=== PATIENT | female | born 1935 | race Caucasian/White ===

== ENCOUNTER 2019-05-22 04:33 | Inpatient (IN) | payer MEDICARE, OTHER, SELFPAY ==
[2019-05-22] VITALS (26 sets, daily range): BP systolic 81–179; BP diastolic 24–68; PULSE 85–133; RESP 14–32; TEMP 35.8–37.6; O2SAT 97–100; BMI 23.2; BMI 22.8
--- NOTE | 2019-05-22 04:54 | CT_ITS ---
STUDY: CT ABDOMEN AND PELVIS WITHOUT CONTRAST REASON FOR EXAM: Female, 84 years old. Abdominal pain for 4 days RADIATION DOSAGE (If Supplied By Facility): CTDIvol = ( 6.05 ) mGy, DLP = ( 287.10 ) mGycm TECHNIQUE: Transaxial images were obtained from the dome of the diaphragm to the symphysis pubis without oral contrast, and without intravenous contrast. Sagittal and coronal images were reconstructed. Individualized dose optimization techniques were used for this CT. COMPARISON: None. FINDINGS: The visualized lung bases are unremarkable. The visualized portions of the heart are within normal limits. Normal liver. Normal gallbladder and extrahepatic biliary system. Normal spleen. Normal pancreas. Normal bilateral adrenal glands. Normal right kidney. There is a simple left renal cyst measuring approximately 4 cm in diameter. There is circumferential thickening of the distal esophagus. Normal visualized stomach. There are dilated fluid-filled loops of small bowel measuring up to 3.5 cm. There is scattered colonic diverticulosis without evidence for diverticulitis. The appendix is nonvisualized. No pneumatosis or free air is visualized. There is diffuse atherosclerotic calcification of the abdominal aorta, without a demonstrated aneurysm. Normal inferior vena cava. Normal retroperitoneum. Normal urinary bladder. Normal abdominal wall. There are diffuse degenerative changes of the visualized lumbar spine. CT/Abdomen/Pelvis without Cont IMPRESSION: Multiple dilated fluid filled loops of small bowel throughout the central abdomen concerning for small bowel obstruction. Transition point is difficult to identify due to lack of oral contrast however likely within the right lower quadrant. The distal ileum is decompressed. There is a small amount of free intra-abdominal fluid. Circumferential wall thickening of the visualized distal esophagus. Further evaluation with endoscopy may be of value. Electronically Signed: Raymond Mclaughlin, at 5:56 EDT Tel , Service support ,
--- NOTE | 2019-05-22 04:56 | ED.DCSUM_ITS ---
History of Present Illness Chief Complaint: Nausea/Vomiting Informant: Patient, Family Onset: Days - 3 to 4 days Context: Gradual Onset Timing: Waxes and wanes Current Severity: Moderate Maximum Severity: Moderate Narrative: Patient presents with a 3 to 4-day history of abdominal cramping, nausea, and vomiting. She denies diarrhea. She did not measure her temperature does report having some chills and sweats. She now points to the epigastric region and describing her area of pain. She has had prior appendectomy and left oophorectomy. Past Medical History - Allergies and Home Meds Allergies/Adverse Reactions: Allergies betaxolol [From Betoptic] Allergy (Verified 05/22/19 04:34) Unknown brimonidine [From Alphagan P] Allergy (Verified 05/22/19 04:34) Unknown cephalexin [From Keflex] Allergy (Verified 05/22/19 04:34) Unknown nabumetone [From Relafen] Allergy (Verified 05/22/19 04:34) Unknown Primary Care Physician: Claire Sharif MD [Primary Care Provider] - Prior records reviewed: Yes Past Medical History: - - Reviewed Surgical History: appendectomy, - - Left oophorectomy Lives: With Family Smoking Status: Former smoker - Family History Maternal Family History: Reports: Cancer, Diabetes Review of Systems General: Reports: Chills, Sweats Eyes: Denies: Visual changes - bilaterally ENT: Denies: Bilateral ear pain Cardiovascular: Denies: Chest pain Respiratory: Denies: Dyspnea Gastrointestinal: Reports: Abdominal pain, Nausea, Vomiting. Denies: Diarrhea Genitourinary: Denies: Dysuria Musculoskeletal: Denies: Back pain Skin: Denies: Rash Neurological: Denies: Headache Endocrine: Denies: Polyuria, Polydipsia Hematologic: Denies: Easy bruising Allergy: Denies: Uticaria Physical Exam Vital Signs/Narrative: Vital Signs Temp Pulse Resp BP Pulse Ox 05/22/19 04:34 98.3 F 85 16 174/66 H 97 Inital Vital Signs reviewed: Yes General: Well nourished, Well developed Head: Normocephalic ENT: Dry mucous membranes Neck: Supple Cardiovascular: Regular rate, Regular rhythm Respiratory: No distress, CTA bilaterally Abdomen: Soft, Normal bowel sounds, Tender - Epigastric tenderness to palpation., - - Abdomen is mildly distended. Extremities: Nontender Skin: Normal color Neurological: Alert, Oriented x3 Psychological: Normal affect Diagnostic/Tx/Re-eval Impressions Abdomen/Pelvis CT 05/22/19 04:54 IMPRESSION: Multiple dilated fluid filled loops of small bowel throughout the central abdomen concerning for small bowel obstruction. Transition point is difficult to identify due to lack of oral contrast however likely within the right lower quadrant. The distal ileum is decompressed. There is a small amount of free intra-abdominal fluid. Circumferential wall thickening of the visualized distal esophagus. Further evaluation with endoscopy may be of value. Electronically Signed: Raymond Mclaughlin, at 5:56 EDT Tel , Service support , 05/22/19 04:54 Abdomen/Pelvis without Cont [CT] Stat 05/22/19 06:18 Abdomen Single View (Portable) [RAD] Stat Laboratory Results 05/22/19 05/22/19 04:44 04:44 WBC 6.9 RBC 4.84 Hgb 14.6 Hct 44.7 MCV 92.4 MCH 30.2 MCHC 32.7 RDW Std Deviation 44.1 H RDW Coeff of Alanna 13.0 Plt Count 428 MPV 9.4 Immature Gran % (Auto) 0.300 Neut % (Auto) 61.2 Lymph % (Auto) 24.9 Harlan % (Auto) 12.6 H Eos % (Auto) 0.4 Baso % (Auto) 0.6 Absolute Neuts (auto) 4.2 Absolute Lymphs (auto) 1.71 Nucleated RBC % 0 Sodium 130 L Potassium 4.7 Chloride 94 L Carbon Dioxide 24.0 Anion Gap 12 BUN 52 H Creatinine 1.37 H Estim Creat Clear Calc 22.35 Est GFR (MDRD) Af Amer 47 L Est GFR (MDRD) Non-Af 39 L BUN/Creatinine Ratio 38.0 H Glucose 231 H Calcium 9.4 Total Bilirubin 0.60 Direct Bilirubin 0.15 AST 10 L ALT 17 Alkaline Phosphatase 65 Total Protein 8.6 H Albumin 3.4 Globulin 5.2 H Lipase 78 - Medical Decision Making Patient was given Zofran and IV fluids. Test results were discussed with the patient and family at bedside. I spoke with Dr. Richards, surgery on-call for [facility] as the patient's primary care physician is Dr. Sharif. She asked that we do place a NG tube. She will follow along in the hospital. I will speak with hospitalist. ED Disposition - Plan for ED Patient: Disposition: Acute Care Hospital [facility] Diagnosis: Small bowel obstruction Referrals: Claire Sharif MD [Primary Care Provider] -
[2019-05-22] MEDS: Ondansetron 4 MG/2 ML Vial IV ×2 (05:00→07:14)
[2019-05-22 05:03] LABS: Absolute Lymphocyte Count 1.71 X10^3/uL (0.83-4.51); Absolute Neutrophil Count 4.2 X10^3/uL (2.0-7.7); Basophil# 0.04 X10^3/uL; Basophil% 0.6 % (0-1); Eosinophil# 0.03 X10^3/uL; Eosinophils% 0.4 % (0-5); Hematocrit 44.7 % (37-47); Hemoglobin 14.6 g/dL (12.0-15.0); Lymphocyte # 1.71 X10^3/ul (4.0); Lymphocyte % 24.9 % (19-41); Mean Corp Hgb Conc 32.7 g/dL (32-36); Mean Corpuscular Hgb 30.2 pg (27.0-32.0); Mean Corpuscular Volume 92.4 fL (81-99); Mean Platelet Vol. 9.4 fl (6.2-12.0); Monocyte# 0.87 X10^3/uL; Monocyte% 12.6 % (0-10); NRBC Flagged by Analyzer 0 % (0-5); Neutrophil # 4.21 X10^3/uL (2.7-7.7); Neutrophil % 61.2 % (47-70); POSITIVE MORPHOLOGY YES; Platelet Count 428 K/mm3 (150-450); RBC Distribution Width SD 44.1 fl (35.1-43.9); Red Blood Count 4.84 M/mm3 (4.2-5.4); White Blood Count 6.9 K/mm3 (4.4-11.0)
[2019-05-22 05:05] LABS: Differential Indicated SCAN CRITERIA MET
[2019-05-22] MEDS: 0.9% Normal Saline 1,000 ML 150 ML IV ×2 (05:12→18:32)
[2019-05-22 05:17] LABS: AST(SGOT) 10 U/L (15-37); Alanine Aminotransfer ALT/SGPT 17 U/L (13-56); Albumin, Serum 3.4 g/dL (3.2-5.0); Alkaline Phosphatase 65 U/L (45-117); Anion Gap 12 (5-15); BUN 52 mg/dL (7-18); Bilirubin, Direct 0.15 mg/dL (0.00-0.30); Calcium,Total 9.4 mg/dL (8.5-10.1); Chloride 94 mmol/L (98-107); Creatinine, Serum 1.37 mg/dL (0.55-1.02); EST Glomerular Filtration Rate 39 mL/min (>60); Est Glom Filt Rate - Afr Amer 47 mL/min (>60); Estimated Creatinine Clearance 22.35 ml/min; Globulin 5.2 g/dL (2.2-4.2); Glucose 231 mg/dL (74-106); Lipase 78 U/L (73-393); Potassium 4.7 mmol/L (3.5-5.1); Protein, Total 8.6 g/dL (6.4-8.2); Sodium Level 130 mmol/L (136-145)
--- NOTE | 2019-05-22 06:18 | RAD_ITS ---
HISTORY: NG PLACEMENT ADDITIONAL HISTORY: None. COMPARISON: CT 05/22/2019 Technique: Supine abdominal radiographs Number of images including paperwork: 1 FINDINGS: Radiograph includes the lower chest and upper abdomen. FREE AIR: None detected. BOWEL GAS PATTERN: Multiple dilated loops of small bowel are present in the upper abdomen consistent with obstruction seen on CT. CALCIFICATIONS: No definite urinary tract calculi. ORGANS: No evidence of organomegaly. SOFT TISSUES: Unremarkable. BONES: No acute skeletal findings. DEVICES: Nasogastric tube is present with tip in the stomach and side-port in the distal esophagus, suggest advancement by about 5 cm. RAD/Abdomen Single View (Portable) IMPRESSION: 1. Multiple dilated loops of small bowel are present in the upper abdomen consistent with obstruction seen on CT. 2. Nasogastric tube is present with tip in the stomach and side-port in the distal esophagus, suggest advancement by about 5 cm. at 0756 Reported and signed by: Adwoa Rodriguez MD Electronically Signed: Adwoa Rodriguez MD at 7:55 EDT Tel , Service support ,
[2019-05-22 06:21] LABS: Mucous, Urine 0 SEEN /hpf (<or=2+)
[2019-05-22 06:23] LABS: Color, Urine Yellow (Yellow); Glucose, Dipstick Normal (Normal); Ketone-Dipstick Negative (Negative); Leukocyte Esterase-Dipstick 500 /ul (Negative); Nitrite-Dipstick Negative (Negative); Occult Blood-Urine Negative /ul (Negative); Protein-Dipstick 30 mg/dl (Negative); Specific Gravity, Urine 1.025 (1.002-1.030); Urine Bilirubin Dipstick Negative (Negative); Urine Clarity Sl. Cloudy (Clear); Urine Urobilinogen Normal (Normal)
[2019-05-22] MEDS: Oxymetazoline 0.05% 1 SPRAY SPRAY.BTL 2 SPRAY NASAL (06:36)
[2019-05-22 06:38] LABS: Red Blood Cells-Urine 0-5 SEEN /hpf (0-5); Squamous Epithelial Cells - UA 0-5 SEEN /hpf (5-10); Transitional Epithelial - Ur 5-10 SEEN /hpf (0-5); White Blood Cells 0-5 SEEN /hpf (0-5)
[2019-05-22] MEDS: Lidocaine 4% 5 ML Ampul 2 ML INHALATION (06:38)
[2019-05-22 06:39] LABS: Bacteria 1+ /hpf (None Seen)
--- NOTE | 2019-05-22 06:45 | NURSING ---
301 SBO, MERCEDES, DEHYDRATION, HYPONATREMIA SEMENTI
--- NOTE | 2019-05-22 07:22 | PCM.HP.STD ---
Problem List (1) Dehydration Status: Acute (2) MERCEDES (acute kidney injury) Status: Acute (3) Hyponatremia Status: Acute (4) Hyperphosphatemia Status: Acute (5) Small bowel obstruction Status: Acute (6) Vertigo Status: Chronic (7) Diabetes Status: Chronic Qualifiers: Diabetes mellitus type: type 2 (8) Hyperlipidemia Status: Chronic (9) Hypertension Status: Chronic Qualifiers: Hypertension type: essential hypertension Qualified Code(s): I10 - Essential (primary) hypertension (10) Tobacco dependence in remission Status: Chronic History of Present Illness Date of Admission: 05/22/19 Chief Complaint: nausea, vomiting, abdominal pain for 4 days The patient is a 84 year old F with a PMH of DM II, HTN, glaucoma and HLD who presented to the emergency department at [facility] on 05/22/2019 complaining of a 4-day history of nausea, vomiting, abdominal pain. Her abdomen has been distended. She is not passing flatus and has not had a bowel movement for several days. She has had an Appy in the past. Denies any hx of bowel obstruction. She feels weak. She denies fever/chills. Vital signs at presentation to the emergency room were temperature 98.3, pulse rate 85, blood pressure 174/66, respiratory rate 16 and she is 97% saturated on room air. CBC shows a normal white blood cell count at 6.9 with an unremarkable differential. Hemoglobin is 14.6 and platelets are 428,000. Sodium was low at 130 and the chloride is low at 94. The BUN is 52 with a creatinine of 1.37, the last creatinine on record was 0.97. The BUN/creatinine ratio is markedly elevated at 38. Phosphorus is elevated at 5.3 and the magnesium is borderline low at 1.6. LFTs are unremarkable. A UA showed an increased specific gravity 1.025 with 0-5 RBCs and 0-5 WBCs. There was 1+ bacteria. CT scan of the abdomen and pelvis showed a couple dilated fluid-filled loops of small bowel throughout the central abdomen with a transition point likely within the right lower quadrant area there was circumferential wall thickening of the visualized distal esophagus. An NG was placed in the Ed and she was admitted to the hospital with a dx of SBO. Past Medical History Past Medical History (Chronic Problems): Chronic Problems Tobacco dependence in remission (Chronic) Vertigo (Chronic) Diabetes (Chronic) Hypertension (Chronic) Hyperlipidemia (Chronic) Allergies betaxolol [From Betoptic] Allergy (Verified 05/22/19 04:34) Unknown brimonidine [From Alphagan P] Allergy (Verified 05/22/19 04:34) Unknown cephalexin [From Keflex] Allergy (Verified 05/22/19 04:34) Unknown nabumetone [From Relafen] Allergy (Verified 05/22/19 04:34) Unknown Home Medications: Ambulatory Orders Medication Instructions Recorded Acetaminophen [Tylenol] 500 mg PO Q4H PRN PRN 04/04/17 Amlodipine Besylate [Norvasc] 2.5 mg PO QHS 04/04/17 Aspirin E.C. 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 Denies: Chills, Fever Eyes: Denies: Blurred vision HEENT: Denies: Difficulty Swallowing, Head Aches, Sinus Congestion, Sinus Drainage, Sore Throat Cardiovascular: Reports: Light Headedness - when standing. Denies: Chest Pain, Palpitations Respiratory: Denies: Cough, Shortness of breath at rest, Sputum production Gastrointestinal: Reports: Abdominal Pain, Nausea, Vomiting, - - no flatus and no BM for the past few days Genitourinary: Denies: Dysuria Gynecological: Denies: Breast symptoms Musculoskeletal: Denies: Joint Pain, Joint Tenderness Skin: Denies: Jaundice, Rash, Wounds Neurological: Denies: Balance problems, Slurred speech, Confusion, Focal weakness, Numbness, Tingling, Seizures Psychiatric: Denies: Anxiety, Depression, Homicidal Ideations, Suicidal Ideations Endocrine: Denies: Hx of Thyroiditis Hematologic/ Lymphatic: Denies: Easy Bruising, Easy Bleeding, Hx of blood clot VTE Information - Inpt Only VTE Present on Admission: No VTE Mechan Device Prophylaxis: Knee High BRITTANY Hose VTE Pharm Prophylaxis ordered?: Yes Patient Problems: Active and Suspected Problems Small bowel obstruction (Acute) Dehydration (Acute) MERCEDES (acute kidney injury) (Acute) Hyponatremia (Acute) Hyperphosphatemia (Acute) - Physical Exam General: Alert, Oriented x3, Cooperative, Well developed, Well nourished, - - she is having cramping in the abd and is intermittently wincing HEENT: Atraumatic, PERRLA, EOMI, Normocephalic Oral: No Gingival or Mucosal Lesions/ Ulcerations, Dry Mucosa Neck: Supple, No JVD, Negative Carotid Bruits, No Nodes, Trachea Midline Lungs: Clear to auscultation Cardiovascular: Regular rate, Regular Rhythm, Normal S1, Normal S2, No murmurs, No Ectopic Activity, No rub noted, No Gallop Abdomen: Distended, Tender - pancho in the RLQ, - - some high pitched BS's in the RUQ Extremities: No clubbing, No cyanosis, No edema, Peripheral Pulses Normal Skin: No rashes, No breakdown Musculoskeletal: No Muscle Wasting, Arthritic Changes Neurological: Cranial nerves II-XII grossly intact, Neuro grossly intact Psych/Mental Status: Normal Affect, Appropriate Vital Signs Temp Pulse Resp BP Pulse Ox 98.3 F 91 16 174/66 H 97 05/22/19 04:34 05/22/19 06:39 05/22/19 06:39 05/22/19 04:34 05/22/19 04:34 Oxygen Delivery Method Room Air Weight: 119 lb Body Mass Index (BMI) 23.2 Finger Stick Blood Glucose 187 Intake and Output for Last 24 Hours 05/20/19 05/21/19 05/22/19 23:59 23:59 23:59 Intake Total 1087.5 / 1087.5 Balance 1087.5 / 1087.5 Laboratory Tests Past 24 Hrs 05/22/19 05/22/19 05/22/19 04:44 04:44 06:15 WBC 6.9 RBC 4.84 Hgb 14.6 Hct 44.7 MCV 92.4 MCH 30.2 MCHC 32.7 RDW Std Deviation 44.1 H RDW Coeff of Alanna 13.0 Plt Count 428 MPV 9.4 Immature Gran % (Auto) 0.300 Neut % (Auto) 61.2 Lymph % (Auto) 24.9 [place] % (Auto) 12.6 H Eos % (Auto) 0.4 Baso % (Auto) 0.6 Absolute Neuts (auto) 4.2 Absolute Lymphs (auto) 1.71 Nucleated RBC % 0 Sodium 130 L Potassium 4.7 Chloride 94 L Carbon Dioxide 24.0 Anion Gap 12 BUN 52 H Creatinine 1.37 H Estim Creat Clear Calc 22.35 Est GFR (MDRD) Af Amer 47 L Est GFR (MDRD) Non-Af 39 L BUN/Creatinine Ratio 38.0 H Glucose 231 H Calcium 9.4 Total Bilirubin 0.60 Direct Bilirubin 0.15 AST 10 L ALT 17 Alkaline Phosphatase 65 Total Protein 8.6 H Albumin 3.4 Globulin 5.2 H Lipase 78 Urine Color Yellow Urine Clarity Sl. Cloudy Urine pH 5.0 Ur Specific [place] 1.025 Urine Protein 30 H Urine Glucose (UA) Normal Urine Ketones Negative Urine Occult Blood Negative Urine Nitrite Negative Urine Bilirubin Negative Urine Urobilinogen Normal Ur Leukocyte Esterase 500 H Urine RBC 0-5 SEEN Urine WBC 0-5 SEEN Ur Squamous Epith Cells 0-5 SEEN Ur Transition Epith Cell 5-10 SEEN Urine Bacteria 1+ Urine Mucus 0 SEEN Assessment/Plan All Active Problems Small bowel obstruction (Acute) Dehydration (Acute) MERCEDES (acute kidney injury) (Acute) Hyponatremia (Acute) Hyperphosphatemia (Acute) Impressions 1. SBO - admitted to [facility] to [facility]. Consult Dr. Richards. Pepcid 20 mg IV BID. Hydrate. 2. Hyponatremia and MERCEDES due to dehydration. IV fluids ordered. recheck lab in the AM 3. HTN/HLD/glaucoma/DMII - no oral meds. IV antihypertensive s ordered PRN for increased BP. Q 6H BS with SSI coverage. 4. DVT prophylaxis with Heparin and TEDS. Patient was seen by Dr. Richards and a T scan of the abdomen and pelvis was done with Gastrografin. There is a small bowel obstruction with the transition point in the right lower quadrant. The oral contrast progressed into the mid small bowel but not beyond the transition point. There was a moderate amount of free fluid in the abdomen. No free air. The decision was made to take the patient to surgery. Postoperatively she was very weak and the ET tube was reinserted. She received approximately 1 L of IV fluid in the OR. Blood pressure upon admission to the ICU was 93 systolic. Lungs are CTA. The CXR shows the end of the ETT to be just above the mitzi and it was withdrawn. The heart is regualr with an increased HR. No peripheral edema. Check an EKG ABG in 30 minutes. Bolus with 1 lit of NS Fentanyl and propofol for sedation ......if the BP does not come up she will not be able to tolerate the propofol and will likely use precedex. There was a questionable area of small bowel and she had about 120 in of jejunum resected......would like to avoid Pressors if possible. Recheck the lab in the AM. Dr. Valerio has been consulted to participate in management. Check a stat BMP and HH now. Supplement the Mag to keep it at about 2. Phosphorus should improve as she is hydrated and kidney function improves. Code Visit Inpatient E&M: 96271 Init Hosp L3
[2019-05-22 07:41] LABS: Bedside Glucose 197 mg/dL (70-110)
[2019-05-22 07:57] LABS: Magnesium 1.6 mg/dL (1.6-2.6); Phosphorus 5.3 mg/dL (2.5-4.9)
[2019-05-22] MEDS: Metoprolol Tartrate 5 MG/5 ML Vial IV ×2 (08:22→14:04)
[2019-05-22] MEDS: 0.9% NaCl Peripheral Flush Adult/Peds IV ×4 (08:25→20:33)
[2019-05-22] MEDS: HYDROmorphone 0.5 MG/0.5 ML SYRINGE 0.25 MG IV ×2 (08:26→10:27)
--- NOTE | 2019-05-22 09:07 | CT_ITS ---
STUDY: CT ABDOMEN AND PELVIS WITHOUT IV CONTRAST REASON FOR EXAM: Female, 84 years old. Pain. Dehydration. RADIATION DOSAGE (If Supplied By Facility): CTDIvol = ( 6.23 ) mGy, DLP = ( 294.15 ) mGycm TECHNIQUE: Transaxial images were obtained from the dome of the diaphragm to the symphysis pubis with oral contrast and without intravenous contrast. Sagittal and coronal images were reconstructed. Individualized dose optimization techniques were used for this CT. COMPARISON: 05/22/2019 FINDINGS: The visualized lung bases are clear. The visualized portions of the heart and pericardium are within normal limits. There are no calcified gallstones present. The liver, spleen, pancreas and adrenal glands demonstrate an unremarkable unenhanced appearance. There are no renal or ureteral stones. There is no hydronephrosis. There is a stable cyst in the left kidney. Normal visualized stomach. There are multiple dilated loops of small bowel with collapsed loops noted distally. This is consistent with a small bowel obstruction. The oral contrast has progressed to the mid small bowel, but not beyond the transition point. There are thickened loops of small bowel in right lower quadrant, consistent with enteritis. The patient is status post appendectomy. The aorta is normal in caliber. There are atherosclerotic calcifications noted in the aorta. There is a moderate amount of ascites. There is no free air. There is no fluid collection identified on this noncontrast examination. There are no destructive osseous lesions. CT/Abdomen/Pel W ORAL Cont Only IMPRESSION: Small bowel obstruction with the transition point in the right lower quadrant. The oral contrast has progressed into the mid small bowel, but not beyond the transition point. A follow-up examination can be considered to assess for further passage of the contrast. Thickened loops of small bowel in right lower quadrant, consistent with enteritis. Moderate amount of free fluid. No free air. No fluid collection identified on this noncontrast study. Electronically Signed: Augie Perez, at 13:00 EDT Tel , Service support ,
--- NOTE | 2019-05-22 09:15 | RAD_ITS ---
STUDY: X-RAY - ABDOMEN/PELVIS REASON FOR EXAM: Female, 84 years old. An NG tube advanced 5 cm. TECHNIQUE: Single AP view of the abdomen / pelvis. COMPARISON: May 22, 2019 (0706 hours) FINDINGS: Normal visualized lung bases. The NG tube is now seen looped in the proximal stomach. There is continued dilatation of multiple small bowel loops consistent with small bowel obstruction. There is no demonstrated free abdominal air. The visualized liver, spleen and kidneys are grossly normal in size and morphology. Normal soft tissue structures. There are diffuse degenerative changes of the visualized lumbar spine. RAD/Abdomen Single View IMPRESSION: 1. NG tube advanced into the gastric fundus. 2. Continued small bowel dilatation unchanged from the prior exam. Electronically Signed: Omkar Estrada DO at 10:16 EDT Tel [phone], Service support ,
--- NOTE | 2019-05-22 09:16 | NURSING ---
This nurse aware of KUB results and that it says to advance 5cm. This nurse assisted Mabel RN into Advancing NG tube 5cm. Another KUB is ordered after advancement. Pt still painful despite getting dilaudid.
--- NOTE | 2019-05-22 10:37 | CON.PCM_ITS ---
- Consult Date of Consult: 05/22/19 - Reason for Consult Chief Complaint: abdominal pain History of Present Illness: 84 y/o pleasant WF presents with abdominal pain. Has had about 4-5 days history of constipation and obstipation. No previous history of bowel obstruction in the past. She states that she normally has a regular bowel movement every day. Denies antecedent symptoms. Also has symptoms of nausea and emesis. Presents to ED [facility] with noncontrast CT scan revealing possible SBO. Has normal WBC with normal differential, but has electrolyte abnormalities and elevated BUN/creat. Past Medical History: History of gout diabetes osteopenia hyperlipidemia Past Surgical History: appendectomy unilateral salpingo-oopherectomy cataract surgery Medications: simvastatin (ZOCOR) 10 mg tablet Take 1 tablet by mouth daily at bedtime. amLODIPine (NORVASC) 2.5 mg tablet Take 1 tablet by mouth once daily. metoprolol tartrate, short acting, (LOPRESSOR) 100 mg tablet Take 2 tablets by mouth twice daily. metFORMIN (GLUCOPHAGE) 500 mg tablet Take 2 tablets by mouth twice daily. losartan (COZAAR) 100 mg tablet Take 1 tablet by mouth once daily. glimepiride (AMARYL) 2 mg tablet Take 0.5 tablets by mouth twice daily with meals. latanoprost (XALATAN) 0.005 % ophthalmic solution Use 1 Drop in both eyes daily at bedtime. TO AFFECTED EYE(S) ASPIRIN 81 MG ORAL TAB Take one (1) tablet daily . VIT A/VIT C/BIOFLAV/ZN/HERB25 (ECHINACEA ACZ ORAL) Take 1 capsule by mouth twice daily. Allergies: Has no known drug allergies Social history: TOB use denies ETOH use minimal, occasional social only Review of Systems: General - notes chills/sweats, denies fevers, has no appetite Cardiovascular denies chest pain, denies history of heart attack Pulmonary denies shortness of breath, denies coughing up blood Gastrointestinal as per HPI, had colonoscopy in 2016 Neurological denies seizures Genitourinary denies burning with urination, denies blood in urine Hematological denies spontaneous/prolonged bleeding Skin denies open non healing wounds Musculoskeletal has osteo-arthritis Endocrine has diabetes Psychological denies hallucinations Physical examination: Vital signs Temp 99.6F BP 160/53 RR 16 HR 88 General WD/WN WF in no apparent distress, alert and oriented, not septic appearing HEENT Normocephalic. EOM intact with sclera clear and no icterus noted. Neck is supple with no jugular venous distention noted. Trachea is midline. Lungs normal breath sounds No rales/rhonchi/wheezing noted. No labored breathing noted, such as retractions. No cough heard. Heart normal heart sounds, regular. No rubs/clicks/murmurs noted. Abdomen soft but distended and tympanitic, no peritoneal signs, no bowel sounds. Extremities no calf tenderness noted. No pitting edema noted. Genitourinary/Rectal deferred Skin normal skin integrity - dermal thinning due to age related changes noted Neurological cranial nerves II-XII intact. Normal motor strength in arms and legs. No localized numbness detected. Psychological normal affect, patient is calm and appropriate Impression: small bowel obstruction Discussion/Plan: I have discussed the above with the patient. Will obtain CT scan with oral contrast, this will help delineate point of obstruction, and also may be therapeutic. If no contrast seen in colon, may need to proceed to surgery. I have explained the procedure to the patient and her daughter who is present with her I have counseled the patient as to the risks of the procedure, including but not limited to: infection, bleeding, injury to any blood vessels/nerves, scar tissue, injury to any intrabdominal organs, injury to kidney/ureters, injury to bowel/bladder, intraabdominal abscess/bleeding, hernias at incisional sites, wound infections, possible open procedure, complications of anesthesia, postop erative pneumonia/cardiac problems/blood clots etc. the patient understands. She agrees to proceed if necessary I have answered all questions to the patient?s satisfaction and the patient has no further questions.
[2019-05-22 12:11] LABS: Bedside Glucose 180 mg/dL (70-110)
--- NOTE | 2019-05-22 13:30 | PCM.PN.BLA ---
Progress Note I have review most recent CT scan with oral contrast and also reexamined patient. Clinically she is not improving and the appearance of her small bowel of the CT scan in my opinion is worsened. Therefore will proceed urgently to surgery. I have explained that this will be an open laparotomy - she has a previous midline abdominal incision. Plan lysis of adhesions, possible enterectomy if any small bowel is compromised. She may required postop recovery in the PCU or ICU and I have explained this to patient and her daughter. They both agree to proceed with above.
--- NOTE | 2019-05-22 14:30 | COL_PTH ---
PATIENT: VERONICA HUNT LOC: [facility] U#:[id number] AGE/SX: 84/F ROOM: ICU03 RE05/22/[address]: Dr. Francisco Motta MD : [id number] BED: 1 DIS: 05/28/2019 SPEC #: [id number] RECD: 05/24/19 08:10 STATUS: LYUDMILA REAshley #: [id number] VIDYA: 05/22/19 14:[address]: Viktoriya Richards DEPT: SURGICAL PATHOLOGY RECD BY: Moise Awan ENTERED: 05/24/19 11:36 SP TYPE: COLON OTHR DR: DO Dr. Des Roberts DO Dr. Liza D Talampas, MD Dr. Nicholas F Kotsonis, MD Tissues: Colon, NOS Procedures: Surgery Specimen Level V HEADER OPERATION: Laparotomy, lysis of adhesions, bowel resection PRE-OP DIAGNOSIS: Small bowel obstruction TISSUE SUBMITTED: Small bowel MICROSCOPIC DIAGNOSIS Small bowel, segmental resection: Segments of small bowel with transmural congestion, clinically small bowel obstruction. Mesenteric tissue with congestion and hemorrhage. SJ:tera 05/25/19 MICROSCOPIC DESCRIPTION Slides are reviewed. GROSS DESCRIPTION Received in fixative is one container labeled with the patient's name and designated small bowel. The specimen consists of two segments of unoriented bowel. One segment measures 19 cm in length and the other segment measures 21 cm in length. The serosal surface is smooth and glistening. No gross perforations are evident. Both ends of both segments are stapled. The larger segment contains a possible area of ring-like constriction located 7 cm from one stapled margin. The serosal surface is this area is inked. A similar partial ring is identified at the opposite end of this segment of bowel located 2 cm from the adjacent stapled end. The serosa in this area is also inked. The other segment of bowel does not contain any such abnormalities. The small bowel mucosa is mostly yellow-montana in color. Adjacent to this is reddish-montana in color in area adjacent to the largest serosal ring. Cassandra Architect sections are submitted in five cassettes as follows: 1 - largest possible constricted serosal ring, 2 - smaller possible constricted serosal ring, 3 & 4 - mucosa adjacent to largest possible serosal ring, 5 - registration representative section from smaller segment of bowel with no gross abnormality. / AM:tera 05/24/19 TC:Shanw CPT: 50428
--- NOTE | 2019-05-22 15:09 | PCA ---
pt off floor
[2019-05-22 15:10] LABS: Bedside Glucose 151 mg/dL (70-110)
--- NOTE | 2019-05-22 16:29 | NURSING ---
Dr. Richards was unable to get ahold of patient's daughter Aniyah, P.O.A. of patient. This nurse was able to get a hold of her and inform her that Dr. Richards will be taking pt to ICU and will meet her in waiting room to talk to her.
--- NOTE | 2019-05-22 16:45 | NURSING ---
Upon arrival from OR, pt on ventilator, restless and attempting to pull at tubes, unable to re-direct at this time, bilat soft wrist restraints applied for patient safety
--- NOTE | 2019-05-22 16:53 | PCM.OPRPT ---
Report of Operation Date of Procedure: 05/22/19 Pre-Operative Diagnosis: small bowel obstruction - complete Post-Operative Diagnosis: small bowel obstruction, complete, due to adhesions, compromised segment of small bowel Surgery/Procedure Performed:: exploratory laparotomy, lysis of adhesions, small bowel enterectomy Description of Surgical Findings:: segment of small bowel compromised - closed loop obstruction due to adhesions in the lower abdomen - 10 inches resected - jejunum Type of Anesthesia:: General Anesthesiologist: Deja Dao Specimen's removed: small bowel - jejunum Estimated Blood Loss (mL): 20 ml Fluids Replaced: 1000 ml RL Description of Procedure: After informed consent was obtained, the patient was brought to the Operating Room. Appropriate time out protocol was followed. She was then placed in the supine position. The patient was then placed under anesthesia. The abdomen was then prepped with a sterile surgical skin preparation. Sterile surgical drapes were placed. A skin incision was then made with a 10 blade scalpel at the midline extending superior and inferior to the umbilical dimple. It was carried down to the fascia. Hemostasis was controlled with electrocautery The abdominal cavity was entered. There was minimally cloudy peritoneal fluid noted - but no bile or purulence. The omentum distally was adherent to the right lower quadrant, these adhesions were taken down using electrocautery. There was a closed loop of distal jejunum that was compromised and this was located in a dense cluster of adhesions. These adhesions were taken down by blunt dissection and electrocautery. The closed loop was a segment of small bowel - about 25 cm appeared compromised and it was resected. This was approximated 25 - 30 cm from the ileocecal valve.. Linear gastrointestinal stapling devices were fired distally and proximal to chosen sites of normal bowel. The mesentery was incised with cautery and the vasculature was sequentially clamped and then ligated with vicryl suture. However, a more proximal area of small bowel appeared also poorly viable and additional small bowel was resected in the above fashion. The anastomosis was made in a side to side, functional end to end fashion. The corners of the stapled proximal and distal ends were transected and the stapling device was applied to attach the antimesenteric medley together. The opening created was then closed with a TA 60 stapling device. The mesenteric opening was closed with running vicryl suture. Hemostasis was carefully checked. The abdominal cavity was vigorously irrigated with saline solution. No active bleeding was noted. The fascia was reapproximated with #1 looped PDS suture. The skin wound was irrigated with dilute betadyne The skin incision was reapproximated with skin jory. Sterile dry dressing was applied over the wound The patient was attempted to be extubated but was too respiratorily weak and therefore was reintubated. She was brought to the ICU in fair condition. - Complications none noted - Admit VTE Documentation VTE Present on Admission: Yes VTE Mechan Device Prophylaxis: SCD's
--- NOTE | 2019-05-22 16:58 | EKG12_ITS ---
Test Reason : POST SURGERY Blood Pressure : / mmHG Vent. Rate : 097 BPM Atrial Rate : 097 BPM P-R Int : 122 ms QRS Dur : 078 ms QT Int : 380 ms P-R-T Axes : 054 -02 015 degrees QTc Int : 482 ms Sinus rhythm with marked sinus arrhythmia with Premature atrial complexes Nonspecific ST abnormality Abnormal ECG Confirmed by KENIA ANDRADE, ANTWON ([id number]), editor map ALANNA VERDUGO ([id number]) on 06/02/2019 2:19:36 PM Referred By: JEOVANY Confirmed By:ANTWON AQUINO MD
--- NOTE | 2019-05-22 17:00 | RAD_ITS ---
STUDY: X-RAY CHEST REASON FOR EXAM: Female, 84 years old. ET tube placement TECHNIQUE: Single AP portable view of the chest. COMPARISON: May 22, 2019 chest x-ray FINDINGS: The endotracheal tube is present the tip is just above the mitzi approximately 1 cm. This should be pulled back 1 to 1.5 cm. NG tube tip is in the stomach. The lungs are clear and expanded. There is no demonstrated pleural abnormality. Normal size heart. Normal mediastinum and kishor. Normal visualized pulmonary arteries. There is atherosclerotic calcification of the aortic arch with tortuosity. There are diffuse degenerative changes of the visualized thoracic spine. Normal visualized ribs, clavicles, and shoulders. There is no demonstrated abnormality of the visualized soft tissue structures of the upper abdomen. RAD/Chest 1 View (Portable) IMPRESSION: Endotracheal tube is slightly deep, 1 cm above the mitzi could be pulled back 1.5 cm. The NG tube tip is in the stomach. Electronically Signed: Francisca Lozano MD at 17:30 EDT Tel , Service support ,
[2019-05-22 17:21] LABS: Allen Test POS; Base Excess -11 mmol/L (-2 to +2); Bicarbonate 15.3 mmol/L (22-26); Blood Gas Specimen Type ART; FI02 30; Mode A-C; O2 Delivery Device Vent; PEEP 5; PO2 106 mmHG (75-100); RR 14; SITE R Radial; SO2 98 % (95-99); Time Given 1713; Total Carbon Dioxide 16 mmol/L; Vt 450; pCO2 29.3 mmHg (35-45); pH 7.33 (7.35-7.45)
[2019-05-22] MEDS: fentaNYL drip 100 ML 2.5 MCG IV (17:25)
[2019-05-22] MEDS: 0.9% Normal Saline 1,000 ML 999 ML IV (17:25)
[2019-05-22] MEDS: Propofol 10MG/Ml 1,000 MG/100 ML Bottle 3.2 MG CONT INF (17:30)
[2019-05-22 17:35] LABS: Bedside Glucose 211 mg/dL (70-110)
[2019-05-22 18:03] LABS: Hematocrit 39.2 % (37-47); Hemoglobin 12.5 g/dL (12.0-15.0)
[2019-05-22 18:17] LABS: Anion Gap 12 (5-15); BUN 40 mg/dL (7-18); BUN/Creat Ratio 39.2 RATIO (10-20); Calcium,Total 7.3 mg/dL (8.5-10.1); Chloride 107 mmol/L (98-107); Creatinine, Serum 1.02 mg/dL (0.55-1.02); EST Glomerular Filtration Rate 55 mL/min (>60); Est Glom Filt Rate - Afr Amer 67 mL/min (>60); Estimated Creatinine Clearance 30.02 ml/min; Glucose 234 mg/dL (74-106); Potassium 4.5 mmol/L (3.5-5.1); Sodium Level 138 mmol/L (136-145)
[2019-05-22 18:20] LABS: CPK Total, Creatine Kinase 57 U/L (26-192); Triglycerides 210 mg/dL
[2019-05-22] MEDS: Insulin Lispro 100 UNIT/ML INSULN.PEN SC (18:26)
[2019-05-22] MEDS: Chlorhexidine 15 ML PO (21:40)
[2019-05-22] MEDS: Latanoprost 0.005% 1 Bottle 1 DRP EACH EYE (21:44)
[2019-05-22 23:51] LABS: Bedside Glucose 250 mg/dL (70-110)
[2019-05-23] VITALS (39 sets, daily range): BP systolic 92–211; BP diastolic 26–66; PULSE 83–139; RESP 14–35; TEMP 36.5–37.3; O2SAT 94–100
[2019-05-23] MEDS: Insulin Lispro 100 UNIT/ML INSULN.PEN SC ×4 (00:20→18:05)
[2019-05-23] MEDS: 0.9% Normal Saline 1,000 ML 150 ML IV ×4 (00:20→19:46)
[2019-05-23] MEDS: CHLORHEXIDINE GLUC 2% CLOTH 1 EACH TOWELETTE TOPICAL (02:36)
[2019-05-23] MEDS: 0.9% NaCl Peripheral Flush Adult/Peds IV (04:06)
[2019-05-23 04:17] LABS: Absolute Lymphocyte Count 0.29 X10^3/uL (0.83-4.51); Absolute Neutrophil Count 5.1 X10^3/uL (2.0-7.7); Basophil# 0.04 X10^3/uL; Basophil% 0.7 % (0-1); Hematocrit 30.7 % (37-47); Hemoglobin 9.9 g/dL (12.0-15.0); Lymphocyte # 0.29 X10^3/ul (4.0); Lymphocyte % 4.9 % (19-41); Mean Corp Hgb Conc 32.2 g/dL (32-36); Mean Corpuscular Hgb 30.1 pg (27.0-32.0); Mean Corpuscular Volume 93.3 fL (81-99); Mean Platelet Vol. 9.5 fl (6.2-12.0); Monocyte# 0.41 X10^3/uL; Monocyte% 6.9 % (0-10); NRBC Flagged by Analyzer 0 % (0-5); Neutrophil # 5.13 X10^3/uL (2.7-7.7); Neutrophil % 86.8 % (47-70); POSITIVE DIFFERENTIAL YES; POSITIVE MORPHOLOGY YES; Platelet Count 248 K/mm3 (150-450); RBC Distribution Width CV 13.2 % (11.6-14.6); RBC Distribution Width SD 45.1 fl (35.1-43.9); Red Blood Count 3.29 M/mm3 (4.2-5.4); White Blood Count 5.9 K/mm3 (4.4-11.0)
[2019-05-23 04:19] LABS: Differential Indicated SCAN CRITERIA MET
[2019-05-23 04:42] LABS: Anion Gap 10 (5-15); BUN 32 mg/dL (7-18); BUN/Creat Ratio 34.1 RATIO (10-20); Calcium,Total 7.2 mg/dL (8.5-10.1); Chloride 112 mmol/L (98-107); Creatinine, Serum 0.94 mg/dL (0.55-1.02); EST Glomerular Filtration Rate 61 mL/min (>60); Est Glom Filt Rate - Afr Amer 73 mL/min (>60); Estimated Creatinine Clearance 32.57 ml/min; Glucose 257 mg/dL (74-106); Magnesium 2.1 mg/dL (1.6-2.6); Phosphorus 2.5 mg/dL (2.5-4.9); Potassium 3.8 mmol/L (3.5-5.1); Sodium Level 140 mmol/L (136-145)
[2019-05-23 05:16] LABS: Differential Comment SCANNED
[2019-05-23] MEDS: Heparin Injection (Vial) 5,000 UNIT/ML VIAL 5000 UNIT SC ×3 (05:49→22:17)
[2019-05-23] MEDS: Propofol 10MG/Ml 1,000 MG/100 ML Bottle 4.8 MG CONT INF (05:50)
[2019-05-23] MEDS: TITRATION PARAMETER CHANGE 1 EACH IV (05:57)
--- NOTE | 2019-05-23 06:18 | CON.PCM_ITS ---
Reason for Consult Date of Consultation: 05/23/19 Reason for Consultation: Respiratory failure History of Present Illness: The patient is an 84-year-old female, with a history as outlined below, who initially presented to the emergency department on May 22 with complaints of abdominal pain, nausea and vomiting. The patient has no history of any lung pathology. She does not utilize supplemental oxygen at her baseline. On presentation to the emergency department, the patient was noted to be afebrile and hemodynamically stable. Initial laboratory evaluation revealed no evidence of a leukocytosis. Chemistry profile was remarkable for a sodium of 130, chloride of 94 and elevated creatinine of 1.37. A CT abdomen/pelvis was obtained which revealed multiple dilated fluid-filled loops of small bowel throughout the central abdomen concerning for small bowel obstruction. Given these findings, the patient was taken to the OR by general surgery where she underwent exploratory laparotomy, lysis of adhesions and small bowel enterectomy. Intraoperative blood loss was only noted to be 20 mL's. The patient received 1 L of intraoperative fluid replacement. Postoperatively, the patient was noted to have been extubated. However, she apparently decompensated from a respiratory perspective following extubation, likely to still been under the effects of general anesthesia. The patient was therefore reintubated and transferred to the medical intensive care unit for further management. This morning, the patient failed her spontaneous awakening/breathing trial due to the development of tachycardia and tachypnea. The patient is currently on both propofol and fentanyl. She is currently awake and does endorse the presence of a great deal of anxiety. Past Medical History Past Medical History (Chronic Problems): Chronic Problems Tobacco dependence in remission (Chronic) Vertigo (Chronic) Diabetes (Chronic) Hypertension (Chronic) Hyperlipidemia (Chronic) Allergies betaxolol [From Betoptic] Allergy (Verified 05/22/19 07:52) Itching brimonidine [From Alphagan P] Allergy (Verified 05/22/19 07:52) Itching cephalexin [From Keflex] Allergy (Verified 05/22/19 07:52) Rash nabumetone [From Relafen] Allergy (Verified 05/22/19 07:52) Rash Home Medications: Ambulatory Orders Medication Instructions Recorded Acetaminophen [Tylenol] 500 mg PO Q4H PRN PRN 04/04/17 Amlodipine Besylate [Norvasc] 2.5 mg PO QHS 04/04/17 Aspirin E.C. 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 ECONOMIC History: - - has had her left ovary removed Lives: With Family Smoking Status: Former smoker Tobacco Use: Non-smoker Alcohol: Rare Drugs: None - *Family History Maternal History Items: Cancer, Diabetes Review of Systems Constitutional: Denies: Chills, Fever Eyes: Denies: Blurred vision, Double vision HEENT: Denies: Head Aches, Sinus Congestion, Sinus Drainage Cardiovascular: Denies: Chest Pain, Palpitations Respiratory: Denies: Cough, Shortness of breath at rest, Sputum production Gastrointestinal: Reports: Abdominal Pain, Nausea, Vomiting Genitourinary: Denies: Dysuria Musculoskeletal: Denies: Joint Pain, Joint Tenderness Skin: Denies: Rash, Wounds Neurological: Denies: Numbness, Tingling, Focal weakness Psychiatric: Reports: Anxiety Hematologic/ Lymphatic: Denies: Easy Bruising, Easy Bleeding Patient Problems: Active and Suspected Problems Small bowel obstruction (Acute) Dehydration (Acute) MERCEDES (acute kidney injury) (Acute) Hyponatremia (Acute) Hyperphosphatemia (Acute) Objective: The patient's most recent lab work, culture data and imaging studies have all been personally reviewed. - Physical Exam General: - - Currently intubated, sedated and mechanically ventilated. No ventilator dyssynchrony noted on assist control. HEENT: Atraumatic, PERRLA, Normocephalic Oral: No Gingival or Mucosal Lesions/ Ulcerations, - - Endotracheal tube currently in place Neck: Supple, No Nodes, Trachea Midline Lungs: - - Clear across anterior lung hansen without appreciable wheezes, rales or rhonchi. Cardiovascular: Normal S1, Normal S2, No murmurs, Tachycardic Abdomen: Soft, Non Tender Extremities: No clubbing, No cyanosis, No edema Skin: No breakdown Musculoskeletal: No Tenderness to Palpation of Joints or Extremities Lymphatic: No Cervical, Supraclavicular, or Inguinal Adenopathy Neurological: - - No focal neurological deficits. Psych/Mental Status: Anxious, Restless Vital Signs Temp Pulse Resp BP Pulse Ox 98.6 F 134 H 18 146/48 H 99 05/23/19 04:00 05/23/19 05:15 05/23/19 05:15 05/23/19 05:15 05/23/19 05:15 Oxygen Delivery Method Mechanical Ventilator Weight: 125 lb 3.561 oz Body Mass Index (BMI) 22.8 Finger Stick Blood Glucose 187 Intake and Output for Last 24 Hours 05/21/19 05/22/19 05/23/19 23:59 23:59 23:59 Intake Total 4472.52 / 4472.52 1028.88 / 1028.88 Output Total 1545 / 1545 Balance 2927.52 / 2927.52 1028.88 / 1028.88 Laboratory Tests Past 24 Hrs 05/22/19 05/22/19 05/22/19 04:44 06:15 17:14 WBC RBC Hgb Hct MCV MCH MCHC RDW Std Deviation RDW Coeff of Alanna Plt Count MPV Immature Gran % (Auto) Neut % (Auto) Lymph % (Auto) [place] % (Auto) Eos % (Auto) Baso % (Auto) Absolute Neuts (auto) Absolute Lymphs (auto) Nucleated RBC % Differential Comment Specimen Type ART Sample Site R Radial pH 7.33 L Bicarbonate Actual 15.3 L POC Total CO2 16 Base Excess -11 L O2 Saturation 98 O2 % 30 ABG pCO2 29.3 L ABG pO2 106 H Binu Test POS Respiration Rate 14 O2 Delivery Device Vent Minute Volume 7.00 Vent Mode A-C Tidal Volume 450 POC PEEP 5 Blood Gas Notified Whom HOSP Blood Gas Notified Time 1713 Sodium Potassium Chloride Carbon Dioxide Anion Gap BUN Creatinine Estim Creat Clear Calc Est GFR (MDRD) Af Amer Est GFR (MDRD) Non-Af BUN/Creatinine Ratio Glucose Calcium Phosphorus 5.3 H Magnesium 1.6 Total Creatine Kinase Triglycerides Urine Color Yellow Urine Clarity Sl. Cloudy Urine pH 5.0 Ur Specific [place] 1.025 Urine Protein 30 H Urine Glucose (UA) Normal Urine Ketones Negative Urine Occult Blood Negative Urine Nitrite Negative Urine Bilirubin Negative Urine Urobilinogen Normal Ur Leukocyte Esterase 500 H Urine RBC 0-5 SEEN Urine WBC 0-5 SEEN Ur Squamous Epith Cells 0-5 SEEN Ur Transition Epith Cell 5-10 SEEN Urine Bacteria 1+ Urine Mucus 0 SEEN 05/22/19 05/22/19 05/22/19 17:45 17:45 17:45 WBC RBC Hgb 12.5 Hct 39.2 MCV MCH MCHC RDW Std Deviation RDW Coeff of Alanna Plt Count MPV Immature Gran % (Auto) Neut % (Auto) Lymph % (Auto) [place] % (Auto) Eos % (Auto) Baso % (Auto) Absolute Neuts (auto) Absolute Lymphs (auto) Nucleated RBC % Differential Comment Specimen Type Sample Site pH Bicarbonate Actual POC Total CO2 Base Excess O2 Saturation O2 % ABG pCO2 ABG pO2 Binu Test Respiration Rate O2 Delivery Device Minute Volume Vent Mode Tidal Volume POC PEEP Blood Gas Notified Whom Blood Gas Notified Time Sodium 138 Potassium 4.5 Chloride 107 Carbon Dioxide 19.0 L Anion Gap 12 BUN 40 H Creatinine 1.02 Estim Creat Clear Calc 30.02 Est GFR (MDRD) Af Amer 67 Est GFR (MDRD) Non-Af 55 L BUN/Creatinine Ratio 39.2 H Glucose 234 H Calcium 7.3 L Phosphorus Magnesium Total Creatine Kinase 57 Triglycerides 210 H Urine Color Urine Clarity Urine pH Ur Specific [place] Urine Protein Urine Glucose (UA) Urine Ketones Urine Occult Blood Urine Nitrite Urine Bilirubin Urine Urobilinogen Ur Leukocyte Esterase Urine RBC Urine WBC Ur Squamous Epith Cells Ur Transition Epith Cell Urine Bacteria Urine Mucus 05/23/19 05/23/19 05/23/19 Unknown Unknown Unknown WBC 5.9 RBC 3.29 L Hgb 9.9 L Hct 30.7 L MCV 93.3 MCH 30.1 MCHC 32.2 RDW Std Deviation 45.1 H RDW Coeff of Alanna 13.2 Plt Count 248 MPV 9.5 Immature Gran % (Auto) 0.700 Neut % (Auto) 86.8 H Lymph % (Auto) 4.9 L [place] % (Auto) 6.9 Eos % (Auto) 0.0 Baso % (Auto) 0.7 Absolute Neuts (auto) 5.1 Absolute Lymphs (auto) 0.29 L Nucleated RBC % 0 Differential Comment SCANNED Specimen Type Sample Site pH Bicarbonate Actual POC Total CO2 Base Excess O2 Saturation O2 % ABG pCO2 ABG pO2 Binu Test Respiration Rate O2 Delivery Device Minute Volume Vent Mode Tidal Volume POC PEEP Blood Gas Notified Whom Blood Gas Notified Time Sodium 140 Potassium 3.8 Chloride 112 H Carbon Dioxide 18.0 L Anion Gap 10 BUN 32 H Creatinine 0.94 Estim Creat Clear Calc 32.57 Est GFR (MDRD) Af Amer 73 Est GFR (MDRD) Non-Af 61 BUN/Creatinine Ratio 34.1 H Glucose 257 H Calcium 7.2 L Phosphorus 2.5 Cancelled Magnesium 2.1 Total Creatine Kinase Triglycerides Urine Color Urine Clarity Urine pH Ur Specific [place] Urine Protein Urine Glucose (UA) Urine Ketones Urine Occult Blood Urine Nitrite Urine Bilirubin Urine Urobilinogen Ur Leukocyte Esterase Urine RBC Urine WBC Ur Squamous Epith Cells Ur Transition Epith Cell Urine Bacteria Urine Mucus POC Glucose 05/22/19 05/22/19 05/22/19 23:46 16:49 14:07 POC Glucose 250 H 211 H 151 H 05/22/19 05/22/19 11:51 07:38 POC Glucose 180 H 197 H Clinical Impression(s) from Imaging Studies Abdomen/Pelvis CT 05/22/19 04:54 IMPRESSION: Multiple dilated fluid filled loops of small bowel throughout the central abdomen concerning for small bowel obstruction. Transition point is difficult to identify due to lack of oral contrast however likely within the right lower quadrant. The distal ileum is decompressed. There is a small amount of free intra-abdominal fluid. Circumferential wall thickening of the visualized distal esophagus. Further evaluation with endoscopy may be of value. Electronically Signed: Raymond Mclaughlin, at 5:56 EDT Tel , Service support , KUB X-Ray 05/22/19 06:18 IMPRESSION: 1. Multiple dilated loops of small bowel are present in the upper abdomen consistent with obstruction seen on CT. 2. Nasogastric tube is present with tip in the stomach and side-port in the distal esophagus, suggest advancement by about 5 cm. at 0756 Reported and signed by: Adwoa Rodriguez MD Electronically Signed: Adwoa Rodriguez MD at 7:55 EDT Tel , Service support , Abdomen CT 05/22/19 09:07 IMPRESSION: Small bowel obstruction with the transition point in the right lower quadrant. The oral contrast has progressed into the mid small bowel, but not beyond the transition point. A follow-up examination can be considered to assess for further passage of the contrast. Thickened loops of small bowel in right lower quadrant, consistent with enteritis. Moderate amount of free fluid. No free air. No fluid collection identified on this noncontrast study. Electronically Signed: Augie Perez, at 13:00 EDT Tel , Service support , KUB X-Ray 05/22/19 09:15 IMPRESSION: 1. NG tube advanced into the gastric fundus. 2. Continued small bowel dilatation unchanged from the prior exam. Electronically Signed: Omkar Estrada DO at 10:16 EDT Tel [phone], Service support , Chest X-Ray 05/22/19 17:00 IMPRESSION: Endotracheal tube is slightly deep, 1 cm above the mitzi could be pulled back 1.5 cm. The NG tube tip is in the stomach. Electronically Signed: Francisca Lozano MD at 17:30 EDT Tel , Service support , Assessment/Plan Active and Suspected Problems Small bowel obstruction (Acute) Dehydration (Acute) MERCEDES (acute kidney injury) (Acute) Hyponatremia (Acute) Hyperphosphatemia (Acute) RECOMMENDATIONS: 1. Continue supplemental IV fluid hydration. 2. Transition from propofol to Precedex to assist with weaning from mechanical ventilatory support. 3. Continue routine postoperative care per general surgery recommendations. 4. Start sliding scale insulin coverage every 6 hours. 5. Continue appropriate ICU prophylaxis IMPRESSIONS: 1. Small bowel obstruction, now POD #1 s/p exploratory laparotomy, lysis of adhesions and small bowel enterectomy Continue routine postoperative care per general surgery recommendations. Patient is currently receiving fentanyl for pain. 2. Acute respiratory failure The patient had to be reintubated after her initial trial of extubation following surgery, which was likely the consequence of the residual effects of general anesthesia and subsequent central respiratory depression. No lung pathology was identified on chest x-ray. The patient's ventilator requirements are minimal this morning. Unfortunately, the patient did not pass her spontaneous awakening/breathing trial due to the development of a significant amount of anxiety. With this in mind, I am going to transition the patient from propofol to Precedex to assist with ventilator weaning. In addition, the patient was reintubated with a small endotracheal tube, which is also likely contributing. 3. Hypertension/hyperlipidemia/diabetes mellitus Complicates care, management, recovery and prognosis. Home medications currently on hold. Start sliding scale insulin coverage for now. TIME: 40 minutes of critical care time, independent of procedures, was spent addressing the patient's small bowel obstruction status post surgical intervention, respiratory failure, anxiety, review of all data and collaboration with the care team. ([id number]) Code Visit 9xxxx: [id number] Critical care first hour
[2019-05-23] MEDS: fentaNYL drip 100 ML 7.5 MCG IV (06:35)
[2019-05-23 06:40] LABS: Bedside Glucose 221 mg/dL (70-110)
--- NOTE | 2019-05-23 09:09 | PCM.PN.HOSP ---
Patient Problems: Active and Suspected Problems Small bowel obstruction (Acute) Dehydration (Acute) MERCEDES (acute kidney injury) (Acute) Hyponatremia (Acute) Hyperphosphatemia (Acute) Subjective: Had surgery yesterday and was unable to be extubated. Weaning trial today failed, she is currently awake intubated. With limited communication she seems to be doing comfortable and her pain is controlled but she does appear to be frustrated with the fact that she cannot get extubated yet Vitals/I&O's: Vital Signs Temp Pulse Resp BP Pulse Ox 98.6 F 114 H 17 151/53 H 99 05/23/19 04:00 05/23/19 07:00 05/23/19 07:00 05/23/19 07:00 05/23/19 07:00 Oxygen Delivery Method Mechanical Ventilator Weight: 125 lb 3.561 oz Body Mass Index (BMI) 22.8 Finger Stick Blood Glucose 187 Intake and Output for Last 24 Hours 05/21/19 05/22/19 05/23/19 23:59 23:59 23:59 Intake Total 4472.52 / 4472.52 1493.29 / 1493.29 Output Total 1545 / 1545 200 / 200 Balance 2927.52 / 2927.52 1293.29 / 1293.29 General: Alert, Cooperative, No apparent distress HEENT: Atraumatic, PERRLA, EOMI, Normocephalic Oral: Moist Mucosa Neck: Supple, No JVD Lungs: Clear to auscultation, Normal air movement, No rhonchi, No wheeze, No rales, Diminished Cardiovascular: Regular Rhythm, Normal S1, Normal S2, No murmurs, Tachycardic Abdomen: Soft, Non Tender, Non-Distended, No Hepato-splenomegaly Extremities: No edema, Capillary Refill Less than 3 Seconds Skin: No rashes, No breakdown, Incision - Dressing is CDI Neurological: Neuro grossly intact, Sensory exam intact to light touch and pain Psych/Mental Status: Normal Affect, Appropriate Laboratory Results 05/22/19 11:51: POC Glucose 180 H 05/22/19 14:07: POC Glucose 151 H 05/22/19 16:49: POC Glucose 211 H 05/22/19 17:14: Specimen Type ART, Sample Site R Radial, pH 7.33 L, Bicarbonate Actual 15.3 L, POC Total CO2 16, Base Excess -11 L, O2 Saturation 98, O2 % 30, ABG pCO2 29.3 L, ABG pO2 106 H, Binu Test POS, Respiration Rate 14, O2 Delivery Device Vent, Minute Volume 7.00, Vent Mode A-C, Tidal Volume 450, POC PEEP 5, Blood Gas Notified Whom DESTINY ANDRADE, Blood Gas Notified Time 1713 05/22/19 17:45: Hgb 12.5, Hct 39.2 05/22/19 17:45: Sodium 138, Potassium 4.5, Chloride 107, Carbon Dioxide 19.0 L, Anion Gap 12, BUN 40 H, Creatinine 1.02, Estim Creat Clear Calc 30.02, Est GFR (MDRD) Af Amer 67, Est GFR (MDRD) Non-Af 55 L, BUN/Creatinine Ratio 39.2 H, Glucose 234 H, Calcium 7.3 L 05/22/19 17:45: Total Creatine Kinase 57, Triglycerides 210 H 05/22/19 23:46: POC Glucose 250 H 05/23/19 06:33: POC Glucose 221 H 05/23/19 : Sodium 140, Potassium 3.8, Chloride 112 H, Carbon Dioxide 18.0 L, Anion Gap 10, BUN 32 H, Creatinine 0.94, Estim Creat Clear Calc 32.57, Est GFR (MDRD) Af Amer 73, Est GFR (MDRD) Non-Af 61, BUN/Creatinine Ratio 34.1 H, Glucose 257 H, Calcium 7.2 L, Phosphorus 2.5, Magnesium 2.1 05/23/19 : WBC 5.9, RBC 3.29 L, Hgb 9.9 L, Hct 30.7 L, MCV 93.3, MCH 30.1, MCHC 32.2, RDW Std Deviation 45.1 H, RDW Coeff of Alanna 13.2, Plt Count 248, MPV 9.5, Immature Gran % (Auto) 0.700, Neut % (Auto) 86.8 H, Lymph % (Auto) 4.9 L, [place] % (Auto) 6.9, Eos % (Auto) 0.0, Baso % (Auto) 0.7, Absolute Neuts (auto) 5.1, Absolute Lymphs (auto) 0.29 L, Nucleated RBC % 0, Differential Comment SCANNED 05/23/19 : Phosphorus Cancelled Current Medications Albuterol Sulfate (Ventolin Aerosols) 2.5 mg INHALATION Q2H PRN PRN PRN Reason: WHEEZING Chlorhexidine Gluconate () 1 each TOPICAL DAILY [facility] Last Admin: 05/23/19 02:36 Dose: 1 each Documented by: Chlorhexidine Gluconate () 15 ml PO BID [facility] Last Admin: 05/22/19 21:40 Dose: 15 ml Documented by: Dextrose (D50w Syringe) 0 gm IV X1 PRN; Protocol PRN Reason: Hypoglycemia Glucagon () 1 mg IM .X1 PRN PRN Reason: Hypoglycemia Heparin Sodium (Porcine) (Heparin Na) 5,000 unit SC Q8 [facility] Last Admin: 05/23/19 05:49 Dose: 5,000 unit Documented by: Hydralazine HCl (Apresoline Iv) 10 mg IV Q4H PRN PRN PRN Reason: sys>150 DIAST>80 Sodium Chloride () 1,000 mls @ 150 mls/hr IV .Q6H40M [facility] Last Infusion: 05/23/19 08:02 Dose: 150 mls/hr Documented by: Famotidine 20 mg/ Sodium (Chloride) 10 mls @ 300 mls/hr IV Q12 [facility] Last Infusion: 05/22/19 21:52 Dose: Infused Documented by: Fentanyl () 100 mls @ 2.5 mls/hr IV UD [facility]; Protocol Last Titration: 05/23/19 08:45 Dose: 125 mcg/hr, 12.5 mls/hr Documented by: Sodium Chloride () 250 mls @ 15 mls/hr IV .[id number] PRN PRN Reason: SALINE FLUSH Dexmedetomidine HCl 400 mcg/ (Sodium Chloride) 100 mls @ 7.1 mls/hr CONT INF .Q14H6M [facility]; Protocol Last Titration: 05/23/19 08:45 Dose: 0.7 mcg/kg/hr, 9.9 mls/hr Documented by: Insulin Human Lispro (Humalog Kwikpen (Bkc)) 0 unit SC Q6 [facility]; Protocol Last Admin: 05/23/19 06:37 Dose: 2 u Documented by: Latanoprost (Xalatan Opthalmic) 1 drop EACH EYE QHS [facility] Last Admin: 05/22/19 21:44 Dose: 1 drop Documented by: Ondansetron HCl (Zofran) 4 mg IV Q8H PRN PRN PRN Reason: NAUSEA/VOMITING Promethazine HCl (Phenergan) 6.25 mg IV Q6H PRN PRN PRN Reason: NAUSEA/VOMITING Sodium Chloride () 10 - 40 ml IV UD PRN PRN Reason: SALINE FLUSH Last Admin: 05/23/19 04:06 Dose: 10 ml Documented by: Sodium Chloride () 10 - 40 ml IV UD PRN PRN Reason: SALINE FLUSH Medical Necessity - Tobacco Use Smoking Status: Former smoker Tobacco Use: Non-smoker Assessment/Plan All Active Problems Small bowel obstruction (Acute) Dehydration (Acute) MERCEDES (acute kidney injury) (Acute) Hyponatremia (Acute) Hyperphosphatemia (Acute) 1. Small bowel obstruction/hyponatremia and MERCEDES secondary to dehydration -She had an exploratory laparotomy on 05/22/2019 -Currently intubated in the ICU, failed extubation trial -We will increase sedation to make patient more comfortable in plan on trying to extubate tomorrow morning -Hyponatremia has resolved and her renal function is back to her baseline. -Continue with IV fluids -Appreciate surgical assistance -Continue with Pepcid since she is intubated with an NG tube in place 2. DM 2 -We will hold metformin and glimepiride -Tinea with sliding scale insulin and Accu-Cheks 3. HTN/HLD -Her blood pressures have been stable with systolics in the 130s to 150s -Hold her home medications until she can take p.o. -Tinea with hydralazine as needed 4. Glaucoma -Stable -Continue with latanoprost DVT: Heparin Code Visit Inpatient E&M: [id number] [facility] Hosp L2
[2019-05-23] MEDS: Chlorhexidine 15 ML PO ×2 (09:14→22:16)
--- NOTE | 2019-05-23 10:34 | PCM.PN.SRG ---
Patient Problems: Active and Suspected Problems Small bowel obstruction (Acute) Dehydration (Acute) MERCEDES (acute kidney injury) (Acute) Hyponatremia (Acute) Hyperphosphatemia (Acute) Subjective: patient unable to be extubated, unable to draw a large enough inspiratory volume, seems anxious denies abdominal pain when lying still, some pain to palpation though she communicates that it is less than prior to surgery daughter does state that patient has an anxious personality - Physical Exam General: Alert, Oriented x3 HEENT: Atraumatic Oral: Moist Mucosa, - - intubated Neck: Supple Lungs: Normal air movement Abdomen: Soft, - - dressing intact Vital Signs Temp Pulse Resp BP Pulse Ox 98.6 F 113 H 17 151/53 H 99 05/23/19 04:00 05/23/19 08:00 05/23/19 07:00 05/23/19 07:00 05/23/19 07:00 Oxygen Delivery Method Mechanical Ventilator Weight: 56.8 kg Body Mass Index (BMI) 22.8 Finger Stick Blood Glucose 187 Intake and Output for Last 24 Hours 05/21/19 05/22/19 05/23/19 23:59 23:59 23:59 Intake Total 4472.52 / 4472.52 1513.12 / 1513.12 Output Total 1545 / 1545 200 / 200 Balance 2927.52 / 2927.52 1313.12 / 1313.12 Laboratory Tests Past 24 Hrs 05/22/19 05/22/19 05/22/19 17:14 17:45 17:45 WBC RBC Hgb 12.5 Hct 39.2 MCV MCH MCHC RDW Std Deviation RDW Coeff of Alanna Plt Count MPV Immature Gran % (Auto) Neut % (Auto) Lymph % (Auto) [place] % (Auto) Eos % (Auto) Baso % (Auto) Absolute Neuts (auto) Absolute Lymphs (auto) Nucleated RBC % Differential Comment Specimen Type ART Sample Site R Radial pH 7.33 L Bicarbonate Actual 15.3 L POC Total CO2 16 Base Excess -11 L O2 Saturation 98 O2 % 30 ABG pCO2 29.3 L ABG pO2 106 H Binu Test POS Respiration Rate 14 O2 Delivery Device Vent Minute Volume 7.00 Vent Mode A-C Tidal Volume 450 POC PEEP 5 Blood Gas Notified Whom HOSP Blood Gas Notified Time 1713 Sodium 138 Potassium 4.5 Chloride 107 Carbon Dioxide 19.0 L Anion Gap 12 BUN 40 H Creatinine 1.02 Estim Creat Clear Calc 30.02 Est GFR (MDRD) Af Amer 67 Est GFR (MDRD) Non-Af 55 L BUN/Creatinine Ratio 39.2 H Glucose 234 H Calcium 7.3 L Phosphorus Magnesium Total Creatine Kinase Triglycerides 05/22/19 05/23/19 05/23/19 17:45 Unknown Unknown WBC 5.9 RBC 3.29 L Hgb 9.9 L Hct 30.7 L MCV 93.3 MCH 30.1 MCHC 32.2 RDW Std Deviation 45.1 H RDW Coeff of Alanna 13.2 Plt Count 248 MPV 9.5 Immature Gran % (Auto) 0.700 Neut % (Auto) 86.8 H Lymph % (Auto) 4.9 L [place] % (Auto) 6.9 Eos % (Auto) 0.0 Baso % (Auto) 0.7 Absolute Neuts (auto) 5.1 Absolute Lymphs (auto) 0.29 L Nucleated RBC % 0 Differential Comment SCANNED Specimen Type Sample Site pH Bicarbonate Actual POC Total CO2 Base Excess O2 Saturation O2 % ABG pCO2 ABG pO2 Binu Test Respiration Rate O2 Delivery Device Minute Volume Vent Mode Tidal Volume POC PEEP Blood Gas Notified Whom Blood Gas Notified Time Sodium 140 Potassium 3.8 Chloride 112 H Carbon Dioxide 18.0 L Anion Gap 10 BUN 32 H Creatinine 0.94 Estim Creat Clear Calc 32.57 Est GFR (MDRD) Af Amer 73 Est GFR (MDRD) Non-Af 61 BUN/Creatinine Ratio 34.1 H Glucose 257 H Calcium 7.2 L Phosphorus 2.5 Magnesium 2.1 Total Creatine Kinase 57 Triglycerides 210 H 05/23/19 Unknown WBC RBC Hgb Hct MCV MCH MCHC RDW Std Deviation RDW Coeff of Alanna Plt Count MPV Immature Gran % (Auto) Neut % (Auto) Lymph % (Auto) [place] % (Auto) Eos % (Auto) Baso % (Auto) Absolute Neuts (auto) Absolute Lymphs (auto) Nucleated RBC % Differential Comment Specimen Type Sample Site pH Bicarbonate Actual POC Total CO2 Base Excess O2 Saturation O2 % ABG pCO2 ABG pO2 Binu Test Respiration Rate O2 Delivery Device Minute Volume Vent Mode Tidal Volume POC PEEP Blood Gas Notified Whom Blood Gas Notified Time Sodium Potassium Chloride Carbon Dioxide Anion Gap BUN Creatinine Estim Creat Clear Calc Est GFR (MDRD) Af Amer Est GFR (MDRD) Non-Af BUN/Creatinine Ratio Glucose Calcium Phosphorus Cancelled Magnesium Total Creatine Kinase Triglycerides POC Glucose 05/23/19 05/22/19 05/22/19 06:33 23:46 16:49 POC Glucose 221 H 250 H 211 H 05/22/19 05/22/19 14:07 11:51 POC Glucose 151 H 180 H Medical Necessity - Tobacco Use Smoking Status: Former smoker Tobacco Use: Non-smoker Assessment/Plan All Active Problems Small bowel obstruction (Acute) Dehydration (Acute) MERCEDES (acute kidney injury) (Acute) Hyponatremia (Acute) Hyperphosphatemia (Acute) POD#1 s/p small bowel resection for complete bowel obstruction due to adhesions Plan: continue mechanical ventilation as per calculating machine operator and hospitalist recommendations. I will order KUB tomorrow am UO has improved this morning, patient had rec'd IV bolus last night can consider po feedings once patient is extubated
[2019-05-23 14:06] LABS: Bedside Glucose 176 mg/dL (70-110)
[2019-05-23] MEDS: fentaNYL drip 100 ML 12.5 MCG IV (15:54)
[2019-05-23 18:11] LABS: Bedside Glucose 161 mg/dL (70-110)
[2019-05-23] MEDS: Latanoprost 0.005% 1 Bottle 1 DRP EACH EYE (22:17)
[2019-05-24] VITALS (41 sets, daily range): BP systolic 110–171; BP diastolic 24–69; PULSE 69–92; RESP 10–29; TEMP 36.1–37; O2SAT 92–100
[2019-05-24] MEDS: fentaNYL drip 100 ML 12.5 MCG IV ×2 (00:16→11:07)
[2019-05-24 00:56] LABS: Bedside Glucose 146 mg/dL (70-110)
[2019-05-24] MEDS: hydrALAZINE 20 MG/ML Vial 10 MG IV (01:18)
[2019-05-24] MEDS: 0.9% Normal Saline 1,000 ML 150 ML IV (02:24)
[2019-05-24] MEDS: 0.9% NaCl Peripheral Flush Adult/Peds IV ×3 (02:24→21:25)
[2019-05-24] MEDS: CHLORHEXIDINE GLUC 2% CLOTH 1 EACH TOWELETTE TOPICAL (03:08)
[2019-05-24 04:57] LABS: Absolute Lymphocyte Count 0.85 X10^3/uL (0.83-4.51); Basophil# 0.01 X10^3/uL; Basophil% 0.2 % (0-1); Eosinophil# 0.01 X10^3/uL; Eosinophils% 0.2 % (0-5); Hematocrit 27.7 % (37-47); Hemoglobin 8.8 g/dL (12.0-15.0); Lymphocyte # 0.85 X10^3/ul (4.0); Mean Corp Hgb Conc 31.8 g/dL (32-36); Mean Corpuscular Hgb 29.9 pg (27.0-32.0); Mean Corpuscular Volume 94.2 fL (81-99); Mean Platelet Vol. 9.7 fl (6.2-12.0); Monocyte# 0.54 X10^3/uL; Monocyte% 8.2 % (0-10); NRBC Flagged by Analyzer 0 % (0-5); Neutrophil # 5.03 X10^3/uL (2.7-7.7); Neutrophil % 76.6 % (47-70); POSITIVE MORPHOLOGY YES; Platelet Count 209 K/mm3 (150-450); RBC Distribution Width CV 13.4 % (11.6-14.6); RBC Distribution Width SD 46.4 fl (35.1-43.9); Red Blood Count 2.94 M/mm3 (4.2-5.4); White Blood Count 6.6 K/mm3 (4.4-11.0)
[2019-05-24 04:59] LABS: Differential Indicated SCAN CRITERIA MET
[2019-05-24 05:09] LABS: Anion Gap 10 (5-15); BUN 19 mg/dL (7-18); BUN/Creat Ratio 27.9 RATIO (10-20); Calcium,Total 7.5 mg/dL (8.5-10.1); Chloride 115 mmol/L (98-107); Creatinine, Serum 0.68 mg/dL (0.55-1.02); EST Glomerular Filtration Rate 88 mL/min (>60); Est Glom Filt Rate - Afr Amer 106 mL/min (>60); Estimated Creatinine Clearance 30.62 ml/min; Glucose 152 mg/dL (74-106); Potassium 3.9 mmol/L (3.5-5.1); Sodium Level 141 mmol/L (136-145)
[2019-05-24 05:40] LABS: Bedside Glucose 134 mg/dL (70-110)
[2019-05-24] MEDS: Heparin Injection (Vial) 5,000 UNIT/ML VIAL 5000 UNIT SC ×3 (05:48→21:18)
[2019-05-24 07:02] LABS: Differential Comment SCANNED
[2019-05-24 07:05] LABS: Base Excess -11 mmol/L (-2 to +2); Bicarbonate 13.6 mmol/L (22-26); Blood Gas Specimen Type ART; FI02 25; Mode A-C; O2 Delivery Device Vent; PEEP 5; PO2 114 mmHG (75-100); RR 14; SITE R Radial; SO2 99 % (95-99); Time Given 657; Total Carbon Dioxide 14 mmol/L; Vt 450; pCO2 22.6 mmHg (35-45); pH 7.39 (7.35-7.45)
--- NOTE | 2019-05-24 07:18 | PCM.PN.INT ---
Subjective: Patient did okay overnight. Attempts at spontaneous breathing trial this morning were unsuccessful secondary to tachypnea and hypertension. Patient has continued to breathe with the vent while on sedation. Patient was sedated on my evaluation and unable to answer any questions. General: Well developed, Well nourished, Lethargic, - - Pale in appearance. Breathing with the ventilator. RASS -2. HEENT: Atraumatic, PERRLA, EOMI, Normocephalic, - - No scleral icterus or injection noted. Oral: Moist Mucosa, No Gingival or Mucosal Lesions/ Ulcerations Neck: Supple, No JVD, No Nodes, Trachea Midline Lungs: No wheeze, No rales, Diminished, Rhonchi, - - Symmetric expansion. No dullness to percussion. Cardiovascular: Regular rate, Regular Rhythm, Normal S1, Normal S2, No murmurs, No rub noted, No Gallop Abdomen: Soft, Bowel Sounds Not Present, Distended - Slightly, Tender Extremities: No clubbing, No cyanosis, Edema - 2+ Skin: No rashes, No breakdown, Incision - Clean, dry and intact Musculoskeletal: No Tenderness to Palpation of Joints or Extremities Lymphatic: No Cervical, Supraclavicular, or Inguinal Adenopathy Neurological: Cranial nerves II-XII grossly intact, Neuro grossly intact, Motor Exam 5/5 strength throughout Psych/Mental Status: Flat Affect Vital Signs Temp Pulse Resp BP Pulse Ox 36.4 C L 76 14 152/41 H 99 05/24/19 04:00 05/24/19 07:00 05/24/19 07:00 05/24/19 07:00 05/24/19 07:00 Oxygen Delivery Method Room Air Weight: 59.7 kg Body Mass Index (BMI) 22.8 Finger Stick Blood Glucose 187 Intake and Output for Last 24 Hours 05/22/19 05/23/19 05/24/19 23:59 23:59 23:59 Intake Total 4472.52 / 4472.52 3900.43 / 4177.81 1464.75 / 1464.75 Output Total 1545 / 1545 750 / 1100 800 / 800 Balance 2927.52 / 2927.52 3150.43 / 3077.81 664.75 / 664.75 Labs (Last 48 Hours) 05/22/19 05/22/19 05/22/19 04:44 07:38 11:51 WBC RBC Hgb Hct MCV MCH MCHC RDW Std Deviation RDW Coeff of Alanna Plt Count MPV Immature Gran % (Auto) Neut % (Auto) Lymph % (Auto) [place] % (Auto) Eos % (Auto) Baso % (Auto) Absolute Neuts (auto) Absolute Lymphs (auto) Nucleated RBC % Differential Comment Specimen Type Sample Site pH Bicarbonate Actual POC Total CO2 Base Excess O2 Saturation O2 % ABG pCO2 ABG pO2 Binu Test Respiration Rate O2 Delivery Device Minute Volume Vent Mode Tidal Volume POC PEEP Blood Gas Notified Whom Blood Gas Notified Time Sodium Potassium Chloride Carbon Dioxide Anion Gap BUN Creatinine Estim Creat Clear Calc Est GFR (MDRD) Af Amer Est GFR (MDRD) Non-Af BUN/Creatinine Ratio Glucose Calcium Phosphorus 5.3 H Magnesium 1.6 Total Creatine Kinase Triglycerides POC Glucose 197 H 180 H 05/22/19 05/22/19 05/22/19 14:07 16:49 17:14 WBC RBC Hgb Hct MCV MCH MCHC RDW Std Deviation RDW Coeff of Alanna Plt Count MPV Immature Gran % (Auto) Neut % (Auto) Lymph % (Auto) [place] % (Auto) Eos % (Auto) Baso % (Auto) Absolute Neuts (auto) Absolute Lymphs (auto) Nucleated RBC % Differential Comment Specimen Type ART Sample Site R Radial pH 7.33 L Bicarbonate Actual 15.3 L POC Total CO2 16 Base Excess -11 L O2 Saturation 98 O2 % 30 ABG pCO2 29.3 L ABG pO2 106 H Binu Test POS Respiration Rate 14 O2 Delivery Device Vent Minute Volume 7.00 Vent Mode A-C Tidal Volume 450 POC PEEP 5 Blood Gas Notified Whom [facility] Blood Gas Notified Time 1713 Sodium Potassium Chloride Carbon Dioxide Anion Gap BUN Creatinine Estim Creat Clear Calc Est GFR (MDRD) Af Amer Est GFR (MDRD) Non-Af BUN/Creatinine Ratio Glucose Calcium Phosphorus Magnesium Total Creatine Kinase Triglycerides POC Glucose 151 H 211 H 05/22/19 05/22/19 05/22/19 17:45 17:45 17:45 WBC RBC Hgb 12.5 Hct 39.2 MCV MCH MCHC RDW Std Deviation RDW Coeff of Alanna Plt Count MPV Immature Gran % (Auto) Neut % (Auto) Lymph % (Auto) [place] % (Auto) Eos % (Auto) Baso % (Auto) Absolute Neuts (auto) Absolute Lymphs (auto) Nucleated RBC % Differential Comment Specimen Type Sample Site pH Bicarbonate Actual POC Total CO2 Base Excess O2 Saturation O2 % ABG pCO2 ABG pO2 Binu Test Respiration Rate O2 Delivery Device Minute Volume Vent Mode Tidal Volume POC PEEP Blood Gas Notified Whom Blood Gas Notified Time Sodium 138 Potassium 4.5 Chloride 107 Carbon Dioxide 19.0 L Anion Gap 12 BUN 40 H Creatinine 1.02 Estim Creat Clear Calc 30.02 Est GFR (MDRD) Af Amer 67 Est GFR (MDRD) Non-Af 55 L BUN/Creatinine Ratio 39.2 H Glucose 234 H Calcium 7.3 L Phosphorus Magnesium Total Creatine Kinase 57 Triglycerides 210 H POC Glucose 05/22/19 05/23/19 05/23/19 23:46 06:33 13:53 WBC RBC Hgb Hct MCV MCH MCHC RDW Std Deviation RDW Coeff of Alanna Plt Count MPV Immature Gran % (Auto) Neut % (Auto) Lymph % (Auto) [place] % (Auto) Eos % (Auto) Baso % (Auto) Absolute Neuts (auto) Absolute Lymphs (auto) Nucleated RBC % Differential Comment Specimen Type Sample Site pH Bicarbonate Actual POC Total CO2 Base Excess O2 Saturation O2 % ABG pCO2 ABG pO2 Binu Test Respiration Rate O2 Delivery Device Minute Volume Vent Mode Tidal Volume POC PEEP Blood Gas Notified Whom Blood Gas Notified Time Sodium Potassium Chloride Carbon Dioxide Anion Gap BUN Creatinine Estim Creat Clear Calc Est GFR (MDRD) Af Amer Est GFR (MDRD) Non-Af BUN/Creatinine Ratio Glucose Calcium Phosphorus Magnesium Total Creatine Kinase Triglycerides POC Glucose 250 H 221 H 176 H 05/23/19 05/23/19 05/23/19 18:04 Unknown Unknown WBC 5.9 RBC 3.29 L Hgb 9.9 L Hct 30.7 L MCV 93.3 MCH 30.1 MCHC 32.2 RDW Std Deviation 45.1 H RDW Coeff of Alanna 13.2 Plt Count 248 MPV 9.5 Immature Gran % (Auto) 0.700 Neut % (Auto) 86.8 H Lymph % (Auto) 4.9 L [place] % (Auto) 6.9 Eos % (Auto) 0.0 Baso % (Auto) 0.7 Absolute Neuts (auto) 5.1 Absolute Lymphs (auto) 0.29 L Nucleated RBC % 0 Differential Comment SCANNED Specimen Type Sample Site pH Bicarbonate Actual POC Total CO2 Base Excess O2 Saturation O2 % ABG pCO2 ABG pO2 Binu Test Respiration Rate O2 Delivery Device Minute Volume Vent Mode Tidal Volume POC PEEP Blood Gas Notified Whom Blood Gas Notified Time Sodium 140 Potassium 3.8 Chloride 112 H Carbon Dioxide 18.0 L Anion Gap 10 BUN 32 H Creatinine 0.94 Estim Creat Clear Calc 32.57 Est GFR (MDRD) Af Amer 73 Est GFR (MDRD) Non-Af 61 BUN/Creatinine Ratio 34.1 H Glucose 257 H Calcium 7.2 L Phosphorus 2.5 Magnesium 2.1 Total Creatine Kinase Triglycerides POC Glucose 161 H 05/23/19 05/24/19 05/24/19 Unknown 00:48 04:45 WBC 6.6 RBC 2.94 L Hgb 8.8 L Hct 27.7 L MCV 94.2 MCH 29.9 MCHC 31.8 L RDW Std Deviation 46.4 H RDW Coeff of Alanna 13.4 Plt Count 209 MPV 9.7 Immature Gran % (Auto) 1.800 H Neut % (Auto) 76.6 H Lymph % (Auto) 13.0 L [place] % (Auto) 8.2 Eos % (Auto) 0.2 Baso % (Auto) 0.2 Absolute Neuts (auto) 5.0 Absolute Lymphs (auto) 0.85 Nucleated RBC % 0 Differential Comment SCANNED Specimen Type Sample Site pH Bicarbonate Actual POC Total CO2 Base Excess O2 Saturation O2 % ABG pCO2 ABG pO2 Binu Test Respiration Rate O2 Delivery Device Minute Volume Vent Mode Tidal Volume POC PEEP Blood Gas Notified Whom Blood Gas Notified Time Sodium Potassium Chloride Carbon Dioxide Anion Gap BUN Creatinine Estim Creat Clear Calc Est GFR (MDRD) Af Amer Est GFR (MDRD) Non-Af BUN/Creatinine Ratio Glucose Calcium Phosphorus Cancelled Magnesium Total Creatine Kinase Triglycerides POC Glucose 146 H 05/24/19 05/24/19 05/24/19 04:45 05:36 06:59 WBC RBC Hgb Hct MCV MCH MCHC RDW Std Deviation RDW Coeff of Alanna Plt Count MPV Immature Gran % (Auto) Neut % (Auto) Lymph % (Auto) [place] % (Auto) Eos % (Auto) Baso % (Auto) Absolute Neuts (auto) Absolute Lymphs (auto) Nucleated RBC % Differential Comment Specimen Type ART Sample Site R Radial pH 7.39 Bicarbonate Actual 13.6 L POC Total CO2 14 Base Excess -11 L O2 Saturation 99 O2 % 25 ABG pCO2 22.6 L ABG pO2 114 H Binu Test NA Respiration Rate 14 O2 Delivery Device Vent Minute Volume Vent Mode A-C Tidal Volume 450 POC PEEP 5 Blood Gas Notified Whom ICU MD Blood Gas Notified Time 657 Sodium 141 Potassium 3.9 Chloride 115 H Carbon Dioxide 16.0 L Anion Gap 10 BUN 19 H Creatinine 0.68 Estim Creat Clear Calc 30.62 Est GFR (MDRD) Af Amer 106 Est GFR (MDRD) Non-Af 88 BUN/Creatinine Ratio 27.9 H Glucose 152 H Calcium 7.5 L Phosphorus Magnesium Total Creatine Kinase Triglycerides POC Glucose 134 H Medical Necessity - Tobacco Use Smoking Status: Former smoker Tobacco Use: Non-smoker Assessment/Plan All Active Problems Small bowel obstruction (Acute) Dehydration (Acute) MERCEDES (acute kidney injury) (Acute) Hyponatremia (Acute) Hyperphosphatemia (Acute) RECOMMENDATIONS: 1. Decrease supplemental IV fluid hydration. 2. Continue Precedex to assist with weaning from mechanical ventilatory support. 3. Continue routine postoperative care per general surgery recommendations. 4. Start sliding scale insulin coverage every 6 hours. 5. Continue appropriate ICU prophylaxis 6. Decreased minute ventilation on ventilator IMPRESSIONS: 1. Small bowel obstruction, now POD #2 s/p exploratory laparotomy, lysis of adhesions and small bowel enterectomy Continue routine postoperative care per general surgery recommendations. Patient is currently receiving fentanyl for pain. Patient does appear to have a significant metabolic acidosis. Unclear if this is secondary from overventilation versus possible lactic acidosis. Abdominal exam is relatively benign at this time. Await surgical opinion. May check lactate later in the day if tachypnea persists. 2. Acute respiratory failure Patient transition to Precedex therapy yesterday, but was unable to tolerate a spontaneous breathing trial this morning. Patient does have a small endotracheal tube, which complicates liberation. Patient does not have any acute pathology noted on chest x-ray. ABG showed a metabolic acidosis with adequate compensation. Will decrease minute ventilation to be sure this was not a respiratory driven loss of bicarb. Other differential would be a lactic acidosis given patient's surgery. 3. Hypertension/hyperlipidemia/diabetes mellitus Complicates care, management, recovery and prognosis. Home medications currently on hold. Continue sliding scale insulin coverage for now. TIME: 35 minutes of critical care time, independent of procedures, was spent addressing the patient's small bowel obstruction status post surgical intervention, respiratory failure, anxiety, review of all data and collaboration with the care team. (5:45 AM to 6:45 AM) Code Visit Procedures: 09042 Critial Care 1st Hr
--- NOTE | 2019-05-24 08:08 | PN_ITS ---
Patient Problems: Active and Suspected Problems Small bowel obstruction (Acute) Dehydration (Acute) MERCEDES (acute kidney injury) (Acute) Hyponatremia (Acute) Hyperphosphatemia (Acute) Subjective: Intubated and sedated, not easily arousable today Vitals/I&O's: Vital Signs Temp Pulse Resp BP Pulse Ox 97.6 F L 82 10 L 152/41 H 98 05/24/19 04:00 05/24/19 07:02 05/24/19 07:02 05/24/19 07:00 05/24/19 07:02 Oxygen Delivery Method Room Air Weight: 131 lb 9.855 oz Body Mass Index (BMI) 22.8 Finger Stick Blood Glucose 187 Intake and Output for Last 24 Hours 05/22/19 05/23/19 05/24/19 23:59 23:59 23:59 Intake Total 4472.52 / 4472.52 3900.43 / 4177.81 1464.75 / 1464.75 Output Total 1545 / 1545 750 / 1100 800 / 800 Balance 2927.52 / 2927.52 3150.43 / 3077.81 664.75 / 664.75 General: Intubated and sedated, no apparent distress HEENT: Atraumatic, PERRLA, EOMI, Normocephalic Oral: Moist Mucosa Neck: Supple, No JVD Lungs: Normal air movement, coarse breath sounds bilaterally, Diminished Cardiovascular: Regular Rhythm, Normal S1, Normal S2, No murmurs, Tachycardic Abdomen: Soft, Non Tender, Non-Distended, No Hepato-splenomegaly Extremities: No edema, Capillary Refill Less than 3 Seconds Skin: No rashes, No breakdown, Incision - Dressing is CDI Neurological: Intubated and sedated Psych/Mental Status: Intubated and sedated Laboratory Results 05/23/19 13:53: POC Glucose 176 H 05/23/19 18:04: POC Glucose 161 H 05/24/19 00:48: POC Glucose 146 H 05/24/19 04:45: WBC 6.6, RBC 2.94 L, Hgb 8.8 L, Hct 27.7 L, MCV 94.2, MCH 29.9, MCHC 31.8 L, RDW Std Deviation 46.4 H, RDW Coeff of Alanna 13.4, Plt Count 209, MPV 9.7, Immature Gran % (Auto) 1.800 H, Neut % (Auto) 76.6 H, Lymph % (Auto) 13.0 L , [place] % (Auto) 8.2, Eos % (Auto) 0.2, Baso % (Auto) 0.2, Absolute Neuts (auto) 5.0, Absolute Lymphs (auto) 0.85, Nucleated RBC % 0, Differential Comment SCANNED 05/24/19 04:45: Sodium 141, Potassium 3.9, Chloride 115 H, Carbon Dioxide 16.0 L , Anion Gap 10, BUN 19 H, Creatinine 0.68, Estim Creat Clear Calc 30.62, Est GFR (MDRD) Af Amer 106, Est GFR (MDRD) Non-Af 88, BUN/Creatinine Ratio 27.9 H, Glucose 152 H, Calcium 7.5 L 05/24/19 05:36: POC Glucose 134 H 05/24/19 06:59: Specimen Type ART, Sample Site R Radial, pH 7.39, Bicarbonate Actual 13.6 L, POC Total CO2 14, Base Excess -11 L, O2 Saturation 99, O2 % 25, ABG pCO2 22.6 L, ABG pO2 114 H, Binu Test NA, Respiration Rate 14, O2 Delivery Device Vent, Vent Mode A-C, Tidal Volume 450, POC PEEP 5, Blood Gas Notified Whom ICU MD, Blood Gas Notified Time 657 Current Medications Albuterol Sulfate (Ventolin Aerosols) 2.5 mg INHALATION Q2H PRN PRN PRN Reason: WHEEZING Chlorhexidine Gluconate () 1 each TOPICAL DAILY [facility] Last Admin: 05/24/19 03:08 Dose: 1 each Documented by: Chlorhexidine Gluconate () 15 ml PO BID [facility] Last Admin: 05/23/19 22:16 Dose: 15 ml Documented by: Dextrose (D50w Syringe) 0 gm IV X1 PRN; Protocol PRN Reason: Hypoglycemia Glucagon () 1 mg IM .X1 PRN PRN Reason: Hypoglycemia Heparin Sodium (Porcine) (Heparin Na) 5,000 unit SC Q8 [facility] Last Admin: 05/24/19 05:48 Dose: 5,000 unit Documented by: Hydralazine HCl (Apresoline Iv) 10 mg IV Q4H PRN PRN PRN Reason: sys>150 DIAST>80 Last Admin: 05/24/19 01:18 Dose: 10 mg Documented by: Sodium Chloride () 1,000 mls @ 75 mls/hr IV .[id number] JERILYN Last Infusion: 05/24/19 07:02 Dose: 75 mls/hr Documented by: Famotidine 20 mg/ Sodium (Chloride) 10 mls @ 300 mls/hr IV Q12 JERILYN Last Infusion: 05/23/19 22:22 Dose: Infused Documented by: Fentanyl () 100 mls @ 2.5 mls/hr IV UD JERILYN; Protocol Last Titration: 05/24/19 07:03 Dose: 125 mcg/hr, 12.5 mls/hr Documented by: Sodium Chloride () 250 mls @ 15 mls/hr IV .[id number] PRN PRN Reason: SALINE FLUSH Dexmedetomidine HCl 400 mcg/ (Sodium Chloride) 100 mls @ 7.463 mls/hr CONT INF .[id number] JERILYN; Protocol Last Titration: 05/24/19 07:04 Dose: 0.6 mcg/kg/hr, 8.5 mls/hr Documented by: Insulin Human Lispro (Humalog Kwikpen (Bkc)) 0 unit SC Q6 JERILYN; Protocol Last Admin: 05/24/19 05:37 Dose: Not Given Documented by: Latanoprost (Xalatan Opthalmic) 1 drop EACH EYE QHS JERILYN Last Admin: 05/23/19 22:17 Dose: 1 drop Documented by: Ondansetron HCl (Zofran) 4 mg IV Q8H PRN PRN PRN Reason: NAUSEA/VOMITING Promethazine HCl (Phenergan) 6.25 mg IV Q6H PRN PRN PRN Reason: NAUSEA/VOMITING Sodium Chloride () 10 - 40 ml IV UD PRN PRN Reason: SALINE FLUSH Last Admin: 05/24/19 02:24 Dose: 10 ml Documented by: Sodium Chloride () 10 - 40 ml IV UD PRN PRN Reason: SALINE FLUSH Medical Necessity - Tobacco Use Smoking Status: Former smoker Tobacco Use: Non-smoker Assessment/Plan All Active Problems Small bowel obstruction (Acute) Dehydration (Acute) MERCEDES (acute kidney injury) (Acute) Hyponatremia (Acute) Hyperphosphatemia (Acute) 1. Small bowel obstruction/hyponatremia and MERCEDES secondary to dehydration -She had an exploratory laparotomy on 05/22/2019 -Currently intubated in the ICU, failed extubation trial -We will increase sedation to make patient more comfortable and plan on trying to extubate tomorrow morning -Hyponatremia has resolved and her renal function is back to her baseline. -Continue with IV fluids -Appreciate surgical assistance -Continue with Pepcid since she is intubated with an NG tube in place 2. DM 2 -We will hold metformin and glimepiride -Continue with sliding scale insulin and Accu-Cheks 3. HTN/HLD -Her blood pressures have been stable with systolics in the 130s to 150s -Hold her home medications until she can take p.o. -Continue with hydralazine as needed 4. Glaucoma -Stable -Continue with latanoprost DVT: Heparin Code Visit Inpatient E&M: 81952 Subs Hosp L2
--- NOTE | 2019-05-24 08:24 | PN.SURG_ITS ---
Patient Problems: Active and Suspected Problems Small bowel obstruction (Acute) Dehydration (Acute) MERCEDES (acute kidney injury) (Acute) Hyponatremia (Acute) Hyperphosphatemia (Acute) Subjective: Patient is sleepy due to sedation, responds to stimuli - Physical Exam Abdomen: Soft - incision dry and intact, no surrounding erythema Vital Signs Temp Pulse Resp BP Pulse Ox 97.6 F L 82 10 L 152/41 H 98 05/24/19 04:00 05/24/19 07:02 05/24/19 07:02 05/24/19 07:00 05/24/19 07:02 Oxygen Delivery Method Room Air Weight: 59.7 kg Body Mass Index (BMI) 22.8 Finger Stick Blood Glucose 187 Intake and Output for Last 24 Hours 05/22/19 05/23/19 05/24/19 23:59 23:59 23:59 Intake Total 4472.52 / 4472.52 3900.43 / 4177.81 1464.75 / 1464.75 Output Total 1545 / 1545 750 / 1100 800 / 800 Balance 2927.52 / 2927.52 3150.43 / 3077.81 664.75 / 664.75 Laboratory Tests Past 24 Hrs 05/24/19 05/24/19 05/24/19 04:45 04:45 06:59 WBC 6.6 RBC 2.94 L Hgb 8.8 L Hct 27.7 L MCV 94.2 MCH 29.9 MCHC 31.8 L RDW Std Deviation 46.4 H RDW Coeff of Alanna 13.4 Plt Count 209 MPV 9.7 Immature Gran % (Auto) 1.800 H Neut % (Auto) 76.6 H Lymph % (Auto) 13.0 L [place] % (Auto) 8.2 Eos % (Auto) 0.2 Baso % (Auto) 0.2 Absolute Neuts (auto) 5.0 Absolute Lymphs (auto) 0.85 Nucleated RBC % 0 Differential Comment SCANNED Specimen Type ART Sample Site R Radial pH 7.39 Bicarbonate Actual 13.6 L POC Total CO2 14 Base Excess -11 L O2 Saturation 99 O2 % 25 ABG pCO2 22.6 L ABG pO2 114 H Binu Test NA Respiration Rate 14 O2 Delivery Device Vent Vent Mode A-C Tidal Volume 450 POC PEEP 5 Blood Gas Notified Whom ICU Blood Gas Notified Time 657 Sodium 141 Potassium 3.9 Chloride 115 H Carbon Dioxide 16.0 L Anion Gap 10 BUN 19 H Creatinine 0.68 Estim Creat Clear Calc 30.62 Est GFR (MDRD) Af Amer 106 Est GFR (MDRD) Non-Af 88 BUN/Creatinine Ratio 27.9 H Glucose 152 H Calcium 7.5 L POC Glucose 05/24/19 05/24/19 05/23/19 05:36 00:48 18:04 POC Glucose 134 H 146 H 161 H 05/23/19 13:53 POC Glucose 176 H Medical Necessity - Tobacco Use Smoking Status: Former smoker Tobacco Use: Non-smoker Assessment/Plan All Active Problems Small bowel obstruction (Acute) Dehydration (Acute) MERCEDES (acute kidney injury) (Acute) Hyponatremia (Acute) Hyperphosphatemia (Acute) POD#2 s/p small bowel resection for complete bowel obstruction due to adhesions Plan: continue mechanical ventilation as per car unloader helper and hospitalist recommendations. concerning for increasing metabolic acidosis of unknown etiology - possible intraabdominal? - however, NG tube output has decreased, no increase in WBC, no elevated temperature, creatinine is improving, UO is adequate - these parameters are improving and less likely for intraabdominal process - will check lactic acid May need to consider hyperalimentation
[2019-05-24 09:28] LABS: Lactic Acid 0.6 mmol/L (0.4-2.0)
--- NOTE | 2019-05-24 10:25 | CASEMGMT ---
Case Management Progress Note: Patient Intubated during morning rounds, introduced seld and role to Dtr Aniyah Pelletier at bedside and aware would be back to discuss Care Coordination needs. CM back to bedside and Dtr not present, unable to complete assessment at this time. Leif Perez RNCM
[2019-05-24] MEDS: 0.9% Normal Saline 1,000 ML 75 ML IV ×2 (11:08→23:59)
[2019-05-24] MEDS: Chlorhexidine 15 ML PO ×2 (11:10→21:25)
[2019-05-24 11:41] LABS: Bedside Glucose 145 mg/dL (70-110)
--- NOTE | 2019-05-24 14:06 | CASEMGMT ---
RN CM Assessment Introduced role of RN CM to patient Fredi Pelletier at bedside.? Patient is currently intubated and unable to participate in assessment. Care providers, pharmacy, and demographics verified with patient Fredi Dill. 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 Admit Dx: SBO, MERCEDES, Dehydration, Hyponatremia Re-Admit: No Barriers/Issues: Lives with Dtr Aniyah who works PT for 5-6hrs/shift. States patient other 3 sons have not been present in patient life for approx 6years every since patient . 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 PCP: Claire Sharif Specialists: None Preferred [facility]acy: [facility] Insurance: [employer] A[employer], [employer] Benefit:?Yes ?LNOK: Dtr Aniyah Pelletier LW/HPOA: Yes- HPOA Dtr Aniyah Pelletier, aware not on file with [facility]. Living Arrangements:?Lives in a Ground Level apartment with Dtalivia Pelletier. 1 step to enter apartment. ADL?s: Independent with ambulation and ADLs Transportation: Dtr DME: [employer] HHC: None SNF: None Goal: Home with HHC vs SNF and TBD from how patient is progressing in hospital. List to SNF and HHC provided at bedside. Dtr denies any questions, concerns or issues with DC planning at this time. Aware CM remains available for any emerging needs. DC PLAN: TBD. BERTIN Mancia
[2019-05-24 19:06] LABS: Bedside Glucose 110 mg/dL (70-110)
[2019-05-24] MEDS: Latanoprost 0.005% 1 Bottle 1 DRP EACH EYE (21:18)
[2019-05-24] MEDS: fentaNYL drip 100 ML 10 MCG IV (23:08)
[2019-05-25] VITALS (40 sets, daily range): BP systolic 117–204; BP diastolic 28–106; PULSE 75–140; RESP 10–30; TEMP 36.2–37.3; O2SAT 92–98
[2019-05-25 00:11] LABS: Bedside Glucose 98 mg/dL (70-110)
[2019-05-25] MEDS: CHLORHEXIDINE GLUC 2% CLOTH 1 EACH TOWELETTE TOPICAL (02:48)
[2019-05-25] MEDS: TITRATION PARAMETER CHANGE 1 EACH IV (03:46)
[2019-05-25 04:13] LABS: Absolute Neutrophil Count 4.8 X10^3/uL (2.0-7.7); Basophil# 0.02 X10^3/uL; Basophil% 0.3 % (0-1); Eosinophil# 0.03 X10^3/uL; Eosinophils% 0.4 % (0-5); Hematocrit 28.2 % (37-47); Hemoglobin 8.6 g/dL (12.0-15.0); Lymphocyte % 16.4 % (19-41); Mean Corp Hgb Conc 30.5 g/dL (32-36); Mean Corpuscular Hgb 29.4 pg (27.0-32.0); Mean Corpuscular Volume 96.2 fL (81-99); Mean Platelet Vol. 9.7 fl (6.2-12.0); Monocyte# 0.58 X10^3/uL; Monocyte% 8.6 % (0-10); NRBC Flagged by Analyzer 0 % (0-5); Neutrophil # 4.84 X10^3/uL (2.7-7.7); Neutrophil % 72.2 % (47-70); POSITIVE MORPHOLOGY YES; Platelet Count 224 K/mm3 (150-450); RBC Distribution Width CV 13.3 % (11.6-14.6); RBC Distribution Width SD 47.9 fl (35.1-43.9); Red Blood Count 2.93 M/mm3 (4.2-5.4); White Blood Count 6.7 K/mm3 (4.4-11.0)
[2019-05-25 04:23] LABS: Anion Gap 8 (5-15); BUN 19 mg/dL (7-18); BUN/Creat Ratio 31.9 RATIO (10-20); Chloride 116 mmol/L (98-107); EST Glomerular Filtration Rate 102 mL/min (>60); Est Glom Filt Rate - Afr Amer 124 mL/min (>60); Estimated Creatinine Clearance 30.62 ml/min; Glucose 92 mg/dL (74-106); Potassium 3.8 mmol/L (3.5-5.1); Sodium Level 141 mmol/L (136-145)
[2019-05-25 04:29] LABS: Differential Indicated SCAN CRITERIA MET
[2019-05-25 05:09] LABS: Differential Comment SCANNED
[2019-05-25] MEDS: Heparin Injection (Vial) 5,000 UNIT/ML VIAL 5000 UNIT SC ×3 (05:34→21:14)
[2019-05-25 06:05] LABS: Bedside Glucose 82 mg/dL (70-110)
--- NOTE | 2019-05-25 06:11 | CPS ---
results read back to dr greenfield
[2019-05-25 06:16] LABS: Allen Test POS; Base Excess -15 mmol/L (-2 to +2); Bicarbonate 12.4 mmol/L (22-26); Blood Gas Specimen Type ART; FI02 25; Mode CPAP PS; O2 Delivery Device Vent; PEEP 5; PO2 88 mmHG (75-100); PS 5; SITE L Radial; SO2 95 % (95-99); Total Carbon Dioxide 13 mmol/L; pH 7.24 (7.35-7.45)
[2019-05-25 06:51] LABS: Lactic Acid 0.6 mmol/L (0.4-2.0)
[2019-05-25] MEDS: Sodium Bicarbonate 8.4% 50 ML Syringe 50 MEQ IV (06:58)
--- NOTE | 2019-05-25 07:00 | NURSING ---
Pt. extubated to 2L NC by respiratory therapy. NG removed. Pt. tolerated well.
--- NOTE | 2019-05-25 07:15 | PCM.PN.INT ---
Subjective: Patient did well overnight. No acute issues were reported. Patient did have some anxiety on initial spontaneous breathing trial, but calm down with reassurance from nursing. No significant endotracheal secretions reported. Blood pressure has been maintained. No fevers been reported. Objective: Patient was able to pass spontaneous breathing trial. ABG at the end showed a non-anion gap metabolic acidosis. Patient was given 1 amp of bicarb and extubated. Patient with some hoarse voice after extubation, but no stridor. General: Alert, Cooperative, No apparent distress, - - Follows commands. HEENT: Atraumatic, PERRLA, EOMI, Normocephalic, - - No scleral icterus or injection noted. NG has been removed. Oral: Moist Mucosa, No Gingival or Mucosal Lesions/ Ulcerations Neck: Supple, No JVD, No Nodes, Trachea Midline Lungs: No wheeze, No rales, Diminished, Rhonchi - Improved with cough, - - Symmetric expansion. Cardiovascular: Regular rate, Regular Rhythm, Normal S1, Normal S2, No murmurs, No rub noted, No Gallop Abdomen: Bowel Sounds Present, Soft, Non-Distended, Tender - No guarding or rebound reported Extremities: No clubbing, No cyanosis, Edema - 1+ Skin: Incision - Clean, dry and intact Musculoskeletal: No Tenderness to Palpation of Joints or Extremities Lymphatic: No Cervical, Supraclavicular, or Inguinal Adenopathy Neurological: Cranial nerves II-XII grossly intact, Neuro grossly intact, Motor Exam 5/5 strength throughout Psych/Mental Status: Anxious, Restless Vital Signs Temp Pulse Resp BP Pulse Ox 36.2 C L 95 16 155/30 H 97 05/25/19 04:00 05/25/19 06:18 05/25/19 06:18 05/25/19 06:00 05/25/19 06:18 Oxygen Delivery Method Mechanical Ventilator Weight: 61.3 kg Body Mass Index (BMI) 22.8 Finger Stick Blood Glucose 187 Intake and Output for Last 24 Hours 05/23/19 05/24/19 05/25/19 23:59 23:59 23:59 Intake Total 3900.43 / 4177.81 2976.76 / 2976.76 603.20 / 603.20 Output Total 750 / 1100 1545 / 1545 280 / 280 Balance 3150.43 / 3077.81 1431.76 / 1431.76 323.20 / 323.20 Labs (Last 48 Hours) 05/23/19 05/23/19 05/24/19 13:53 18:04 00:48 WBC RBC Hgb Hct MCV MCH MCHC RDW Std Deviation RDW Coeff of Alanna Plt Count MPV Immature Gran % (Auto) Neut % (Auto) Lymph % (Auto) [place] % (Auto) Eos % (Auto) Baso % (Auto) Absolute Neuts (auto) Absolute Lymphs (auto) Nucleated RBC % Differential Comment Specimen Type Sample Site pH Bicarbonate Actual POC Total CO2 Base Excess O2 Saturation O2 % ABG pCO2 ABG pO2 Binu Test Respiration Rate O2 Delivery Device Vent Mode Tidal Volume POC PEEP POC Pressure Suppt Blood Gas Notified Whom Blood Gas Notified Time Sodium Potassium Chloride Carbon Dioxide Anion Gap BUN Creatinine Estim Creat Clear Calc Est GFR (MDRD) Af Amer Est GFR (MDRD) Non-Af BUN/Creatinine Ratio Glucose Lactic Acid Calcium POC Glucose 176 H 161 H 146 H 05/24/19 05/24/19 05/24/19 04:45 04:45 05:36 WBC 6.6 RBC 2.94 L Hgb 8.8 L Hct 27.7 L MCV 94.2 MCH 29.9 MCHC 31.8 L RDW Std Deviation 46.4 H RDW Coeff of Alanna 13.4 Plt Count 209 MPV 9.7 Immature Gran % (Auto) 1.800 H Neut % (Auto) 76.6 H Lymph % (Auto) 13.0 L [place] % (Auto) 8.2 Eos % (Auto) 0.2 Baso % (Auto) 0.2 Absolute Neuts (auto) 5.0 Absolute Lymphs (auto) 0.85 Nucleated RBC % 0 Differential Comment SCANNED Specimen Type Sample Site pH Bicarbonate Actual POC Total CO2 Base Excess O2 Saturation O2 % ABG pCO2 ABG pO2 Binu Test Respiration Rate O2 Delivery Device Vent Mode Tidal Volume POC PEEP POC Pressure Suppt Blood Gas Notified Whom Blood Gas Notified Time Sodium 141 Potassium 3.9 Chloride 115 H Carbon Dioxide 16.0 L Anion Gap 10 BUN 19 H Creatinine 0.68 Estim Creat Clear Calc 30.62 Est GFR (MDRD) Af Amer 106 Est GFR (MDRD) Non-Af 88 BUN/Creatinine Ratio 27.9 H Glucose 152 H Lactic Acid Calcium 7.5 L POC Glucose 134 H 05/24/19 05/24/19 05/24/19 06:59 08:50 11:34 WBC RBC Hgb Hct MCV MCH MCHC RDW Std Deviation RDW Coeff of Alanna Plt Count MPV Immature Gran % (Auto) Neut % (Auto) Lymph % (Auto) [place] % (Auto) Eos % (Auto) Baso % (Auto) Absolute Neuts (auto) Absolute Lymphs (auto) Nucleated RBC % Differential Comment Specimen Type ART Sample Site R Radial pH 7.39 Bicarbonate Actual 13.6 L POC Total CO2 14 Base Excess -11 L O2 Saturation 99 O2 % 25 ABG pCO2 22.6 L ABG pO2 114 H Binu Test NA Respiration Rate 14 O2 Delivery Device Vent Vent Mode A-C Tidal Volume 450 POC PEEP 5 POC Pressure Suppt Blood Gas Notified Whom ICU MD Blood Gas Notified Time 657 Sodium Potassium Chloride Carbon Dioxide Anion Gap BUN Creatinine Estim Creat Clear Calc Est GFR (MDRD) Af Amer Est GFR (MDRD) Non-Af BUN/Creatinine Ratio Glucose Lactic Acid 0.6 Calcium POC Glucose 145 H 05/24/19 05/25/19 05/25/19 18:52 00:02 03:55 WBC 6.7 RBC 2.93 L Hgb 8.6 L Hct 28.2 L MCV 96.2 MCH 29.4 MCHC 30.5 L RDW Std Deviation 47.9 H RDW Coeff of Alanna 13.3 Plt Count 224 MPV 9.7 Immature Gran % (Auto) 2.100 H Neut % (Auto) 72.2 H Lymph % (Auto) 16.4 L [place] % (Auto) 8.6 Eos % (Auto) 0.4 Baso % (Auto) 0.3 Absolute Neuts (auto) 4.8 Absolute Lymphs (auto) 1.10 Nucleated RBC % 0 Differential Comment SCANNED Specimen Type Sample Site pH Bicarbonate Actual POC Total CO2 Base Excess O2 Saturation O2 % ABG pCO2 ABG pO2 Binu Test Respiration Rate O2 Delivery Device Vent Mode Tidal Volume POC PEEP POC Pressure Suppt Blood Gas Notified Whom Blood Gas Notified Time Sodium Potassium Chloride Carbon Dioxide Anion Gap BUN Creatinine Estim Creat Clear Calc Est GFR (MDRD) Af Amer Est GFR (MDRD) Non-Af BUN/Creatinine Ratio Glucose Lactic Acid Calcium POC Glucose 110 98 05/25/19 05/25/19 05/25/19 03:55 05:31 06:10 WBC RBC Hgb Hct MCV MCH MCHC RDW Std Deviation RDW Coeff of Alanna Plt Count MPV Immature Gran % (Auto) Neut % (Auto) Lymph % (Auto) [place] % (Auto) Eos % (Auto) Baso % (Auto) Absolute Neuts (auto) Absolute Lymphs (auto) Nucleated RBC % Differential Comment Specimen Type ART Sample Site L Radial pH 7.24 L Bicarbonate Actual 12.4 L POC Total CO2 13 Base Excess -15 L O2 Saturation 95 O2 % 25 ABG pCO2 29.0 L ABG pO2 88 Binu Test POS Respiration Rate O2 Delivery Device Vent Vent Mode CPAP PS Tidal Volume POC PEEP 5 POC Pressure Suppt 5 Blood Gas Notified Whom ICU MD Blood Gas Notified Time Sodium 141 Potassium 3.8 Chloride 116 H Carbon Dioxide 17.0 L Anion Gap 8 BUN 19 H Creatinine 0.60 Estim Creat Clear Calc 30.62 Est GFR (MDRD) Af Amer 124 Est GFR (MDRD) Non-Af 102 BUN/Creatinine Ratio 31.9 H Glucose 92 Lactic Acid Calcium 8.0 L POC Glucose 82 05/25/19 06:20 WBC RBC Hgb Hct MCV MCH MCHC RDW Std Deviation RDW Coeff of Alanna Plt Count MPV Immature Gran % (Auto) Neut % (Auto) Lymph % (Auto) [place] % (Auto) Eos % (Auto) Baso % (Auto) Absolute Neuts (auto) Absolute Lymphs (auto) Nucleated RBC % Differential Comment Specimen Type Sample Site pH Bicarbonate Actual POC Total CO2 Base Excess O2 Saturation O2 % ABG pCO2 ABG pO2 Binu Test Respiration Rate O2 Delivery Device Vent Mode Tidal Volume POC PEEP POC Pressure Suppt Blood Gas Notified Whom Blood Gas Notified Time Sodium Potassium Chloride Carbon Dioxide Anion Gap BUN Creatinine Estim Creat Clear Calc Est GFR (MDRD) Af Amer Est GFR (MDRD) Non-Af BUN/Creatinine Ratio Glucose Lactic Acid 0.6 Calcium POC Glucose Microbiology 05/24/19 13:12 Sputum, Induced/Lukens Gram Stain - Final Medical Necessity - Tobacco Use Smoking Status: Former smoker Tobacco Use: Non-smoker Assessment/Plan All Active Problems Small bowel obstruction (Acute) Dehydration (Acute) MERCEDES (acute kidney injury) (Acute) Hyponatremia (Acute) Hyperphosphatemia (Acute) RECOMMENDATIONS: 1. Transition to D5W 2. Okay to discontinue Precedex 3. Continue routine postoperative care per general surgery recommendations. 4. Start sliding scale insulin coverage every 6 hours. 5. Speech evaluation 6. Monitor in intensive care through the day IMPRESSIONS: 1. Small bowel obstruction, now POD #3 s/p exploratory laparotomy, lysis of adhesions and small bowel enterectomy Continue routine postoperative care per general surgery recommendations. Patient is currently receiving fentanyl by drip for pain, but this can be changed now the patient is extubated. Patient does appear to have a significant non-anion gap metabolic acidosis. Unclear if this is secondary from overventilation with metabolic compensation versus possible hyperchloremic metabolic acidosis. Abdominal exam is relatively benign at this time. Await surgical opinion. 2. Acute respiratory failure Patient was transition to Precedex therapy. Patient was able to tolerate spontaneous breathing trial this morning and was successfully extubated. Patient does have some hoarseness, but no stridor is noted. Wean oxygen as tolerated. 3. Hypertension/hyperlipidemia/diabetes mellitus Complicates care, management, recovery and prognosis. Home medications currently on hold. Continue sliding scale insulin coverage for now. Bedside swallow evaluation versus speech evaluation prior to p.o. intake. TIME: 38 minutes of critical care time, independent of procedures, was spent addressing the patient's small bowel obstruction status post surgical intervention, respiratory failure, anxiety, review of all data and collaboration with the care team. (6 AM to 7 AM) Code Visit Procedures: [id number] [facility] 1st Hr
--- NOTE | 2019-05-25 08:44 | PCM.PN.SRG ---
Patient Problems: Active and Suspected Problems Small bowel obstruction (Acute) Dehydration (Acute) MERCEDES (acute kidney injury) (Acute) Hyponatremia (Acute) Hyperphosphatemia (Acute) Subjective: Patient extubated this morning, appears to be doing well States that she has abdominal pain only to pressure applied to area denies flatus seems easily confused - Physical Exam General: Alert Oral: Moist Mucosa Neck: Supple Lungs: Normal air movement Abdomen: Soft, Hypoactive Bowel Sounds - wound is dry and intact, - - rectal - some stool in vault Psych/Mental Status: Appropriate - confused easily Vital Signs Temp Pulse Resp BP Pulse Ox 99.1 F 125 H 21 H 194/74 H 95 05/25/19 08:00 05/25/19 08:00 05/25/19 08:00 05/25/19 08:00 05/25/19 08:00 Oxygen Flow Rate (L/min) 2 Oxygen Delivery Method Nasal Cannula Weight: 61.3 kg Body Mass Index (BMI) 22.8 Finger Stick Blood Glucose 187 Intake and Output for Last 24 Hours 05/23/19 05/24/19 05/25/19 23:59 23:59 23:59 Intake Total 3900.43 / 4177.81 2976.76 / 2976.76 623.27 / 623.27 Output Total 750 / 1100 1545 / 1545 280 / 280 Balance 3150.43 / 3077.81 1431.76 / 1431.76 343.27 / 343.27 Microbiology Past 72 Hours 05/24/19 13:12 Gram Stain - Final Sputum, Induced/Lukens Laboratory Tests Past 24 Hrs 05/24/19 05/25/19 05/25/19 08:50 03:55 03:55 WBC 6.7 RBC 2.93 L Hgb 8.6 L Hct 28.2 L MCV 96.2 MCH 29.4 MCHC 30.5 L RDW Std Deviation 47.9 H RDW Coeff of Alanna 13.3 Plt Count 224 MPV 9.7 Immature Gran % (Auto) 2.100 H Neut % (Auto) 72.2 H Lymph % (Auto) 16.4 L [place] % (Auto) 8.6 Eos % (Auto) 0.4 Baso % (Auto) 0.3 Absolute Neuts (auto) 4.8 Absolute Lymphs (auto) 1.10 Nucleated RBC % 0 Differential Comment SCANNED Specimen Type Sample Site pH Bicarbonate Actual POC Total CO2 Base Excess O2 Saturation O2 % ABG pCO2 ABG pO2 Binu Test O2 Delivery Device Vent Mode POC PEEP POC Pressure Suppt Blood Gas Notified Whom Sodium 141 Potassium 3.8 Chloride 116 H Carbon Dioxide 17.0 L Anion Gap 8 BUN 19 H Creatinine 0.60 Estim Creat Clear Calc 30.62 Est GFR (MDRD) Af Amer 124 Est GFR (MDRD) Non-Af 102 BUN/Creatinine Ratio 31.9 H Glucose 92 Lactic Acid 0.6 Calcium 8.0 L 05/25/19 05/25/19 06:10 06:20 WBC RBC Hgb Hct MCV MCH MCHC RDW Std Deviation RDW Coeff of Alanna Plt Count MPV Immature Gran % (Auto) Neut % (Auto) Lymph % (Auto) [place] % (Auto) Eos % (Auto) Baso % (Auto) Absolute Neuts (auto) Absolute Lymphs (auto) Nucleated RBC % Differential Comment Specimen Type ART Sample Site L Radial pH 7.24 L Bicarbonate Actual 12.4 L POC Total CO2 13 Base Excess -15 L O2 Saturation 95 O2 % 25 ABG pCO2 29.0 L ABG pO2 88 Binu Test POS O2 Delivery Device Vent Vent Mode CPAP PS POC PEEP 5 POC Pressure Suppt 5 Blood Gas Notified Whom ICU MD Sodium Potassium Chloride Carbon Dioxide Anion Gap BUN Creatinine Estim Creat Clear Calc Est GFR (MDRD) Af Amer Est GFR (MDRD) Non-Af BUN/Creatinine Ratio Glucose Lactic Acid 0.6 Calcium POC Glucose 05/25/19 05/25/19 05/24/19 05:31 00:02 18:52 POC Glucose 82 98 110 05/24/19 11:34 POC Glucose 145 H Medical Necessity - Tobacco Use Smoking Status: Former smoker Tobacco Use: Non-smoker Assessment/Plan All Active Problems Small bowel obstruction (Acute) Dehydration (Acute) MERCEDES (acute kidney injury) (Acute) Hyponatremia (Acute) Hyperphosphatemia (Acute) POD#3 s/p small bowel resection for complete bowel obstruction due to adhesions Plan: start clear liquid diet encourage PT and incentive spirometry may require transitional care prior to patient going home as she has become deconditioned and debilitated with this illness
[2019-05-25] MEDS: Metoprolol Tartrate 5 MG/5 ML Vial 2.5 MG IV (09:04)
--- NOTE | 2019-05-25 09:12 | PN_ITS ---
Patient Problems: Active and Suspected Problems Small bowel obstruction (Acute) Dehydration (Acute) MERCEDES (acute kidney injury) (Acute) Hyponatremia (Acute) Hyperphosphatemia (Acute) Subjective: This morning, tachycardic and hypertensive but she has not taken her metoprolol which is 200 mg p.o. twice daily. Pain is controlled Vitals/I&O's: Vital Signs Temp Pulse Resp BP Pulse Ox 99.1 F 135 H 21 H 194/74 H 95 05/25/19 08:00 05/25/19 09:04 05/25/19 08:00 05/25/19 09:04 05/25/19 08:00 Oxygen Flow Rate (L/min) 2 Oxygen Delivery Method Nasal Cannula Weight: 135 lb 2.294 oz Body Mass Index (BMI) 22.8 Finger Stick Blood Glucose 187 Intake and Output for Last 24 Hours 05/23/19 05/24/19 05/25/19 23:59 23:59 23:59 Intake Total 3900.43 / 4177.81 2976.76 / 2976.76 623.27 / 623.27 Output Total 750 / 1100 1545 / 1545 280 / 280 Balance 3150.43 / 3077.81 1431.76 / 1431.76 343.27 / 343.27 General: Alert, Oriented x3, Cooperative, No apparent distress HEENT: Atraumatic, PERRLA, EOMI, Normocephalic Neck: Supple, No JVD Lungs: Normal air movement, Diminished, - - Coarse breath sounds bilaterally Cardiovascular: Regular rate, Regular Rhythm, Normal S1, Normal S2, No murmurs Abdomen: Soft, Non Tender, Non-Distended, No Hepato-splenomegaly Extremities: No edema, Capillary Refill Less than 3 Seconds Skin: No rashes, No breakdown, Incision - Dressing is CDI Neurological: Neuro grossly intact, Sensory exam intact to light touch and pain Psych/Mental Status: Normal Affect, Appropriate Microbiology Past 72 Hours 05/24/19 13:12 Sputum, Induced/Lukens Gram Stain - Final Laboratory Results 05/24/19 08:50: Lactic Acid 0.6 05/24/19 11:34: POC Glucose 145 H 05/24/19 18:52: POC Glucose 110 05/25/19 00:02: POC Glucose 98 05/25/19 03:55: WBC 6.7, RBC 2.93 L, Hgb 8.6 L, Hct 28.2 L, MCV 96.2, MCH 29.4, MCHC 30.5 L, RDW Std Deviation 47.9 H, RDW Coeff of Alanna 13.3, Plt Count 224, MPV 9.7, Immature Gran % (Auto) 2.100 H, Neut % (Auto) 72.2 H, Lymph % (Auto) 16.4 L , [place] % (Auto) 8.6, Eos % (Auto) 0.4, Baso % (Auto) 0.3, Absolute Neuts (auto) 4.8, Absolute Lymphs (auto) 1.10, Nucleated RBC % 0, Differential Comment SCANNED 05/25/19 03:55: Sodium 141, Potassium 3.8, Chloride 116 H, Carbon Dioxide 17.0 L , Anion Gap 8, BUN 19 H, Creatinine 0.60, Estim Creat Clear Calc 30.62, Est GFR (MDRD) Af Amer 124, Est GFR (MDRD) Non-Af 102, BUN/Creatinine Ratio 31.9 H, Glucose 92, Calcium 8.0 L 05/25/19 05:31: POC Glucose 82 05/25/19 06:10: Specimen Type ART, Sample Site L Radial, pH 7.24 L, Bicarbonate Actual 12.4 L, POC Total CO2 13, Base Excess -15 L, O2 Saturation 95, O2 % 25, ABG pCO2 29.0 L, ABG pO2 88, Binu Test POS, O2 Delivery Device Vent, Vent Mode CPAP PS, POC PEEP 5, POC Pressure Suppt 5, Blood Gas Notified Whom ICU 05/25/19 06:20: Lactic Acid 0.6 Current Medications Albuterol Sulfate (Ventolin Aerosols) 2.5 mg INHALATION Q2H PRN PRN PRN Reason: WHEEZING Chlorhexidine Gluconate () 1 each TOPICAL DAILY [facility] Last Admin: 05/25/19 02:48 Dose: 1 each Documented by: Dextrose (D50w Syringe) 0 gm IV X1 PRN; Protocol PRN Reason: Hypoglycemia Glucagon () 1 mg IM .X1 PRN PRN Reason: Hypoglycemia Heparin Sodium (Porcine) (Heparin Na) 5,000 unit SC Q8 [facility] Last Admin: 05/25/19 05:34 Dose: 5,000 unit Documented by: Hydralazine HCl (Apresoline Iv) 10 mg IV Q4H PRN PRN PRN Reason: sys>150 DIAST>80 Last Admin: 05/24/19 01:18 Dose: 10 mg Documented by: Famotidine 20 mg/ Sodium (Chloride) 10 mls @ 300 mls/hr IV Q12 JERILYN Last Infusion: 05/24/19 21:26 Dose: Infused Documented by: Sodium Chloride () 250 mls @ 15 mls/hr IV .[id number] PRN PRN Reason: SALINE FLUSH Dextrose () 1,000 mls @ 40 mls/hr IV .Q25H JERILYN Last Admin: 05/25/19 06:36 Dose: 40 mls/hr Documented by: Insulin Human Lispro (Humalog Kwikpen (Bkc)) 0 unit SC Q6 JERILYN; Protocol Last Admin: 05/25/19 05:34 Dose: Not Given Documented by: Latanoprost (Xalatan Opthalmic) 1 drop EACH EYE QHS JERILYN Last Admin: 05/24/19 21:18 Dose: 1 drop Documented by: Ondansetron HCl (Zofran) 4 mg IV Q8H PRN PRN PRN Reason: NAUSEA/VOMITING Promethazine HCl (Phenergan) 6.25 mg IV Q6H PRN PRN PRN Reason: NAUSEA/VOMITING Sodium Chloride () 10 - 40 ml IV UD PRN PRN Reason: SALINE FLUSH Last Admin: 05/24/19 21:25 Dose: 10 ml Documented by: Sodium Chloride () 10 - 40 ml IV UD PRN PRN Reason: SALINE FLUSH Medical Necessity - Tobacco Use Smoking Status: Former smoker Tobacco Use: Non-smoker Assessment/Plan All Active Problems Small bowel obstruction (Acute) Dehydration (Acute) MERCEDES (acute kidney injury) (Acute) Hyponatremia (Acute) Hyperphosphatemia (Acute) 1. Small bowel obstruction/hyponatremia and MERCEDES secondary to dehydration -She had an exploratory laparotomy on 05/22/2019 -Extubated this morning -Hyponatremia has resolved and her renal function is back to her baseline. -Continue with IV fluids -Appreciate surgical assistance -Continue with Pepcid since she is intubated with an NG tube in place 2. DM 2 -We will hold metformin and glimepiride -Continue with sliding scale insulin and Accu-Cheks 3. HTN/HLD -Pressure this morning with systolics close to 200, and heart rates in the 130s -Restart her home medications if she passes dysphagia screen -Continue with hydralazine as needed 4. Glaucoma -Stable -Continue with latanoprost DVT: Heparin Code Visit Inpatient E&M: 00174 Subs Hosp L2
[2019-05-25 11:06] LABS: Bedside Glucose 92 mg/dL (70-110)
[2019-05-25] MEDS: Metoprolol Tartrate 5 MG/5 ML Vial IV (12:09)
[2019-05-25] MEDS: Metoprolol Tartrate 100 MG Tablet 200 MG PO ×2 (14:25→21:13)
[2019-05-25] MEDS: levoFLOXacin IV 500 MG/100 ML BAG 100 MG IV (15:20)
[2019-05-25 17:01] LABS: Bedside Glucose 111 mg/dL (70-110)
[2019-05-25] MEDS: Losartan Potassium 100 MG Tablet PO (21:13)
[2019-05-25] MEDS: amLODIPine 2.5 MG Tablet PO (21:13)
[2019-05-25] MEDS: Latanoprost 0.005% 1 Bottle 1 DRP EACH EYE (21:14)
[2019-05-25] MEDS: 0.9% NaCl Peripheral Flush Adult/Peds IV (21:38)
[2019-05-25 21:45] LABS: Bedside Glucose 117 mg/dL (70-110)
[2019-05-26] VITALS (26 sets, daily range): BP systolic 135–204; BP diastolic 26–91; PULSE 70–98; RESP 13–24; TEMP 36.1–36.7; O2SAT 95–97
[2019-05-26] MEDS: oxyCODONE 5 MG Tablet PO ×3 (00:36→08:16)
[2019-05-26] MEDS: hydrALAZINE 20 MG/ML Vial 10 MG IV ×2 (00:37→16:02)
[2019-05-26] MEDS: 0.9% NaCl Peripheral Flush Adult/Peds IV ×3 (00:41→21:05)
[2019-05-26 04:28] LABS: Anion Gap 11 (5-15); BUN 17 mg/dL (7-18); BUN/Creat Ratio 27.8 RATIO (10-20); Calcium,Total 8.5 mg/dL (8.5-10.1); Chloride 110 mmol/L (98-107); Creatinine, Serum 0.61 mg/dL (0.55-1.02); EST Glomerular Filtration Rate 99 mL/min (>60); Est Glom Filt Rate - Afr Amer 120 mL/min (>60); Estimated Creatinine Clearance 30.62 ml/min; Glucose 147 mg/dL (74-106); Potassium 3.9 mmol/L (3.5-5.1); Sodium Level 140 mmol/L (136-145)
[2019-05-26 04:33] LABS: Absolute Lymphocyte Count 1.14 X10^3/uL (0.83-4.51); Absolute Neutrophil Count 19.1 X10^3/uL (2.0-7.7); Basophil# 0.13 X10^3/uL; Basophil% 0.6 % (0-1); Eosinophil# 0.09 X10^3/uL; Eosinophils% 0.4 % (0-5); Hematocrit 35.5 % (37-47); Hemoglobin 11.3 g/dL (12.0-15.0); Lymphocyte # 1.14 X10^3/ul (4.0); Lymphocyte % 5.2 % (19-41); Mean Corp Hgb Conc 31.8 g/dL (32-36); Mean Corpuscular Hgb 29.7 pg (27.0-32.0); Mean Corpuscular Volume 93.4 fL (81-99); Mean Platelet Vol. 9.8 fl (6.2-12.0); Monocyte# 1.09 X10^3/uL; NRBC Flagged by Analyzer 0 % (0-5); Neutrophil # 19.09 X10^3/uL (2.7-7.7); Neutrophil % 87.7 % (47-70); Platelet Count 324 K/mm3 (150-450); RBC Distribution Width CV 13.3 % (11.6-14.6); RBC Distribution Width SD 45.8 fl (35.1-43.9); White Blood Count 21.8 K/mm3 (4.4-11.0)
[2019-05-26] MEDS: Heparin Injection (Vial) 5,000 UNIT/ML VIAL 5000 UNIT SC ×3 (05:33→20:55)
--- NOTE | 2019-05-26 07:28 | PN.SURG_ITS ---
Patient Problems: Active and Suspected Problems Small bowel obstruction (Acute) Dehydration (Acute) MERCEDES (acute kidney injury) (Acute) Hyponatremia (Acute) Hyperphosphatemia (Acute) Subjective: Patient had passed flatus and she states that she had small bowel movement she complains of abdominal pain, but states that when she lies still - she does not have any - presently off fentanyl drip elevated WBC this morning, afebrile - Physical Exam General: Alert, Oriented x3 Oral: Moist Mucosa Neck: Supple Lungs: Normal air movement - coughing, slight wheeze Abdomen: Soft - generalized tenderness, wound is intact - minimal erythema of lower aspect Vital Signs Temp Pulse Resp BP Pulse Ox 97.0 F L 85 15 179/54 H 96 05/26/19 04:00 05/26/19 07:00 05/26/19 07:00 05/26/19 07:00 05/26/19 07:00 Oxygen Flow Rate (L/min) 2 Oxygen Delivery Method Room Air Weight: 59.1 kg Body Mass Index (BMI) 22.8 Finger Stick Blood Glucose 187 Intake and Output for Last 24 Hours 05/24/19 05/25/19 05/26/19 23:59 23:59 23:59 Intake Total 2976.76 / 2976.76 1043.27 / 1043.27 120 / 120 Output Total 1545 / 1545 1430 / 1430 250 / 250 Balance 1431.76 / 1431.76 -386.73 / -386.73 -130 / -130 Microbiology Past 72 Hours 05/24/19 13:12 Gram Stain - Final Sputum, Induced/Lukens Respiratory Culture - 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 Laboratory Tests Past 24 Hrs 05/26/19 05/26/19 04:10 04:10 WBC 21.8 H RBC 3.80 L Hgb 11.3 L Hct 35.5 L MCV 93.4 MCH 29.7 MCHC 31.8 L RDW Std Deviation 45.8 H RDW Coeff of Alanna 13.3 Plt Count 324 MPV 9.8 Immature Gran % (Auto) 1.100 H Neut % (Auto) 87.7 H Lymph % (Auto) 5.2 L [place] % (Auto) 5.0 Eos % (Auto) 0.4 Baso % (Auto) 0.6 Absolute Neuts (auto) 19.1 H Absolute Lymphs (auto) 1.14 Nucleated RBC % 0 Sodium 140 Potassium 3.9 Chloride 110 H Carbon Dioxide 19.0 L Anion Gap 11 BUN 17 Creatinine 0.61 Estim Creat Clear Calc 30.62 Est GFR (MDRD) Af Amer 120 Est GFR (MDRD) Non-Af 99 BUN/Creatinine Ratio 27.8 H Glucose 147 H Calcium 8.5 POC Glucose 05/25/19 05/25/19 05/25/19 21:22 16:56 10:55 POC Glucose 117 H 111 H 92 Medical Necessity - Tobacco Use Smoking Status: Former smoker Tobacco Use: Non-smoker Assessment/Plan All Active Problems Small bowel obstruction (Acute) Dehydration (Acute) MERCEDES (acute kidney injury) (Acute) Hyponatremia (Acute) Hyperphosphatemia (Acute) POD#4 s/p small bowel resection for complete bowel obstruction due to adhesions concern for possible intraabdominal process - with elevated WBC, also persistent acidosis Plan: still has persistent acidosis - lactic acids thus far have been normal has elevated WBC this morning - 21K will check serum lactic acid this morning check CXR will order abdominal/pelvic CT scan with contrast
--- NOTE | 2019-05-26 07:38 | CT_ITS ---
STUDY: CT ABDOMEN AND PELVIS WITH CONTRAST REASON FOR EXAM: Female, 84 years old. Recent surgery with leukocytosis RADIATION DOSAGE (If Supplied By Facility): CTDIvol = ( 15.44 ) mGy, DLP = ( 723.06 ) mGycm TECHNIQUE: Transaxial images were obtained from the dome of the diaphragm to the symphysis pubis with oral contrast. IV/Oral Isovue 300 100 was administered. Sagittal and coronal images were reconstructed. Individualized dose optimization techniques were used for this CT. COMPARISON: 05/22/2019 FINDINGS: Small right pleural effusion with right lower lobe atelectasis. The visualized portions of the heart are within normal limits. Small amount of ascites primarily surrounding the liver. Edema of the subcutaneous fat of the abdominal wall consistent with anasarca. Skin jory in the midline consistent with recent abdominal surgery. Normal liver. Normal gallbladder and extrahepatic biliary system. Normal spleen. Normal pancreas. Normal bilateral adrenal glands. Normal right kidney. Exophytic 4 cm cyst in the upper pole the left kidney. Normal visualized stomach. Suture line at the distal ileum. Mildly dilated small bowel but normal progression of oral contrast into the colon and no transition point to suggest obstruction. Normal colon. There is non-visualization of the appendix. There is diffuse atherosclerotic calcification of the abdominal aorta, without a demonstrated aneurysm. Normal inferior vena cava. Normal retroperitoneum. Normal urinary bladder. Normal abdominal wall. Normal osseous structures. CT/Abdomen/Pelvis WITH Contrast IMPRESSION: 1. Recent abdominal surgery for treatment of small bowel obstruction with a suture line at the distal ileum and some mildly dilated small bowel but normal progression of oral contrast and no transition point to suggest bowel obstruction. 2. Volume overload with small right pleural effusion, small amount of ascites, and anasarca. Electronically Signed: Shahram Kelley MD at 10:56 EDT Tel , Service support ,
[2019-05-26] MEDS: Metoprolol Tartrate 100 MG Tablet 200 MG PO ×2 (08:17→20:53)
--- NOTE | 2019-05-26 08:22 | PCM.PN.INT ---
Subjective: Patient did well overnight. Patient has remained on room air and hemodynamically stable. Blood pressures have been elevated requiring PRN hydralazine. Patient did report abdominal pain overnight, but responded well to OxyIR. She has been passing gas overnight. General: Alert, Oriented x3, Cooperative, No apparent distress, - - Appears stated age. No conversational dyspnea. HEENT: Atraumatic, PERRLA, EOMI, Normocephalic, - - No scleral icterus or injection noted. Oral: Moist Mucosa, No Gingival or Mucosal Lesions/ Ulcerations Neck: Supple, No JVD, No Nodes, Trachea Midline Lungs: No rhonchi, No wheeze, No rales, Diminished, - - Fair effort. Symmetric expansion. Cardiovascular: Regular rate, Regular Rhythm, Normal S1, Normal S2, No murmurs, No rub noted, No Gallop Abdomen: Bowel Sounds Present, Soft, Non-Distended, Tender - No rebound or guarding noted. Extremities: No clubbing, No cyanosis, Capillary Refill Less than 3 Seconds, Edema Skin: No rashes, No breakdown Musculoskeletal: No Tenderness to Palpation of Joints or Extremities Lymphatic: No Cervical, Supraclavicular, or Inguinal Adenopathy Neurological: Cranial nerves II-XII grossly intact, Neuro grossly intact, Motor Exam 5/5 strength throughout Psych/Mental Status: Anxious, Restless Vital Signs Temp Pulse Resp BP Pulse Ox 36.1 C L 98 15 204/66 H 96 05/26/19 04:00 05/26/19 08:17 05/26/19 07:00 05/26/19 08:17 05/26/19 07:00 Oxygen Flow Rate (L/min) 2 Oxygen Delivery Method Room Air Weight: 59.1 kg Body Mass Index (BMI) 22.8 Finger Stick Blood Glucose 187 Intake and Output for Last 24 Hours 05/24/19 05/25/19 05/26/19 23:59 23:59 23:59 Intake Total 2976.76 / 2976.76 1043.27 / 1043.27 120 / 120 Output Total 1545 / 1545 1430 / 1430 250 / 250 Balance 1431.76 / 1431.76 -386.73 / -386.73 -130 / -130 Labs (Last 48 Hours) 05/24/19 05/24/19 05/24/19 08:50 11:34 18:52 WBC RBC Hgb Hct MCV MCH MCHC RDW Std Deviation RDW Coeff of Alanna Plt Count MPV Immature Gran % (Auto) Neut % (Auto) Lymph % (Auto) [place] % (Auto) Eos % (Auto) Baso % (Auto) Absolute Neuts (auto) Absolute Lymphs (auto) Nucleated RBC % Differential Comment Specimen Type Sample Site pH Bicarbonate Actual POC Total CO2 Base Excess O2 Saturation O2 % ABG pCO2 ABG pO2 Binu Test O2 Delivery Device Vent Mode POC PEEP POC Pressure Suppt Blood Gas Notified Whom Sodium Potassium Chloride Carbon Dioxide Anion Gap BUN Creatinine Estim Creat Clear Calc Est GFR (MDRD) Af Amer Est GFR (MDRD) Non-Af BUN/Creatinine Ratio Glucose Lactic Acid 0.6 Calcium POC Glucose 145 H 110 05/25/19 05/25/19 05/25/19 00:02 03:55 03:55 WBC 6.7 RBC 2.93 L Hgb 8.6 L Hct 28.2 L MCV 96.2 MCH 29.4 MCHC 30.5 L RDW Std Deviation 47.9 H RDW Coeff of Alanna 13.3 Plt Count 224 MPV 9.7 Immature Gran % (Auto) 2.100 H Neut % (Auto) 72.2 H Lymph % (Auto) 16.4 L [place] % (Auto) 8.6 Eos % (Auto) 0.4 Baso % (Auto) 0.3 Absolute Neuts (auto) 4.8 Absolute Lymphs (auto) 1.10 Nucleated RBC % 0 Differential Comment SCANNED Specimen Type Sample Site pH Bicarbonate Actual POC Total CO2 Base Excess O2 Saturation O2 % ABG pCO2 ABG pO2 Binu Test O2 Delivery Device Vent Mode POC PEEP POC Pressure Suppt Blood Gas Notified Whom Sodium 141 Potassium 3.8 Chloride 116 H Carbon Dioxide 17.0 L Anion Gap 8 BUN 19 H Creatinine 0.60 Estim Creat Clear Calc 30.62 Est GFR (MDRD) Af Amer 124 Est GFR (MDRD) Non-Af 102 BUN/Creatinine Ratio 31.9 H Glucose 92 Lactic Acid Calcium 8.0 L POC Glucose 98 05/25/19 05/25/19 05/25/19 05:31 06:10 06:20 WBC RBC Hgb Hct MCV MCH MCHC RDW Std Deviation RDW Coeff of Alanna Plt Count MPV Immature Gran % (Auto) Neut % (Auto) Lymph % (Auto) [place] % (Auto) Eos % (Auto) Baso % (Auto) Absolute Neuts (auto) Absolute Lymphs (auto) Nucleated RBC % Differential Comment Specimen Type ART Sample Site L Radial pH 7.24 L Bicarbonate Actual 12.4 L POC Total CO2 13 Base Excess -15 L O2 Saturation 95 O2 % 25 ABG pCO2 29.0 L ABG pO2 88 Binu Test POS O2 Delivery Device Vent Vent Mode CPAP PS POC PEEP 5 POC Pressure Suppt 5 Blood Gas Notified Whom ICU Sodium Potassium Chloride Carbon Dioxide Anion Gap BUN Creatinine Estim Creat Clear Calc Est GFR (MDRD) Af Amer Est GFR (MDRD) Non-Af BUN/Creatinine Ratio Glucose Lactic Acid 0.6 Calcium POC Glucose 82 05/25/19 05/25/19 05/25/19 10:55 16:56 21:22 WBC RBC Hgb Hct MCV MCH MCHC RDW Std Deviation RDW Coeff of Alanna Plt Count MPV Immature Gran % (Auto) Neut % (Auto) Lymph % (Auto) [place] % (Auto) Eos % (Auto) Baso % (Auto) Absolute Neuts (auto) Absolute Lymphs (auto) Nucleated RBC % Differential Comment Specimen Type Sample Site pH Bicarbonate Actual POC Total CO2 Base Excess O2 Saturation O2 % ABG pCO2 ABG pO2 Binu Test O2 Delivery Device Vent Mode POC PEEP POC Pressure Suppt Blood Gas Notified Whom Sodium Potassium Chloride Carbon Dioxide Anion Gap BUN Creatinine Estim Creat Clear Calc Est GFR (MDRD) Af Amer Est GFR (MDRD) Non-Af BUN/Creatinine Ratio Glucose Lactic Acid Calcium POC Glucose 92 111 H 117 H 05/26/19 05/26/19 05/26/19 04:10 04:10 07:10 WBC 21.8 H RBC 3.80 L Hgb 11.3 L Hct 35.5 L MCV 93.4 MCH 29.7 MCHC 31.8 L RDW Std Deviation 45.8 H RDW Coeff of Alanna 13.3 Plt Count 324 MPV 9.8 Immature Gran % (Auto) 1.100 H Neut % (Auto) 87.7 H Lymph % (Auto) 5.2 L [place] % (Auto) 5.0 Eos % (Auto) 0.4 Baso % (Auto) 0.6 Absolute Neuts (auto) 19.1 H Absolute Lymphs (auto) 1.14 Nucleated RBC % 0 Differential Comment Specimen Type Sample Site pH Bicarbonate Actual POC Total CO2 Base Excess O2 Saturation O2 % ABG pCO2 ABG pO2 Binu Test O2 Delivery Device Vent Mode POC PEEP POC Pressure Suppt Blood Gas Notified Whom Sodium 140 Potassium 3.9 Chloride 110 H Carbon Dioxide 19.0 L Anion Gap 11 BUN 17 Creatinine 0.61 Estim Creat Clear Calc 30.62 Est GFR (MDRD) Af Amer 120 Est GFR (MDRD) Non-Af 99 BUN/Creatinine Ratio 27.8 H Glucose 147 H Lactic Acid 1.0 Calcium 8.5 POC Glucose Microbiology 05/24/19 13:12 Sputum, Induced/Lukens Gram Stain - Final 05/24/19 13:12 Sputum, Induced/Lukens Respiratory Culture - Final Escherichia coli Medical Necessity - Tobacco Use Smoking Status: Former smoker Tobacco Use: Non-smoker Assessment/Plan All Active Problems Small bowel obstruction (Acute) Dehydration (Acute) MERCEDES (acute kidney injury) (Acute) Hyponatremia (Acute) Hyperphosphatemia (Acute) RECOMMENDATIONS: 1. Increase Norvasc therapy 2. Continue p.o. pain medication 3. Continue routine postoperative care per general surgery recommendations. 4. Start sliding scale insulin coverage every 6 hours. 5. Transition to p.o. Pepcid 6. Okay to transfer from the intensive care unit 7. Hemodynamically stable on room air. Will sign off from a critical care perspective. IMPRESSIONS: 1. Small bowel obstruction, now POD #4 s/p exploratory laparotomy, lysis of adhesions and small bowel enterectomy Continue routine postoperative care per general surgery recommendations. Surgery has ordered a CAT scan of the abdomen. Abdomen appears to be relatively benign from my examination. Would defer to surgery. Patient is showing signs of bowel motility. 2. Acute respiratory failure Patient sputum has grown E. coli. This would be consistent with possible aspiration event during anesthesia as this is typically not a bug that is found to community-acquired pneumonia. Patient has been placed on antibiotics and is tolerating well. Treatment is complicated by patient's reported reaction to penicillins. Patient should complete a 5-day course of antibiotics. 3. Hypertension/hyperlipidemia/diabetes mellitus Complicates care, management, recovery and prognosis. To need to reinstitute home medications. Norvasc will be increased given hypertension. Continue sliding scale insulin coverage for now. Code Visit Inpatient E&M: 19734 [facility] Hosp L3
[2019-05-26] MEDS: Albuterol 2.5 MG/3 ML VIAL.NEB. INHALATION (08:41)
[2019-05-26] MEDS: Insulin Lispro 100 UNIT/ML INSULN.PEN SC ×2 (08:51→21:04)
[2019-05-26 09:00] LABS: Bedside Glucose 158 mg/dL (70-110)
--- NOTE | 2019-05-26 09:09 | PN_ITS ---
Patient Problems: Active and Suspected Problems Small bowel obstruction (Acute) Dehydration (Acute) MERCEDES (acute kidney injury) (Acute) Hyponatremia (Acute) Hyperphosphatemia (Acute) Subjective: More alert today, says that she is breathing better. Seems more little less anxious. She is passing flatus Vitals/I&O's: Vital Signs Temp Pulse Resp BP Pulse Ox 97.0 F L 87 18 204/66 H 97 05/26/19 04:00 05/26/19 08:41 05/26/19 08:41 05/26/19 08:17 05/26/19 08:41 Oxygen Flow Rate (L/min) 2 Oxygen Delivery Method Room Air Weight: 130 lb 4.691 oz Body Mass Index (BMI) 22.8 Finger Stick Blood Glucose 187 Intake and Output for Last 24 Hours 05/24/19 05/25/19 05/26/19 23:59 23:59 23:59 Intake Total 2976.76 / 2976.76 1043.27 / 1043.27 120 / 120 Output Total 1545 / 1545 1430 / 1430 250 / 250 Balance 1431.76 / 1431.76 -386.73 / -386.73 -130 / -130 General: Alert, Oriented x3, Cooperative, No apparent distress HEENT: Atraumatic, PERRLA, EOMI, Normocephalic Neck: Supple, No JVD Lungs: Normal air movement, Diminished, slight wheezing bilaterally Cardiovascular: Regular rate, Regular Rhythm, Normal S1, Normal S2, No murmurs Abdomen: Soft, Non Tender kept around incision, Non-Distended, No Hepato- splenomegaly Extremities: No edema, Capillary Refill Less than 3 Seconds Skin: No rashes, No breakdown, Incision - Dressing is CDI Neurological: Neuro grossly intact, Sensory exam intact to light touch and pain Psych/Mental Status: Normal Affect, Appropriate Microbiology Past 72 Hours 05/24/19 13:12 Sputum, Induced/Lukens Gram Stain - Final 05/24/19 13:12 Sputum, Induced/Lukens Respiratory Culture - Final Escherichia coli Laboratory Results 05/25/19 10:55: POC Glucose 92 05/25/19 16:56: POC Glucose 111 H 05/25/19 21:22: POC Glucose 117 H 05/26/19 04:10: WBC 21.8 H, RBC 3.80 L, Hgb 11.3 L, Hct 35.5 L, MCV 93.4, MCH 29.7, MCHC 31.8 L, RDW Std Deviation 45.8 H, RDW Coeff of Alanna 13.3, Plt Count 324, MPV 9.8, Immature Gran % (Auto) 1.100 H, Neut % (Auto) 87.7 H, Lymph % (Auto) 5.2 L, [place] % (Auto) 5.0, Eos % (Auto) 0.4, Baso % (Auto) 0.6, Absolute Neuts (auto) 19.1 H, Absolute Lymphs (auto) 1.14, Nucleated RBC % 0 05/26/19 04:10: Sodium 140, Potassium 3.9, Chloride 110 H, Carbon Dioxide 19.0 L , Anion Gap 11, BUN 17, Creatinine 0.61, Estim Creat Clear Calc 30.62, Est GFR (MDRD) Af Amer 120, Est GFR (MDRD) Non-Af 99, BUN/Creatinine Ratio 27.8 H, Glucose 147 H, Calcium 8.5 05/26/19 07:10: Lactic Acid 1.0 05/26/19 08:50: POC Glucose 158 H Current Medications Albuterol Sulfate (Ventolin Aerosols) 2.5 mg INHALATION Q2H PRN PRN PRN Reason: WHEEZING Last Admin: 05/26/19 08:41 Dose: 2.5 mg Documented by: Amlodipine Besylate (Norvasc) 5 mg PO QHS [facility] Chlorhexidine Gluconate () 1 each TOPICAL DAILY [facility] Last Admin: 05/25/19 02:48 Dose: 1 each Documented by: Dextrose (D50w Syringe) 0 gm IV X1 PRN; Protocol PRN Reason: Hypoglycemia Glucagon () 1 mg IM .X1 PRN PRN Reason: Hypoglycemia Heparin Sodium (Porcine) (Heparin Na) 5,000 unit SC Q8 [facility] Last Admin: 05/26/19 05:33 Dose: 5,000 unit Documented by: Hydralazine HCl (Apresoline Iv) 10 mg IV Q4H PRN PRN PRN Reason: sys>150 DIAST>80 Last Admin: 05/26/19 00:37 Dose: 10 mg Documented by: Famotidine 20 mg/ Sodium (Chloride) 10 mls @ 300 mls/hr IV Q12 [facility] Last Infusion: 05/25/19 21:40 Dose: Infused Documented by: Sodium Chloride () 250 mls @ 15 mls/hr IV .[id number] PRN PRN Reason: SALINE FLUSH Levofloxacin (Levaquin Iv) 250 mg in 50 mls @ 50 mls/hr IV Q24 [facility] Insulin Human Lispro (Humalog Kwikpen (Bkc)) 0 unit SC [facility]; Protocol Last Admin: 05/26/19 08:51 Dose: 1 units Documented by: Latanoprost (Xalatan Opthalmic) 1 drop EACH EYE QHS [facility] Last Admin: 05/25/19 21:14 Dose: 1 drop Documented by: Losartan Potassium (Cozaar) 100 mg PO QHS [facility] Last Admin: 05/25/19 21:13 Dose: 100 mg Documented by: Metoprolol Tartrate (Lopressor (Beta Sudheer)) 200 mg PO BID [facility] Last Admin: 05/26/19 08:17 Dose: 200 mg Documented by: Ondansetron HCl (Zofran) 4 mg IV Q8H PRN PRN PRN Reason: NAUSEA/VOMITING Oxycodone HCl (Oxyir) 5 mg PO Q4H PRN PRN PRN Reason: Pain Score 6-10/10 Last Admin: 05/26/19 08:16 Dose: 5 mg Documented by: Promethazine HCl (Phenergan) 6.25 mg IV Q6H PRN PRN PRN Reason: NAUSEA/VOMITING Sodium Chloride () 10 - 40 ml IV UD PRN PRN Reason: SALINE FLUSH Last Admin: 05/26/19 00:41 Dose: 10 ml Documented by: Sodium Chloride () 10 - 40 ml IV UD PRN PRN Reason: SALINE FLUSH Medical Necessity - Tobacco Use Smoking Status: Former smoker Tobacco Use: Non-smoker Assessment/Plan All Active Problems Small bowel obstruction (Acute) Dehydration (Acute) MERCEDES (acute kidney injury) (Acute) Hyponatremia (Acute) Hyperphosphatemia (Acute) 1. Small bowel obstruction/hyponatremia and MERCEEDS secondary to dehydration/acute respiratory failure-resolved -She had an exploratory laparotomy on 05/22/2019 -Extubated this 05/25/2019 -Hyponatremia has resolved and her renal function is back to her baseline. -Continue with IV fluids -Appreciate surgical assistance -Continue with Pepcid since she is intubated with an NG tube in place -There is some concern because of her white count went up to 21 overnight, that working to get a CT scan of her abdomen and pelvis to rule out any abscess or fluid collection. -Sputum culture with E. coli, likely aspiration event we will continue levaquin 2. DM 2 -We will hold metformin and glimepiride -Continue with sliding scale insulin and Accu-Cheks 3. HTN/HLD -Blood pressure this morning is high but her heart rate is more controlled into the high 90s low 100s -Continue with her home blood pressure medications -Continue with hydralazine as needed 4. Glaucoma -Stable -Continue with latanoprost DVT: Heparin Code Visit Inpatient E&M: 78259 [facility]s Hosp L2
--- NOTE | 2019-05-26 09:37 | CASEMGMT ---
Case Management Progress Note: Patient sitting up in chair on RA, Alert and oriented. Met with patient and Dtr at bedside, discussed further on goals of care/care coordination. Patient was able to progress and walk with PT yesterday some, aware CM will continue to follow PT/OT progress and re-round with patient and dtr on preferred plan and transition of care after hospital. Dtr confirms has list for HHC and SNF and will discuss further with patient. Dtr aware to notify primary nurse if needing to s/w CM. Denies any questions/concern/issues at this time. Leif Perez RNCM
--- NOTE | 2019-05-26 10:15 | RAD_ITS ---
STUDY: X-RAY CHEST REASON FOR EXAM: Female, 84 years old. Cough TECHNIQUE: Single AP portable view of the chest. COMPARISON: 05/22/2019 FINDINGS: Interval removal of endotracheal tube and nasogastric tube. The lungs are clear and expanded. There is no demonstrated pleural abnormality. Normal size heart. Normal mediastinum and kishor. Normal visualized pulmonary arteries. Normal visualized aortic arch and descending thoracic aorta. Normal visualized thoracic spine. Normal visualized ribs, clavicles, and shoulders. There is no demonstrated abnormality of the visualized soft tissue structures of the upper abdomen. RAD/Chest 1 View (Portable) IMPRESSION: Normal x-ray examination of the chest. Electronically Signed: Shahram Kelley MD at 11:18 EDT Tel , Service support ,
[2019-05-26] MEDS: Morphine 2 MG/ML Syringe IV (11:50)
[2019-05-26] MEDS: levoFLOXacin IV 250 MG/50 ML BAG 50 MG IV (11:54)
--- NOTE | 2019-05-26 12:00 | NURSING ---
Dr. Richards present in pt room, see her note re incision drainage. ning well by pt
[2019-05-26 12:16] LABS: Bedside Glucose 131 mg/dL (70-110)
[2019-05-26 16:15] LABS: Bedside Glucose 127 mg/dL (70-110)
[2019-05-26] MEDS: Atorvastatin Calcium 10 MG Tablet 5 MG PO (20:53)
[2019-05-26] MEDS: Losartan Potassium 100 MG Tablet PO (20:53)
[2019-05-26] MEDS: Latanoprost 0.005% 1 Bottle 1 DRP EACH EYE (20:54)
[2019-05-26] MEDS: amLODIPine 5 MG Tablet PO (20:54)
[2019-05-26 21:11] LABS: Bedside Glucose 173 mg/dL (70-110)
[2019-05-27] VITALS (15 sets, daily range): BP systolic 115–199; BP diastolic 34–73; PULSE 72–118; RESP 15–23; TEMP 36.2–36.9; O2SAT 96–99
--- NOTE | 2019-05-27 01:00 | NURSING ---
report received from [facility] and this RN resumed care at this time.
[2019-05-27 04:19] LABS: Absolute Lymphocyte Count 1.16 X10^3/uL (0.83-4.51); Basophil# 0.04 X10^3/uL; Basophil% 0.2 % (0-1); Eosinophil# 0.05 X10^3/uL; Eosinophils% 0.3 % (0-5); Hematocrit 32.2 % (37-47); Hemoglobin 10.4 g/dL (12.0-15.0); Lymphocyte # 1.16 X10^3/ul (4.0); Lymphocyte % 7.1 % (19-41); Mean Corp Hgb Conc 32.3 g/dL (32-36); Mean Corpuscular Volume 92.8 fL (81-99); Mean Platelet Vol. 9.2 fl (6.2-12.0); Monocyte# 0.71 X10^3/uL; Monocyte% 4.4 % (0-10); NRBC Flagged by Analyzer 0 % (0-5); Neutrophil # 14.02 X10^3/uL (2.7-7.7); Neutrophil % 86.5 % (47-70); Platelet Count 328 K/mm3 (150-450); RBC Distribution Width CV 13.4 % (11.6-14.6); RBC Distribution Width SD 46.1 fl (35.1-43.9); Red Blood Count 3.47 M/mm3 (4.2-5.4); White Blood Count 16.2 K/mm3 (4.4-11.0)
[2019-05-27] MEDS: Heparin Injection (Vial) 5,000 UNIT/ML VIAL 5000 UNIT SC ×3 (06:07→21:01)
[2019-05-27] MEDS: Insulin Lispro 100 UNIT/ML INSULN.PEN SC ×4 (07:44→21:02)
[2019-05-27 07:55] LABS: Bedside Glucose 175 mg/dL (70-110)
--- NOTE | 2019-05-27 08:40 | PCM.PN.SRG ---
Patient Problems: Active and Suspected Problems Small bowel obstruction (Acute) Dehydration (Acute) MERCEDES (acute kidney injury) (Acute) Hyponatremia (Acute) Hyperphosphatemia (Acute) Subjective: Patient seems short of breath with talking states has abdominal pain with movement, ambulated around ICU room - Physical Exam General: Alert, Oriented x3 Oral: Moist Mucosa Neck: Supple Lungs: Normal air movement Abdomen: Soft - positive bowel sounds, tender at incision site, dressing intact, wound opened yesterday Vital Signs Temp Pulse Resp BP Pulse Ox 97.4 F L 118 H 22 H 115/73 98 05/27/19 07:52 05/27/19 07:52 05/27/19 07:52 05/27/19 07:52 05/27/19 07:52 Oxygen Flow Rate (L/min) 2 Oxygen Delivery Method Room Air Weight: 61.1 kg Body Mass Index (BMI) 22.8 Finger Stick Blood Glucose 187 Intake and Output for Last 24 Hours 05/25/19 05/26/19 05/27/19 23:59 23:59 23:59 Intake Total 1043.27 / 1043.27 1300 / 1300 40 / 40 Output Total 1430 / 1430 800 / 800 200 / 200 Balance -386.73 / -386.73 500 / 500 -160 / -160 Microbiology Past 72 Hours 05/24/19 13:12 Gram Stain - Final Sputum, Induced/Lukens Respiratory Culture - Final Escherichia coli Laboratory Tests Past 24 Hrs 05/27/19 04:05 WBC 16.2 H RBC 3.47 L Hgb 10.4 L Hct 32.2 L MCV 92.8 MCH 30.0 MCHC 32.3 RDW Std Deviation 46.1 H RDW Coeff of Alanna 13.4 Plt Count 328 MPV 9.2 Immature Gran % (Auto) 1.500 H Neut % (Auto) 86.5 H Lymph % (Auto) 7.1 L [place] % (Auto) 4.4 Eos % (Auto) 0.3 Baso % (Auto) 0.2 Absolute Neuts (auto) 14.0 H Absolute Lymphs (auto) 1.16 Nucleated RBC % 0 POC Glucose 05/27/19 05/26/19 05/26/19 07:42 21:02 16:13 POC Glucose 175 H 173 H 127 H 05/26/19 05/26/19 12:04 08:50 POC Glucose 131 H 158 H Medical Necessity - Tobacco Use Smoking Status: Former smoker Tobacco Use: Non-smoker Assessment/Plan All Active Problems Small bowel obstruction (Acute) Dehydration (Acute) MERCEDES (acute kidney injury) (Acute) Hyponatremia (Acute) Hyperphosphatemia (Acute) POD#5 s/p small bowel resection for complete bowel obstruction due to adhesions wound infection Plan: has elevated WBC this morning - 16K but down from yesterday continue present therapy
--- NOTE | 2019-05-27 08:56 | CASEMGMT ---
Addendum entered by Willa Hui 05/27/19 11:51: SW spoke w/financial dept again, Medicare is primary, not [employer]. SW let [facility] in TCU know. She states pt can come whenever she is ready. SW will let pt and daughter know. NITIN Rasheed Addendum entered by Willa Hui 05/27/19 11:40: Paradise left SW a message stating that [employer] cannot verify this pt is a benefit member. SW called [employer], was informed that this is a supplemental plan. SW called financial services back, re-ran the [employer] number and it did come up as supplemental this time. She will look up the Medicare number once her computer unfreezes and will let this SW know if Medicare is indeed primary. NITIN Rasheed Addendum entered by Willa Hui 05/27/19 10:44: SW spoke w/[facility] in [facility], they can take pt and will start precert. SW let pt know that TCU can take her and will start precert. Pt agreeable to SW calling daughter to let her know. SW called daughter Aniyah, let her know that TCU can take her mother and that the TCU will start the precert process w/Matt. SW explained that as long as [employer] authorizes, pt will be able to go to TCU, and will let her know as soon as we hear anything from insurance. Daughter states understanding, thanked SW. Plan: TCU, pending precert. NITIN Rasheed Original Note: SW spoke w/pt and daughter in room in regard to discharge plan, home with home health vs. SNF. 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 Daughter states that TCU here would be their 1st choice. Pt agreeable to this if needed, pt reiterated TCU as the first choice and does not want to go to a SNF in the community. SW explained will call TCU and check on bed availability. Pt states her primary insurance is [employer], SW explained will check on this and if [employer] is primary the insurance will need to give authorization for pt to go there. SW explained will let pt and daughter know. SW called financial services, [employer] PPO is primary. The demographics will be fixed to reflect this, as currently it shows Medicare as primary. SW called the TCU referral line and left a message, inquiring if there is a bed available and if they can take pt, to let this SW know and precert can be started at [facility]a is primary. SW will continue to follow, awaiting a call back from TCU referral line. NITIN Rasheed
[2019-05-27] MEDS: 0.9% NaCl Peripheral Flush Adult/Peds IV ×2 (09:43→21:11)
[2019-05-27] MEDS: 0.9% NaCl IVPB Med Flush (250 mL) 15 ML IV (09:43)
[2019-05-27] MEDS: levoFLOXacin IV 250 MG/50 ML BAG 50 MG IV (09:45)
[2019-05-27] MEDS: Metoprolol Tartrate 100 MG Tablet 200 MG PO ×2 (09:45→21:01)
--- NOTE | 2019-05-27 10:40 | PN_ITS ---
Patient Problems: Active and Suspected Problems Small bowel obstruction (Acute) Dehydration (Acute) MERCEDES (acute kidney injury) (Acute) Hyponatremia (Acute) Hyperphosphatemia (Acute) Subjective: Seems to be doing well, has limited tenderness around the incision. Wounds are being packed by nursing staff and they appear clean. She states that she is breathing better and feels better. Vitals/I&O's: Vital Signs Temp Pulse Resp BP Pulse Ox 97.4 F L 117 H 22 H 140/34 H 98 05/27/19 07:52 05/27/19 09:45 05/27/19 07:52 05/27/19 09:45 05/27/19 07:52 Oxygen Flow Rate (L/min) 2 Oxygen Delivery Method Room Air Weight: 134 lb 11.239 oz Body Mass Index (BMI) 22.8 Finger Stick Blood Glucose 187 Intake and Output for Last 24 Hours 05/25/19 05/26/19 05/27/19 23:59 23:59 23:59 Intake Total 1043.27 / 1043.27 1300 / 1300 40 / 40 Output Total 1430 / 1430 800 / 800 200 / 200 Balance -386.73 / -386.73 500 / 500 -160 / -160 General: Alert, Oriented x3, Cooperative, No apparent distress HEENT: Atraumatic, PERRLA, EOMI, Normocephalic Neck: Supple, No JVD Lungs: Normal air movement, Diminished, CTAB Cardiovascular: Regular rate, Regular Rhythm, Normal S1, Normal S2, No murmurs Abdomen: Soft, Non Tender kept around incision, Non-Distended, No Hepato- splenomegaly Extremities: No edema, Capillary Refill Less than 3 Seconds Skin: No rashes, No breakdown, Incision - No signs of erythema or infection. Two areas of packing which are also not infected Neurological: Neuro grossly intact, Sensory exam intact to light touch and pain Psych/Mental Status: Normal Affect, Appropriate Microbiology Past 72 Hours 05/24/19 13:12 Sputum, Induced/Lukens Gram Stain - Final 05/24/19 13:12 Sputum, Induced/Lukens Respiratory Culture - Final Escherichia coli Laboratory Results 05/26/19 12:04: POC Glucose 131 H 05/26/19 16:13: POC Glucose 127 H 05/26/19 21:02: POC Glucose 173 H 05/27/19 04:05: WBC 16.2 H, RBC 3.47 L, Hgb 10.4 L, Hct 32.2 L, MCV 92.8, MCH 30.0, MCHC 32.3, RDW Std Deviation 46.1 H, RDW Coeff of Alanna 13.4, Plt Count 328, MPV 9.2, Immature Gran % (Auto) 1.500 H, Neut % (Auto) 86.5 H, Lymph % (Auto) 7.1 L, [place] % (Auto) 4.4, Eos % (Auto) 0.3, Baso % (Auto) 0.2, Absolute Neuts (auto) 14.0 H, Absolute Lymphs (auto) 1.16, Nucleated RBC % 0 05/27/19 07:42: POC Glucose 175 H Current Medications Albuterol Sulfate (Ventolin Aerosols) 2.5 mg INHALATION Q2H PRN PRN PRN Reason: WHEEZING Last Admin: 05/26/19 08:41 Dose: 2.5 mg Documented by: Amlodipine Besylate (Norvasc) 5 mg PO QHS JERILYN Last Admin: 05/26/19 20:54 Dose: 5 mg Documented by: Atorvastatin Calcium (Lipitor) 5 mg PO QHS JERILYN Last Admin: 05/26/19 20:53 Dose: 5 mg Documented by: Dextrose (D50w Syringe) 0 gm IV X1 PRN; Protocol PRN Reason: Hypoglycemia Glucagon () 1 mg IM .X1 PRN PRN Reason: Hypoglycemia Heparin Sodium (Porcine) (Heparin Na) 5,000 unit SC Q8 JERILYN Last Admin: 05/27/19 06:07 Dose: 5,000 unit Documented by: Hydralazine HCl (Apresoline Iv) 10 mg IV Q4H PRN PRN PRN Reason: sys>150 DIAST>80 Last Admin: 05/26/19 16:02 Dose: 10 mg Documented by: Famotidine 20 mg/ Sodium (Chloride) 10 mls @ 300 mls/hr IV Q12 JERILYN Last Admin: 05/27/19 09:44 Dose: 300 mls/hr Documented by: Sodium Chloride () 250 mls @ 15 mls/hr IV .[id number] PRN PRN Reason: SALINE FLUSH Last Admin: 05/27/19 09:43 Dose: 15 mls/hr Documented by: Levofloxacin (Levaquin Iv) 250 mg in 50 mls @ 50 mls/hr IV Q24 [facility] Last Admin: 05/27/19 09:45 Dose: 50 mls/hr Documented by: Insulin Human Lispro (Humalog Kwikpen (Bkc)) 0 unit SC ACHS [facility]; Protocol Last Admin: 05/27/19 07:44 Dose: 1 units Documented by: Latanoprost (Xalatan Opthalmic) 1 drop EACH EYE QHS [facility] Last Admin: 05/26/19 20:54 Dose: 1 drop Documented by: Losartan Potassium (Cozaar) 100 mg PO QHS [facility] Last Admin: 05/26/19 20:53 Dose: 100 mg Documented by: Metoprolol Tartrate (Lopressor (Beta Sudheer)) 200 mg PO BID [facility] Last Admin: 05/27/19 09:45 Dose: 200 mg Documented by: Ondansetron HCl (Zofran) 4 mg IV Q8H PRN PRN PRN Reason: NAUSEA/VOMITING Oxycodone HCl (Oxyir) 5 mg PO Q4H PRN PRN PRN Reason: Pain Score 6-10/10 Last Admin: 05/26/19 08:16 Dose: 5 mg Documented by: Promethazine HCl (Phenergan) 6.25 mg IV Q6H PRN PRN PRN Reason: NAUSEA/VOMITING Senna/Docusate Sodium (Senokot-S, Miracle-Colace) 1 tablet PO BID PRN PRN PRN Reason: CONSTIPATION Sodium Chloride () 10 - 40 ml IV UD PRN PRN Reason: SALINE FLUSH Last Admin: 05/27/19 09:43 Dose: 10 ml Documented by: Medical Necessity - Tobacco Use Smoking Status: Former smoker Tobacco Use: Non-smoker Assessment/Plan All Active Problems Small bowel obstruction (Acute) Dehydration (Acute) MERCEDES (acute kidney injury) (Acute) Hyponatremia (Acute) Hyperphosphatemia (Acute) 1. Small bowel obstruction/hyponatremia and MERCEDES secondary to dehydration/acute respiratory failure-resolved -She had an exploratory laparotomy on 05/22/2019 -Extubated this 05/25/2019 -Hyponatremia has resolved and her renal function is back to her baseline. -Continue with IV fluids -Appreciate surgical assistance -CT of the abdomen was unremarkable, WBC down to 16 and she is afebrile -Sputum culture with E. coli, likely aspiration event we will continue levaquin, no signs of pneumonia -Metabolic acidosis is improving 2. DM 2 -We will hold metformin and glimepiride -Continue with sliding scale insulin and Accu-Cheks 3. HTN/HLD -Blood pressure this morning is high but her heart rate is more controlled into the high 90s low 100s -Continue with her home blood pressure medications -Continue with hydralazine as needed 4. Glaucoma -Stable -Continue with latanoprost DVT: Heparin Code Visit Inpatient E&M: 93262 Subs Hosp L2
[2019-05-27 12:01] LABS: Bedside Glucose 195 mg/dL (70-110)
--- NOTE | 2019-05-27 13:17 | CASEMGMT ---
SW spoke w/pt and daughter both in room. SW explained that Medicare is primary for insurance, and [employer] is supplemental. SW educated pt and daughter that pt can go to TCU whenever she is medically ready. Both state understanding. Daughter then spoke about taking time off work, and that her bosses are giving her a hard time about it. SW spoke w/daughter about FMLA and suggested she bring this up to her bosses. SW printed some information regarding FMLA from the [place] [employer] and gave to daughter. It is this SW's understanding, based on the criteria outlined in the document that daughter would qualify. SW encouraged her to speak w/her boss about it and if he does not want to assist her with this she should speak with human resources at her job. Daughter states understanding and plans to follow up w/her boss tomorrow. Daughter thanked LOLITA for the information and support. NITIN Rashede
[2019-05-27 17:06] LABS: Bedside Glucose 165 mg/dL (70-110)
[2019-05-27] MEDS: Atorvastatin Calcium 10 MG Tablet 5 MG PO (21:01)
[2019-05-27] MEDS: amLODIPine 5 MG Tablet PO (21:01)
[2019-05-27] MEDS: Losartan Potassium 100 MG Tablet PO (21:01)
[2019-05-27] MEDS: Latanoprost 0.005% 1 Bottle 1 DRP EACH EYE (21:02)
[2019-05-27] MEDS: oxyCODONE 5 MG Tablet PO (21:13)
[2019-05-27 21:16] LABS: Bedside Glucose 162 mg/dL (70-110)
[2019-05-28] VITALS (8 sets, daily range): BP systolic 132–176; BP diastolic 34–84; PULSE 77–111; RESP 14–23; TEMP 36.2–36.8; O2SAT 96–99
[2019-05-28] MEDS: Heparin Injection (Vial) 5,000 UNIT/ML VIAL 5000 UNIT SC (04:45)
[2019-05-28 04:52] LABS: Absolute Lymphocyte Count 0.99 X10^3/uL (0.83-4.51); Absolute Neutrophil Count 12.1 X10^3/uL (2.0-7.7); Basophil# 0.05 X10^3/uL; Basophil% 0.4 % (0-1); Eosinophil# 0.07 X10^3/uL; Eosinophils% 0.5 % (0-5); Hematocrit 34.8 % (37-47); Hemoglobin 11.1 g/dL (12.0-15.0); Lymphocyte # 0.99 X10^3/ul (4.0); Lymphocyte % 7.1 % (19-41); Mean Corp Hgb Conc 31.9 g/dL (32-36); Mean Corpuscular Hgb 30.1 pg (27.0-32.0); Mean Corpuscular Volume 94.3 fL (81-99); Mean Platelet Vol. 9.2 fl (6.2-12.0); NRBC Flagged by Analyzer 0 % (0-5); Neutrophil # 12.05 X10^3/uL (2.7-7.7); Neutrophil % 85.7 % (47-70); Platelet Count 329 K/mm3 (150-450); RBC Distribution Width CV 13.4 % (11.6-14.6); RBC Distribution Width SD 46.4 fl (35.1-43.9); Red Blood Count 3.69 M/mm3 (4.2-5.4)
[2019-05-28 07:05] LABS: Bedside Glucose 179 mg/dL (70-110)
[2019-05-28] MEDS: Insulin Lispro 100 UNIT/ML INSULN.PEN SC ×2 (08:44→12:03)
[2019-05-28] MEDS: Metoprolol Tartrate 100 MG Tablet 200 MG PO (10:24)
[2019-05-28] MEDS: levoFLOXacin IV 250 MG/50 ML BAG 50 MG IV (10:29)
--- NOTE | 2019-05-28 10:44 | PCM.TXEXTCAR ---
- Diet 05/26/19 12:22 Diet: Regular Diet Food consistency:: Soft Liquid Consistency:: Regular/Thin Is pt able to select menu?: Yes - Wound(s) abdomen Wound Type: Surgical Incision - Therapies Physical Therapy: Eval and Treat Occupational Therapy: Eval and Treat - Allergies/Procedures Done in Hospital Allergies/Adverse Reactions: Allergies betaxolol [From Betoptic] Allergy (Verified 05/22/19 07:52) Itching brimonidine [From Alphagan P] Allergy (Verified 05/22/19 07:52) Itching cephalexin [From Keflex] Allergy (Verified 05/22/19 07:52) Rash nabumetone [From Relafen] Allergy (Verified 05/22/19 07:52) Rash - Type of Care/Length of Stay Estimated LOS: Convalescent Care Less Than 30 days Type of Care Needed: Skilled Rehab Potential: Good Prognosis: Good - Additional Orders/Day of Discharge Day of Discharge: 05/28/19 - Dietary and Speech Recommendations Dietitian Recommendations/Changes: Small portions per pt request. Continue po supplements w/ meals per pt request. - Follow Up Care Primary Care Physician: Claire Sharif MD [Primary Care Provider] - Please follow up with your Primary Care Physician in: 3-5 days Please Follow Up With: Viktoriya Richards MD When: 2-4 weeks
--- NOTE | 2019-05-28 10:47 | CASEMGMT ---
Addendum entered by Willa Hui 05/28/19 11:32: Dr. Motta is completing the discharge instructions, SW did fax the med list to TCU. SW spoke w/pt and daughter, confirmed the plan to pt and daughter for TCU today--as pt was a bit confused on the plan. SW also explained the Medicare [place] [facility] benefit to pt and daughter. RN and escrow secretary aware that once the transfer to extended care is complete they can call for pt to go to TCU. No further social work needs anticipated at this time. NITIN Rasheed Original Note: As per RN, pt is ready for discharge to TCU today. SW spoke w/[facility], confirmed they have a bed for pt in TCU. Once discharge instructions are completed and pt is discharged, she can be transferred to TCU. NITIN Rasheed
--- NOTE | 2019-05-28 11:09 | PCM.PN.SRG ---
Patient Problems: Active and Suspected Problems Small bowel obstruction (Acute) Dehydration (Acute) MERCEDES (acute kidney injury) (Acute) Hyponatremia (Acute) Hyperphosphatemia (Acute) Subjective: patient doing well, passing flatus - has had bowel movements denies abdominal pain when lying still, only with movement - tolerating pain meds - Physical Exam General: Alert, Oriented x3 Oral: Moist Mucosa Abdomen: Soft - two small opening wounds - granulating well, minimal drainage Vital Signs Temp Pulse Resp BP Pulse Ox 97.7 F L 111 H 19 H 151/34 H 97 05/28/19 04:51 05/28/19 10:24 05/28/19 04:51 05/28/19 10:24 05/28/19 07:28 Oxygen Flow Rate (L/min) 2 Oxygen Delivery Method Room Air Weight: 59.3 kg Body Mass Index (BMI) 22.8 Finger Stick Blood Glucose 187 Intake and Output for Last 24 Hours 05/26/19 05/27/19 05/28/19 23:59 23:59 23:59 Intake Total 1300 / 1300 454.25 / 454.25 60 / 60 Output Total 800 / 800 600 / 600 250 / 250 Balance 500 / 500 -145.75 / -145.75 -190 / -190 Microbiology Past 72 Hours 05/24/19 13:12 Gram Stain - Final Sputum, Induced/Lukens Respiratory Culture - Final Escherichia coli Laboratory Tests Past 24 Hrs 05/28/19 04:40 WBC 14.0 H RBC 3.69 L Hgb 11.1 L Hct 34.8 L MCV 94.3 MCH 30.1 MCHC 31.9 L RDW Std Deviation 46.4 H RDW Coeff of Alanna 13.4 Plt Count 329 MPV 9.2 Immature Gran % (Auto) 1.300 H Neut % (Auto) 85.7 H Lymph % (Auto) 7.1 L [place] % (Auto) 5.0 Eos % (Auto) 0.5 Baso % (Auto) 0.4 Absolute Neuts (auto) 12.1 H Absolute Lymphs (auto) 0.99 Nucleated RBC % 0 POC Glucose 05/28/19 05/27/19 05/27/19 06:59 20:59 16:53 POC Glucose 179 H 162 H 165 H 05/27/19 11:44 POC Glucose 195 H Medical Necessity - Tobacco Use Smoking Status: Former smoker Tobacco Use: Non-smoker Assessment/Plan All Active Problems Small bowel obstruction (Acute) Dehydration (Acute) MERCEDES (acute kidney injury) (Acute) Hyponatremia (Acute) Hyperphosphatemia (Acute) POD#6 s/p small bowel resection for complete bowel obstruction due to adhesions wound infection Plan: patient is going to be transferred to TCU I will continue follow up with patient there
--- NOTE | 2019-05-28 11:31 | DS.PCM_ITS ---
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 Transition point is difficult to identify due to lack of oral contrast however likely within the right lower quadrant. The distal ileum is decompressed. There is a small amount of free intra-abdominal fluid. Circumferential wall thickening of the visualized distal esophagus. Further evaluation with endoscopy may be of value. CT Abd: IMPRESSION: Small bowel obstruction with the transition point in the right lower quadrant. The oral contrast has progressed into the mid small bowel, but not beyond the transition point. A follow-up examination can be considered to assess for further passage of the contrast. Thickened loops of small bowel in right lower quadrant, consistent with enteritis. Moderate amount of free fluid. No free air. No fluid collection identified on this noncontrast study. CT Abd: IMPRESSION: 1. Recent abdominal surgery for treatment of small bowel obstruction with a suture line at the distal ileum and some mildly dilated small bowel but normal progression of oral contrast and no transition point to suggest bowel obstruction. 2. Volume overload with small right pleural effusion, small amount of ascites, and anasarca. Date of Procedure: 05/22/19 Pre-Operative Diagnosis: small bowel obstruction - complete Post-Operative Diagnosis: small bowel obstruction, complete, due to adhesions, compromised segment of small bowel Surgery/Procedure Performed:: exploratory laparotomy, lysis of adhesions, small bowel enterectomy Description of Surgical Findings:: segment of small bowel compromised - closed loop obstruction due to adhesions in the lower abdomen - 10 inches resected - jejunum Type of Anesthesia:: General Anesthesiologist: Deja Dao Specimen's removed: small bowel - jejunum Estimated Blood Loss (mL): 20 ml Fluids Replaced: 1000 ml RL Consults: General Surgery ICU Operations: None, - - Exploratory laparotomy Procedures: None Summary of Care Provided: Per HPI: The patient is a 84 year old F with a PMH of DM II, HTN, glaucoma and HLD who presented to the emergency department at [facility] on 05/22/2019 complaining of a 4-day history of nausea, vomiting, abdominal pain. Her abdomen has been distended. She is not passing flatus and has not had a bowel movement for several days. She has had an Appy in the past. Denies any hx of bowel obstruction. She feels weak. She denies fever/chills. Vital signs at presentation to the emergency room were temperature 98.3, pulse rate 85, blood pressure 174/66, respiratory rate 16 and she is 97% saturated on room air. CBC shows a normal white blood cell count at 6.9 with an unremarkable d ifferential. Hemoglobin is 14.6 and platelets are 428,000. Sodium was low at 130 and the chloride is low at 94. The BUN is 52 with a creatinine of 1.37, the last creatinine on record was 0.97. The BUN/creatinine ratio is markedly elevated at 38. Phosphorus is elevated at 5.3 and the magnesium is borderline low at 1.6. LFTs are unremarkable. A UA showed an increased specific gravity 1.025 with 0-5 RBCs and 0-5 WBCs. There was 1+ bacteria. CT scan of the abdomen and pelvis showed a couple dilated fluid-filled loops of small bowel throughout the central abdomen with a transition point likely within the right lower quadrant area there was circumferential wall thickening of the visualized distal esophagus. An NG was placed in the Ed and she was admitted to the hospital with a dx of SBO. Hospital Course: 1. Small bowel obstruction/hyponatremia and MERCEDES secondary to dehydration/acute respiratory failure?[id number]-old female presented to the ER with 4-day history of nausea, vomiting, abdominal pain. She had a CT scan which was demonstrating a small bowel obstruction, and therefore she had surgery same day of admission. After surgery she was intubated and transferred to the ICU. She had some difficulty being extubated because every time she had a weaning trial she would get very nervous and become tachypneic. She was finally extubated on 05/25/2029 since. Her sputum cultures did come back with E. coli though she has no demonstrated pneumonia and therefore she was placed on just 5 days of Levaquin is more of a prophylaxis than anything. Her pain has been well controlled after surgery with oxycodone and she is tolerating a diet with flatus and bowel movements. She was cleared for discharge to the transitional care unit today by general surgery who states that they will follow her up there as well. After her initial CT scan she had a third CT scan after surgery because of an elevated white count, this did not demonstrate any intra-abdominal abscess and her white count has steadily decreased on the day of discharge was 14. Plan will be for discharge to transitional care unit for rehab prior to discharge home. 2. HTN/HLD-she is on losartan, Norvasc, metoprolol at home for blood pressure control, she was unable to have any blood pressure medications prior to surgery and while she was intubated, and therefore she had an elevated heart rate as well as elevated blood pressures occasionally into the 200s. Since she has been extubated and has been tolerating p.o. her blood pressure medications at home were restarted, and now her average blood pressures in the 150s with the heart rates in the 90s to low 100s. Would recommend monitoring to TCU and making adjustments over time, there is room to increase her Norvasc. She is also on her metoprolol 200 mg p.o. twice daily to control her heart rate as well. 3. Her other medical diagnoses were evaluated and her home medications were continued where appropriate and when able Patient Problems: Active and Suspected Problems Small bowel obstruction (Acute) Dehydration (Acute) MERCEDES (acute kidney injury) (Acute) Hyponatremia (Acute) Hyperphosphatemia (Acute) Objective: General: Alert, Oriented x3, Cooperative, No apparent distress HEENT: Atraumatic, PERRLA, EOMI, Normocephalic Neck: Supple, No JVD Lungs: Normal air movement, Diminished, CTAB Cardiovascular: Tachycardic, Regular Rhythm, Normal S1, Normal S2, No murmurs Abdomen: Soft, Non Tender kept around incision, Non-Distended, No Hepato- splenomegaly Extremities: No edema, Capillary Refill Less than 3 Seconds Skin: No rashes, No breakdown, Incision - No signs of erythema or infection. Two areas of packing which are also not infected Neurological: Neuro grossly intact, Sensory exam intact to light touch and pain Psych/Mental Status: Normal Affect, Appropriate - Physical Exam Vital Signs Temp Pulse Resp BP Pulse Ox 97.7 F L 111 H 19 H 151/34 H 97 05/28/19 04:51 05/28/19 10:24 05/28/19 04:51 05/28/19 10:24 05/28/19 07:28 Oxygen Flow Rate (L/min) 2 Oxygen Delivery Method Room Air Weight: 130 lb 11.746 oz Body Mass Index (BMI) 22.8 Finger Stick Blood Glucose 187 Intake and Output for Last 24 Hours 05/26/19 05/27/19 05/28/19 23:59 23:59 23:59 Intake Total 1300 / 1300 454.25 / 454.25 60 / 60 Output Total 800 / 800 600 / 600 250 / 250 Balance 500 / 500 -145.75 / -145.75 -190 / -190 Microbiology Past 72 Hours 05/24/19 13:12 Gram Stain - Final Sputum, Induced/Lukens Respiratory Culture - Final Escherichia coli Laboratory Tests Past 24 Hrs 05/28/19 04:40 WBC 14.0 H RBC 3.69 L Hgb 11.1 L Hct 34.8 L MCV 94.3 MCH 30.1 MCHC 31.9 L RDW Std Deviation 46.4 H RDW Coeff of Alanna 13.4 Plt Count 329 MPV 9.2 Immature Gran % (Auto) 1.300 H Neut % (Auto) 85.7 H Lymph % (Auto) 7.1 L [place] % (Auto) 5.0 Eos % (Auto) 0.5 Baso % (Auto) 0.4 Absolute Neuts (auto) 12.1 H Absolute Lymphs (auto) 0.99 Nucleated RBC % 0 POC Glucose 05/28/19 05/27/19 05/27/19 06:59 20:59 16:53 POC Glucose 179 H 162 H 165 H 05/27/19 11:44 POC Glucose 195 H Home Medications: Medications to take at Discharge Acetaminophen [Tylenol] 500 mg PO Q4H PRN PRN 04/04/17 Amlodipine Besylate [Norvasc] 2.5 mg PO QHS 04/04/17 Glimepiride [Amaryl] 1 mg PO BID 04/04/17 Latanoprost 0.005% [Xalatan Opthalmic] 1 drop EACH EYE QHS 04/04/17 Losartan Potassium 100 mg PO QHS 04/04/17 Metformin HCl 1,000 mg PO BID 04/04/17 Metoprolol Tartrate [Lopressor (beta mathew)] 200 mg PO BID 04/04/17 Simvastatin [Zocor] 10 mg PO QHS 04/04/17 Aspirin E.C. [Ecotrin] 81 mg PO DAILY@0800 #0 05/28/19 Oxycodone [Oxyir] 5 mg PO Q4H PRN PRN 2 Days #10 tab 05/28/19 levoFLOXacin tablet [Levaquin tablet] 250 mg PO DAILY #3 tab 05/28/19 Following Prescrptions Were Given to Patient: levoFLOXacin tablet [Levaquin tablet] 250 mg PO DAILY #3 tab Primary Care Physician: Claire Sharif MD [Primary Care Provider] - Please follow up with your Primary Care Physician in: 3-5 days Please Follow Up With: Viktoriya Richards MD When: 2-4 weeks Disposition: Snf facility Minutes spent on discharge:: 35 Patient Condition:: Stable Medical Necessity - Tobacco Use Smoking Status: Former smoker Tobacco Use: Non-smoker Meaningful Use Info Meaningful Use Diagnoses (Choose all that apply): None applicable Code Visit Inpatient E&M: 55391 Disch Hosp
== END 2019-05-28 13:00 | disposition skilled nursing facility (03) | DRG 329 ==
LOC: ED 06:22 → MS3 06:47 → ICU 17:02
PROVIDERS: Internal Medicine Critical Care Medicine; Surgery; Admitting Provider Internal Medicine; Emergency Provider Emergency Medicine; Family Provider Internal Medicine; PCP Internal Medicine; Visit Provider Family Medicine
PROC: 0DN80ZZ Release Small Intestine, Open Approach (ICD-10-PCS; CPT 49000; principal; 2019-05-22 14:30)
DX: K56.52 Intestinal adhesions [bands] with complete obstruction (principal); J96.00 Acute respiratory failure, unspecified whether with hypoxia or hypercapnia; N17.9 Acute kidney failure, unspecified; E87.1 Hypo-osmolality and hyponatremia; E86.0 Dehydration; H40.9 Unspecified glaucoma; E11.9 Type 2 diabetes mellitus without complications; E78.5 Hyperlipidemia, unspecified; I10 Essential (primary) hypertension; Z79.84 Long term (current) use of oral hypoglycemic drugs; F17.201 Nicotine dependence, unspecified, in remission; E83.39 Other disorders of phosphorus metabolism
CPT/HCPCS: 31720; 36600; 71045; 74018; 74176; 74177; 80048; 80076; 81001; 82550; 82803; 82962; 83605; 83690; 83735; 84100; 84478; 85014; 85018; 85025; 87070; 87077; 87186; 87205; 88307; 92526; 92610; 93005; 94002; 94003; 94640; 94660; 94667; 94668; 95831; 97162; 97166; 97530; 97535; 97802; 99285; J7030; J7050; Q9967; A4216; J2405; J3490

== ENCOUNTER 2019-05-28 13:07 | Inpatient (IN) | payer MEDICARE, OTHER, SELFPAY ==
[2019-05-22 14:20] VITALS: BMI 22.8
[2019-05-28 13:24] VITALS: BP 162/67; PULSE 88; RESP 18; TEMP 36.7; O2SAT 97; BMI 24.5
--- NOTE | 2019-05-28 13:54 | HP.PCM_ITS ---
Problem List (1) Debility Status: Acute (2) Nausea and vomiting Status: Acute (3) Aspiration pneumonia Status: Acute (4) Glaucoma Status: Chronic (5) Small bowel obstruction Status: Acute (6) Dehydration Status: Acute (7) MERCEDES (acute kidney injury) Status: Acute (8) Hyponatremia Status: Acute (9) Diabetes Status: Chronic (10) Hypertension Status: Chronic Qualifiers: (11) Hyperlipidemia Status: Chronic History of Present Illness Date of Admission: 05/28/19 Chief Complaint: Here for rehabilitation, strengthening, prior to discharge home with family. The patient is a 84 year old Female with below past medical history presented to [facility] Emergency Department 05/22/2019 with nausea, vomiting. 05/22/2019 CT abdomen/pelvis showed small bowel obstruction, transition right lower quadrant, Enteritis, moderate ascites. 05/22/2019 X-ray of abdomen, NG in gastric fundus, small bowel dilatation. Nausea/vomiting x 3 to 4 days, abdominal pain, chills, sweats. CBCD okay, sodium 130, BUn 52, Cr 1.39, Glucose 231. Zofran, IV fluids for small bowel obstruction, consult Dr. Viktoriya Richards. 05/22/2019 Admit to Hospital. NG to low intermittent suction, Pepcid 20MG IV twice daily for small bowel obstruction. 05/22/2019 Dr. Richards performed exploratory laparotomy, lysis of adhesions, small bowel enterectomy, 10 inches jejunum removed. Weak after surgery, reintubated. IV fluid bolus for low blood pressure. 05/23/2019 Dr. Valerio recommended Propofol transition to Precedex. 05/24/2019 Intubated in the ICU. Hyponatremia back to baseline. Sliding scale insulin for diabetes. Hold blood pressure medications. 05/25/2019 Extubated. Restart medications if passes dysphagia screen. 05/26/2019 CT Abdomen/pelvis, small bowel obstruction improved, small right pleural effusion. Small amount ascites, anasarca. 05/26/2019 Chest X-ray normal. 05/27/2019 Sputum growing E. Coli, Levaquin for aspiration pneumonia. Pain controlled with oxycodone. Blood pressure medications working well. 05/28/2019 Admit to TCU with debility, here for rehabilitation, strengthening, prior to discharge home with family. Past Medical History Past Medical History (Chronic Problems): Chronic Problems Tobacco dependence in remission (Chronic) Glaucoma (Chronic) Vertigo (Chronic) Diabetes (Chronic) Hypertension (Chronic) Hyperlipidemia (Chronic) Allergies betaxolol [From Betoptic] Allergy (Verified 05/22/19 07:52) Itching brimonidine [From Alphagan P] Allergy (Verified 05/22/19 07:52) Itching cephalexin [From Keflex] Allergy (Verified 05/22/19 07:52) Rash nabumetone [From Relafen] Allergy (Verified 05/22/19 07:52) Rash Home Medications: Ambulatory Orders Medication Instructions Recorded Acetaminophen [Tylenol] 500 mg PO Q4H PRN PRN 04/04/17 Amlodipine Besylate [Norvasc] 2.5 mg PO QHS 04/04/17 Glimepiride [Amaryl] 1 mg PO BID 04/04/17 Latanoprost 0.005% [Xalatan 1 drop EACH EYE QHS 04/04/17 Opthalmic] Losartan Potassium 100 mg PO QHS 04/04/17 Metformin HCl 1,000 mg PO BID 04/04/17 Metoprolol Tartrate [Lopressor 200 mg PO BID 04/04/17 (beta mathew)] Simvastatin [Zocor] 10 mg PO QHS 04/04/17 Aspirin E.C. [Ecotrin] 81 mg PO DAILY@0800 #0 05/28/19 Oxycodone [Oxyir] 5 mg PO Q4H PRN PRN 2 Days #10 tab 05/28/19 levoFLOXacin tablet [Levaquin 250 mg PO DAILY #3 tab 05/28/19 tablet] Surgical History: appendectomy, - - Left oophorectomy Psychiatric History: No pertinent psych hx [employer] History: No pertinent [employer] history, - - has had her left ovary removed Lives: With Family Smoking Status: Former smoker Tobacco Use: Non-smoker Alcohol: Rare Drugs: None - *Family History Maternal History Items: Cancer, Diabetes Review of Systems Constitutional: Denies: Chills, Fever, Weight Change HEENT: Denies: Head Aches, Sinus Congestion, Sinus Drainage Cardiovascular: Denies: Chest Pain, Palpitations Respiratory: Denies: Cough, Shortness of breath at rest, Sputum production Gastrointestinal: Denies: Abdominal Pain, Nausea, Vomiting Genitourinary: Denies: Dysuria Musculoskeletal: Denies: Joint Pain, Joint Tenderness Skin: Denies: Rash, Wounds Neurological: Denies: Numbness, Tingling, Focal weakness Psychiatric: Denies: Anxiety, Depression, Homicidal Ideations, Suicidal Ideations Hematologic/ Lymphatic: Denies: Easy Bruising, Easy Bleeding VTE Information - Inpt Only VTE Present on Admission: No VTE Mechan Device Prophylaxis: Knee High BRITTANY Hose VTE Pharm Prophylaxis ordered?: Yes Patient Problems: Active and Suspected Problems Debility (Acute) Nausea and vomiting (Acute) Aspiration pneumonia (Acute) - Physical Exam General: Alert, Oriented x3, Cooperative HEENT: Atraumatic, PERRLA, EOMI, Normocephalic Neck: Supple, No JVD, Negative Carotid Bruits Lungs: Clear to auscultation, Normal air movement, Wheezes - Scattered. Cardiovascular: Regular rate, No murmurs Abdomen: Bowel Sounds Present, Soft, Non Tender Extremities: No edema, Capillary Refill Less than 3 Seconds Skin: No rashes, No breakdown, Incision - Right lower abdomen, incision open superiorly, inferiorly, wet to dry packing. Musculoskeletal: No Tenderness to Palpation of Joints or Extremities Neurological: Cranial nerves II-XII grossly intact Psych/Mental Status: Normal Affect, Appropriate Body Mass Index (BMI) 22.8 Finger Stick Blood Glucose 187 Assessment/Plan All Active Problems Small bowel obstruction (Acute) Dehydration (Acute) MERCEDES (acute kidney injury) (Acute) Hyponatremia (Acute) Hyperphosphatemia (Acute) Debility (Acute) Nausea and vomiting (Acute) Aspiration pneumonia (Acute) 84 year old female with below past medical history hospitalized for small bowel obstruction, underwent exploratory laparotomy, lysis of adhesions, jejunum enterectomy per Dr. Richards 05/22/2019, complicated by difficulty extubation, hypotension, aspiration, admitted to TCU with debility, here for rehabilitation, strengthening, prior to discharge home with family. * Debility - PT/OT. * Pain - Tylenol 1000MG Q6H PRN pain (1-3), Oxycodone 5MG Q4H PRN pain (4-10). * Bowel - Miralax 17GM daily, Senna/colace 1 tablet BID, Dulcolax 10MG daily PRN. * Pneumonia vaccination - Administer Prevnar 13 and/or Pneumovax 23 as necessary. * DVT prophylaxis - Lovenox 40MG SC daily. * Hypertension - Metoprolol 200MG BID, Losartan 100MG QHS, Amlodipine 2.5MG QHS. * Diabetes Mellitus II - Metformin 1000MG BID, Glimepiride 1MG BID. * Glaucoma - Xalatan 1GTT OU QHS. * Hyperlipidemia - Simvastatin 10MG QHS. * CV prophylaxis - Aspirin 81MG daily. * Aspiration pneumonitis - Levaquin 250MG daily x 3 days. * Small Bowel Obstruction - Dr. Richards following.
[2019-05-28 16:00] VITALS: BP 162/67; PULSE 88; RESP 18; TEMP 36.7; O2SAT 97
[2019-05-28 17:31] VITALS: BP 162/67; PULSE 88
[2019-05-28] MEDS: Metoprolol Tartrate 100 MG Tablet 200 MG PO (17:31)
[2019-05-28] MEDS: Senna/Docusate Sodium 1 Tablet PO (17:31)
[2019-05-28] MEDS: metFORMIN HCl 1,000 MG Tablet 1000 MG PO (17:31)
[2019-05-28] MEDS: amLODIPine 2.5 MG Tablet PO (20:37)
[2019-05-28] MEDS: Atorvastatin Calcium 10 MG Tablet 5 MG PO (20:37)
[2019-05-28] MEDS: Latanoprost 0.005% 1 Bottle 1 DRP OPHTHALMIC (20:37)
[2019-05-28] MEDS: Menthol/Lanolin/Calamine/Znox 113 GM Tube 1 APPLIC TOPICAL (20:40)
[2019-05-28] MEDS: oxyCODONE 5 MG Tablet PO (22:09)
[2019-05-29 06:39] VITALS: BP 179/72; PULSE 104
[2019-05-29] MEDS: Enoxaparin 40 MG/0.4 ML Syringe SC (06:39)
[2019-05-29] MEDS: Metoprolol Tartrate 100 MG Tablet 200 MG PO ×2 (06:39→18:01)
[2019-05-29] MEDS: Menthol/Lanolin/Calamine/Znox 113 GM Tube 1 APPLIC TOPICAL ×2 (06:44→21:39)
[2019-05-29 07:15] LABS: Absolute Lymphocyte Count 1.08 X10^3/uL (0.83-4.51); Absolute Neutrophil Count 9.9 X10^3/uL (2.0-7.7); Basophil# 0.02 X10^3/uL; Basophil% 0.2 % (0-1); Eosinophil# 0.03 X10^3/uL; Eosinophils% 0.3 % (0-5); Hematocrit 33.6 % (37-47); Hemoglobin 10.9 g/dL (12.0-15.0); Lymphocyte # 1.08 X10^3/ul (4.0); Lymphocyte % 9.2 % (19-41); Mean Corp Hgb Conc 32.4 g/dL (32-36); Mean Corpuscular Hgb 29.9 pg (27.0-32.0); Mean Corpuscular Volume 92.1 fL (81-99); Mean Platelet Vol. 9.2 fl (6.2-12.0); Monocyte% 5.1 % (0-10); NRBC Flagged by Analyzer 0 % (0-5); Neutrophil # 9.93 X10^3/uL (2.7-7.7); Neutrophil % 84.4 % (47-70); Platelet Count 357 K/mm3 (150-450); RBC Distribution Width CV 13.5 % (11.6-14.6); Red Blood Count 3.65 M/mm3 (4.2-5.4); White Blood Count 11.8 K/mm3 (4.4-11.0)
[2019-05-29 07:40] LABS: Anion Gap 8 (5-15); BUN 21 mg/dL (7-18); BUN/Creat Ratio 17.1 RATIO (10-20); Calcium,Total 9.2 mg/dL (8.5-10.1); Chloride 109 mmol/L (98-107); Creatinine, Serum 1.23 mg/dL (0.55-1.02); EST Glomerular Filtration Rate 44 mL/min (>60); Est Glom Filt Rate - Afr Amer 54 mL/min (>60); Estimated Creatinine Clearance 24.89 ml/min; Glucose 189 mg/dL (74-106); Sodium Level 141 mmol/L (136-145)
[2019-05-29] MEDS: metFORMIN HCl 1,000 MG Tablet 1000 MG PO ×2 (08:35→18:02)
[2019-05-29] MEDS: Aspirin 81 MG TAB.CHEW PO (08:35)
[2019-05-29] MEDS: Glimepiride 1 MG Tablet PO (08:35)
[2019-05-29] MEDS: oxyCODONE 5 MG Tablet PO (08:44)
[2019-05-29] MEDS: Tuberculin,Purif.prot.deriv. 50 TU/ML Vial 5 ML ID (10:07)
[2019-05-29] MEDS: levoFLOXacin 500 MG Tablet PO (10:07)
[2019-05-29 11:00] VITALS: PULSE 96; RESP 18; O2SAT 97
--- NOTE | 2019-05-29 11:12 | NURSING ---
THIS NURSE IN TO CHANGE PT DRESSING. ASKED JESUS COURTNEY TO ROOM TO LOOK AT WOUND. WOUND NURSE CONSULT PER JESUS COURTNEY WILL BE PUT IN.
[2019-05-29] MEDS: 0.9% Normal Saline 1,000 ML 60 ML IV (11:21)
[2019-05-29 16:00] VITALS: BP 148/64; PULSE 85; RESP 16; TEMP 36.1; O2SAT 99
[2019-05-29 18:01] VITALS: BP 148/64; PULSE 85
[2019-05-29] MEDS: Latanoprost 0.005% 1 Bottle 1 DRP OPHTHALMIC (21:38)
[2019-05-29] MEDS: amLODIPine 2.5 MG Tablet PO (21:40)
[2019-05-29] MEDS: Atorvastatin Calcium 10 MG Tablet 5 MG PO (21:41)
[2019-05-29] MEDS: Losartan Potassium 50 MG Tablet 100 MG PO (21:41)
[2019-05-30] MEDS: 0.9% Normal Saline 1,000 ML 60 ML IV ×2 (02:59→21:52)
[2019-05-30] MEDS: 0.9% NaCl Peripheral Flush Adult/Peds IV ×2 (02:59→03:00)
[2019-05-30] MEDS: Menthol/Lanolin/Calamine/Znox 113 GM Tube 1 APPLIC TOPICAL ×2 (05:49→21:04)
[2019-05-30 05:56] VITALS: BP 189/68; PULSE 97
[2019-05-30] MEDS: Metoprolol Tartrate 100 MG Tablet 200 MG PO ×2 (05:56→18:16)
--- NOTE | 2019-05-30 06:54 | NURSING ---
This nurse attempted new IV twice and was unsuccessful. Other RN also tried x 1. Museum Registrar notified to try to start IV.
[2019-05-30] MEDS: metFORMIN HCl 1,000 MG Tablet 1000 MG PO ×2 (07:51→18:17)
[2019-05-30] MEDS: Aspirin 81 MG TAB.CHEW PO (07:51)
[2019-05-30] MEDS: Glimepiride 1 MG Tablet PO (07:51)
[2019-05-30 08:28] LABS: BUN 19 mg/dL (7-18); BUN/Creat Ratio 17.8 RATIO (10-20); Calcium,Total 8.4 mg/dL (8.5-10.1); Chloride 110 mmol/L (98-107); Creatinine, Serum 1.07 mg/dL (0.55-1.02); EST Glomerular Filtration Rate 52 mL/min (>60); Est Glom Filt Rate - Afr Amer 63 mL/min (>60); Estimated Creatinine Clearance 28.61 ml/min; Glucose 141 mg/dL (74-106); Potassium 3.3 mmol/L (3.5-5.1); Sodium Level 143 mmol/L (136-145)
[2019-05-30 08:29] LABS: Anion Gap 10 (5-15)
[2019-05-30] MEDS: Acetaminophen 500 MG Tablet 1000 MG PO (10:47)
[2019-05-30] MEDS: levoFLOXacin 500 MG Tablet PO (10:48)
--- NOTE | 2019-05-30 10:52 | NURSING ---
THIS NURSE CLEANED WOUND AND CHANGED PT DRESSING TO ABDOMINAL DUE TO MODERATE,CLEAR/YELLOW DRAINAGE. PT TOLERATED WELL.
[2019-05-30 11:27] LABS: Bedside Glucose 135 mg/dL (70-110)
--- NOTE | 2019-05-30 14:34 | PCM.PN.SRG ---
Patient Problems: Active and Suspected Problems Debility (Acute) Nausea and vomiting (Acute) Aspiration pneumonia (Acute) Subjective: Patient tolerating regular diet Denies abdominal pain except with movement but decreasing passing flatus and having bowel movements - Physical Exam General: Alert, Oriented x3 Oral: Moist Mucosa Neck: Supple Abdomen: Soft - wound intact - with two openings with granulation tissue - minimal drainage Vital Signs Temp Pulse Resp BP Pulse Ox 97 F L 97 16 189/68 H 99 05/29/19 16:00 05/30/19 05:56 05/29/19 16:00 05/30/19 05:56 05/29/19 16:00 Oxygen Delivery Method Room Air Weight: 56.8 kg Body Mass Index (BMI) 22.8 Finger Stick Blood Glucose 187 Intake and Output for Last 24 Hours 05/28/19 05/29/19 05/30/19 23:59 23:59 23:59 Intake Total 120 / 120 1349 / 1349 790 / 790 Balance 120 / 120 1349 / 1349 790 / 790 Laboratory Tests Past 24 Hrs 05/30/19 07:20 Sodium 143 Potassium 3.3 L Chloride 110 H Carbon Dioxide 23.0 Anion Gap 10 BUN 19 H Creatinine 1.07 H Estim Creat Clear Calc 28.61 Est GFR (MDRD) Af Amer 63 Est GFR (MDRD) Non-Af 52 L BUN/Creatinine Ratio 17.8 Glucose 141 H Calcium 8.4 L POC Glucose 05/30/19 06:23 POC Glucose 135 H Medical Necessity - Tobacco Use Smoking Status: Former smoker Tobacco Use: Non-smoker Assessment/Plan All Active Problems Small bowel obstruction (Acute) Dehydration (Acute) MERCEDES (acute kidney injury) (Acute) Hyponatremia (Acute) Hyperphosphatemia (Acute) Debility (Acute) Nausea and vomiting (Acute) Aspiration pneumonia (Acute) Impression: POD#8 - s/p small bowel obstruction for complete bowel obstruction Plan: patient in TCU for rehabilitation I will continue follow up of this wound - may consider DPC of wound prior to discharge
[2019-05-30 15:25] VITALS: BP 183/70; PULSE 92; RESP 18; TEMP 36.3; O2SAT 99
[2019-05-30 16:45] LABS: Bedside Glucose 105 mg/dL (70-110)
[2019-05-30 18:16] VITALS: BP 183/70; PULSE 92
[2019-05-30] MEDS: Atorvastatin Calcium 10 MG Tablet 5 MG PO (20:58)
[2019-05-30] MEDS: Losartan Potassium 50 MG Tablet 100 MG PO (20:58)
[2019-05-30] MEDS: amLODIPine 2.5 MG Tablet PO (20:59)
[2019-05-30] MEDS: Latanoprost 0.005% 1 Bottle 1 DRP OPHTHALMIC (21:00)
[2019-05-31] MEDS: Menthol/Lanolin/Calamine/Znox 113 GM Tube 1 APPLIC TOPICAL ×2 (04:56→20:17)
[2019-05-31 04:57] VITALS: BP 178/62; PULSE 95
[2019-05-31] MEDS: Metoprolol Tartrate 100 MG Tablet 200 MG PO ×2 (04:57→17:29)
[2019-05-31 06:11] LABS: Bedside Glucose 163 mg/dL (70-110)
[2019-05-31] MEDS: Glimepiride 1 MG Tablet PO (07:42)
[2019-05-31] MEDS: Aspirin 81 MG TAB.CHEW PO (07:42)
[2019-05-31] MEDS: metFORMIN HCl 1,000 MG Tablet 1000 MG PO (07:42)
--- NOTE | 2019-05-31 09:58 | NURSING ---
wound photo: abdomen
[2019-05-31] MEDS: levoFLOXacin 500 MG Tablet PO (10:30)
--- NOTE | 2019-05-31 13:32 | PHA.CONS_ITS ---
<Rossy Amor M - Last Filed: 05/31/19 13:32> Progress Note - Pharmacy Subjective: TCU ADMISSION Objective: Allergies betaxolol [From Betoptic] Allergy (Verified 05/22/19 07:52) Itching brimonidine [From Alphagan P] Allergy (Verified 05/22/19 07:52) Itching cephalexin [From Keflex] Allergy (Verified 05/22/19 07:52) Rash nabumetone [From Relafen] Allergy (Verified 05/22/19 07:52) Rash Current Medications Generic Name Dose Route Start Last Admin Trade Name Freq PRN Reason Stop Dose Admin Acetaminophen 1,000 mg 05/28/19 14:28 05/30/19 10:47 Tylenol PO 1,000 mg Q6H PRN Administration Pain Score 1-3/10 Amlodipine Besylate 2.5 mg 05/28/19 20:00 05/30/19 20:59 Norvasc PO 2.5 mg 2000 JERILYN Administration Aspirin 81 mg 05/29/19 08:00 05/31/19 07:42 Aspirin, Baby PO 81 mg DAILY@0800 JERILYN Administration Atorvastatin Calcium 5 mg 05/28/19 22:00 05/30/19 20:58 Lipitor PO 5 mg QHS JERILYN Administration Bisacodyl 10 mg 05/28/19 14:29 Dulcolax PO DAILY PRN Constipation Calamine/Phenol 1 applic 05/28/19 22:00 05/31/19 04:56 Calmoseptine Ointment TOPICAL 1 applicatio 0600,2200 JERILYN Administration Protocol Glimepiride 1 mg 05/29/19 08:00 05/31/19 07:42 Amaryl PO 1 mg DAILY@0800 JERILYN Administration Sodium Chloride 1,000 mls @ 60 mls/hr 05/29/19 09:15 05/30/19 21:52 IV 60 mls/hr .[id number] JERILYN Administration Latanoprost 1 drop 05/28/19 20:00 05/30/19 21:00 Xalatan Opthalmic OPHTHALMIC 1 drop 2000 JERILYN Administration Levofloxacin 500 mg 05/29/19 10:00 05/31/19 10:30 Levaquin Tablet PO 05/31/19 23:59 500 mg DAILY@1000 JERILYN Administration Losartan Potassium 100 mg 05/29/19 20:00 05/30/19 20:58 Cozaar PO 100 mg 2000 JERILYN Administration Metformin HCl 1,000 mg 05/28/19 17:00 05/31/19 07:42 Glucophage PO 1,000 mg BIDCM JERILYN Administration Metoprolol Tartrate 200 mg 05/28/19 18:00 05/31/19 04:57 Lopressor (Beta Sudheer) PO 200 mg BID JERILYN Administration Oxycodone HCl 5 mg 05/28/19 14:28 05/29/19 08:44 Oxyir PO 5 mg Q4H PRN PRN Administration Pain Score 4-1010 Polyethylene Glycol 17 gm 05/29/19 06:00 05/31/19 04:56 Miralax PO Not Given DAILY JERILYN Potassium Chloride 20 meq 05/30/19 17:00 05/31/19 07:44 K-Dur PO 20 meq BIDCM JERILYN Administration Senna/Docusate Sodium 1 tablet 05/28/19 18:00 05/31/19 04:56 Senokot-S, Miracle-Colace PO Not Given BID JERILYN Sodium Chloride 5 - 15 ml 05/30/19 02:25 05/30/19 03:00 IV 10 ml UD PRN Administration SALINE FLUSH Tuberculin PPD 5 tu 06/05/19 10:00 Tubersol, Aplisol, Ppd ID 06/05/19 10:01 X1 ONE Problem List Debility (Acute) Nausea and vomiting (Acute) Aspiration pneumonia (Acute) Glaucoma (Chronic) Vital Signs Temp Pulse Resp BP Pulse Ox 97.4 F L 95 18 178/62 H 99 05/30/19 15:25 05/31/19 04:57 05/30/19 15:25 05/31/19 04:57 05/30/19 15:25 Oxygen Delivery Method Room Air Weight: 56.8 kg Body Mass Index (BMI) 22.8 Finger Stick Blood Glucose 187 Sodium 143 mmol/L (136-145) 05/30/19 07:20 Potassium 3.3 mmol/L (3.5-5.1) L 05/30/19 07:20 Chloride 110 mmol/L (98-107) H 05/30/19 07:20 Carbon Dioxide 23.0 mmol/L (21.0-32.0) 05/30/19 07:20 Anion Gap 10 (5-15) 05/30/19 07:20 BUN 19 mg/dL (7-18) H 05/30/19 07:20 Creatinine 1.07 mg/dL (0.55-1.02) H 05/30/19 07:20 Est GFR (MDRD) Af Amer 63 mL/min (>60) 05/30/19 07:20 Est GFR (MDRD) Non-Af 52 mL/min (>60) L 05/30/19 07:20 BUN/Creatinine Ratio 17.8 RATIO (10-20) 05/30/19 07:20 Glucose 141 mg/dL (74-106) H 05/30/19 07:20 Assessment/Plan: 1. Pain: Tylenol 1000mg PO Q6h PRN Pain 1-11/01, OxyIR 5mg PO Q4h PRN pain 4- 06/03. Please continue to monitor for S/S of increased or decreased pain. 2. Hypertension: Amlodipine 2.5mg PO QHS, Losartan 100mg PO daily, metoprolol tartrate 200mg PO BID. Please continue to monitor blood pressure, pulse. *3. Diabetes Mellitus II: Glimepiride 1mg PO daily, Metformin 1000mg PO BIDCM. Please consider discontinuing metformin if clinically appropriate. The patient's CrCl is 28mL/min, metformin use in pt's with CrCl <30mL/min is contraindicated. 4. Glaucoma: Xalatan 1gtt ophthalmic QHS. Please continue to monitor for Signs/Symptoms of disease progression 5. Cardiovascular prophylaxis/ Hyperlipidemia: Atorvastatin 5mg PO QHS, Aspirin 81mg PO Daily CM. Please continue to monitor lipid panel, as well as for signs/symptoms of bleeding and bruising. 6. Aspiration pneumonitis: levofloxacin 250mg PO Daily thru 05/31/19. Please continue to monitor for improvement in symptoms. 7. Hypokalemia: Potassium Chloride 20mEq PO BIDCM. last K measured on 05/30/19 was 3.3, please continue to monitor K levels as appropriate to determine replacement needs. Psychotropic Medications: None Unnecessary Medications: None Bowel Regimen: Bisacodyl 10mg daily PRN, Miralax 17g PO daily, Senna/Docusate 1T PO BID. Please continue to monitor for signs/ symptoms of constipation or diarrhea. Date of Note:: 05/31/19 - Provider Comments Provider responsibility: Provider responsible to enter orders to implement recommendations <Huseyin Verma Chi - Last Filed: 05/31/19 17:06> Progress Note - Pharmacy Subjective: [] Objective: Allergies betaxolol [From Betoptic] Allergy (Verified 05/22/19 07:52) Itching brimonidine [From Alphagan P] Allergy (Verified 05/22/19 07:52) Itching cephalexin [From Keflex] Allergy (Verified 05/22/19 07:52) Rash nabumetone [From Relafen] Allergy (Verified 05/22/19 07:52) Rash Current Medications Generic Name Dose Route Start Last Admin Trade Name Freq PRN Reason Stop Dose Admin Acetaminophen 1,000 mg 05/28/19 14:28 05/30/19 10:47 Tylenol PO 1,000 mg Q6H PRN Administration Pain Score 1-3/10 Amlodipine Besylate 2.5 mg 05/28/19 20:00 05/30/19 20:59 Norvasc PO 2.5 mg 2000 JERILYN Administration Aspirin 81 mg 05/29/19 08:00 05/31/19 07:42 Aspirin, Baby PO 81 mg DAILY@0800 JERILYN Administration Atorvastatin Calcium 5 mg 05/28/19 22:00 05/30/19 20:58 Lipitor PO 5 mg QHS JERILYN Administration Bisacodyl 10 mg 05/28/19 14:29 Dulcolax PO DAILY PRN Constipation Calamine/Phenol 1 applic 05/28/19 22:00 05/31/19 04:56 Calmoseptine Ointment TOPICAL 1 applicatio 0600,2200 [facility] Administration Protocol Glimepiride 1 mg 05/29/19 08:00 05/31/19 07:42 Amaryl PO 1 mg DAILY@0800 JERILYN Administration Sodium Chloride 1,000 mls @ 60 mls/hr 05/29/19 09:15 05/31/19 14:44 IV 60 mls/hr .[id number] JERILYN Administration Latanoprost 1 drop 05/28/19 20:00 05/30/19 21:00 Xalatan Opthalmic OPHTHALMIC 1 drop 2000 JERILYN Administration Levofloxacin 500 mg 05/29/19 10:00 05/31/19 10:30 Levaquin Tablet PO 05/31/19 23:59 500 mg DAILY@1000 JERILYN Administration Losartan Potassium 100 mg 05/29/19 20:00 05/30/19 20:58 Cozaar PO 100 mg 2000 JERILYN Administration Metformin HCl 1,000 mg 05/28/19 17:00 05/31/19 07:42 Glucophage PO 1,000 mg BIDCM JERILYN Administration Metoprolol Tartrate 200 mg 05/28/19 18:00 05/31/19 04:57 Lopressor (Beta Sudheer) PO 200 mg BID JERILYN Administration Oxycodone HCl 5 mg 05/28/19 14:28 05/29/19 08:44 Oxyir PO 5 mg Q4H PRN PRN Administration Pain Score 4-06/03 Polyethylene Glycol 17 gm 05/29/19 06:00 05/31/19 04:56 Miralax PO Not Given DAILY JERILYN Potassium Chloride 20 meq 05/30/19 17:00 05/31/19 07:44 K-Dur PO 20 meq BIDCM JERILYN Administration Senna/Docusate Sodium 1 tablet 05/28/19 18:00 05/31/19 04:56 Senokot-S, Miracle-Colace PO Not Given BID [facility] Sodium Chloride 5 - 15 ml 05/30/19 02:25 05/30/19 03:00 IV 10 ml UD PRN Administration SALINE FLUSH Tuberculin PPD 5 tu 06/05/19 10:00 Tubersol, Aplisol, Ppd ID 06/05/19 10:01 X1 ONE Problem List Debility (Acute) Nausea and vomiting (Acute) Aspiration pneumonia (Acute) Glaucoma (Chronic) Vital Signs Temp Pulse Resp BP Pulse Ox 97.5 F L 97 18 156/63 H 98 05/31/19 15:14 05/31/19 15:14 05/31/19 15:14 05/31/19 15:14 05/31/19 15:14 Oxygen Delivery Method Room Air Weight: 56.8 kg Body Mass Index (BMI) 22.8 Finger Stick Blood Glucose 187 Sodium 143 mmol/L (136-145) 05/30/19 07:20 Potassium 3.3 mmol/L (3.5-5.1) L 05/30/19 07:20 Chloride 110 mmol/L (98-107) H 05/30/19 07:20 Carbon Dioxide 23.0 mmol/L (21.0-32.0) 05/30/19 07:20 Anion Gap 10 (5-15) 05/30/19 07:20 BUN 19 mg/dL (7-18) H 05/30/19 07:20 Creatinine 1.07 mg/dL (0.55-1.02) H 05/30/19 07:20 Est GFR (MDRD) Af Amer 63 mL/min (>60) 05/30/19 07:20 Est GFR (MDRD) Non-Af 52 mL/min (>60) L 05/30/19 07:20 BUN/Creatinine Ratio 17.8 RATIO (10-20) 05/30/19 07:20 Glucose 141 mg/dL (74-106) H 05/30/19 07:20 Assessment/Plan: Psychotropic Medications: Unnecessary Medications: Bowel Regimen: - Provider Comments Provider responsibility: Provider responsible to enter orders to implement recommendations Provider Comments to Recommendations by Pharmacy: Agree
[2019-05-31] MEDS: 0.9% Normal Saline 1,000 ML 60 ML IV (14:44)
[2019-05-31 15:14] VITALS: BP 156/63; PULSE 97; RESP 18; TEMP 36.4; O2SAT 98
[2019-05-31 17:29] VITALS: PULSE 97
[2019-05-31] MEDS: Losartan Potassium 50 MG Tablet 100 MG PO (20:11)
[2019-05-31] MEDS: Atorvastatin Calcium 10 MG Tablet 5 MG PO (20:12)
[2019-05-31] MEDS: amLODIPine 2.5 MG Tablet PO (20:12)
[2019-05-31] MEDS: Latanoprost 0.005% 1 Bottle 1 DRP OPHTHALMIC (20:13)
[2019-06-01 05:34] VITALS: BP 179/69; PULSE 95
[2019-06-01] MEDS: Metoprolol Tartrate 100 MG Tablet 200 MG PO ×2 (05:34→17:52)
[2019-06-01] MEDS: Menthol/Lanolin/Calamine/Znox 113 GM Tube 1 APPLIC TOPICAL ×2 (05:34→21:28)
[2019-06-01 05:38] VITALS: PULSE 95; RESP 16; O2SAT 99
[2019-06-01 06:01] LABS: Anion Gap 8 (5-15); BUN 12 mg/dL (7-18); BUN/Creat Ratio 12.5 RATIO (10-20); Calcium,Total 7.8 mg/dL (8.5-10.1); Chloride 109 mmol/L (98-107); Creatinine, Serum 0.96 mg/dL (0.55-1.02); EST Glomerular Filtration Rate 59 mL/min (>60); Est Glom Filt Rate - Afr Amer 71 mL/min (>60); Estimated Creatinine Clearance 31.89 ml/min; Glucose 143 mg/dL (74-106); Potassium 3.5 mmol/L (3.5-5.1); Sodium Level 144 mmol/L (136-145)
[2019-06-01 06:36] LABS: Bedside Glucose 131 mg/dL (70-110)
[2019-06-01] MEDS: 0.9% Normal Saline 1,000 ML 60 ML IV (07:37)
[2019-06-01] MEDS: Aspirin 81 MG TAB.CHEW PO (09:43)
[2019-06-01] MEDS: Glimepiride 1 MG Tablet PO (09:43)
--- NOTE | 2019-06-01 13:55 | NURSING ---
Per therapy, pt had x2 loose stools within 1 hour. Reported to Gretta LEE.
[2019-06-01 15:54] VITALS: BP 156/65; PULSE 95; RESP 18; TEMP 36.4; O2SAT 98
[2019-06-01 17:52] VITALS: BP 156/65; PULSE 95
[2019-06-01] MEDS: Latanoprost 0.005% 1 Bottle 1 DRP OPHTHALMIC (21:26)
[2019-06-01] MEDS: Losartan Potassium 50 MG Tablet 100 MG PO (21:27)
[2019-06-01] MEDS: amLODIPine 2.5 MG Tablet PO (21:27)
[2019-06-01] MEDS: Atorvastatin Calcium 10 MG Tablet 5 MG PO (21:27)
[2019-06-01] MEDS: 0.9% NaCl Peripheral Flush Adult/Peds IV (21:39)
[2019-06-02 05:53] VITALS: BP 150/70; PULSE 89
[2019-06-02] MEDS: Metoprolol Tartrate 100 MG Tablet 200 MG PO ×2 (05:53→17:30)
[2019-06-02] MEDS: Menthol/Lanolin/Calamine/Znox 113 GM Tube 1 APPLIC TOPICAL ×2 (05:56→21:54)
[2019-06-02 06:25] LABS: Bedside Glucose 144 mg/dL (70-110)
[2019-06-02] MEDS: Aspirin 81 MG TAB.CHEW PO (08:31)
[2019-06-02] MEDS: Glimepiride 1 MG Tablet PO (08:31)
--- NOTE | 2019-06-02 09:16 | CASEMGMT ---
Social Work IDT met with patient and daughter for care plan meeting. Discussed patient's progress in therapy. Patient is SBA for all ADLs with extra time and adaptive equipment SBA for transfers, and min assist walking 150 ft with FWW for safety. Pt will continue to work with therapy on steps and strengthening. Explained Medicare benefit. Pt and family will notify IDT when ready to discharge home. Will continue to follow. ANTONETTE RickettsW
--- NOTE | 2019-06-02 11:30 | NURSING ---
[employer]MENT SUPERVISOR NURSE CHANGED PT DRESSING.
[2019-06-02] MEDS: 0.9% NaCl Peripheral Flush Adult/Peds IV (12:51)
[2019-06-02 13:00] VITALS: PULSE 86; RESP 18; O2SAT 96
[2019-06-02 16:00] VITALS: BP 170/66; PULSE 89; RESP 18; TEMP 36.7; O2SAT 98
[2019-06-02 17:30] VITALS: BP 170/66; PULSE 89
[2019-06-02] MEDS: Atorvastatin Calcium 10 MG Tablet 5 MG PO (21:51)
[2019-06-02] MEDS: Latanoprost 0.005% 1 Bottle 1 DRP OPHTHALMIC (21:52)
[2019-06-02] MEDS: Losartan Potassium 50 MG Tablet 100 MG PO (21:54)
[2019-06-02] MEDS: amLODIPine 2.5 MG Tablet PO (21:54)
[2019-06-03 04:51] VITALS: BP 173/56; PULSE 93
[2019-06-03] MEDS: Menthol/Lanolin/Calamine/Znox 113 GM Tube 1 APPLIC TOPICAL ×2 (04:51→20:10)
[2019-06-03] MEDS: Metoprolol Tartrate 100 MG Tablet 200 MG PO ×2 (04:51→17:04)
[2019-06-03 06:20] LABS: Bedside Glucose 163 mg/dL (70-110)
[2019-06-03] MEDS: Aspirin 81 MG TAB.CHEW PO (08:02)
[2019-06-03] MEDS: Glimepiride 1 MG Tablet PO (08:02)
[2019-06-03] MEDS: 0.9% NaCl Peripheral Flush Adult/Peds IV (14:05)
[2019-06-03 15:40] VITALS: BP 140/56; PULSE 99; RESP 18; TEMP 36.8; O2SAT 96
[2019-06-03 17:04] VITALS: BP 140/56; PULSE 99
[2019-06-03] MEDS: Losartan Potassium 50 MG Tablet 100 MG PO (20:09)
[2019-06-03] MEDS: Atorvastatin Calcium 10 MG Tablet 5 MG PO (20:09)
[2019-06-03] MEDS: amLODIPine 2.5 MG Tablet PO (20:09)
[2019-06-03] MEDS: Latanoprost 0.005% 1 Bottle 1 DRP OPHTHALMIC (20:10)
[2019-06-03 22:00] VITALS: RESP 16
[2019-06-04 06:05] VITALS: BP 162/69; PULSE 97
[2019-06-04] MEDS: Menthol/Lanolin/Calamine/Znox 113 GM Tube 1 APPLIC TOPICAL ×2 (06:05→19:47)
[2019-06-04] MEDS: Metoprolol Tartrate 100 MG Tablet 200 MG PO ×2 (06:05→17:25)
[2019-06-04 06:25] LABS: Bedside Glucose 145 mg/dL (70-110)
[2019-06-04] MEDS: Aspirin 81 MG TAB.CHEW PO (08:26)
[2019-06-04] MEDS: Glimepiride 1 MG Tablet PO (08:26)
[2019-06-04 09:19] VITALS: RESP 16
[2019-06-04 15:41] VITALS: BP 161/57; PULSE 86; RESP 17; TEMP 36.7; O2SAT 96
[2019-06-04 17:25] VITALS: PULSE 86
[2019-06-04] MEDS: Latanoprost 0.005% 1 Bottle 1 DRP OPHTHALMIC (19:46)
[2019-06-04] MEDS: Losartan Potassium 50 MG Tablet 100 MG PO (19:46)
[2019-06-04] MEDS: amLODIPine 2.5 MG Tablet PO (19:47)
[2019-06-04] MEDS: Atorvastatin Calcium 10 MG Tablet 5 MG PO (19:47)
[2019-06-05] MEDS: oxyCODONE 5 MG Tablet PO ×3 (00:34→23:21)
[2019-06-05 05:14] VITALS: PULSE 94
[2019-06-05] MEDS: Metoprolol Tartrate 100 MG Tablet 200 MG PO ×2 (05:14→17:49)
[2019-06-05] MEDS: Menthol/Lanolin/Calamine/Znox 113 GM Tube 1 APPLIC TOPICAL ×2 (05:18→22:07)
[2019-06-05 06:46] LABS: Bedside Glucose 145 mg/dL (70-110)
[2019-06-05 07:10] LABS: Absolute Lymphocyte Count 1.67 X10^3/uL (0.83-4.51); Absolute Neutrophil Count 5.7 X10^3/uL (2.0-7.7); Basophil# 0.03 X10^3/uL; Basophil% 0.4 % (0-1); Eosinophil# 0.05 X10^3/uL; Eosinophils% 0.6 % (0-5); Hematocrit 31.1 % (37-47); Hemoglobin 9.8 g/dL (12.0-15.0); Lymphocyte # 1.67 X10^3/ul (4.0); Lymphocyte % 20.4 % (19-41); Mean Corp Hgb Conc 31.5 g/dL (32-36); Mean Corpuscular Hgb 30.1 pg (27.0-32.0); Mean Corpuscular Volume 95.4 fL (81-99); Mean Platelet Vol. 9.4 fl (6.2-12.0); Monocyte# 0.74 X10^3/uL; NRBC Flagged by Analyzer 0 % (0-5); Neutrophil # 5.67 X10^3/uL (2.7-7.7); Neutrophil % 69.1 % (47-70); Platelet Count 398 K/mm3 (150-450); RBC Distribution Width CV 13.2 % (11.6-14.6); RBC Distribution Width SD 46.2 fl (35.1-43.9); Red Blood Count 3.26 M/mm3 (4.2-5.4); White Blood Count 8.2 K/mm3 (4.4-11.0)
[2019-06-05 07:38] LABS: Anion Gap 5 (5-15); BUN 10 mg/dL (7-18); BUN/Creat Ratio 10.7 RATIO (10-20); Calcium,Total 7.8 mg/dL (8.5-10.1); Chloride 105 mmol/L (98-107); Creatinine, Serum 0.94 mg/dL (0.55-1.02); EST Glomerular Filtration Rate 61 mL/min (>60); Est Glom Filt Rate - Afr Amer 73 mL/min (>60); Estimated Creatinine Clearance 32.57 ml/min; Glucose 152 mg/dL (74-106); Potassium 4.2 mmol/L (3.5-5.1); Sodium Level 138 mmol/L (136-145)
[2019-06-05] MEDS: Glimepiride 1 MG Tablet PO (09:11)
[2019-06-05] MEDS: Aspirin 81 MG TAB.CHEW PO (09:11)
[2019-06-05] MEDS: Tuberculin,Purif.prot.deriv. 50 TU/ML Vial 5 ML ID (11:32)
[2019-06-05 15:49] VITALS: BP 166/55; PULSE 97; RESP 19; TEMP 36.8; O2SAT 95
--- NOTE | 2019-06-05 16:52 | NURSING ---
Saline lock to LFA d/c'd at this time. Catheter intact.
[2019-06-05 17:49] VITALS: BP 166/55; PULSE 97
[2019-06-05] MEDS: Latanoprost 0.005% 1 Bottle 1 DRP OPHTHALMIC (22:03)
[2019-06-05] MEDS: Losartan Potassium 50 MG Tablet 100 MG PO (22:03)
[2019-06-05] MEDS: amLODIPine 2.5 MG Tablet PO (22:05)
[2019-06-05] MEDS: Atorvastatin Calcium 10 MG Tablet 5 MG PO (22:06)
[2019-06-05 22:09] VITALS: PULSE 87; RESP 16; O2SAT 98
[2019-06-06] MEDS: Menthol/Lanolin/Calamine/Znox 113 GM Tube 1 APPLIC TOPICAL ×2 (06:14→20:19)
[2019-06-06 06:15] VITALS: BP 178/63; PULSE 95
[2019-06-06] MEDS: Metoprolol Tartrate 100 MG Tablet 200 MG PO ×2 (06:15→18:09)
--- NOTE | 2019-06-06 06:16 | NURSING ---
Pt c/o pain in left great toe nurse assess the toe and noticed redness and warmth to toe. Pt states I have gout and use to be on a medication for it. Rn aware.
[2019-06-06 06:40] LABS: Bedside Glucose 161 mg/dL (70-110)
[2019-06-06] MEDS: Iron Polysaccharide Complex 150 MG CAPSULE PO (08:17)
[2019-06-06] MEDS: Aspirin 81 MG TAB.CHEW PO (08:17)
[2019-06-06] MEDS: Glimepiride 1 MG Tablet PO (08:17)
--- NOTE | 2019-06-06 08:26 | NURSING ---
Pt had small emesis after taking scheduled AM meds. No noted pills visible in emesis. Pt had no c/o nausea prior to pills. Pt stated she felt like she had to belch and it just came up. Reported to Hood LEE.
[2019-06-06 10:00] VITALS: PULSE 88; RESP 16; O2SAT 98
[2019-06-06] MEDS: oxyCODONE 5 MG Tablet PO (10:26)
--- NOTE | 2019-06-06 10:56 | NURSING ---
n/o for medrol dose fredrick for redness, swelling and tenderness in L great toe
[2019-06-06] MEDS: MethylPREDNISolone DosePak 4 MG BOX PO ×3 (11:55→20:21)
[2019-06-06 15:16] VITALS: BP 157/48; PULSE 92; RESP 18; TEMP 36.6; O2SAT 96
[2019-06-06 18:09] VITALS: BP 157/48; PULSE 92
[2019-06-06] MEDS: Latanoprost 0.005% 1 Bottle 1 DRP OPHTHALMIC (20:19)
[2019-06-06] MEDS: amLODIPine 2.5 MG Tablet PO (20:20)
[2019-06-06] MEDS: Losartan Potassium 50 MG Tablet 100 MG PO (20:20)
[2019-06-06] MEDS: Atorvastatin Calcium 10 MG Tablet 5 MG PO (20:20)
[2019-06-07 06:20] VITALS: BP 150/62; PULSE 87
[2019-06-07] MEDS: Metoprolol Tartrate 100 MG Tablet 200 MG PO ×2 (06:20→17:26)
[2019-06-07] MEDS: Menthol/Lanolin/Calamine/Znox 113 GM Tube 1 APPLIC TOPICAL ×2 (06:21→20:37)
[2019-06-07 06:45] LABS: Bedside Glucose 241 mg/dL (70-110)
[2019-06-07] MEDS: Iron Polysaccharide Complex 150 MG CAPSULE PO (07:59)
[2019-06-07] MEDS: Glimepiride 1 MG Tablet PO (07:59)
[2019-06-07] MEDS: Aspirin 81 MG TAB.CHEW PO (08:00)
[2019-06-07] MEDS: MethylPREDNISolone DosePak 4 MG BOX PO ×4 (08:05→20:34)
--- NOTE | 2019-06-07 10:01 | NURSING ---
INTO TAKE PT JEREMIAS OUT,CHANGED DRESSING AND APPLIED STRI STRIPS. JESUS ESCOBAR AWARE
[2019-06-07 10:10] VITALS: PULSE 95; RESP 18; O2SAT 97
[2019-06-07 15:06] VITALS: BP 140/61; PULSE 91; RESP 18; TEMP 37.1; O2SAT 97
[2019-06-07 17:26] VITALS: BP 140/61; PULSE 91
--- NOTE | 2019-06-07 19:27 | PCM.PN.SRG ---
Patient Problems: Active and Suspected Problems Debility (Acute) Nausea and vomiting (Acute) Aspiration pneumonia (Acute) Subjective: Tolerating diet, normal bowel movements, passing flatus, minimal abdominal pain however, still seems short of breath and ambulating poorly - undergoing rehab - Physical Exam General: Alert, Oriented x3 Abdomen: Soft, - - skin jory removed and steristrips placed open wounds are clean, somewhat granulation tissue, no purulent discharge Vital Signs Temp Pulse Resp BP Pulse Ox 98.7 F 91 18 140/61 H 97 06/07/19 15:06 06/07/19 17:26 06/07/19 15:06 06/07/19 17:26 06/07/19 15:06 Oxygen Delivery Method Room Air Weight: 54.488 kg Body Mass Index (BMI) 22.8 Finger Stick Blood Glucose 187 Intake and Output for Last 24 Hours 06/05/19 06/06/19 06/07/19 23:59 23:59 23:59 Intake Total 900 / 900 920 / 920 1400 / 1400 Balance 900 / 900 920 / 920 1400 / 1400 POC Glucose 06/07/19 06:20 POC Glucose 241 H Medical Necessity - Tobacco Use Smoking Status: Former smoker Tobacco Use: Non-smoker Assessment/Plan All Active Problems Small bowel obstruction (Acute) Dehydration (Acute) MERCEDES (acute kidney injury) (Acute) Hyponatremia (Acute) Hyperphosphatemia (Acute) Debility (Acute) Nausea and vomiting (Acute) Aspiration pneumonia (Acute) Impression: s/p small bowel obstruction for complete bowel obstruction 05/22/19 Plan: patient in TCU for rehabilitation I will continue follow up of this wound
[2019-06-07] MEDS: Latanoprost 0.005% 1 Bottle 1 DRP OPHTHALMIC (20:30)
[2019-06-07] MEDS: Atorvastatin Calcium 10 MG Tablet 5 MG PO (20:34)
[2019-06-07] MEDS: amLODIPine 2.5 MG Tablet PO (20:35)
[2019-06-07] MEDS: Losartan Potassium 50 MG Tablet 100 MG PO (20:36)
[2019-06-08 06:14] VITALS: BP 195/80; PULSE 85
[2019-06-08] MEDS: Metoprolol Tartrate 100 MG Tablet 200 MG PO ×2 (06:14→17:17)
[2019-06-08] MEDS: Menthol/Lanolin/Calamine/Znox 113 GM Tube 1 APPLIC TOPICAL ×2 (06:16→20:53)
[2019-06-08 06:36] LABS: Bedside Glucose 230 mg/dL (70-110)
[2019-06-08] MEDS: Glimepiride 1 MG Tablet PO (08:00)
[2019-06-08] MEDS: Aspirin 81 MG TAB.CHEW PO (08:01)
[2019-06-08] MEDS: MethylPREDNISolone DosePak 4 MG BOX PO ×4 (08:01→20:51)
[2019-06-08] MEDS: Iron Polysaccharide Complex 150 MG CAPSULE PO (08:01)
--- NOTE | 2019-06-08 14:14 | MDS.RN ---
MDS assessment competed, waiting to finalize per [facility] Information Systems instructions. Information for the mds was obtained from review of the clinical record, interview of resident, staff, and direct observation of resident's care.
--- NOTE | 2019-06-08 15:00 | NURSING ---
wound photo: abdomen
[2019-06-08 15:34] VITALS: BP 185/68; PULSE 82; RESP 18; TEMP 36.7; O2SAT 96
[2019-06-08 17:17] VITALS: BP 185/68; PULSE 82
[2019-06-08] MEDS: Latanoprost 0.005% 1 Bottle 1 DRP OPHTHALMIC (19:57)
[2019-06-08] MEDS: Losartan Potassium 50 MG Tablet 100 MG PO (19:57)
[2019-06-08] MEDS: amLODIPine 2.5 MG Tablet PO (19:57)
[2019-06-08] MEDS: Atorvastatin Calcium 10 MG Tablet 5 MG PO (19:58)
[2019-06-08 19:59] VITALS: PULSE 115
[2019-06-09 06:26] VITALS: BP 164/65; PULSE 83
[2019-06-09] MEDS: Metoprolol Tartrate 100 MG Tablet 200 MG PO ×2 (06:26→16:24)
[2019-06-09] MEDS: Menthol/Lanolin/Calamine/Znox 113 GM Tube 1 APPLIC TOPICAL ×2 (06:28→22:06)
[2019-06-09 06:36] LABS: Bedside Glucose 214 mg/dL (70-110)
[2019-06-09] MEDS: Glimepiride 1 MG Tablet PO (07:58)
[2019-06-09] MEDS: Aspirin 81 MG TAB.CHEW PO (07:59)
[2019-06-09] MEDS: Iron Polysaccharide Complex 150 MG CAPSULE PO (07:59)
[2019-06-09] MEDS: MethylPREDNISolone DosePak 4 MG BOX PO ×3 (08:00→22:05)
[2019-06-09 16:00] VITALS: BP 158/65; PULSE 82; RESP 18; TEMP 36.7; O2SAT 97
[2019-06-09 16:24] VITALS: PULSE 82
[2019-06-09] MEDS: Atorvastatin Calcium 10 MG Tablet 5 MG PO (22:04)
[2019-06-09] MEDS: Losartan Potassium 50 MG Tablet 100 MG PO (22:04)
[2019-06-09] MEDS: amLODIPine 2.5 MG Tablet PO (22:04)
[2019-06-09] MEDS: Latanoprost 0.005% 1 Bottle 1 DRP OPHTHALMIC (22:06)
[2019-06-10 06:21] LABS: Bedside Glucose 226 mg/dL (70-110)
[2019-06-10 06:31] VITALS: BP 184/69; PULSE 78
[2019-06-10] MEDS: Menthol/Lanolin/Calamine/Znox 113 GM Tube 1 APPLIC TOPICAL ×2 (06:31→20:06)
[2019-06-10] MEDS: Metoprolol Tartrate 100 MG Tablet 200 MG PO ×2 (06:31→17:45)
[2019-06-10] MEDS: Aspirin 81 MG TAB.CHEW PO (08:03)
[2019-06-10] MEDS: Iron Polysaccharide Complex 150 MG CAPSULE PO (08:03)
[2019-06-10] MEDS: Glimepiride 1 MG Tablet PO (08:03)
[2019-06-10] MEDS: MethylPREDNISolone DosePak 4 MG BOX PO ×2 (08:04→20:11)
[2019-06-10 08:08] VITALS: PULSE 80
[2019-06-10 16:00] VITALS: BP 158/43; PULSE 88; RESP 19; TEMP 36.4; O2SAT 100
[2019-06-10 17:45] VITALS: BP 158/43; PULSE 88
[2019-06-10 19:57] VITALS: BP 157/56; PULSE 78
[2019-06-10] MEDS: Losartan Potassium 50 MG Tablet 100 MG PO (20:07)
[2019-06-10] MEDS: amLODIPine 2.5 MG Tablet PO (20:07)
[2019-06-10] MEDS: Latanoprost 0.005% 1 Bottle 1 DRP OPHTHALMIC (20:08)
[2019-06-10] MEDS: Atorvastatin Calcium 10 MG Tablet 5 MG PO (20:09)
[2019-06-11 04:46] VITALS: BP 182/69; PULSE 75
[2019-06-11 04:50] VITALS: BP 182/69; PULSE 75
[2019-06-11] MEDS: Metoprolol Tartrate 100 MG Tablet 200 MG PO ×2 (04:50→17:17)
[2019-06-11] MEDS: Menthol/Lanolin/Calamine/Znox 113 GM Tube 1 APPLIC TOPICAL ×2 (04:51→21:23)
[2019-06-11 06:41] LABS: Bedside Glucose 232 mg/dL (70-110)
[2019-06-11] MEDS: Iron Polysaccharide Complex 150 MG CAPSULE PO (07:38)
[2019-06-11] MEDS: Aspirin 81 MG TAB.CHEW PO (07:38)
[2019-06-11] MEDS: Glimepiride 1 MG Tablet PO (07:38)
--- NOTE | 2019-06-11 11:53 | NURSING ---
spoke with Ella at Dr. Richards's office, she will talk with Dr. Richards to determine need to f/u in office vs Dr. Richards coming to floor to see pt.
--- NOTE | 2019-06-11 13:20 | NURSING ---
THIS NURSE WALKED INTO PT ROOM AND FOUND PT THROWING UP. ASKED PT HOW SHE WAS FEELING PT STATED SHE FELT NAUSEATED AFTER LUNCH AND STARTED THROWING UP. TEMP 98.2 TA, PT STATED NO CHILLS OR ACHES. SEEN PT HAD FLU VACCINE ON 06/09/19 TALKED TO PHARMACY ABOUT SIDE AFFECTS,PHARMACY STATED POSSIBLE SIDE AFFECT IS NAUSEA. REPORTED TO ROZ,RN WILL CONTINUE TO MONITOR.
[2019-06-11 16:00] VITALS: BP 131/47; PULSE 81; RESP 18; TEMP 36.4; O2SAT 98
[2019-06-11 17:17] VITALS: BP 131/47; PULSE 81
[2019-06-11] MEDS: Atorvastatin Calcium 10 MG Tablet 5 MG PO (21:21)
[2019-06-11] MEDS: Losartan Potassium 50 MG Tablet 100 MG PO (21:22)
[2019-06-11] MEDS: amLODIPine 2.5 MG Tablet PO (21:22)
[2019-06-11] MEDS: Latanoprost 0.005% 1 Bottle 1 DRP OPHTHALMIC (21:27)
[2019-06-12 05:06] VITALS: PULSE 78
[2019-06-12] MEDS: Metoprolol Tartrate 100 MG Tablet 200 MG PO ×2 (05:06→17:24)
[2019-06-12] MEDS: Menthol/Lanolin/Calamine/Znox 113 GM Tube 1 APPLIC TOPICAL ×2 (05:07→20:40)
[2019-06-12 05:42] LABS: Absolute Lymphocyte Count 1.95 X10^3/uL (0.83-4.51); Absolute Neutrophil Count 5.7 X10^3/uL (2.0-7.7); Basophil# 0.05 X10^3/uL; Basophil% 0.6 % (0-1); Eosinophils% 1.2 % (0-5); Hematocrit 35.6 % (37-47); Hemoglobin 11.2 g/dL (12.0-15.0); Lymphocyte # 1.95 X10^3/ul (4.0); Lymphocyte % 23.1 % (19-41); Mean Corp Hgb Conc 31.5 g/dL (32-36); Mean Corpuscular Hgb 29.2 pg (27.0-32.0); Monocyte# 0.57 X10^3/uL; Monocyte% 6.7 % (0-10); NRBC Flagged by Analyzer 0 % (0-5); Neutrophil # 5.72 X10^3/uL (2.7-7.7); Neutrophil % 67.7 % (47-70); Platelet Count 476 K/mm3 (150-450); RBC Distribution Width CV 12.8 % (11.6-14.6); RBC Distribution Width SD 43.5 fl (35.1-43.9); Red Blood Count 3.83 M/mm3 (4.2-5.4); White Blood Count 8.5 K/mm3 (4.4-11.0)
[2019-06-12 06:02] LABS: Anion Gap 5 (5-15); BUN 23 mg/dL (7-18); BUN/Creat Ratio 23.1 RATIO (10-20); Calcium,Total 9.1 mg/dL (8.5-10.1); Chloride 102 mmol/L (98-107); EST Glomerular Filtration Rate 57 mL/min (>60); Est Glom Filt Rate - Afr Amer 68 mL/min (>60); Estimated Creatinine Clearance 30.62 ml/min; Glucose 176 mg/dL (74-106); Potassium 5.8 mmol/L (3.5-5.1); Sodium Level 135 mmol/L (136-145)
[2019-06-12 06:25] LABS: Bedside Glucose 171 mg/dL (70-110)
[2019-06-12] MEDS: Glimepiride 1 MG Tablet PO (07:55)
[2019-06-12] MEDS: Aspirin 81 MG TAB.CHEW PO (07:55)
[2019-06-12] MEDS: Iron Polysaccharide Complex 150 MG CAPSULE PO (07:55)
[2019-06-12] MEDS: Sodium Polystyrene Sulfonate 15 GM/60 ML UDC 30 GM PO (11:26)
--- NOTE | 2019-06-12 11:43 | NURSING ---
DR Verma aware of labs this AM, new orders for kayexalate and dc'd potassium.
[2019-06-12 15:52] VITALS: BP 131/56; PULSE 92; RESP 18; TEMP 36.6; O2SAT 98
[2019-06-12 17:24] VITALS: BP 131/56; PULSE 92
[2019-06-12] MEDS: Losartan Potassium 50 MG Tablet 100 MG PO (20:38)
[2019-06-12] MEDS: amLODIPine 2.5 MG Tablet PO (20:38)
[2019-06-12] MEDS: Atorvastatin Calcium 10 MG Tablet 5 MG PO (20:39)
[2019-06-12] MEDS: Latanoprost 0.005% 1 Bottle 1 DRP OPHTHALMIC (20:39)
[2019-06-13 05:12] VITALS: BP 149/47; PULSE 78; RESP 18; TEMP 36.5; O2SAT 97
[2019-06-13 05:13] VITALS: BP 149/47; PULSE 78
[2019-06-13] MEDS: Metoprolol Tartrate 100 MG Tablet 200 MG PO ×2 (05:13→17:39)
[2019-06-13] MEDS: Menthol/Lanolin/Calamine/Znox 113 GM Tube 1 APPLIC TOPICAL ×2 (05:17→21:38)
[2019-06-13 06:13] LABS: Anion Gap 7 (5-15); BUN 29 mg/dL (7-18); BUN/Creat Ratio 26.6 RATIO (10-20); Calcium,Total 8.8 mg/dL (8.5-10.1); Chloride 101 mmol/L (98-107); Creatinine, Serum 1.09 mg/dL (0.55-1.02); EST Glomerular Filtration Rate 51 mL/min (>60); Est Glom Filt Rate - Afr Amer 62 mL/min (>60); Estimated Creatinine Clearance 28.09 ml/min; Glucose 199 mg/dL (74-106); Potassium 4.3 mmol/L (3.5-5.1); Sodium Level 136 mmol/L (136-145)
[2019-06-13 06:21] LABS: Bedside Glucose 194 mg/dL (70-110)
[2019-06-13] MEDS: Aspirin 81 MG TAB.CHEW PO (07:50)
[2019-06-13] MEDS: Iron Polysaccharide Complex 150 MG CAPSULE PO (07:50)
[2019-06-13] MEDS: Glimepiride 1 MG Tablet PO (07:50)
[2019-06-13 15:29] VITALS: BP 112/53; PULSE 87; RESP 18; TEMP 36.9; O2SAT 98
[2019-06-13 17:39] VITALS: PULSE 84
[2019-06-13 20:45] VITALS: PULSE 82; RESP 16; O2SAT 98
[2019-06-13] MEDS: Latanoprost 0.005% 1 Bottle 1 DRP OPHTHALMIC (21:35)
[2019-06-13] MEDS: Losartan Potassium 50 MG Tablet 100 MG PO (21:36)
[2019-06-13] MEDS: amLODIPine 2.5 MG Tablet PO (21:37)
[2019-06-13] MEDS: Atorvastatin Calcium 10 MG Tablet 5 MG PO (21:37)
[2019-06-14 06:26] LABS: Bedside Glucose 184 mg/dL (70-110)
[2019-06-14] MEDS: Menthol/Lanolin/Calamine/Znox 113 GM Tube 1 APPLIC TOPICAL ×2 (06:26→20:17)
[2019-06-14 06:28] VITALS: BP 152/59; PULSE 80
[2019-06-14] MEDS: Metoprolol Tartrate 100 MG Tablet 200 MG PO ×2 (06:28→17:27)
[2019-06-14] MEDS: Glimepiride 1 MG Tablet PO (08:08)
[2019-06-14] MEDS: Aspirin 81 MG TAB.CHEW PO (08:08)
[2019-06-14] MEDS: Iron Polysaccharide Complex 150 MG CAPSULE PO (08:09)
--- NOTE | 2019-06-14 14:50 | NURSING ---
wound photo: abdomen
[2019-06-14 15:21] VITALS: BP 138/38; PULSE 81; RESP 16; TEMP 36.6; O2SAT 98
[2019-06-14 17:27] VITALS: PULSE 81
[2019-06-14] MEDS: Latanoprost 0.005% 1 Bottle 1 DRP OPHTHALMIC (20:07)
[2019-06-14] MEDS: amLODIPine 2.5 MG Tablet PO (20:08)
[2019-06-14] MEDS: Losartan Potassium 50 MG Tablet 100 MG PO (20:08)
[2019-06-14] MEDS: Atorvastatin Calcium 10 MG Tablet 5 MG PO (20:08)
[2019-06-14 20:18] VITALS: RESP 16; O2SAT 97
[2019-06-15 06:23] VITALS: BP 162/53; PULSE 83
[2019-06-15] MEDS: Metoprolol Tartrate 100 MG Tablet 200 MG PO ×2 (06:23→17:43)
[2019-06-15] MEDS: Menthol/Lanolin/Calamine/Znox 113 GM Tube 1 APPLIC TOPICAL ×2 (06:25→19:55)
--- NOTE | 2019-06-15 06:25 | NURSING ---
Pt c/o left great toe starting to hurt her again and was wondering if she could be put on something for gout. Left great toe has redness and swelling to the area. Pt was on medrol fredrick recently for gout will make Rn aware.
[2019-06-15 06:31] LABS: Bedside Glucose 173 mg/dL (70-110)
[2019-06-15] MEDS: Glimepiride 1 MG Tablet PO (08:04)
[2019-06-15] MEDS: Iron Polysaccharide Complex 150 MG CAPSULE PO (08:04)
[2019-06-15] MEDS: Aspirin 81 MG TAB.CHEW PO (08:04)
[2019-06-15 09:50] VITALS: PULSE 89; RESP 18; O2SAT 97
[2019-06-15 15:46] VITALS: BP 126/37; PULSE 80; RESP 17; TEMP 36.6; O2SAT 99
--- NOTE | 2019-06-15 16:16 | CASEMGMT ---
Addendum entered by Karina Alcocer 06/17/19 16:38: Daughter inquired about a cane for DC. Will provide dtr with script and can bring to drug store to be submitted to insurance. Addendum entered by Karina Alcocer 06/15/19 16:20: Correction: pt does not have ostomy. Original Note: Social Work Therapy issuing LCD 06/17, DC home 06/18. Left message with dtr. Spoke with pt whom agrees. Provided pt with list of [facility] agencies - pt chose [facility]. Referral made for PT/OT/SN and supplies for wounds and ostomy. No DME needs. Plan: DC home 06/18 with [facility] PT/OT/SN. ANTONETTE RickettsW
[2019-06-15 17:43] VITALS: BP 155/56; PULSE 88
[2019-06-15 17:46] VITALS: BP 155/56; PULSE 88
[2019-06-15] MEDS: Atorvastatin Calcium 10 MG Tablet 5 MG PO (19:50)
[2019-06-15] MEDS: Latanoprost 0.005% 1 Bottle 1 DRP OPHTHALMIC (19:51)
[2019-06-15] MEDS: Losartan Potassium 50 MG Tablet 100 MG PO (19:51)
[2019-06-15] MEDS: amLODIPine 2.5 MG Tablet PO (19:51)
--- NOTE | 2019-06-15 20:28 | PCM.DC ---
- Discharge Diagnoses Current Active Problems: Current Active and Chronic Problems Debility (Acute) Nausea and vomiting (Acute) Aspiration pneumonia (Acute) Glaucoma (Chronic) You will use the following diet at home:: No restrictions, Regular Your food should be the consistency of: Regular Your liquids should be the consistency of: Regular/Thin Discharge Activity: Return to Normal Activity, May Shower, Use Walker Weight Bearing Status: Weight bearing as tolerated Call your doctor if you observe: Fever of 101 or Higher, Inability to urinate, Inability to have a bowel movement, Shortness of breath, Chest pain, Uncontrolled pain Allergies/Adverse Reactions: Allergies betaxolol [From Betoptic] Allergy (Verified 05/22/19 07:52) Itching brimonidine [From Alphagan P] Allergy (Verified 05/22/19 07:52) Itching cephalexin [From Keflex] Allergy (Verified 05/22/19 07:52) Rash nabumetone [From Relafen] Allergy (Verified 05/22/19 07:52) Rash Medications to take at Discharge Amlodipine Besylate [Norvasc] 2.5 mg PO QHS 04/04/17 Latanoprost 0.005% [Xalatan Opthalmic] 1 drop EACH EYE QHS 04/04/17 Losartan Potassium 100 mg PO QHS 04/04/17 Metoprolol Tartrate [Lopressor (beta mathew)] 200 mg PO BID 04/04/17 Simvastatin [Zocor] 10 mg PO QHS 04/04/17 Aspirin E.C. [Ecotrin] 81 mg PO DAILY@0800 #0 05/28/19 Acetaminophen [Tylenol] 1,000 mg PO Q6H PRN tablet 06/15/19 Amlodipine [Norvasc] 2.5 mg PO 2000 tablet 06/15/19 Aspirin [Aspirin, Baby] 81 mg PO DAILY@0800 tab.chew 06/15/19 Glimepiride [Amaryl] 1 mg PO DAILY@0800 tablet 06/15/19 Iron Polysaccharide Complex [Ferrex 150] 150 mg PO DAILYCM #30 cap 06/15/19 Latanoprost 0.005% [Xalatan Opthalmic] 1 drop OPHTHALMIC 2000 bottle 06/15/19 Losartan Potassium [Cozaar] 100 mg PO 2000 tablet 06/15/19 Menthol/Lanolin/Calamine/Znox [Calmoseptine Ointment] 1 applic TOPICAL 0600,2200 tube 06/15/19 Metoprolol Tartrate [Lopressor (beta mathew)] 200 mg PO BID tablet 06/15/19 The following prescriptions were given: Iron Polysaccharide Complex [Ferrex 150] 150 mg PO DAILYCM #30 cap Transmission Status: Pending to [id number] Primary Care Physician: Claire Sharif MD [Primary Care Provider] - Please follow up with your Primary Care Physician in: 1 week. Test Results: Test results from this visit will be discussed in further detail at your follow-up appointment, if applicable. Please Follow Up With: Viktoriya Richards MD (will see Lia Guerrero NP)/CANCELED When: 2-4 weeks Proposed Discharge Date: 06/18/19
--- NOTE | 2019-06-15 20:29 | DS.PCM_ITS ---
Discharge Date and Diagnosis - Problem List Patient Problems: Active and Suspected Problems Debility (Acute) Nausea and vomiting (Acute) Aspiration pneumonia (Acute) Date of Admission: 05/28/19 Date of Discharge: 06/18/19 - Primary Discharge Diagnosis Active and Suspected Problems Debility (Acute) Nausea and vomiting (Acute) Aspiration pneumonia (Acute) - Secondary Discharge Diagnosis Chronic Problems Tobacco dependence in remission (Chronic) Glaucoma (Chronic) Vertigo (Chronic) Diabetes (Chronic) Hypertension (Chronic) Hyperlipidemia (Chronic) Hospital Course and Treatment Imaging Results: 05/29/19 11:22 Diet: Regular Diet Is pt able to select menu?: Yes Diet Comments: Small portions Labs (Last 48 Hours) 06/14/19 06/15/19 06:19 06:23 POC Glucose 184 H 173 H Consultations 05/29/19 14:24 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 Richards 05/22/2019, complicated by difficulty extubation, hypotension, aspiration, admitted to TCU with debility, here for rehabilitation, strengthening, prior to discharge home with family. Discharge home with family, [facility] for PT/OT/SN. Patient Problems: Active and Suspected Problems Debility (Acute) Nausea and vomiting (Acute) Aspiration pneumonia (Acute) - Physical Exam Vitals/I&O's: Vital Signs Temp Pulse Resp BP Pulse Ox 97.8 F 88 17 155/56 H 99 06/15/19 15:46 06/15/19 17:46 06/15/19 15:46 06/15/19 17:46 06/15/19 15:46 Oxygen Delivery Method Room Air Weight: 49.555 kg Body Mass Index (BMI) 22.8 Finger Stick Blood Glucose 187 Intake and Output for Last 24 Hours 06/13/19 06/14/19 06/15/19 23:59 23:59 23:59 Intake Total 1060 / 1060 800 / 800 840 / 840 Balance 1060 / 1060 800 / 800 840 / 840 Laboratory Results 06/15/19 06:23: POC Glucose 173 H Current Medications Acetaminophen (Tylenol) 1,000 mg PO Q6H PRN PRN Reason: Pain Score 1-310 Last Admin: 05/30/19 10:47 Dose: 1,000 mg Documented by: Amlodipine Besylate (Norvasc) 2.5 mg PO 1999 [facility] Last Admin: 06/15/19 19:51 Dose: 2.5 mg Documented by: Aspirin (Aspirin, Baby) 81 mg PO DAILY@0800 [facility] Last Admin: 06/15/19 08:04 Dose: 81 mg Documented by: Atorvastatin Calcium (Lipitor) 5 mg PO QHS [facility] Last Admin: 06/15/19 19:50 Dose: 5 mg Documented by: Bisacodyl (Dulcolax) 10 mg PO DAILY PRN PRN Reason: Constipation Calamine/Phenol (Calmoseptine Ointment) 1 applic TOPICAL 0600,220 [facility]; Protocol Last Admin: 06/15/19 19:55 Dose: 1 applicatio Documented by: Colchicine (Colchicine) 0.6 mg PO DAILY [facility] Stop: 06/23/19 06:01 Glimepiride (Amaryl) 1 mg PO DAILY@0800 [facility] Last Admin: 06/15/19 08:04 Dose: 1 mg Documented by: Latanoprost (Xalatan Opthalmic) 1 drop OPHTHALMIC 1999 [facility] Last Admin: 06/15/19 19:51 Dose: 1 drop Documented by: Losartan Potassium (Cozaar) 100 mg PO 1999 [facility] Last Admin: 06/15/19 19:51 Dose: 100 mg Documented by: Metoprolol Tartrate (Lopressor (Beta Sudheer)) 200 mg PO BID [facility] Last Admin: 06/15/19 17:43 Dose: 200 mg Documented by: Oxycodone HCl (Oxyir) 5 mg PO Q4H PRN PRN PRN Reason: Pain Score 4-1010 Last Admin: 06/06/19 10:26 Dose: 5 mg Documented by: Polyethylene Glycol (Miralax) 17 gm PO DAILY [facility] Last Admin: 06/15/19 06:24 Dose: Not Given Documented by: Polysaccharide Iron Complex (Ferrex 150) 150 mg PO DAILY [facility] Last Admin: 06/15/19 08:04 Dose: 150 mg Documented by: Senna/Docusate Sodium (Senokot-S, Miracle-Colace) 1 tablet PO BID PRN PRN Reason: Constipation Sodium Chloride () 5 - 15 ml IV UD PRN PRN Reason: SALINE FLUSH Last Admin: 06/03/19 14:05 Dose: 10 ml Documented by: Discharge Diet: No Restrictions Discharge Activity: Return to Normal Activity, May Shower, Use Walker Weight Bearing Status: Weight bearing as tolerated Call your doctor if you observe: Fever of 101 or Higher, Inability to urinate, Inability to have a bowel movement, Shortness of breath, Chest pain, Uncontrolled pain Home Medications: Medications to take at Discharge Amlodipine Besylate [Norvasc] 2.5 mg PO QHS 04/04/17 Latanoprost 0.005% [Xalatan Opthalmic] 1 drop EACH EYE QHS 04/04/17 Losartan Potassium 100 mg PO QHS 04/04/17 Metoprolol Tartrate [Lopressor (beta sudheer)] 200 mg PO BID 04/04/17 Simvastatin [Zocor] 10 mg PO QHS 04/04/17 Aspirin E.C. [Ecotrin] 81 mg PO DAILY@0800 #0 05/28/19 Acetaminophen [Tylenol] 1,000 mg PO Q6H PRN tablet 06/15/19 Amlodipine [Norvasc] 2.5 mg PO 2000 tablet 06/15/19 Aspirin [Aspirin, Baby] 81 mg PO DAILY@0800 tab.chew 06/15/19 Glimepiride [Amaryl] 1 mg PO DAILY@0800 tablet 06/15/19 Iron Polysaccharide Complex [Ferrex 150] 150 mg PO DAILYCM #30 cap 06/15/19 Latanoprost 0.005% [Xalatan Opthalmic] 1 drop OPHTHALMIC 2000 bottle 06/15/19 Losartan Potassium [Cozaar] 100 mg PO 2000 tablet 06/15/19 Menthol/Lanolin/Calamine/Znox [Calmoseptine Ointment] 1 applic TOPICAL 0600,2200 tube 06/15/19 Metoprolol Tartrate [Lopressor (beta sudheer)] 200 mg PO BID tablet 06/15/19 Following Prescrptions Were Given to Patient: Iron Polysaccharide Complex [Ferrex 150] 150 mg PO DAILYCM #30 cap Transmission Status: Pending to [id number] Primary Care Physician: Claire Sharif MD [Primary Care Provider] - Please follow up with your Primary Care Physician in: 1 week. Please Follow Up With: Viktoriya Richards MD (will see Lia Guerrero NP)/CANCELED When: 2-4 weeks Disposition: Home with Home Health Minutes spent on discharge:: 35 Patient Condition:: Stable Medical Necessity - Tobacco Use Smoking Status: Former smoker Tobacco Use: Non-smoker Meaningful Use Info Meaningful Use Diagnoses (Choose all that apply): None applicable
--- NOTE | 2019-06-15 20:31 | PCM.PN.HH ---
Home Health Note - Plan Overview of reason of hospitalization: The patient is a 84 year old Female with below past medical history hospitalized for small bowel obstruction, underwent exploratory laparotomy, lysis of adhesions, jejunum enterectomy per Dr. Richards 05/22/2019, complicated by difficulty extubation, hypotension, aspiration, admitted to TCU with debility, here for rehabilitation, strengthening, prior to discharge home with family. Discharge home with family, [facility] for PT/OT/SN. Problems: Patient was seen for Debility (Acute) Nausea and vomiting (Acute) Aspiration pneumonia (Acute) Glaucoma (Chronic) Complete List of Medical Problems Small bowel obstruction (Acute) Dehydration (Acute) MERCEDES (acute kidney injury) (Acute) Hyponatremia (Acute) Hyperphosphatemia (Acute) Tobacco dependence in remission (Chronic) Debility (Acute) Nausea and vomiting (Acute) Aspiration pneumonia (Acute) Glaucoma (Chronic) Vertigo (Chronic) Diabetes (Chronic) Hypertension (Chronic) Hyperlipidemia (Chronic) - Requirements and Reasons Disciplines Needed/Ordered: Correction, Physical Therapy Reason for Disciplines: Medication Management/Knowledge Deficit, Wound Care, Gait Training, Stair Training, Fall Prevention, Home Safety/Equipment Instruction, Balance and/or Posture Training, Transfer Training Related To: Change in Medical Treatment Plan, Limited/Poor Endurance, Shortness of Breath with Activity, Physical Impairments, Unsteady Gait/Balance, Fall Risk Patient is unable to leave the home: Without Aid of Supportive Devices (crutches, cane, wheelchair, walker), Without the assistance of another person - Additional Disciplines Additional Disciplines Needed/Ordered: Occupational Therapy
[2019-06-16 05:30] VITALS: BP 141/80; PULSE 84
[2019-06-16] MEDS: Metoprolol Tartrate 100 MG Tablet 200 MG PO ×2 (05:30→17:55)
[2019-06-16] MEDS: Menthol/Lanolin/Calamine/Znox 113 GM Tube 1 APPLIC TOPICAL ×2 (05:32→20:35)
[2019-06-16 06:31] LABS: Bedside Glucose 168 mg/dL (70-110)
[2019-06-16] MEDS: Glimepiride 1 MG Tablet PO (08:30)
[2019-06-16] MEDS: Iron Polysaccharide Complex 150 MG CAPSULE PO (08:30)
[2019-06-16] MEDS: Aspirin 81 MG TAB.CHEW PO (08:30)
[2019-06-16 15:44] VITALS: BP 162/53; PULSE 83; RESP 18; TEMP 36.6; O2SAT 100
[2019-06-16 17:55] VITALS: PULSE 84
[2019-06-16] MEDS: Losartan Potassium 50 MG Tablet 100 MG PO (20:33)
[2019-06-16] MEDS: amLODIPine 2.5 MG Tablet PO (20:33)
[2019-06-16] MEDS: Latanoprost 0.005% 1 Bottle 1 DRP OPHTHALMIC (20:34)
[2019-06-16] MEDS: Atorvastatin Calcium 10 MG Tablet 5 MG PO (20:34)
[2019-06-16 20:46] VITALS: PULSE 83; RESP 18; O2SAT 100
[2019-06-17 05:56] VITALS: BP 156/70; PULSE 74
[2019-06-17] MEDS: Metoprolol Tartrate 100 MG Tablet 200 MG PO ×2 (05:56→17:23)
[2019-06-17] MEDS: Menthol/Lanolin/Calamine/Znox 113 GM Tube 1 APPLIC TOPICAL ×2 (05:59→20:44)
[2019-06-17 06:36] LABS: Bedside Glucose 189 mg/dL (70-110)
[2019-06-17] MEDS: Aspirin 81 MG TAB.CHEW PO (07:56)
[2019-06-17] MEDS: Glimepiride 1 MG Tablet PO (07:56)
[2019-06-17] MEDS: Iron Polysaccharide Complex 150 MG CAPSULE PO (07:56)
[2019-06-17 11:20] VITALS: PULSE 81; RESP 18; O2SAT 98
[2019-06-17 15:40] VITALS: BP 145/61; PULSE 86; RESP 18; TEMP 36.6; O2SAT 95
[2019-06-17 17:23] VITALS: BP 145/61; PULSE 86
[2019-06-17] MEDS: Losartan Potassium 50 MG Tablet 100 MG PO (20:37)
[2019-06-17] MEDS: Atorvastatin Calcium 10 MG Tablet 5 MG PO (20:37)
[2019-06-17] MEDS: amLODIPine 2.5 MG Tablet PO (20:38)
[2019-06-17] MEDS: Latanoprost 0.005% 1 Bottle 1 DRP OPHTHALMIC (20:38)
[2019-06-18 05:42] VITALS: BP 153/57; PULSE 80
[2019-06-18] MEDS: Metoprolol Tartrate 100 MG Tablet 200 MG PO (05:42)
[2019-06-18] MEDS: Menthol/Lanolin/Calamine/Znox 113 GM Tube 1 APPLIC TOPICAL (05:45)
[2019-06-18 06:35] LABS: Bedside Glucose 165 mg/dL (70-110)
[2019-06-18] MEDS: Aspirin 81 MG TAB.CHEW PO (09:00)
[2019-06-18] MEDS: Iron Polysaccharide Complex 150 MG CAPSULE PO (09:00)
[2019-06-18] MEDS: Glimepiride 1 MG Tablet PO (09:00)
[2019-06-18 10:00] VITALS: PULSE 80; O2SAT 100
[2019-06-18 11:33] VITALS: BP 143/45; PULSE 82; RESP 16; TEMP 37.1; O2SAT 100
== END 2019-06-18 10:15 | disposition home health service (06) | DRG 949 ==
PROVIDERS: Admitting Provider Family Medicine Geriatric Medicine; Family Provider Internal Medicine; PCP Internal Medicine; Referring Provider Family Medicine Geriatric Medicine; Visit Provider Family Medicine Geriatric Medicine
DX: Z48.815 Encounter for surgical aftercare following surgery on the digestive system (principal); J69.0 Pneumonitis due to inhalation of food and vomit; E78.5 Hyperlipidemia, unspecified; E11.9 Type 2 diabetes mellitus without complications; I10 Essential (primary) hypertension; Z87.891 Personal history of nicotine dependence; Z90.49 Acquired absence of other specified parts of digestive tract; Z23 Encounter for immunization; H40.9 Unspecified glaucoma
CPT/HCPCS: 36415; 80048; 82962; 85025; 97110; 97116; 97162; 97166; 97530; 97535; 97802; J7030; 90686; A4216

== ENCOUNTER 2019-06-26 02:57 | Emergency (ER) | payer MEDICARE, OTHER, SELFPAY ==
[2019-05-22 14:20] VITALS: BMI 22.8
[2019-06-26 03:00] VITALS: BP 187/65; PULSE 88; RESP 14; TEMP 36.3; O2SAT 98; BMI 21.6
--- NOTE | 2019-06-26 03:22 | ED.DCSUM_ITS ---
- ER Visit Summary Date of Service: 06/26/19 Chief Complaint: Wound on abdomen History of Present Illness: The patient is a 84 F who presents with a wound on her abdomen. She had a laparotomy for a bowel obstruction on May [address] Richards. Family notes that the patient had opening of the wound yesterday. She had mild drainage at that time. She has not had any fevers. They have been dressing at home. A home health nurse packed it yesterday and today. Patient denies any significant pain except on the superior portion of the wound. Physical Examination: Vital signs are reviewed. Abdominal exam is soft and nontender. She has wound dehiscence at 3 spots on her laparotomy incision. They are all 1 cm in length. There is no erythema. No drainage. Rest of her exam is unremarkable Test Results: None performed Emergency Department Course and Treatment: I called and discussed this with Dr. Richards. She recommended packing these with gauze and she will follow-up with the patient next week. Since there is no erythema or drainage I would not start any antibiotics. Patient will be discharged to follow-up with Dr. Richards Treatment Plan: [] Disposition: Discharge Impression: Wound dehiscence This note was generated with [employer] dictation software. It may contain incorrect words, spelling, and punctuation that were not noted in review of the chart prior to signing ED Disposition - Plan for ED Patient: Referrals: Claire Sharif MD [Primary Care Provider] -
--- NOTE | 2019-06-26 03:24 | ED.DEP ---
ED Disposition - Plan for ED Patient: Disposition: Home or Assisted Living Instructions: POST OP WOUND CHECK, General Referrals: Claire Sharif MD [Primary Care Provider] -
[2019-06-26 03:30] VITALS: RESP 16
--- NOTE | 2019-06-26 03:49 | ED.RN ---
Abd dressing removed and changed. Dr. Morton packed abd wound and this nurse covered with gauze and abd pads. pt denies any pain.
== END 2019-06-26 03:40 | disposition home or self-care (01) ==
PROVIDERS: Emergency Provider Emergency Medicine; Family Provider Internal Medicine; PCP Internal Medicine
DX: T81.31XA Disruption of external operation (surgical) wound, not elsewhere classified, initial encounter (principal); I10 Essential (primary) hypertension; Z79.84 Long term (current) use of oral hypoglycemic drugs; Z79.82 Long term (current) use of aspirin; Z79.899 Other long term (current) drug therapy
CPT/HCPCS: 99282

== ENCOUNTER → 2019-07-09 10:06 | Outpatient (CLI) | payer MEDICARE, OTHER, SELFPAY ==
[2019-06-26 03:00] VITALS: BMI 21.6
[2019-07-09 10:09] LABS: Mucous, Urine 0 SEEN /hpf (<or=2+)
[2019-07-09 10:25] LABS: Color, Urine Yellow (Yellow); Glucose, Dipstick Normal (Normal); Ketone-Dipstick Negative (Negative); Leukocyte Esterase-Dipstick 500 /ul (Negative); Nitrite-Dipstick Positive (Negative); Occult Blood-Urine 150 /ul (Negative); Protein-Dipstick 100 mg/dl (Negative); Specific Gravity, Urine 1.015 (1.002-1.030); Urine Bilirubin Dipstick Negative (Negative); Urine Clarity Cloudy (Clear); Urine Urobilinogen Normal (Normal)
[2019-07-09 10:38] LABS: Bacteria 2+ /hpf (None Seen); Red Blood Cells-Urine 10-25 SEEN /hpf (0-5); Squamous Epithelial Cells - UA 0-5 SEEN /hpf (5-10); White Blood Cells 50-100 SEEN /hpf (0-5)
== END ==
PROVIDERS: PCP Internal Medicine; Visit Provider Internal Medicine
DX: R39.9 Unspecified symptoms and signs involving the genitourinary system (principal)
CPT/HCPCS: 81001; 87086; 87088; 87186

== ENCOUNTER → 2020-02-15 14:46 | Outpatient (CLI) | payer MEDICARE, OTHER, SELFPAY ==
--- NOTE | 2020-02-15 14:54 | CT_ITS ---
STUDY: CTA OF THE ABDOMINAL AORTA AND BILATERAL LOWER EXTREMITIES REASON FOR EXAM: Female, 84 years old. SORES ON LT TOES, DIMINISHED PULSES RADIATION DOSAGE (If Supplied By Facility): CTDIvol = ( 6.85 ) mGy, DLP = ( 802.76 ) mGycm TECHNIQUE: Axial CT angiography multi-detector data acquisition was obtained from the to the following intravenous administration of 100 CC ISOVUE 370. Axial images and MIP images were reconstructed from the axial data set. Post-processing of the angiographic images was performed, with multiplanar reformation and 3D reconstruction. Individualized dose optimization techniques were used for this CT. TECHNICAL QUALITY: Good COMPARISON: None. Descriptors of Narrowing: None (0%) Mild (< 50%) Moderate (50-70%) Severe (70-90%) Subtotal/Total Occlusion (90-100%) Non-Evaluable (technically non-diagnostic FINDINGS: Abdominal aorta: Multifocal atherosclerosis, near circumferential without aneurysm or dissection. Celiac and superior mesenteric arteries: Atherosclerosis without hemodynamically significant stenosis. Inferior mesenteric artery: No demonstrated narrowing. Right renal artery(arteries): Atherosclerosis with moderate stenosis at its origin. Left renal artery(arteries): Atherosclerosis with moderate stenosis at its origin. Right common iliac artery: Circumferential heavy atherosclerosis at the origin with severe stenosis. There is also moderate stenosis of the distal common iliac artery just prior to the iliac artery bifurcation. Right external iliac artery: Relatively small caliber as compared to the left external iliac artery although no focal, discrete stenosis is identified. Right internal iliac artery: There is mild diffuse narrowing. Left common iliac artery: Near circumferential moderate atherosclerosis with moderate stenosis. Left external iliac artery: Mild multifocal atherosclerosis without hemodynamically significant stenosis. Left internal iliac artery: There is mild diffuse narrowing. RIGHT LOWER EXTREMITY Right common femoral artery: No demonstrated narrowing. Right profundus femoris: No demonstrated narrowing. Right superficial femoral: Atherosclerosis predominantly in the distal and mid segments with a mild (45-50 %) stenosis in Felipe''s canal. Right popliteal artery: Eccentric calcified and noncalcified plaque in the proximal more than mid popliteal artery with a 60% moderately stenosis. Right tibioperoneal trunk: No demonstrated narrowing. Right anterior tibial artery: There is mild diffuse narrowing, with visualization of the vessel to the distal calf. Right posterior tibial artery: There is mild diffuse narrowing, with visualization of the vessel to the distal calf. Right peroneal artery: There is mild diffuse narrowing, with visualization of the vessel to the distal calf. LEFT LOWER EXTREMITY Left common femoral artery: No demonstrated narrowing. Left profundus femoris: No demonstrated narrowing. Left superficial femoral: Atherosclerosis predominantly in the distal and mid segments with a mild (30-40 %) stenosis in Felipe''s canal. Left popliteal artery: Eccentric calcified and noncalcified plaque in the proximal more than mid popliteal artery with a 65 % moderately stenosis. Left tibioperoneal trunk: No demonstrated narrowing. Left anterior tibial artery: There is mild diffuse narrowing, with visualization of the vessel to the distal calf. Left posterior tibial artery: There is mild diffuse narrowing, with visualization of the vessel to the distal calf. Left peroneal artery: There is mild diffuse narrowing, with visualization of the vessel to the distal calf. Mild fibrotic changes in the lung bases. There are mitral valve calcifications. Diminished density throughout the liver compatible with hepatic steatosis. There is a benign granuloma of the spleen. Gallbladder is contracted. Common duct is dilated measuring 12 mm but no intrahepatic bile duct dilation. Pancreas is normal. Kidneys are symmetric in size and shape without evidence of hydronephrosis or solid renal mass. Homogenous unilocular low density cyst of the left kidney measures 3.9 cm with Hounsfield units measuring 12, compatible with a benign cyst, unchanged since prior abdomen/pelvis CT. Small bowel and colon are unremarkable. The appendix is not seen. There appears to be a surgical anastomosis of colon in the right lower quadrant. No retroperitoneal adenopathy. Uterus is atrophic. Minor degenerative changes of the lumbar spine. CT/CTA Abd w/Runoff W/WO Contrast IMPRESSION: 1. Right worse than left common iliac artery atherosclerosis with severe right and moderate left stenoses. 2. Bilateral superficial femoral artery atherosclerosis with bilateral (right worse than left) and distal SFA stenoses. 3. Bilateral popliteal artery atherosclerosis with left worse than right moderate stenoses. 4. Three-vessel runoff to the bilateral ankles. 5. Bilateral renal artery atherosclerosis with moderate stenosis. CBD dilation without intrahepatic bile duct dilation. Distal/ampullary obstruction cannot be excluded. 6. Circumferential wall thickening of the lower esophagus may represent chronic esophagitis, however, neoplasm cannot be excluded. Recommend correlating with patient''s symptoms and endoscopy, if clinically appropriate. Electronically Signed: Rob Liu MD ([facility]) at 10:14 EDT , Service support ,
[2020-02-16 08:00] LABS: CREATININE FINGERSTICK 0.75 mg/dL (0.55-1.02); EGFR FINGERSTICK > 60 mL/min (>60)
== END ==
PROVIDERS: PCP Internal Medicine
DX: R09.89 Other specified symptoms and signs involving the circulatory and respiratory systems (principal)
CPT/HCPCS: 75635; Q9967

== ENCOUNTER 2023-06-08 14:08 | Inpatient (IN) | payer MEDICARE, OTHER, SELFPAY ==
[2023-06-08] VITALS (14 sets, daily range): BP systolic 91–162; BP diastolic 45–96; PULSE 110–163; RESP 16–34; TEMP 37.4–39.7; O2SAT 92–98; BMI 20.6; BMI 16.7
--- NOTE | 2023-06-08 14:27 | RAD_ITS ---
HISTORY: sepsis protocol -- -- RECENT UTI, FEVER OF 105. TECHNIQUE: XR Chest 1 View. COMPARISON: 05/26/2019. FINDINGS: CARDIOMEDIASTINAL BORDERS: Cardiac silhouette within normal limits in size with mitral valve calcification. Mediastinal contour unremarkable with calcification of the aorta. LUNGS: Chronic mild left basilar scarring. PLEURA: No pleural effusion or pneumothorax seen. OSSEOUS STRUCTURES: Degenerative changes. RAD/Chest 1 View (Portable) IMPRESSION: No acute cardiopulmonary process identified. Electronically Signed: Deanna Avila MD at 15:01 EDT ,
--- NOTE | 2023-06-08 14:27 | EKG12_ITS ---
Test Reason : HIGH HR Blood Pressure : / mmHG Vent. Rate : 153 BPM Atrial Rate : 153 BPM P-R Int : 126 ms QRS Dur : 072 ms QT Int : 316 ms P-R-T Axes : 074 003 039 degrees QTc Int : 504 ms Critical Test Result: High HR Sinus tachycardia Otherwise normal ECG Confirmed by DEVEN ANDRADE, HODAN ([id number]), editor index CHANELLE JACK ([id number]) on 06/12/2023 11:33:53 AM Referred By: Confirmed By:HODAN CARVALHO MD
--- NOTE | 2023-06-08 14:29 | EX.ED.DYSGE1 ---
HPI <YONY Zhang - Last Filed: 06/08/23 16:28> History of Present Illness Chief Complaint: Fever Narrative Narrative: Patient presenting today with her daughter due to concerns for a fever. Daughter reports that yesterday patient was chilled throughout the day and needed to turn the thermostat up and was requiring extra blankets, she was visibly shaking due to feeling so cold. She was urinating less than normal yesterday and today but over the past few days was urinating more than normal. Patient reports having dysuria. Today, daughter checked her temperature and she had a low-grade fever so she called EMS. Patient reports that she has been having normal bowel movements and denies abdominal pain, nausea, vomiting, diarrhea, chest pain, and shortness of breath. PMH includes HTN, hyperlipidemia, and diabetes mellitus. PFSH <YONY Zhang - Last Filed: 06/08/23 16:28> PFSH Medical History Urinary tract infection Home Medications latanoprost 0.005 % eye drops 1 drp QHS Check with primary doctor 04/04/17 [History Last Taken Unknown] losartan 100 mg tablet 100 mg PO QHS Check with primary doctor 04/04/17 [History Last Taken Unknown] metoprolol tartrate 100 mg tablet 200 mg PO BID Check with primary doctor 04/04/17 [History Last Taken 05/21/19] simvastatin 10 mg tablet (Zocor) 10 mg PO QHS Check with primary doctor 04/04/17 [History Last Taken 05/21/19 21:00] acetaminophen 500 mg tablet 1,000 mg (2 x 500 mg) PO Q6H PRN Pain Score 1-3/10 06/15/19 [Rx Last Taken Unknown] aspirin 81 mg chewable tablet 81 mg PO DAILY@0800 06/15/19 [Rx Last Taken Unknown] amlodipine 2.5 mg tablet 10 mg PO 199906/08/23 [History Last Taken Unknown] glimepiride 1 mg tablet 2 mg PO DAILY@0800 06/08/23 [History Last Taken Unknown] metformin 500 mg tablet 1,000 mg PO BID 06/08/23 [History Last Taken Unknown] Allergy/AdvReac Type Severity Reaction Status Date / Time betaxolol [From Betoptic] Allergy Itching Verified 06/08/23 14:18 brimonidine [From Alphagan P] Allergy Itching Verified 06/08/23 14:18 cephalexin [From Keflex] Allergy Rash Verified 06/08/23 14:18 nabumetone [From Relafen] Allergy Rash Verified 06/08/23 14:18 Social History Smoking Status: Former smoker ROS <YONY Zhang - Last Filed: 06/08/23 16:28> ROS ED Constitutional Constitutional ED: Reports chills, fatigue and fever(s) Eyes Eyes: Denies change in vision Cardiovascular Cardiovascular: Denies chest pain or palpitations Respiratory/Chest Respiratory/Chest: Denies cough, dyspnea or dyspnea on exertion Gastrointestinal Gastrointestinal: Denies abdominal pain, constipation, diarrhea, nausea or vomiting Genitourinary Genitourinary ED: Reports dysuria, urinary frequency and urinary urgency; Denies hematuria Musculoskeletal Musculoskeletal: Denies arthralgias or myalgias Integumentary Denies rash Neurologic Neurologic: Denies weakness EXAM <YONY Zhang - Last Filed: 06/08/23 16:28> Physical Exam Const Vital Signs: 06/08/23 14:10 06/08/23 14:14 06/08/23 14:41 Temperature 103.4 F H Temperature Source Oral Pulse Rate 163 H 148 H Respiratory Rate 24 H Respiratory Effort Normal Non-Labored Respiratory Pattern Normal Blood Pressure 148/57 H 131/88 H Blood Pressure Mean 87 102 Pulse Ox 98 Oxygen Delivery Method Room Air 06/08/23 15:02 06/08/23 15:49 Temperature 102.5 F H 102.3 F H Temperature Source Core Core Pulse Rate 150 H 142 H Respiratory Rate 24 H 20 H Respiratory Effort Respiratory Pattern Blood Pressure 162/96 H 126/51 H Blood Pressure Mean 118 76 Pulse Ox 98 96 Oxygen Delivery Method Room Air Room Air Positive well nourished, well developed and no apparent distress General Appearance ED: well developed HEENT Reports normocephalic and head/scalp atraumatic Mouth ED: Yes moist mucous membranes normal Eyes PERRL and EOMs intact bilaterally Neck full ROM and supple Chest Wall inspection of chest normal Resp normal respiratory effort and clear to auscultation bilaterally Cardio regular rate and regular rhythm GI soft to palpation, non-tender, non-distended and no masses Back/Spine normal ROM and normal to inspection Extremity normal to inspection and full ROM Neuro oriented x3, CN's II-XII intact bilaterally, moves all extremities, no focal motor deficits and no sensory deficits noted Sensorium / Orientation: awake and alert Psych mental status grossly normal and thought process normal Skin no rashes or lesions noted and no wounds <Dr. Tai Dickens MD - Last Filed: 06/08/23 15:50> Physical Exam Const Vital Signs: 06/08/23 14:10 06/08/23 14:14 06/08/23 14:41 Temperature 103.4 F H Temperature Source Oral Pulse Rate 163 H 148 H Respiratory Rate 24 H Respiratory Effort Normal Non-Labored Respiratory Pattern Normal Blood Pressure 148/57 H 131/88 H Blood Pressure Mean 87 102 Pulse Ox 98 Oxygen Delivery Method Room Air 06/08/23 15:02 06/08/23 15:49 Temperature 102.5 F H 102.3 F H Temperature Source Core Core Pulse Rate 150 H 142 H Respiratory Rate 24 H 20 H Respiratory Effort Respiratory Pattern Blood Pressure 162/96 H 126/51 H Blood Pressure Mean 118 76 Pulse Ox 98 96 Oxygen Delivery Method Room Air Room Air Sepsis Attestation <Dr. Tai Dickens MD - Last Filed: 06/08/23 15:50> Sepsis Alert: Yes Sepsis Attestation: Agree w/Sepsis Date exam was performed: 06/08/23 Time exam was performed: 14:30 Possible Source of Sepsis: Genitourinary Sepsis Organ Dysfunction Criteria Present: Creatinine > 2.0 mg/dL and Lactic Acid > 2 mmol/L Fluid Resuscitation Fluid resuscitation indicated?: Yes Fluid Resuscitation ordered: 30 ml/kg fluid bolus ordered Amount of fluid ordered: 2,000 Sepsis Note Date exam was performed: 06/08/23 Time exam was performed: 16:00 Sepsis Attestation: Sepsis re-evaluation was performed (improved HR, stable BP on reevaluation in response to IVFB) [facility] <YONY Zhang - Last Filed: 06/08/23 16:28> [facility] Narrative Medical decision making narrative: Patient presenting today with her daughter due to concerns for infection, she had a fever today that was low-grade and has had urinary symptoms over the past few days. She is visibly chilled, she is tachycardic, tachypneic, and febrile. Sepsis protocol has been initiated. Labs to be obtained to rule out leukocytosis, anemia, electrolyte abnormality, MERCEDES, UTI, blood cultures will be obtained. She has been started on IV fluids and given Tylenol. She does have a UTI, she was started on Levaquin due to allergy to cephalosporins. She appears to have an MERCEDES as well. She has been given additional fluids, we did speak with the hospitalist and she will be admitted in stable condition. She is comfortable with plan. Lab Data Attestation: I reviewed the patient's lab results. Lab results narrative: H&H 8.8 and 29 1, sodium 134, potassium 5.3, BUN 54, creatinine 2.51, GFR 19 Labs: Laboratory Results - last 24 hr 06/08/23 06/08/23 14:10 15:00 WBC 10.8 RBC 3.12 L Hgb 8.8 L Hct 29.1 L MCV 93.3 MCH 28.2 MCHC 30.2 L RDW Std Deviation 70.0 H RDW Coeff of Alanna 20.3 H Plt Count 481 H MPV 9.3 Immature Gran % (Auto) 0.500 Neut % (Auto) 77.1 H Lymph % (Auto) 10.8 L Runnels % (Auto) 11.1 H Eos % (Auto) 0.0 Baso % (Auto) 0.5 Absolute Neuts (auto) 8.3 H Absolute Lymphs (auto) 1.16 Nucleated RBC % 0 Differential Comment SCANNED PT 16.8 H INR 1.4 APTT 41.7 H Sodium 134 L Potassium 5.3 H Chloride 105 Carbon Dioxide 18.0 L Anion Gap 11 BUN 54 H Creatinine 2.51 H Est GFR (MDRD) Af Amer 23 L Est GFR (MDRD) Non-Af 19 L BUN/Creatinine Ratio 21.5 H Glucose 204 H Lactic Acid 2.0 Calcium 9.2 Total Bilirubin 0.60 AST 19 ALT 14 Alkaline Phosphatase 69 Total Protein 8.4 H Albumin 2.5 L Globulin 5.9 H Albumin/Globulin Ratio 0.4 L Urine Color Yellow Urine Clarity Turbid Urine pH 5.0 Ur Specific [place] 1.020 Urine Protein 100 H Urine Glucose (UA) Normal Urine Ketones 5 H Urine Occult Blood 250 H Urine Nitrite Negative Urine Bilirubin Negative Urine Urobilinogen Normal Ur Leukocyte Esterase 500 H Urine RBC 50-100 SEEN Urine WBC >100 SEEN Ur Squamous Epith Cells 0-5 SEEN Amorphous Sediment 1+ URATE Urine Bacteria 1+ Urine Mucus 0 SEEN Radiography X-Ray: Read by ED Physician and Read by Radiologist Diagnostic Testing: Clinical Impression(s) from Imaging Studies Chest X-Ray 06/08/23 14:27 IMPRESSION: No acute cardiopulmonary process identified. Electronically Signed: Deanna Avila MD at 15:01 EDT , <Dr. Tai Dickens MD - Last Filed: 06/08/23 15:50> [facility] Lab Data Labs: Laboratory Results - last 24 hr 06/08/23 06/08/23 14:10 15:00 WBC 10.8 RBC 3.12 L Hgb 8.8 L Hct 29.1 L MCV 93.3 MCH 28.2 MCHC 30.2 L RDW Std Deviation 70.0 H RDW Coeff of Alanna 20.3 H Plt Count 481 H MPV 9.3 Immature Gran % (Auto) 0.500 Neut % (Auto) 77.1 H Lymph % (Auto) 10.8 L [place] % (Auto) 11.1 H Eos % (Auto) 0.0 Baso % (Auto) 0.5 Absolute Neuts (auto) 8.3 H Absolute Lymphs (auto) 1.16 Nucleated RBC % 0 Differential Comment SCANNED PT 16.8 H INR 1.4 APTT 41.7 H Sodium 134 L Potassium 5.3 H Chloride 105 Carbon Dioxide 18.0 L Anion Gap 11 BUN 54 H Creatinine 2.51 H Est GFR (MDRD) Af Amer 23 L Est GFR (MDRD) Non-Af 19 L BUN/Creatinine Ratio 21.5 H Glucose 204 H Lactic Acid 2.0 Calcium 9.2 Total Bilirubin 0.60 AST 19 ALT 14 Alkaline Phosphatase 69 Total Protein 8.4 H Albumin 2.5 L Globulin 5.9 H Albumin/Globulin Ratio 0.4 L Urine Color Yellow Urine Clarity Turbid Urine pH 5.0 Ur Specific [place] 1.020 Urine Protein 100 H Urine Glucose (UA) Normal Urine Ketones 5 H Urine Occult Blood 250 H Urine Nitrite Negative Urine Bilirubin Negative Urine Urobilinogen Normal Ur Leukocyte Esterase 500 H Urine RBC 50-100 SEEN Urine WBC >100 SEEN Ur Squamous Epith Cells 0-5 SEEN Amorphous Sediment 1+ URATE Urine Bacteria 1+ Urine Mucus 0 SEEN Radiography Diagnostic Testing: Clinical Impression(s) from Imaging Studies Chest X-Ray 06/08/23 14:27 IMPRESSION: No acute cardiopulmonary process identified. Electronically Signed: Deanna Avila MD at 15:01 EDT Reading Location ID and State: [facility] / [place] Tel , Service support , Rhythm Strip Rhythm Strip: Sinus Tach Rate: 140 Ectopy: None EKG Initial EKG: Attestation: I personally reviewed and interpreted this EKG as follows: Interpretation: No Acute Injury Pattern and Sinus Tachycardia Comments: Tremor artifact, otherwise unremarkable. No hyperkalemia changes. Management Discussion w/another healthcare provider: Hospitalist Treatment and Re-Evaluation Comments:: I have personally performed a face to face assessment of the patient and have reviewed the CEE Note. I performed a substantive portion of the visit including all aspects of the following. My licea findings include: History is 2-3 days urinary symptoms, feeling poorly today with a low-grade fever at home prior to getting here and having temperature to be 103.4. Pain in her low back not lateralizing, no abdominal pain, no vomiting, he is generally weak and having trouble getting around because of that. Exam is keenly alert and oriented x3 tachycardic, abdomen benign for me, with repeated evaluation she states it is not hurting her with palpation and she has no CVA tenderness. Medical Decison Making: Suspect she is septic from urinary source. Septic work-up obtained. Likely admission given age, vital signs, and generalized weakness. Patient and family comfortable with this overall plan. Other additions or changes: [None] <Dr. Tai Dickens MD - Last Filed: 06/08/23 15:50> Critical Care Time Critical Care Time: Yes Critical care time (excluding procedures): 30-74 minutes (34 min), Including time spent:, Discussing w/Patient &/or Family/Set Off Blocker, Discussing w/Consultants, Arranging Admission or Transfer and Performing Direct Patient Care at Bedside Discharge Plan Dx/Rx/DC Orders Clinical Impression: Sepsis, MERCEDES (acute kidney injury), Acute UTI Disposition Disposition: Acute Care Hospital [facility] Discharge Date/Time: 06/08/23 16:25
[2023-06-08] MEDS: 0.9% Normal Saline (1000mL) 1,000 ML 999 ML IV ×2 (14:30→15:48)
[2023-06-08] MEDS: Acetaminophen 325 MG Tablet 650 MG PO (14:30)
[2023-06-08 14:44] LABS: Absolute Lymphocyte Count 1.16 X10^3/uL (0.83-4.51); Absolute Neutrophil Count 8.3 X10^3/uL (2.0-7.7); Basophil# 0.05 X10^3/uL; Basophil% 0.5 % (0-1); Hematocrit 29.1 % (37-47); Hemoglobin 8.8 g/dL (12.0-15.0); Lymphocyte # 1.16 X10^3/ul (0.83-4.51); Lymphocyte % 10.8 % (19-41); Mean Corp Hgb Conc 30.2 g/dL (32-36); Mean Corpuscular Hgb 28.2 pg (27.0-32.0); Mean Corpuscular Volume 93.3 fL (81-99); Mean Platelet Vol. 9.3 fl (6.2-12.0); Monocyte% 11.1 % (0-10); NRBC Flagged by Analyzer 0 % (0-5); Neutrophil # 8.32 X10^3/uL (2.7-7.7); Neutrophil % 77.1 % (47-70); POSITIVE MORPHOLOGY YES; Platelet Count 481 K/mm3 (150-450); RBC Distribution Width CV 20.3 % (11.6-14.6); Red Blood Count 3.12 M/mm3 (4.2-5.4); White Blood Count 10.8 K/mm3 (4.4-11.0)
[2023-06-08 14:52] LABS: Differential Indicated SCAN CRITERIA MET
[2023-06-08 14:53] LABS: International Normalized Ratio 1.4; Prothrombin Time (Protime)PT. 16.8 SECONDS (11.7-14.9)
[2023-06-08 14:54] LABS: Partial Thromboplast Time 41.7 Seconds (24.1-36.2)
[2023-06-08 14:56] LABS: ALB/GLOB Ratio 0.4 RATIO (0.9-2.4); AST(SGOT) 19 U/L (15-37); Alanine Aminotransfer ALT/SGPT 14 U/L (13-56); Albumin, Serum 2.5 g/dL (3.2-5.0); Alkaline Phosphatase 69 U/L (45-117); Anion Gap 11 (5-15); BUN 54 mg/dL (7-18); BUN/Creat Ratio 21.5 RATIO (10-20); Calcium,Total 9.2 mg/dL (8.5-10.1); Chloride 105 mmol/L (98-107); Creatinine, Serum 2.51 mg/dL (0.55-1.02); EST Glomerular Filtration Rate 19 mL/min (>60); Est Glom Filt Rate - Afr Amer 23 mL/min (>60); Globulin 5.9 g/dL (2.2-4.2); Glucose 204 mg/dL (74-106); Potassium 5.3 mmol/L (3.5-5.1); Protein, Total 8.4 g/dL (6.4-8.2); Sodium Level 134 mmol/L (136-145)
[2023-06-08 15:06] LABS: Mucous, Urine 0 SEEN /hpf (<or=2+)
--- NOTE | 2023-06-08 15:14 | ED.RN ---
LACTIC 2.0 .DR JONES
[2023-06-08 15:30] LABS: Color, Urine Yellow (Yellow); Glucose, Dipstick Normal (Normal); Ketone-Dipstick 5 mg/dl (Negative); Leukocyte Esterase-Dipstick 500 /ul (Negative); Nitrite-Dipstick Negative (Negative); Occult Blood-Urine 250 /ul (Negative); Protein-Dipstick 100 mg/dl (Negative); Urine Bilirubin Dipstick Negative (Negative); Urine Clarity Turbid (Clear); Urine Urobilinogen Normal (Normal)
[2023-06-08 15:38] LABS: White Blood Cells >100 SEEN /hpf (0-5)
[2023-06-08 15:39] LABS: Amorphous Sediment 1+ URATE; Bacteria 1+ /hpf (None Seen); Red Blood Cells-Urine 50-100 SEEN /hpf (0-5); Squamous Epithelial Cells - UA 0-5 SEEN /hpf (5-10)
[2023-06-08 15:42] LABS: Differential Comment SCANNED
[2023-06-08] MEDS: levoFLOXacin IV 750 MG/150 ML BAG 100 MG IV (15:52)
--- NOTE | 2023-06-08 16:07 | NURSING ---
PCU [facility] SEPSIS, UTI
[2023-06-08] MEDS: 0.9% Normal Saline (1000mL) 1,000 ML 100 ML IV (17:00)
--- NOTE | 2023-06-08 17:13 | PCM.HP.STD ---
HPI - General General Date of Admission: 06/08/23 HPI Narrative VERONICA HUNT, is a 88 F who presents to the hospital secondary to a fever and not feeling very well. She states that about 2 to 3 weeks ago she was given a prescription for antibiotics for UTI by her PCP but it sounds if this was given over the phone so there is not appear to be any culture data or identification. She has reported some dysuria over the last several days and has been feeling cold. Unfortunately do not have any recent lab work for her to be able to compare what her new baselines are because she is anemic to 8.8 potentially an MERCEDES at 2.51 however all of her most recent lab work in our system is from 2019. She was found to be in severe sepsis based on her vital and her lab work. UA indicates another UTI. Urine cultures were sent from the ER [facility] Medical History (Updated 06/08/23 @ 17:[address] Francisco Motta MD) Urinary tract infection Home Medications latanoprost 0.005 % eye drops 1 drp QHS Check with primary doctor 04/04/17 [History Last Taken Unknown] losartan 100 mg tablet 100 mg PO QHS Check with primary doctor 04/04/17 [History Last Taken Unknown] metoprolol tartrate 100 mg tablet 200 mg PO BID Check with primary doctor 04/04/17 [History Last Taken 05/21/19] simvastatin 10 mg tablet (Zocor) 10 mg PO QHS Check with primary doctor 04/04/17 [History Last Taken 05/21/19 21:00] acetaminophen 500 mg tablet 1,000 mg (2 x 500 mg) PO Q6H PRN Pain Score 1-3/10 06/15/19 [Rx Last Taken Unknown] aspirin 81 mg chewable tablet 81 mg PO DAILY@0800 06/15/19 [Rx Last Taken Unknown] amlodipine 2.5 mg tablet 10 mg PO 199906/08/23 [History Last Taken Unknown] glimepiride 1 mg tablet 2 mg PO DAILY@0800 06/08/23 [History Last Taken Unknown] metformin 500 mg tablet 1,000 mg PO BID 06/08/23 [History Last Taken Unknown] Allergy/AdvReac Type Severity Reaction Status Date / Time betaxolol [From Betoptic] Allergy Itching Verified 06/08/23 14:18 brimonidine [From Alphagan P] Allergy Itching Verified 06/08/23 14:18 cephalexin [From Keflex] Allergy Rash Verified 06/08/23 14:18 nabumetone [From Relafen] Allergy Rash Verified 06/08/23 14:18 Family History (Updated 06/08/23 @ 17:[address] Francisco Motta MD) Other Diabetes Heart disease Surgical History (Updated 06/08/23 @ 17:[address] Francisco Motta MD) Status post laparoscopy with lysis of adhesions Social History Smoking Status: Former smoker ROS Constitutional Constitutional: Reports chills, fatigue and fever(s); Denies malaise Eyes Eyes: Denies blurry vision ENT HEENT: Denies headache(s) or nasal discharge Cardiovascular Cardiovascular: Denies chest pain, dyspnea on exertion or syncope Respiratory/Chest Respiratory/Chest: Denies cough, shortness of breath at rest or shortness of breath with exertion Gastrointestinal Gastrointestinal: Denies constipation, diarrhea, nausea or vomiting Genitourinary Genitourinary: Reports dysuria Neurologic Neurologic: Denies focal weakness, numbness or tremor(s) Psychiatric Psychiatric: Denies anxiety or depression Vital Signs Vital Signs Vital Signs: 06/08/23 14:10 06/08/23 14:14 06/08/23 14:41 Temperature 103.4 F H Temperature Source Oral Pulse Rate 163 H 148 H Respiratory Rate 24 H Respiratory Effort Normal Non-Labored Respiratory Pattern Normal Blood Pressure 148/57 H 131/88 H Blood Pressure Mean 87 102 Blood Pressure Source Blood Pressure Position Blood Pressure Location Pulse Ox 98 Oxygen Delivery Method Room Air 06/08/23 15:02 06/08/23 15:49 06/08/23 16:27 Temperature 102.5 F H 102.3 F H 102.3 F H Temperature Source Core Core Pulse Rate 150 H 142 H 135 H Respiratory Rate 24 H 20 H 20 H Respiratory Effort Respiratory Pattern Blood Pressure 162/96 H 126/51 H 126/51 H Blood Pressure Mean 118 76 76 Blood Pressure Source Blood Pressure Position Blood Pressure Location Pulse Ox 98 96 96 Oxygen Delivery Method Room Air Room Air 06/08/23 17:02 06/08/23 17:11 Temperature 100.0 F H 100.0 F H Temperature Source Oral Oral Pulse Rate 131 H 131 H Respiratory Rate 18 18 Respiratory Effort Respiratory Pattern Blood Pressure 114/49 L 114/49 L Blood Pressure Mean 70 70 Blood Pressure Source Monitor Blood Pressure Position Semi-Fowlers Blood Pressure Location Left Arm Pulse Ox 96 96 Oxygen Delivery Method Room Air Room Air Weight Weight: 97 lb 10.636 oz Body Mass Index (BMI) 16.7 Physical Exam Narrative General: Alert, Oriented x3, Cooperative, No apparent distress HEENT: Atraumatic, PERRLA, EOMI, Normocephalic, pale Oral: Dry mucosa Neck: Supple, No JVD Lungs: Diminished, Normal air movement, No rhonchi, No wheeze, No rales Cardiovascular: Tachycardic, Regular Rhythm, Normal S1, Normal S2, No murmurs Abdomen: Soft, Non Tender, Non-Distended, No Hepato-splenomegaly Extremities: No edema, Capillary Refill Less than 3 Seconds Skin: No rashes, No breakdown Musculoskeletal: No Tenderness to Palpation of Joints or Extremities Neurological: Moves all extremities, Sensory exam intact to light touch and pain Psych/Mental Status: Normal Affect, Appropriate Results Lab / Micro Data 06/08/23 14:10 06/08/23 14:10 Labs: Laboratory Results - last 24 hr 06/08/23 14:10: WBC 10.8, RBC 3.12 L, Hgb 8.8 L, Hct 29.1 L, MCV 93.3, MCH 28.2, MCHC 30.2 L, RDW Std Deviation 70.0 H, RDW Coeff of Alanna 20.3 H, Plt Count 481 H, MPV 9.3, Immature Gran % (Auto) 0.500, Neut % (Auto) 77.1 H, Lymph % (Auto) 10.8 L, [place] % (Auto) 11.1 H, Eos % (Auto) 0.0, Baso % (Auto) 0.5, Absolute Neuts (auto) 8.3 H, Absolute Lymphs (auto) 1.16, Nucleated RBC % 0, Differential Comment SCANNED, PT 16.8 H, INR 1.4, APTT 41.7 H, Sodium 134 L, Potassium 5.3 H, Chloride 105, Carbon Dioxide 18.0 L, Anion Gap 11, BUN 54 H, Creatinine 2.51 H, Est GFR (MDRD) Af Amer 23 L, Est GFR (MDRD) Non-Af 19 L, BUN/Creatinine Ratio 21.5 H, Glucose 204 H, Lactic Acid 2.0, Calcium 9.2, Total Bilirubin 0.60, AST 19, ALT 14, Alkaline Phosphatase 69, Total Protein 8.4 H, Albumin 2.5 L, Globulin 5.9 H, Albumin/Globulin Ratio 0.4 L 06/08/23 15:00: Urine Color Yellow, Urine Clarity Turbid, Urine pH 5.0, Ur Specific [place] 1.020, Urine Protein 100 H, Urine Glucose (UA) Normal, Urine Ketones 5 H, Urine Occult Blood 250 H, Urine Nitrite Negative, Urine Bilirubin Negative, Urine Urobilinogen Normal, Ur Leukocyte Esterase 500 H, Urine RBC 50-100 SEEN, Urine WBC >100 SEEN, Ur Squamous Epith Cells 0-5 SEEN, Amorphous Sediment 1+ URATE, Urine Bacteria 1+, Urine Mucus 0 SEEN Rhythm Strip Rhythm Strip: Sinus Tach Rate: 140 Ectopy: None Radiology Impression Chest X-Ray 06/08/23 14:27 IMPRESSION: No acute cardiopulmonary process identified. Electronically Signed: Deanna Avila MD at 15:01 EDT Reading Location ID and State: [facility] / [place] Tel , Service support , Assessment & Plan Assessment/Plan (1) Acute UTI: (2) Severe sepsis: PLAN: Plan 1. Severe sepsis secondary to UTI with MERCEDES ? She did recently get over a UTI couple weeks ago unfortunate no culture data was obtained at that time ? Continue with IV Cipro she has an allergy to Keflex ? Urine cultures pending ? Continue with IV fluids ? Creatinine currently at 2.51, this is elevated from prior though unclear what her recent baseline has been 2. HTN/HLD ? Blood pressures are currently stable we will resume home metoprolol ? We will hold her secondary to her elevated creatinine ? Can continue with her statin next 3. DM2/CKD 3 with possible anemia of chronic disease ? We will hold her home medications ? We will place her on sliding scale insulin ? Accu-Cheks ACHS ? We will check iron studies and trend her hemoglobin 4. Glaucoma ? Stable ? Continue with latanoprost DVT: Heparin Sepsis Attestation Date exam was performed: 06/08/23 Time exam was performed: 15:45 Possible Source of Sepsis: Genitourinary Sepsis Organ Dysfunction Criteria Present: Creatinine > 2.0 mg/dL and Serum CO2 < 20 mmol/L (on BMP) Fluid Resuscitation Fluid resuscitation indicated?: Yes Fluid Resuscitation ordered: 30 ml/kg fluid bolus ordered Sepsis Note Date exam was performed: 06/08/23 Time exam was performed: 18:18 Sepsis Attestation: Sepsis re-evaluation was performed Response to fluids: Fluid responsive hypotension Charges/Coding Visit Charges Inpatient E&M: 56592 Init Hosp L3
[2023-06-08 17:15] LABS: Ferritin 139 ng/mL (8-252); Iron 10 ug/dL (50-170); Iron Binding Capacity,Total 217 ug/dL (250-450); PERCENT IRON SATURATION 4.6 % (15.0-55.0)
[2023-06-08 18:31] LABS: Reflex Lactate? Y
[2023-06-08] MEDS: Metoprolol Tartrate 100 MG Tablet 200 MG PO (19:24)
[2023-06-08 19:39] LABS: Lactic Acid 0.8 mmol/L (0.4-1.9)
[2023-06-08] MEDS: Heparin Injection (Vial) 5,000 UNIT/ML VIAL 5000 UNIT SC (20:51)
[2023-06-08] MEDS: Acetaminophen 650 MG/20 ML UDC PO (22:06)
--- NOTE | 2023-06-08 22:54 | NURSING ---
This RN attempted to give pt pills after pt reported taking pills fine with just water. Pt choked on pills and spit them out. 94% on RA, pt stating she spit them all out. MD aware, speech consult placed.
[2023-06-08 23:22] LABS: Bedside Glucose 93 mg/dL (74-106)
[2023-06-09] VITALS (9 sets, daily range): BP systolic 110–149; BP diastolic 40–83; PULSE 100–130; RESP 18–24; TEMP 36.9–39.4; O2SAT 93–97
[2023-06-09] MEDS: 0.9% Normal Saline (1000mL) 1,000 ML 100 ML IV ×3 (03:38→22:09)
[2023-06-09 05:59] LABS: Absolute Lymphocyte Count 0.48 X10^3/uL (0.83-4.51); Absolute Neutrophil Count 5.7 X10^3/uL (2.0-7.7); Basophil# 0.02 X10^3/uL; Basophil% 0.3 % (0-1); Hematocrit 26.1 % (37-47); Hemoglobin 7.7 g/dL (12.0-15.0); Lymphocyte # 0.48 X10^3/ul (0.83-4.51); Lymphocyte % 7.2 % (19-41); Mean Corp Hgb Conc 29.5 g/dL (32-36); Mean Corpuscular Hgb 28.1 pg (27.0-32.0); Mean Corpuscular Volume 95.3 fL (81-99); Mean Platelet Vol. 9.1 fl (6.2-12.0); Monocyte# 0.45 X10^3/uL; Monocyte% 6.7 % (0-10); NRBC Flagged by Analyzer 0 % (0-5); Neutrophil # 5.72 X10^3/uL (2.7-7.7); Neutrophil % 85.4 % (47-70); POSITIVE DIFFERENTIAL YES; POSITIVE MORPHOLOGY YES; Platelet Count 346 K/mm3 (150-450); RBC Distribution Width CV 20.8 % (11.6-14.6); RBC Distribution Width SD 72.3 fl (35.1-43.9); Red Blood Count 2.74 M/mm3 (4.2-5.4); White Blood Count 6.7 K/mm3 (4.4-11.0)
[2023-06-09 06:04] LABS: Differential Indicated SCAN CRITERIA MET
[2023-06-09] MEDS: Menthol/Lanolin/Calamine/Znox 113 GM Tube 1 APPLIC TOPICAL ×3 (06:30→23:21)
[2023-06-09] MEDS: Heparin Injection (Vial) 5,000 UNIT/ML VIAL 5000 UNIT SC ×2 (06:30→22:09)
[2023-06-09 06:38] LABS: Anion Gap 7 (5-15); BUN 43 mg/dL (7-18); BUN/Creat Ratio 27.7 RATIO (10-20); Calcium,Total 8.3 mg/dL (8.5-10.1); Chloride 115 mmol/L (98-107); Creatinine, Serum 1.55 mg/dL (0.55-1.02); EST Glomerular Filtration Rate 34 mL/min (>60); Est Glom Filt Rate - Afr Amer 41 mL/min (>60); Estimated Creatinine Clearance 17.88 ml/min; Glucose 112 mg/dL (74-106); Potassium 4.4 mmol/L (3.5-5.1); Sodium Level 140 mmol/L (136-145)
[2023-06-09 06:40] LABS: Anisocytosis 2+
[2023-06-09] MEDS: Aspirin 81 MG TAB.CHEW PO (09:52)
[2023-06-09] MEDS: Glucerna Shake 120 ML LIQUID PO ×3 (09:52→16:14)
[2023-06-09] MEDS: Metoprolol Tartrate 100 MG Tablet 200 MG PO ×2 (09:52→22:07)
[2023-06-09] MEDS: Ciprofloxacin 400 MG/200 ML BAG 200 MG IV (09:52)
--- NOTE | 2023-06-09 11:10 | CASEMGMT ---
RN CM Face to Face with patient for initial transition planning/care coordination assessment. RN CM introduced self and role at [facility]. Patient lying in bed, alert and oriented. Patient willing to participate in assessment and is able to answer all questions appropriately. Care providers, pharmacy, and demographics verified. Patient wishes to discharge home, denies need for home health at this time. Patient states she has no further needs or concerns at this time. CM to follow for discharge planning needs that may arise. PCP: [facility] Specialists: [facility] Pharmacy: [facility] Insurance: [employer] Prescription Benefit: yes Living Will/HPOA: yes, daughter Aniyah Pelletier LNOK: daughter Living Arrangements: Patient lives with daughter in a first floor apartment with no steps to enter. Patient is independent for self care. Transportation: daughter DME/HHC: Patient has shower chair, cane, and grab bars at home. NO preivous SNF. Patient has had [facility] HHC in the past. Disposition Plan: Patient to discharge home with family support and follow-up plans in place. Shantell CAIN, RN, CM
[2023-06-09] MEDS: Insulin Lispro 100 UNIT/ML INSULN.PEN SC (11:11)
[2023-06-09 11:24] LABS: Bedside Glucose 169 mg/dL (74-106)
--- NOTE | 2023-06-09 11:27 | CASEMGMT ---
Social Work SW let pt know that we have a general POA on file, but not a healthcare POA or Living Will. Pt does think she has healthcare POA, SW asked her to have her daughter bring in the documents. Pt states understanding. NITIN Rasheed
[2023-06-09 11:31] LABS: Bedside Glucose 84 mg/dL (74-106)
--- NOTE | 2023-06-09 15:14 | PCM.PROGNOTE ---
Subjective Subjective Patient seen and examined. She had no active complaints and had an uneventful night. Her daughter was by her bedside. She denied any chest pain, fever, palpitations, dizziness, nausea, vomiting or another symptoms. Review of systems is otherwise negative. Objective Data Objective Data Vital Signs: Vital Signs Temp Pulse Resp BP Pulse Ox O2 Del Method 99.8 F H 130 H 18 114/63 94 Room Air 06/09/23 09:41 06/09/23 09:52 06/09/23 09:41 06/09/23 09:41 06/09/23 09:41 06/09/23 09:41 Oxygen Delivery Method Room Air Weight: 97 lb 10.636 oz Body Mass Index (BMI) 16.7 Intake & Output: Intake and Output for Last 24 Hours 06/07/23 06/08/23 06/09/23 23:59 23:59 23:59 Intake Total 2150 / 2150 2561.67 / 2561.67 Output Total 600 / 600 900 / 900 Balance 1550 / 1550 1661.67 / 1661.67 Lab / Micro Data 06/09/23 04:58 06/09/23 04:58 Labs: Laboratory Results - last 24 hr 06/08/23 14:10: Differential Comment SCANNED, Lactic Acid 2.0, Iron 10 L, TIBC 217 L, Iron Saturation 4.6 L, Ferritin 139 06/08/23 15:00: Urine Color Yellow, Urine Clarity Turbid, Urine pH 5.0, Ur Specific [place] 1.020, Urine Protein 100 H, Urine Glucose (UA) Normal, Urine Ketones 5 H, Urine Occult Blood 250 H, Urine Nitrite Negative, Urine Bilirubin Negative, Urine Urobilinogen Normal, Ur Leukocyte Esterase 500 H, Urine RBC 50-100 SEEN, Urine WBC >100 SEEN, Ur Squamous Epith Cells 0-5 SEEN, Amorphous Sediment 1+ URATE, Urine Bacteria 1+, Urine Mucus 0 SEEN 06/08/23 18:49: Lactic Acid 0.8 06/08/23 20:50: POC Glucose 93 06/09/23 04:58: WBC 6.7, RBC 2.74 L, Hgb 7.7 L, Hct 26.1 L, MCV 95.3, MCH 28.1, MCHC 29.5 L, RDW Std Deviation 72.3 H, RDW Coeff of Alanna 20.8 H, Plt Count 346, MPV 9.1, Immature Gran % (Auto) 0.400, Neut % (Auto) 85.4 H, Lymph % (Auto) 7.2 L, [place] % (Auto) 6.7, Eos % (Auto) 0.0, Baso % (Auto) 0.3, Absolute Neuts (auto) 5.7, Absolute Lymphs (auto) 0.48 L, Nucleated RBC % 0, Anisocytosis 2+, Sodium 140, Potassium 4.4, Chloride 115 H, Carbon Dioxide 18.0 L, Anion Gap 7, BUN 43 H, Creatinine 1.55 H, Estim Creat Clear Calc 17.88, Est GFR (MDRD) Af Amer 41 L, Est GFR (MDRD) Non-Af 34 L, BUN/Creatinine Ratio 27.7 H, Glucose 112 H, Calcium 8.3 L 06/09/23 06:28: POC Glucose 84 06/09/23 11:04: POC Glucose 169 H Micro: Microbiology 06/08/23 15:00 Urine, Catheterized Urine Culture - Preliminary GNR 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 Rhythm Strip Rhythm Strip: Sinus Tach Rate: 140 Ectopy: None Physical Exam Const alert, oriented x3 and no apparent distress Constitutional Narrative: frail HEENT normocephalic, head/scalp atraumatic, moist oral mucous membranes and oropharynx normal Eyes PERRL Neck no lymphadenopathy, supple and no JVD Lymph Lymphatic: no lymphadenopathy noted Resp normal respiratory effort, normal air movement and clear to auscultation bilaterally Cardio S1 normal heart sound, S2 normal heart sound and no murmurs Cardio Narrative: tachycardic GI normal to inspection, nondistended, normoactive bowel sounds, soft to palpation and non-tender Extremity normal capillary refill, no clubbing, cyanosis or edema and no calf tenderness General Extremity: no tenderness to palpation of joints or extremities Skin General Skin Exam: no breakdown Neuro CN's II-XII intact bilaterally, no focal motor deficits and no sensory deficits noted Motor Exam: strength 5/5 throughout and general weakness Psych thought process normal and cooperative Appearance: appropriate Assessment & Plan Assessment/Plan (1) Severe sepsis: (2) Acute UTI: (3) MERCEDES (acute kidney injury): PLAN: Plan #Severe sepsis due to UTI admitted with a complaint of fever and dysuria urinalysis showed evidence of UTI on IV ciprofloxacin urine 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 Speciation pending continue gentle hyration with IVF #MERCEDES Creatinine was 2.5 mg trended down to 1.55 Continue gentle hydration with IV fluids. Is improving with fluids. #Hypertension: On metoprolol. Losartan on hold. #Hyperlipidemia: On statin #Type 2 diabetes mellitus: On Lantus. Insulin sliding scale. Accu-Cheks ACHS. Metformin on hold. On glimepiride #Non-anion gap metabolic acidosis: Bicarb is 18 and anion gap is 7. Likely due to MERCEDES. Should improve as MERCEDES improves. #Anemia of chronic disease: Hb is 7.7. Baseline hemoglobin of in the EMR from 2019 shows hemoglobin was around 9-10 at baseline. #Glaucoma: on latanoprost. DVT prophylaxis: heparin Charges/Coding Visit Charges Inpatient E&M: 36506 Subs Hosp L2
[2023-06-09] MEDS: Acetaminophen 650 MG/20 ML UDC PO (16:14)
[2023-06-09 16:38] LABS: Bedside Glucose 63 mg/dL (74-106)
[2023-06-09 17:16] LABS: Bedside Glucose 133 mg/dL (74-106)
[2023-06-09] MEDS: Atorvastatin Calcium 10 MG Tablet 5 MG PO (22:07)
[2023-06-09] MEDS: amLODIPine 10 MG Tablet PO (22:07)
[2023-06-09 22:33] LABS: Bedside Glucose 90 mg/dL (74-106)
[2023-06-10] VITALS (11 sets, daily range): BP systolic 111–153; BP diastolic 44–77; PULSE 83–125; RESP 16–18; TEMP 36.8–38.9; O2SAT 92–97
[2023-06-10] MEDS: Menthol/Lanolin/Calamine/Znox 113 GM Tube 1 APPLIC TOPICAL ×3 (06:44→23:13)
[2023-06-10] MEDS: Heparin Injection (Vial) 5,000 UNIT/ML VIAL 5000 UNIT SC ×3 (06:44→23:13)
[2023-06-10 07:04] LABS: Bedside Glucose 114 mg/dL (74-106)
[2023-06-10 07:51] LABS: Absolute Lymphocyte Count 0.45 X10^3/uL (0.83-4.51); Absolute Neutrophil Count 4.5 X10^3/uL (2.0-7.7); Basophil# 0.01 X10^3/uL; Basophil% 0.2 % (0-1); Hematocrit 24.7 % (37-47); Hemoglobin 7.5 g/dL (12.0-15.0); Lymphocyte # 0.45 X10^3/ul (0.83-4.51); Lymphocyte % 8.6 % (19-41); Mean Corp Hgb Conc 30.4 g/dL (32-36); Mean Corpuscular Hgb 28.3 pg (27.0-32.0); Mean Corpuscular Volume 93.2 fL (81-99); Monocyte# 0.26 X10^3/uL; NRBC Flagged by Analyzer 0 % (0-5); Neutrophil # 4.46 X10^3/uL (2.7-7.7); Neutrophil % 85.6 % (47-70); POSITIVE DIFFERENTIAL YES; POSITIVE MORPHOLOGY YES; Platelet Count 324 K/mm3 (150-450); RBC Distribution Width CV 21.1 % (11.6-14.6); RBC Distribution Width SD 72.5 fl (35.1-43.9); Red Blood Count 2.65 M/mm3 (4.2-5.4); White Blood Count 5.2 K/mm3 (4.4-11.0)
[2023-06-10 07:53] LABS: Differential Indicated SCAN CRITERIA MET
[2023-06-10 08:11] LABS: Anion Gap 9 (5-15); BUN 19 mg/dL (7-18); BUN/Creat Ratio 19.8 RATIO (10-20); Calcium,Total 8.3 mg/dL (8.5-10.1); Chloride 112 mmol/L (98-107); Creatinine, Serum 0.96 mg/dL (0.55-1.02); EST Glomerular Filtration Rate 59 mL/min (>60); Est Glom Filt Rate - Afr Amer 71 mL/min (>60); Estimated Creatinine Clearance 28.87 ml/min; Glucose 118 mg/dL (74-106); Sodium Level 139 mmol/L (136-145)
[2023-06-10] MEDS: Metoprolol Tartrate 100 MG Tablet 200 MG PO ×2 (08:20→23:14)
[2023-06-10] MEDS: Aspirin 81 MG TAB.CHEW PO (08:20)
[2023-06-10] MEDS: Glimepiride 2 MG Tablet PO (08:20)
[2023-06-10] MEDS: Acetaminophen 325 MG Tablet 650 MG PO (08:20)
[2023-06-10] MEDS: 0.9% Normal Saline (1000mL) 1,000 ML 100 ML IV (08:21)
[2023-06-10 08:42] LABS: Anisocytosis 1+
[2023-06-10] MEDS: Potassium Chloride Oral Tablet 20 MEQ 60 MEQ PO (09:46)
[2023-06-10] MEDS: Ciprofloxacin 400 MG/200 ML BAG 200 MG IV (09:54)
[2023-06-10 11:32] LABS: Bedside Glucose 167 mg/dL (74-106)
--- NOTE | 2023-06-10 16:08 | PN_ITS ---
Subjective Subjective Patient seen and examined today. She had no active complaints. She had an uneventful nights. She is feeling much better. Review of systems is otherwise negative. She has remained hemodynamically stable. Objective Data Objective Data Vital Signs: Vital Signs Temp Pulse Resp BP Pulse Ox O2 Del Method 98.2 F 83 18 111/44 L 96 Room Air 06/10/23 14:34 06/10/23 10:00 06/10/23 10:00 06/10/23 10:00 06/10/23 10:00 06/10/23 14:39 Oxygen Delivery Method Room Air Weight: 97 lb 10.636 oz Body Mass Index (BMI) 16.7 Intake & Output: Intake and Output for Last 24 Hours 06/08/23 06/09/23 06/10/23 23:59 23:59 23:59 Intake Total 2150 / 2150 3751.67 / 3751.67 1356.67 / 1356.67 Output Total 600 / 600 1950 / 1950 1150 / 1150 Balance 1550 / 1550 1801.67 / 1801.67 206.67 / 206.67 Lab / Micro Data 06/10/23 07:27 06/10/23 07:27 Labs: Laboratory Results - last 24 hr 06/09/23 16:12: POC Glucose 63 L 06/09/23 16:53: POC Glucose 133 H 06/09/23 22:15: POC Glucose 90 06/10/23 06:42: POC Glucose 114 H 06/10/23 07:27: WBC 5.2, RBC 2.65 L, Hgb 7.5 L, Hct 24.7 L, MCV 93.2, MCH 28.3, MCHC 30.4 L, RDW Std Deviation 72.5 H, RDW Coeff of Alanna 21.1 H, Plt Count 324, M PV 9.0, Immature Gran % (Auto) 0.600, Neut % (Auto) 85.6 H, Lymph % (Auto) 8.6 L , [place] % (Auto) 5.0, Eos % (Auto) 0.0, Baso % (Auto) 0.2, Absolute Neuts (auto) 4.5, Absolute Lymphs (auto) 0.45 L, Nucleated RBC % 0, Differential Comment COMMENT, Anisocytosis 1+, Sodium 139, Potassium 3.0 L, Chloride 112 H, Carbon Dioxide 18.0 L, Anion Gap 9, BUN 19 H, Creatinine 0.96, Estim Creat Clear Calc 28.87, Est GFR (MDRD) Af Amer 71, Est GFR (MDRD) Non-Af 59 L, BUN/Creatinine Ratio 19.8, Glucose 118 H, Calcium 8.3 L 06/10/23 11:13: POC Glucose 167 H Micro: Microbiology 06/09/23 19:50 Stool Enteric Bacteriology - Final 06/09/23 19:50 Stool C. difficile DNA Amplification - Final 06/08/23 14:15 Blood Culture (Wb) - Anticubital Right Blood Culture - P reliminary No growth in 48 hours. 06/08/23 14:10 Blood Culture (Wb) - Anticubital Left Blood Culture - Preliminary No growth in 48 hours. 06/08/23 15:00 Urine, Catheterized Urine Culture - Final Klebsiella pneumoniae sp pneum Rhythm Strip Rhythm Strip: Sinus Tach Rate: 140 Ectopy: None Physical Exam Const alert, oriented x3 and no apparent distress Constitutional Narrative: frail HEENT normocephalic, head/scalp atraumatic, moist oral mucous membranes and oropharynx normal Eyes PERRL and EOMs intact bilaterally Neck no lymphadenopathy, supple and no JVD Lymph Lymphatic: no lymphadenopathy noted and no lymphedema noted Resp normal respiratory effort, normal air movement and clear to auscultation bilaterally Cardio regular rate, regular rhythm, S1 normal heart sound, S2 normal heart sound and no murmurs GI normal to inspection, nondistended, normoactive bowel sounds, soft to palpation and non-tender Extremity normal capillary refill, no clubbing, cyanosis or edema and no calf tenderness General Extremity: no tenderness to palpation of joints or extremities Skin General Skin Exam: no breakdown Neuro CN's II-XII intact bilaterally, no focal motor deficits and no sensory deficits noted Motor Exam: strength 5/5 throughout and general weakness Psych thought process normal and cooperative Appearance: appropriate Assessment & Plan Assessment/Plan (1) Severe sepsis: (2) Acute UTI: (3) MERCEDES (acute kidney injury): PLAN: Plan #Severe sepsis due to UTI * admitted with a complaint of fever and dysuria * urinalysis showed evidence of UTI * on IV ciprofloxacin * urine cultures growing Klebsiella sesitive to Ciprlfoxacin. Continue ciprofloxacin. * continue gentle hydration with IVF * blood cultures negative. * #MERCEDES * Resolved. Cr is down to 0.9 today. * #Hypertension: On metoprolol. resume losartan. #Hyperlipidemia: On statin #Type 2 diabetes mellitus: On Lantus. Insulin sliding scale. Accu-Cheks ACHS. Metformin on hold. On glimepiride #Non-anion gap metabolic acidosis: Bicarb remains 18 and anion gap is 7. Likely due to MERCEDES. MERCEDES has now resolved. Will monitor #Anemia of chronic disease: Hb is 7.5. Baseline hemoglobin of in the EMR from 2019 shows hemoglobin was around 9-10 at baseline. #Glaucoma: on latanoprost. DVT prophylaxis: heparin Disposition: for likely dc home tomorrow Charges/Coding Visit Charges Inpatient E&M: 20754 Subs Hosp L2
[2023-06-10 16:09] LABS: Giardia Lamblia, Stool EIA Negative (Negative)
[2023-06-10] MEDS: Glucerna Shake 120 ML LIQUID PO (16:28)
[2023-06-10] MEDS: 0.9% Saline Lock 10 ML Syringe IV (16:53)
[2023-06-10] MEDS: Dextrose 50%-Water 25 GM/50 ML DISP.SYRIN IV (16:53)
[2023-06-10 17:17] LABS: Bedside Glucose 29 mg/dL (74-106)
[2023-06-10 17:17] LABS: Bedside Glucose 46 mg/dL (74-106)
[2023-06-10 17:27] LABS: Bedside Glucose 175 mg/dL (74-106)
[2023-06-10 17:37] LABS: Glucose 332 mg/dL (74-106)
[2023-06-10] MEDS: Dext 5%-0.45% NS 1,000 ML 100 ML IV (20:22)
[2023-06-10] MEDS: amLODIPine 10 MG Tablet PO (20:27)
[2023-06-10] MEDS: Atorvastatin Calcium 10 MG Tablet 5 MG PO (23:14)
[2023-06-11] VITALS (10 sets, daily range): BP systolic 98–143; BP diastolic 38–57; PULSE 82–116; RESP 16–18; TEMP 36.7–38.7; O2SAT 92–98
[2023-06-11 00:09] LABS: Bedside Glucose 154 mg/dL (74-106)
[2023-06-11] MEDS: Dext 5%-0.45% NS 1,000 ML 50 ML IV ×2 (01:20→21:20)
[2023-06-11 02:31] LABS: Bedside Glucose 157 mg/dL (74-106)
[2023-06-11] MEDS: Acetaminophen 325 MG Tablet 650 MG PO (03:42)
[2023-06-11] MEDS: Heparin Injection (Vial) 5,000 UNIT/ML VIAL 5000 UNIT SC (05:34)
[2023-06-11] MEDS: Menthol/Lanolin/Calamine/Znox 113 GM Tube 1 APPLIC TOPICAL ×3 (05:35→21:30)
[2023-06-11 07:00] LABS: Bedside Glucose 138 mg/dL (74-106)
[2023-06-11 07:09] LABS: Absolute Lymphocyte Count 0.92 X10^3/uL (0.83-4.51); Absolute Neutrophil Count 3.1 X10^3/uL (2.0-7.7); Eosinophil# 0.01 X10^3/uL; Eosinophils% 0.2 % (0-5); Hematocrit 22.7 % (37-47); Hemoglobin 6.9 g/dL (12.0-15.0); Lymphocyte # 0.92 X10^3/ul (0.83-4.51); Lymphocyte % 21.3 % (19-41); Mean Corp Hgb Conc 30.4 g/dL (32-36); Mean Corpuscular Hgb 27.8 pg (27.0-32.0); Mean Corpuscular Volume 91.5 fL (81-99); Mean Platelet Vol. 9.2 fl (6.2-12.0); Monocyte# 0.28 X10^3/uL; Monocyte% 6.5 % (0-10); NRBC Flagged by Analyzer 0 % (0-5); Neutrophil # 3.09 X10^3/uL (2.7-7.7); Neutrophil % 71.5 % (47-70); POSITIVE MORPHOLOGY YES; Platelet Count 301 K/mm3 (150-450); RBC Distribution Width CV 20.9 % (11.6-14.6); RBC Distribution Width SD 70.1 fl (35.1-43.9); Red Blood Count 2.48 M/mm3 (4.2-5.4); White Blood Count 4.3 K/mm3 (4.4-11.0)
[2023-06-11 07:14] LABS: Differential Indicated SCAN CRITERIA MET
[2023-06-11] MEDS: Glucerna Shake 120 ML LIQUID PO ×2 (07:35→12:00)
[2023-06-11] MEDS: Aspirin 81 MG TAB.CHEW PO (07:35)
[2023-06-11] MEDS: Metoprolol Tartrate 100 MG Tablet 200 MG PO ×2 (07:35→21:22)
[2023-06-11 07:36] LABS: Anion Gap 8 (5-15); BUN 13 mg/dL (7-18); BUN/Creat Ratio 13.6 RATIO (10-20); Calcium,Total 8.2 mg/dL (8.5-10.1); Chloride 113 mmol/L (98-107); Creatinine, Serum 0.95 mg/dL (0.55-1.02); EST Glomerular Filtration Rate 59 mL/min (>60); Est Glom Filt Rate - Afr Amer 71 mL/min (>60); Estimated Creatinine Clearance 29.18 ml/min; Glucose 146 mg/dL (74-106); Potassium 2.8 mmol/L (3.5-5.1); Sodium Level 139 mmol/L (136-145)
[2023-06-11 08:42] LABS: Anisocytosis 1+
[2023-06-11] MEDS: Ciprofloxacin 400 MG/200 ML BAG 200 MG IV (09:48)
[2023-06-11 10:00] LABS: Hematocrit 24.9 % (37-47); Hemoglobin 7.6 g/dL (12.0-15.0)
[2023-06-11] MEDS: Potassium Chloride 10mEq/100mL 10 MEQ/100 ML IV.SOLN. 100 MEQ IV BOLUS (10:12)
[2023-06-11 11:33] LABS: Bedside Glucose 172 mg/dL (74-106)
[2023-06-11] MEDS: Potassium Chloride 10mEq/100mL 10 MEQ/100 ML IV.SOLN. 50 MEQ IV BOLUS ×3 (12:02→16:26)
--- NOTE | 2023-06-11 15:11 | PN_ITS ---
Subjective Subjective Patient seen and examined. She had no active complaints. She did have some fever overnight. She denied any cough, chest pain, palpitations, dizziness, nausea, vomiting or any other complaints. Review of systems is otherwise negative. Objective Data Objective Data Vital Signs: Vital Signs Temp Pulse Resp BP Pulse Ox O2 Del Method 98.3 F 84 16 125/38 H 98 Room Air 06/11/23 10:15 06/11/23 10:15 06/11/23 10:15 06/11/23 10:15 06/11/23 10:15 06/11/23 14:18 Oxygen Delivery Method Room Air Weight: 97 lb 10.636 oz Body Mass Index (BMI) 16.7 Intake & Output: Intake and Output for Last 24 Hours 06/09/23 06/10/23 06/11/23 23:59 23:59 23:59 Intake Total 3751.67 / 3751.67 2563.33 / 2563.33 1216.66 / 1216.66 Output Total 1950 / 1950 2350 / 2350 1000 / 1000 Balance 1801.67 / 1801.67 213.33 / 213.33 216.66 / 216.66 Lab / Micro Data 06/11/23 09:40 06/11/23 06:35 Labs: Laboratory Results - last 24 hr 06/09/23 12:05: Stl Giardia Antigen Negative 06/10/23 16:20: POC Glucose 46 L 06/10/23 16:48: POC Glucose 29 L* 06/10/23 17:02: Glucose 332 H 06/10/23 17:10: POC Glucose 175 H 06/10/23 23:09: POC Glucose 154 H 06/11/23 02:13: POC Glucose 157 H 06/11/23 06:24: POC Glucose 138 H 06/11/23 06:35: WBC 4.3 L, RBC 2.48 L, Hgb 6.9 L, Hct 22.7 L, MCV 91.5, MCH 27.8, MCHC 30.4 L, RDW Std Deviation 70.1 H, RDW Coeff of Alanna 20.9 H, Plt Count 301, MPV 9.2, Immature Gran % (Auto) 0.500, Neut % (Auto) 71.5 H, Lymph % (Auto) 21.3, [place] % (Auto) 6.5, Eos % (Auto) 0.2, Baso % (Auto) 0.0, Absolute Neuts (auto) 3.1, Absolute Lymphs (auto) 0.92, Nucleated RBC % 0, Anisocytosis 1+, Sodium 139, Potassium 2.8 L, Chloride 113 H, Carbon Dioxide 18.0 L, Anion Gap 8, BUN 13, Creatinine 0.95, Estim Creat Clear Calc 29.18, Est GFR (MDRD) Af Amer 71, Est GFR (MDRD) Non-Af 59 L, BUN/Creatinine Ratio 13.6, Glucose 146 H, Calcium 8.2 L 06/11/23 09:40: Hgb 7.6 L, Hct 24.9 L 06/11/23 11:03: POC Glucose 172 H Micro: Microbiology 06/09/23 19:50 Stool Enteric Bacteriology - Final 06/09/23 19:50 Stool C. difficile DNA Amplification - Final 06/08/23 14:15 Blood Culture (Wb) - Anticubital Right Blood Culture - Preliminary No growth in 48 hours. 06/08/23 14:10 Blood Culture (Wb) - Anticubital Left Blood Culture - Preliminary No growth in 48 hours. 06/08/23 15:00 Urine, Catheterized Urine Culture - Final Klebsiella pneumoniae sp pneum Rhythm Strip Rhythm Strip: Sinus Tach Rate: 140 Ectopy: None Physical Exam Const alert, oriented x3 and no apparent distress Constitutional Narrative: frail General Appearance: cooperative HEENT normocephalic, head/scalp atraumatic, moist oral mucous membranes and oropharynx normal Eyes PERRL and EOMs intact bilaterally Neck no lymphadenopathy, supple and no JVD Lymph Lymphatic: no lymphadenopathy noted and no lymphedema noted Resp normal respiratory effort, normal air movement and clear to auscultation bilaterally Cardio regular rate, regular rhythm, S1 normal heart sound, S2 normal heart sound and no murmurs GI normal to inspection, nondistended, normoactive bowel sounds, soft to palpation and non-tender Extremity normal capillary refill, no clubbing, cyanosis or edema and no calf tenderness General Extremity: no tenderness to palpation of joints or extremities Skin General Skin Exam: no breakdown Neuro CN's II-XII intact bilaterally, no focal motor deficits and no sensory deficits noted Motor Exam: strength 5/5 throughout and general weakness Psych thought process normal and cooperative Appearance: appropriate Assessment & Plan Assessment/Plan (1) Severe sepsis: (2) Acute UTI: (3) MERCEDES (acute kidney injury): PLAN: Plan #Severe sepsis due to UTI * admitted with a complaint of fever and dysuria * urinalysis showed evidence of UTI * on IV ciprofloxacin * urine cultures growing Klebsiella sesitive to Ciprlfoxacin. Continue ciprofloxacin. * continue gentle hydration with IVF * blood cultures negative. * #MERCEDES * Resolved. Cr is down to 0.9 today. * #Hypokalemia: K is 2.8. Will replace aggressively and trend. #Hypertension: On metoprolol and losartan. #Hyperlipidemia: On statin #Type 2 diabetes mellitus: On Lantus. Insulin sliding scale. Accu-Cheks ACHS. Metformin on hold. On glimepiride #Non-anion gap metabolic acidosis: Bicarb remains 18 and anion gap is 8. Likely due to MERCEDES. MERCEDES has now resolved. Will monitor #Anemia of chronic disease: * Hb today was 6.9. on repoeat its 7.6. Bselne hb appears to be ~ 10-11, but that is from 2019. * Iron panel done on 06/08/2023 showed evidence of iron deficiency anemia with iron of 10 and iron saturation of 4.6. * Started on IV pantoprazole 40 mg twice daily. Hold aspirin. GI consulted. #Glaucoma: on latanoprost. DVT prophylaxis: Dc heparin and start on SCDs. Charges/Coding Visit Charges Inpatient E&M: 97091 Subs Hosp L2
[2023-06-11] MEDS: Pantoprazole Sodium 40 MG in 0.9% Normal Saline (100mL MB+) 100 ML 330 MG IV ×2 (17:08→21:17)
[2023-06-11 17:14] LABS: Bedside Glucose 131 mg/dL (74-106)
[2023-06-11] MEDS: Acetaminophen 650 MG/20 ML UDC PO (18:07)
[2023-06-11] MEDS: amLODIPine 10 MG Tablet PO (20:41)
[2023-06-11] MEDS: Atorvastatin Calcium 10 MG Tablet 5 MG PO (21:22)
[2023-06-11 23:40] LABS: Bedside Glucose 128 mg/dL (74-106)
[2023-06-12] VITALS (7 sets, daily range): BP systolic 105–134; BP diastolic 45–67; PULSE 75–120; RESP 14–18; TEMP 36.6–37.7; O2SAT 94–98
[2023-06-12 06:11] LABS: Absolute Lymphocyte Count 0.94 X10^3/uL (0.83-4.51); Absolute Neutrophil Count 3.2 X10^3/uL (2.0-7.7); Basophil# 0.01 X10^3/uL; Basophil% 0.2 % (0-1); Eosinophil# 0.01 X10^3/uL; Eosinophils% 0.2 % (0-5); Hematocrit 24.2 % (37-47); Hemoglobin 7.6 g/dL (12.0-15.0); Lymphocyte # 0.94 X10^3/ul (0.83-4.51); Lymphocyte % 20.7 % (19-41); Mean Corp Hgb Conc 31.4 g/dL (32-36); Mean Corpuscular Hgb 28.7 pg (27.0-32.0); Mean Corpuscular Volume 91.3 fL (81-99); Mean Platelet Vol. 9.7 fl (6.2-12.0); Monocyte# 0.34 X10^3/uL; Monocyte% 7.5 % (0-10); NRBC Flagged by Analyzer 0 % (0-5); Neutrophil # 3.21 X10^3/uL (2.7-7.7); Neutrophil % 70.7 % (47-70); POSITIVE MORPHOLOGY YES; Platelet Count 291 K/mm3 (150-450); RBC Distribution Width CV 20.7 % (11.6-14.6); RBC Distribution Width SD 69.3 fl (35.1-43.9); Red Blood Count 2.65 M/mm3 (4.2-5.4); White Blood Count 4.5 K/mm3 (4.4-11.0)
[2023-06-12 06:19] LABS: Differential Indicated SCAN CRITERIA MET
[2023-06-12 06:41] LABS: Anion Gap 8 (5-15); Anisocytosis 2+; BUN 9 mg/dL (7-18); BUN/Creat Ratio 9.9 RATIO (10-20); Chloride 109 mmol/L (98-107); EST Glomerular Filtration Rate 63 mL/min (>60); Est Glom Filt Rate - Afr Amer 76 mL/min (>60); Glucose 158 mg/dL (74-106); Potassium 3.1 mmol/L (3.5-5.1); Sodium Level 137 mmol/L (136-145)
[2023-06-12 06:42] LABS: Hypochromasia 1+
[2023-06-12] MEDS: Menthol/Lanolin/Calamine/Znox 113 GM Tube 1 APPLIC TOPICAL ×2 (06:48→21:07)
[2023-06-12 07:06] LABS: Bedside Glucose 153 mg/dL (74-106)
[2023-06-12] MEDS: Potassium Chloride Oral Tablet 20 MEQ 40 MEQ PO (09:27)
[2023-06-12] MEDS: Acetaminophen 325 MG Tablet 650 MG PO (09:27)
[2023-06-12] MEDS: Glucerna Shake 120 ML LIQUID PO (09:28)
[2023-06-12] MEDS: Metoprolol Tartrate 100 MG Tablet 200 MG PO ×2 (09:29→21:00)
[2023-06-12] MEDS: Pantoprazole Sodium 40 MG in 0.9% Normal Saline (100mL MB+) 100 ML 110 MG IV (09:29)
[2023-06-12] MEDS: Ciprofloxacin 400 MG/200 ML BAG 200 MG IV (09:30)
[2023-06-12] MEDS: Insulin Lispro 100 UNIT/ML INSULN.PEN SC (10:57)
[2023-06-12 11:20] LABS: Bedside Glucose 219 mg/dL (74-106)
--- NOTE | 2023-06-12 12:13 | PN_ITS ---
Subjective Subjective Patient seen and examined. Daughter was by her bedside. She had no active complaints. REview of systems is otherwise negative. GI consulted o/a of acute on chronic anemia. Awaiting rec's Objective Data Objective Data Vital Signs: Vital Signs Temp Pulse Resp BP Pulse Ox O2 Del Method 99.5 F H 115 H 16 119/55 L 96 Room Air 06/12/23 09:19 06/12/23 09:29 06/12/23 09:19 06/12/23 09:29 06/12/23 09:19 06/12/23 09:19 Oxygen Delivery Method Room Air Weight: 97 lb 10.636 oz Body Mass Index (BMI) 16.7 Intake & Output: Intake and Output for Last 24 Hours 06/10/23 06/11/23 06/12/23 23:59 23:59 23:59 Intake Total 2563.33 / 2563.33 2223.33 / 2223.33 310 / 310 Output Total 2350 / 2350 2250 / 2250 600 / 600 Balance 213.33 / 213.33 -26.67 / -26.67 -290 / -290 Lab / Micro Data 06/12/23 04:58 06/12/23 04:58 Labs: Laboratory Results - last 24 hr 06/11/23 16:22: POC Glucose 131 H 06/11/23 21:29: POC Glucose 128 H 06/12/23 04:58: WBC 4.5, RBC 2.65 L, Hgb 7.6 L, Hct 24.2 L, MCV 91.3, MCH 28.7, MCHC 31.4 L, RDW Std Deviation 69.3 H, RDW Coeff of Alanna 20.7 H, Plt Count 291, MPV 9.7, Immature Gran % (Auto) 0.700, Neut % (Auto) 70.7 H, Lymph % (Auto) 20.7, [place] % (Auto) 7.5, Eos % (Auto) 0.2, Baso % (Auto) 0.2, Absolute Neuts (auto) 3.2, Absolute Lymphs (auto) 0.94, Nucleated RBC % 0, Hypochromasia 1+, Anisocytosis 2+, Sodium 137, Potassium 3.1 L, Chloride 109 H, Carbon Dioxide 20.0 L, Anion Gap 8, BUN 9, Creatinine 0.90, Estim Creat Clear Calc 30.80, Est GFR (MDRD) Af Amer 76, Est GFR (MDRD) Non-Af 63, BUN/Creatinine Ratio 9.9 L, Glucose 158 H, Calcium 8.0 L 06/12/23 06:47: POC Glucose 153 H 06/12/23 10:54: POC Glucose 219 H Micro: Microbiology 06/11/23 16:30 Mucosa - Nasopharyngeal Respiratory Panel (PCR) - Final 06/09/23 19:50 Stool Enteric Bacteriology - Final 06/09/23 19:50 Stool C. difficile DNA Amplification - Final 06/08/23 14:15 Blood Culture (Wb) - Anticubital Right Blood Culture - Preliminary No growth in 48 hours. 06/08/23 14:10 Blood Culture (Wb) - Anticubital Left Blood Culture - Preliminary No growth in 48 hours. 06/08/23 15:00 Urine, Catheterized Urine Culture - Final Klebsiella pneumoniae sp pneum Rhythm Strip Rhythm Strip: Sinus Tach Rate: 140 Ectopy: None Physical Exam Const alert, oriented x3 and no apparent distress Constitutional Narrative: frail General Appearance: cooperative HEENT normocephalic, head/scalp atraumatic and oropharynx normal Eyes PERRL and EOMs intact bilaterally Neck no lymphadenopathy, supple and no JVD Lymph Lymphatic: no lymphadenopathy noted and no lymphedema noted Resp normal respiratory effort, normal air movement and clear to auscultation b ilaterally Cardio regular rhythm, S1 normal heart sound, S2 normal heart sound and no murmurs Cardio Narrative: tachycardic GI normal to inspection, nondistended, normoactive bowel sounds, soft to palpation and non-tender Extremity normal capillary refill, no clubbing, cyanosis or edema and no calf tenderness General Extremity: no tenderness to palpation of joints or extremities Skin General Skin Exam: no breakdown Neuro CN's II-XII intact bilaterally, no focal motor deficits and no sensory deficits noted Motor Exam: strength 5/5 throughout and general weakness Psych thought process normal and cooperative Appearance: appropriate Assessment & Plan Assessment/Plan (1) Severe sepsis: (2) Acute UTI: (3) MERCEDES (acute kidney injury): PLAN: Plan #Severe sepsis due to UTI * admitted with a complaint of fever and dysuria * urinalysis showed evidence of UTI * on IV ciprofloxacin * urine cultures growing Klebsiella sesitive to Ciprlfoxacin. Continue ciprofloxacin. * * blood cultures negative. * #MERCEDES * Resolved. * #Hypokalemia: K is 2.8. Will replace aggressively and trend. #Hypertension: On metoprolol and losartan. #Hyperlipidemia: On statin #Type 2 diabetes mellitus: On Lantus. Insulin sliding scale. Accu-Cheks ACHS. Metformin on hold. On glimepiride #Non-anion gap metabolic acidosis: Bicarb remains 18 and anion gap is 8. Likely due to MERCEDES. MERCEDES has now resolved. Will monitor #Anemia of chronic disease: * Hb today is 7.6. * Baseline hb appears to be ~ 10-11, but that is from 2019. * Iron panel done on 06/08/2023 showed evidence of iron deficiency anemia with iron of 10 and iron saturation of 4.6. * On IV pantoprazole 40 mg twice daily. Hold aspirin. * GI consulted; await rec's #Glaucoma: on latanoprost. DVT prophylaxis: Dc heparin and start on SCDs. Charges/Coding Visit Charges Inpatient E&M: 83048 Subs Hosp L3
--- NOTE | 2023-06-12 13:08 | EX.PCM.CON.G ---
HPI Consult Data Date of Consult: 06/12/23 HPI Narrative Reason for Consultation: Anemia HPI Narrative: VERONICA HUNT, is a 88 F who presented to the hospital secondary to a fever and not feeling very well. She states that about 2 to 3 weeks ago she was given a prescription for antibiotics for UTI by her PCP but it sounds if this was given over the phone so there is not appear to be any culture data or identification. She has reported some dysuria over the last several days and has been feeling cold. Unfortunately do not have any recent lab work for her to be able to compare what her new baselines are because she is anemic to 8.8 potentially an MERCEDES at 2.51 however all of her most recent lab work in our system is from 2019. She was found to be in severe sepsis based on her vital and her lab work. UA indicates another UTI. While in the hospital she was discovered to have a decreasing hemoglobin. As per the patient and her daughter was at the bedside about a year ago she started being placed on oral iron once a day for a assumed iron deficiency anemia. Hemoglobin was 13.2. She was started on iron at a hemoglobin of 11. While she is in the hospital she was discovered to have hemoglobin of 9.4 and decreased all the way down to 6.9. Today is up to 7.4. She has had some dark stools but she attributed that to her or iron therapy as she takes aspirin on the base. She also takes metformin for diabetes and this, glipizide, and a load pain and occasional Motrin. COUNTS INCLUDE 234 BEDS AT THE [facility] Medical History (Updated 06/08/23 @ 17:[address] Francisco Motta MD) Urinary tract infection Home Medications latanoprost 0.005 % eye drops 1 drp QHS Check with primary doctor 04/04/17 [History Last Taken Unknown] losartan 100 mg tablet 100 mg PO QHS Check with primary doctor 04/04/17 [History Last Taken Unknown] metoprolol tartrate 100 mg tablet 200 mg PO BID Check with primary doctor 04/04/17 [History Last Taken 05/21/19] simvastatin 10 mg tablet (Zocor) 10 mg PO QHS Check with primary doctor 04/04/17 [History Last Taken 05/21/19 21:00] acetaminophen 500 mg tablet 1,000 mg (2 x 500 mg) PO Q6H PRN Pain Score 1-3/10 22/19 [Rx Last Taken Unknown] aspirin 81 mg chewable tablet 81 mg PO DAILY@0800 06/15/19 [Rx Last Taken Unknown] amlodipine 2.5 mg tablet 10 mg PO 199906/08/23 [History Last Taken Unknown] glimepiride 1 mg tablet 2 mg PO DAILY@0800 06/08/23 [History Last Taken Unknown] metformin 500 mg tablet 1,000 mg PO BID 06/08/23 [History Last Taken Unknown] Allergy/AdvReac Type Severity Reaction Status Date / Time betaxolol [From Betoptic] Allergy Itching Verified 06/08/23 14:18 brimonidine [From Alphagan P] Allergy Itching Verified 06/08/23 14:18 cephalexin [From Keflex] Allergy Rash Verified 06/08/23 14:18 nabumetone [From Relafen] Allergy Rash Verified 06/08/23 14:18 Family History (Updated 06/08/23 @ 17:[address] Francisco Motta MD) Other Diabetes Heart disease Surgical History (Updated 06/08/23 @ 17:[address] Francisco Motta MD) Status post laparoscopy with lysis of adhesions Social History Smoking Status: Former smoker ROS Constitutional Constitutional: Reports chills, fatigue and fever(s); Denies malaise Eyes Eyes: Denies blurry vision ENT HEENT: Denies headache(s) or nasal discharge Cardiovascular Cardiovascular: Denies chest pain, dyspnea on exertion or syncope Respiratory/Chest Respiratory/Chest: Denies cough, shortness of breath at rest or shortness of breath with exertion Gastrointestinal Gastrointestinal: Denies constipation, diarrhea, nausea or vomiting Genitourinary Genitourinary: Reports dysuria Neurologic Neurologic: Denies focal weakness, numbness or tremor(s) Psychiatric Psychiatric: Denies anxiety or depression Physical Exam Const alert, oriented x3 and no apparent distress Constitutional Narrative: frail General Appearance: cooperative HEENT normocephalic, head/scalp atraumatic and oropharynx normal Eyes PERRL and EOMs intact bilaterally Neck no lymphadenopathy, supple and no JVD Lymph Lymphatic: no lymphadenopathy noted and no lymphedema noted Resp normal respiratory effort, normal air movement and clear to auscultation bilaterally Cardio regular rhythm, S1 normal heart sound, S2 normal heart sound and no murmurs Cardio Narrative: tachycardic GI normal to inspection, nondistended, normoactive bowel sounds, soft to palpation and non-tender Extremity normal capillary refill, no clubbing, cyanosis or edema and no calf tenderness General Extremity: no tenderness to palpation of joints or extremities Skin General Skin Exam: no breakdown Neuro CN's II-XII intact bilaterally, no focal motor deficits and no sensory deficits noted Motor Exam: strength 5/5 throughout and general weakness Psych thought process normal and cooperative Appearance: appropriate Lab / Micro Data 06/12/23 04:58 06/12/23 04:58 Labs: Laboratory Results - last 24 hr 06/11/23 16:22: POC Glucose 131 H 06/11/23 21:29: POC Glucose 128 H 06/12/23 04:58: WBC 4.5, RBC 2.65 L, Hgb 7.6 L, Hct 24.2 L, MCV 91.3, MCH 28.7, MCHC 31.4 L, RDW Std Deviation 69.3 H, RDW Coeff of Alanna 20.7 H, Plt Count 291, MPV 9.7, Immature Gran % (Auto) 0.700, Neut % (Auto) 70.7 H, Lymph % (Auto) 20.7, [place] % (Auto) 7.5, Eos % (Auto) 0.2, Baso % (Auto) 0.2, Absolute Neuts (auto) 3.2, Absolute Lymphs (auto) 0.94, Nucleated RBC % 0, Hypochromasia 1+, Anisocytosis 2+, Sodium 137, Potassium 3.1 L, Chloride 109 H, Carbon Dioxide 20.0 L, Anion Gap 8, BUN 9, Creatinine 0.90, Estim Creat Clear Calc 30.80, Est GFR (MDRD) Af Amer 76, Est GFR (MDRD) Non-Af 63, BUN/Creatinine Ratio 9.9 L, Glucose 158 H, Calcium 8.0 L 06/12/23 06:47: POC Glucose 153 H 06/12/23 10:54: POC Glucose 219 H Micro: Microbiology 06/11/23 16:30 Mucosa - Nasopharyngeal Respiratory Panel (PCR) - Final Rhythm Strip Rhythm Strip: Sinus Tach Rate: 140 Ectopy: None Assessment & Plan Assessment/Plan (1) Acute UTI: (2) Severe sepsis: PLAN: Plan Severe sepsis secondary to UTI with MERCEDES. Patient currently is on medical therapy. Iron deficiency anemia. She had a EGD and colonoscopy multiple years ago just for reflux disease and screening purposes. She should undergo an upper endoscopy to evaluate upper GI tract and possibly a colonoscopy in the future depending on what we find on upper endoscopy. Differential diagnosis does include Rico's erosions and she does have a known hiatal hernia, gastric antral vascular ectasia, telangiectasia, angiodysplasia, peptic ulcer disease, H. pylori associated gastritis and possible celiac disease. She was explained alternatives, risk, benefits include not withstanding bleeding, infection, sepsis, perforation, need for emergent surgery . Show an ASA of Charges/Coding Visit Charges Inpatient E&M: 61711 Init Hosp L3
--- NOTE | 2023-06-12 15:05 | CHAPLAIN ---
Type of Pastoral Visit _x__ Initial Visit ___ Follow-up Visit ___ On-call Visit ___ General Patient Visit ___ Spiritual Assessment ___ Family Conference ___ Bereavement ___ Rapid Response ___ Code Blue ___ Other (describe below) Pastoral Care Referral From _x__ Patient ___ Family ___ Nurse ___ Physician ___ Resource Director ___ Appellate Court Judge ___ Other (describe below) Sacrament/Intervention _x__ Active listening ___ Anointing ___ Yarsani ___ Bereavement ___ Communion _x__ Sola exploration ___ _x__ Life review __x_ Prayer ___ Reconciliation ___ Sacrament of Sick _x__ Supportive presence ___ Wedding ___ Other (describe below) Pastoral Comments patient is very welcoming and talks about feeling so much better now and hoping that she can return home; pt identifies as a person of sola that believes in prayer; daughter comes into the room at this time; daughter gives more details and explains more of the family dynamics including of pt's spouse and a son; two other sons are estranged to the discouragement of pt and daughter; pt states that she just needs prayer at this time but welcomed future visits
[2023-06-12 16:53] LABS: Bedside Glucose 177 mg/dL (74-106)
[2023-06-12] MEDS: Dext 5%-0.45% NS 1,000 ML 50 ML IV (17:05)
[2023-06-12] MEDS: amLODIPine 10 MG Tablet PO (20:56)
[2023-06-12] MEDS: Atorvastatin Calcium 10 MG Tablet 5 MG PO (20:57)
[2023-06-12] MEDS: Latanoprost 0.005% 1 Bottle 1 DRP EACH EYE (20:59)
[2023-06-12] MEDS: Pantoprazole Sodium 40 MG in 0.9% Normal Saline (100mL MB+) 100 ML 330 MG IV (21:08)
[2023-06-13] VITALS (13 sets, daily range): BP systolic 78–133; BP diastolic 35–65; PULSE 85–121; RESP 14–18; TEMP 36.4–37.2; O2SAT 96–100; BMI 16.7
--- NOTE | 2023-06-13 | ESO_PTH ---
PATIENT: VERONICA HUNT LOC: [facility] U#:[id number] AGE/SX: 88/F ROOM: [facility] RE06/08/[address]: Dr. Mary Srivastava MD : 1935 BED: 1 DIS: 06/14/2023 SPEC #: [id number] RECD: 06/13/23 18:13 STATUS: LYUDMILA LANDERS #: [id number] VIDYA: 06/13/23 00:[address]: Darren Olivas DEPT: SURGICAL PATHOLOGY RECD BY: Arias Wu ENTERED: 06/16/23 10:43 SP TYPE: ESOPH BX OTHR DR: MD Dr. Mary Guallpa MD Dr. Nicholas F Kotsonis, MD Tissues: Esophagus, NOS Procedures: Special Stain Group II Surgery Specimen Level IV Alcian Blue/PAS (control) Comments: @ Ordering doctor for SUIV edited from to @ by LA at 06/16/23 142 @ Submitting doctor edited from to @ by RGOOD at 06/16/23 1424 HEADER OPERATION: EGD, biopsy, dilation PRE-OP DIAGNOSIS: Anemia TISSUE SUBMITTED: Random esophagus MICROSCOPIC DIAGNOSIS Esophagus, biopsy: Gastroesophageal junctional mucosa with acute and chronic inflammation. No evidence of goblet cell metaplasia. See comment. Aneudy 06/17/2023 COMMENT Alcian blue/PAS stain with matched control supports the above diagnosis. MICROSCOPIC DESCRIPTION Slides are reviewed. GROSS DESCRIPTION Received in fixative is one container labeled with the patient's name and designated random esophagus. The specimen consists of multiple irregular fragments of light montana soft tissue that in aggregate measure 0.6 x 0.3 x 0.1 cm. The specimen is totally submitted in one cassette. / LACY:tera 06/16/2023 TC:2 CPT: 45405, 67343
[2023-06-13 01:00] LABS: Bedside Glucose 192 mg/dL (74-106)
[2023-06-13 05:49] LABS: Absolute Lymphocyte Count 0.75 X10^3/uL (0.83-4.51); Absolute Neutrophil Count 3.6 X10^3/uL (2.0-7.7); Basophil# 0.01 X10^3/uL; Basophil% 0.2 % (0-1); Eosinophil# 0.01 X10^3/uL; Eosinophils% 0.2 % (0-5); Hematocrit 22.3 % (37-47); Lymphocyte # 0.75 X10^3/ul (0.83-4.51); Lymphocyte % 15.9 % (19-41); Mean Corp Hgb Conc 31.4 g/dL (32-36); Mean Corpuscular Hgb 28.2 pg (27.0-32.0); Mean Corpuscular Volume 89.9 fL (81-99); Mean Platelet Vol. 9.4 fl (6.2-12.0); Monocyte# 0.35 X10^3/uL; Monocyte% 7.4 % (0-10); NRBC Flagged by Analyzer 0 % (0-5); Neutrophil # 3.56 X10^3/uL (2.7-7.7); Neutrophil % 75.2 % (47-70); POSITIVE MORPHOLOGY YES; Platelet Count 289 K/mm3 (150-450); RBC Distribution Width SD 65.9 fl (35.1-43.9); Red Blood Count 2.48 M/mm3 (4.2-5.4); White Blood Count 4.7 K/mm3 (4.4-11.0)
[2023-06-13 05:52] LABS: Differential Indicated SCAN CRITERIA MET
[2023-06-13 05:58] LABS: International Normalized Ratio 1.4
[2023-06-13 05:59] LABS: Partial Thromboplast Time 44.3 Seconds (24.1-36.2)
[2023-06-13 06:29] LABS: Anion Gap 10 (5-15); BUN 10 mg/dL (7-18); Calcium,Total 7.6 mg/dL (8.5-10.1); Chloride 108 mmol/L (98-107); Creatinine, Serum 0.91 mg/dL (0.55-1.02); EST Glomerular Filtration Rate 62 mL/min (>60); Est Glom Filt Rate - Afr Amer 75 mL/min (>60); Estimated Creatinine Clearance 30.46 ml/min; Glucose 204 mg/dL (74-106); Potassium 2.6 mmol/L (3.5-5.1); Sodium Level 139 mmol/L (136-145)
[2023-06-13 06:36] LABS: Anisocytosis 1+
[2023-06-13] MEDS: Potassium Chloride 10mEq/100mL 10 MEQ/100 ML IV.SOLN. 100 MEQ IV BOLUS ×4 (06:48→09:41)
[2023-06-13] MEDS: Menthol/Lanolin/Calamine/Znox 113 GM Tube 1 APPLIC TOPICAL (06:53)
[2023-06-13 07:02] LABS: Bedside Glucose 180 mg/dL (74-106)
[2023-06-13 07:27] LABS: Magnesium 0.9 mg/dL (1.6-2.6); Phosphorus 2.6 mg/dL (2.5-4.9)
[2023-06-13 07:50] LABS: Hemoglobin A1c 6.6 % (3.8-5.6)
[2023-06-13] MEDS: Metoprolol Tartrate 100 MG Tablet 200 MG PO ×2 (08:59→21:13)
[2023-06-13] MEDS: Acetaminophen 325 MG Tablet 650 MG PO (09:00)
--- NOTE | 2023-06-13 10:06 | PN_ITS ---
Subjective Subjective Patient seen and examined. She was was working with physical therapy. She had no active complaints. She denied fever, chills, cough, chest pain, palpitations, dizziness, nausea, vomiting or any other complaints. Review of systems is otherwise negative. She is for EGD today. Objective Data Objective Data Vital Signs: Vital Signs Temp Pulse Resp BP Pulse Ox O2 Del Method 99 F 121 H 16 133/55 H 97 Room Air 06/13/23 07:50 06/13/23 08:59 06/13/23 07:50 06/13/23 08:59 06/13/23 06:35 06/13/23 07:50 Oxygen Delivery Method Room Air Weight: 97 lb 10.636 oz Body Mass Index (BMI) 16.7 Intake & Output: Intake and Output for Last 24 Hours 06/11/23 06/12/23 06/13/23 23:59 23:59 23:59 Intake Total 2223.33 / 2223.33 660 / 660 288.33 / 288.33 Output Total 2250 / 2250 1600 / 1600 700 / 700 Balance -26.67 / -26.67 -940 / -940 -411.67 / -411.67 Lab / Micro Data 06/13/23 05:30 06/13/23 05:30 Labs: Laboratory Results - last 24 hr 06/12/23 10:54: POC Glucose 219 H 06/12/23 16:36: POC Glucose 177 H 06/12/23 21:02: POC Glucose 192 H 06/13/23 05:30: WBC 4.7, RBC 2.48 L, Hgb 7.0 L, Hct 22.3 L, MCV 89.9, MCH 28.2, MCHC 31.4 L, RDW Std Deviation 65.9 H, RDW Coeff of Alanna 20.0 H, Plt Count 289, MPV 9.4, Immature Gran % (Auto) 1.100 H, Neut % (Auto) 75.2 H, Lymph % (Auto) 15.9 L, [place] % (Auto) 7.4, Eos % (Auto) 0.2, Baso % (Auto) 0.2, Absolute Neuts (auto) 3.6, Absolute Lymphs (auto) 0.75 L, Nucleated RBC % 0, Anisocytosis 1+, PT 17.0 H, INR 1.4, APTT 44.3 H, Sodium 139, Potassium 2.6 L*, Chloride 108 H, Carbon Dioxide 21.0, Anion Gap 10, BUN 10, Creatinine 0.91, Estim Creat Clear Calc 30.46, Est GFR (MDRD) Af Amer 75, Est GFR (MDRD) Non-Af 62, BUN/Creatinine Ratio 11.0, Glucose 204 H, Hemoglobin A1c 6.6 H, Calcium 7.6 L, Phosphorus 2.6, Magnesium 0.9 L* 06/13/23 06:34: POC Glucose 180 H Micro: Microbiology 06/11/23 16:30 Mucosa - Nasopharyngeal Respiratory Panel (PCR) - Final 06/09/23 19:50 Stool Enteric Bacteriology - Final 06/09/23 19:50 Stool C. difficile DNA Amplification - Final 06/08/23 14:15 Blood Culture (Wb) - Anticubital Right Blood Culture - Preliminary No growth in 48 hours. 06/08/23 14:10 Blood Culture (Wb) - Anticubital Left Blood Culture - Preliminary No growth in 48 hours. 06/08/23 15:00 Urine, Catheterized Urine Culture - Final Klebsiella pneumoniae sp pneum Rhythm Strip Rhythm Strip: Sinus Tach Rate: 140 Ectopy: None Physical Exam Const alert, oriented x3 and no apparent distress Constitutional Narrative: frail General Appearance: cooperative HEENT normocephalic, head/scalp atraumatic, moist oral mucous membranes and oropharynx normal Eyes PERRL and EOMs intact bilaterally Neck no lymphadenopathy, supple and no JVD Lymph Lymphatic: no lymphadenopathy noted and no lymphedema noted Resp normal respiratory effort, normal air movement and clear to auscultation bilaterally Cardio regular rhythm, S1 normal heart sound, S2 normal heart sound and no murmurs Cardio Narrative: tachycardic GI normal to inspection, nondistended, normoactive bowel sounds, soft to palpation and non-tender Extremity normal capillary refill, no clubbing, cyanosis or edema and no calf tenderness General Extremity: no tenderness to palpation of joints or extremities Skin General Skin Exam: no breakdown Neuro CN's II-XII intact bilaterally, no focal motor deficits and no sensory deficits noted Motor Exam: strength 5/5 throughout and general weakness Psych thought process normal and cooperative Appearance: appropriate Assessment & Plan Assessment/Plan (1) Severe sepsis: (2) Acute UTI: (3) MERCEDES (acute kidney injury): PLAN: Plan #Severe sepsis due to UTI * admitted with a complaint of fever and dysuria * urinalysis showed evidence of UTI * on IV ciprofloxacin * urine cultures growing Klebsiella sensitive to Ciprofloxacin. Continue ciprofloxacin. * blood cultures negative. * * #MERCEDES * Resolved. * #Hypokalemia: K is 2.6. Will replace aggressively and trend. Mg is also low at 0.9. will monitor #Hypertension: On metoprolol and losartan. #Tachycardia: HR s up in the 120s. On metoprolol. Will give her metoprolol with a little bit of apple sauce. #Hyperlipidemia: On statin #Type 2 diabetes mellitus: On Lantus. Insulin sliding scale. Accu-Cheks ACHS. Metformin on hold. On glimepiride #Non-anion gap metabolic acidosis: Bicarb remains 18 and anion gap is 8. Likely due to MERCEDES. MERCEDES has now resolved. Will monitor #Anemia of chronic disease: * Hb today is 7 * Baseline hb appears to be ~ 10-11, but that is from 2019. * Iron panel done on 06/08/2023 showed evidence of iron deficiency anemia with iron of 10 and iron saturation of 4.6. * On IV pantoprazole 40 mg twice daily. Hold aspirin. * GI on board. For EGD today. #Glaucoma: on latanoprost. DVT prophylaxis: SCDs Charges/Coding Visit Charges Inpatient E&M: 25339 Subs Hosp L3
--- NOTE | 2023-06-13 10:30 | CASEMGMT ---
Discharge Planning A list of?HH providers including quality and resource use data and consistent with the patient's preferred geographic region, medical needs, and insurance network was created in [facility] Guide.? This list was provided to the RN DAVY. Mikaela Maria, Discharge Planning Asst.
[2023-06-13] MEDS: Ciprofloxacin 400 MG/200 ML BAG 200 MG IV (10:33)
[2023-06-13] MEDS: Pantoprazole Sodium 40 MG in 0.9% Normal Saline (100mL MB+) 100 ML 330 MG IV ×2 (10:35→21:14)
[2023-06-13] MEDS: Dext 5%-0.45% NS 1,000 ML 50 ML IV (10:38)
[2023-06-13] MEDS: Magnesium Sulfate 4gm/100mL 4 GM/100 ML IV.SOLN. IV (11:16)
--- NOTE | 2023-06-13 14:00 | CASEMGMT ---
JESUS BHATTI in to discuss discharge planning with patient and daughter. JESUS BHATTI reviewed HHC with patient, patient agreeable to HHC at discharge. HHC list provided to patient, patient prefers [facility]. Patient will also need [facility] at discharge. JESUS BHATTI called [facility] and made referral. [facility] is able accept the patient with planned start of care for Friday06/17/23. JESUS BHATTI update the patient. Patient had no further questions. Green sheet placed on chart for HHC and walker. Discharge plan updated.
[2023-06-13] MEDS: Lactated Ringers 1,000 ML 15 ML IV (16:04)
[2023-06-13 16:37] LABS: Potassium 3.5 mmol/L (3.5-5.1)
[2023-06-13 16:45] LABS: Bedside Glucose 173 mg/dL (74-106)
--- NOTE | 2023-06-13 17:06 | OP.CCLET_ITS ---
06/13/2023 Claire Sharif [address] [place] [address] Re : Upper GI endoscopy procedure for Kristin Pelletier Dear Dr. Sharif This procedure was performed on Tuesday, June 13, 2023. My impressions and recommendations are as follows: Impressions : - Esophageal mucosal changes consistent with eosinophilic esophagitis. Dilated. - Hiatal hernia. - Oozing duodenal ulcer with pigmented material. Injected. Treated with argon plasma coagulation (APC). - Biopsies were taken with a cold forceps for evaluation of eosinophilic esophagitis. Recommendations : - [facility] to [facility] care. - Use Protonix (pantoprazole) 40 mg PO BID for 12 weeks. - Continue present medications. My findings are described in the full procedure note, which is enclosed. If I can be of further assistance, please feel free to contact me at . Sincerely, Darren Friend, 06/13/2023 5:06:10 PM This report has been signed electronically.
--- NOTE | 2023-06-13 17:06 | OP.EGD_ITS ---
Patient Name: Kristin Pelletier Procedure Date: 06/13/2023 3:57 PM Date of : 1935 Age: 88 Procedure: Upper GI endoscopy Indications: Iron deficiency anemia, Dysphagia Providers: Darren Olivas DO Medicines: Monitored Anesthesia Care Patient Profile: This is an 88 year old female. Refer to note in patient chart for documentation of history and physical. Patient has symptoms of dysphagia with both liquids and solids. Complications: No immediate complications. Procedure: Pre-Anesthesia Assessment: - Prior to the procedure, a History and Physical was performed, and patient medications and allergies were reviewed. The patient is competent. The risks and benefits of the procedure and the sedation options and risks were discussed with the patient. All questions were answered and informed consent was obtained. Patient identification and proposed procedure were verified in the pre-procedure area. Mental Status Examination: alert and oriented. Airway Examination: normal oropharyngeal airway and neck mobility. Respiratory Examination: clear to auscultation. CV Examination: normal. Prophylactic Antibiotics: The patient does not require prophylactic antibiotics. Prior Anticoagulants: The patient has taken no anticoagulant or antiplatelet agents. After reviewing the risks and benefits, the patient was deemed in satisfactory condition to undergo the procedure. The anesthesia plan was to use monitored anesthesia care (MAC). Immediately prior to administration of medications, the patient was re-assessed for adequacy to receive sedatives. The heart rate, respiratory rate, oxygen saturations, blood pressure, adequacy of pulmonary ventilation, and response to care were monitored throughout the procedure. The physical status of the patient was re-assessed after the procedure. After obtaining informed consent, the endoscope was passed under direct vision. Throughout the procedure, the patient's blood pressure, pulse, and oxygen saturations were monitored continuously. The Endoscope was introduced through the mouth, and advanced to the second part of duodenum. The upper GI endoscopy was accomplished without difficulty. The patient tolerated the procedure well. Scope In: 4:49:25 PM Scope Out: 4:58:49 PM Total Procedure Duration Time 0 hours 9 minutes 24 seconds Findings: Mucosal changes including ringed esophagus, feline appearance, longitudinal furrows, small-caliber esophagus and white plaques were found in the entire esophagus. Esophageal findings were graded using the Eosinophilic Esophagitis Endoscopic Reference Score (EoE-EREFS) as: Edema Grade 1 Present (decreased clarity or absence of vascular markings), Rings Grade 3 Severe (distinct rings that do not permit passage of diagnostic 8-10 mm endoscope), Exudates Grade 2 Severe (scattered white lesions involving 10 percent or greater of the esophageal surface area), Furrows Grade 2 Severe (vertical lines with clear depth) and Stricture present. Biopsies were obtained from the proximal and distal esophagus with cold forceps for histology of suspected eosinophilic esophagitis. Verification of patient identification for the specimen was done. Estimated blood loss was minimal. A TTS dilator was passed through the scope. Dilation with a 15-16.5-18 mm balloon dilator was performed to 15 mm. The dilation site was examined and showed moderate mucosal disruption. Estimated blood loss was minimal. A hiatal hernia was present. No other significant abnormalities were identified in a careful examination of the stomach. One oozing linear duodenal ulcer with pigmented material was found in the duodenal bulb. The lesion was 5 mm in largest dimension. Area was successfully injected with 8 mL of a 0.1 mg/mL solution of epinephrine for drug delivery. Coagulation for hemostasis using argon plasma at 0.3 liters/minute and 20 hanson was successful. Estimated blood loss was minimal. Impression: - Esophageal mucosal changes consistent with eosinophilic esophagitis. Dilated. - Hiatal hernia. - Oozing duodenal ulcer with pigmented material. Injected. Treated with argon plasma coagulation (APC). - Biopsies were taken with a cold forceps for evaluation of eosinophilic esophagitis. Recommendation: - [facility] patient to [facility] for [facility] care. - Use Protonix (pantoprazole) 40 mg PO BID for 12 weeks. - Continue present medications. Procedure Code(s): --- Professional --- 01593, 59, Esophagogastroduodenoscopy, flexible, transoral; with control of bleeding, any method 33625, Esophagogastroduodenoscopy, flexible, transoral; with transendoscopic balloon dilation of esophagus (less than 30 mm diameter) 25070, 59, Esophagogastroduodenoscopy, flexible, transoral; with biopsy, single or multiple 17376, 59, Esophagogastroduodenoscopy, flexible, transoral; with directed submucosal injection(s), any substance CPT copyright 2021 [employer]. All rights reserved. The codes documented in this report are preliminary and upon flat grinder operator review may be revised to meet current compliance requirements. Darren Olivas DO 06/13/2023 5:06:10 PM This report has been signed electronically. Number of Addenda: 0 Note Initiated On: 06/13/2023 3:57 PM
[2023-06-13 20:42] LABS: Bedside Glucose 202 mg/dL (74-106)
[2023-06-13] MEDS: Insulin Lispro 100 UNIT/ML INSULN.PEN SC (21:12)
[2023-06-13] MEDS: amLODIPine 10 MG Tablet PO (21:12)
[2023-06-13] MEDS: Atorvastatin Calcium 10 MG Tablet 5 MG PO (21:13)
[2023-06-13] MEDS: Latanoprost 0.005% 1 Bottle 1 DRP EACH EYE (21:14)
[2023-06-13 23:48] LABS: Bedside Glucose 195 mg/dL (74-106)
[2023-06-14] VITALS (8 sets, daily range): BP systolic 106–137; BP diastolic 39–46; PULSE 82–113; RESP 14–16; TEMP 36.7–37.2; O2SAT 94–100
[2023-06-14] MEDS: Insulin Lispro 100 UNIT/ML INSULN.PEN SC ×2 (06:27→11:12)
[2023-06-14] MEDS: Menthol/Lanolin/Calamine/Znox 113 GM Tube 1 APPLIC TOPICAL (06:27)
[2023-06-14] MEDS: Dext 5%-0.45% NS 1,000 ML 50 ML IV (06:30)
[2023-06-14 06:54] LABS: Bedside Glucose 162 mg/dL (74-106)
--- NOTE | 2023-06-14 07:00 | PN.GI_ITS ---
Subjective Subjective Patient is doing well she underwent an upper endoscopy. 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 She underwent esophageal dilation and is doing very well and is able to eat regular food at this time. Objective Data Objective Data Vital Signs: Vital Signs Temp Pulse Resp BP Pulse Ox O2 Del Method 98.6 F 82 16 110/39 L 98 Room Air 06/14/23 13:42 06/14/23 13:42 06/14/23 13:42 06/14/23 13:42 06/14/23 13:42 06/14/23 13:42 Oxygen Delivery Method Room Air Weight: 97 lb 10.636 oz Body Mass Index (BMI) 16.7 Intake & Output: Intake and Output for Last 24 Hours 06/12/23 06/13/23 06/14/23 23:59 23:59 23:59 Intake Total 660 / 660 1885.83 / 1885.83 2353.33 / 2353.33 Output Total 1600 / 1600 2400 / 2400 400 / 400 Balance -940 / -940 -514.17 / -514.17 1953.33 / 1953.33 Lab / Micro Data 06/14/23 06:50 06/14/23 06:50 Labs: Laboratory Results - last 24 hr 06/13/23 11:15: POC Glucose 195 H 06/13/23 20:23: POC Glucose 202 H 06/14/23 06:26: POC Glucose 162 H 06/14/23 06:50: WBC 6.4, RBC 2.55 L, Hgb 7.2 L, Hct 23.2 L, MCV 91.0, MCH 28.2, MCHC 31.0 L, RDW Std Deviation 67.7 H, RDW Coeff of Alanna 20.3 H, Plt Count 368, MPV 9.4, Immature Gran % (Auto) 0.900, Neut % (Auto) 77.2 H, Lymph % (Auto) 15.3 L, [place] % (Auto) 5.3, Eos % (Auto) 1.1, Baso % (Auto) 0.2, Absolute Neuts (auto) 4.9, Absolute Lymphs (auto) 0.98, Nucleated RBC % 0, Hypochromasia 2+, Anisocytosis 2+, Sodium 141, Potassium 3.4 L, Chloride 109 H, Carbon Dioxide 22.0, Anion Gap 10, BUN 11, Creatinine 0.92, Estim Creat Clear Calc 30.13, Est GFR (MDRD) Af Amer 75, Est GFR (MDRD) Non-Af 62, BUN/Creatinine Ratio 12.0, Glucose 178 H, Calcium 8.3 L 06/14/23 11:00: Blood Type O POSITIVE, Antibody Screen NEGATIVE, Crossmatch See Detail 06/14/23 11:10: POC Glucose 260 H Micro: Microbiology 06/08/23 14:15 Blood Culture (Wb) - Anticubital Right Blood Culture - Final No growth in 5 days. 06/08/23 14:10 Blood Culture (Wb) - Anticubital Left Blood Culture - Final No growth in 5 days. 06/11/23 16:30 Mucosa - Nasopharyngeal Respiratory Panel (PCR) - Final 06/09/23 19:50 Stool Enteric Bacteriology - Final 06/09/23 19:50 Stool C. difficile DNA Amplification - Final 06/08/23 15:00 Urine, Catheterized Urine Culture - Final Klebsiella pneumoniae sp pneum Rhythm Strip Rhythm Strip: Sinus Tach Rate: 140 Ectopy: None Physical Exam Const alert, oriented x3 and no apparent distress Constitutional Narrative: frail General Appearance: cooperative and comfortable Orientation / Consciousness: awake HEENT normocephalic, head/scalp atraumatic, hearing grossly normal bilaterally, moist oral mucous membranes and oropharynx normal Mouth: oral and palatal mucosa normal Eyes PERRL and EOMs intact bilaterally Neck no lymphadenopathy, supple and no JVD Lymph Lymphatic: no lymphadenopathy noted and no lymphedema noted Resp normal respiratory effort, normal air movement, no use of accessory muscles and clear to auscultation bilaterally Cardio regular rate, regular rhythm, S1 normal heart sound, S2 normal heart sound and no murmurs Cardio Narrative: tachycardic GI normal to inspection, nondistended, normoactive bowel sounds, soft to palpation and non-tender Extremity normal to inspection, full ROM, normal capillary refill, no clubbing, cyanosis or edema and no calf tenderness General Extremity: no tenderness to palpation of joints or extremities Skin no rashes or lesions noted General Skin Exam: no breakdown Neuro oriented x3, CN's II-XII intact bilaterally, moves all extremities, no focal motor deficits and no sensory deficits noted Sensorium / Orientation: awake and alert Motor Exam: strength 5/5 throughout and general weakness Psych thought process normal and cooperative Appearance: appropriate Assessment & Plan Assessment/Plan (1) Severe sepsis: (2) Acute UTI: (3) MERCEDES (acute kidney injury): PLAN: Plan #Severe sepsis due to UTI * admitted with a complaint of fever and dysuria * urinalysis showed evidence of UTI * on IV ciprofloxacin * urine cultures growing Klebsiella sensitive to Ciprofloxacin. Continue ciprofloxacin. * blood cultures negative. * * #MERCEDES * Resolved. * #Hypokalemia: K is 2.6. Will replace aggressively and trend. Mg is also low at 0.9. will monitor #Hypertension: On metoprolol and losartan. #Tachycardia: HR s up in the 120s. On metoprolol. Will give her metoprolol with a little bit of apple sauce. #Hyperlipidemia: On statin #Type 2 diabetes mellitus: On Lantus. Insulin sliding scale. Accu-Cheks ACHS. Metformin on hold. On glimepiride #Non-anion gap metabolic acidosis: Bicarb remains 18 and anion gap is 8. Likely due to MERCEDES. MERCEDES has now resolved. Will monitor #Anemia of chronic disease: * Hb today is 7 * Baseline hb appears to be ~ 10-11, but that is from 2019. * Iron panel done on 06/08/2023 showed evidence of iron deficiency anemia with iron of 10 and iron saturation of 4.6. * On IV pantoprazole 40 mg twice daily. Hold aspirin. * GI on board. For EGD today. #Glaucoma: on latanoprost. DVT prophylaxis: SCDs Charges/Coding Visit Charges Inpatient E&M: 95994 Subs Hosp L3
[2023-06-14 07:02] LABS: Absolute Lymphocyte Count 0.98 X10^3/uL (0.83-4.51); Absolute Neutrophil Count 4.9 X10^3/uL (2.0-7.7); Basophil# 0.01 X10^3/uL; Basophil% 0.2 % (0-1); Eosinophil# 0.07 X10^3/uL; Eosinophils% 1.1 % (0-5); Hematocrit 23.2 % (37-47); Hemoglobin 7.2 g/dL (12.0-15.0); Lymphocyte # 0.98 X10^3/ul (0.83-4.51); Lymphocyte % 15.3 % (19-41); Mean Corpuscular Hgb 28.2 pg (27.0-32.0); Mean Platelet Vol. 9.4 fl (6.2-12.0); Monocyte# 0.34 X10^3/uL; Monocyte% 5.3 % (0-10); NRBC Flagged by Analyzer 0 % (0-5); Neutrophil # 4.93 X10^3/uL (2.7-7.7); Neutrophil % 77.2 % (47-70); POSITIVE MORPHOLOGY YES; Platelet Count 368 K/mm3 (150-450); RBC Distribution Width CV 20.3 % (11.6-14.6); RBC Distribution Width SD 67.7 fl (35.1-43.9); Red Blood Count 2.55 M/mm3 (4.2-5.4); White Blood Count 6.4 K/mm3 (4.4-11.0)
[2023-06-14 07:04] LABS: Differential Indicated SCAN CRITERIA MET
[2023-06-14 07:52] LABS: Anisocytosis 2+; Hypochromasia 2+
[2023-06-14 08:22] LABS: Anion Gap 10 (5-15); BUN 11 mg/dL (7-18); Calcium,Total 8.3 mg/dL (8.5-10.1); Chloride 109 mmol/L (98-107); Creatinine, Serum 0.92 mg/dL (0.55-1.02); EST Glomerular Filtration Rate 62 mL/min (>60); Est Glom Filt Rate - Afr Amer 75 mL/min (>60); Estimated Creatinine Clearance 30.13 ml/min; Glucose 178 mg/dL (74-106); Potassium 3.4 mmol/L (3.5-5.1); Sodium Level 141 mmol/L (136-145)
[2023-06-14] MEDS: Glucerna Shake 120 ML LIQUID PO (08:45)
[2023-06-14] MEDS: Metoprolol Tartrate 100 MG Tablet 200 MG PO (08:48)
[2023-06-14] MEDS: Pantoprazole Sodium 40 MG in 0.9% Normal Saline (100mL MB+) 100 ML 330 MG IV (08:49)
[2023-06-14] MEDS: Ciprofloxacin 400 MG/200 ML BAG 200 MG IV (08:49)
[2023-06-14] MEDS: Potassium Chloride Oral Tablet 20 MEQ 40 MEQ PO (09:34)
--- NOTE | 2023-06-14 10:38 | CASEMGMT ---
Addendum entered by Dilma Oviedo 06/14/23 10:43: Discussed pt with therapy who states pt safe to return home but has low motivation. Original Note: RN CM into pt room per request of hospitalist. Pt dtr present. She asks about dc plans. She and pt aware that a FWW will be given to her prior to dc, pt will be tested for home oxygen and that [facility] will be out to see her in the home. Pt dtr relieved with this information. She denies any further needs and is appreciative of the information. Updated hospitalist.
--- NOTE | 2023-06-14 11:15 | DCINST_ITS ---
Discharge Instructions Diet Discharge Diet: Low fat / Low cholesterol Activity Discharge Activity: Return to Normal Activity Weight Bearing Status: Weight bearing as tolerated Dressing / Incision Call your doctor if you observe: Fever of 101 or Higher, Shortness of breath, Dizziness, Swelling in the ankles, Chest pain and Increased palpitations (irregular heartbeat) Follow Up Care Test Results: Test results from this visit will be discussed in further detail at your follow- up appointment, if applicable. Discharge Plan Admission Admit Date/Time: 06/08/23 16:02 Primary Reason for Your Visit: UTI Attending Provider: Mary Srivastava Primary Care Provider: Claire Sharif Consulting Providers: Francisco Motta Instructions Patient Instructions: Anemia, UTI Ch Discharge Orders/Prescriptions Prescriptions: New pantoprazole 40 mg tablet,delayed release (DR/EC) 40 mg PO BID Qty: 60 1RF Continued latanoprost 1 DROP bottle 1 drp Each Eye QHS metoprolol tartrate 100 MG tablet 200 mg PO BID Patient Comments: 2 at breakfast 2 HS simvastatin [Zocor] 10 MG tablet 10 mg PO QHS losartan 100 MG tablet 100 mg PO QHS acetaminophen 500 MG tablet 1,000 mg PO Q6H PRN (Reason: Pain Score 1-3/10) 0RF amlodipine 2.5 MG tablet 10 mg PO 2000 glimepiride 1 MG tablet 2 mg PO DAILY@0800 metformin 500 mg tablet 1,000 mg PO BID Discontinued aspirin 81 MG tablet,chewable 81 mg PO DAILY@0800 0RF Referrals / Follow Up: Claire Sharif MD [Primary Care Provider] - Within 2 Weeks FriendDarren DO [Med Staff - Active Staff] - Within 2 Weeks Disposition Disposition (needs filled in before D/C Order can be placed): Home Health Service
--- NOTE | 2023-06-14 11:27 | NURSING ---
I spoke with Adria with [facility] to inform him that the pt will be d/c today. I also faxed over the d/c instructions.
[2023-06-14 11:31] LABS: Bedside Glucose 260 mg/dL (74-106)
--- NOTE | 2023-06-14 14:39 | DS.PCM_ITS ---
Providers Date of Admission: 06/08/23 Date of Discharge: 06/14/23 Primary Care Physician: Dr. Claire Sharif MD Consultations 06/11/23 15:21 Consult: Gastroenterology Routine Consulting Provider: Alejandra Gastro[facility] Reason for Consult: iron deficiency anemia EMERGENT Consult: No MD Notified: Yes Date Notified: 06/11/23 Time Notified: 15:22 Method of Notification: Text 06/14/23 03:59 Consult: Onc/Wound/valet parker Routine Comment: Reason for Consult:: small open area to coccyx Reason For Visit: SEVERE SEPSIS Diagnosis Discharge Diagnosis (1) Severe sepsis: Status: Acute Code(s): A41.9 - Sepsis, unspecified organism; R65.20 - Severe sepsis without septic shock (2) Acute UTI: Status: Acute Code(s): N39.0 - Urinary tract infection, site not specified (3) MERCEDES (acute kidney injury): Status: Acute Code(s): N17.9 - Acute kidney failure, unspecified Plan #Severe sepsis due to UTI * admitted with a complaint of fever and dysuria * urinalysis showed evidence of UTI * on IV ciprofloxacin * urine cultures growing Klebsiella sensitive to Ciprofloxacin. Continue ciprofloxacin. * blood cultures negative. * * #MERCEDES * Resolved. * #Hypokalemia: K is 2.6. Will replace aggressively and trend. Mg is also low at 0.9. will monitor #Hypertension: On metoprolol and losartan. #Tachycardia: HR s up in the 120s. On metoprolol. Will give her metoprolol with a little bit of apple sauce. #Hyperlipidemia: On statin #Type 2 diabetes mellitus: On Lantus. Insulin sliding scale. Accu-Cheks ACHS. Metformin on hold. On glimepiride #Non-anion gap metabolic acidosis: Bicarb remains 18 and anion gap is 8. Likely due to MERCEDES. MERCEDES has now resolved. Will monitor #Anemia of chronic disease: * Hb today is 7 * Baseline hb appears to be ~ 10-11, but that is from 2019. * Iron panel done on 06/08/2023 showed evidence of iron deficiency anemia with iron of 10 and iron saturation of 4.6. * On IV pantoprazole 40 mg twice daily. Hold aspirin. * GI on board. For EGD today. #Glaucoma: on latanoprost. DVT prophylaxis: SCDs Medications at Discharge Home Medications latanoprost 0.005 % eye drops 1 drp QHS Check with primary doctor 04/04/17 losartan 100 mg tablet 100 mg PO QHS Check with primary doctor 04/04/17 metoprolol tartrate 100 mg tablet 200 mg PO BID Check with primary doctor 04/04/17 simvastatin 10 mg tablet (Zocor) 10 mg PO QHS Check with primary doctor 04/04/17 acetaminophen 500 mg tablet 1,000 mg (2 x 500 mg) PO Q6H PRN Pain Score 1-3/10 06/15/19 amlodipine 2.5 mg tablet 10 mg PO 2000 06/08/23 glimepiride 1 mg tablet 2 mg PO DAILY@0800 06/08/23 metformin 500 mg tablet 1,000 mg PO BID 06/08/23 pantoprazole 40 mg tablet,delayed release 40 mg PO BID #60 tabs 06/14/23 Hospital Course Operations None Procedures EGD Summary of Care Provided Minutes Spent on Discharge: 55 Hospital Course: Patient is an 88-year-old female with a past medical history as outlined was admitted through the ED on 03/08/2023 with a complaint of fever and generalized weakness. She had been treated for UTI about 2 to 3 weeks prior to admission by her PCP. She did not know which antibiotics to. She had been having some dysuria over the past several days prior to admission. On admission creatinine was also 2.51 and hemoglobin was 8.8. Urinalysis showed evidence of UTI. She met sepsis criteria and was admitted and managed for sepsis due to UTI. She was started on IV ciprofloxacin due to allergies to cephalosporins. She was hydrated with IV fluids. Urine culture grew Klebsiella sensitive to ciprofloxacin. She completed a 5-day course of ciprofloxacin. Hospital course was complicated by hypokalemia and hypomagnesemia which resolved with correction. Hospital course was complicated by acute on chronic anemia with hemoglobin going as low as 7. Iron panel showed iron deficiency anemia. Gastroenterology was therefore consulted and she had EGD on 06/13/2023 which showed an oozing duodenal ulcer with pigmented material which was injected and treated with argon plasma coagulation. She was placed on p.o. pantoprazole 40 mg twice daily for 12 weeks. Patient declined going to any facility and preferred to go home with her daughter. She was therefore discharged home on 06/14/2023. She was transfused a unit of her red blood cells to shore her up discharge prior to discharge as her hemoglobin was 7.2 with a baseline of around 9. She was discharged with a prescription for p.o. pantoprazole 40 mg twice daily. She is follow-up with her primary care doctor and follow-up with gastroenterology on outpatient basis within 1 to 2 weeks. Patient seen and examined prior to discharge. Daughter was by her bedside. She had no active complaints and had an uneventful night. Review of systems otherwise negative. Labs and vitals reviewed. Home medication reviewed and reconciled. Physical Exam Const alert, oriented x3 and no apparent distress Constitutional Narrative: frail General Appearance: cooperative and comfortable Orientation / Consciousness: awake HEENT normocephalic, head/scalp atraumatic, hearing grossly normal bilaterally, moist oral mucous membranes and oropharynx normal Mouth: oral and palatal mucosa normal Eyes PERRL and EOMs intact bilaterally Neck no lymphadenopathy, supple and no JVD Lymph Lymphatic: no lymphadenopathy noted and no lymphedema noted Resp normal respiratory effort, normal air movement, no use of accessory muscles and clear to auscultation bilaterally Cardio regular rate, regular rhythm, S1 normal heart sound, S2 normal heart sound and no murmurs Cardio Narrative: tachycardic GI normal to inspection, nondistended, normoactive bowel sounds, soft to palpation and non-tender Extremity normal to inspection, full ROM, normal capillary refill, no clubbing, cyanosis or edema and no calf tenderness General Extremity: no tenderness to palpation of joints or extremities Skin no rashes or lesions noted General Skin Exam: no breakdown Neuro oriented x3, CN's II-XII intact bilaterally, moves all extremities, no focal motor deficits and no sensory deficits noted Sensorium / Orientation: awake and alert Motor Exam: strength 5/5 throughout and general weakness Psych thought process normal and cooperative Appearance: appropriate Weight / BMI Weight Weight: 97 lb 10.636 oz Body Mass Index (BMI) 16.7 ABG / Lab / Microbiology Data 06/14/23 06:50 06/14/23 06:50 Laboratory: Laboratory Results - last 24 hr 06/13/23 11:15: POC Glucose 195 H 06/13/23 16:05: Potassium 3.5 06/13/23 16:27: POC Glucose 173 H 06/13/23 20:23: POC Glucose 202 H 06/14/23 06:26: POC Glucose 162 H 06/14/23 06:50: WBC 6.4, RBC 2.55 L, Hgb 7.2 L, Hct 23.2 L, MCV 91.0, MCH 28.2, MCHC 31.0 L, RDW Std Deviation 67.7 H, RDW Coeff of Alanna 20.3 H, Plt Count 368, MPV 9.4, Immature Gran % (Auto) 0.900, Neut % (Auto) 77.2 H, Lymph % (Auto) 15.3 L, [place] % (Auto) 5.3, Eos % (Auto) 1.1, Baso % (Auto) 0.2, Absolute Neuts (auto) 4.9, Absolute Lymphs (auto) 0.98, Nucleated RBC % 0, Hypochromasia 2+, Anisocytosis 2+, Sodium 141, Potassium 3.4 L, Chloride 109 H, Carbon Dioxide 22.0, Anion Gap 10, BUN 11, Creatinine 0.92, Estim Creat Clear Calc 30.13, Est GFR (MDRD) Af Amer 75, Est GFR (MDRD) Non-Af 62, BUN/Creatinine Ratio 12.0, Glucose 178 H, Calcium 8.3 L 06/14/23 11:00: Blood Type O POSITIVE, Antibody Screen NEGATIVE, Crossmatch See Detail 06/14/23 11:10: POC Glucose 260 H Microbiology: Microbiology 06/08/23 14:15 Blood Culture (Wb) - Anticubital Right Blood Culture - Final No growth in 5 days. 06/08/23 14:10 Blood Culture (Wb) - Anticubital Left Blood Culture - Final No growth in 5 days. 06/11/23 16:30 Mucosa - Nasopharyngeal Respiratory Panel (PCR) - Final 06/09/23 19:50 Stool Enteric Bacteriology - Final 06/09/23 19:50 Stool C. difficile DNA Amplification - Final 06/08/23 15:00 Urine, Catheterized Urine Culture - Final Klebsiella pneumoniae sp pneum D/C Instructions Discharge Diet: Low fat / Low cholesterol Discharge Activity: Return to Normal Activity Weight Bearing Status: Weight bearing as tolerated Call your doctor if you observe: Fever of 101 or Higher, Shortness of breath, Dizziness, Swelling in the ankles, Chest pain and Increased palpitations (irregular heartbeat) Meaningful Use Info Meaningful Use Diagnoses (Choose all that apply): None applicable Discharge Plan Admission Admit Date/Time: 06/08/23 16:02 Primary Reason for Your Visit: UTI Attending Provider: Mary Srivastava Primary Care Provider: Claire Sharif Consulting Providers: Francisco Motta Instructions Patient Instructions: Anemia, UTI Ch Discharge Orders/Prescriptions Prescriptions: New pantoprazole 40 mg tablet,delayed release (DR/EC) 40 mg PO BID Qty: 60 1RF Continued latanoprost 1 DROP bottle 1 drp Each Eye QHS metoprolol tartrate 100 MG tablet 200 mg PO BID Patient Comments: 2 at breakfast 2 HS simvastatin [Zocor] 10 MG tablet 10 mg PO QHS losartan 100 MG tablet 100 mg PO QHS acetaminophen 500 MG tablet 1,000 mg PO Q6H PRN (Reason: Pain Score 1-3/10) 0RF amlodipine 2.5 MG tablet 10 mg PO 2000 glimepiride 1 MG tablet 2 mg PO DAILY@0800 metformin 500 mg tablet 1,000 mg PO BID Discontinued aspirin 81 MG tablet,chewable 81 mg PO DAILY@0800 0RF Referrals / Follow Up: Claire Sharif MD [Primary Care Provider] - Within 2 Weeks FriendDarren DO [Med Staff - Active Staff] - Within 2 Weeks Disposition Disposition (needs filled in before D/C Order can be placed): Home Health Service Charges/Coding Visit Charges Inpatient E&M: 81614 Disch Hosp >30min
== END 2023-06-14 18:30 | disposition home health service (06) | DRG 871 ==
LOC: ED 15:56 → PCU 16:13
PROVIDERS: Anesthesiology; Hospitalist; Internal Medicine; Internal Medicine Gastroenterology; Physician Assistant; Admitting Provider Family Medicine; Emergency Provider Emergency Medicine; PCP Internal Medicine; Visit Provider Student in an Organized Health Care Education/Training Program
PROC: 0DJ08ZZ Inspection of Upper Intestinal Tract, Via Natural or Artificial Opening Endoscopic (ICD-10-PCS; CPT 43235; principal; 2023-06-13 16:00)
DX: A41.59 Other Gram-negative sepsis (principal); K26.4 Chronic or unspecified duodenal ulcer with hemorrhage; N17.9 Acute kidney failure, unspecified; N39.0 Urinary tract infection, site not specified; D63.8 Anemia in other chronic diseases classified elsewhere; K22.2 Esophageal obstruction; E11.22 Type 2 diabetes mellitus with diabetic chronic kidney disease; N18.30 Chronic kidney disease, stage 3 unspecified; R65.20 Severe sepsis without septic shock; I12.9 Hypertensive chronic kidney disease with stage 1 through stage 4 chronic kidney disease, or unspecified chronic kidney disease; D50.9 Iron deficiency anemia, unspecified; E78.5 Hyperlipidemia, unspecified; E87.6 Hypokalemia; K44.9 Diaphragmatic hernia without obstruction or gangrene; E83.42 Hypomagnesemia; K20.0 Eosinophilic esophagitis; H40.9 Unspecified glaucoma; Z79.84 Long term (current) use of oral hypoglycemic drugs; Z79.82 Long term (current) use of aspirin; Z88.1 Allergy status to other antibiotic agents; Z87.891 Personal history of nicotine dependence
CPT/HCPCS: 36415; 51702; 71045; 80048; 80053; 81001; 82728; 82947; 82962; 83036; 83540; 83550; 83605; 83735; 84100; 84132; 85014; 85018; 85025; 85610; 85730; 86850; 86900; 86901; 86920; 86922; 87040; 87077; 87086; 87088; 87186; 87329; 87493; 87506; 87633; 88305; 88313; 92610; 93005; 97110; 97116; 97162; 97166; 97530; 97535; 97803; 99285; J7030; J7040; J7120; P9016; A4216; J0744; J7799

== ENCOUNTER 2023-06-19 00:45 | Observation (INO) | payer MEDICARE, OTHER, SELFPAY ==
[2023-06-19] VITALS (15 sets, daily range): BP systolic 98–139; BP diastolic 33–54; PULSE 69–108; RESP 14–19; TEMP 35.9–37; O2SAT 97–100; BMI 16.6; BMI 18.1
[2023-06-19] MEDS: Dextrose 50%-Water 25 GM/50 ML DISP.SYRIN IV (01:07)
[2023-06-19 01:15] LABS: Absolute Lymphocyte Count 1.27 X10^3/uL (0.83-4.51); Absolute Neutrophil Count 9.3 X10^3/uL (2.0-7.7); Basophil# 0.03 X10^3/uL; Basophil% 0.3 % (0-1); Eosinophil# 0.13 X10^3/uL; Eosinophils% 1.1 % (0-5); Hematocrit 32.8 % (37-47); Hemoglobin 9.9 g/dL (12.0-15.0); Lymphocyte # 1.27 X10^3/ul (0.83-4.51); Lymphocyte % 11.2 % (19-41); Mean Corp Hgb Conc 30.2 g/dL (32-36); Mean Corpuscular Hgb 28.2 pg (27.0-32.0); Mean Corpuscular Volume 93.4 fL (81-99); Mean Platelet Vol. 9.3 fl (6.2-12.0); Monocyte% 4.4 % (0-10); NRBC Flagged by Analyzer 0 % (0-5); Neutrophil # 9.31 X10^3/uL (2.7-7.7); Neutrophil % 82.4 % (47-70); POSITIVE MORPHOLOGY YES; Platelet Count 467 K/mm3 (150-450); RBC Distribution Width CV 19.4 % (11.6-14.6); RBC Distribution Width SD 66.8 fl (35.1-43.9); Red Blood Count 3.51 M/mm3 (4.2-5.4); White Blood Count 11.3 K/mm3 (4.4-11.0)
[2023-06-19 01:20] LABS: Differential Indicated SCAN CRITERIA MET
[2023-06-19 01:59] LABS: Bedside Glucose 161 mg/dL (74-106)
[2023-06-19 02:02] LABS: Mucous, Urine 0 SEEN /hpf (<or=2+); Squamous Epithelial Cells - UA 0 SEEN /hpf (5-10)
[2023-06-19 02:04] LABS: Color, Urine Yellow (Yellow); Glucose, Dipstick Normal (Normal); Ketone-Dipstick Negative (Negative); Leukocyte Esterase-Dipstick 500 /ul (Negative); Nitrite-Dipstick Negative (Negative); Occult Blood-Urine 25 /ul (Negative); Protein-Dipstick 100 mg/dl (Negative); Specific Gravity, Urine 1.015 (1.002-1.030); Urine Bilirubin Dipstick Negative (Negative); Urine Clarity Clear (Clear); Urine Urobilinogen Normal (Normal)
[2023-06-19 02:13] LABS: Anisocytosis 2+; Platelet Estimate SLT INC (ADEQ)
[2023-06-19 02:19] LABS: Bacteria 1+ /hpf (None Seen); Hyaline Cast 0-5 SEEN /lpf (0-5); Red Blood Cells-Urine 0-5 SEEN /hpf (0-5); White Blood Cells 10-25 SEEN /hpf (0-5)
[2023-06-19 02:24] LABS: Anion Gap 7 (5-15); BUN 33 mg/dL (7-18); BUN/Creat Ratio 17.6 RATIO (10-20); Calcium,Total 8.7 mg/dL (8.5-10.1); Chloride 111 mmol/L (98-107); Creatinine, Serum 1.87 mg/dL (0.55-1.02); EST Glomerular Filtration Rate 27 mL/min (>60); Est Glom Filt Rate - Afr Amer 33 mL/min (>60); Estimated Creatinine Clearance 14.69 ml/min; Glucose 34 mg/dL (74-106); Potassium 3.7 mmol/L (3.5-5.1); Sodium Level 138 mmol/L (136-145)
[2023-06-19] MEDS: 0.9% Normal Saline (250mL Bag) 250 ML 15 ML IV (03:06)
[2023-06-19] MEDS: Ciprofloxacin 400 MG/200 ML BAG 200 MG IV (03:10)
--- NOTE | 2023-06-19 03:22 | EX.ED.DYSGE1 ---
HPI History of Present Illness Chief Complaint: Hypoglycemia Informant: patient and family Narrative Narrative: Patient presents via EMS secondary to weakness and low blood sugar. Patient was admitted to the hospital June 08 to with UTI and severe sepsis. She is no longer on antibiotics. Daughter states this evening she was in the bathroom multiple times with diarrhea. Patient slumped over and was unresponsive for a brief time. When EMS arrived patient was alert and talking but her blood sugar was 38. They were unable to establish a line in route. On arrival patient denied pain. She admits to not eating well since discharge from the hospital but has been taking her oral diabetes medications. [facility] Medical History (Updated 06/19/23 @ 03:[address] Ronel Casas MD) Diabetes Hyperlipidemia Hypertension Urinary tract infection Home Medications latanoprost 0.005 % eye drops 1 drp QHS Check with primary doctor 04/04/17 [History Last Taken Unknown] losartan 100 mg tablet 100 mg PO QHS Check with primary doctor 04/04/17 [History Last Taken Unknown] metoprolol tartrate 100 mg tablet 200 mg PO BID Check with primary doctor 04/04/17 [History Last Taken 05/21/19] simvastatin 10 mg tablet (Zocor) 10 mg PO QHS Check with primary doctor 04/04/17 [History Last Taken 05/21/19 21:00] acetaminophen 500 mg tablet 1,000 mg (2 x 500 mg) PO Q6H PRN Pain Score 1-3/10 06/15/19 [Rx Last Taken Unknown] amlodipine 2.5 mg tablet 10 mg PO 2000 06/08/23 [History Last Taken Unknown] glimepiride 1 mg tablet 2 mg PO DAILY@0800 06/08/23 [History Last Taken Unknown] metformin 500 mg tablet 1,000 mg PO BID 06/08/23 [History Last Taken Unknown] pantoprazole 40 mg tablet,delayed release 40 mg PO BID #60 tabs 06/14/23 [Rx Last Taken Unknown] Allergy/AdvReac Type Severity Reaction Status Date / Time betaxolol [From Betoptic] Allergy Itching Verified 06/08/23 14:18 brimonidine [From Alphagan P] Allergy Itching Verified 06/08/23 14:18 cephalexin [From Keflex] Allergy Rash Verified 06/08/23 14:18 nabumetone [From Relafen] Allergy Rash Verified 06/08/23 14:18 Family History Other Diabetes Heart disease Surgical History Status post laparoscopy with lysis of adhesions Social History household members: family housing: house Smoking Status: Former smoker ROS ROS ED Constitutional Constitutional ED: Denies chills or fever(s) Eyes Eyes: Denies discharge from eye(s) ENT ENT ED: Denies discharge from eye(s), rhinorrhea or sore throat Cardiovascular Cardiovascular: Denies chest pain or palpitations Respiratory/Chest Respiratory/Chest: Denies cough or dyspnea Gastrointestinal Gastrointestinal: Reports diarrhea; Denies abdominal pain, nausea or vomiting Genitourinary Genitourinary ED: Denies dysuria Musculoskeletal Musculoskeletal: Denies back pain or extremity pain Integumentary Denies Abrasions or rash Neurologic Neurologic: Reports weakness; Denies headache(s) Psychiatric Psychiatric: Denies anxiety or depression Allergic/Immunologic Allergic/Immunologic ED: Denies lip swelling or urticaria EXAM Physical Exam Const Vital Signs: 06/19/23 00:47 06/19/23 03:05 Temperature 97.8 F Temperature Source Temporal Pulse Rate 70 70 Respiratory Rate 16 16 Blood Pressure 114/53 L 99/38 L Blood Pressure Mean 73 58 Pulse Ox 100 100 Oxygen Delivery Method Room Air Room Air Positive cachectic General Appearance ED: cachectic Nutritional Appearance: cachectic Eyes EOMs intact bilaterally Neck no lymphadenopathy Chest Wall inspection of chest normal and palpation of chest normal Resp normal respiratory effort and clear to auscultation bilaterally Cardio regular rate and regular rhythm GI non-tender Auscultation: hypoactive bowel sounds Palpation: soft Extremity normal to inspection Neuro oriented x3 and no sensory deficits noted Sensorium / Orientation: alert MDM MDM MDM Narrative Medical decision making narrative: IV line established on arrival and patient given an amp of D50. Blood sugar went from 38 up to 161. Labwork obtained to evaluate for leukocytosis, anemia, and electrolyte derangement. Urinalysis obtained to evaluate for infection/hematuria. History & Record Review Discussion w/independent historian: EMS personnel, Patient and Family Additional record(s) reviewed:: Prior inpatient record, Prior ED visit and Prior labs Lab Data Attestation: I reviewed the patient's lab results. Labs: Laboratory Results - last 24 hr 06/19/23 06/19/23 06/19/23 01:05 01:40 01:55 WBC 11.3 H RBC 3.51 L Hgb 9.9 L Hct 32.8 L MCV 93.4 MCH 28.2 MCHC 30.2 L RDW Std Deviation 66.8 H RDW Coeff of Alanna 19.4 H Plt Count 467 H MPV 9.3 Immature Gran % (Auto) 0.600 Neut % (Auto) 82.4 H Lymph % (Auto) 11.2 L [facility] % (Auto) 4.4 Eos % (Auto) 1.1 Baso % (Auto) 0.3 Absolute Neuts (auto) 9.3 H Absolute Lymphs (auto) 1.27 Nucleated RBC % 0 Platelet Estimate SLT INC Anisocytosis 2+ Sodium 138 Potassium 3.7 Chloride 111 H Carbon Dioxide 20.0 L Anion Gap 7 BUN 33 H Creatinine 1.87 H Estim Creat Clear Calc 14.69 Est GFR (MDRD) Af Amer 33 L Est GFR (MDRD) Non-Af 27 L BUN/Creatinine Ratio 17.6 Glucose 34 L* Calcium 8.7 Urine Color Yellow Urine Clarity Clear Urine pH 5.0 Ur Specific [place] 1.015 Urine Protein 100 H Urine Glucose (UA) Normal Urine Ketones Negative Urine Occult Blood 25 H Urine Nitrite Negative Urine Bilirubin Negative Urine Urobilinogen Normal Ur Leukocyte Esterase 500 H Urine RBC 0-5 SEEN Urine WBC 10-25 SEEN Ur Squamous Epith Cells 0 SEEN Urine Bacteria 1+ Hyaline Casts 0-5 SEEN Urine Mucus 0 SEEN POC Glucose 161 H Treatment and Re-Evaluation :: White blood cell count is 11.3 with 82% neutrophils. Hemoglobin is 9.9 which is improved when compared to prior values. Chemistry studies reveal a bicarb of 20. Her BUN is 33 and creatinine is 1.87. Glucose on her initial lab work that was obtained with IV start was 34. Patient's creatinine on the at the time of discharge was 0.92. Urinalysis appears to show continued infection with 1+ bacteria, 10-25 white cells, 500 leukocyte esterase. She had Klebsiella on her prior urine culture. She is treated with IV Cipro. At this time repeat blood sugar is 125. Family states that she has not been eating well. She does have evidence of MERCEDES with worsened creatinine. I will speak with hospitalist regarding admission for further treatment. Discharge Plan Triage Chief Complaint: Hypoglycemia Other Complaint: Diarrhea Weakness ED Provider: Ronel Casas Dx/Rx/DC Orders Clinical Impression: MERCEDES (acute kidney injury), UTI (urinary tract infection), Hypoglycemia Prescriptions: No Action latanoprost 1 DROP bottle 1 drp Each Eye QHS metoprolol tartrate 100 MG tablet 200 mg PO BID Patient Comments: 2 at breakfast 2 HS simvastatin [Zocor] 10 MG tablet 10 mg PO QHS losartan 100 MG tablet 100 mg PO QHS acetaminophen 500 MG tablet 1,000 mg PO Q6H PRN (Reason: Pain Score 1-3/10) 0RF amlodipine 2.5 MG tablet 10 mg PO 2000 glimepiride 1 MG tablet 2 mg PO DAILY@0800 metformin 500 mg tablet 1,000 mg PO BID pantoprazole 40 mg tablet,delayed release (DR/EC) 40 mg PO BID Qty: 60 1RF Primary Care Provider: Claire Sharif Referrals: Claire Sharif MD [Primary Care Provider] - Disposition Disposition: Acute Care Hospital [facility]
[2023-06-19] MEDS: 0.9% Normal Saline (1000mL) 1,000 ML 100 ML IV (03:35)
[2023-06-19 04:00] LABS: Bedside Glucose 125 mg/dL (74-106)
--- NOTE | 2023-06-19 04:51 | PCM.HP.STD ---
HPI - General General Date of Admission: 06/19/23 Date of Service: 06/19/23 Chief Complaint: Low blood sugar HPI Narrative VERONICA HUNT, is a 88 F with a significant history of diabetes; hyperlipidemia; hypertension and who was admitted on 06/08/2023 and discharged on 06/14/2023 with sepsis secondary to UTI and MERCEDES presenting to the emergency department via squad with low blood glucose. Reportedly patient blood glucose was in the 30s. Patient was weak; shaky and clammy. Further patient has had diarrhea (multiple loose stools) and while her daughter was cleaning the patient; patient slumped over and was unresponsive. Subsequently patient's called the paramedics and patient was brought to the emergency department. Because paramedics could not get an IV access patient did not receive any medication for her hypoglycemia emroute to the hospital. At the emergency department patient received D50. Patient blood glucose corrected. However she was found to have acute kidney injury and abnormal urinalysis. Patient reports increased frequency of urination. Reportedly upon discharge from the hospital patient appetite has been very low; and because she was instructed that she could take her medication with applesauce the patient continue take all her medications including hypoglycemic medications with applesauce. Patient has been weak. 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 [facility] Medical History Diabetes Hyperlipidemia Hypertension Urinary tract infection Home Medications latanoprost 0.005 % eye drops 1 drp QHS Check with primary doctor 04/04/17 [History Last Taken Unknown] losartan 100 mg tablet 100 mg PO QHS Check with primary doctor 04/04/17 [History Last Taken Unknown] metoprolol tartrate 100 mg tablet 200 mg PO BID Check with primary doctor 04/04/17 [History Last Taken 05/21/19] simvastatin 10 mg tablet (Zocor) 10 mg PO QHS Check with primary doctor 04/04/17 [History Last Taken 05/21/19 21:00] acetaminophen 500 mg tablet 1,000 mg (2 x 500 mg) PO Q6H PRN Pain Score 1-3/10 06/15/19 [Rx Last Taken Unknown] amlodipine 2.5 mg tablet 10 mg PO 2000 06/08/23 [History Last Taken Unknown] glimepiride 1 mg tablet 2 mg PO DAILY@0800 06/08/23 [History Last Taken Unknown] metformin 500 mg tablet 1,000 mg PO BID 06/08/23 [History Last Taken Unknown] pantoprazole 40 mg tablet,delayed release 40 mg PO BID #60 tabs 06/14/23 [Rx Last Taken Unknown] Allergy/AdvReac Type Severity Reaction Status Date / Time betaxolol [From Betoptic] Allergy Itching Verified 06/08/23 14:18 brimonidine [From Alphagan P] Allergy Itching Verified 06/08/23 14:18 cephalexin [From Keflex] Allergy Rash Verified 06/08/23 14:18 nabumetone [From Relafen] Allergy Rash Verified 06/08/23 14:18 Family History Other Diabetes Heart disease Surgical History Status post laparoscopy with lysis of adhesions Social History household members: family housing: house Smoking Status: Former smoker ROS ROS Narrative Pertinent positives and pertinent negatives as noted in HPI. All other systems were reviewed and are negative Vital Signs Vital Signs Vital Signs: 06/19/23 00:47 06/19/23 03:05 06/19/23 03:41 Temperature 97.8 F 97.4 F L Temperature Source Temporal Oral Pulse Rate 70 70 72 Respiratory Rate 16 16 15 Blood Pressure 114/53 L 99/38 L 108/50 L Blood Pressure Mean 73 58 69 Pulse Ox 100 100 100 Oxygen Delivery Method Room Air Room Air Room Air Weight Weight: 43.9 kg Body Mass Index (BMI) 16.6 Physical Exam Narrative Physical exam: General: Well-nourished, well-developed. Head: Normocephalic, atraumatic, no tenderness Eyes: Vision is grossly intact. EOMI ENT, no trauma, moist mucous membranes, no rhinorrhea Neck: Nontender, No thyromegaly. CVS: Regular rate and rhythm. S1-S2 present. No murmur, gallop or rub. Respiratory : clear to auscultation bilaterally, chest wall nontender Abdomen: Soft, nontender, nondistended, normal bowel sounds, no masses : Deferred Back: Nontender, no CVA tenderness. Extremities: Cachectic. Nontender full range of motion, no trauma Skin: Normal color, no trauma, abrasions Neuro: Alert, oriented, cranial nerves II through XII grossly intact. Psychiatry: Normal mood. Normal affect. Not depressed. Not anxious. Results Lab / Micro Data 06/19/23 01:05 06/19/23 01:05 Labs: Laboratory Results - last 24 hr 06/19/23 01:05: WBC 11.3 H, RBC 3.51 L, Hgb 9.9 L, Hct 32.8 L, MCV 93.4, MCH 28.2, MCHC 30.2 L, RDW Std Deviation 66.8 H, RDW Coeff of Alanna 19.4 H, Plt Count 467 H, MPV 9.3, Immature Gran % (Auto) 0.600, Neut % (Auto) 82.4 H, Lymph % (Auto) 11.2 L, [place] % (Auto) 4.4, Eos % (Auto) 1.1, Baso % (Auto) 0.3, Absolute Neuts (auto) 9.3 H, Absolute Lymphs (auto) 1.27, Nucleated RBC % 0, Platelet Estimate SLT INC, Anisocytosis 2+, Sodium 138, Potassium 3.7, Chloride 111 H, Carbon Dioxide 20.0 L, Anion Gap 7, BUN 33 H, Creatinine 1.87 H, Estim Creat Clear Calc 14.69, Est GFR (MDRD) Af Amer 33 L, Est GFR (MDRD) Non-Af 27 L, BUN/Creatinine Ratio 17.6, Glucose 34 L*, Calcium 8.7 06/19/23 01:40: POC Glucose 161 H 06/19/23 01:55: Urine Color Yellow, Urine Clarity Clear, Urine pH 5.0, Ur Specific [place] 1.015, Urine Protein 100 H, Urine Glucose (UA) Normal, Urine Ketones Negative, Urine Occult Blood 25 H, Urine Nitrite Negative, Urine Bilirubin Negative, Urine Urobilinogen Normal, Ur Leukocyte Esterase 500 H, Urine RBC 0-5 SEEN, Urine WBC 10-25 SEEN, Ur Squamous Epith Cells 0 SEEN, Urine Bacteria 1+, Hyaline Casts 0-5 SEEN, Urine Mucus 0 SEEN 06/19/23 03:13: POC Glucose 125 H Assessment & Plan Assessment/Plan (1) Hypoglycemia: (2) UTI (urinary tract infection): QUALIFIERS: Urinary tract infection type: acute cystitis Hematuria presence: without hematuria Qualified Code(s): N30.00 - Acute cystitis without hematuria (3) MERCEDES (acute kidney injury): PLAN: Plan Acute Hypoglycemia Case was discussed with emergency department doctor and patient will be admitted for hypoglycemia in the setting of taking glimepiride factors long-acting. Discontinue all home hypoglycemic regimen. Serial Accu-Cheks ordered. Acute diarrhea Stool studies including stool lactoferrin; C. difficile PCR and toxin; and enteric pathogen panel; O&P; Giardia lamblia studies. 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 Gentle IV hydration. Avoid nephrotoxins. Hold home losartan. Severe protein calorie malnutrition Ensure supplementation ordered. DVT prophylaxis: Subcutaneous heparin ordered Time spent in the patient's overall evaluation,decision-making process, review of diagnostic data, adjustment of management, discussion with other providers, nursing and ancillary staff involved in patient's care documentation, 70 minutes. Charges/Coding Visit Charges Inpatient E&M: 91316 Init Hosp L3
[2023-06-19 06:28] LABS: Bedside Glucose 95 mg/dL (74-106)
--- NOTE | 2023-06-19 08:31 | PN.HOSP_ITS ---
Reason for Visit Reason for Visit: Diagnoses Hypoglycemia, unspecified (06/19/23) Acute kidney failure, unspecified (06/19/23) Acute cystitis without hematuria (06/19/23) Subjective Subjective Was hypoglycemic again today and received dextrose again. Objective Data Objective Data Vital Signs: Vital Signs Temp Pulse Resp BP Pulse Ox O2 Del Method 37.0 C 75 19 H 111/41 L 97 Room Air 06/19/23 08:17 06/19/23 08:17 06/19/23 08:17 06/19/23 08:17 06/19/23 08:17 06/19/23 08:17 Oxygen Delivery Method Room Air Weight: 43.9 kg Body Mass Index (BMI) 16.6 Intake & Output: Intake and Output for Last 24 Hours 06/17/23 06/18/23 06/19/23 23:59 23:59 23:59 Intake Total 201.25 / 201.25 Balance 201.25 / 201.25 Lab / Micro Data 06/19/23 01:05 06/19/23 01:05 Labs: Laboratory Results - last 24 hr 06/19/23 01:05: WBC 11.3 H, RBC 3.51 L, Hgb 9.9 L, Hct 32.8 L, MCV 93.4, MCH 28.2, MCHC 30.2 L, RDW Std Deviation 66.8 H, RDW Coeff of Alanna 19.4 H, Plt Count 467 H, MPV 9.3, Immature Gran % (Auto) 0.600, Neut % (Auto) 82.4 H, Lymph % (Auto) 11.2 L, [place] % (Auto) 4.4, Eos % (Auto) 1.1, Baso % (Auto) 0.3, Absolute Neuts (auto) 9.3 H, Absolute Lymphs (auto) 1.27, Nucleated RBC % 0, Platelet Estimate SLT INC, Anisocytosis 2+, Sodium 138, Potassium 3.7, Chloride 111 H, Carbon Dioxide 20.0 L, Anion Gap 7, BUN 33 H, Creatinine 1.87 H, Estim Creat Clear Calc 14.69, Est GFR (MDRD) Af Amer 33 L, Est GFR (MDRD) Non-Af 27 L, BUN/Creatinine Ratio 17.6, Glucose 34 L*, Calcium 8.7 06/19/23 01:40: POC Glucose 161 H 06/19/23 01:55: Urine Color Yellow, Urine Clarity Clear, Urine pH 5.0, Ur Specific [place] 1.015, Urine Protein 100 H, Urine Glucose (UA) Normal, Urine Ketones Negative, Urine Occult Blood 25 H, Urine Nitrite Negative, Urine Bilirubin Negative, Urine Urobilinogen Normal, Ur Leukocyte Esterase 500 H, Urine RBC 0-5 SEEN, Urine WBC 10-25 SEEN, Ur Squamous Epith Cells 0 SEEN, Urine Bacteria 1+, Hyaline Casts 0-5 SEEN, Urine Mucus 0 SEEN 06/19/23 03:13: POC Glucose 125 H 06/19/23 06:09: POC Glucose 95 Physical Exam Const alert and no apparent distress Constitutional Narrative: cachectic. HEENT head/scalp atraumatic and moist oral mucous membranes Resp normal respiratory effort, no retractions, no use of accessory muscles and clear to auscultation bilaterally Cardio regular rate, regular rhythm, S1 normal heart sound and S2 normal heart sound GI normal to inspection, nondistended, normoactive bowel sounds, soft to palpation, non-tender and non-distended Extremity normal to inspection Assessment & Plan Assessment/Plan (1) Hypoglycemia: PLAN: ongoing received dextrose and glucagon continue to hold glimepiride and metformin monitor If recurs, then will place on D5 (2) UTI (urinary tract infection): QUALIFIERS: Hematuria presence: without hematuria Urinary tract infection type: acute cystitis Qualified Code(s): N30.00 - Acute cystitis without hematuria PLAN: UA this admission was equivocal, however, UCx on 06/08 showed Klebsiella. expectant monitoring. (3) MERCEDES (acute kidney injury): PLAN: likely prerenal IVF hold losartan (4) Diarrhea: PLAN: check for C. diff and enteric media monitor PLAN: Plan Chronic conditions: * DM2: NID. SSI. hold oral agents * Severe protein calorie malnutrition Ensure supplementation ordered. Patient endorses that she gets full easily but does not get nauseated. Encouraged patient to emphasized eating more. * HTN: continue amlodipine. no ARB. DVT prophylaxis: Subcutaneous heparin ordered Given the recurrent hypoglycemia, would like to monitor her longer before considering discharge. Charges/Coding Visit Charges Inpatient E&M: 08438 Subs Hosp L2
[2023-06-19 10:48] LABS: Bedside Glucose 209 mg/dL (74-106)
[2023-06-19] MEDS: Pantoprazole Sodium 40 MG Tablet PO ×2 (10:53→22:10)
[2023-06-19] MEDS: Heparin Injection (Vial) 5,000 UNIT/ML VIAL 5000 UNIT SC ×2 (10:53→22:10)
[2023-06-19] MEDS: 0.9% Saline Lock 10 ML Syringe IV ×2 (10:55→23:23)
[2023-06-19 11:46] LABS: Bedside Glucose 170 mg/dL (74-106)
[2023-06-19] MEDS: 0.9% Normal Saline (1000mL) 1,000 ML 125 ML IV ×2 (13:35→19:08)
--- NOTE | 2023-06-19 14:11 | CHAPLAIN ---
Type of Pastoral Visit _x__ Initial Visit ___ Follow-up Visit ___ On-call Visit ___ General Patient Visit ___ Spiritual Assessment ___ Family Conference ___ Bereavement ___ Rapid Response ___ Code Blue ___ Other (describe below) Pastoral Care Referral From _x__ Patient ___ Family ___ Nurse ___ Physician ___ Draw Off Worker ___ Seed Laboratory Assistant ___ Other (describe below) Sacrament/Intervention _x__ Active listening ___ Anointing ___ Amish ___ Bereavement ___ Communion ___ Sola exploration ___ ___ Life review _x__ Prayer ___ Reconciliation ___ Sacrament of Sick _x__ Supportive presence ___ Wedding ___ Other (describe below) Pastoral Comments patient was just recently admitted and seen by this tile professional; daughter is with her; both recount the reason for return and express exhaustion; offer of support and prayer is accepted; due to pt needing hygiene care the visit was brief
--- NOTE | 2023-06-19 14:48 | WOUNDNOTE ---
wound photo: sacrum
--- NOTE | 2023-06-19 15:09 | CASEMGMT ---
JESUS BHATTI Readmission Review: Index: 06/08 thru 06/14 Dx: Sepsis d/t UTI Readmission: 06/19/23 Dx: hypoglycemia, MERCEDES, UTI, hypoK, hypomag, and GI bleed with oozing duodenal ulcer treated with injection and argon plasma coagulation. Pt admitted on the above noted dates for the corresponding noted diagnoses. Please see discharge planning assessment performed on the index admission. Pt was discharged on index to home where pt lives with her daughter in a single story apartment. Pt was set up with home healthcare through [facility] for SN, PT/OT services. This RN DAVY met with patient at bedside. Pt alert, answering questions appropriate and able to describe the reason for her return to [facility]. Pt states she has not been eating well and states this is due to not feeling hungry. Pt states this is making her weak. Pt states she has been receiving home health services from [facility] including SN and therapy services and pt states she has been participating during their visits. Pt states she has been navigating her home with a FWW and her daughter's assistance. Pt's daughter provides all meals and performs all retail parts pro. Pt states she has been able to complete self care independently but also states she has not been able to get into the tub due to being weak. Pt states she does have a shower chair. Pt states she checks her sugar every morning and it typically runs between 160 and 170. Pt states her daughter has set up follow-up appointments with her PCP Dr. Moon and Dr. Olivas for in a couple of weeks. This RN CM spoke with pt's daughter Aniyah who states she was able to get an appointment with pt's PCP on 06/26 and scheduled pt to see Dr. Olivas in November, which was the earliest appointment she could obtain. Pt states her plan is to eat more to get stronger and return home. When asked if she could return home in her current weak state pt states no but when asked about possible ECF for daily therapy to increase strength pt states she talked to her daughter about his previously and she will not go to an ECF. PT/OT evaluation pending at this time. Pt's goal/plan: return home with daughter's assistance and [facility] SN, PT/OT resumption of care. Will continue to monitor and assist with additional dc needs as identified. Duncan Burt RN CM
--- NOTE | 2023-06-19 16:11 | CHAPLAIN ---
Type of Pastoral Visit _x__ Initial Visit ___ Follow-up Visit ___ On-call Visit ___ General Patient Visit ___ Spiritual Assessment ___ Family Conference ___ Bereavement ___ Rapid Response ___ Code Blue ___ Other (describe below) Pastoral Care Referral From _x__ Patient _x__ Family ___ Nurse ___ Physician ___ Surgical Territory Manager ___ Lot Boss ___ Other (describe below) Sacrament/Intervention _x__ Active listening ___ Anointing ___ Nondenominational ___ Bereavement ___ Communion ___ Sola exploration ___ ___ Life review _x__ Prayer ___ Reconciliation ___ Sacrament of Sick ___ Supportive presence ___ Wedding ___ Other (describe below) Pastoral Comments patient was recently seen in a previous admission; pt explains new situation and her frustration at the circumstances; daughter is present and very active in pt care; both want prayer support; as pt is uncomfortable due to bowel issues at this time the visit is short
--- NOTE | 2023-06-19 16:36 | CASEMGMT ---
Met with patient to complete ARORA form. ARORA form explained to patient who voiced understanding and signed form. Original form placed in pt?s chart and copy provided to patient. Mikaela Maria, Discharge Planning Asst.
[2023-06-19 17:04] LABS: Bedside Glucose 21 mg/dL (74-106)
[2023-06-19 17:04] LABS: Bedside Glucose > 500 mg/dL (74-106)
[2023-06-19 17:25] LABS: Bedside Glucose 110 mg/dL (74-106)
--- NOTE | 2023-06-19 18:41 | NURSING ---
Report called to PCU at this time.
[2023-06-19] MEDS: Atorvastatin Calcium 10 MG Tablet 5 MG PO (22:10)
[2023-06-19] MEDS: Latanoprost 0.005% 1 Bottle 1 DRP EACH EYE (22:11)
[2023-06-19] MEDS: Metoprolol Tartrate 100 MG Tablet 200 MG PO (22:58)
[2023-06-20] VITALS (8 sets, daily range): BP systolic 120–159; BP diastolic 40–59; PULSE 90–109; RESP 14–17; TEMP 36.8–37.2; O2SAT 95–100
[2023-06-20] MEDS: 0.9% Saline Lock 10 ML Syringe IV (02:58)
[2023-06-20] MEDS: 0.9% Normal Saline (1000mL) 1,000 ML 125 ML IV ×3 (04:21→19:58)
[2023-06-20 06:05] LABS: Absolute Lymphocyte Count 1.12 X10^3/uL (0.83-4.51); Absolute Neutrophil Count 7.6 X10^3/uL (2.0-7.7); Basophil# 0.02 X10^3/uL; Basophil% 0.2 % (0-1); Eosinophil# 0.09 X10^3/uL; Hematocrit 32.1 % (37-47); Hemoglobin 9.7 g/dL (12.0-15.0); Lymphocyte # 1.12 X10^3/ul (0.83-4.51); Lymphocyte % 12.1 % (19-41); Mean Corp Hgb Conc 30.2 g/dL (32-36); Mean Corpuscular Hgb 28.1 pg (27.0-32.0); Mean Platelet Vol. 9.5 fl (6.2-12.0); Monocyte# 0.44 X10^3/uL; Monocyte% 4.7 % (0-10); NRBC Flagged by Analyzer 0 % (0-5); Neutrophil # 7.56 X10^3/uL (2.7-7.7); Neutrophil % 81.4 % (47-70); POSITIVE MORPHOLOGY YES; Platelet Count 560 K/mm3 (150-450); RBC Distribution Width CV 18.9 % (11.6-14.6); RBC Distribution Width SD 65.3 fl (35.1-43.9); Red Blood Count 3.45 M/mm3 (4.2-5.4); White Blood Count 9.3 K/mm3 (4.4-11.0)
[2023-06-20 06:27] LABS: Differential Indicated SCAN CRITERIA MET
[2023-06-20 06:44] LABS: Anisocytosis 1+; Differential Comment SCANNED; Hypochromasia RARE
[2023-06-20 06:48] LABS: Anion Gap 8 (5-15); BUN 28 mg/dL (7-18); BUN/Creat Ratio 17.1 RATIO (10-20); Calcium,Total 8.7 mg/dL (8.5-10.1); Chloride 112 mmol/L (98-107); Creatinine, Serum 1.64 mg/dL (0.55-1.02); EST Glomerular Filtration Rate 32 mL/min (>60); Est Glom Filt Rate - Afr Amer 38 mL/min (>60); Estimated Creatinine Clearance 16.06 ml/min; Glucose 79 mg/dL (74-106); Potassium 3.7 mmol/L (3.5-5.1); Sodium Level 141 mmol/L (136-145)
--- NOTE | 2023-06-20 08:10 | PCM.PN.HOSP ---
Reason for Visit Reason for Visit: Diagnoses Hypoglycemia, unspecified (06/19/23) Acute kidney failure, unspecified (06/19/23) Acute cystitis without hematuria (06/19/23) Diarrhea, unspecified (06/19/23) Subjective Subjective No new complaints. Feels well. Objective Data Objective Data Vital Signs: Vital Signs Temp Pulse Resp BP Pulse Ox O2 Del Method 36.8 C 90 17 141/59 H 99 Room Air 06/20/23 02:53 06/20/23 02:53 06/20/23 02:53 06/20/23 02:53 06/20/23 02:53 06/20/23 02:53 Oxygen Delivery Method Room Air Weight: 42.1 kg Body Mass Index (BMI) 18.1 Intake & Output: Intake and Output for Last 24 Hours 06/18/23 06/19/23 06/20/23 23:59 23:59 23:59 Intake Total 2497.58 / 2497.58 1000 / 1000 Output Total 650 / 650 Balance 2497.58 / 2497.58 350 / 350 Lab / Micro Data 06/20/23 05:26 06/20/23 05:26 Labs: Laboratory Results - last 24 hr 06/19/23 08:41: POC Glucose 21 L* 06/19/23 08:48: POC Glucose > 500 H* 06/19/23 09:52: POC Glucose 209 H 06/19/23 11:18: POC Glucose 170 H 06/19/23 17:07: POC Glucose 110 H 06/20/23 05:26: WBC 9.3, RBC 3.45 L, Hgb 9.7 L, Hct 32.1 L, MCV 93.0, MCH 28.1, MCHC 30.2 L, RDW Std Deviation 65.3 H, RDW Coeff of Alanna 18.9 H, Plt Count 560 H, MPV 9.5, Immature Gran % (Auto) 0.600, Neut % (Auto) 81.4 H, Lymph % (Auto) 12.1 L, [place] % (Auto) 4.7, Eos % (Auto) 1.0, Baso % (Auto) 0.2, Absolute Neuts (auto) 7.6, Absolute Lymphs (auto) 1.12, Nucleated RBC % 0, Differential Comment SCANNED, Hypochromasia RARE, Anisocytosis 1+, Sodium 141, Potassium 3.7, Chloride 112 H, Carbon Dioxide 21.0, Anion Gap 8, BUN 28 H, Creatinine 1.64 H, Estim Creat Clear Calc 16.06, Est GFR (MDRD) Af Amer 38 L, Est GFR (MDRD) Non-Af 32 L, BUN/Creatinine Ratio 17.1, Glucose 79, Calcium 8.7 Physical Exam Const alert and no apparent distress HEENT head/scalp atraumatic Neuro Sensorium / Orientation: awake and alert Psych affect normal Assessment & Plan Assessment/Plan (1) Hypoglycemia: PLAN: Resolved. Secondary to taking oral hypogycemics while not eating with active diarrhea and MERCEDES. received dextrose and glucagon continue to hold glimepiride and metformin (2) UTI (urinary tract infection): QUALIFIERS: Hematuria presence: without hematuria Urinary tract infection type: acute cystitis Qualified Code(s): N30.00 - Acute cystitis without hematuria PLAN: UA this admission was equivocal, however, UCx on 06/08 showed Klebsiella. expectant monitoring. Hold off on antibiotics. Urine culture performed on the 26 thus far negative. (3) MERCEDES (acute kidney injury): PLAN: likely prerenal Improving. (4) Diarrhea: PLAN: C. diff and enteric panel negative. PLAN: Plan Chronic conditions: DM2: NID. SSI. hold oral agents Severe protein calorie malnutrition Ensure supplementation ordered. Patient endorses that she gets full easily but does not get nauseated. Encouraged patient to emphasized eating more. HTN: continue amlodipine. no ARB. Patient states that she takes 200 mg of metoprolol twice daily. She has no history of any arrhythmia nor does she see a environmental services aide. I do not feel this is an ideal antihypertensive choice for her and the fact that she could be at risk for severe bradycardia arrhythmias, I strongly recommend cutting back her metoprolol dose. We will initiate her on 50 twice daily. DVT prophylaxis: Subcutaneous heparin ordered Debility: Plan is for transitional care unit. Patient will be discharged there on the . Charges/Coding Visit Charges Inpatient E&M: 46826 Subs Hosp L2
[2023-06-20] MEDS: Heparin Injection (Vial) 5,000 UNIT/ML VIAL 5000 UNIT SC ×2 (09:15→22:08)
[2023-06-20] MEDS: Pantoprazole Sodium 40 MG Tablet PO ×2 (09:16→22:05)
[2023-06-20] MEDS: Metoprolol Tartrate 100 MG Tablet 200 MG PO (10:16)
[2023-06-20 12:02] LABS: Bedside Glucose 210 mg/dL (74-106)
--- NOTE | 2023-06-20 12:42 | CASEMGMT ---
SW was informed by therapy that patient should go somewhere for rehab. Patient is Medicare observation status, however patient has a previous qualifying stay which would cover SNF stay. Per therapy, [facility] SW made a referral to [facility]. Bianca WILSON
--- NOTE | 2023-06-20 13:11 | CASEMGMT ---
[facility] can take patient Friday-. SW notified physician, patient, and her daughter Aniyah. SW explained how process works. Both were thankful for TCU. Plan: d/c to [facility] under skilled level of care. Bianca WILSON
[2023-06-20 17:30] LABS: Bedside Glucose 197 mg/dL (74-106)
[2023-06-20] MEDS: amLODIPine 10 MG Tablet PO (19:57)
[2023-06-20] MEDS: Atorvastatin Calcium 10 MG Tablet 5 MG PO (22:05)
[2023-06-20] MEDS: Metoprolol Tartrate 50 MG Tablet PO (22:06)
[2023-06-20] MEDS: Latanoprost 0.005% 1 Bottle 1 DRP EACH EYE (22:07)
[2023-06-20 22:36] LABS: Bedside Glucose 213 mg/dL (74-106)
[2023-06-21] VITALS (7 sets, daily range): BP systolic 118–149; BP diastolic 49–59; PULSE 91–100; RESP 14–18; TEMP 36.6–37.2; O2SAT 94–100
[2023-06-21] MEDS: 0.9% Normal Saline (1000mL) 1,000 ML 125 ML IV ×3 (04:17→19:49)
[2023-06-21 06:39] LABS: Bedside Glucose 105 mg/dL (74-106)
--- NOTE | 2023-06-21 08:24 | PN.HOSP_ITS ---
Reason for Visit Reason for Visit: Diagnoses Hypoglycemia, unspecified (06/19/23) Acute kidney failure, unspecified (06/19/23) Acute cystitis without hematuria (06/19/23) Diarrhea, unspecified (06/19/23) Subjective Subjective Having issues with urinary retention. Worse over the past several days, but has had less severe episodes previously. Objective Data Objective Data Vital Signs: Vital Signs Temp Pulse Resp BP Pulse Ox O2 Del Method 36.6 C 95 18 146/59 H 98 Room Air 06/21/23 05:45 06/21/23 05:45 06/21/23 05:45 06/21/23 05:45 06/21/23 07:11 06/21/23 07:11 Oxygen Delivery Method Room Air Weight: 42.1 kg Body Mass Index (BMI) 18.1 Intake & Output: Intake and Output for Last 24 Hours 06/19/23 06/20/23 06/21/23 23:59 23:59 23:59 Intake Total 2497.58 / 2497.58 3152.08 / 3152.08 1000 / 1000 Output Total 1350 / 1350 1275 / 1275 Balance 2497.58 / 2497.58 1802.08 / 1802.08 -275 / -275 Lab / Micro Data 06/20/23 05:26 06/20/23 05:26 Labs: Laboratory Results - last 24 hr 06/20/23 11:16: POC Glucose 210 H 06/20/23 16:56: POC Glucose 197 H 06/20/23 22:01: POC Glucose 213 H 06/21/23 06:22: POC Glucose 105 Micro: Microbiology 06/20/23 10:30 Stool Enteric Bacteriology - Final 06/20/23 10:30 Stool C. difficile DNA Amplification - Final 06/20/23 10:30 Stool Stool Lactoferrin - Final Physical Exam Const alert Resp normal respiratory effort, no retractions, no use of accessory muscles and clear to auscultation bilaterally Cardio regular rate, regular rhythm, S1 normal heart sound and S2 normal heart sound GI normal to inspection, nondistended, normoactive bowel sounds, soft to palpation, non-tender and non-distended Assessment & Plan Assessment/Plan (1) Hypoglycemia: PLAN: Resolved. Secondary to taking oral hypogycemics while not eating with active diarrhea and MERCEDES. received dextrose and glucagon continue to hold glimepiride and metformin (2) UTI (urinary tract infection): QUALIFIERS: Hematuria presence: without hematuria Urinary tract i nfection type: acute cystitis Qualified Code(s): N30.00 - Acute cystitis without hematuria PLAN: UA this admission was equivocal, however, UCx on 06/08 showed Klebsiella. expectant monitoring. Hold off on antibiotics. Urine culture performed on the 26 thus far negative. (3) MERCEDES (acute kidney injury): PLAN: likely prerenal Improving. (4) Diarrhea: PLAN: C. diff and enteric panel negative. Improving. (5) Urinary retention: PLAN: Straight cath QID. Patient will think about continuing straight cath v Gabriel catheter. Start ditropan Follow up urology as outpt. PLAN: Plan Chronic conditions: * DM2: NID. SSI. hold oral agents * Severe protein calorie malnutrition Ensure supplementation ordered. Patient endorses that she gets full easily but does not get nauseated. Encouraged patient to emphasized eating more. * HTN: continue amlodipine. no ARB. Patient states that she takes 200 mg of metoprolol twice daily. She has no history of any arrhythmia nor does she see a employment program representative. I do not feel this is an ideal antihypertensive choice for her and the fact that she could be at risk for severe bradycardia arrhythmias, I strongly recommend cutting back her metoprolol dose. We will initiate her on 50 twice daily. DVT prophylaxis: Subcutaneous heparin ordered Debility: Plan is for transitional care unit. Patient will be discharged there on the . Charges/Coding Visit Charges Inpatient E&M: 05771 Subs Hosp L2
[2023-06-21] MEDS: Pantoprazole Sodium 40 MG Tablet PO ×2 (08:47→21:10)
[2023-06-21] MEDS: Metoprolol Tartrate 50 MG Tablet PO ×2 (08:47→21:12)
[2023-06-21] MEDS: Heparin Injection (Vial) 5,000 UNIT/ML VIAL 5000 UNIT SC ×2 (08:48→21:10)
[2023-06-21 12:12] LABS: Bedside Glucose 199 mg/dL (74-106)
[2023-06-21] MEDS: Oxybutynin 5 MG Tablet PO ×2 (14:22→21:10)
[2023-06-21 17:31] LABS: Bedside Glucose 217 mg/dL (74-106)
--- NOTE | 2023-06-21 19:30 | NURSING ---
Bladderscanned after pt attempted to void. pt voided only 50 ml. bladder scanned for 561 ml. straight cathed for 600 ml. post cath bladderscanned for 8ml. pt tolerated well.
[2023-06-21] MEDS: Atorvastatin Calcium 10 MG Tablet 5 MG PO (21:11)
[2023-06-21] MEDS: Latanoprost 0.005% 1 Bottle 1 DRP EACH EYE (21:12)
[2023-06-21] MEDS: amLODIPine 10 MG Tablet PO (21:17)
[2023-06-21] MEDS: Insulin Lispro 100 UNIT/ML INSULN.PEN SC (21:27)
[2023-06-21 22:13] LABS: Bedside Glucose 209 mg/dL (74-106)
--- NOTE | 2023-06-22 00:17 | NURSING ---
BLADDERSCANNED PT FOR 479 ML. PT ATTEMPTED TO VOID X2, ONLY ABLE TO VOID 25ML. SENT MESSAGE TO PHYSICIAN REGARDING RETENTION. SALMERON CATHETER ORDER RECEIVED. DISCUSSED WITH PT. PT STATES SHE REALLY DOESN'T WANT A SALMERON BUT UNDERSTANDS THE NECESSITY. 16 F SALMERON PLACED. PT TOLERATED WELL WITH SOME BLADDER SPASMS THAT RESOLVED AFTER A FEW MINUTES. 550 ML DRAINED INITIALLY FROM SALMERON. STAT LOCK APPLIED. PERICARE PERFORMED.
[2023-06-22] MEDS: 0.9% Normal Saline (1000mL) 1,000 ML 125 ML IV ×2 (02:45→10:36)
[2023-06-22 03:15] VITALS: BP 123/97; PULSE 96; RESP 14; TEMP 37.1; O2SAT 93
[2023-06-22 06:48] LABS: Bedside Glucose 102 mg/dL (74-106)
--- NOTE | 2023-06-22 08:15 | PCM.PN.HOSP ---
Reason for Visit Reason for Visit: Diagnoses Hypoglycemia, unspecified (06/19/23) Acute kidney failure, unspecified (06/19/23) Acute cystitis without hematuria (06/19/23) Diarrhea, unspecified (06/19/23) Retention of urine, unspecified (06/19/23) Subjective Subjective Gabriel catheter placed last night. Eating better. Objective Data Objective Data Vital Signs: Vital Signs Temp Pulse Resp BP Pulse Ox O2 Del Method 37.1 C 96 14 123/97 H 93 Room Air 06/22/23 03:15 06/22/23 03:15 06/22/23 03:15 06/22/23 03:15 06/22/23 03:15 06/22/23 03:15 Oxygen Delivery Method Room Air Weight: 42.1 kg Body Mass Index (BMI) 18.1 Intake & Output: Intake and Output for Last 24 Hours 06/20/23 06/21/23 06/22/23 23:59 23:59 23:59 Intake Total 3152.08 / 3152.08 3711.67 / 3711.67 1106.67 / 1106.67 Output Total 1350 / 1350 2625 / 2625 1600 / 1600 Balance 1802.08 / 1802.08 1086.67 / 1086.67 -493.33 / -493.33 Lab / Micro Data 06/20/23 05:26 06/20/23 05:26 Labs: Laboratory Results - last 24 hr 06/21/23 11:54: POC Glucose 199 H 06/21/23 16:59: POC Glucose 217 H 06/21/23 21:08: POC Glucose 209 H 06/22/23 06:29: POC Glucose 102 Micro: Microbiology 06/19/23 01:55 Urine, Catheterized Urine Culture - Final Culture exhibits no growth. 06/20/23 10:30 Stool Enteric Bacteriology - Final 06/20/23 10:30 Stool C. difficile DNA Amplification - Final 06/20/23 10:30 Stool Stool Lactoferrin - Final Physical Exam Const alert and no apparent distress HEENT head/scalp atraumatic and moist oral mucous membranes Assessment & Plan Assessment/Plan (1) Hypoglycemia: PLAN: Resolved. Secondary to taking oral hypogycemics while not eating with active diarrhea and MERCEDES. received dextrose and glucagon continue to hold glimepiride and metformin (2) UTI (urinary tract infection): QUALIFIERS: Hematuria presence: without hematuria Urinary tract infection type: acute cystitis Qualified Code(s): N30.00 - Acute cystitis without hematuria PLAN: Ruled out. UCx negative UA this admission was equivocal, however, UCx on 06/08 showed Klebsiella. expectant monitoring. No antibiotics. (3) MERCEDES (acute kidney injury): PLAN: likely prerenal Improving. (4) Diarrhea: PLAN: C. diff and enteric panel negative. Resolved. Etiology unclear, but since it is resolved--no additional work up. (5) Urinary retention: PLAN: Gabriel catheter placed. Continue until follow up with . Start ditropan Follow up urology as outpt. PLAN: Plan Chronic conditions: DM2: NID. SSI. hold oral agents Severe protein calorie malnutrition Ensure supplementation ordered. Patient endorses that she gets full easily but does not get nauseated. Encouraged patient to emphasized eating more. HTN: continue amlodipine. no ARB. Patient states that she takes 200 mg of metoprolol twice daily. She has no history of any arrhythmia nor does she see a field artillery targeting technician. I do not feel this is an ideal antihypertensive choice for her and the fact that she could be at risk for severe bradycardia arrhythmias, I strongly recommend cutting back her metoprolol dose. We will initiate her on 50 twice daily. DVT prophylaxis: Subcutaneous heparin ordered Debility: Plan is for transitional care unit. Patient will be discharged there on the . SCARLET pt's dtr at bedside.
[2023-06-22 09:15] VITALS: BP 147/54; PULSE 104; RESP 18; TEMP 36.5; O2SAT 100
[2023-06-22] MEDS: Heparin Injection (Vial) 5,000 UNIT/ML VIAL 5000 UNIT SC (09:59)
[2023-06-22 10:00] VITALS: BP 147/54; PULSE 104
[2023-06-22] MEDS: Metoprolol Tartrate 50 MG Tablet PO (10:00)
[2023-06-22] MEDS: Pantoprazole Sodium 40 MG Tablet PO (10:00)
[2023-06-22] MEDS: Oxybutynin 5 MG Tablet PO (10:00)
--- NOTE | 2023-06-22 10:36 | TREXTCAR_ITS ---
Diet Diet Order/Speech Therapy: 06/19/23 09:40 Diet: Consistent Carb - Calorie Controlled Food consistency:: Regular Liquid Consistency:: Regular/Thin How many daily calories?: 1800 calorie Routine Orders/Code Status Gabriel Catheter Size: 16 Wound(s) COCCXY: Wound Type: Pressure Injury sacrum: Wound Type: combination of pressure/moisture Dressing Change: applied Mepilex dressing Therapies Weight Bearing: Full weight bearing Physical Therapy: Eval and Treat Occupational Therapy: Eval and Treat Problem/Diagnosis (1) Hypoglycemia: Status: Acute Code(s): E16.2 - Hypoglycemia, unspecified Plan: Resolved. Secondary to taking oral hypogycemics while not eating with active diarrhea and MERCEDES. received dextrose and glucagon continue to hold glimepiride and metformin (2) UTI (urinary tract infection): Status: Acute Code(s): N39.0 - Urinary tract infection, site not specified Plan: Ruled out. UCx negative UA this admission was equivocal, however, UCx on 06/08 showed Klebsiella. expectant monitoring. No antibiotics. (3) MERCEDES (acute kidney injury): Status: Acute Code(s): N17.9 - Acute kidney failure, unspecified Plan: likely prerenal Improving. (4) Diarrhea: Status: Acute Code(s): R19.7 - Diarrhea, unspecified Plan: C. diff and enteric panel negative. Resolved. Etiology unclear, but since it is resolved--no additional work up. (5) Urinary retention: Status: Acute Code(s): R33.9 - Retention of urine, unspecified Plan: Gabriel catheter placed. Continue until follow up with . Follow up urology as outpt. Plan Chronic conditions: * DM2: NID. SSI. hold oral agents * Severe protein calorie malnutrition Ensure supplementation ordered. Patient endorses that she gets full easily but does not get nauseated. Encouraged patient to emphasized eating more. * HTN: continue amlodipine. no ARB. Patient states that she takes 200 mg of metoprolol twice daily. She has no history of any arrhythmia nor does she see a sports medicine specialist. I do not feel this is an ideal antihypertensive choice for her and the fact that she could be at risk for severe bradycardia arrhythmias, I strongly recommend cutting back her metoprolol dose. We will initiate her on 50 twice daily. DVT prophylaxis: Subcutaneous heparin ordered Debility: Plan is for transitional care unit. Patient will be discharged there on the . DW pt's dtr at bedside. Allergies/Procedures Done in Hospital Allergies betaxolol [From Betoptic] Allergy (Verified 06/08/23 14:18) Itching brimonidine [From Alphagan P] Allergy (Verified 06/08/23 14:18) Itching cephalexin [From Keflex] Allergy (Verified 06/08/23 14:18) Rash nabumetone [From Relafen] Allergy (Verified 06/08/23 14:18) Rash Procedures: None Type of Care/Length of Stay Estimated LOS: Convalescent Care Less Than 30 days Type of Care Needed: Skilled Rehab Potential: Good Prognosis: Good Additional Orders/Day of Discharge Day of Discharge: 06/22/23 Dietary and Speech Recommendations Dietitian Recommendations/Changes: Continue 1800 CCD diet to manage blood sugars. RD will discontinue Ensure Clear. RD will order 118mL Ensure Compact 4x daily with medpass to provide supplemental energy Discharge Plan Admission Admit Date/Time: 06/19/23 04:54 Primary Reason for Your Visit: hypoglycemia Attending Provider: Dung Littlejohn Primary Care Provider: Claire Sharif Consulting Providers: Zachary Wilks Discharge Orders/Prescriptions Prescriptions: New metoprolol tartrate 50 mg Tablet 50 mg PO BID Qty: 0 0RF Ensure Compact Liquid 118 ml PO 4X/DAY Qty: 0 0RF insulin lispro [Humalog KwikPen Insulin] 100 unit/mL Insulin Pen See Protocol subcut ACHS Qty: 0 0RF Protocol: 1. Sliding Scale Insulin Low Dosing Condition: 150-224 mg/dl = 1 unit Condition: 225-299 mg/dl = 2 units Condition: 300-374 mg/dl = 3 units Condition: 375-499 mg/dl = 4 units Condition: Greater than 449 call physician Protocol Text: - Use for Total Daily Dose of Insulin 15-27 units - Thin, elderly, renal patients LOW DOSING ALGORITHM Continued latanoprost 1 DROP bottle 1 drp Each Eye QHS simvastatin [Zocor] 10 MG tablet 10 mg PO QHS acetaminophen 500 MG tablet 1,000 mg PO Q6H PRN (Reason: Pain Score 1-3/10) 0RF amlodipine 2.5 MG tablet 10 mg PO 1999 pantoprazole 40 mg tablet,delayed release (DR/EC) 40 mg PO BID Qty: 60 6RF sucralfate [Carafate] 1 gram tablet 1 g PO TID Qty: 150 0RF Rx Instructions: 1 gram TID for 30 days then take 1 gram BID for 30 days. Discontinued metoprolol tartrate 100 MG tablet 200 mg PO BID Patient Comments: 2 at breakfast 2 HS losartan 100 MG tablet 100 mg PO QHS glimepiride 1 MG tablet 2 mg PO DAILY@0800 metformin 500 mg tablet 1,000 mg PO BID Referrals / Follow Up: Dior Hwang MD [Med Staff - Active Staff] - Within 1 Month Claire Sharif MD [Primary Care Provider] - Within 2 Weeks Disposition Disposition (needs filled in before D/C Order can be placed): [facility] Facility (2) UTI (urinary tract infection) Qualifiers: Urinary tract infection type: acute cystitis Hematuria presence: without hematuria Qualified Code(s): N30.00 - Acute cystitis without hematuria
--- NOTE | 2023-06-22 10:44 | DS.PCM_ITS ---
Providers Date of Admission: 06/19/23 Primary Care Physician: Dr. Claire Sharif MD Consultations 06/19/23 11:32 Consult: Onc/Wound/coordinator of library services Routine Comment: Reason For Visit: HYPOGLYCEMIA, MERCEDES, UTI Diagnosis Discharge Diagnosis (1) Hypoglycemia: Status: Acute Code(s): E16.2 - Hypoglycemia, unspecified Plan: Resolved. Secondary to taking oral hypogycemics while not eating with active diarrhea and MERCEDES. received dextrose and glucagon continue to hold glimepiride and metformin (2) UTI (urinary tract infection): Status: Acute Code(s): N39.0 - Urinary tract infection, site not specified Qualifiers: Urinary tract infection type: acute cystitis Hematuria presence: without hematuria Qualified Code(s): N30.00 - Acute cystitis without hematuria Plan: Ruled out. UCx negative UA this admission was equivocal, however, UCx on 06/08 showed Klebsiella. expectant monitoring. No antibiotics. (3) MERCEDES (acute kidney injury): Status: Acute Code(s): N17.9 - Acute kidney failure, unspecified Plan: likely prerenal Improving. (4) Diarrhea: Status: Acute Code(s): R19.7 - Diarrhea, unspecified Plan: C. diff and enteric panel negative. Resolved. Etiology unclear, but since it is resolved--no additional work up. (5) Urinary retention: Status: Acute Code(s): R33.9 - Retention of urine, unspecified Plan: Gabriel catheter placed. Continue until follow up with . Follow up urology as outpt. Plan Chronic conditions: * DM2: NID. SSI. hold oral agents * Severe protein calorie malnutrition Ensure supplementation ordered. Patient endorses that she gets full easily but does not get nauseated. Encouraged patient to emphasized eating more. * HTN: continue amlodipine. no ARB. Patient states that she takes 200 mg of metoprolol twice daily. She has no history of any arrhythmia nor does she see a compensation specialist. I do not feel this is an ideal antihypertensive choice for her and the fact that she could be at risk for severe bradycardia arrhythmias, I strongly recommend cutting back her metoprolol dose. We will initiate her on 50 twice daily. DVT prophylaxis: Subcutaneous heparin ordered Debility: Plan is for transitional care unit. Patient will be discharged there on the . DW pt's dtr at bedside. Medications at Discharge Home Medications latanoprost 0.005 % eye drops 1 drp QHS Check with primary doctor 04/04/17 simvastatin 10 mg tablet (Zocor) 10 mg PO QHS Check with primary doctor 04/04/17 acetaminophen 500 mg tablet 1,000 mg (2 x 500 mg) PO Q6H PRN Pain Score 1-306/15/19 amlodipine 2.5 mg tablet 10 mg PO 2000 06/08/23 pantoprazole 40 mg tablet,delayed release 40 mg PO BID #60 tabs 06/20/23 sucralfate 1 gram tablet (Carafate) 1 g PO TID 0 days #150 tabs 06/20/23 food supplemt, lactose-reduced (Ensure Compact oral liquid) 118 ml PO 4X/DAY #0 mL 06/22/23 insulin lispro 100 unit/mL subcutaneous pen (Humalog KwikPen (U-100) Insulin) See Protocol subcut ACHS #0 mL 06/22/23 metoprolol tartrate 50 mg tablet 50 mg PO BID #0 tabs 06/22/23 Hospital Course Operations None Procedures None Summary of Care Provided Minutes Spent on Discharge: 36 Hospital Course: Pt preseents w hypoglycemia w glucose in the 30s. She was taking metformin and glimepiride. She was also having diarrhea and littler appetite. She presented w MERCEDES. Her oral hypoglycemics were held. She received D50 on multiple occassion and her glucose did improve. She received IVF and losartan was held and her MERCEDES improved. Moving forward: her losartan, metformin and glimepiride will be held. Pt was taking 200 BID of metoprolol tartrate. Though she did not have any ill effects, the dose was decreased to 50 BID. The concern was for a severe bradyarrhythmia or heart block. Pt reported that it was for hypertensive purposes. Pt also had urinary retention. Gabriel catheter needed to be placed due to severe urinary retention. Pt will need to follow up with about having it removed. Weight / BMI Weight Weight: 42.1 kg Body Mass Index (BMI) 18.1 ABG / Lab / Microbiology Data 06/20/23 05:26 06/20/23 05:26 Laboratory: Laboratory Results - last 24 hr 06/21/23 11:54: POC Glucose 199 H 06/21/23 16:59: POC Glucose 217 H 06/21/23 21:08: POC Glucose 209 H 06/22/23 06:29: POC Glucose 102 Microbiology: Microbiology 06/19/23 01:55 Urine, Catheterized Urine Culture - Final Culture exhibits no growth. 06/20/23 10:30 Stool Enteric Bacteriology - Final 06/20/23 10:30 Stool C. difficile DNA Amplification - Final 06/20/23 10:30 Stool Stool Lactoferrin - Final Meaningful Use Info Meaningful Use Diagnoses (Choose all that apply): None applicable Discharge Plan Admission Admit Date/Time: 06/19/23 04:54 Primary Reason for Your Visit: hypoglycemia Attending Provider: Dung Littlejohn Primary Care Provider: Claire Sharif Consulting Providers: Zachary Wilks Discharge Orders/Prescriptions Prescriptions: New metoprolol tartrate 50 mg Tablet 50 mg PO BID Qty: 0 0RF Ensure Compact Liquid 118 ml PO 4X/DAY Qty: 0 0RF insulin lispro [Humalog KwikPen Insulin] 100 unit/mL Insulin Pen See Protocol subcut ACHS Qty: 0 0RF Protocol: 1. Sliding Scale Insulin Low Dosing Condition: 150-224 mg/dl = 1 unit Condition: 225-299 mg/dl = 2 units Condition: 300-374 mg/dl = 3 units Condition: 375-499 mg/dl = 4 units Condition: Greater than 449 call physician Protocol Text: - Use for Total Daily Dose of Insulin 15-27 units - Thin, elderly, renal patients LOW DOSING ALGORITHM Continued latanoprost 1 DROP bottle 1 drp Each Eye QHS simvastatin [Zocor] 10 MG tablet 10 mg PO QHS acetaminophen 500 MG tablet 1,000 mg PO Q6H PRN (Reason: Pain Score 1-3/10) 0RF amlodipine 2.5 MG tablet 10 mg PO 2000 pantoprazole 40 mg tablet,delayed release (DR/EC) 40 mg PO BID Qty: 60 6RF sucralfate [Carafate] 1 gram tablet 1 g PO TID Qty: 150 0RF Rx Instructions: 1 gram TID for 30 days then take 1 gram BID for 30 days. Discontinued metoprolol tartrate 100 MG tablet 200 mg PO BID Patient Comments: 2 at breakfast 2 HS losartan 100 MG tablet 100 mg PO QHS glimepiride 1 MG tablet 2 mg PO DAILY@0800 metformin 500 mg tablet 1,000 mg PO BID Referrals / Follow Up: Dior Hwang MD [Med Staff - Active Staff] - Within 1 Month Claire Sharif MD [Primary Care Provider] - Within 2 Weeks Disposition Disposition (needs filled in before D/C Order can be placed): [facility] Charges/Coding Visit Charges Inpatient E&M: 29523 Disch Hosp >30min
[2023-06-22] MEDS: Insulin Lispro 100 UNIT/ML INSULN.PEN SC (11:40)
[2023-06-22 12:01] LABS: Bedside Glucose 158 mg/dL (74-106)
--- NOTE | 2023-06-22 14:59 | NURSING ---
Report called to nursing for pt to be d/c to TCU.
[2023-06-22 15:01] VITALS: BP 147/54; PULSE 104; RESP 18; TEMP 36.5; O2SAT 100
== END 2023-06-22 10:43 | disposition skilled nursing facility (03) ==
LOC: ED 03:28 → MS2 05:16 → PCU 18:54
PROVIDERS: Admitting Provider Hospitalist; Emergency Provider Emergency Medicine; PCP Internal Medicine
DX: E11.649 Type 2 diabetes mellitus with hypoglycemia without coma (principal); E43 Unspecified severe protein-calorie malnutrition; N17.9 Acute kidney failure, unspecified; E11.22 Type 2 diabetes mellitus with diabetic chronic kidney disease; N18.31 Chronic kidney disease, stage 3a; R33.9 Retention of urine, unspecified; R19.7 Diarrhea, unspecified; N30.00 Acute cystitis without hematuria; E78.5 Hyperlipidemia, unspecified; I12.9 Hypertensive chronic kidney disease with stage 1 through stage 4 chronic kidney disease, or unspecified chronic kidney disease; R53.81 Other malaise; Z87.891 Personal history of nicotine dependence; R53.1 Weakness; Z79.84 Long term (current) use of oral hypoglycemic drugs; Z79.899 Other long term (current) drug therapy; Z68.1 Body mass index [BMI] 19.9 or less, adult
CPT/HCPCS: 36415; 51702; 80048; 81001; 82962; 83630; 85025; 87086; 87177; 87209; 87329; 87493; 87506; 96361; 96365; 96372; 96375; 97110; 97162; 97166; 97530; 97535; 97802; 99221; 99285; J7030; J7050; P9612; A4216; G0378; J0744

== ENCOUNTER 2023-06-22 15:46 | Inpatient (IN) | payer MEDICARE, OTHER, SELFPAY ==
[2023-06-22 15:54] VITALS: BP 134/58; PULSE 94; RESP 18; TEMP 37.3; O2SAT 97; BMI 18.9
[2023-06-22 16:56] LABS: Bedside Glucose 174 mg/dL (74-106)
--- NOTE | 2023-06-22 17:13 | NURSING ---
pt noted to have moisture/yeasty area to coccyx and buttocks. removed mepilex d/t causing moisture retention. will leave [employer] and apply james and nystatin powder. turning scheduled to prevent pressure to area.
--- NOTE | 2023-06-22 17:15 | HP.PCM_ITS ---
HPI - General General Date of Admission: 06/22/23 Date of Service: 06/23/23 Chief Complaint: Here for rehabilitation. HPI Narrative 06/19/2023 VERONICA HUNT, is a 88 Female who presents to [facility] Emergency Department with hypoglycemia. EMS for weakness, hypoglycemia. [facility] 06/08/2023 thru 06/14/2023 for urosepsis, off antibiotics. Multiple episodes of diarrhea, slumped over, unresponsive. Blood sugar 38, not eating, but taking oral diabetic medications. WBC 11.3, Hemoglobin 9.9, Bicarb 20, BUN 33, Creatinine 1.89. Glucose 34, repeat glucose 125. Urinalysis consistent with urinary tract infection, urine culture sent, Cipro IV given. 06/19/2023 Admit to Hospital. Stop all oral hypoglycemic medications for hypoglycemia. Check stool studies for diarrhea. Gentle IV fluids, hold Losartan for acute kidney injury. 06/19/2023 Hypoglycemic, Dextrose given. If hypoglycemia recurs, start D5. Monitor for urinary tract infection, previous urine culture Klebsiella. IV fluids, hold Losartan for acute kidney injury. Hypoglycemia secondary to taking oral hypoglycemics with anorexia, diarrhea, acute kidney injury. Hypoglycemia resolved with holding glimepiride, hold metformin, given glucagon, dextrose. Monitor urinary tract infection. C. Diff negative, Enteric panel negative. for diarrhea. 06/21/2023 Urinary retention. Hypoglycemia resolved. 06/19/2023 urine culture negative. Acute kidney injury improving. Straight cath QID for urinary retention, f/u urology outpatient. 06/22/2023 Rojas catheter placed for urinary retention. Eating better. Diarrhea resolved, Etiology unclear. Hold oral hypoglycemic medications for hypoglycemia. 06/22/2023 Admit to TCU with debility, here for rehabilitation, strengthening, prior to discharge home with family. [facility] Medical History (Updated 06/22/23 @ 17:[address] Huseyin Verma MD) Diabetes Glaucoma Hyperlipidemia Hypertension Urinary tract infection Home Medications latanoprost 0.005 % eye drops 1 drp QHS Check with primary doctor 04/04/17 [History Last Taken Unknown] simvastatin 10 mg tablet (Zocor) 10 mg PO QHS Check with primary doctor 04/04/17 [History Last Taken 06/21/23] acetaminophen 500 mg tablet 1,000 mg (2 x 500 mg) PO Q6H PRN Pain Score 1-3/10 06/15/19 [Rx Last Taken Unknown] amlodipine 2.5 mg tablet 10 mg PO 2000 Blood Pressure 06/08/23 [History Last Taken Unknown] pantoprazole 40 mg tablet,delayed release 40 mg PO BID Acid Reflux #60 tabs 06/20/23 [Rx Last Taken 06/22/23] sucralfate 1 gram tablet (Carafate) 1 g PO TID Stomach 0 days #150 tabs 06/20/23 [Rx Last Taken Unknown] food supplemt, lactose-reduced (Ensure Active High Protein oral liquid) 120 ml PO 4X/DAY Nutritional supplement 06/22/23 [History Last Taken Unknown] insulin lispro 100 unit/mL subcutaneous pen (Humalog KwikPen (U-100) Insulin) See Protocol subcut ACHS Diabetes #0 mL 06/22/23 [Rx Last Taken 06/22/23] metoprolol tartrate 50 mg tablet 50 mg PO BID Blood Pressure #0 tabs 06/22/23 [Rx Last Taken 06/22/23] Allergy/AdvReac Type Severity Reaction Status Date / Time betaxolol [From Betoptic] Allergy Itching Verified 06/08/23 14:18 brimonidine [From Alphagan P] Allergy Itching Verified 06/08/23 14:18 cephalexin [From Keflex] Allergy Rash Verified 06/08/23 14:18 nabumetone [From Relafen] Allergy Rash Verified 06/08/23 14:18 Family History Other Diabetes Heart disease Surgical History Status post laparoscopy with lysis of adhesions Social History (Updated 06/22/23 @ 17:[address] Huseyin Verma MD) household members: family housing: house Smoking Status: Former smoker alcohol intake: never substance use type: does not use ROS Constitutional Constitutional: Denies chills, fever(s) or weight gain ENT HEENT: Denies headache(s), nasal congestion or nasal discharge Cardiovascular Cardiovascular: Denies chest pain or palpitations Respiratory/Chest Respiratory/Chest: Denies cough, excessive phlegm production or shortness of breath with exertion Gastrointestinal Gastrointestinal: Denies abdominal pain, nausea or vomiting Genitourinary Genitourinary: Reports change in urinary stream and difficulty urinating; Denies dysuria Musculoskeletal Musculoskeletal: Denies joint pain or joint swelling Integumentary Integumentary: Denies rash or wounds Neurologic Neurologic: Denies focal weakness, numbness or tingling Psychiatric Psychiatric: Denies anxiety, auditory hallucinations, depression, homicidal ideation or suicidal ideation Vital Signs Vital Signs Vital Signs: 06/22/23 15:54 06/22/23 15:54 Temperature 99.2 F H Temperature Source Oral Pulse Rate 94 Pulse Rhythm Regular Pulse Strength Normal (2+) Respiratory Rate 18 Respiratory Effort Normal Respiratory Depth Normal Respiratory Pattern Normal Blood Pressure 134/58 H Blood Pressure Mean 83 Blood Pressure Source Monitor Blood Pressure Position Semi-Fowlers Blood Pressure Location Left Arm Pulse Ox 97 Oxygen Delivery Method Room Air Room Air Weight Weight: 44.044 kg Body Mass Index (BMI) 18.9 Physical Exam Const alert General Appearance: cooperative HEENT normocephalic Eyes PERRL and EOMs intact bilaterally Neck supple, no JVD and no carotid bruits Resp normal respiratory effort, normal air movement and clear to auscultation bilaterally Cardio regular rate and regular rhythm GI normal to inspection, nondistended, normoactive bowel sounds, non-tender and non-distended Bladder / Kidney Exam: catheter in place urethral Extremity normal capillary refill General Extremity: Negative for edema Skin no rashes or lesions noted General Skin Exam: no breakdown Psych affect normal Appearance: appropriate Results Lab / Micro Data 06/23/23 05:55 06/23/23 05:55 Labs: Laboratory Results - last 24 hr 06/22/23 16:33: POC Glucose 174 H Assessment & Plan Assessment/Plan (1) Debility: (2) Hypoglycemia: (3) MERCEDES (acute kidney injury): (4) Diarrhea: (5) Urinary retention: (6) Hypertension: (7) Hyperlipidemia: (8) Glaucoma: (9) GERD (gastroesophageal reflux disease): PLAN: Plan 88 year old female with below past medical history hospitalized for hypoglycemia, acute kidney injury, diarrhea, urinary retention requiring rojas catheter, admitted to TCU with debility, here for rehabilitation, strengthening, prior to discharge home with family. * Debility - PT/OT. * Pain - Tylenol 1000mg q6 prn pain (1-10). * Bowel - senna/colace 1 tablet bid, Magnesium Citrate 300ml daily prn. * Adult immunization - Administer pneumonia vaccine, covid19 vaccine, flu vaccine as appropriate. * DVT prophylaxis - Lovenox 30mg sc daily. * Hypertension - Metoprolol 50mg bid, Amlodipine 10mg daily. * Hyperlipidemia - Atorvastatin 5mg qhs. * Nutrition - Ensure Clear 120ml 4x/day. * Glaucoma - Latanoprost 0.005% 1gtt ou qhs. * Skin irritation - Calmoseptine topcial bid. * Tinea Corporis - Miconazole topical bid. * GERD - Pantoprazole 40mg bid, Sucralfate 1gm tid. * Urinary retention - Rx Tamsulosin 0.4mg daily, voiding trials per protocol.
[2023-06-22] MEDS: Menthol/Lanolin/Calamine/Znox 113 GM Tube 1 APPLIC TOPICAL ×2 (18:24→20:19)
[2023-06-22] MEDS: Miconazole Nitrate 43 GM Bottle 1 APPLIC TOPICAL ×2 (18:25→20:20)
[2023-06-22] MEDS: Senna/Docusate Sodium 1 Tablet PO (20:17)
[2023-06-22] MEDS: Latanoprost 0.005% 1 Bottle 1 DRP EACH EYE (20:17)
[2023-06-22 20:18] VITALS: BP 144/47; PULSE 91
[2023-06-22] MEDS: amLODIPine 10 MG Tablet PO (20:18)
[2023-06-22] MEDS: Metoprolol Tartrate 50 MG Tablet PO (20:18)
[2023-06-22] MEDS: Pantoprazole Sodium 40 MG Tablet PO (20:19)
[2023-06-22] MEDS: Atorvastatin Calcium 10 MG Tablet 5 MG PO (20:19)
[2023-06-22 21:44] LABS: Bedside Glucose 173 mg/dL (74-106)
[2023-06-23 06:03] LABS: Absolute Lymphocyte Count 1.52 X10^3/uL (0.83-4.51); Basophil# 0.03 X10^3/uL; Basophil% 0.5 % (0-1); Eosinophil# 0.07 X10^3/uL; Eosinophils% 1.1 % (0-5); Hematocrit 26.9 % (37-47); Hemoglobin 8.3 g/dL (12.0-15.0); Lymphocyte # 1.52 X10^3/ul (0.83-4.51); Lymphocyte % 24.7 % (19-41); Mean Corp Hgb Conc 30.9 g/dL (32-36); Mean Corpuscular Hgb 28.6 pg (27.0-32.0); Mean Corpuscular Volume 92.8 fL (81-99); Monocyte# 0.53 X10^3/uL; Monocyte% 8.6 % (0-10); NRBC Flagged by Analyzer 0 % (0-5); Neutrophil # 3.98 X10^3/uL (2.7-7.7); Neutrophil % 64.8 % (47-70); Platelet Count 375 K/mm3 (150-450); RBC Distribution Width CV 18.5 % (11.6-14.6); White Blood Count 6.2 K/mm3 (4.4-11.0)
[2023-06-23] MEDS: Sucralfate 1 GM Tablet PO ×3 (06:33→16:31)
[2023-06-23] MEDS: Enoxaparin 30 MG/0.3 ML Syringe SC (06:33)
[2023-06-23 06:46] LABS: Bedside Glucose 115 mg/dL (74-106)
[2023-06-23 06:58] LABS: Anion Gap 4 (5-15); BUN 14 mg/dL (7-18); BUN/Creat Ratio 16.6 RATIO (10-20); Calcium,Total 7.6 mg/dL (8.5-10.1); Chloride 106 mmol/L (98-107); Creatinine, Serum 0.84 mg/dL (0.55-1.02); EST Glomerular Filtration Rate 68 mL/min (>60); Est Glom Filt Rate - Afr Amer 82 mL/min (>60); Estimated Creatinine Clearance 32.81 ml/min; Glucose 126 mg/dL (74-106); Potassium 3.2 mmol/L (3.5-5.1); Sodium Level 141 mmol/L (136-145)
--- NOTE | 2023-06-23 09:17 | PHA.CONS_ITS ---
TCU RX Drug Regimen Review Subjective/Objective Subjective/Objective: Subjective: 88 year old female with below past medical history hospitalized for hypoglycemia, acute kidney injury, diarrhea, urinary retention requiring rojas catheter, admitted to TCU with debility, here for rehabilitation, strengthening, prior to discharge home with family. Objective: Allergies betaxolol [From Betoptic] Allergy (Verified 06/08/23 14:18) Itching brimonidine [From Alphagan P] Allergy (Verified 06/08/23 14:18) Itching cephalexin [From Keflex] Allergy (Verified 06/08/23 14:18) Rash nabumetone [From Relafen] Allergy (Verified 06/08/23 14:18) Rash Current Medications Generic Name Dose Route Start Last Admin Trade Name Freq PRN Reason Stop Dose Admin Acetaminophen 1,000 mg 06/22/23 17:39 Acetaminophen 500 Mg Tablet PO Q6H PRN Pain Score 1-10 Amlodipine Besylate 10 mg 06/22/23 20:00 06/22/23 20:18 Amlodipine 10 Mg Tablet PO 10 mg 2000 COUNTS INCLUDE 234 BEDS AT THE [facility] Administration Protocol Ascorbic Acid 500 mg 06/23/23 10:00 Ascorbic Acid 500 Mg Tablet PO 1000 JERILYN Atorvastatin Calcium 5 mg 06/22/23 22:00 06/22/23 20:19 Atorvastatin Calcium 10 Mg Tablet PO 5 mg QHS JERILYN Administration Calamine/Phenol 1 applic 06/22/23 17:25 06/22/23 20:19 Menthol/Lanolin/Calamine/Znox 113 Gm Tube TOPICAL 1 applic BID COUNTS INCLUDE 234 BEDS AT THE [facility] Administration Protocol Latanoprost 1 drp 06/22/23 22:00 06/22/23 20:17 Latanoprost 0.005% 1 Bottle EACH EYE 1 drp QHS JERILYN Administration Magnesium Citrate 300 ml 06/22/23 17:38 Magnesium Citrate 300 Ml PO DAILY PRN Constipation Metoprolol Tartrate 50 mg 06/22/23 22:00 06/22/23 20:18 Metoprolol Tartrate 50 Mg Tablet PO 50 mg BID COUNTS INCLUDE 234 BEDS AT THE [facility] Administration Protocol Miconazole Nitrate 1 applic 06/22/23 17:25 06/22/23 20:20 Miconazole Nitrate 43 Gm Bottle TOPICAL 1 applic BID COUNTS INCLUDE 234 BEDS AT THE [facility] Administration Protocol Nutritional Formula (Lactose Free) 120 ml 06/22/23 22:00 06/23/23 06:31 Glucerna Shake 120 Ml Liquid PO Not Given 4X/DAY COUNTS INCLUDE 234 BEDS AT THE [facility] Pantoprazole Sodium 40 mg 06/22/23 22:00 06/22/23 20:19 Pantoprazole Sodium 40 Mg Tablet PO 40 mg BID JERILYN Administration Polysaccharide Iron Complex 150 mg 06/23/23 10:00 Iron Polysaccharide Complex 150 Mg Capsule PO DAILY COUNTS INCLUDE 234 BEDS AT THE [facility] Potassium Chloride 20 meq 06/23/23 08:00 Potassium Chloride Oral Tablet 20 Meq PO BIDCM COUNTS INCLUDE 234 BEDS AT THE [facility] Senna/Docusate Sodium 1 tablet 06/22/23 22:00 06/22/23 20:17 Senna/Docusate Sodium 1 Tablet PO 1 tablet BID JERILYN Administration Sucralfate 1 gm 06/23/23 07:00 06/23/23 06:33 Sucralfate 1 Gm Tablet PO 1 gm TID@0700,1100,1600 JERILYN Administration Tamsulosin HCl 0.4 mg 06/23/23 17:30 Tamsulosin Hcl 0.4 Mg Capsule PO DAILY@1730 JERILYN Tuberculin PPD 0.1 ml 06/30/23 10:00 Tuberculin,Purif.Prot.Deriv. 50 Tu/Ml Vial ID 06/30/23 10:01 X1 ONE Tuberculin PPD 0.1 ml 06/23/23 10:00 Tuberculin,Purif.Prot.Deriv. 50 Tu/Ml Vial ID 06/23/23 10:01 X1 ONE Problem List (Updated 06/22/23 @ 17:[address] Huseyin Verma MD) GERD (gastroesophageal reflux disease) (Acute) Glaucoma (Chronic) Hyperlipidemia (Acute) Hypertension (Chronic) Urinary retention (Acute) Diarrhea (Acute) Hypoglycemia (Acute) MERCEDES (acute kidney injury) (Acute) Debility (Acute) Vital Signs Temp Pulse Resp BP Pulse Ox O2 Del Method 99.2 F H 91 18 144/47 H 97 Room Air 06/22/23 15:54 06/22/23 20:18 06/22/23 15:54 06/22/23 20:18 06/22/23 15:54 06/22/23 15:54 Oxygen Delivery Method Room Air Weight: 44.044 kg Body Mass Index (BMI) 18.9 Sodium 141 mmol/L (136-145) 06/23/23 05:55 Potassium 3.2 mmol/L (3.5-5.1) L 06/23/23 05:55 Chloride 106 mmol/L (98-107) 06/23/23 05:55 Carbon Dioxide 31.0 mmol/L (21.0-32.0) 06/23/23 05:55 Anion Gap 4 (5-15) L 06/23/23 05:55 BUN 14 mg/dL (7-18) 06/23/23 05:55 Creatinine 0.84 mg/dL (0.55-1.02) 06/23/23 05:55 Est GFR (MDRD) Af Amer 82 mL/min (>60) 06/23/23 05:55 Est GFR (MDRD) Non-Af 68 mL/min (>60) 06/23/23 05:55 BUN/Creatinine Ratio 16.6 RATIO (10-20) 06/23/23 05:55 Glucose 126 mg/dL (74-106) H 06/23/23 05:55 Assessment/Plan: 1. Pain: acetaminophen 1000 mg PO Q6H PRN pain (1-10). The patient has not used any PRN pain medications so far this admission. Please continue to monitor for p ain control, PRN medication usage, and LFTs (AST/ALT = 19/14 U/L on 06/08/23). 2. Bowel: senna/docusate 1 tablet PO BID, magnesium citrate 300 mL PO daily PRN constipation. The patient has not used any PRN doses of magnesium citrate so far this admission, and her last documented bowel movement was on 06/12/23. Please continue to monitor for PRN medication usage, diarrhea and constipation. Please consider administering magnesium citrate PRN as the patient does not have a documented bowel movement for ~11 days. 3. Hypertension: metoprolol tartrate 50 mg PO BID, amlodipine 10 mg PO daily. Please continue to monitor blood pressures (recent range = 118-159/47-97 mmHg), heart rates (recent range = 90-108 beats/min), for fatigue, and lower extremity edema. The patient's blood pressures have remained mostly consistently elevated during this admission. Please consider changing metoprolol tartrate 50 mg PO BID to carvedilol 6.25 mg PO BID and up-titrating to control the patient's blood pressure as the mixed beta and alpha blockade from carvedilol should help reduce that patient's blood pressure more than metoprolol tartrate. 4. Hyperlipidemia: atorvastatin 5 mg PO QHS. Please continue to monitor lipid levels (no recent lipid levels documented), LFTs (AST/ALT = 19/14 U/L on 06/08/23), and for myopathies. Please consider ordering a lipid level if clinically indicated as the patient does not have a recent set of levels documented. 5. GERD: pantoprazole 40 mg PO BID, sucralfate 1 gram PO TID. Please continue to monitor for s/s of GERD, for diarrhea that could indicate clostridium difficile infection, for s/s of bone resorption such as fractures, and for constipation. 6. Glaucoma: latanoprost 0.005% 1 drop in each eye QHS. Please continue to monitor vision, for eye discharge, eye pain, eye stinging, and increased eye wateriness. 7. Urinary retention: tamsulosin 0.4 mg PO daily. Please continue to monitor for urinary retention, urinary stream, for s/s of orthostasis, and blood pressures (recent range = 118-159/47-97 mmHg). 8. Hypokalemia: potassium chloride 20 mEq PO BID with meals. Please continue to monitor potassium levels (K = 3.2 mmol/L on 06/23/23), and for GI distress with potassium administration. If GI distress occurs with potassium administration ensure that potassium is given with food. 9. Iron deficiency anemia: iron polysaccharide 150 mg PO daily, ascorbic acid 1000 mg PO daily. Please continue to monitor hemoglobin levels (Hgb = 8.3 g/dL on 06/23/23), iron levels (iron = 10 ug/dL on 06/08/23), for constipation, and for renal stones. 10. Nutrition: ensure clear shake 120 mL PO 4 times daily. Please continue to monitor nutritional status. 11. Skin irritation/tinea corporis: calmosetpine 1 application topically BID, miconazole 1 application topically BID. Please continue to monitor for tinea corporis resolution, and for skin irritation/integrity. Assessment/Plan for indications treated with psychotropic medications: NA Medical chart and medication regimen reviewed. The following medication irregularities or issues were identified: 1. Bowel: senna/docusate 1 tablet PO BID, magnesium citrate 300 mL PO daily PRN constipation. Please consider administering magnesium citrate PRN as the patient does not have a documented bowel movement for ~11 days. 2. Hypertension: metoprolol tartrate 50 mg PO BID, amlodipine 10 mg PO daily. Please consider changing metoprolol tartrate 50 mg PO BID to carvedilol 6.25 mg PO BID and up-titrating to control the patient's blood pressure as the mixed b eta and alpha blockade from carvedilol should help reduce that patient's blood pressure more than metoprolol tartrate. 3. Hyperlipidemia: atorvastatin 5 mg PO QHS. Please consider ordering a lipid level if clinically indicated as the patient does not have a recent set of levels documented. Date Date of Note:: 06/23/23
[2023-06-23 10:34] VITALS: PULSE 88
[2023-06-23] MEDS: Metoprolol Tartrate 50 MG Tablet PO ×2 (10:34→23:33)
[2023-06-23] MEDS: Senna/Docusate Sodium 1 Tablet PO ×2 (10:34→23:44)
[2023-06-23] MEDS: Pantoprazole Sodium 40 MG Tablet PO ×2 (10:34→23:20)
[2023-06-23] MEDS: Potassium Chloride Oral Tablet 20 MEQ PO ×2 (10:36→16:31)
[2023-06-23] MEDS: Ascorbic Acid 500 MG Tablet PO (10:36)
[2023-06-23] MEDS: Iron Polysaccharide Complex 150 MG CAPSULE PO (10:36)
[2023-06-23] MEDS: Menthol/Lanolin/Calamine/Znox 113 GM Tube 1 APPLIC TOPICAL ×2 (10:37→23:30)
[2023-06-23] MEDS: Miconazole Nitrate 43 GM Bottle 1 APPLIC TOPICAL ×2 (10:37→23:27)
[2023-06-23] MEDS: Tuberculin,Purif.prot.deriv. 50 TU/ML Vial 0.1 ML ID (10:47)
[2023-06-23 11:10] LABS: Bedside Glucose 218 mg/dL (74-106)
--- NOTE | 2023-06-23 12:02 | NURSING ---
Offered covid vaccine, education about vaccine provided. Patient refuses at this time.
[2023-06-23] MEDS: Glucerna Shake 120 ML LIQUID PO ×2 (12:40→16:31)
[2023-06-23 14:24] VITALS: BP 123/47; PULSE 91; RESP 18; TEMP 36.2; O2SAT 97
--- NOTE | 2023-06-23 14:38 | NURSING ---
Industrial Engineering Director Note; Activity Asset: Irina Foster is independent in her choice of daily activities. When not visiting with family, friends or medicare biller she prefers to watch tv or rest. He daughter lives with her and will bring her word search books from home. 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 Staff will remind her of daily activities and respect her right to say no.
[2023-06-23] MEDS: Tamsulosin HCl 0.4 MG Capsule PO (16:32)
[2023-06-23 17:45] LABS: Bedside Glucose 161 mg/dL (74-106)
[2023-06-23 21:13] LABS: Bedside Glucose 153 mg/dL (74-106)
[2023-06-23] MEDS: Latanoprost 0.005% 1 Bottle 1 DRP EACH EYE (23:20)
[2023-06-23] MEDS: Atorvastatin Calcium 10 MG Tablet 5 MG PO (23:20)
[2023-06-23] MEDS: amLODIPine 10 MG Tablet PO (23:26)
[2023-06-23 23:33] VITALS: BP 131/49; PULSE 90
[2023-06-24] MEDS: Sucralfate 1 GM Tablet PO ×3 (06:03→16:58)
[2023-06-24 06:42] LABS: Bedside Glucose 140 mg/dL (74-106)
[2023-06-24] MEDS: Potassium Chloride Oral Tablet 20 MEQ PO ×2 (10:05→16:58)
[2023-06-24] MEDS: Miconazole Nitrate 43 GM Bottle 1 APPLIC TOPICAL ×2 (10:05→20:53)
[2023-06-24] MEDS: Menthol/Lanolin/Calamine/Znox 113 GM Tube 1 APPLIC TOPICAL ×2 (10:05→20:54)
[2023-06-24] MEDS: Iron Polysaccharide Complex 150 MG CAPSULE PO (10:06)
[2023-06-24 10:08] VITALS: BP 125/55; PULSE 102
[2023-06-24] MEDS: Pantoprazole Sodium 40 MG Tablet PO ×2 (10:08→20:51)
[2023-06-24] MEDS: Metoprolol Tartrate 50 MG Tablet PO ×2 (10:08→20:52)
[2023-06-24] MEDS: Ascorbic Acid 500 MG Tablet PO (10:09)
[2023-06-24 11:27] LABS: Bedside Glucose 213 mg/dL (74-106)
[2023-06-24 11:39] VITALS: BP 125/44; PULSE 102; RESP 18; TEMP 37; O2SAT 94
[2023-06-24 12:43] VITALS: BMI 18.8
[2023-06-24] MEDS: Glucerna Shake 120 ML LIQUID PO ×3 (13:21→20:52)
--- NOTE | 2023-06-24 15:22 | CASEMGMT ---
Social Work Met with patient to complete initial assessment. Introduced self and role. Verified contacts. Pt wishes to be DNR-CCA, no intubation. Nursing notified. SW requested to pt for dtr to bring in copies of advanced directives. Educated to Medicare benefit and copay coverage. Pt's goal is to return home with dtr at [facility]. SW will continue to follow for DC planning. ANTONETTE RickettsW
[2023-06-24 16:27] LABS: Bedside Glucose 142 mg/dL (74-106)
[2023-06-24] MEDS: Tamsulosin HCl 0.4 MG Capsule PO (16:59)
[2023-06-24 20:48] VITALS: BP 137/47; PULSE 100; RESP 17; TEMP 36.7; O2SAT 95
[2023-06-24] MEDS: Atorvastatin Calcium 10 MG Tablet 5 MG PO (20:51)
[2023-06-24 20:52] VITALS: BP 137/47; PULSE 100
[2023-06-24] MEDS: Latanoprost 0.005% 1 Bottle 1 DRP EACH EYE (20:52)
[2023-06-24] MEDS: amLODIPine 10 MG Tablet PO (20:53)
[2023-06-24 21:37] LABS: Bedside Glucose 239 mg/dL (74-106)
[2023-06-25] MEDS: Glucerna Shake 120 ML LIQUID PO ×4 (05:04→20:53)
[2023-06-25 06:17] LABS: Anion Gap 4 (5-15); BUN 19 mg/dL (7-18); BUN/Creat Ratio 21.1 RATIO (10-20); Calcium,Total 8.1 mg/dL (8.5-10.1); Chloride 105 mmol/L (98-107); EST Glomerular Filtration Rate 63 mL/min (>60); Est Glom Filt Rate - Afr Amer 76 mL/min (>60); Estimated Creatinine Clearance 30.18 ml/min; Glucose 140 mg/dL (74-106); Sodium Level 138 mmol/L (136-145)
[2023-06-25 06:29] LABS: Bedside Glucose 139 mg/dL (74-106)
[2023-06-25] MEDS: Sucralfate 1 GM Tablet PO ×3 (07:05→16:29)
[2023-06-25] MEDS: Potassium Chloride Oral Tablet 20 MEQ PO ×2 (09:29→16:30)
[2023-06-25] MEDS: Miconazole Nitrate 43 GM Bottle 1 APPLIC TOPICAL ×2 (09:29→20:48)
[2023-06-25 09:30] VITALS: BP 121/71; PULSE 88
[2023-06-25] MEDS: Iron Polysaccharide Complex 150 MG CAPSULE PO (09:30)
[2023-06-25] MEDS: Metoprolol Tartrate 50 MG Tablet PO ×2 (09:30→20:49)
[2023-06-25] MEDS: Ascorbic Acid 500 MG Tablet PO (09:31)
[2023-06-25] MEDS: Pantoprazole Sodium 40 MG Tablet PO ×2 (09:31→20:50)
[2023-06-25] MEDS: Menthol/Lanolin/Calamine/Znox 113 GM Tube 1 APPLIC TOPICAL ×2 (09:32→20:48)
[2023-06-25 09:37] VITALS: BP 121/71; PULSE 88
--- NOTE | 2023-06-25 09:44 | CASEMGMT ---
Social Work IDT met with patient and dtr for care plan meeting. Discussed patient's progress in PT/OT/SN. Educated to Medicare benefit and copay coverage. Pt's goal is to return home with dtr. Pt has new rojas and voiding trails will determine need for rojas at DC. Requested dtr provide copies of advanced directives. Pt would like to have HHC services through [facility] at [place]. SW will continue to follow for DC planning. ANTONETTE RickettsW
[2023-06-25 11:24] LABS: Bedside Glucose 218 mg/dL (74-106)
--- NOTE | 2023-06-25 14:16 | CHAPLAIN ---
Type of Pastoral Visit ___ Initial Visit _x__ Follow-up Visit ___ On-call Visit ___ General Patient Visit ___ Spiritual Assessment ___ Family Conference ___ Bereavement ___ Rapid Response ___ Code Blue ___ Other (describe below) Pastoral Care Referral From _x__ Patient ___ Family ___ Nurse ___ Physician ___ Pool Lifeguard ___ Chair Mechanic ___ Other (describe below) Sacrament/Intervention _x__ Active listening ___ Anointing ___ Rastafarian ___ Bereavement ___ Communion ___ Sola exploration ___ ___ Life review _x__ Prayer ___ Reconciliation ___ Sacrament of Sick _x__ Supportive presence ___ Wedding ___ Other (describe below) Pastoral Comments follow up to this patient who has been seen recently in [facility] and [facility]; pt is happy with her progress and situation; pt still wants to get home soon but is thankful for all that is being done and the progress made so far; pt welcomes prayers and visits from this board certified behavioral analyst
[2023-06-25 14:32] VITALS: BP 107/43; PULSE 90; RESP 16; TEMP 37.1; O2SAT 97
[2023-06-25] MEDS: Tamsulosin HCl 0.4 MG Capsule PO (16:31)
[2023-06-25 16:53] LABS: Bedside Glucose 227 mg/dL (74-106)
[2023-06-25 20:49] VITALS: BP 123/45; PULSE 97
[2023-06-25] MEDS: Atorvastatin Calcium 10 MG Tablet 5 MG PO (20:49)
[2023-06-25] MEDS: amLODIPine 10 MG Tablet PO (20:49)
[2023-06-25] MEDS: Latanoprost 0.005% 1 Bottle 1 DRP EACH EYE (20:50)
[2023-06-25 20:58] VITALS: PULSE 97; RESP 16; O2SAT 96; O2SAT 97
[2023-06-25 21:26] LABS: Bedside Glucose 163 mg/dL (74-106)
[2023-06-26] MEDS: Glucerna Shake 120 ML LIQUID PO ×3 (06:00→16:13)
[2023-06-26] MEDS: Sucralfate 1 GM Tablet PO ×3 (06:00→16:13)
[2023-06-26 06:03] VITALS: PULSE 100; RESP 16; O2SAT 98
[2023-06-26 06:23] LABS: Bedside Glucose 160 mg/dL (74-106)
[2023-06-26 07:57] VITALS: BP 127/43; PULSE 109
[2023-06-26] MEDS: Potassium Chloride Oral Tablet 20 MEQ PO ×2 (07:57→16:13)
[2023-06-26] MEDS: Pantoprazole Sodium 40 MG Tablet PO ×2 (07:57→20:09)
[2023-06-26] MEDS: Metoprolol Tartrate 50 MG Tablet PO ×2 (07:57→20:09)
[2023-06-26] MEDS: Iron Polysaccharide Complex 150 MG CAPSULE PO (07:57)
[2023-06-26] MEDS: Miconazole Nitrate 43 GM Bottle 1 APPLIC TOPICAL ×2 (07:58→20:08)
[2023-06-26] MEDS: Ascorbic Acid 500 MG Tablet PO (07:58)
[2023-06-26] MEDS: Menthol/Lanolin/Calamine/Znox 113 GM Tube 1 APPLIC TOPICAL ×2 (07:59→20:08)
[2023-06-26 11:16] LABS: Bedside Glucose 184 mg/dL (74-106)
--- NOTE | 2023-06-26 11:58 | NURSING ---
Dr. Hwang office called she is out of the office until 06/30/23. Will update Dr. Verma.
[2023-06-26 15:04] VITALS: BP 118/37; PULSE 88; RESP 16; TEMP 36.6; O2SAT 98
[2023-06-26] MEDS: Tamsulosin HCl 0.4 MG Capsule PO (16:13)
[2023-06-26 16:54] LABS: Bedside Glucose 138 mg/dL (74-106)
[2023-06-26 20:09] VITALS: BP 141/50; PULSE 100
[2023-06-26] MEDS: amLODIPine 10 MG Tablet PO (20:09)
[2023-06-26] MEDS: Atorvastatin Calcium 10 MG Tablet 5 MG PO (20:09)
[2023-06-26] MEDS: Latanoprost 0.005% 1 Bottle 1 DRP EACH EYE (20:10)
[2023-06-26 21:11] LABS: Bedside Glucose 182 mg/dL (74-106)
[2023-06-27] MEDS: Glucerna Shake 120 ML LIQUID PO ×4 (06:29→21:24)
[2023-06-27] MEDS: Sucralfate 1 GM Tablet PO ×3 (06:29→16:25)
[2023-06-27 06:40] LABS: Bedside Glucose 174 mg/dL (74-106)
[2023-06-27 10:00] VITALS: PULSE 86; RESP 16; O2SAT 98
[2023-06-27] MEDS: Potassium Chloride Oral Tablet 20 MEQ PO ×2 (10:01→17:16)
[2023-06-27] MEDS: Iron Polysaccharide Complex 150 MG CAPSULE PO (10:01)
[2023-06-27 10:02] VITALS: PULSE 82
[2023-06-27] MEDS: Ascorbic Acid 500 MG Tablet PO (10:02)
[2023-06-27] MEDS: Pantoprazole Sodium 40 MG Tablet PO ×2 (10:02→21:18)
[2023-06-27] MEDS: Metoprolol Tartrate 50 MG Tablet PO ×2 (10:02→21:17)
[2023-06-27] MEDS: Miconazole Nitrate 43 GM Bottle 1 APPLIC TOPICAL ×2 (11:10→21:16)
[2023-06-27 11:39] LABS: Bedside Glucose 204 mg/dL (74-106)
--- NOTE | 2023-06-27 12:11 | CASEMGMT ---
Social Work BIMS () and PHQ-2 () completed for MDS assessment. Karina Alcocer MSW WIRE RIGGER
--- NOTE | 2023-06-27 12:40 | MDS.RN ---
Pain interview for mds completed.
[2023-06-27 15:28] VITALS: BP 121/33; PULSE 90; RESP 16; TEMP 36.6; O2SAT 97
[2023-06-27 16:32] LABS: Bedside Glucose 159 mg/dL (74-106)
[2023-06-27] MEDS: Tamsulosin HCl 0.4 MG Capsule PO (17:16)
--- NOTE | 2023-06-27 18:47 | NURSING ---
Removed old mepilex due to soiling, washed area on coccyx with soap and water, rinsed well. Patted dry. Applied new mepilex on 3. Pt tolerated well. Small white area with pink blanchable skin around area noted. No drainage. Pt tolerated dressing change well.
[2023-06-27 21:15] VITALS: BP 134/44; PULSE 98; RESP 16
[2023-06-27] MEDS: Latanoprost 0.005% 1 Bottle 1 DRP EACH EYE (21:15)
[2023-06-27] MEDS: Menthol/Lanolin/Calamine/Znox 113 GM Tube 1 APPLIC TOPICAL (21:16)
[2023-06-27] MEDS: Atorvastatin Calcium 10 MG Tablet 5 MG PO (21:16)
[2023-06-27 21:17] VITALS: BP 134/44; PULSE 98
[2023-06-27] MEDS: amLODIPine 10 MG Tablet PO (21:18)
[2023-06-27 22:43] LABS: Bedside Glucose 173 mg/dL (74-106)
[2023-06-28] MEDS: Glucerna Shake 120 ML LIQUID PO ×3 (06:29→16:43)
[2023-06-28] MEDS: Sucralfate 1 GM Tablet PO ×3 (06:38→16:43)
[2023-06-28 06:42] VITALS: PULSE 97; RESP 14; O2SAT 98
[2023-06-28 06:58] LABS: Bedside Glucose 166 mg/dL (74-106)
[2023-06-28 09:13] VITALS: BP 112/39; PULSE 102
[2023-06-28] MEDS: Metoprolol Tartrate 50 MG Tablet PO ×2 (09:13→20:03)
[2023-06-28] MEDS: Potassium Chloride Oral Tablet 20 MEQ PO ×2 (09:13→16:42)
[2023-06-28] MEDS: Ascorbic Acid 500 MG Tablet PO (09:13)
[2023-06-28] MEDS: Pantoprazole Sodium 40 MG Tablet PO ×2 (09:13→20:04)
[2023-06-28] MEDS: Iron Polysaccharide Complex 150 MG CAPSULE PO (09:13)
[2023-06-28] MEDS: Miconazole Nitrate 43 GM Bottle 1 APPLIC TOPICAL ×2 (09:14→19:55)
[2023-06-28] MEDS: Menthol/Lanolin/Calamine/Znox 113 GM Tube 1 APPLIC TOPICAL ×2 (09:14→19:56)
[2023-06-28 11:37] LABS: Bedside Glucose 232 mg/dL (74-106)
[2023-06-28 14:38] VITALS: BP 118/46; PULSE 84; RESP 16; TEMP 36.4; O2SAT 96
[2023-06-28] MEDS: Tamsulosin HCl 0.4 MG Capsule PO (16:43)
[2023-06-28] MEDS: Latanoprost 0.005% 1 Bottle 1 DRP EACH EYE (19:57)
[2023-06-28] MEDS: Atorvastatin Calcium 10 MG Tablet 5 MG PO (19:58)
[2023-06-28 20:03] VITALS: BP 115/42; PULSE 91
[2023-06-28] MEDS: amLODIPine 10 MG Tablet PO (20:04)
--- NOTE | 2023-06-28 20:36 | NURSING ---
Pt requested all hs meds in the 1999 hour this evening.
[2023-06-29 06:35] LABS: Bedside Glucose 150 mg/dL (74-106)
[2023-06-29] MEDS: Sucralfate 1 GM Tablet PO ×3 (06:47→16:27)
[2023-06-29] MEDS: Potassium Chloride Oral Tablet 20 MEQ PO ×2 (08:42→16:27)
[2023-06-29 08:43] VITALS: BP 117/41; PULSE 104
[2023-06-29] MEDS: Iron Polysaccharide Complex 150 MG CAPSULE PO (08:43)
[2023-06-29] MEDS: Ascorbic Acid 500 MG Tablet PO (08:43)
[2023-06-29] MEDS: Metoprolol Tartrate 50 MG Tablet PO ×2 (08:43→22:42)
[2023-06-29] MEDS: Pantoprazole Sodium 40 MG Tablet PO ×2 (08:43→22:43)
[2023-06-29] MEDS: Menthol/Lanolin/Calamine/Znox 113 GM Tube 1 APPLIC TOPICAL ×2 (08:44→22:42)
[2023-06-29] MEDS: Miconazole Nitrate 43 GM Bottle 1 APPLIC TOPICAL ×2 (08:44→22:42)
[2023-06-29] MEDS: Glucerna Shake 120 ML LIQUID PO ×2 (11:00→16:27)
[2023-06-29 14:53] VITALS: BP 129/45; PULSE 92; RESP 16; TEMP 37; O2SAT 98
[2023-06-29] MEDS: Tamsulosin HCl 0.4 MG Capsule PO (16:27)
[2023-06-29 22:42] VITALS: BP 125/49; PULSE 95
[2023-06-29] MEDS: Atorvastatin Calcium 10 MG Tablet 5 MG PO (22:45)
[2023-06-29] MEDS: amLODIPine 10 MG Tablet PO (22:46)
[2023-06-29] MEDS: Latanoprost 0.005% 1 Bottle 1 DRP EACH EYE (22:47)
[2023-06-30 05:48] LABS: Absolute Lymphocyte Count 1.65 X10^3/uL (0.83-4.51); Absolute Neutrophil Count 4.9 X10^3/uL (2.0-7.7); Basophil# 0.04 X10^3/uL; Basophil% 0.5 % (0-1); Eosinophil# 0.16 X10^3/uL; Eosinophils% 2.2 % (0-5); Hematocrit 27.4 % (37-47); Hemoglobin 8.1 g/dL (12.0-15.0); Lymphocyte # 1.65 X10^3/ul (0.83-4.51); Lymphocyte % 22.4 % (19-41); Mean Corp Hgb Conc 29.6 g/dL (32-36); Mean Corpuscular Hgb 28.8 pg (27.0-32.0); Mean Corpuscular Volume 97.5 fL (81-99); Mean Platelet Vol. 9.4 fl (6.2-12.0); Monocyte# 0.63 X10^3/uL; Monocyte% 8.5 % (0-10); NRBC Flagged by Analyzer 0 % (0-5); Neutrophil # 4.87 X10^3/uL (2.7-7.7); Neutrophil % 66.1 % (47-70); POSITIVE MORPHOLOGY YES; Platelet Count 353 K/mm3 (150-450); RBC Distribution Width CV 18.5 % (11.6-14.6); RBC Distribution Width SD 67.7 fl (35.1-43.9); Red Blood Count 2.81 M/mm3 (4.2-5.4); White Blood Count 7.4 K/mm3 (4.4-11.0)
[2023-06-30 06:11] LABS: Differential Indicated SCAN CRITERIA MET
[2023-06-30] MEDS: Glucerna Shake 120 ML LIQUID PO ×4 (06:15→21:02)
[2023-06-30 06:41] LABS: Anion Gap 5 (5-15); BUN 33 mg/dL (7-18); BUN/Creat Ratio 26.6 RATIO (10-20); Calcium,Total 9.1 mg/dL (8.5-10.1); Chloride 105 mmol/L (98-107); Creatinine, Serum 1.24 mg/dL (0.55-1.02); EST Glomerular Filtration Rate 44 mL/min (>60); Est Glom Filt Rate - Afr Amer 53 mL/min (>60); Glucose 174 mg/dL (74-106); Potassium 5.3 mmol/L (3.5-5.1); Sodium Level 135 mmol/L (136-145)
[2023-06-30 06:42] LABS: Bedside Glucose 155 mg/dL (74-106)
[2023-06-30 06:46] LABS: Anisocytosis 2+
[2023-06-30] MEDS: Sucralfate 1 GM Tablet PO ×3 (07:09→17:21)
--- NOTE | 2023-06-30 08:59 | NURSING ---
Glove Finisher Note; MDS for 06/29/2023 Complete
[2023-06-30] MEDS: Menthol/Lanolin/Calamine/Znox 113 GM Tube 1 APPLIC TOPICAL ×2 (09:41→21:02)
[2023-06-30] MEDS: Potassium Chloride Oral Tablet 20 MEQ PO ×2 (09:41→17:22)
[2023-06-30 09:42] VITALS: PULSE 95
[2023-06-30] MEDS: Pantoprazole Sodium 40 MG Tablet PO ×2 (09:42→21:02)
[2023-06-30] MEDS: Iron Polysaccharide Complex 150 MG CAPSULE PO (09:42)
[2023-06-30] MEDS: Metoprolol Tartrate 50 MG Tablet PO ×2 (09:42→21:03)
[2023-06-30] MEDS: Miconazole Nitrate 43 GM Bottle 1 APPLIC TOPICAL ×2 (09:42→21:02)
[2023-06-30] MEDS: Senna/Docusate Sodium 1 Tablet PO (09:43)
[2023-06-30] MEDS: Ascorbic Acid 500 MG Tablet PO (09:43)
[2023-06-30] MEDS: Tuberculin,Purif.prot.deriv. 50 TU/ML Vial 0.1 ML ID (12:33)
[2023-06-30 14:11] VITALS: BP 110/52; PULSE 91; RESP 19; TEMP 36.2; O2SAT 97
[2023-06-30] MEDS: Tamsulosin HCl 0.4 MG Capsule PO (17:21)
[2023-06-30 20:51] VITALS: BP 131/59; PULSE 96; RESP 16
[2023-06-30] MEDS: Latanoprost 0.005% 1 Bottle 1 DRP EACH EYE (21:01)
[2023-06-30] MEDS: amLODIPine 10 MG Tablet PO (21:02)
[2023-06-30 21:03] VITALS: BP 131/59; PULSE 98
[2023-06-30] MEDS: Atorvastatin Calcium 10 MG Tablet 5 MG PO (21:03)
[2023-07-01] MEDS: Sucralfate 1 GM Tablet PO ×3 (06:00→16:39)
[2023-07-01 06:03] VITALS: PULSE 96; RESP 16; O2SAT 98
[2023-07-01 06:43] LABS: Bedside Glucose 198 mg/dL (74-106)
--- NOTE | 2023-07-01 09:11 | MDS.RN ---
Information for the mds was obtained from review of the clinical record, interview of resident, staff, and direct observation of resident's care.
[2023-07-01] MEDS: Iron Polysaccharide Complex 150 MG CAPSULE PO (09:54)
[2023-07-01] MEDS: Potassium Chloride Oral Tablet 20 MEQ PO ×2 (09:54→16:43)
[2023-07-01] MEDS: Senna/Docusate Sodium 1 Tablet PO ×2 (09:57→20:50)
[2023-07-01] MEDS: Ascorbic Acid 500 MG Tablet PO (09:57)
[2023-07-01] MEDS: Pantoprazole Sodium 40 MG Tablet PO ×2 (09:57→20:50)
[2023-07-01 09:58] VITALS: BP 113/45; PULSE 103
[2023-07-01] MEDS: Menthol/Lanolin/Calamine/Znox 113 GM Tube 1 APPLIC TOPICAL ×2 (09:58→20:51)
[2023-07-01] MEDS: Metoprolol Tartrate 50 MG Tablet PO ×2 (09:58→20:50)
[2023-07-01] MEDS: Miconazole Nitrate 43 GM Bottle 1 APPLIC TOPICAL ×2 (09:59→20:53)
[2023-07-01 10:15] VITALS: BMI 18.6
[2023-07-01] MEDS: Glucerna Shake 120 ML LIQUID PO ×3 (12:35→20:51)
[2023-07-01 12:44] VITALS: BP 111/38; PULSE 91; RESP 18; TEMP 36.1; O2SAT 99
[2023-07-01] MEDS: Tamsulosin HCl 0.4 MG Capsule PO (16:43)
[2023-07-01] MEDS: Latanoprost 0.005% 1 Bottle 1 DRP EACH EYE (20:49)
[2023-07-01 20:50] VITALS: BP 128/46; PULSE 94
[2023-07-01] MEDS: Atorvastatin Calcium 10 MG Tablet 5 MG PO (20:50)
[2023-07-01] MEDS: amLODIPine 10 MG Tablet PO (20:50)
[2023-07-02] MEDS: Glucerna Shake 120 ML LIQUID PO ×3 (06:00→22:29)
[2023-07-02] MEDS: Sucralfate 1 GM Tablet PO ×3 (06:00→17:05)
[2023-07-02 06:35] LABS: Bedside Glucose 173 mg/dL (74-106)
[2023-07-02 09:21] LABS: Absolute Lymphocyte Count 1.89 X10^3/uL (0.83-4.51); Absolute Neutrophil Count 5.7 X10^3/uL (2.0-7.7); Basophil# 0.03 X10^3/uL; Basophil% 0.4 % (0-1); Eosinophil# 0.17 X10^3/uL; Hematocrit 28.8 % (37-47); Hemoglobin 8.4 g/dL (12.0-15.0); Lymphocyte # 1.89 X10^3/ul (0.83-4.51); Lymphocyte % 22.2 % (19-41); Mean Corp Hgb Conc 29.2 g/dL (32-36); Mean Corpuscular Hgb 28.8 pg (27.0-32.0); Mean Corpuscular Volume 98.6 fL (81-99); Mean Platelet Vol. 9.8 fl (6.2-12.0); Monocyte# 0.66 X10^3/uL; Monocyte% 7.8 % (0-10); NRBC Flagged by Analyzer 0 % (0-5); Neutrophil # 5.72 X10^3/uL (2.7-7.7); Neutrophil % 67.2 % (47-70); POSITIVE MORPHOLOGY YES; Platelet Count 348 K/mm3 (150-450); RBC Distribution Width CV 18.2 % (11.6-14.6); RBC Distribution Width SD 65.6 fl (35.1-43.9); Red Blood Count 2.92 M/mm3 (4.2-5.4); White Blood Count 8.5 K/mm3 (4.4-11.0)
[2023-07-02 09:23] LABS: Differential Indicated SCAN CRITERIA MET
[2023-07-02 09:31] LABS: Anion Gap 3 (5-15); BUN 33 mg/dL (7-18); BUN/Creat Ratio 26.8 RATIO (10-20); Calcium,Total 9.4 mg/dL (8.5-10.1); Chloride 106 mmol/L (98-107); Creatinine, Serum 1.23 mg/dL (0.55-1.02); EST Glomerular Filtration Rate 44 mL/min (>60); Est Glom Filt Rate - Afr Amer 53 mL/min (>60); Estimated Creatinine Clearance 21.99 ml/min; Glucose 289 mg/dL (74-106); Potassium 5.4 mmol/L (3.5-5.1); Sodium Level 133 mmol/L (136-145)
[2023-07-02] MEDS: Sodium Polystyrene Sulfonate 15 GM/60 ML UDC PO (09:34)
[2023-07-02] MEDS: Menthol/Lanolin/Calamine/Znox 113 GM Tube 1 APPLIC TOPICAL ×2 (09:35→22:39)
[2023-07-02] MEDS: Miconazole Nitrate 43 GM Bottle 1 APPLIC TOPICAL ×3 (09:35→22:38)
[2023-07-02 09:39] LABS: Anisocytosis 2+; Differential Comment SCANNED; Macrocytosis 1+; Microcytosis 1+
[2023-07-02 10:00] VITALS: PULSE 102; O2SAT 99
[2023-07-02 12:16] VITALS: BP 149/51; PULSE 105
[2023-07-02] MEDS: Metoprolol Tartrate 50 MG Tablet PO ×2 (12:16→22:29)
[2023-07-02] MEDS: Pantoprazole Sodium 40 MG Tablet PO ×2 (12:17→22:31)
[2023-07-02] MEDS: Ascorbic Acid 500 MG Tablet PO (12:17)
[2023-07-02] MEDS: Iron Polysaccharide Complex 150 MG CAPSULE PO (12:17)
[2023-07-02 14:10] VITALS: BP 123/54; PULSE 86; RESP 16; TEMP 36.4; O2SAT 97
[2023-07-02] MEDS: Tamsulosin HCl 0.4 MG Capsule PO (17:06)
[2023-07-02 22:29] VITALS: BP 127/65; PULSE 93
[2023-07-02] MEDS: amLODIPine 10 MG Tablet PO (22:30)
[2023-07-02] MEDS: Atorvastatin Calcium 10 MG Tablet 5 MG PO (22:30)
[2023-07-02] MEDS: Latanoprost 0.005% 1 Bottle 1 DRP EACH EYE (22:32)
[2023-07-03] MEDS: Glucerna Shake 120 ML LIQUID PO ×4 (05:09→20:54)
[2023-07-03] MEDS: Sucralfate 1 GM Tablet PO ×3 (06:33→16:48)
[2023-07-03 06:35] LABS: Bedside Glucose 168 mg/dL (74-106)
[2023-07-03 08:52] LABS: Anion Gap 3 (5-15); BUN 25 mg/dL (7-18); BUN/Creat Ratio 22.3 RATIO (10-20); Calcium,Total 9.6 mg/dL (8.5-10.1); Chloride 104 mmol/L (98-107); Creatinine, Serum 1.12 mg/dL (0.55-1.02); EST Glomerular Filtration Rate 49 mL/min (>60); Est Glom Filt Rate - Afr Amer 59 mL/min (>60); Estimated Creatinine Clearance 24.15 ml/min; Glucose 214 mg/dL (74-106); Potassium 4.7 mmol/L (3.5-5.1); Sodium Level 133 mmol/L (136-145)
--- NOTE | 2023-07-03 09:09 | PCM.CONS.GEN ---
Assessment & Plan Assessment/Plan (1) Urinary retention: PLAN: Plan Cultures are negative, there is no constipation and the patient is ambulatory Will give trial of void today HPI Consult Data Date of Consult: 07/03/23 HPI Narrative Reason for Consultation: urinary retention HPI Narrative: VERONICA HUNT, is a 88 F who is admitted to the transitional care unit for deconditioning following an admission for hypoglycemia. She has been having issues with urinary retention and an indwelling Gabriel catheter has been placed. Flomax was also started. They have been following her urine cultures closely. Veronica denies history of urologic issues in the past. She denies urinary incontinence, urgency, urinary tract infections and gross hematuria. She does have a history of nocturia and usually voids 2-3 times during the night. Typically she voids only 2-3 times during the day and we did discuss timed voiding for her. [facility] Medical History (Updated 07/03/23 @ 12:[address] Dior Hwang MD) Diabetes Glaucoma Hyperlipidemia Hypertension Urinary retention Urinary tract infection Home Medications latanoprost 0.005 % eye drops 1 drp QHS Check with primary doctor 04/04/17 [History Last Taken Unknown] simvastatin 10 mg tablet (Zocor) 10 mg PO QHS Check with primary doctor 04/04/17 [History Last Taken 06/21/23] acetaminophen 500 mg tablet 1,000 mg (2 x 500 mg) PO Q6H PRN Pain Score 1-3/10 06/15/19 [Rx Last Taken Unknown] amlodipine 2.5 mg tablet 10 mg PO 2000 Blood Pressure 06/08/23 [History Last Taken Unknown] pantoprazole 40 mg tablet,delayed release 40 mg PO BID Acid Reflux #60 tabs 06/20/23 [Rx Last Taken 06/22/23] sucralfate 1 gram tablet (Carafate) 1 g PO TID Stomach 0 days #150 tabs 06/20/23 [Rx Last Taken Unknown] food supplemt, lactose-reduced (Ensure Active High Protein oral liquid) 120 ml PO 4X/DAY Nutritional supplement 06/22/23 [History Last Taken Unknown] insulin lispro 100 unit/mL subcutaneous pen (Humalog KwikPen (U-100) Insulin) See Protocol subcut ACHS Diabetes #0 mL 06/22/23 [Rx Last Taken 06/22/23] metoprolol tartrate 50 mg tablet 50 mg PO BID Blood Pressure #0 tabs 06/22/23 [Rx Last Taken 06/22/23] Allergy/AdvReac Type Severity Reaction Status Date / Time betaxolol [From Betoptic] Allergy Itching Verified 06/08/23 14:18 brimonidine [From Alphagan P] Allergy Itching Verified 06/08/23 14:18 cephalexin [From Keflex] Allergy Rash Verified 06/08/23 14:18 nabumetone [From Relafen] Allergy Rash Verified 06/08/23 14:18 Family History Other Diabetes Heart disease Surgical History Status post laparoscopy with lysis of adhesions Social History (Updated 06/22/23 @ 17:[address] Huseyin Verma MD) household members: family housing: house Smoking Status: Former smoker alcohol intake: never substance use type: does not use ROS Constitutional Constitutional: Reports systems reviewed and no addt'l complaints, except as documented Eyes Eyes: Reports systems reviewed and no addt'l complaints, except as documented ENT HEENT: Reports systems reviewed and no addt'l complaints, except as documented Cardiovascular Cardiovascular: Reports systems reviewed and no addt'l complaints, except as documented Respiratory/Chest Respiratory/Chest: Reports systems reviewed and no addt'l complaints, except as documented Gastrointestinal Gastrointestinal: Reports diarrhea; Denies constipation Genitourinary Genitourinary: Reports nocturia; Denies dysuria, hematuria, polyuria, urinary frequency, urinary hesitancy, urinary incontinence or urinary urgency Musculoskeletal Musculoskeletal: Reports systems reviewed and no addt'l complaints, except as documented Integumentary Integumentary: Reports systems reviewed and no addt'l complaints, except as documented Neurologic Neurologic: Reports systems reviewed and no addt'l complaints, except as documented Psychiatric Psychiatric: Reports systems reviewed and no addt'l complaints, except as documented Endocrine Endocrinology: Reports systems reviewed and no addt'l complaints, except as documented Hematologic/Lymphatic Hematologic/Lymphatic: Reports systems reviewed and no addt'l complaints, except as documented Allergic/Immunologic Allergic/Immunologic: Reports systems reviewed and no addt'l complaints, except as documented Physical Exam Narrative Patient is eating in her chair at bedside. Gabriel catheter is draining clear yellow urine. Const alert, oriented x3 and no apparent distress HEENT normocephalic, head/scalp atraumatic, hearing grossly normal bilaterally, external ears normal, external nose normal and moist oral mucous membranes Eyes General Eye: normal appearance of both eyes Neck supple General: normal visual inspection Chest inspection of chest normal Resp normal respiratory effort, normal air movement and no retractions Cardio regular rate GI soft to palpation no CVA tenderness Extremity normal to inspection Skin no rashes or lesions noted Neuro oriented x3 and CN's II-XII intact bilaterally Psych mental status grossly normal Medical Records Data Medical Nutrition Assessment Dietitian: Malnutrition Criteria Met Start: 06/23/23 13:17 Freq: Status: Active Protocol: Document 06/25/23 11:38 SLA (Rec: 06/25/23 11:38 SLA Desktop) Nutrition Malnutrition Evidence of Malnutrition Exists Yes Malnutrition (severe): Acute Illness/Injury Evidenced By Suboptimal Energy Intake ( Severe),Weight Loss (Severe), Physical Changes (Moderate) Clinical Problem Acute Disease or Injury Related Malnutrition Etiology related to acute illness and GI dysfunction and inadequate energy intake Signs/Symptoms as evidenced by 18.5% 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 Lab / Micro Data 07/02/23 09:12 07/03/23 08:20 Labs: Laboratory Results - last 24 hr 07/02/23 09:12: WBC 8.5, RBC 2.92 L, Hgb 8.4 L, Hct 28.8 L, MCV 98.6, MCH 28.8, MCHC 29.2 L, RDW Std Deviation 65.6 H, RDW Coeff of Alanna 18.2 H, Plt Count 348, MPV 9.8, Immature Gran % (Auto) 0.400, Neut % (Auto) 67.2, Lymph % (Auto) 22.2, Freestone % (Auto) 7.8, Eos % (Auto) 2.0, Baso % (Auto) 0.4, Absolute Neuts (auto) 5.7, Absolute Lymphs (auto) 1.89, Nucleated RBC % 0, Differential Comment SCANNED, Anisocytosis 2+, Microcytosis 1+, Macrocytosis 1+, Sodium 133 L, Potassium 5.4 H, Chloride 106, Carbon Dioxide 24.0, Anion Gap 3 L, BUN 33 H, Creatinine 1.23 H, Estim Creat Clear Calc 21.99, Est GFR (MDRD) Af Amer 53 L, Est GFR (MDRD) Non-Af 44 L, BUN/Creatinine Ratio 26.8 H, Glucose 289 H, Calcium 9.4 07/03/23 06:07: POC Glucose 168 H 07/03/23 08:20: Sodium 133 L, Potassium 4.7, Chloride 104, Carbon Dioxide 26.0, Anion Gap 3 L, BUN 25 H, Creatinine 1.12 H, Estim Creat Clear Calc 24.15, Est GFR (MDRD) Af Amer 59 L, Est GFR (MDRD) Non-Af 49 L, BUN/Creatinine Ratio 22.3 H, Glucose 214 H, Calcium 9.6
[2023-07-03 09:26] VITALS: BP 129/91; PULSE 107; RESP 16; TEMP 36.1; O2SAT 99
[2023-07-03 09:30] VITALS: BP 129/91; PULSE 107
[2023-07-03] MEDS: Iron Polysaccharide Complex 150 MG CAPSULE PO (09:30)
[2023-07-03] MEDS: Miconazole Nitrate 43 GM Bottle 1 APPLIC TOPICAL ×2 (09:30→20:44)
[2023-07-03] MEDS: Metoprolol Tartrate 50 MG Tablet PO ×2 (09:30→20:54)
[2023-07-03] MEDS: Ascorbic Acid 500 MG Tablet PO (09:31)
[2023-07-03] MEDS: Pantoprazole Sodium 40 MG Tablet PO ×2 (09:31→20:55)
[2023-07-03] MEDS: Menthol/Lanolin/Calamine/Znox 113 GM Tube 1 APPLIC TOPICAL ×2 (09:32→20:48)
--- NOTE | 2023-07-03 15:41 | NURSING ---
Dr. Hwang called and updated on pt's residual of 179ml. Per Dr. Hwang keep Gabriel out and recheck post residual tomorrow 07/04/23.
[2023-07-03] MEDS: Tamsulosin HCl 0.4 MG Capsule PO (16:48)
[2023-07-03] MEDS: amLODIPine 10 MG Tablet PO (20:43)
[2023-07-03] MEDS: Latanoprost 0.005% 1 Bottle 1 DRP EACH EYE (20:52)
[2023-07-03 20:54] VITALS: BP 139/52; PULSE 104
[2023-07-03] MEDS: Atorvastatin Calcium 10 MG Tablet 5 MG PO (20:54)
[2023-07-04] MEDS: Glucerna Shake 120 ML LIQUID PO ×4 (05:11→20:38)
[2023-07-04 05:46] LABS: Anion Gap 5 (5-15); BUN 25 mg/dL (7-18); BUN/Creat Ratio 23.6 RATIO (10-20); Calcium,Total 9.4 mg/dL (8.5-10.1); Chloride 105 mmol/L (98-107); Creatinine, Serum 1.06 mg/dL (0.55-1.02); EST Glomerular Filtration Rate 52 mL/min (>60); Est Glom Filt Rate - Afr Amer 63 mL/min (>60); Estimated Creatinine Clearance 25.52 ml/min; Glucose 182 mg/dL (74-106); Potassium 4.8 mmol/L (3.5-5.1); Sodium Level 136 mmol/L (136-145)
[2023-07-04] MEDS: Sucralfate 1 GM Tablet PO ×3 (06:29→16:44)
[2023-07-04 06:41] VITALS: PULSE 91; RESP 16; O2SAT 98
[2023-07-04 06:41] LABS: Bedside Glucose 179 mg/dL (74-106)
[2023-07-04] MEDS: Miconazole Nitrate 43 GM Bottle 1 APPLIC TOPICAL ×2 (09:48→20:39)
[2023-07-04] MEDS: Pantoprazole Sodium 40 MG Tablet PO ×2 (09:49→20:40)
[2023-07-04] MEDS: Iron Polysaccharide Complex 150 MG CAPSULE PO (09:49)
[2023-07-04 09:50] VITALS: PULSE 91
[2023-07-04] MEDS: Metoprolol Tartrate 50 MG Tablet PO ×2 (09:50→20:40)
[2023-07-04] MEDS: Ascorbic Acid 500 MG Tablet PO (09:50)
[2023-07-04] MEDS: Menthol/Lanolin/Calamine/Znox 113 GM Tube 1 APPLIC TOPICAL ×2 (09:54→20:41)
--- NOTE | 2023-07-04 14:18 | CASEMGMT ---
Social Work Pt made adlib in room and hallway and rojas has been removed; pt voiding well. Pt and dtr inquiring about DC plan. SW spoke with pt and dtr and offered DC 07/09. Both agreeable. SW inquired about HHC vs OP. Dtr prefers HHC and to use [facility] whom pt used prior. No DME needs. Dtr to transport. SW phoned referral to [facility] for PT/OT. Plan: DC home with dtr 07/09, [facility] PT/OT ANTONETTE RickettsW
--- NOTE | 2023-07-04 14:27 | DS.PCM_ITS ---
Providers Date of Admission: 06/22/23 Primary Care Physician: Dr. Claire Sharif MD Consultations 06/24/23 17:40 Consult: Urology Routine Consulting Provider: Dior Hwang Reason for Consult: Urinary retention. EMERGENT Consult: No MD Notified: Yes Date Notified: 06/30/23 Time Notified: 11:00 Method of Notification: Verbal Reason For Visit: HYPOGLYCEMIA AND DIARRHEA Diagnosis Discharge Diagnosis (1) Urinary retention: Status: Acute Code(s): R33.9 - Retention of urine, unspecified Plan 88 year old female with below past medical history hospitalized for hypoglycemia, acute kidney injury, diarrhea, urinary retention requiring rojas catheter, admitted to TCU with debility, here for rehabilitation, strengthening, prior to discharge home with family. * Debility - PT/OT. * Pain - Tylenol 1000mg q6 prn pain (1-10). * Bowel - senna/colace 1 tablet bid, Magnesium Citrate 300ml daily prn. * Adult immunization - Administer pneumonia vaccine, covid19 vaccine, flu vaccine as appropriate. * DVT prophylaxis - Lovenox 30mg sc daily. * Hypertension - Metoprolol 50mg bid, Amlodipine 10mg daily. * Hyperlipidemia - Atorvastatin 5mg qhs. * Nutrition - Ensure Clear 120ml 4x/day. * Glaucoma - Latanoprost 0.005% 1gtt ou qhs. * Skin irritation - Calmoseptine topcial bid. * Tinea Corporis - Miconazole topical bid. * GERD - Pantoprazole 40mg bid, Sucralfate 1gm tid. * Urinary retention - Rx Tamsulosin 0.4mg daily, voiding trials per protocol. Medications at Discharge Home Medications latanoprost 0.005 % eye drops 1 drp QHS Check with primary doctor 04/04/17 simvastatin 10 mg tablet (Zocor) 10 mg PO QHS Check with primary doctor 04/04/17 amlodipine 2.5 mg tablet 10 mg PO 2000 Blood Pressure 06/08/23 pantoprazole 40 mg tablet,delayed release 40 mg PO BID Acid Reflux #60 tabs 06/20/23 metoprolol tartrate 50 mg tablet 50 mg PO BID Blood Pressure #0 tabs 06/22/23 ascorbic acid (vitamin C) 500 mg tablet 500 mg PO 1000 30 days #30 tabs 07/04/23 polysaccharide iron complex 150 mg iron capsule (Ferrex) 150 mg PO DAILY 30 days #30 caps 07/04/23 sucralfate 1 gram tablet (Carafate) 1 g PO TID Stomach 30 days #90 tabs 07/04/23 tamsulosin 0.4 mg capsule 0.4 mg PO DAILY@1730 30 days #30 caps 07/04/23 Hospital Course Operations None Procedures None Summary of Care Provided Minutes Spent on Discharge: 35 Hospital Course: 88 year old female with below past medical history hospitalized for hypoglycemia, acute kidney injury, diarrhea, urinary retention requiring rojas catheter, admitted to TCU with debility, here for rehabilitation, strengthening, prior to discharge home with family. 07/03/2023 Rojas removed, voiding well, continue Tamsulosin 0.4mg daily for now, appreciate Dr. Hwang assistance. Discharge home with daughter 07/09/2023, [facility] PT/OT. Physical Exam Const alert General Appearance: cooperative HEENT normocephalic Eyes PERRL and EOMs intact bilaterally Neck supple, no JVD and no carotid bruits Resp normal respiratory effort, normal air movement and clear to auscultation bilaterally Cardio regular rate and regular rhythm GI normal to inspection, nondistended, normoactive bowel sounds, non-tender and non-distended Extremity normal capillary refill General Extremity: Negative for edema Skin no rashes or lesions noted General Skin Exam: no breakdown Psych affect normal Appearance: appropriate Medical Records Data Medical Nutrition Assessment
--- NOTE | 2023-07-04 14:27 | PCM.DC.SUM ---
Providers Date of Admission: 06/22/23 Primary Care Physician: Dr. Claire Sharif MD Consultations 06/24/23 17:40 Consult: Urology Routine Consulting Provider: Dior Hwang Reason for Consult: Urinary retention. EMERGENT Consult: No MD Notified: Yes Date Notified: 06/30/23 Time Notified: 11:00 Method of Notification: Verbal Reason For Visit: HYPOGLYCEMIA AND DIARRHEA Diagnosis Discharge Diagnosis (1) Urinary retention: Status: Acute Code(s): R33.9 - Retention of urine, unspecified Plan 88 year old female with below past medical history hospitalized for hypoglycemia, acute kidney injury, diarrhea, urinary retention requiring rojas catheter, admitted to TCU with debility, here for rehabilitation, strengthening, prior to discharge home with family. Debility - PT/OT. Pain - Tylenol 1000mg q6 prn pain (1-10). Bowel - senna/colace 1 tablet bid, Magnesium Citrate 300ml daily prn. Adult immunization - Administer pneumonia vaccine, covid19 vaccine, flu vaccine as appropriate. DVT prophylaxis - Lovenox 30mg sc daily. Hypertension - Metoprolol 50mg bid, Amlodipine 10mg daily. Hyperlipidemia - Atorvastatin 5mg qhs. Nutrition - Ensure Clear 120ml 4x/day. Glaucoma - Latanoprost 0.005% 1gtt ou qhs. Skin irritation - Calmoseptine topcial bid. Tinea Corporis - Miconazole topical bid. GERD - Pantoprazole 40mg bid, Sucralfate 1gm tid. Urinary retention - Rx Tamsulosin 0.4mg daily, voiding trials per protocol. Medications at Discharge Home Medications latanoprost 0.005 % eye drops 1 drp QHS Check with primary doctor 04/04/17 simvastatin 10 mg tablet (Zocor) 10 mg PO QHS Check with primary doctor 04/04/17 amlodipine 2.5 mg tablet 10 mg PO 2000 Blood Pressure 06/08/23 pantoprazole 40 mg tablet,delayed release 40 mg PO BID Acid Reflux #60 tabs 06/20/23 metoprolol tartrate 50 mg tablet 50 mg PO BID Blood Pressure #0 tabs 06/22/23 ascorbic acid (vitamin C) 500 mg tablet 500 mg PO 1000 30 days #30 tabs 07/04/23 polysaccharide iron complex 150 mg iron capsule (Ferrex) 150 mg PO DAILY 30 days #30 caps 07/04/23 sucralfate 1 gram tablet (Carafate) 1 g PO TID Stomach 30 days #90 tabs 07/04/23 tamsulosin 0.4 mg capsule 0.4 mg PO DAILY@1730 30 days #30 caps 07/04/23 Hospital Course Operations None Procedures None Summary of Care Provided Minutes Spent on Discharge: 35 Hospital Course: 88 year old female with below past medical history hospitalized for hypoglycemia, acute kidney injury, diarrhea, urinary retention requiring rojas catheter, admitted to TCU with debility, here for rehabilitation, strengthening, prior to discharge home with family. 07/03/2023 Rojas removed, voiding well, continue Tamsulosin 0.4mg daily for now, appreciate Dr. Hwang assistance. Discharge home with daughter 07/09/2023, [facility] PT/OT. Physical Exam Const alert General Appearance: cooperative HEENT normocephalic Eyes PERRL and EOMs intact bilaterally Neck supple, no JVD and no carotid bruits Resp normal respiratory effort, normal air movement and clear to auscultation bilaterally Cardio regular rate and regular rhythm GI normal to inspection, nondistended, normoactive bowel sounds, non-tender and non-distended Extremity normal capillary refill General Extremity: Negative for edema Skin no rashes or lesions noted General Skin Exam: no breakdown Psych affect normal Appearance: appropriate Medical Records Data Medical Nutrition Assessment Dietitian: Malnutrition Criteria Met Start: 06/23/23 13:17 Freq: Status: Active Protocol: Document 06/25/23 11:38 SLA (Rec: 06/25/23 11:38 SLA Desktop) Nutrition Malnutrition Evidence of Malnutrition Exists Yes Malnutrition (severe): Acute Illness/Injury Evidenced By Suboptimal Energy Intake ( Severe),Weight Loss (Severe), Physical Changes (Moderate) Clinical Problem Acute Disease or Injury Related Malnutrition Etiology related to acute illness and GI dysfunction and inadequate energy intake Signs/Symptoms as evidenced by 18.5% unintended wt loss 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 Weight / BMI Weight Weight: 43.233 kg Body Mass Index (BMI) 18.6 ABG / Lab / Microbiology Data 07/02/23 09:12 07/04/23 05:01 Laboratory: Laboratory Results - last 24 hr 07/04/23 05:01: Sodium 136, Potassium 4.8, Chloride 105, Carbon Dioxide 26.0, Anion Gap 5, BUN 25 H, Creatinine 1.06 H, Estim Creat Clear Calc 25.52, Est GFR (MDRD) Af Amer 63, Est GFR (MDRD) Non-Af 52 L, BUN/Creatinine Ratio 23.6 H, Glucose 182 H, Calcium 9.4 07/04/23 06:03: POC Glucose 179 H Microbiology: Microbiology 06/25/23 05:10 Nasal Secretion SARS-CoV-2 Antigen (Rapid) - Final D/C Instructions Discharge Diet: No restrictions Discharge Activity: Return to Normal Activity, May Shower and Use Walker Weight Bearing Status: Weight bearing as tolerated Call your doctor if you observe: Fever of 101 or Higher, Inability to urinate, Inability to have a bowel movement, Shortness of breath, Dizziness, Fainting spells, Swelling in the ankles, Chest pain and Uncontrolled pain Additional Instructions: Discharge home with daughter 07/09/2023, [facility] PT/OT. Meaningful Use Info Meaningful Use Diagnoses (Choose all that apply): None applicable Discharge Plan Admission Admit Date/Time: 06/22/23 15:46 Primary Reason for Your Visit: Debility. Attending Provider: Huseyin Verma Chi Primary Care Provider: Claire Sharif Consulting Providers: Dior Hwang Instructions Additional Instructions / Restrictions: Discharge home with daughter 07/09/2023, [facility] PT/OT. Discharge Orders/Prescriptions Prescriptions: New ascorbic acid (vitamin C) 500 mg Tablet 500 mg PO 1000 30 Days Qty: 30 0RF polysaccharide iron complex [Ferrex 150] 150 mg iron Capsule 150 mg PO DAILY 30 Days Qty: 30 0RF tamsulosin 0.4 mg Capsule 0.4 mg PO DAILY@1730 30 Days Qty: 30 0RF Continued latanoprost 1 DROP bottle 1 drp Each Eye QHS simvastatin [Zocor] 10 MG tablet 10 mg PO QHS amlodipine 2.5 MG tablet 10 mg PO 1999 metoprolol tartrate 50 mg Tablet 50 mg PO BID Qty: 0 0RF sucralfate [Carafate] 1 gram tablet 1 g PO TID 30 Days Qty: 90 0RF Rx Instructions: 1 gram TID for 30 days then take 1 gram BID for 30 days. pantoprazole 40 mg tablet,delayed release (DR/EC) 40 mg PO BID Qty: 60 6RF Discontinued acetaminophen 500 MG tablet 1,000 mg PO Q6H PRN (Reason: Pain Score 1-3/10) 0RF insulin lispro [Humalog KwikPen Insulin] 100 unit/mL Insulin Pen See Protocol subcut ACHS Qty: 0 0RF Protocol: 1. Sliding Scale Insulin Low Dosing Condition: 150-224 mg/dl = 1 unit Condition: 225-299 mg/dl = 2 units Condition: 300-374 mg/dl = 3 units Condition: 375-499 mg/dl = 4 units Condition: Greater than 449 call physician Protocol Text: - Use for Total Daily Dose of Insulin 15-27 units - Thin, elderly, renal patients LOW DOSING ALGORITHM Ensure Active High Protein Liquid 120 ml PO 4X/DAY Referrals / Follow Up: Claire Sharif MD [Primary Care Provider] - 07/15/23 2:10 pm Disposition Disposition (needs filled in before D/C Order can be placed): Home Health Service
[2023-07-04 14:52] VITALS: BP 104/53; PULSE 100; RESP 16; TEMP 36.2; O2SAT 100
[2023-07-04] MEDS: Tamsulosin HCl 0.4 MG Capsule PO (16:44)
[2023-07-04 20:40] VITALS: BP 130/47; PULSE 102
[2023-07-04] MEDS: amLODIPine 10 MG Tablet PO (20:40)
[2023-07-04] MEDS: Atorvastatin Calcium 10 MG Tablet 5 MG PO (20:41)
[2023-07-04] MEDS: Latanoprost 0.005% 1 Bottle 1 DRP EACH EYE (20:42)
[2023-07-05] MEDS: Sucralfate 1 GM Tablet PO ×3 (06:21→16:46)
[2023-07-05] MEDS: Glucerna Shake 120 ML LIQUID PO ×4 (06:21→20:22)
[2023-07-05 06:26] VITALS: PULSE 92; RESP 14; O2SAT 99
[2023-07-05 06:48] LABS: Bedside Glucose 164 mg/dL (74-106)
[2023-07-05 09:34] VITALS: BP 111/41; PULSE 94
[2023-07-05] MEDS: Metoprolol Tartrate 50 MG Tablet PO ×2 (09:34→20:24)
[2023-07-05] MEDS: Pantoprazole Sodium 40 MG Tablet PO ×2 (09:34→20:23)
[2023-07-05] MEDS: Iron Polysaccharide Complex 150 MG CAPSULE PO (09:34)
[2023-07-05] MEDS: Ascorbic Acid 500 MG Tablet PO (09:36)
[2023-07-05] MEDS: Miconazole Nitrate 43 GM Bottle 1 APPLIC TOPICAL (09:37)
[2023-07-05] MEDS: Menthol/Lanolin/Calamine/Znox 113 GM Tube 1 APPLIC TOPICAL (09:37)
[2023-07-05 09:40] VITALS: BP 111/41; PULSE 97; RESP 18; TEMP 37
[2023-07-05] MEDS: Tamsulosin HCl 0.4 MG Capsule PO (16:46)
[2023-07-05] MEDS: Latanoprost 0.005% 1 Bottle 1 DRP EACH EYE (20:22)
[2023-07-05 20:24] VITALS: BP 132/50; PULSE 96
[2023-07-05] MEDS: Atorvastatin Calcium 10 MG Tablet 5 MG PO (20:25)
[2023-07-05] MEDS: amLODIPine 10 MG Tablet PO (20:27)
[2023-07-06] MEDS: Glucerna Shake 120 ML LIQUID PO ×3 (05:12→17:09)
[2023-07-06 06:13] LABS: Bedside Glucose 223 mg/dL (74-106)
[2023-07-06] MEDS: Sucralfate 1 GM Tablet PO ×3 (06:39→17:09)
[2023-07-06] MEDS: Ascorbic Acid 500 MG Tablet PO (09:01)
[2023-07-06 09:02] VITALS: PULSE 76
[2023-07-06] MEDS: Pantoprazole Sodium 40 MG Tablet PO ×2 (09:02→22:04)
[2023-07-06] MEDS: Metoprolol Tartrate 50 MG Tablet PO ×2 (09:02→22:04)
[2023-07-06] MEDS: Iron Polysaccharide Complex 150 MG CAPSULE PO (09:02)
[2023-07-06] MEDS: Menthol/Lanolin/Calamine/Znox 113 GM Tube 1 APPLIC TOPICAL (09:05)
[2023-07-06] MEDS: Miconazole Nitrate 43 GM Bottle 1 APPLIC TOPICAL (09:06)
[2023-07-06 14:14] VITALS: BP 132/48; PULSE 97; RESP 16; TEMP 36.1; O2SAT 100
[2023-07-06] MEDS: Tamsulosin HCl 0.4 MG Capsule PO (17:10)
[2023-07-06] MEDS: amLODIPine 10 MG Tablet PO (22:03)
[2023-07-06 22:04] VITALS: BP 130/48; PULSE 101
[2023-07-06] MEDS: Atorvastatin Calcium 10 MG Tablet 5 MG PO (22:05)
[2023-07-06] MEDS: Latanoprost 0.005% 1 Bottle 1 DRP EACH EYE (22:05)
--- NOTE | 2023-07-07 00:56 | NURSING ---
Incontinent of urine on edge of fitted sheet, hospital socks, floor beside bed, and floor in front of toilet. Mattress wiped with PDI wipe. Linens changed. Floor cleaned. Socks changed. Positioned in bed for comfort. Bladder scan for 123 ml after voiding 300 ml in addition to incontinent episode. Urine yellow and appears slightly cloudy in hat. No foul odor noted. Pt denies any dysuria. Will continue to monitor.
[2023-07-07 05:26] LABS: Absolute Lymphocyte Count 1.76 X10^3/uL (0.83-4.51); Absolute Neutrophil Count 4.6 X10^3/uL (2.0-7.7); Basophil# 0.06 X10^3/uL; Basophil% 0.8 % (0-1); Eosinophils% 2.7 % (0-5); Hematocrit 27.3 % (37-47); Hemoglobin 8.2 g/dL (12.0-15.0); Lymphocyte # 1.76 X10^3/ul (0.83-4.51); Mean Corpuscular Hgb 28.7 pg (27.0-32.0); Mean Corpuscular Volume 95.5 fL (81-99); Mean Platelet Vol. 9.3 fl (6.2-12.0); Monocyte# 0.66 X10^3/uL; NRBC Flagged by Analyzer 0 % (0-5); Neutrophil # 4.63 X10^3/uL (2.7-7.7); Neutrophil % 63.2 % (47-70); Platelet Count 322 K/mm3 (150-450); RBC Distribution Width CV 17.2 % (11.6-14.6); RBC Distribution Width SD 61.5 fl (35.1-43.9); Red Blood Count 2.86 M/mm3 (4.2-5.4); White Blood Count 7.3 K/mm3 (4.4-11.0)
[2023-07-07] MEDS: Glucerna Shake 120 ML LIQUID PO ×3 (05:44→16:38)
[2023-07-07 05:51] LABS: Anion Gap 5 (5-15); BUN 31 mg/dL (7-18); BUN/Creat Ratio 29.2 RATIO (10-20); Calcium,Total 9.3 mg/dL (8.5-10.1); Chloride 105 mmol/L (98-107); Creatinine, Serum 1.06 mg/dL (0.55-1.02); EST Glomerular Filtration Rate 52 mL/min (>60); Est Glom Filt Rate - Afr Amer 63 mL/min (>60); Estimated Creatinine Clearance 25.52 ml/min; Glucose 199 mg/dL (74-106); Potassium 4.7 mmol/L (3.5-5.1); Sodium Level 139 mmol/L (136-145)
[2023-07-07 06:45] LABS: Bedside Glucose 196 mg/dL (74-106)
[2023-07-07] MEDS: Sucralfate 1 GM Tablet PO ×3 (07:04→16:38)
[2023-07-07 09:30] VITALS: BP 121/40; PULSE 103
[2023-07-07] MEDS: Ascorbic Acid 500 MG Tablet PO (09:30)
[2023-07-07] MEDS: Metoprolol Tartrate 50 MG Tablet PO ×2 (09:30→19:57)
[2023-07-07] MEDS: Pantoprazole Sodium 40 MG Tablet PO ×2 (09:30→19:58)
[2023-07-07] MEDS: Iron Polysaccharide Complex 150 MG CAPSULE PO (09:30)
[2023-07-07 14:44] VITALS: BP 118/39; PULSE 98; RESP 18; TEMP 36.4; O2SAT 97
[2023-07-07] MEDS: Tamsulosin HCl 0.4 MG Capsule PO (16:40)
[2023-07-07 19:45] VITALS: PULSE 101; RESP 16; O2SAT 99
[2023-07-07 19:57] VITALS: BP 128/50; PULSE 101
[2023-07-07] MEDS: amLODIPine 10 MG Tablet PO (19:57)
[2023-07-07] MEDS: Atorvastatin Calcium 10 MG Tablet 5 MG PO (19:57)
[2023-07-07] MEDS: Latanoprost 0.005% 1 Bottle 1 DRP EACH EYE (20:00)
[2023-07-08] MEDS: Sucralfate 1 GM Tablet PO ×3 (05:16→17:02)
[2023-07-08] MEDS: Glucerna Shake 120 ML LIQUID PO ×3 (06:02→17:02)
[2023-07-08 06:50] LABS: Bedside Glucose 204 mg/dL (74-106)
[2023-07-08] MEDS: Iron Polysaccharide Complex 150 MG CAPSULE PO (10:03)
[2023-07-08] MEDS: Pantoprazole Sodium 40 MG Tablet PO ×2 (10:03→20:05)
[2023-07-08 10:04] VITALS: BP 106/40; PULSE 105
[2023-07-08] MEDS: Metoprolol Tartrate 50 MG Tablet PO ×2 (10:04→20:05)
[2023-07-08] MEDS: Ascorbic Acid 500 MG Tablet PO (10:04)
[2023-07-08 12:00] VITALS: BMI 19.3
[2023-07-08 16:00] VITALS: BP 118/55; PULSE 95; RESP 16; TEMP 36.2; O2SAT 100
[2023-07-08] MEDS: Tamsulosin HCl 0.4 MG Capsule PO (17:02)
--- NOTE | 2023-07-08 17:18 | PCM.PN.GU ---
Subjective Subjective Voiding has been improving over the last few days since the rojas was removed. Objective Data Objective Data Voiding about 300cc per void with residuals less than 150cc. Vital Signs: Vital Signs Temp Pulse Resp BP Pulse Ox O2 Del Method 97.2 F L 95 16 118/55 L 100 Room Air 07/08/23 16:00 07/08/23 16:00 07/08/23 16:00 07/08/23 16:00 07/08/23 16:00 07/08/23 16:00 Oxygen Delivery Method Room Air Weight: 44.996 kg Body Mass Index (BMI) 19.3 Intake & Output: Intake and Output for Last 24 Hours 07/06/23 07/07/23 07/08/23 23:59 23:59 23:59 Intake Total 1010 / 1010 960 / 960 720 / 720 Output Total 720 / 720 600 / 600 600 / 600 Balance 290 / 290 360 / 360 120 / 120 Medical Nutrition Assessment Dietitian: Malnutrition Criteria Met Start: 06/23/23 13:17 Freq: Status: Active Protocol: Document 06/25/23 11:38 SLA (Rec: 06/25/23 11:38 SLA Desktop) Nutrition Malnutrition Evidence of Malnutrition Exists Yes Malnutrition (severe): Acute Illness/Injury Evidenced By Suboptimal Energy Intake ( Severe),Weight Loss (Severe), Physical Changes (Moderate) Clinical Problem Acute Disease or Injury Related Malnutrition Etiology related to acute illness and GI dysfunction and inadequate energy intake Signs/Symptoms as evidenced by 18.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 Lab / Micro Data 07/07/23 05:11 07/07/23 05:11 Labs: Laboratory Results - last 24 hr 07/08/23 06:03: POC Glucose 204 H Micro: Microbiology 06/25/23 05:10 Nasal Secretion SARS-CoV-2 Antigen (Rapid) - Final Physical Exam Const alert, oriented x3 and no apparent distress General Appearance: cooperative, comfortable and well kempt HEENT normocephalic and head/scalp atraumatic Eyes General Eye: normal appearance of both eyes Neck supple General: trachea midline Chest inspection of chest normal Resp normal respiratory effort, normal air movement and no retractions Cardio regular rate GI soft to palpation, non-tender and non-distended Narrative: no rojas Skin no rashes or lesions noted Neuro oriented x3, CN's II-XII intact bilaterally and moves all extremities Psych mental status grossly normal, thought process normal and cooperative Assessment & Plan Assessment/Plan (1) Urinary retention: PLAN: Plan continue timed voiding continue Flomax on discharge I will see her in the office in 2 weeks, we will stop the Flomax if still doing well at that visit thank you for consult
[2023-07-08 20:00] VITALS: PULSE 107; RESP 16; O2SAT 98
[2023-07-08] MEDS: amLODIPine 10 MG Tablet PO (20:04)
[2023-07-08] MEDS: Latanoprost 0.005% 1 Bottle 1 DRP EACH EYE (20:04)
[2023-07-08 20:05] VITALS: BP 132/48; PULSE 107
[2023-07-08] MEDS: Atorvastatin Calcium 10 MG Tablet 5 MG PO (20:05)
[2023-07-09] MEDS: Glucerna Shake 120 ML LIQUID PO (06:18)
[2023-07-09] MEDS: Sucralfate 1 GM Tablet PO (06:24)
[2023-07-09 06:38] VITALS: PULSE 77; RESP 16; O2SAT 98
[2023-07-09 08:49] VITALS: BP 131/50; PULSE 98; RESP 16; TEMP 36.2; O2SAT 100
[2023-07-09 08:51] VITALS: BP 131/50; PULSE 98
[2023-07-09] MEDS: Iron Polysaccharide Complex 150 MG CAPSULE PO (08:51)
[2023-07-09] MEDS: Metoprolol Tartrate 50 MG Tablet PO (08:51)
[2023-07-09] MEDS: Pantoprazole Sodium 40 MG Tablet PO (08:52)
[2023-07-09] MEDS: Ascorbic Acid 500 MG Tablet PO (08:52)
--- NOTE | 2023-07-10 11:45 | CASEMGMT ---
Social Work BIMS () and PHQ-2 () completed for MDS assessment. Karina Alcocer MSW DOOR ASSEMBLER
== END 2023-07-09 11:15 | disposition home health service (06) | DRG 639 ==
PROVIDERS: Admitting Provider Family Medicine Geriatric Medicine; PCP Internal Medicine; Visit Provider Family Medicine Geriatric Medicine
DX: E11.649 Type 2 diabetes mellitus with hypoglycemia without coma (principal); E78.5 Hyperlipidemia, unspecified; E11.39 Type 2 diabetes mellitus with other diabetic ophthalmic complication; Z79.4 Long term (current) use of insulin; I10 Essential (primary) hypertension; K21.9 Gastro-esophageal reflux disease without esophagitis; R33.9 Retention of urine, unspecified; Z87.891 Personal history of nicotine dependence; H40.9 Unspecified glaucoma; Z87.440 Personal history of urinary (tract) infections; Z79.899 Other long term (current) drug therapy
CPT/HCPCS: 36415; 80048; 82962; 85025; 87811; 97110; 97112; 97116; 97162; 97166; 97530; 97535; 97802

== ENCOUNTER 2023-10-05 18:57 | Inpatient (IN) | payer MEDICARE, OTHER, SELFPAY ==
[2023-10-05 19:03] VITALS: BP 204/58; PULSE 126; RESP 30; TEMP 38.7; O2SAT 94; BMI 20.7
--- NOTE | 2023-10-05 19:21 | EKG12_ITS ---
Test Reason : DYSRHYTHMIA Blood Pressure : / mmHG Vent. Rate : 126 BPM Atrial Rate : 126 BPM P-R Int : 142 ms QRS Dur : 076 ms QT Int : 316 ms P-R-T Axes : 058 018 059 degrees QTc Int : 457 [address] N[address] abnormality Abnormal ECG Confirmed by Jeb Mccoy ([id number]), food expeditor RACIEL PRITCHETT ([id number]) on 10/07/2023 9:12:14 AM Referred By: Confirmed By:Jeb Mccoy
--- NOTE | 2023-10-05 19:24 | CT_ITS ---
INDICATION: Pain EXAMINATION: CT ABDOMEN AND PELVIS WITHOUT CONTRAST - CT Abdomen And Pelvis W/O Contrast Injection TECHNIQUE: Helically acquired images were obtained of the abdomen and pelvis without oral or IV contrast. A radiation dose optimization technique was used for this scan. IV Contrast dosage and agent: None. Oral contrast: None. COMPARISON: 02/15/2020 FINDINGS: LOWER CHEST: Bibasilar dependent and/or fibrotic changes. No cardiomegaly or pericardial effusion. LIVER: Homogeneous. No focal mass. GALLBLADDER AND BILIARY TREE: No calcified gallstones. Transverse gallbladder distention 4.4 cm with wall thickening/edema. Common bile duct distended to 14 mm, no intrahepatic ductal dilatation. No choledocholithiasis. PANCREAS: No focal cystic or solid mass. SPLEEN: Normal size without focal cystic or solid mass. ADRENAL GLANDS: No nodules. KIDNEYS AND URETERS: 9 mm hyperdense cortical cystic lesion right kidney. Right cortical cyst. No hydronephrosis. PERITONEUM: No ascites or free air. BOWEL: No evidence of acute appendicitis. Stable surgical changes without abnormal bowel distention. No focal inflammatory change. LYMPH NODES: No enlarged mesenteric or retroperitoneal lymph nodes. VESSELS: Aorta is non-dilated. URINARY BLADDER: Unremarkable. REPRODUCTIVE ORGANS: No pelvic masses. ABDOMINAL WALL: No discrete abdominal or pelvic wall hernia. BONES: No acute or aggressive abnormality. CT/Abdomen/Pelvis without Cont IMPRESSION: Nonspecific gallbladder distention with wall thickening/edema. Consider further evaluation by gallbladder ultrasound. Abnormal biliary distention with 14 mm common bile duct, no calcified bile duct calculus. 9 mm hyperdense right cortical cystic lesion. Although almost definitely benign six-month follow-up recommended for stability. Electronically Signed: Dick Aleman MD at 20:40 EST ,
[2023-10-05 19:45] LABS: Absolute Lymphocyte Count 0.43 X10^3/uL (0.83-4.51); Absolute Neutrophil Count 7.3 X10^3/uL (2.0-7.7); Basophil# 0.02 X10^3/uL; Basophil% 0.3 % (0-1); Eosinophil# 0.04 X10^3/uL; Eosinophils% 0.5 % (0-5); Hematocrit 33.9 % (37-47); Hemoglobin 10.5 g/dL (12.0-15.0); Lymphocyte # 0.43 X10^3/ul (0.83-4.51); Lymphocyte % 5.4 % (19-41); Mean Corpuscular Hgb 26.6 pg (27.0-32.0); Mean Platelet Vol. 9.8 fl (6.2-12.0); Monocyte% 2.5 % (0-10); NRBC Flagged by Analyzer 0 % (0-5); Neutrophil # 7.27 X10^3/uL (2.7-7.7); Neutrophil % 90.9 % (47-70); POSITIVE DIFFERENTIAL YES; Platelet Count 282 K/mm3 (150-450); RBC Distribution Width CV 13.8 % (11.6-14.6); RBC Distribution Width SD 43.7 fl (35.1-43.9); Red Blood Count 3.94 M/mm3 (4.2-5.4)
[2023-10-05] MEDS: Acetaminophen 500 MG Tablet 1000 MG PO (19:46)
--- OUTSIDE RECORDS SUMMARY | 2023-10-05 19:46 | XMS RPT_ITS | CCD ---
Author Name Unknown Address [address] [place] [address] Organization [facility] Care Team Providers Care Marketing Executive Name Role Phone Reese Sharif MD Primary Care Provider LIA GUERRERO Attending Unavailable REESE SHARIF Primary Care Unavailable REESE SHARIF Primary Care Unavailable REESE SHARIF Primary Care Unavailable REESE SHARIF Attending Unavailable Reese Sharif MD Primary Care Provider Allergies Allergy Classification Reported Allergen(s) Allergy Type Date of Onset Reaction(s) Facility (20 sources) Betaxolol; Translations: [BETAXOLOL HCL] Drug Allergy 04-17-2005 Swelling, Itching [facility] Work Phone: (20 sources) brimonidine; Translations: [BRIMONIDINE TARTRATE] Drug Allergy 04-17-2005 Swelling, Itching [facility] Work Phone: (20 sources) Cephalexin; Translations: [CEPHALEXIN] Drug Allergy 04-16-[address] [facility] Work Phone: (20 sources) nabumetone; Translations: [NABUMETONE] Drug Allergy 04-16-[address] [facility] Work Phone: Medications Current Medications Medication Drug Class(es) Dates Sig (Normalized) Sig (Original) nitrofurantoin, macrocrystals 25 mg / nitrofurantoin, monohydrate 75 mg oral capsule (2 sources) Nitrofuran Antibacterial Start: 04-24-2023 End: 05-01-2023 take 1 capsule by mouth twice daily at mealtime nitrofurantoin monohydrate and macrocrystal (MACROBID) 100 mg capsule Indications: Dysuria Take 1 capsule by mouth twice daily with meals for 7 days. 14 capsule 0 04/24/2023 05/01/2023 Active Completed/Discontinued Medications Medication Drug Class(es) Dates Sig (Normalized) Sig (Original) amLODIPine 2.5 mg oral tablet (20 sources) Dihydropyridine Calcium Channel Sudheer Start: 07-15-2023 End: 07-15-2023 take 1 tablet by mouth once daily amLODIPine (NORVASC) 2.5 mg tablet Indications: Hypertension goal BP (blood pressure) Take 1 tablet by mouth once daily. DOSE CHANGE 90 tablet 3 07/15/2023 Active Problems Active Problems Problem Classification Problem Date Documented Da te Episodic/Chronic Acute and unspecified renal failure (1 source) Acute injury of kidney; Translations: [Acute kidney failure, unspecified] 07-15-2023 Episodic Chronic ulcer of skin (3 sources) Ulcer of toe; Translations: [Non-pressure chronic ulcer of other part of left foot with unspecified severity] Onset: 11-20-2019 11-20-2019 Chronic Diabetes mellitus with complications (20 sources) Type II diabetes mellitus uncontrolled; Translations: [Type 2 diabetes mellitus with hyperglycemia] Onset: 04-16-2005 08-27-2020 Chronic Diabetes mellitus without complication (3 sources) Type 2 diabetes mellitus without complication; Translations: [Type 2 diabetes mellitus without complications] Onset: 04-16-2005 Chronic Disorders of lipid metabolism (20 sources) Hyperlipidemia; Translations: [Hyperlipidemia, unspecified] Onset: 04-16-2005 06-27-2015 Chronic Diverticulosis and diverticulitis (20 sources) Diverticulosis of colon; Translations: [Diverticulosis of large intestine without perforation or abscess without bleeding] Onset: 02-18-2008 02-18-2008 Chronic Essential hypertension (20 sources) Hypertensive disorder; Translations: [Essential (primary) hypertension] Onset: 01-24-2014 08-20-2021 Chronic Glaucoma (20 sources) Glaucoma; Translations: [Unspecified glaucoma] Onset: 04-16-2005 03-10-2018 Chronic Immunizations and screening for infectious disease (2 sources) Patient encounter status; Translations: [Encounter for immunization] Episodic Malaise and fatigue (1 source) Asthenia; Translations: [Other malaise] 07-15-2023 Episodic Other endocrine disorders (1 source) Hypoglycemia; Translations: [Hypoglycemia, unspecified] 07-15-2023 Chronic Other gastrointestinal disorders (1 source) Diarrhea; Translations: [Diarrhea, unspecified] 07-15-2023 Episodic Other hematologic conditions (1 source) Increased serum protein level; Translations: [Abnormality of plasma protein, unspecified] Episodic Other hematologic conditions (1 source) Protein electrophoresis abnormal; Translations: [Other specified abnormalities of plasma proteins] Episodic Other nutritional; endocrine; and metabolic disorders (1 source) Hypercalcemia; Translations: [Hypercalcemia] Chronic Other skin disorders (1 source) Lesion of skin of nose; Translations: [Disorder of the skin and subcutaneous tissue, unspecified] Episodic Peripheral and visceral atherosclerosis (20 sources) Peripheral vascular disease, unspecified; Translations: [Peripheral vascular disease, unspecified] Onset: 12-13-2021 Chronic Residual codes; unclassified (20 sources) Periodic limb movement disorder; Translations: [Periodic limb movement disorder] Onset: 02-20-2009 02-20-2009 Chronic Past or Other Problems Problem Classification Problem Date Documented Da te Episodic/Chronic Deficiency and other anemia (20 sources) Iron deficiency anemia; Translations: [Iron deficiency anemia, unspecified] Onset: 04-02-2007 06-30-2009 Episodic Deficiency and other anemia (20 sources) Nutritional anemia; Translations: [Other vitamin B12 deficiency anemias] Onset: 04-02-2007 02-21-2009 Episodic Fluid and electrolyte disorders (20 sources) Hyponatremia; Translations: [Hypo-osmolality and hyponatremia] Onset: 08-27-2020 08-27-2020 Episodic Genitourinary symptoms and ill-defined conditions (20 sources) Albuminuria ; Translations: [Proteinuria, unspecified] Onset: 08-27-2020 08-27-2020 Episodic Other bone disease and musculoskeletal deformities (1 source) Disorder of skeletal system; Translations: [Disorder of bone, unspecified] Onset: 11-07-2008 07-06-2009 Episodic Results Test Name Value Interpretation Reference Range Facil ity Vital Signs Date Time Vital Sign Value Performing Clinician Vanessa lynch 07-15-2023 14:23-0500 Body weight 45.09 kg Lia Guerrero APRN.RIVETER Work Phone: [facility] 07-15-2023 14:23-0500 Diastolic blood pressure 50 mm[Hg] Lia Guerrero [employer].RIVETER Work Phone: [facility] 07-15-2023 14:23-0500 Heart rate 98 /min Lia Guerrero [employer]IV[employer] Work Phone: [facility] 07-15-2023 14:23-0500 Systolic blood pressure 128 mm[Hg] Lia Guerrero [employer] Work Phone: [facility] 12-02-2022 16:19-0400 Body temperature 97.59 [degF] Reese Sharif MD Work Phone: [facility] 12-02-2022 16:19-0400 Body weight 53.52 kg Reese Sharif MD Work Phone: [facility] 12-02-2022 16:19-0400 Diastolic blood pressure 68 mm[Hg] Reese Sahrif MD Work Phone: [facility] 12-02-2022 16:19-0400 Heart rate 91 /min Reese Sharif MD Work Phone: [facility] 12-02-2022 16:19-0400 Respiratory rate 18 /min Reese Sharif MD Work Phone: [facility] 12-02-2022 16:19-0400 SaO2% (BldA) [Mass fraction] 97 % Reese Sharif MD Work Phone: [facility] 12-02-2022 16:19-0400 Systolic blood pressure 142 mm[Hg] Reese Sharif MD Work Phone: [facility] 06-18-2022 08:41-0400 Diastolic blood pressure 53 mm[Hg] Lia Guerrero [employer] Work Phone: [facility] 06-18-2022 08:41-0400 Systolic blood pressure 137 mm[Hg] Lia Guerrero [employer] Work Phone: [facility] 06-18-2022 08:37-0400 Body weight 53.07 kg Lia Guerrero [employer] Work Phone: [facility] 06-18-2022 08:37-0400 Heart rate 77 /min Lia Guerrero [employer] Work Phone: [facility] 06-18-2022 08:37-0400 Respiratory rate 16 /min Lia Guerrero [employer] Work Phone: [facility] 12-17-2021 09:22-0400 Diastolic blood pressure 52 mm[Hg] Reese Sharif MD Work Phone: [facility] 12-17-2021 09:22-0400 Systolic blood pressure 128 mm[Hg] Reese Sharif MD Work Phone: [facility] 12-17-2021 08:49-0400 Body weight 53.07 kg Reese Sharif MD Work Phone: [facility] 12-17-2021 08:49-0400 Heart rate 84 /min Reese Sharif MD Work Phone: [facility] Encounters Encounter Date Encounter Type Care Provider Facility Start: 07-28-2023 Refill Reese burgos MD Work Phone: [facility] [place] Procedures Date Procedure Procedure Detail Performing Clinician Start: 05-24-2023 INFLUENZA VACCINE, P RSV FREE, AGE 65+ YR, HIGH DOSE, QUADRIVALENT (FLUZONE HIGH-DOSE) Michael Kimbrough MD Work Phone: Start: 06-18-2022 INFLUENZA SEASONAL QUADRIVALENT HIGH DOSE AGE 65+ Lia Guerrero [employer] Work Phone: Plan of Treatment Date Care Activity Detail Author Start: 09-22-2023 End: 06-25-2024 Basic metabolic 2000 panel - Serum or Plasma BASIC METABOLIC PNL Lab Routine MERCEDES (acute kidney injury) (HCC) Hypoglycemia Expected: 09/22/2023 (Approximate), Expires: 06/25/2024 [facility] Work Phone: Immunizations Immunization Date Immunization Notes Care Provider Fa cili 05-24-2023 influenza (HD-IIV4) vaccine, age 65+ yr, high dose, quadrivalent, PF (FLUZONE HIGH-DOSE) Immunization Leora Work Phone: [facility] 06-18-2022 influenza, high-dose , quadrivalent vaccine (FLUZONE HIGH DOSE QUADRIVALENT) Lia Guerrero RIVETER Work Phone: [facility] Work Phone: 05-30-2021 influenza, high-dose , quadrivalent vaccine (FLUZONE HIGH DOSE QUADRIVALENT) Reese Sharif MD Work Phone: [facility] Work Phone: 02-12-2021 COVID-19 vaccine, fu ll dose (MODERNA) Reese Sharif MD Work Phone: [facility] Work Phone: 01-15-2021 COVID-19 vaccine, fu ll dose (MODERNA) Reese Sharif MD Work Phone: [facility] Work Phone: 06-09-2020 influenza, high-dose , quadrivalent vaccine (FLUZONE HIGH DOSE QUADRIVALENT) Reese Sharif MD Work Phone: [facility] Work Phone: 05-13-2019 influenza, high dose seasonal, preservative-free Reese Sharif MD Work Phone: [facility] 05-23-2018 influenza, high dose seasonal, preservative-free Reese Sharif MD Work Phone: [facility] 05-12-2017 influenza, high dose seasonal, preservative-free Reese Sharif MD Work Phone: [facility] 06-15-2016 influenza, high dose seasonal, preservative-free Reese Sharif MD Work Phone: [facility] 06-27-2015 influenza, high dose seasonal, preservative-free Reese Sharif MD Work Phone: [facility] 02-08-2015 pneumococcal conjuga te vaccine, 13 valent Reese Sharif MD Work Phone: [facility] 06-02-2014 influenza, seasonal, injectable Reese Sharif MD Work Phone: [facility] 07-10-2013 influenza virus vaccine, unspecified formulation Reese Sharif MD Work Phone: [facility] Work Phone: 02-08-2013 pneumococcal polysaccharide vaccine, 23 valent Reese Sharif MD Work Phone: [facility] 05-16-2012 influenza virus vaccine, unspecified formulation Reese Sharif MD Work Phone: [facility] Work Phone: 05-25-2011 influenza virus vaccine, unspecified formulation Reese Sharif MD Work Phone: [facility] Work Phone: 05-20-2009 influenza virus vaccine, unspecified formulation Reese Sharif MD Work Phone: [facility] Work Phone: 06-29-2008 influenza virus vaccine, unspecified formulation Reese Sharif MD Work Phone: [facility] Work Phone: 06-22-2007 influenza virus vaccine, unspecified formulation Reese Sharif MD Work Phone: [facility] Work Phone: 06-25-2006 influenza virus vaccine, unspecified formulation Reese Sharif MD Work Phone: [facility] 07-25-2004 tetanus and diphther ia toxoids, not adsorbed, for adult use Reese Sharif MD Work Phone: [facility] Work Phone: 07-11-2000 pneumococcal polysaccharide vaccine, 23 valent Reese Sharif MD Work Phone: [facility] Payers Date Payer Category Payer Medicare [id number] 2015 Private Health Insurance HUMANA HUMANA MEDICARE SUPPLEMENT [id number] 2015-Present [phone] [address] [address] [place] [address] Indemnity [id number] 2015 Private Health Insurance HUMANA HUMANA MEDICARE SUPPLEMENT [id number] 2015-Present [phone] [address] [address] [place] [address] Indemnity [id number] 2001 Medicare MEDICARE MEDICAR E A AND B [id number] 2001-Present [phone] [address] [address] [place] [address] Medicare [id number] 2001 Medicare MEDICARE MEDICAR E A AND B [id number] 2001-Present [phone] [place] [address] Medicare [id number] 2001 Medicare [id number] Social History Date Type Detail Facility Start: [facility]22 [facility] End: 08-12-1970 History of tobacco use Current smoker [facility] End: 08-12-1970 History of tobacco use Cigarette Smoker [facility] Start: 08-06-2021 End: 07-15-2023 Alcohol intake Current non-drinker of alcohol (finding) [facility] Start: 1935 Sex Assigned At Not on file [facility] Start: 11-20-2021 End: 06-18-2022 Exposure to SARS-CoV-2 (event) Not sure [facility] Start: 06-18-2022 End: 05-24-2023 Cigarettes smoked current (pack per day) - Reported 1 [facility] Work Phone: Start: 06-18-2022 Tobacco use and exposure Smokeless tobacco non-user [facility] Work Phone: Start: 12-02-2022 End: 05-24-[address] [facility] Work Phone: Adult Depression Screening Assessment 0 [facility] Work Phone: Medical Equipment Procedure Code Equipment Code Equipment Origin al Text Equipment Identifier Dates Test blood sugar daily. Dx: Type 2 DM - Uncontrolled E11.65 Insulin: No Start: 10-02-2021 End: 07-28-2023 Clinical Notes 04-02-2007 to 07-29-2023 Telephone Encounter - Piper Rodriguez LPN - 07/29/2023 10:55 AM ESTTelephone Encounter - Zari Norris - 07/28/2023 9:10 AM ESTTelephone Encounter - Ana Tapia RN - 07/14/2023 11:26 AM EST Note Date & Type Note Facility 07-29-2023 Miscellaneous Notes Patient has been identified by name and date of : Yes Patient phones for refill(s): Requested Prescriptions Pending Prescriptions Disp Refills blood sugar diagnostic (FREESTYLE LITE STRIPS) test strip 100 Strip 11 Sig: Test blood sugar daily. Dx: Type 2 DM - Uncontrolled E11.65 Insulin: No Date of last office visit in primary care: 07/15/2023 Date of next office visit in primary care: 10/14/2023 Last 2 Encounter Wt Readings: Date: Wt: 07/15/2023 45.1 kg (99 lb 6.4 oz) 12/02/2022 53.5 kg (118 lb) Previous labs/tests for medication: Diabetes: Hemoglobin A1C (%) Date Value 06/11/2022 7.5 12/11/2021 7.5 07/30/2021 7.5 04/09/2021 7.5 Please advise. Thank you. Piper Rodriguez LPN. Patient has been identified by name and date of : Yes Requested Prescriptions Pending Prescriptions Disp Refills blood sugar diagnostic (FREESTYLE LITE STRIPS) test strip 100 Strip 11 Sig: Test blood sugar daily. Dx: Type 2 DM - Uncontrolled E11.65 Insulin: No RX INSTRUCTIONS: Patient aware RX will be sent to pharmacy. No need to notify patient. Zari Wilks Pss documented in this encounter [facility] 07-18-2023 Miscellaneous Notes Below noted BP okay. Has had BP 128/50 in office. Cecilia- - [facility]- reporting an out of range BP for patient: 125/46 (92). Reports patient reports she is drinking a lot of water, no dizziness/lightheadedness. Reports patient is asymptomatic. Reports PT will see patient this afternoon, and will call pcp with BP reading if out of range. documented in this encounter [facility] 07-15-2023 Note HNO ID: [id number] Author: Lia Guerrero APRN.RIVETER Service: ? Author Type: Nurse Specialist Type: Progress Notes Filed: 07/15/2023 4:17 PM Note Text: SUBJECTIVE: Shingrix Vaccine(1 of 2) Never done Hepatitis B Vaccine(1 of 3 - Risk 3-dose series) Never done RSV Vaccine(1 - 1-dose 60+ series) Never done DTaP,Tdap,Td Vaccine(1 - Tdap) due on 07/26/2004 Dilated Retinal Exam due on 01/23/2020 Diabetic Foot Exam due on 05/21/2022 Advance Directive Discussion due on 08/25/2022 Depression Assessment due on 08/25/2022 HbA1C due on 12/10/2022 Urine Albumin:Creatinine Ratio due on 12/11/2022 LDL Cholesterol due on 12/11/2022 Covid-19 Vaccine( season) due on 04/25/2023 RE Pelletier is a 88 year old female. PMH significant for ACTIVE PROBLEM LIST Type 2 Diabetes Mellitus With Diabetic Peripheral Angiopathy Without Gangrene, Without Long-Term Current Use of Insulin (Hcc) Unspecified Glaucoma Hyperlipidemia Iron Deficiency Anemia, Unspecified Other Vitamin B12 Deficiency Anemia Diverticulosis of Colon (Without Mention of Hemorrhage) Periodic Limb Movement Disorder Hypertension Goal Bp (Blood Pressure) < 150/90 Albuminuria Hyponatremia Type 2 Diabetes Mellitus With Neurologic Complication, Without Long-Term Current Use of Insulin (Hcc) Pad (Peripheral Artery Disease) (Hcc) Presents for hospital discharge follow-up visit. She was admitted to [facility] June 19 through June 22, 2023. She was admitted for hypoglycemia, MERCEDES and UTI, brought to ER via EMS. She presents the ER with a glucose in the 30s. She reported taking metformin and glimepiride. She reported diarrhea and decreased appetite. Lab work in ER showed MERCEDES. Oral hypoglycemics were held in ER. She was treated with D50 on multiple occasions with glucose improving. She was treated with IV fluids. Losartan was held during admission and MERCEDES improved. During admission metoprolol tartrate dose was decreased from 200 mg twice daily to 50 mg twice daily. She had urinary retention during admission and Gabriel catheter needed to be placed due to severe urinary retention. She was advised to follow-up with urology about having this removed. Noted to have negative UTI Klebsiella that was noted on culture. Not treated with antibiotics. Medications at discharge include metoprolol tartrate 50 mg twice daily, ensure 4 times a day, sliding scale insulin, continued on Lantus Pro simvastatin acetaminophen amlodipine pantoprazole and super fate unchanged she was discharged to TCU. She remained at TCU from May 2019 to July 04, 2023. She was transferred to TCU for debility, admitted for rehabilitation and strengthening prior to discharge home with family. Seen by Dior Hwang for urinary retention. Treated with tamsulosin 0.5 mg daily for now. She was discharged home with daughter July 09, 2023. She has had [facility] home health care providing services. Living with daughter: Current symptoms: no Urinary retention: none since discharge Follow up Dr. Hwang: scheduled Home blood sugar readings: 109-309. Oral intake: 3 meals, eating well. She reports previously seeing Dr. Olivas for EGD with what sounds like an ulcer that was cauterized and esophageal dilatation. DIABETES MELLITUS: Home blood sugar readings from 139-209 fasting. No low readings of blood sugar reported since discharge home. She is without report of excessive thirst or increased frequency of urination, chest pain or dyspnea , numbness, tingling or pain in extremities, new or unusual visual symptoms, low sugar/hypoglycemic reactions, weight loss/gain, lightheadedness/dizziness and bowel changes/loose stools. Patient's last HgA1C was Hemoglobin A1C (%) Date Value 06/11/2022 7.5 12/11/2021 7.5 07/30/2021 7.5 04/09/2021 7.5 ) HTN: Without report headache, chest pain, palpitations, dyspnea, peripheral edema, orthopnea, fatigue and PND. Last 14 Encounter BP Readings: Date: BP: 07/15/2023 128/50 12/02/2022 142/68 06/18/2022 137/53 12/17/2021 128/52[checked 3 times; did deep breathing exercise prior[ 08/06/2021 156/55[average[ 04/16/2021 161/62[trubp average[ 11/27/2020 156/60 07/19/2020 122/72 05/30/2020 178/73 04/04/2020 130/60 03/27/2020 117/59 03/27/2020 186/62 03/14/2020 156/95 03/08/2020 136/54 Hyperlipidemia. Well controlled, no problems with medication. Her most recent lipid panels are: Cholesterol, Total (mg/dL) Date Value 12/11/2021 143 07/30/2021 116 02/14/2020 161 HDL Cholesterol (mg/dL) Date Value 12/11/2021 32 07/30/2021 29 02/14/2020 36 LDL Cholesterol (mg/dL) Date Value 12/11/2021 62 07/30/2021 43 02/14/2020 52 Triglyceride (mg/dL) Date Value 12/11/2021 243 07/30/2021 218 02/14/2020 366 Anemia: Taking iron every other day, doing well with this. Review of Systems Constitutional: Negative. Respiratory: (more content not included)... [facility] 07-15-2023 Instructions Lia Guerrero APRN.RIVETER - 07/15/2023 2:55 PM EST Check your blood sugar once daily in the morning for now. If your blood sugar is 200 or greater take one 500 mg metformin with breakfast. If you are feeling ill with nausea vomiting diarrhea and are not eating do not take metformin. . documented in this encounter [facility] 07-15-2023 History of Presen t illness Narrative SUBJECTIVE: Shingrix Vaccine(1 of 2) Never done Hepatitis B Vaccine(1 of 3 - Risk 3-dose series) Never done RSV Vaccine(1 - 1-dose 60+ series) Never done DTaP,Tdap,Td Vaccine(1 - Tdap) due on 07/26/2004 Dilated Retinal Exam due on 01/23/2020 Diabetic Foot Exam due on 05/21/2022 Advance Directive Discussion due on 08/25/2022 Depression Assessment due on 08/25/2022 HbA1C due on 12/10/2022 Urine Albumin:Creatinine Ratio due on 12/11/2022 LDL Cholesterol due on 12/11/2022 Covid-19 Vaccine( season) due on 04/25/2023 HPI Veronica Pelletier is a 88 year old female. PMH significant for ACTIVE PROBLEM LIST Type 2 Diabetes Mellitus With Diabetic Peripheral Angiopathy Without Gangrene, Without Long-Term Current Use of Insulin (Hcc) Unspecified Glaucoma Hyperlipidemia Iron Deficiency Anemia, Unspecified Other Vitamin B12 Deficiency Anemia Diverticulosis of Colon (Without Mention of Hemorrhage) Periodic Limb Movement Disorder Hypertension Goal Bp (Blood Pressure) < 150/90 Albuminuria Hyponatremia Type 2 Diabetes Mellitus With Neurologic Complication, Without Long-Term Current Use of Insulin (Hcc) Pad (Peripheral Artery Disease) (Hcc) Presents for hospital discharge follow-up visit. She was admitted to [facility] June 19 through June 22, 2023. She was admitted for hypoglycemia, MERCEDES and UTI, brought to ER via EMS. She presents the ER with a glucose in the 30s. She reported taking metformin and glimepiride. She reported diarrhea and decreased appetite. Lab work in ER showed MERCEDES. Oral hypoglycemics were held in ER. She was treated with D50 on multiple occasions with glucose improving. She was treated with IV fluids. Losartan was held during admission and MERCEDES improved. During admission metoprolol tartrate dose was decreased from 200 mg twice daily to 50 mg twice daily. She had urinary retention during admission and Gabriel catheter needed to be placed due to severe urinary retention. She was advised to follow-up with urology about having this removed. Noted to have negative UTI Klebsiella that was noted on culture. Not treated with antibiotics. Medications at discharge include metoprolol tartrate 50 mg twice daily, ensure 4 times a day, sliding scale insulin, continued on Lantus Pro simvastatin acetaminophen amlodipine pantoprazole and super fate unchanged she was discharged to TCU. She remained at TCU from May 2019 to July 04, 2023. She was transferred to TCU for debility, admitted for rehabilitation and strengthening prior to discharge home with family. Seen by Dior Hwang for urinary retention. Treated with tamsulosin 0.5 mg daily for now. She was discharged home with daughter July 09, 2023. She has had [facility] home health care providing services. Living with daughter: Current symptoms: no Urinary retention: none since discharge Follow up Dr. Hwang: scheduled Home blood sugar readings: 109-309. Oral intake: 3 meals, eating well. She reports previously seeing Dr. Olivas for EGD with what sounds like an ulcer that was cauterized and esophageal dilatation. DIABETES MELLITUS: Home blood sugar readings from 139-209 fasting. No low readings of blood sugar reported since discharge home. She is without report of excessive thirst or increased frequency of urination, chest pain or dyspnea , numbness, tingling or pain in extremities, new or unusual visual symptoms, low sugar/hypoglycemic reactions, weight loss/gain, lightheadedness/dizziness and bowel changes/loose stools. Patient's last HgA1C was Hemoglobin A1C (%) Date Value 06/11/2022 7.5 12/11/2021 7.5 07/30/2021 7.5 04/09/2021 7.5 ) HTN: Without report headache, chest pain, palpitations, dyspnea, peripheral edema, orthopnea, fatigue and PND. Last 14 Encounter BP Readings: Date: BP: 07/15/2023 128/50 12/02/2022 142/68 06/18/2022 137/53 12/17/2021 128/52[checked 3 times; did deep breathing exercise prior[ 08/06/2021 156/55[average[ 04/16/2021 161/62[trubp average[ 11/27/2020 156/60 07/19/2020 122/72 05/30/2020 178/73 04/04/2020 130/60 03/27/2020 117/59 03/27/2020 186/62 03/14/2020 156/95 03/08/2020 136/54 Hyperlipidemia. Well controlled, no problems with medication. Her most recent lipid panels are: Cholesterol, Total (mg/dL) Date Value 12/11/2021 143 07/30/2021 116 02/14/2020 161 HDL Cholesterol (mg/dL) Date Value 12/11/2021 32 07/30/2021 29 02/14/2020 36 LDL Cholesterol (mg/dL) Date Value 12/11/2021 62 07/30/2021 43 02/14/2020 52 Triglyceride (mg/dL) Date Value 12/11/2021 243 07/30/2021 218 02/14/2020 366 Anemia: Taking iron every other day, doing well with this. Review of Systems Constitutional: Negative. Respiratory: Negative. Cardiovascular: Negative. Endocrine: Negative. Musculoskeletal: Positive for gait problem and myalgias. Objective BP 128/50 (BP Site: Right Arm, BP Position: Sitting, BP Cuff Size: Regular Adult) Pulse 98 Wt 45.1 kg (99 lb 6.4 oz) BMI (P) 19.41 kg/m Physical Exam Vitals and nursing note reviewed. Constitutional: Appearance: Normal appearance. HENT: Head: Normocephalic and atraumatic. Eyes: Conjunctiva/sclera: Conjunctivae normal. Cardiovascular: Rate and Rhythm: Normal rate and regular rhythm. Heart sounds: Normal heart sounds. Pulmonary: Effort: Pulmonary effort is normal. Breath sounds: Normal breath sounds. Abdominal: General: Bowel sounds are normal. Palpations: Abdomen is soft. Musculoskeletal: Right lower leg: No edema. Skin: General: Skin is warm and dry. Neurological: Mental Status: She is alert. Mental status is at baseline. ALLERGIES Allergen Reactions Alphagan [Brimonidi* Swelling, Itching Betoptic S [Betaxol* Swelling, Itching Keflex [Cephalexin] Rash Relafen [Nabumetone] Rash Medications: ascorbic acid, vitamin C, 500 mg cap Take 1,000 mg by mouth once daily. tamsulosin (FLOMAX) 0.4 mg Take 0.4 mg by mouth once daily. sucralfate (CARAFATE) 1 gram tablet Take 0.5 g by mouth. Take 1 hour before eating or 2 hours after you eat. simvastatin (ZOCOR) 10 mg tablet Take 1 tablet by mouth daily at bedtime. iron polysaccharide complex (FERREX 150) 150 mg iron capsule Take 1 capsule by mouth every other day. lancets (FREESTYLE LANCETS) 28 gauge Test blood sugar daily. Dx: Type 2 DM - Uncontrolled E11.65 Insulin: No blood sugar diagnostic (FREESTYLE LITE STRIPS) test strip Test blood sugar daily. Dx: Type 2 DM - Uncontrolled E11.65 Insulin: No Blood Pressure Cuff - Home Use BLOOD PRESSURE CUFF FOR HOME USE. DX: LABILE BLOOD PRESSURE latanoprost (XALATAN) 0.005 % ophthalmic solution Use 1 Drop in both eyes daily at bedtime. TO AFFECTED EYE(S) amLODIPine (NORVASC) 2.5 mg tablet Take 1 tablet by mouth once daily. DOSE CHANGE pantoprazole DR (PROTONIX) 40 mg tablet Take 1 tablet by mouth once daily. Take this, do not take omeprazole metoprolol tartrate, short acting, (LOPRESSOR) 50 mg tablet Take 1 tablet by mouth two times a day. DOSE CHANGE metFORMIN (GLUCOPHAGE) 500 mg tablet Take 1 tablet by mouth daily with breakfast. Only take if blood sugar 200 or greater. ASPIRIN 81 MG ORAL TAB Take one (1) tablet daily . (Patient not taking: Reported on 07/15/2023) 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 04/02/2007 Uric acid 5.8 in 03-01, 01-31 Intestinal adhesions (bands) with complete obstruction (HCC) 04/2019 Osteopenia Diagnosed on [facility] BMD in 2002; WNL since then Other abnormal blood chemistry 04/16/2005 Other and unspecified hyperlipidemia 04/16/2005 Type II or unspecified type diabetes mellitus without mention of complication, not stated as uncontrolled 04/16/2005 Unspecified essential hypertension 04/16/2005 Unspecified glaucoma(365.9) 04/16/2005 Social History Tobacco Use Smoking status: Former Packs/day: 1.00 Years: 15.00 Additional pack years: 0.00 Total pack years: 15.00 Types: Cigarettes Quit date: 08/12/1970 Years since quittin.9 Smokeless tobacco: Never Vaping Use Vaping Use: Never used Substance Use Topics Alcohol use: No Drug use: No ASSESSMENT/PLAN: 1. Hypoglycemia - ICD9: 251.2, ICD10: E16.2 (primary diagnosis) - HGB A1C - BASIC METABOLIC PNL 2. MERCEDES (acute kidney injury) (HCC) - ICD9: 584.9, ICD10: N17.9 - HGB A1C - BASIC METABOLIC PNL 3. Diarrhea, unspecified type - ICD9: 787.91, ICD10: R19.7 4. Debility - ICD9: 799.3, ICD10: R53.81 5. Type 2 diabetes mellitus with diabetic peripheral angiopathy without gangrene, without long-term current use of insulin (HCC) - ICD9: 250.70, 443.81, ICD10: E11.51 6. Hypertension goal BP (blood pressure) < 150/90 - ICD9: 401.9, ICD10: I10 controlled - AMLODIPINE 2.5 MG TABLET Blood pressure and heart rate are well-controlled with reduced dose of amlodipine and metoprolol. Continue unchanged for now. She has not been taking any diabetes medicine since discharge. Recommend taking 1 metformin daily for blood sugar 200 or greater, check blood sugar daily for a while until stable. Advised: Check your blood sugar once daily in the morning for now. If your blood sugar is 200 or greater take one 500 mg metformin with breakfast. If you are feeling ill with nausea vomiting diarrhea and are not eating do not take metformin. 3mo follow up Lia Guerrero APRN.CNS with labs 6 mos visit - MD Lia Sandhu APRN.CNS Medical Decision Making: Problems: Moderate: 1+ chronic illnesses with change Data: Unique source(s) for external note(s) reviewed: 1 Unique test result(s) reviewed: 3+ Risk: Moderate: Drug management Medical Decision Making Level: 4 - Moderate documented in this encounter [facility] 07-11-2023 Miscellaneous Notes Left detailed vm on identified vm with pcp verbal approval. Okay orders as noted Ronel from [facility] Home Health PT calling asking for verbal orders for skilled nurse and Social Work. Patient needs assist with medications and medication and disease education and what assistance is available. Please advise documented in this encounter [facility] 07-11-2023 Miscellaneous Notes Noted, okay Ronel, PT @ [facility] calling with plan of care. PT will see patient 1 x/week for one week and 2 x/week for four weeks for strength, gait and transfer training and fall prevention. If agree, no call back needed. Aria Avalos RN documented in this encounter [facility] 07-10-2023 Miscellaneous Notes Tried to call Ella, left detailed message on secure voicemail that provider willing to follow orders and if Ella has any questions to give nursing a call back. Adwoa Barajas RN Will follow Ella from [facility] calls and states that patient is being discharged from [facility] today with the diagnosis of acute kidney injury and hypoglycemia. Ella asking if provider willing to follow patient with orders for physical therapy and occupational therapy. Home Health planning to start care on 07/10/2023. If agreeable please give Ella a call back . Thank you, Adwoa Barajas, RN documented in this encounter [facility] 06-18-2023 Miscellaneous Notes Noted, agree Cecilia TAYLOR from [facility] calling in with plan for both OT and PT for pt. OT will be 2x per week for 3 weeks then 1x per week for 1 week. OT will be working on ADLs and transfers. PT will be 2x per week for 1 week, 3x per week for 1 week, then 2x per week for 2 weeks. PT working on mobility, strength and endurance. No need to return call. documented in this encounter [facility] 06-17-2023 Miscellaneous Notes Detailed message was left of approvals. Please return call with verbal ok for both requests. Thanks! Adwoa with [facility] Nursing calling with 3 items: Requesting approval of POC for patient to be seen by Nursing 2 times per week for 2 weeks and then 1 time per week for 2 weeks for wound mgmt. Reports patient has a new 1 cm x 1cm Stage I to coccyx. Asking for verbal order to cleanse wound, pat dry, apply foam dressing, change every 3 days. FYI: Pt will be seen by PT and OT as well. Please call Adwoa with reply to #1 and #2 at [phone]. Thank you. documented in this encounter [facility] 06-13-2023 Miscellaneous Notes Left detailed message on Rhona VM. [place] [facility] Rhona from [facility] HH calls and states that patient is being discharged from [facility] this weekend with the diagnosis of severe sepsis secondary to UTI. Rhona asking if provider willing to follow patient with orders for half-way, physical therapy, and occupational therapy. Rhona also asking for provider to ok start of care on 06/17/2023. If agreeable please give Rhona a call back [phone]. Thank you, Adwoa Barajas RN documented in this encounter [facility] 06-10-2023 Note HNO ID: [id number] Author: Ella Vitale Service: ? Author Type: ? Type: Progress Notes Filed: 06/10/2023 4:26 PM Note Text: POPULATION HEALTH NAVIGATION OUTREACH Action/ 1st attempt: Left message for patient including my direct number HCC GAPS E11.51 - Type 2 diabetes mellitus with diabetic peripheral angiopathy without gangrene, without long-term current use of insulin ([facility]) - [id number] Last Billed 06/18/2022 I73.9 - PAD (peripheral artery disease) ([facility]) - [id number] Last Billed 06/18/2022 E11.49 - Type 2 diabetes mellitus with neurologic complication, without long-term current use of insulin ([facility]) - [id number] Last Billed 06/18/2022 Care Gaps Annual Wellness visit Diabetic Eye Exam HBA1C Patient Identified by Name and : NO Outreach Outcome/Action Unable to reach patient: Left message Did you use a PCP flex slot to schedule this appointment? No Reason for Outreach HCC or suspected condition Payer: Payor: MEDICARE / Plan: MEDICARE A AND B / Product Type: Medicare / Care Gap Reviewed:: Annual Wellness visit Diabetic Eye Exam HBA1C Reminder: Reminder note to check Health Maintenance for items below Health Maintenance items due: Shingrix Vaccine(1 of 2) Never done Hepatitis B Vaccine(1 of 3 - Risk 3-dose series) Never done RSV Vaccine(1 - 1-dose 60+ series) Never done DTaP,Tdap,Td Vaccine(1 - Tdap) due on 07/26/2004 Dilated Retinal Exam due on 01/23/2020 Diabetic Foot Exam due on 05/21/2022 Advance Directive Discussion due on 08/25/2022 Depression Assessment due on 08/25/2022 HbA1C due on 12/10/2022 Urine Albumin:Creatinine Ratio due on 12/11/2022 LDL Cholesterol due on 12/11/2022 Covid-19 Vaccine( season) due on 04/25/2023 Navigation Signature: Ella Vitale June 10, 2023 4:25 PM [facility] 06-10-2023 History of Presen t illness Narrative POPULATION HEALTH NAVIGATION OUTREACH Action/ 1st attempt: Left message for patient including my direct number HCC GAPS E11.51 - Type 2 diabetes mellitus with diabetic peripheral angiopathy without gangrene, without long-term current use of insulin ([facility]) - [id number] Last Billed 06/18/2022 I73.9 - PAD (peripheral artery disease) ([facility]) - [id number] Last Billed 06/18/2022 E11.49 - Type 2 diabetes mellitus with neurologic complication, without long-term current use of insulin ([facility]) - [id number] Last Billed 06/18/2022 Care Gaps Annual Wellness visit Diabetic Eye Exam HBA1C Patient Identified by Name and : NO Outreach Outcome/Action Unable to reach patient: Left message Did you use a PCP flex slot to schedule this appointment? No Reason for Outreach HCC or suspected condition Payer: Payor: MEDICARE / Plan: MEDICARE A AND B / Product Type: Medicare / Care Gap Reviewed:: Annual Wellness visit Diabetic Eye Exam HBA1C Reminder: Reminder note to check Health Maintenance for items below Health Maintenance items due: Shingrix Vaccine(1 of 2) Never done Hepatitis B Vaccine(1 of 3 - Risk 3-dose series) Never done RSV Vaccine(1 - 1-dose 60+ series) Never done DTaP,Tdap,Td Vaccine(1 - Tdap) due on 07/26/2004 Dilated Retinal Exam due on 01/23/2020 Diabetic Foot Exam due on 05/21/2022 Advance Directive Discussion due on 08/25/2022 Depression Assessment due on 08/25/2022 HbA1C due on 12/10/2022 Urine Albumin:Creatinine Ratio due on 12/11/2022 LDL Cholesterol due on 12/11/2022 Covid-19 Vaccine( season) due on 04/25/2023 Navigation Signature: Ella Vitale June 10, 2023 4:25 PM documented in this encounter [facility] 06-10-2023 Note Patient Outreach (NE TNAV) VERONICA PELLETIER ([id number]) 1935 F Date Time Provider Department 06/10/23 ELLA VITALE NETNAV During your visit today, we recorded the following information about you: Ella Vitale 06/10/2023 4:26 PM Signed POPULATION HEALTH NAVIGATION OUTREACH Action/ attempt: Left message for patient including my direct number [facility] GAPS E11.51 - Type 2 diabetes mellitus with diabetic peripheral angiopathy without gangrene, without long-term current use of insulin ([facility]) - [id number] Last Billed 06/18/2022 I73.9 - PAD (peripheral artery disease) ([facility]) - [id number] Last Billed 06/18/2022 E11.49 - Type 2 diabetes mellitus with neurologic complication, without long-term current use of insulin ([facility]) - [id number] Last Billed 06/18/2022 Care Gaps Annual Wellness visit Diabetic Eye Exam HBA1C Patient Identified by Name and : NO Outreach Outcome/Action Unable to reach patient: Left message Did you use a PCP flex slot to schedule this appointment? No Reason for Outreach HCC or suspected condition Payer: Payor: MEDICARE / Plan: MEDICARE A AND B / Product Type: Medicare / Care Gap Reviewed:: Annual Wellness visit Diabetic Eye Exam HBA1C Reminder: Reminder note to check Health Maintenance for items below Health Maintenance items due: Shingrix Vaccine(1 of 2) Never done Hepatitis B Vaccine(1 of 3 - Risk 3-dose series) Never done RSV Vaccine(1 - 1-dose 60+ series) Never done DTaP,Tdap,Td Vaccine(1 - Tdap) due on 07/26/2004 Dilated Retinal Exam due on 01/23/2020 Diabetic Foot Exam due on 05/21/2022 Advance Directive Discussion due on 08/25/2022 Depression Assessment due on 08/25/2022 HbA1C due on 12/10/2022 Urine Albumin:Creatinine Ratio due on 12/11/2022 LDL Cholesterol due on 12/11/2022 Covid-19 Vaccine( season) due on 04/25/2023 Navigation Signature: Ella Vitale June 10, 2023 4:25 PM Allergies As of Date: 06/10/2023 Noted Allergy Reaction ALPHAGAN (BRIMONIDINE TARTRATE) 04/17/2005 7 - Swelling 9 - Itching BETOPTIC S (BETAXOLOL HCL) 04/17/2005 7 - Swelling 9 - Itching KEFLEX (CEPHALEXIN) 04/16/2005 2 - Rash RELAFEN (NABUMETONE) 04/16/2005 2 - Rash Date Reviewed: 12/02/2022 Reviewed by: Grecia Kruse LPN - Fully Assessed Reason for Visit: Population Health Navigation Outreach [3910] Cmt: HCC Gaps Prescriptions as of 06/10/2023 - amLODIPine (NORVASC) 10 mg tablet Take 1 tablet by mouth once daily. DOSE CHANGE - TAKE ONE 10mg TAB DAILY - glimepiride (AMARYL) 2 mg tablet Take 1 tablet by mouth daily with breakfast. As directed - omeprazole (PRILOSEC) 40 mg capsule Take 1 capsule by mouth once daily. - simvastatin (ZOCOR) 10 mg tablet Take 1 tablet by mouth daily at bedtime. - losartan (COZAAR) 100 mg tablet Take 1 tablet by mouth once daily. - metoprolol tartrate, short acting, (LOPRESSOR) 100 mg tablet Take 2 tablets by mouth twice daily. - metFORMIN (GLUCOPHAGE) 500 mg tablet Take 2 tablets by mouth twice daily. - iron polysaccharide complex (FERREX 150) 150 mg iron capsule Take 1 capsule by mouth every other day. - lancets (FREESTYLE LANCETS) 28 gauge Test blood sugar daily. Dx: Type 2 DM - Uncontrolled E11.65 Insulin: No - blood sugar diagnostic (FREESTYLE LITE STRIPS) test strip Test blood sugar daily. Dx: Type 2 DM - Uncontrolled E11.65 Insulin: No - Blood Pressure Cuff - Home Use BLOOD PRESSURE CUFF FOR HOME USE. DX: LABILE BLOOD PRESSURE - latanoprost (XALATAN) 0.005 % ophthalmic solution Use 1 Drop in both eyes daily at bedtime. TO AFFECTED EYE(S) - ASPIRIN 81 MG ORAL TAB Take one (1) tablet daily . 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] 02/20/2009 Hypertension goal BP (blood pressure) < 150/90 *01/24/2014 Ulcer of toe of left foot (HCC) [L97.529] 11/20/2019 12/13/2021 Ulcer of left foot (HCC) [L97.529] 11/20/2019 12/13/2021 Ulcer of left heel (HCC) [L97.429] 11/20/2019 12/13/2021 Albuminuria [R80.9] 08/27/2020 Hyponatremia [E87.1] 08/27/2020 Type 2 diabetes mellitus with neurologic compli*08/27/2020 PAD (peripheral artery disease) (HCC) [I73.9] 12/13/2021 Encounter Status:Closed by ELLA VITALE on 06/10/23 [facility] 04-24-2023 Miscellaneous Notes Patient notified of providers message and verbalized understanding. Sorry did not see this right away. See how patient is doing. Can extend but if symptoms not resolving with this, would repeat urin studies to see if anything has changed and see whether bacteria has gotten resistant to macrobid The following approved medication requests have been transmitted electronically. Requested Prescriptions Signed Prescriptions Disp Refills nitrofurantoin monohydrate and macrocrystal (MACROBID) 100 mg capsule 14 capsule 0 Sig: Take 1 capsule by mouth twice daily with meals for 7 days. Reese Sharif MD Patient checking on status. Veronica Pelletier is calling Reese Sharif MD today with concern regarding UTI (Not resolved totally patient asking for a little more antibiotic to get it totally gone) patient states it has eased some but not totally. Please call her back . Patient has been identified by name and birthdate. Duration of symptoms: 2 weeks Person calling: self Call patient at: at home [phone] (home) [phone] (cell) Was an appointment scheduled: No Closing statement: Symptom Call: Thank you for calling [facility], your call is very important. A nurse will call in approximately 2-4 hours during business hours. If this is an emergency, please contact 911. Rossy Elder documented in this encounter [facility] 03-31-2023 Miscellaneous Notes Patient notified of providers message and verbalized understanding. Patient will call back to schedule once she knows what day her daughter has off. Will treat given issues with transportation plus history of UTI and DM. Needs follow up since canceled January appointment though. See if needs help coordinating transportation and appointment. Should get urine studies done if gets another UTI within the next 6 months. Labs updated so may due anytime in next 2 months. Can change to nonfasting lipid if not able to come in fasting The following approved medication requests have been transmitted electronically. Requested Prescriptions Signed Prescriptions Disp Refills nitrofurantoin monohydrate and macrocrystal (MACROBID) 100 mg capsule 14 capsule 0 Sig: Take 1 capsule by mouth twice daily with meals for 7 days. Authorizing Provider: REESE SHARIF MD Patient calling with concern that she may have a urinary tract infection. Asking if provider would order that medicine that was ordered last time for UTI. Per record, Macrobid was ordered for patient in 11/2020.Pt's 6 month F/U appt on 02/17 was cancelled by patient. No new appt has been scheduled as of yet. Reports: -urinary frequency that began 1-2 weeks ago -discomfort when urinating that began 3-4 days ago, feels achey when urinate -is a diabetic -denies back pain or flank pain -denies fever, sweats or chills -denies N/V -denies visible blood in urine -denies abdominal pain -reports drinking plenty of water/fluids Reports she does not have transportation at this time. Unable to do virtual appt. States she may have transportation this evening and may be able to be evaluated at [facility] this evening but she is not sure. States she most likely won't have transportation until Monday 04/02. Pt asking if Dr. Sharif could help her today, without appt. Please advise patient. Thank you. documented in this encounter [facility] 02-27-2023 Miscellaneous Notes DELMIS: 12/02/2022 Last refill: 02/20/2022 QTY: 90 Refills: 3 Patient phones requesting refills as follows: Requested Prescriptions Pending Prescriptions Disp Refills amLODIPine (NORVASC) 10 mg tablet 90 tablet 3 Sig: Take 1 tablet by mouth once daily. DOSE CHANGE - TAKE ONE 10mg TAB DAILY Please review and advise. Gaetano Angel Ma Patient has been identified by name and date of : Yes Requested Prescriptions Pending Prescriptions Disp Refills amLODIPine (NORVASC) 10 mg tablet 90 tablet 3 Sig: Take 1 tablet by mouth once daily. DOSE CHANGE - TAKE ONE 10mg TAB DAILY RX INSTRUCTIONS: Patient aware RX will be sent to pharmacy. No need to notify patient. Zarina Elder documented in this encounter [facility] 12-02-2022 Note HNO ID: [id number] Author: Reese Sharif MD Service: ? Author Type: Physician Type: Progress Notes Filed: 12/04/2022 10:43 AM Note Text: This note was created using [employer]. Subjective Veronica Pelletier is a 87 year old female. Patient presents with: Established Patient: X 8-12 months sore area on nose SUBJECTIVE: Veronica Pelletier is a 87 year old year old lady here today for follow up appointment for review of medical conditions: skin lesion on nose. Noted lesion on nose that probably started 8 t o12 months ago and got larger. Non-healing wound. Has applied vaseline on a bandaid and leaves this all day and night. Softens to crust and that comes off when takes of bandaid. Changes twice per day (AM and bedtime). Has seen Dr. Ok Smart about 4 years ago for precancerous lesion on forehead and forearms. Blood sugar log October--range 119 to 190 with most in 110 to 150 range; fasting glucose around 3 to 4 AM when she gets up with daughter to have breakfast together before goes to work. 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 losartan (COZAAR) 100 mg tablet Take 1 tablet by mouth once daily. metoprolol tartrate, short acting, (LOPRESSOR) 100 mg tablet Take 2 tablets by mouth twice daily. metFORMIN (GLUCOPHAGE) 500 mg tablet Take 2 tablets by mouth twice daily. amLODIPine (NORVASC) 10 mg tablet Take 1 tablet by mouth once daily. DOSE CHANGE - TAKE ONE 10mg TAB DAILY iron polysaccharide complex (FERREX 150) 150 mg iron capsule Take 1 capsule by mouth every other day. omeprazole (PRILOSEC) 40 mg capsule Take 1 capsule by mouth once daily. glimepiride (AMARYL) 2 mg tablet Take 1 tablet by mouth daily with breakfast. As directed lancets (FREESTYLE LANCETS) 28 gauge Test blood sugar daily. Dx: Type 2 DM - Uncontrolled E11.65 Insulin: No blood sugar diagnostic (FREESTYLE LITE STRIPS) test strip Test blood sugar daily. Dx: Type 2 DM - Uncontrolled E11.65 Insulin: No Blood Pressure Cuff - Home Use BLOOD PRESSURE CUFF FOR HOME USE. DX: LABILE BLOOD PRESSURE latanoprost (XALATAN) 0.005 % ophthalmic solution Use 1 Drop in both eyes daily at bedtime. TO AFFECTED EYE(S) ASPIRIN 81 MG ORAL TAB Take one (1) tablet daily . No current facility-administered medications for this visit. Does not hurt ir itch. Review of Systems Objective BP 142/68 Pulse 91 Temp 36.4 ?C (97.6 ?F) Resp 18 Wt 53.5 kg (118 lb) SpO2 97% BMI (P) 23.05 kg/m? Physical Exam HENT: Nose: Hemoglobin A1C (%) Date Value 06/11/2022 7.5 12/11/2021 7.5 07/30/2021 7.5 04/09/2021 7.5 11/20/2020 7.5 07/24/2020 8.7 02/14/2020 8.1 Assessment and Plan Encounter Diagnosis ICD-10-CM 1. Non-healing skin lesion of nose L98.9 CONSULT TO DERMATOLOGY 2. Controlled type 2 diabetes mellitus without complication, without long-term current use of insulin (HCC) E11.9 glimepiride (AMARYL) 2 mg tablet Above issues addressed with patient. Patient involved in shared decision making for management of medical issues. History and medications reviewed. Epic updated as needed Refills and/or prescriptions taken care of and meds adjusted as indicated after reviewed history, exam and labs. Health Maintenance reviewed. Updated record and/or ordered tests as recorded. Encouraged on efforts at healthy diet and regular exercise and adequate sleep. Sugars pretty well controlled. Continue present management. Will refer to Dr. Ok Smart for non-healing skin lesion on nose. Had prior precancerous skin lesion and is fare skinned with blue eyes. Reese Sharif MD [facility] 12-02-2022 History of Presen t illness Narrative Images from the original note were not included. This note was created using [employer]. Subjective Veronica Pelletier is a 87 year old female. Patient presents with: Established Patient: X 8-12 months sore area on nose SUBJECTIVE: Veronica Pelletier is a 87 year old year old lady here today for follow up appointment for review of medical conditions: skin lesion on nose. Noted lesion on nose that probably started 8 t o12 months ago and got larger. Non-healing wound. Has applied vaseline on a bandaid and leaves this all day and night. Softens to crust and that comes off when takes of bandaid. Changes twice per day (AM and bedtime). Has seen Dr. Ok Smart about 4 years ago for precancerous lesion on forehead and forearms. Blood sugar log October--range 119 to 190 with most in 110 to 150 range; fasting glucose around 3 to 4 AM when she gets up with daughter to have breakfast together before goes to work. 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 losartan (COZAAR) 100 mg tablet Take 1 tablet by mouth once daily. metoprolol tartrate, short acting, (LOPRESSOR) 100 mg tablet Take 2 tablets by mouth twice daily. metFORMIN (GLUCOPHAGE) 500 mg tablet Take 2 tablets by mouth twice daily. amLODIPine (NORVASC) 10 mg tablet Take 1 tablet by mouth once daily. DOSE CHANGE - TAKE ONE 10mg TAB DAILY iron polysaccharide complex (FERREX 150) 150 mg iron capsule Take 1 capsule by mouth every other day. omeprazole (PRILOSEC) 40 mg capsule Take 1 capsule by mouth once daily. glimepiride (AMARYL) 2 mg tablet Take 1 tablet by mouth daily with breakfast. As directed lancets (FREESTYLE LANCETS) 28 gauge Test blood sugar daily. Dx: Type 2 DM - Uncontrolled E11.65 Insulin: No blood sugar diagnostic (FREESTYLE LITE STRIPS) test strip Test blood sugar daily. Dx: Type 2 DM - Uncontrolled E11.65 Insulin: No Blood Pressure Cuff - Home Use BLOOD PRESSURE CUFF FOR HOME USE. DX: LABILE BLOOD PRESSURE latanoprost (XALATAN) 0.005 % ophthalmic solution Use 1 Drop in both eyes daily at bedtime. TO AFFECTED EYE(S) ASPIRIN 81 MG ORAL TAB Take one (1) tablet daily . No current facility-administered medications for this visit. Does not hurt ir itch. Review of Systems Objective BP 142/68 Pulse 91 Temp 36.4 C (97.6 F) Resp 18 Wt 53.5 kg (118 lb) SpO2 97% BMI (P) 23.05 kg/m Physical Exam HENT: Nose: Hemoglobin A1C (%) Date Value 06/11/2022 7.5 12/11/2021 7.5 07/30/2021 7.5 04/09/2021 7.5 11/20/2020 7.5 07/24/2020 8.7 02/14/2020 8.1 Assessment and Plan Encounter Diagnosis ICD-10-CM 1. Non-healing skin lesion of nose L98.9 CONSULT TO DERMATOLOGY 2. Controlled type 2 diabetes mellitus without complication, without long-term current use of insulin (HCC) E11.9 glimepiride (AMARYL) 2 mg tablet Above issues addressed with patient. Patient involved in shared decision making for management of medical issues. History and medications reviewed. Epic updated as needed Refills and/or prescriptions taken care of and meds adjusted as indicated after reviewed history, exam and labs. Health Maintenance reviewed. Updated record and/or ordered tests as recorded. Encouraged on efforts at healthy diet and regular exercise and adequate sleep. Sugars pretty well controlled. Continue present management. Will refer to Dr. Ok Smart for non-healing skin lesion on nose. Had prior precancerous skin lesion and is fare skinned with blue eyes. Reese Sharif MD documented in this encounter [facility] 06-18-2022 Miscellaneous Notes CBC and extra PTH intact, phosphorus, vitamin D 25, ionized calcium Linda Kramer MD Please advise if labs are needed for consult w/ Dr. Kramer. Adwoa Garcia Patient notified of results and provider's instructions. Patient verbalizes understanding. Please contact pt to arrange hematology consult. Linnea Morales LPN Touched base with hem/onc and recommended work up for multiple myeloma given persistent elevated calcium level. Referral/consult filed. Please call patient to let her know recommendation and assist with making appointment . documented in this encounter [facility] 06-18-2022 Instructions Lia Guerrero APRN.PAULIE - 06/18/2022 9:05 AM EDT Schedule appointment with Dr See documented in this encounter [facility] 06-18-2022 History of Presen t illness Narrative SUBJECTIVE: DILATED RETINAL EXAM due on 01/23/2020 ADVANCE DIRECTIVE DISCUSSION Never done DEPRESSION ASSESSMENT Never done INFLUENZA(1) due on 04/25/2022 HPI Veronica Pelletier is a 87 year old female. PMH significant for ACTIVE PROBLEM LIST Type 2 Diabetes Mellitus With Diabetic Peripheral Angiopathy Without Gangrene, Without Long-Term Current Use of Insulin (Hcc) Unspecified Glaucoma Hyperlipidemia Iron Deficiency Anemia, Unspecified Other Vitamin B12 Deficiency Anemia Diverticulosis of Colon (Without Mention of Hemorrhage) Periodic Limb Movement Disorder Hypertension Goal Bp (Blood Pressure) < 150/90 Albuminuria Hyponatremia Type 2 Diabetes Mellitus With Neurologic Complication, Without Long-Term Current Use of Insulin (Hcc) Pad (Peripheral Artery Disease) (Hcc) Today notes she is in her usual state of health. She notes no open sores on feet, followed by podiatry. Last seen 04/2021. Walking with cane. Notes difficulty walking long distances. Able to walk around her home, fairly sedentary. Does not routinely complete HEP. Defers follow up with Dr Ivey at this time re: PAD. Notes legs feel tired when she walks. DIABETES MELLITUS: Home blood sugar readings from 139-209 fasting. Notes occasional dietary indiscretions but overall adhering to DM diet. She is without report of excessive thirst or increased frequency of urination, chest pain or dyspnea , numbness, tingling or pain in extremities, new or unusual visual symptoms, low sugar/hypoglycemic reactions, weight loss/gain, lightheadedness/dizziness and bowel changes/loose stools. Patient's last HgA1C was Hemoglobin A1C (%) Date Value 06/11/2022 7.5 12/11/2021 7.5 07/30/2021 7.5 04/09/2021 7.5 ) Dr. See in [place] eye doctor, overdue for follow up. HTN: Without report headache, chest pain, palpitations, dyspnea, peripheral edema, orthopnea, fatigue and PND. Last 14 Encounter BP Readings: Date: BP: 06/18/2022 137/53 12/17/2021 128/52[checked 3 times; did deep breathing exercise prior[ 08/06/2021 156/55[average[ 04/16/2021 161/62[trubp average[ 11/27/2020 156/60 07/19/2020 122/72 05/30/2020 178/73 04/04/2020 130/60 03/27/2020 117/59 03/27/2020 186/62 03/14/2020 156/95 03/08/2020 136/54 03/07/2020 174/73 02/22/2020 209/81 Hyperlipidemia. Well controlled, no problems with medication. Her most recent lipid panels are: Cholesterol, Total (mg/dL) Date Value 12/11/2021 143 07/30/2021 116 02/14/2020 161 HDL Cholesterol (mg/dL) Date Value 12/11/2021 32 07/30/2021 29 02/14/2020 36 LDL Cholesterol (mg/dL) Date Value 12/11/2021 62 07/30/2021 43 02/14/2020 52 Triglyceride (mg/dL) Date Value 12/11/2021 243 07/30/2021 218 02/14/2020 366 Anemia: Taking iron every other day, doing well with this. Review of Systems Constitutional: Negative. Respiratory: Negative. Cardiovascular: Negative. Endocrine: Negative. Musculoskeletal: Positive for gait problem and myalgias. Objective BP 137/53 Pulse 77 Resp 16 Wt 53.1 kg (117 lb) BMI (P) 22.85 kg/m Physical Exam Vitals and nursing note reviewed. Constitutional: Appearance: Normal appearance. HENT: Head: Normocephalic and atraumatic. Eyes: Conjunctiva/sclera: Conjunctivae normal. Cardiovascular: Rate and Rhythm: Normal rate and regular rhythm. Heart sounds: Normal heart sounds. Pulmonary: Effort: Pulmonary effort is normal. Breath sounds: Normal breath sounds. Abdominal: General: Bowel sounds are normal. Palpations: Abdomen is soft. Musculoskeletal: Right lower leg: No edema. Skin: General: Skin is warm and dry. Neurological: Mental Status: She is alert. Mental status is at baseline. ALLERGIES Allergen Reactions Alphagan [Brimonidi* Swelling, Itching Betoptic S [Betaxol* Swelling, Itching Keflex [Cephalexin] Rash Relafen [Nabumetone] Rash Medications: amLODIPine (NORVASC) 10 mg tablet Take 1 tablet by mouth once daily. DOSE CHANGE - TAKE ONE 10mg TAB DAILY iron polysaccharide complex (FERREX 150) 150 mg iron capsule Take 1 capsule by mouth every other day. omeprazole (PRILOSEC) 40 mg capsule Take 1 capsule by mouth once daily. glimepiride (AMARYL) 2 mg tablet Take 1 tablet by mouth daily with breakfast. As directed lancets (FREESTYLE LANCETS) 28 gauge Test blood sugar daily. Dx: Type 2 DM - Uncontrolled E11.65 Insulin: No blood sugar diagnostic (FREESTYLE LITE STRIPS) test strip Test blood sugar daily. Dx: Type 2 DM - Uncontrolled E11.65 Insulin: No Blood Pressure Cuff - Home Use BLOOD PRESSURE CUFF FOR HOME USE. DX: LABILE BLOOD PRESSURE latanoprost (XALATAN) 0.005 % ophthalmic solution Use 1 Drop in both eyes daily at bedtime. TO AFFECTED EYE(S) ASPIRIN 81 MG ORAL TAB Take one (1) tablet daily . simvastatin (ZOCOR) 10 mg tablet Take 1 tablet by mouth daily at bedtime. losartan (COZAAR) 100 mg tablet Take 1 tablet by mouth once daily. metoprolol tartrate, short acting, (LOPRESSOR) 100 mg tablet Take 2 tablets by mouth twice daily. metFORMIN (GLUCOPHAGE) 500 mg tablet Take 2 tablets by mouth twice daily. 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 04/02/2007 Uric acid 5.8 in 03-01, 01-31 Intestinal adhesions (bands) with complete obstruction (HCC) 04/2019 Osteopenia Diagnosed on [facility] BMD in 2002; WNL since then Other abnormal blood chemistry 04/16/2005 Other and unspecified hyperlipidemia 04/16/2005 Type II or unspecified type diabetes mellitus without mention of complication, not stated as uncontrolled 04/16/2005 Unspecified essential hypertension 04/16/2005 Unspecified glaucoma(365.9) 04/16/2005 Social History Tobacco Use Smoking status: Former Packs/day: 1.00 Years: 15.00 Pack years: 15.00 Types: Cigarettes Quit date: 08/12/1970 Years since quittin.8 Smokeless tobacco: Never Vaping Use Vaping Use: Never used Substance Use Topics Alcohol use: No Drug use: No Component Latest Ref Rng & Units 06/11/2022 06/11/2022 06/11/2022 7:08 AM 7:08 AM 7:18 AM WBC 3.70 - 11.00 k/uL 9.54 RBC 3.90 - 5.20 m/uL 3.95 Hemoglobin 11.5 - 15.5 g/dL 11.8 Hematocrit 36.0 - 46.0 % 38.1 MCV 80.0 - 100.0 fL 96.5 MCH 26.0 - 34.0 pg 29.9 MCHC 30.5 - 36.0 g/dL 31.0 RDW-CV 11.5 - 15.0 % 14.2 Platelet Count 150 - 400 k/uL 409 (H) MPV 9.0 - 12.7 fL 10.2 Neut% % 68.6 Abs Neut (ANC) 1.45 - 7.50 k/uL 6.55 Lymph% % 21.5 Abs Lymph 1.00 - 4.00 k/uL 2.05 [place]% % 8.0 Abs [place] <0.87 k/uL 0.76 Eosin% % 1.2 Abs Eosin <0.46 k/uL 0.11 Baso% % 0.4 Abs Baso <0.11 k/uL 0.04 Immature Gran % % 0.3 IMMATURE GRANS (ABS) <0.10 k/uL 0.03 NRBC /100 WBC 0.0 Absolute nRBC <0.01 k/uL <0.01 DTYPE Auto Protein, Total 6.3 - 8.0 g/dL 8.4 (H) 8.4 (H) Albumin 3.9 - 4.9 g/dL 4.7 Calcium 8.5 - 10.2 mg/dL 10.6 (H) Bilirubin, Total 0.2 - 1.3 mg/dL 0.3 Alkaline Phosphatase 34 - 123 U/L 85 AST 13 - 35 U/L 15 ALT 7 - 38 U/L 17 Glucose 74 - 99 mg/dL 218 (H) BUN 7 - 21 mg/dL 17 Creatinine 0.58 - 0.96 mg/dL 0.80 Sodium 136 - 144 mmol/L 136 Potassium 3.7 - 5.1 mmol/L 5.1 Chloride 97 - 105 mmol/L 98 CO2 22 - 30 mmol/L 26 Anion Gap 9 - 18 mmol/L 12 eGFR >=60 mL/min/1.73m 72 Albumin 3.37 - 4.23 g/dL 3.93 Alpha 1 Globulin 0.18 - 0.31 g/dL 0.22 Alpha 2 Globulin 0.52 - 0.97 g/dL 1.26 (H) Beta Globulin 0.84 - 1.36 g/dL 1.39 (H) Gamma Globulin 0.70 - 1.44 g/dL 1.59 (H) Interpretation (Prot Electro) No definitive M protein is identified on protein electrophoresis. No definitive M protein is identified on protein electrophoresis. M-Protein Location M-Protein Concentration <=0.00 g/dL 0.00 SPE Staff Review Reviewed by Jessenia Miller MD Protein, Urine Random 0 - 20 mg/dL 115 (H) Creatinine, Ur Random (UCRR) 20.0 - 300.0 mg/dL 14.8 (L) Protein/Creat Ratio <0.15 mg/mg 7.77 (H) IgG 700 - 1,600 mg/dL 1,302 IgA 70 - 400 mg/dL 715 (H) IgM 40 - 230 mg/dL 32 (L) MPA Result No M protein is identified. A poorly defined region of restricted mobility is present that may represent an M protein. (A) Interpretation (MPA) Poorly defined region of restricted mobility in IgG and kappa lanes. Pattern is less well defined or fainter than typically seen in monoclonal gammopathy. This could represent either an atypical presentation of polyclonal immunoglobulins or the presence of a low level IgG kappa monoclonal gammopathy. If clinically indicated, urine monoclonal protein analysis and serum free light chain measurements are recommended to evaluate further for monoclonal gammopathy. Clinical correlation is necessary. Staff Review (MPA) Reviewed by Jessenia Miller MD [place] Free, Serum 3.3 - 19.4 mg/L 54.9 (H) Lambda Free, Serum 5.7 - 26.3 mg/L 22.6 K/L Ratio, Serum 0.26 - 1.65 2.43 (H) Hemoglobin A1C 4.3 - 5.6 % 7.5 (H) Estimated Average Glucose mg/dL 169 ASSESSMENT/PLAN: 1. Controlled type 2 diabetes mellitus without complication, without long-term current use of insulin (HCC) - ICD9: 250.00, ICD10: E11.9 (primary diagnosis) Controlled. 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 Mixed hyperlipidemia - ICD9: 272.2, ICD10: E78.2 Controlled, continue unchanged, continue to monitor - COMP METABOLIC PANEL - CBC + DIFF - HGB A1C - COMP METABOLIC PANEL 3. Hypertension goal BP (blood pressure) < 150/90 - ICD9: 401.9, ICD10: I10 Controlled, continue unchanged, continue to monitor - CBC + DIFF - COMP METABOLIC PANEL - CBC + DIFF - HGB A1C - COMP METABOLIC PANEL 4. Screening for diabetic retinopathy - ICD9: V80.2, ICD10: Z13.5 To follow up with Dr See 5. Encounter for immunization - ICD9: V03.89, ICD10: Z23 - INFLUENZA SEASONAL QUADRIVALENT HIGH DOSE AGE 65+ 6. Iron deficiency anemia, unspecified iron deficiency anemia type - ICD9: 280.9, ICD10: D50.9 Stable, currently controlled, continue to monitor. Taking iron QOD 7. Hyponatremia - ICD9: 276.1, ICD10: E87.1 8. Other vitamin B12 deficiency anemia - ICD9: 281.1, ICD10: D51.8 9. Albuminuria - ICD9: 791.0, ICD10: R80.9 6 mos with labs prior to visit - MD Lia Sandhu APRN.RIVETER Medical Decision Making: Problems: Moderate: 2+ stable chronic illnesses Data: Unique test(s) ordered: 3+ Risk: Moderate: Drug management Medical Decision Making Level: 4 - Moderate documented in this encounter [facility] 02-19-2022 Miscellaneous Notes Last OV: 12/17/2021 Next OV: 06/18/2022 Patient has been identified by name and date of : Yes Pending Prescriptions Disp Refills AMLODIPINE 10 MG TABLET 90 tablet 3 Sig: Take 1 tablet by mouth once daily. DOSE CHANGE - TAKE ONE 10mg TAB DAILY ABBY: No POLYSACCHARIDE IRON COMPLEX 150 MG IRON CAPSULE 90 capsule 3 Sig: Take 1 capsule by mouth every other day. ABBY: No RX INSTRUCTIONS: Patient aware RX will be sent to pharmacy. No need to notify patient. Zari Wilks Pss documented in this encounter [facility] 12-17-2021 History of Presen t illness Narrative This note was created using [employer]. Subjective Veronica Pelletier is a 86 year old female. Patient presents with: Follow Up SUBJECTIVE: Veronica Pelletier is a 86 year old year old lady here today for 4 month follow up appointment for review of medical conditions. BP still runs 150s at home. No drops in sugars. range in october was 140 to 199 with most recent ones 140 to 165 with most in 140s range. Will rescheduled eye appointment. Gets at least 4 cups of water in daily. Gets water 2 cups over the course of the day. 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 04/02/2007 Uric acid 5.8 in 03-01, 01-31 Intestinal adhesions (bands) with complete obstruction (HCC) 04/2019 Osteopenia Diagnosed on [facility] BMD in 2002; WNL since then Other abnormal blood chemistry 04/16/2005 Other and unspecified hyperlipidemia 04/16/2005 Type II or unspecified type diabetes mellitus without mention of complication, not stated as uncontrolled 04/16/2005 Unspecified essential hypertension 04/16/2005 Unspecified glaucoma(365.9) 04/16/2005 Current Outpatient Medications Medication Sig iron polysaccharide complex (FERREX 150) 150 mg iron capsule Take 1 capsule by mouth once daily. (Patient taking differently: Take 150 mg by mouth every other day. ) omeprazole (PRILOSEC) 40 mg capsule Take 1 capsule by mouth once daily. glimepiride (AMARYL) 2 mg tablet Take 1 tablet by mouth daily with breakfast. As directed lancets (FREESTYLE LANCETS) 28 gauge Test blood sugar daily. Dx: Type 2 DM - Uncontrolled E11.65 Insulin: No blood sugar diagnostic (FREESTYLE LITE STRIPS) test strip Test blood sugar daily. Dx: Type 2 DM - Uncontrolled E11.65 Insulin: No simvastatin (ZOCOR) 10 mg tablet Take 1 tablet by mouth daily at bedtime. losartan (COZAAR) 100 mg tablet Take 1 tablet by mouth once daily. metoprolol tartrate, short acting, (LOPRESSOR) 100 mg tablet Take 2 tablets by mouth twice daily. metFORMIN (GLUCOPHAGE) 500 mg tablet Take 2 tablets by mouth twice daily. amLODIPine (NORVASC) 10 mg tablet Take 1 tablet by mouth once daily. DOSE CHANGE - TAKE ONE 10mg TAB DAILY Blood Pressure Cuff - Home Use BLOOD PRESSURE CUFF FOR HOME USE. DX: LABILE BLOOD PRESSURE latanoprost (XALATAN) 0.005 % ophthalmic solution Use 1 Drop in both eyes daily at bedtime. TO AFFECTED EYE(S) ASPIRIN 81 MG ORAL TAB Take one (1) tablet daily . No current facility-administered medications for this visit. Review of Systems Objective BP 152/70 Pulse 84 Wt 53.1 kg (117 lb) BMI (P) 22.85 kg/m Last 5 Encounter Wt Readings: Date: Wt: 12/17/2021 53.1 kg (117 lb) 08/06/2021 52.6 kg (116 lb) 04/16/2021 53.1 kg (117 lb) 11/27/2020 52.2 kg (115 lb) 07/26/2020 51.3 kg (113 lb) No waist measurement recorded Estimated body mass index is 22.85 kg/m (pended) as calculated from the following: Height as of 04/04/20: (P) 152.4 cm (5'). Weight as of this encounter: 53.1 kg (117 lb). Last 5 Encounter BP Readings: Date: BP: 12/17/2021 152/70 08/06/2021 156/55[average[ 04/16/2021 161/62[trubp average[ 11/27/2020 156/60 07/19/2020 122/72 12/17/21 0849 12/17/21 0922 BP: 152/70 128/52 Pulse: 84 Weight: 53.1 kg (117 lb) Physical Exam Constitutional: Appearance: Normal appearance. HENT: Head: Normocephalic. Eyes: Conjunctiva/sclera: Conjunctivae normal. Cardiovascular: Rate and Rhythm: Normal rate and regular rhythm. Heart sounds: Normal heart sounds. Pulmonary: Effort: Pulmonary effort is normal. Breath sounds: Normal breath sounds. Skin: General: Skin is warm and dry. Neurological: General: No focal deficit present. Mental Status: She is alert and oriented to person, place, and time. Psychiatric: Mood and Affect: Mood normal. Behavior: Behavior normal. Thought Content: Thought content normal. Judgment: Judgment normal. Component Latest Ref Rng & Units 11/20/2020 04/09/2021 07/30/2021 12/11/2021 WBC 3.70 - 11.00 k/uL 8.17 8.26 RBC 3.90 - 5.20 m/uL 4.03 3.67 (L) Hemoglobin 11.5 - 15.5 g/dL 11.7 11.2 (L) Hematocrit 36.0 - 46.0 % 38.3 35.7 (L) MCV 80.0 - 100.0 fL 95.0 97.3 MCH 26.0 - 34.0 pG 29.0 30.5 MCHC 30.5 - 36.0 g/dL 30.5 31.4 RDW-CV 11.5 - 15.0 % 13.3 14.9 Platelet Count 150 - 400 k/uL 338 343 MPV 9.0 - 12.7 fL 10.2 10.3 Neut% % 66.4 Abs Neut (ANC) 1.45 - 7.50 k/uL 5.46 Lymph% % 24.9 Abs Lymph 1.00 - 4.00 k/uL 2.06 [place]% % 7.0 Abs [place] <0.87 k/uL 0.58 Eosin% % 1.2 Abs Eosin <0.46 k/uL 0.10 Baso% % 0.5 Abs Baso <0.11 k/uL 0.04 Nucleated Reds 0 /100 WBC 0.0 Absolute nRBC <0.01 k/uL <0.01 <0.01 Diff Type Auto Diff Protein, Total 6.3 - 8.0 g/dL 8.3 (H) 9.0 (H) Albumin 3.9 - 4.9 g/dL 4.6 4.6 Calcium 8.5 - 10.2 mg/dL 9.8 9.8 10.3 (H) Bilirubin, Total 0.2 - 1.3 mg/dL 0.3 0.3 Alkaline Phosphatase 34 - 123 U/L 75 75 AST 13 - 35 U/L 12 (L) 21 Glucose 74 - 99 mg/dL 184 (H) 250 (H) 189 (H) BUN 7 - 21 mg/dL 17 15 21 Creatinine 0.58 - 0.96 mg/dL 0.74 0.81 0.86 Sodium 136 - 144 mmol/L 134 (L) 137 137 Potassium 3.7 - 5.1 mmol/L 5.0 4.4 4.6 Chloride 97 - 105 mmol/L 98 98 98 CO2 22 - 30 mmol/L 24 23 23 Anion Gap 9 - 18 mmol/L 12 16 16 ALT 7 - 38 U/L 14 19 eGFR- >60 >60 eGFR-All Other Races . >60 >60 eGFR >=60 mL/min/1.73m 66 Cholesterol, Total <200 mg/dL 116 143 Triglyceride <150 mg/dL 218 (H) 243 (H) HDL Cholesterol >39 mg/dL 29 (L) 32 (L) LDL Cholesterol <100 mg/dL 43 62 Non HDL Cholesterol <130 mg/dL 87 111 Fasting Time hrs 12 13 VLDL Cholesterol <30 mg/dL 44 (H) 49 (H) TC:HDL Ratio <5.10 4.00 4.47 LDL:HDL Ratio <2.54 1.48 1.94 Creatinine, Ur Random (UCRR) 20.0 - 300.0 mg/dL 6.6 (L) 25.9 Albumin, Urine Random mg/L 305.2 937.9 Albumin/Creat Ratio <30 mg/g 4,624 (H) 3,621 (H) Hemoglobin A1C 4.3 - 5.6 % 7.5 (H) 7.5 (H) 7.5 (H) 7.5 (H) Estimated Average Glucose mg/dL 169 169 169 169 Assessment and Plan ASSESSMENT/PLAN: 1. Type 2 diabetes mellitus with other neurologic complication, without long-term current use of insulin ([facility]) - ICD9: 250.60, ICD10: E11.49 (primary diagnosis) Controlled. - Continue current medications - URINALYSIS, WITH MICROSCOPIC - HGB A1C - COMP METABOLIC PANEL - CBC - PROTEIN CREATININE RATIO 2. Type 2 diabetes mellitus with diabetic peripheral angiopathy without gangrene, without long-term current use of insulin ([facility]) - ICD9: 250.70, 443.81, ICD10: E11.51 Continue present management. 3. PAD (peripheral artery disease) ([facility]) - ICD9: 443.9, ICD10: I73.9 Continue present management. Further evaluation and treatment as indicated. 4. Albuminuria - ICD9: 791.0, ICD10: R80.9 Still very higjh UACR - URINALYSIS, WITH MICROSCOPIC - PROTEIN CREATININE RATIO 5. Hyponatremia - ICD9: 276.1, ICD10: E87.1 Discussed management. 6. Elevated serum protein level - ICD9: 790.99, ICD10: R77.9 - PROTEIN ELECTROPHORESIS SERUM W/INTERP - PROTEIN ELECT RND UR W/INTERP 7. Iron deficiency anemia, unspecified iron deficiency anemia type - ICD9: 280.9, ICD10: D50.9 - CBC + DIFF - FERRITIN BLD - IRON + TIBC - CBC 8. Other vitamin B12 deficiency anemia - ICD9: 281.1, ICD10: D51.8 - CBC + DIFF - VITAMIN B12 BLOOD - CBC Reese Sharif MD documented in this encounter [facility] 11-30-2021 Miscellaneous Notes Patient has been identified by name and date of : Yes Pending Prescriptions Disp Refills GLIMEPIRIDE 2 MG TABLET 90 tablet 3 Sig: Take 1 tablet by mouth daily with breakfast. As directed ABBY: No RX INSTRUCTIONS: Patient aware RX will be sent to pharmacy. No need to notify patient. Zarina Caro Pss documented in this encounter [facility] documented as of this encounter (statuses as of 02/19/2022) [facility] History of Past illness Narrative* Problem Noted Date Resolved Date Ulcer of toe of left foot 11/20/20192021 Ulcer of left foot 11/20/2019 12/13/2021 Ulcer of left heel 11/20/2019 12/13/2021 Disorder of bone and cartilage, unspecified 10/2312/13/2021 Overview: BMD 6-07: -1 at LS spine PTH 14 in 3-09 Vitamin D 44 in 3-09 BMD NL in 11- 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 Overview: Uric acid 5.8 in 7-08, - Unspecified essential hypertension 04/16/2005 11/22/2005 Other abnormal blood chemistry 04/16/2005 0 11/22/2005 documented as of this encounter (statuses as of 02/20/2022) [facility] History of Past illness Narrative* Problem Noted Date Resolved Date Ulcer of toe of left foot 11/20/20192021 Ulcer of left foot 11/20/2019 12/13/2021 Ulcer of left heel 11/20/2019 12/13/2021 Disorder of bone and cartilage, unspecified 10/2312/13/2021 Overview: BMD 6-07: -1 at LS spine PTH 14 in 3-09 Vitamin D 44 in 3-09 BMD NL in 11- 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 Overview: Uric acid 5.8 in 7-08, 6-09 Unspecified essential hypertension 04/16/2005 11/22/2005 Other abnormal blood chemistry 04/16/2005 0 11/22/2005 documented as of this encounter (statuses as of 06/18/2022) [facility] History of Past illness Narrative* Problem Noted Date Resolved Date Ulcer of toe of left foot 11/20/20192021 Ulcer of left foot 11/20/2019 12/13/2021 Ulcer of left heel 11/20/2019 12/13/2021 Disorder of bone and cartilage, unspecified 10/2312/13/2021 Overview: BMD 6-07: -1 at LS spine PTH 14 in 3-09 Vitamin D 44 in 3-09 BMD NL in 11- 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 Overview: Uric acid 5.8 in 7-08, 6-09 Unspecified essential hypertension 04/16/2005 11/22/2005 Other abnormal blood chemistry 04/16/2005 0 11/22/2005 documented as of this encounter (statuses as of 06/18/2022) 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 History of Past illness Narrative* Problem Noted Date Diagnosed Date Resolved Date Ulcer of toe of left foot 11/20/2019 Ulcer of left foot 11/20/2019 2 Ulcer of left heel 11/20/2019 2 Disorder of bone and cartilage, unspecified 11/07/2008 12/13/2021 Overview: BMD 6-07: -1 at LS spine PTH 14 in 3-09 Vitamin D 44 in 3-09 BMD NL in 11- 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 Overview: Uric acid 5.8 in 7-08, 6-09 Unspecified essential hypertension 04/16/2005 11/22/2005 Other abnormal blood chemistry 04/16/2005 11/22/2005 documented as of this encounter (statuses as of 03/31/2023) 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 History of Past illness Narrative* Problem Noted Date Diagnosed Date Resolved Date Ulcer of toe of left foot 11/20/2019 Ulcer of left foot 11/20/2019 2 Ulcer of left heel 11/20/2019 2 Disorder of bone and cartilage, unspecified 11/07/2008 12/13/2021 Overview: BMD 6-07: -1 at LS spine PTH 14 in 3-09 Vitamin D 44 in 3-09 BMD NL in - 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 Overview: Uric acid 5.8 in 7-08, 6-09 Unspecified essential hypertension 04/16/2005 11/22/2005 Other abnormal blood chemistry 04/16/2005 11/22/2005 documented as of this encounter (statuses as of 05/24/2023) [facility] History of Past illness Narrative* Problem Noted Date Diagnosed Date Resolved Date Ulcer of toe of left foot 11/20/2019 Ulcer of left foot 11/20/2019 2 Ulcer of left heel 11/20/2019 2 Disorder of bone and cartilage, unspecified 11/07/2008 12/13/2021 Overview: BMD 6-07: -1 at LS spine PTH 14 in 3-09 Vitamin D 44 in 3-09 BMD NL in 11- 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 Overview: Uric acid 5.8 in 7-08, 6-09 Unspecified essential hypertension 04/16/2005 11/22/2005 Other abnormal blood chemistry 04/16/2005 11/22/2005 documented as of this encounter (statuses as of 06/11/2023) 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 History of Past illness Narrative* Problem Noted Date Diagnosed Date Resolved Date Ulcer of toe of left foot 11/20/2019 Ulcer of left foot 11/20/2019 2 Ulcer of left heel 11/20/2019 2 Disorder of bone and cartilage, unspecified 11/07/2008 12/13/2021 Overview: BMD 6-07: -1 at LS spine PTH 14 in 3-09 Vitamin D 44 in 3-09 BMD NL in - 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 Overview: Uric acid 5.8 in 7-08, 6-09 Unspecified essential hypertension 04/16/2005 11/22/2005 Other abnormal blood chemistry 04/16/2005 11/22/2005 documented as of this encounter (statuses as of 07/16/2023) 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 History of Past illness Narrative* Problem Noted Date Diagnosed Date Resolved Date Ulcer of toe of left foot 11/20/2019 Ulcer of left foot 11/20/2019 2 Ulcer of left heel 11/20/2019 2 Disorder of bone and cartilage, unspecified 11/07/2008 12/13/2021 Overview: BMD 6-07: -1 at LS spine PTH 14 in - Vitamin D 44 in - BMD NL in 07-03 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 Overview: Uric acid 5.8 in 7-08, 6-09 Unspecified essential hypertension 04/16/2005 11/22/2005 Other abnormal blood chemistry 04/16/2005 11/22/2005 documented as of this encounter (statuses as of 07/29/2023) [facility] History of Past illness Narrative* Problem Noted Date Resolved Date 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 Overview: Uric acid 5.8 in 7-08, 6-09 Unspecified essential hypertension 04/16/2005 11/22/2005 Other abnormal blood chemistry 04/16/2005 0 11/22/2005 documented as of this encounter (statuses as of 11/30/2021) [facility] Controlled type 2 diabetes mellitus without complication, without long-term current use of insulin ([facility]) [facility] Diagnosis Type 2 diabetes mellitus with other neurologic complication, without long-term current use of insulin (HCC)- Primary Type 2 diabetes mellitus with diabetic peripheral angiopathy without gangrene, without long-term current use of insulin (HCC) PAD (peripheral artery disease) (HCC) Peripheral vascular disease, unspecified Albuminuria Proteinuria Hyponatremia Hyposmolality and/or hyponatremia Elevated serum protein level Other nonspecific findings on examination of blood Iron deficiency anemia, unspecified iron deficiency anemia type Other vitamin B12 deficiency anemia [facility] Diagnosis Hypertension goal BP (blood pressure) < 150/90 Unspecified essential hypertension Iron deficiency anemia, unspecified iron deficiency anemia type [facility] Diagnosis Type 2 diabetes mellitus with diabetic peripheral angiopathy without gangrene, without long-term current use of insulin (HCC)- Primary Mixed hyperlipidemia Hypertension goal BP (blood pressure) < 150/90 Unspecified essential hypertension Screening for diabetic retinopathy Screening for other eye conditions Encounter for immunization Need for other specified prophylactic vaccination against single bacterial disease Iron deficiency anemia, unspecified iron deficiency anemia type Hyponatremia Hyposmolality and/or hyponatremia Other vitamin B12 deficiency anemia Albuminuria Proteinuria [facility] Diagnosis Hypercalcemia- Primary Abnormal SPEP Other nonspecific findings on examination of blood documented in this encounter [facility] note* Diagnosis Non-healing skin lesion of nose- Primary Other diseases of nasal cavity and sinuses Controlled type 2 diabetes mellitus without complication, without long-term current use of insulin ([facility]) [facility] Diagnosis Hypertension goal BP (blood pressure) < 150/90 Unspecified essential hypertension [facility] Diagnosis Dysuria [facility] Diagnosis Dysuria [facility] Diagnosis Hypoglycemia- Primary Hypoglycemia, unspecified MERCEDES (acute kidney injury) (HCC) Acute kidney failure, unspecified Diarrhea, unspecified type Debility Debility, unspecified Type 2 diabetes mellitus with diabetic peripheral angiopathy without gangrene, without long-term current use of insulin (HCC) Hypertension goal BP (blood pressure) < 150/90 Unspecified essential hypertension documented in this encounter 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 Advance Directive(s) 04/05/2020 7:19 AM Advance Directive(s) 03/27/2020 5:47 PM Advance Directive(s) 04/22/2016 1:16 PM Advance Directive(s) 04/01/2016 9:15 AM Reason for Referral Specialty Diagnoses / Procedures Referred By Contac t Referred To Contact Diagnoses Hypercalcemia Abnormal SPEP Procedures CONSULT TO HEMATOLOGY/ONCOLOGY OFFICE/OUTPATIENT NEW HIGH MDM 60-74 MINUTES Reese Sharif MD [address] [place] [address] Referral ID Status Reason Start Date Expiration Date Visits Requested Visits Authorized [id number] Authorized PCP Requested Referral 2 06/18/2023 1 1 Specialty Diagnoses / Procedures Referred By Contac t Referred To Contact Dermatology Diagnoses Non-healing skin lesion of nose Procedures CONSULT TO DERMATOLOGY Reese Sharif MD [address] [place] [address] [employer] [address] [place] [address] Referral ID Status Reason Start Date Expiration Date Visits Requested Visits Authorized [id number] Ref Not Required PCP Requested Referral 12/02/2022 12/02/2023 1 1 Summary Purpose Family History No Family History Records Found Additional Source Comments Source Comments (unrecognize d section and content) In the event this informatio n is protected by the Federal Confidentiality of Alcohol and Drug Abuse Patient Records regulations: The Federal rules restrict any use of the information to criminally investigate or prosecute any alcohol or drug abuse patient.[facility] the event this information is protected by the Federal Confidentiality of Alcohol and Drug Abuse Patient Records regulations: The Federal rules restrict any use of the information to criminally investigate or prosecute any alcohol or drug abuse patient.[facility] the event this information is protected by the Federal Confidentiality of Alcohol and Drug Abuse Patient Records regulations: The Federal rules restrict any use of the information to criminally investigate or prosecute any alcohol or drug abuse patient.[facility] the event this information is protected by the Federal Confidentiality of Alcohol and Drug Abuse Patient Records regulations: The Federal rules restrict any use of the information to criminally investigate or prosecute any alcohol or drug abuse patient.[facility] the event this information is protected by the Federal Confidentiality of Alcohol and Drug Abuse Patient Records regulations: The Federal rules restrict any use of the information to criminally investigate or prosecute any alcohol or drug abuse patient.[facility] the event this information is protected by the Federal Confidentiality of Alcohol and Drug Abuse Patient Records regulations: The Federal rules restrict any use of the information to criminally investigate or prosecute any alcohol or drug abuse patient.[facility] the event this information is protected by the Federal Confidentiality of Alcohol and Drug Abuse Patient Records regulations: The Federal rules restrict any use of the information to criminally investigate or prosecute any alcohol or drug abuse patient.[facility]In the event this information is protected by the Federal Confidentiality of Alcohol and Drug Abuse Patient Records regulations: The Federal rules restrict any use of the information to criminally investigate or prosecute any alcohol or drug abuse patient.[facility] the event this information is protected by the Federal Confidentiality of Alcohol and Drug Abuse Patient Records regulations: The Federal rules restrict any use of the information to criminally investigate or prosecute any alcohol or drug abuse patient.[facility] the event this information is protected by the Federal Confidentiality of Alcohol and Drug Abuse Patient Records regulations: The Federal rules restrict any use of the information to criminally investigate or prosecute any alcohol or drug abuse patient.[facility]In the event this information is protected by the Federal Confidentiality of Alcohol and Drug Abuse Patient Records regulations: The Federal rules restrict any use of the information to criminally investigate or prosecute any alcohol or drug abuse patient.[facility] the event this information is protected by the Federal Confidentiality of Alcohol and Drug Abuse Patient Records regulations: The Federal rules restrict any use of the information to criminally investigate or prosecute any alcohol or drug abuse patient.[facility]In the event this information is protected by the Federal Confidentiality of Alcohol and Drug Abuse Patient Records regulations: The Federal rules restrict any use of the information to criminally investigate or prosecute any alcohol or drug abuse patient.[facility]In the event this information is protected by the Federal Confidentiality of Alcohol and Drug Abuse Patient Records regulations: The Federal rules restrict any use of the information to criminally investigate or prosecute any alcohol or drug abuse patient.[facility]In the event this information is protected by the Federal Confidentiality of Alcohol and Drug Abuse Patient Records regulations: The Federal rules restrict any use of the information to criminally investigate or prosecute any alcohol or drug abuse patient.[facility]In the event this information is protected by the Federal Confidentiality of Alcohol and Drug Abuse Patient Records regulations: The Federal rules restrict any use of the information to criminally investigate or prosecute any alcohol or drug abuse patient.[facility]In the event this information is protected by the Federal Confidentiality of Alcohol and Drug Abuse Patient Records regulations: The Federal rules restrict any use of the information to criminally investigate or prosecute any alcohol or drug abuse patient.[facility]In the event this information is protected by the Federal Confidentiality of Alcohol and Drug Abuse Patient Records regulations: The Federal rules restrict any use of the information to criminally investigate or prosecute any alcohol or drug abuse patient.[facility]In the event this information is protected by the Federal Confidentiality of Alcohol and Drug Abuse Patient Records regulations: The Federal rules restrict any use of the information to criminally investigate or prosecute any alcohol or drug abuse patient.[facility]In the event this information is protected by the Federal Confidentiality of Alcohol and Drug Abuse Patient Records regulations: The Federal rules restrict any use of the information to criminally investigate or prosecute any alcohol or drug abuse patient.[facility] Reason for Visit (unrecogniz ed section and content) Reason Comments Follow Up Reason Comments Prescription Refills Reason Comments F/U 6 Month Reason Comments Results Reason Comments Established Patient X 8-12 months sore a isiah on nose Reason Onset Date Comments Refill Request 02/27/2023 Reason Comments Patient Update Medication Request Reason Onset Date Comments UTI 04/21/2023 Not resolved tot ally patient asking for a little more antibiotic to get it totally gone Reason Onset Date Comments Population Health Navigation Outreach 06/10/2023 HCC Gaps Reason Comments Home Health Orders Reason Comments [facility] Nursing Call Reason Comments Home Health update Reason Comments Home Health orders Reason Comments FYI-PT plan of care Reason Comments Orders Reason Comments Hospital F/U Reason Comments Patient Update Reason Comments Refill Request Care Teams (unrecognized sec tion and content) Marketing Executive Relationship Specialty Start Date End Date Reese Sharif MD [address] [place] [address] PCP - General 10/02/09 Marketing Executive Relationship Specialty Start Date End Date Reese Sharif MD [address] [place] [address] PCP - General 10/02/09 Marketing Executive Relationship Specialty Start Date End Date Reese Sharif MD [address] [place] [address] PCP - General 10/02/09 Marketing Executive Relationship Specialty Start Date End Date Reese Sharif MD [address] [place] [address] PCP - General 10/02/09 Marketing Executive Relationship Specialty Start Date End Date Reese Sharif MD [address] [place] [address] PCP - General 10/02/09 Marketing Executive Relationship Specialty Start Date End Date Reese Sharif MD [address] [place] [address] PCP - General 10/02/09 Marketing Executive Relationship Specialty Start Date End Date Reese Sharif MD [address] [place] [address] PCP - General 10/02/09 Marketing Executive Relationship Specialty Start Date End Date Reese Sharif MD [address] [place] [address] PCP - General 10/02/09 Marketing Executive Relationship Specialty Start Date End Date Reese Sharif MD [address] [place], [place] [address] PCP - General 10/02/09 Marketing Executive Relationship Specialty Start Date End Date Reese Sharif MD [address] [place], [place] [id number] PCP General 10/02/09 Marketing Executive Relationship Specialty Start Date End Date Reese Sharif MD [address] [place], [place] [id number] PCP [facility] 10/02/09 Marketing Executive Relationship Specialty Start Date End Date Reese Sharif MD [address] [place], [place] [id number] [facility] 10/02/09 INFORMATION SOURCE (unrecogn ized section and content) FOR RECORDS PERTAINING TO PATIENTS WHO ARE OR HAVE BEEN ENROLLED IN A CHEMICAL DEPENDENCY/SUBSTANCEABUSE PROGRAM, SOME INFORMATION MAY BE OMITTED. This clinical summary was aggregated from multiple sources. Caution should be exercised in using it in the provision of clinical care. This summary normalizes information from multiple sources, and as a consequence, information in this document may materially change the coding, format and clinical context of patient data. In addition, data may be omitted in some cases. CLINICAL DECISIONS SHOULD BE BASED ON THE PRIMARY CLINICAL RECORDS. [facility] [employer] [facility]. provides no warranty or guarantee of the accuracy or completeness of information in this document.
[2023-10-05] MEDS: 0.9% Normal Saline (1000mL) 1,000 ML 999 ML IV ×2 (19:47→22:03)
[2023-10-05] MEDS: Ondansetron 4 MG/2 ML Vial IV (19:47)
--- NOTE | 2023-10-05 19:50 | EDS_ITS ---
HPI <MILDRED Fam - Last Filed: 10/05/23 22:14> History of Present Illness Chief Complaint: Nausea/Vomiting Narrative Narrative: Patient is an 88-year-old female with history of hypertension, diabetes, history of urinary tract infections presents to the emergency department with fever, chills, abdominal pain, nausea as well as dysuria. Per the patient's daughter, the patient has been dealing with frequent UTIs. When she asked like this, she did have a UTI in the past. Per the daughter, the happened all of a sudden around 4 PM tonight. Patient has had multiple episodes of vomiting. Feeling she has to go to the bathroom. Fever was as high as 103 at home. PFS <MILDRED Fam - Last Filed: 10/05/23 22:14> [facility] Medical History Diabetes Glaucoma Hyperlipidemia Hypertension Urinary retention Urinary tract infection Home Medications latanoprost 0.005 % eye drops 1 drp QHS Check with primary doctor 04/04/17 [History Last Taken Unknown] simvastatin 10 mg tablet (Zocor) 10 mg PO QHS Check with primary doctor 04/04/17 [History Last Taken 06/21/23] amlodipine 2.5 mg tablet 10 mg PO 2000 Blood Pressure 06/08/23 [History Last Taken Unknown] pantoprazole 40 mg tablet,delayed release 40 mg PO BID Acid Reflux #60 tabs 06/20/23 [Rx Last Taken 06/22/23] metoprolol tartrate 50 mg tablet 50 mg PO BID Blood Pressure #0 tabs 06/22/23 [Rx Last Taken 06/22/23] ascorbic acid (vitamin C) 500 mg tablet 500 mg PO 1000 30 days #30 tabs 07/04/23 [Rx Last Taken Unknown] polysaccharide iron complex 150 mg iron capsule (Ferrex) 150 mg PO DAILY 30 days #30 caps 07/04/23 [Rx Last Taken Unknown] sucralfate 1 gram tablet (Carafate) 1 g PO TID Stomach 30 days #90 tabs 07/04/23 [Rx Last Taken Unknown] tamsulosin 0.4 mg capsule 0.4 mg PO DAILY@1730 30 days #30 caps 07/04/23 [Rx Last Taken Unknown] Allergy/AdvReac Type Severity Reaction Status Date / Time betaxolol [From Betoptic] Allergy Itching Verified 06/08/23 14:18 brimonidine [From Alphagan P] Allergy Itching Verified 06/08/23 14:18 cephalexin [From Keflex] Allergy Rash Verified 06/08/23 14:18 nabumetone [From Relafen] Allergy Rash Verified 06/08/23 14:18 Family History Other Diabetes Heart disease Surgical History Status post laparoscopy with lysis of adhesions Social History household members: family housing: house Smoking Status: Former smoker alcohol intake: never substance use type: does not use ROS <MILDRED Fam - Last Filed: 10/05/23 22:14> ROS ED ROS Narrative Constitutional: Negative for weight loss, weakness. Positive fever and chills Eyes: Negative for vision loss, vision change, double vision ENT: Negative for any sore throat, ear pain, congestion Cardiovascular: Negative for any chest pain, tightness, palpitations Respiratory: Negative for any cough, sputum production, hemoptysis, dyspnea, dyspnea on exertion, orthopnea Gastrointestinal: Negative for any abdominal pain,diarrhea, constipation, blood in stool, blood in vomit. Positive for nausea and vomiting : Negative for any urinary frequency, retention, blood in urine. Positive dysuria Muscle skeletal: Negative for any neck pain, back pain Neurological: Negative for any headache, syncope, dizziness Skin: Negative for any rashes, itching, abrasions, lacerations Psychiatric: Negative for any depression, anxiety, stress, suicidal ideation, homicidal ideation Hematologic: Negative for any excessive bruising, easy bleeding EXAM <MILDRED Fam - Last Filed: 10/05/23 22:14> Physical Exam Narrative Exam Narrative: Vital signs reviewed. Patient arrives in mild distress secondary to nausea, vomiting. Patient also stated she is to the bathroom. Patient is alert and oriented. Patient does look ill appearing HEET: Head normocephalic atraumatic, TMs clear bilaterally. Posterior pharynx is clear, dry mucous membranes. Nares clear bilaterally. Neck: Supple with no lymphadenopathy or tenderness. No signs of meningismus. Cardiac: Tachycardic rate no murmurs gallops or rubs, equal peripheral pulses bilaterally. Respiratory: Lungs clear to auscultation bilaterally. No chest tenderness. Abdomen: Soft, nontender, nondistended. No abdominal bruit or pulsatile masses. No hepatosplenomegaly Extremities: No peripheral edema, no signs of gross trauma or deformity. Active full range of motion of all extremities. Neuro: Cranial nerves II through XII intact, no focal neurological deficits. Skin: Clean dry and intact with no rash, purpura, petechiae, vesicles or pustules. Skin is warm to the touch Backs/flank: No CVA tenderness, no midline spinal tenderness, no deformity. Psych: Normal mood and affect. No SI, HI or acute psychosis. Const Vital Signs: 10/05/23 19:03 10/05/23 19:56 10/05/23 19:56 Temperature 101.7 F H 101.7 F H Temperature Source Oral Oral Pulse Rate 126 H 128 H Respiratory Rate 30 H 23 H Blood Pressure 204/58 H 178/48 H Blood Pressure Mean 106 91 Pulse Ox 94 96 Oxygen Delivery Method Room Air Room Air Room Air 10/05/23 21:40 10/05/23 21:40 Temperature 97.6 F L Temperature Source Temporal Pulse Rate 113 H 113 H Respiratory Rate 34 H 34 H Blood Pressure 139/39 H 139/39 H Blood Pressure Mean 72 72 Pulse Ox 94 94 Oxygen Delivery Method Room Air <Dr. Kelvin Brownlee MD - Last Filed: 10/06/23 00:05> Physical Exam Const Vital Signs: 10/05/23 19:03 10/05/23 19:56 10/05/23 19:56 Temperature 101.7 F H 101.7 F H Temperature Source Oral Oral Pulse Rate 126 H 128 H Respiratory Rate 30 H 23 H Blood Pressure 204/58 H 178/48 H Blood Pressure Mean 106 91 Pulse Ox 94 96 Oxygen Delivery Method Room Air Room Air Room Air 10/05/23 21:40 10/05/23 21:40 Temperature 97.6 F L Temperature Source Temporal Pulse Rate 113 H 113 H Respiratory Rate 34 H 34 H Blood Pressure 139/39 H 139/39 H Blood Pressure Mean 72 72 Pulse Ox 94 94 Oxygen Delivery Method Room Air [facility] <MILDRED Fam - Last Filed: 10/05/23 22:14> [facility] Lab Data Labs: Laboratory Results - last 24 hr 10/05/23 10/05/23 19:33 20:15 WBC 8.0 RBC 3.94 L Hgb 10.5 L Hct 33.9 L MCV 86.0 MCH 26.6 L MCHC 31.0 L RDW Std Deviation 43.7 RDW Coeff of Alanna 13.8 Plt Count 282 MPV 9.8 Immature Gran % (Auto) 0.400 Neut % (Auto) 90.9 H Lymph % (Auto) 5.4 L Powell % (Auto) 2.5 Eos % (Auto) 0.5 Baso % (Auto) 0.3 Absolute Neuts (auto) 7.3 Absolute Lymphs (auto) 0.43 L Nucleated RBC % 0 PT 13.7 INR 1.0 APTT 30.6 Sodium 136 Potassium 3.6 Chloride 104 Carbon Dioxide 23.0 Anion Gap 9 BUN 21 H Creatinine 1.09 H Estim Creat Clear Calc 26.12 Est GFR (MDRD) Af Amer 61 Est GFR (MDRD) Non-Af 50 L BUN/Creatinine Ratio 19.3 Glucose 299 H Lactic Acid 2.9 H* Calcium 10.0 Total Bilirubin 1.40 H AST 528 H ALT 321 H Alkaline Phosphatase 293 H Total Protein 8.7 H Albumin 3.3 Globulin 5.4 H Albumin/Globulin Ratio 0.6 L Urine Color Yellow Urine Clarity Clear Urine pH 6.0 Ur Specific [place] 1.010 Urine Protein 500 H Urine Glucose (UA) 100 H Urine Ketones Negative Urine Occult Blood 25 H Urine Nitrite Negative Urine Bilirubin Negative Urine Urobilinogen Normal Ur Leukocyte Esterase 500 H Urine RBC 0 SEEN Urine WBC 10-25 SEEN Ur Squamous Epith Cells 0 SEEN Urine Bacteria 0 SEEN Urine Mucus 0 SEEN Radiography Diagnostic Testing: Clinical Impression(s) from Imaging Studies Abdomen/Pelvis CT 10/05/23 19:24 IMPRESSION: Nonspecific gallbladder distention with wall thickening/edema. Consider further evaluation by gallbladder ultrasound. Abnormal biliary distention with 14 mm common bile duct, no calcified bile duct calculus. 9 mm hyperdense right cortical cystic lesion. Although almost definitely benign six-month follow-up recommended for stability. Electronically Signed: Dick Aleman MD at 20:40 EST , Chest X-Ray 10/05/23 19:59 IMPRESSION: No radiographic evidence of acute cardiopulmonary disease. Electronically Signed: Dick Aleman MD at 20:28 EST , Gallbladder Ultrasound 10/05/23 21:03 IMPRESSION: Gallbladder sludge and mild pericholecystic fluid. No sonographic findings of definite acute cholecystitis. Dilated common bile duct without identifiable obstructing calculus. Electronically Signed: Dick Aleman MD at 22:58 EST , EKG Sinus tachycardia: Attestation: I personally reviewed and interpreted this EKG as follows: Comments: Sinus tachycardia, rate 126 bpm, DC interval 142 ms, QRS duration 76 ms, no acute ST elevation, no acute infarct noted. Treatment and Re-Evaluation :: Patient appears to be in mild distress secondary to nausea and vomiting. Patient is febrile here. Patient also is complaining of difficulty urinating. Differential diagnosis includes viral illness such as COVID-19 or influenza, community-acquired pneumonia, UTI, abdominal pathology. Patient will receive 1 L of normal saline, IV Zofran, Tylenol. Patient will be checked for respiratory viruses. Patient will receive a urinalysis, this will be to assess for any UTI. Patient received a CT scan abdomen pelvis without contrast For any bowel obstruction, mass. Patient will be reevaluated. Patient's CBC was unremarkable, patient's PT/INR is within normal limits. Patient's chemistries show creatinine 1.9, patient's glucose was 299, patient's lactic acid was elevated 2.9, patient does meet sepsis criteria. Given 30 cc/kg IV bolus given. Patient did have some transaminitis with a total bilirubin of 1.4, AST of 528, ALT of 321 and alkaline phosphate 293. Patient urinalysis was positive for infection. IV Zosyn given. Patient's vital signs did improve. Patient received a CT scan of the abdomen pelvis, this showed nonspecific gallbladder distention with wall thickening/edema. Consider further evaluation by gallbladder ultrasound. Abnormal biliary distention with 14 mm common bile duct, no calcified bile duct calculus. 9 mm hyperdense right cortical cystic lesion. Almost definitely benign 6-month follow-up recommended. Secondary to this finding, I did reach out to Dr. Gonzalez from surgery, he recommended a right upper quadrant ultrasound. Patient was reevaluated, patient is feeling much better. Vital signs reflect this. <Dr. Kelvin Brownlee MD - Last Filed: 10/06/23 00:05> [facility] MDM Narrative Medical decision making narrative: I have personally performed a face to face assessment of the patient and have reviewed the CEE Note. I performed a substantive portion of the visit including all aspects of the following. My licea findings include: History: History is from patient and daughter. They live together. Today the patient just started not feel well. Her appetite was down. She got nauseated. Then later this evening she seemed to get sicker. She had a fever of about 103 at home. Not having abdominal pain. She has frequent problems urinating and she has had the symptoms with UTIs before. Not coughing and not trouble breathing. Exam: Patient is awake and alert. She is actually not toxic looking. Heart rate is a little bit up. This appears to be sinus tachycardia. She is given fluids. Her lungs are overall clear. Abdomen is actually benign. Even with her CT findings she is not having tenderness including her right upper quadrant. Medical Decision Making: Blood work showed mild anemia. White count was not elevated at this point. Electrolytes showed mild elevation BUN/creatinine. Lactic acid was high at 2.9. Again she is given IV fluids. She is given antibiotics. All her LFTs were is up but and as far as we can tell this is new. We did CT of her abdomen that does show an enlarged gallbladder and duct. We then did an ultrasound that shows a little bit of pericholecystic fluid but no convincing evidence of acute cholecystitis. We discussed case with surgeon, Dr. Gonzalez. He agreed that the patient should come in with nausea vomiting fever those findings. But we also do have a UTI. She may need further imaging or ERCP MRCP to evaluate this. But does not need acute surgical intervention at this time. I do agree with this. I am calling hospitalist to discuss the case. Lab Data Attestation: I reviewed the patient's lab results. Labs: Laboratory Results - last 24 hr 10/05/23 10/05/23 19:33 20:15 WBC 8.0 RBC 3.94 L Hgb 10.5 L Hct 33.9 L MCV 86.0 MCH 26.6 L MCHC 31.0 L RDW Std Deviation 43.7 RDW Coeff of Alanna 13.8 Plt Count 282 MPV 9.8 Immature Gran % (Auto) 0.400 Neut % (Auto) 90.9 H Lymph % (Auto) 5.4 L Powell % (Auto) 2.5 Eos % (Auto) 0.5 Baso % (Auto) 0.3 Absolute Neuts (auto) 7.3 Absolute Lymphs (auto) 0.43 L Nucleated RBC % 0 PT 13.7 INR 1.0 APTT 30.6 Sodium 136 Potassium 3.6 Chloride 104 Carbon Dioxide 23.0 Anion Gap 9 BUN 21 H Creatinine 1.09 H Estim Creat Clear Calc 26.12 Est GFR (MDRD) Af Amer 61 Est GFR (MDRD) Non-Af 50 L BUN/Creatinine Ratio 19.3 Glucose 299 H Lactic Acid 2.9 H* Calcium 10.0 Total Bilirubin 1.40 H AST 528 H ALT 321 H Alkaline Phosphatase 293 H Total Protein 8.7 H Albumin 3.3 Globulin 5.4 H Albumin/Globulin Ratio 0.6 L Urine Color Yellow Urine Clarity Clear Urine pH 6.0 Ur Specific [place] 1.010 Urine Protein 500 H Urine Glucose (UA) 100 H Urine Ketones Negative Urine Occult Blood 25 H Urine Nitrite Negative Urine Bilirubin Negative Urine Urobilinogen Normal Ur Leukocyte Esterase 500 H Urine RBC 0 SEEN Urine WBC 10-25 SEEN Ur Squamous Epith Cells 0 SEEN Urine Bacteria 0 SEEN Urine Mucus 0 SEEN Radiography Diagnostic Testing: Clinical Impression(s) from Imaging Studies Abdomen/Pelvis CT 10/05/23 19:24 IMPRESSION: Nonspecific gallbladder distention with wall thickening/edema. Consider further evaluation by gallbladder ultrasound. Abnormal biliary distention with 14 mm common bile duct, no calcified bile duct calculus. 9 mm hyperdense right cortical cystic lesion. Although almost definitely benign six-month follow-up recommended for stability. Electronically Signed: Dick Aleman MD at 20:40 EST , Chest X-Ray 10/05/23 19:59 IMPRESSION: No radiographic evidence of acute cardiopulmonary disease. Electronically Signed: Dick Aleman MD at 20:28 EST , Gallbladder Ultrasound 10/05/23 21:03 IMPRESSION: Gallbladder sludge and mild pericholecystic fluid. No sonographic findings of definite acute cholecystitis. Dilated common bile duct without identifiable obstructing calculus. Electronically Signed: Dick Aleman MD at 22:58 EST , Discharge Plan Triage Chief Complaint: Nausea/Vomiting ED Midlevel Provider: Michael Esteban ED Provider: Kelvin Brownlee Dx/Rx/DC Orders Clinical Impression: Sepsis, Nausea & vomiting, Fever, Cholecystitis, Acute UTI Prescriptions: No Action latanoprost 1 DROP bottle 1 drp Each Eye QHS simvastatin [Zocor] 10 MG tablet 10 mg PO QHS amlodipine 2.5 MG tablet 10 mg PO 1999 metoprolol tartrate 50 mg Tablet 50 mg PO BID Qty: 0 0RF ascorbic acid (vitamin C) 500 mg Tablet 500 mg PO 1000 30 Days Qty: 30 0RF polysaccharide iron complex [Ferrex 150] 150 mg iron Capsule 150 mg PO DAILY 30 Days Qty: 30 0RF tamsulosin 0.4 mg Capsule 0.4 mg PO DAILY@1730 30 Days Qty: 30 0RF sucralfate [Carafate] 1 gram tablet 1 g PO TID 30 Days Qty: 90 0RF Rx Instructions: 1 gram TID for 30 days then take 1 gram BID for 30 days. pantoprazole 40 mg tablet,delayed release (DR/EC) 40 mg PO BID Qty: 60 6RF Primary Care Provider: Claire Sharif Referrals: Claire Sharif MD [Primary Care Provider] - Disposition Disposition: Acute Care Hospital [facility]
[2023-10-05 19:56] VITALS: BP 178/48; PULSE 128; RESP 23; TEMP 38.7; O2SAT 96
--- NOTE | 2023-10-05 19:59 | RAD_ITS ---
INDICATION: cough EXAMINATION/TECHNIQUE: X-RAY - portable upright AP chest x-ray COMPARISON: 06/08/2023 FINDINGS: LINES/DEVICES: None. LUNGS: No consolidation, edema or effusion. No pneumothorax. MEDIASTINUM AND CARDIOVASCULAR STRUCTURES: Cardiac silhouette stable within normal limits. BONES AND SOFT TISSUES: No acute changes. RAD/Chest 1 View (Portable) IMPRESSION: No radiographic evidence of acute cardiopulmonary disease. Electronically Signed: Dick Aleman MD at 20:28 EST ,
[2023-10-05 20:02] LABS: ALB/GLOB Ratio 0.6 RATIO (0.9-2.4); AST(SGOT) 528 U/L (15-37); Alanine Aminotransfer ALT/SGPT 321 U/L (13-56); Albumin, Serum 3.3 g/dL (3.2-5.0); Alkaline Phosphatase 293 U/L (45-117); Anion Gap 9 (5-15); BUN 21 mg/dL (7-18); BUN/Creat Ratio 19.3 RATIO (10-20); Chloride 104 mmol/L (98-107); Creatinine, Serum 1.09 mg/dL (0.55-1.02); EST Glomerular Filtration Rate 50 mL/min (>60); Est Glom Filt Rate - Afr Amer 61 mL/min (>60); Estimated Creatinine Clearance 26.12 ml/min; Globulin 5.4 g/dL (2.2-4.2); Glucose 299 mg/dL (74-106); Potassium 3.6 mmol/L (3.5-5.1); Protein, Total 8.7 g/dL (6.4-8.2); Sodium Level 136 mmol/L (136-145)
[2023-10-05 20:21] LABS: Bacteria 0 SEEN /hpf (None Seen); Mucous, Urine 0 SEEN /hpf (<or=2+); Red Blood Cells-Urine 0 SEEN /hpf (0-5); Squamous Epithelial Cells - UA 0 SEEN /hpf (5-10)
[2023-10-05 20:28] LABS: Lactic Acid 2.9 mmol/L (0.4-1.9)
[2023-10-05 20:33] LABS: Prothrombin Time (Protime)PT. 13.7 SECONDS (11.7-14.9)
[2023-10-05 20:34] LABS: Partial Thromboplast Time 30.6 Seconds (24.1-36.2)
--- NOTE | 2023-10-05 21:03 | US_ITS ---
PROCEDURE: ABDOMINAL ULTRASOUND, RIGHT UPPER QUADRANT COMPARISONS: CT abdomen and pelvis same date. CLINICAL INDICATION: Abdominal pain TECHNIQUE: Real-time dias-scale abdominal ultrasound. Limited color Doppler evaluation is performed. FINDINGS: Liver: Normal in size and echogenicity. Appropriate hepatopetal flow is present in the main portal vein. Gallbladder: Normal wall thickness. Gallbladder sludge, no gallstones. Sonographic Ramos''s sign is absent. Trace pericholecystic fluid is present. Biliary Tree: Dilated. Common bile duct measures 15 mm. Pancreas: Limited evaluation of the head and body is unremarkable. Right kidney: Normal in size and echogenicity. Mild dilatation renal pelvis without dilatation of the renal collecting system. The right kidney measures 11.7 cm in long axis. No free fluid. Inferior vena cava: Unremarkable. US/Gallbladder IMPRESSION: Gallbladder sludge and mild pericholecystic fluid. No sonographic findings of definite acute cholecystitis. Dilated common bile duct without identifiable obstructing calculus. Electronically Signed: Dick Aleman MD at 22:58 EST ,
[2023-10-05 21:19] LABS: Color, Urine Yellow (Yellow); Glucose, Dipstick 100 mg/dl (Normal); Ketone-Dipstick Negative (Negative); Leukocyte Esterase-Dipstick 500 /ul (Negative); Nitrite-Dipstick Negative (Negative); Occult Blood-Urine 25 /ul (Negative); Protein-Dipstick 500 mg/dl (Negative); Urine Bilirubin Dipstick Negative (Negative); Urine Clarity Clear (Clear); Urine Urobilinogen Normal (Normal); White Blood Cells 10-25 SEEN /hpf (0-5)
[2023-10-05 21:40] VITALS: BP 139/39; PULSE 113; RESP 34; TEMP 36.4; O2SAT 94
[2023-10-05] MEDS: Piperacil/Tazobactam 3.375 GM in 0.9% Normal Saline (50mL MB+) 50 ML IV (22:03)
[2023-10-05 23:00] VITALS: BP 109/33; PULSE 103; RESP 16; O2SAT 97
[2023-10-05 23:38] LABS: Reflex Lactate? Y
--- NOTE | 2023-10-05 23:51 | PCM.HP.STD ---
HPI - General General Date of Admission: 10/06/23 Date of Service: 10/05/23 Chief Complaint: High-grade fever at home, nausea, vomiting HPI Narrative VERONICA HUNT, is a 88 F came to ED with vomiting, fever and nausea by EMS squad she lives with her daughter who is main caregiver. As per the daughter, she had a fever measuring 103 Fahrenheit between 5 to 6 PM along with nausea. She also threw up in the evening x 2 what she ate in the afternoon. She denies abdominal pain. Her blood pressure was elevated.Heart rate 142-minute, BP 176/65 by EMS. In ED, her blood pressure was also elevated 200/58, heart rate 126/min but later on improved heart rate 113/min, blood pressure 139/39. The patient had abdomen pelvis CT which showed nonspecific GB distention with wall thickening/edema and reported abnormal biliary distention with 14 mm. Furthermore right upper quadrant sonogram was done which reported GB sludge and mild pericholecystic fluid, no sonographic evidence of definite acute mastitis. Dilated CBD without identifiable obstructing calculus. Patient was given IV fluid and antibiotics Zosyn and further admitted. [facility] Medical History Diabetes Glaucoma Hyperlipidemia Hypertension Urinary retention Urinary tract infection Home Medications latanoprost 0.005 % eye drops 1 drp QHS Check with primary doctor 04/04/17 [History Last Taken Unknown] simvastatin 10 mg tablet (Zocor) 10 mg PO QHS Check with primary doctor 04/04/17 [History Last Taken 06/21/23] amlodipine 2.5 mg tablet 10 mg PO 2000 Blood Pressure 06/08/23 [History Last Taken Unknown] pantoprazole 40 mg tablet,delayed release 40 mg PO BID Acid Reflux #60 tabs 06/20/23 [Rx Last Taken 06/22/23] metoprolol tartrate 50 mg tablet 50 mg PO BID Blood Pressure #0 tabs 06/22/23 [Rx Last Taken 06/22/23] ascorbic acid (vitamin C) 500 mg tablet 500 mg PO 1000 30 days #30 tabs 07/04/23 [Rx Last Taken Unknown] polysaccharide iron complex 150 mg iron capsule (Ferrex) 150 mg PO DAILY 30 days #30 caps 07/04/23 [Rx Last Taken Unknown] sucralfate 1 gram tablet (Carafate) 1 g PO TID Stomach 30 days #90 tabs 07/04/23 [Rx Last Taken Unknown] tamsulosin 0.4 mg capsule 0.4 mg PO DAILY@1730 30 days #30 caps 07/04/23 [Rx Last Taken Unknown] vibegron 75 mg tablet (Gemtesa) 75 mg PO DAILY 10/06/23 [History Last Taken Unknown] Allergy/AdvReac Type Severity Reaction Status Date / Time betaxolol [From Betoptic] Allergy Itching Verified 06/08/23 14:18 brimonidine [From Alphagan P] Allergy Itching Verified 06/08/23 14:18 cephalexin [From Keflex] Allergy Rash Verified 06/08/23 14:18 nabumetone [From Relafen] Allergy Rash Verified 06/08/23 14:18 Family History Other Diabetes Heart disease Surgical History Status post laparoscopy with lysis of adhesions Social History household members: family housing: house Smoking Status: Former smoker alcohol intake: never substance use type: does not use ROS ROS Narrative Constitutional: Reports fatigue and weakness. Fever HEENT: Reports systems reviewed and no addt'l complaints, except as documented Respiratory/Chest: No acute shortness of breath or respiratory distress or wheezing. CVS: No chest pain pressure or tightness. Gastrointestinal: Vomiting but no hematemesis or melena. Genitourinary: Denies burning urination or new urinary tract symptoms Musculoskeletal: Denies acute joint pain or limited range of motion. No acute injury Neurologic: Denies seizure-like symptoms. skin: No ulcer. No rash Endocrinology: Reports systems reviewed and no addt'l complaints, except as documented Hematologic/Lymphatic: Reports systems reviewed and no addt'l complaints, except as documented Rest 14 ROS are negative except as mentioned in HPI Vital Signs Vital Signs Vital Signs: 10/05/23 19:03 10/05/23 19:56 10/05/23 19:56 Temperature 101.7 F H 101.7 F H Temperature Source Oral Oral Pulse Rate 126 H 128 H Respiratory Rate 30 H 23 H Blood Pressure 204/58 H 178/48 H Blood Pressure Mean 106 91 Pulse Ox 94 96 Oxygen Delivery Method Room Air Room Air Room Air 10/05/23 21:40 10/05/23 21:40 Temperature 97.6 F L Temperature Source Temporal Pulse Rate 113 H 113 H Respiratory Rate 34 H 34 H Blood Pressure 139/39 H 139/39 H Blood Pressure Mean 72 72 Pulse Ox 94 94 Oxygen Delivery Method Room Air Weight Weight: 106 lb 4.205 oz Body Mass Index (BMI) 20.7 Physical Exam Narrative General: Alert, Oriented x3, Cooperative. Feeling cold and shivering. HEENT: Atraumatic, PERRLA, EOMI, Normocephalic Oral: Oral mucosa very dry. No Gingival or Mucosal Lesions/ Ulcerations Neck: Supple, No JVD, Negative Carotid Bruits Chest wall/Lungs: Air entry diminished in bilateral lung bases. No crepitation/rhonchi Cardiovascular: Sinus tachycardia, Normal S1, Normal S2, No M/G/R Abdomen: Bowel Sounds Present, Soft, right upper quadrant/right subcostal tenderness. Ramos sign positive. GB not palpable. No distention. Clinically not palpable ascites. : No dysuria. No renal angle tenderness. No suprapubic tenderness. Extremities: No edema, Capillary Refill Less than 3 Seconds Skin: No rashes, No breakdown Musculoskeletal: No Tenderness to Palpation of Joints or Extremities Neurological: Cranial nerves II-XII grossly intact, DTR 2+/4. No acute focal neurological deficit. Psych/Mental Status: Normal Affect, Appropriate. Results Lab / Micro Data 10/05/23 19:33 10/05/23 19:33 Labs: Laboratory Results - last 24 hr 10/05/23 19:33: WBC 8.0, RBC 3.94 L, Hgb 10.5 L, Hct 33.9 L, MCV 86.0, MCH 26.6 L, MCHC 31.0 L, RDW Std Deviation 43.7, RDW Coeff of Alanna 13.8, Plt Count 282, MPV 9.8, Immature Gran % (Auto) 0.400, Neut % (Auto) 90.9 H, Lymph % (Auto) 5.4 L, [place] % (Auto) 2.5, Eos % (Auto) 0.5, Baso % (Auto) 0.3, Absolute Neuts (auto) 7.3, Absolute Lymphs (auto) 0.43 L, Nucleated RBC % 0, PT 13.7, INR 1.0, APTT 30.6, Sodium 136, Potassium 3.6, Chloride 104, Carbon Dioxide 23.0, Anion Gap 9, BUN 21 H, Creatinine 1.09 H, Estim Creat Clear Calc 26.12, Est GFR (MDRD) Af Amer 61, Est GFR (MDRD) Non-Af 50 L, BUN/Creatinine Ratio 19.3, Glucose 299 H, Lactic Acid 2.9 H*, Calcium 10.0, Total Bilirubin 1.40 H, AST 528 H, ALT 321 H, Alkaline Phosphatase 293 H, Total Protein 8.7 H, Albumin 3.3, Globulin 5.4 H, Albumin/Globulin Ratio 0.6 L 10/05/23 20:15: Urine Color Yellow, Urine Clarity Clear, Urine pH 6.0, Ur Specific [place] 1.010, Urine Protein 500 H, Urine Glucose (UA) 100 H, Urine Ketones Negative, Urine Occult Blood 25 H, Urine Nitrite Negative, Urine Bilirubin Negative, Urine Urobilinogen Normal, Ur Leukocyte Esterase 500 H, Urine RBC 0 SEEN, Urine WBC 10-25 SEEN, Ur Squamous Epith Cells 0 SEEN, Urine Bacteria 0 SEEN, Urine Mucus 0 SEEN Micro: Microbiology 10/05/23 19:50 Mucosa - Nose SARS-CoV-2, Influenza & RSV (PCR) - Final Imaging Radiology Impression Abdomen/Pelvis CT 10/05/23 19:24 IMPRESSION: Nonspecific gallbladder distention with wall thickening/edema. Consider further evaluation by gallbladder ultrasound. Abnormal biliary distention with 14 mm common bile duct, no calcified bile duct calculus. 9 mm hyperdense right cortical cystic lesion. Although almost definitely benign six-month follow-up recommended for stability. Electronically Signed: Dick Aleman MD at 20:40 EST , Chest X-Ray 10/05/23 19:59 IMPRESSION: No radiographic evidence of acute cardiopulmonary disease. Electronically Signed: Dick Aleman MD at 20:28 EST , Gallbladder Ultrasound 10/05/23 21:03 IMPRESSION: Gallbladder sludge and mild pericholecystic fluid. No sonographic findings of definite acute cholecystitis. Dilated common bile duct without identifiable obstructing calculus. Electronically Signed: Dick Aleman MD at 22:58 EST , Assessment & Plan Assessment/Plan (1) Acute cholecystitis with acute cholangitis: PLAN: Plan This is a 88-year-old female being admitted for nausea vomiting and high-grade fever. 1. High probability of sepsis due to hepatobiliary origin: Patient is being admitted on the monitored bed. The patient presented with sepsis with clinical indicators of high-grade fever, tachycardia due to priority of hepatobiliary sepsis with acute sepsis-related organ dysfunction as evidenced by lactic acidosis 2.9, total bilirubin 1.4 with elevated liver chemistry, alkaline phosphatase 293, ALT 321, AST 528. CT abdomen and right upper quadrant individually reviewed. Shows 14 mm dilated CBD with nonspecific GB distention and wall thickening. Although patient did not had abdominal pain but there is right upper quadrant tenderness/Ramos sign positive, fever and jaundice therefore high probability of cholangitis. Started on IV Zosyn and IV fluid. GI and general surgery consulted. MRCP ordered to further delineate hepatobiliary anatomy and possible retained stone or patient might have passed a stone. 2. Hypertensive urgency: Blood pressure was elevated 200/58, heart rate 126/min but later on improved spontaneously to heart rate 113/min, blood pressure 139/39 with IV fluid resuscitation. Monitor vital signs and treat accordingly. 3. Diabetes mellitus type 2: Clear liquid. Accu-Chek ACH cover with Humalog sliding scale. Hold oral hypoglycemic agent. 4. Severe protein calorie malnutrition, chronic: Anesthesiologist And Critical Care consult. Ensure supplementation. 5. CKD stage IV: Last hospitalization for diarrhea, urine retention and MERCEDES: Patient was admitted for 3 days in May 2023. UTI was ruled out. MERCEDES improved. Currently patient denies dysuria or burning micturition but she has history of UTI in the past. BUNs/creatinine 21/1.09, estimated creatinine clearance 26 mL per minute. Usually her creatinine stays 1.0-1.1 at her baseline. MERCEDES ruled out. DVT prophylaxis, high risk: Lovenox 30 mg subcu daily. Discontinue if platelet count drops less than 50,000 or hemoglobin less than 8 g% Living will/advanced directive/end of life care: Patient doeshave living will or advanced directive. Her daughter present in ED is healthcare power of filer repairer and next of kin. Patient lives with her daughter. After discussion of benefits/risks procedures involved with full code, DNR CC arrest and DNR CC, the patient and her daughter opted for full code. Patient does want artificial life support including intubation, tube feed, ventilator and/chest compression, central venous catheter, vasopressor and DC shock if needed Total time spent in [id number] encounter in discussion of advanced directive 17 minutes. Microbiology Past 72 Hours 10/05/23 19:50 Mucosa - Nose SARS-CoV-2, Influenza & RSV (PCR) - Final Laboratory Results 10/05/23 19:33: WBC 8.0, RBC 3.94 L, Hgb 10.5 L, Hct 33.9 L, MCV 86.0, MCH 26.6 L, MCHC 31.0 L, RDW Std Deviation 43.7, RDW Coeff of Alanna 13.8, Plt Count 282, MPV 9.8, Immature Gran % (Auto) 0.400, Neut % (Auto) 90.9 H, Lymph % (Auto) 5.4 L, [place] % (Auto) 2.5, Eos % (Auto) 0.5, Baso % (Auto) 0.3, Absolute Neuts (auto) 7.3, Absolute Lymphs (auto) 0.43 L, Nucleated RBC % 0, PT 13.7, INR 1.0, APTT 30.6, Sodium 136, Potassium 3.6, Chloride 104, Carbon Dioxide 23.0, Anion Gap 9, BUN 21 H, Creatinine 1.09 H, Estim Creat Clear Calc 26.12, Est GFR (MDRD) Af Amer 61, Est GFR (MDRD) Non-Af 50 L, BUN/Creatinine Ratio 19.3, Glucose 299 H, Lactic Acid 2.9 H*, Calcium 10.0, Total Bilirubin 1.40 H, AST 528 H, ALT 321 H, Alkaline Phosphatase 293 H, Total Protein 8.7 H, Albumin 3.3, Globulin 5.4 H, Albumin/Globulin Ratio 0.6 L 10/05/23 20:15: Urine Color Yellow, Urine Clarity Clear, Urine pH 6.0, Ur Specific [place] 1.010, Urine Protein 500 H, Urine Glucose (UA) 100 H, Urine Ketones Negative, Urine Occult Blood 25 H, Urine Nitrite Negative, Urine Bilirubin Negative, Urine Urobilinogen Normal, Ur Leukocyte Esterase 500 H, Urine RBC 0 SEEN, Urine WBC 10-25 SEEN, Ur Squamous Epith Cells 0 SEEN, Urine Bacteria 0 SEEN, Urine Mucus 0 SEEN Clinical Impression(s) from Imaging Studies Abdomen/Pelvis CT 10/05/23 19:24 IMPRESSION: Nonspecific gallbladder distention with wall thickening/edema. Consider further evaluation by gallbladder ultrasound. Abnormal biliary distention with 14 mm common bile duct, no calcified bile duct calculus. 9 mm hyperdense right cortical cystic lesion. Although almost definitely benign six-month follow-up recommended for stability. Chest X-Ray 10/05/23 19:59 IMPRESSION: No radiographic evidence of acute cardiopulmonary disease. Gallbladder Ultrasound 10/05/23 21:03 IMPRESSION: Gallbladder sludge and mild pericholecystic fluid. No sonographic findings of definite acute cholecystitis. Dilated common bile duct without identifiable obstructing calculus. Charges/Coding Visit Charges Inpatient E&M: 99653 Init Hosp L3 Multi Select Codes Visit Charges Visit Charges: 25398 Init Hosp L3
[2023-10-06] VITALS (15 sets, daily range): BP systolic 110–133; BP diastolic 34–89; PULSE 82–107; RESP 15–30; TEMP 36.1–38.2; O2SAT 85–100; BMI 19.3; BMI 19.4
--- OUTSIDE RECORDS SUMMARY | 2023-10-06 00:29 | XMS RPT_ITS | CCD ---
Author Name Unknown Address [address] [place] [address] Organization [facility] Care Team Providers Care Production Mechanic Tin Cans Name Role Phone Reese Sharif MD Primary Care Provider LIA GUERRERO Attending Unavailable REESE SHARIF Primary Care Unavailable ERESE SHARIF Primary Care Unavailable REESE SHARIF Primary Care Unavailable REESE SHARIF Attending Unavailable Reese Sharif MD Primary Care Provider Allergies Allergy Classification Reported Allergen(s) Allergy Type Date of Onset Reaction(s) Facility (20 sources) Betaxolol; Translations: [BETAXOLOL HCL] Drug Allergy 04-17-2005 Swelling, Itching [facility] Work Phone: (20 sources) brimonidine; Translations: [BRIMONIDINE TARTRATE] Drug Allergy 04-17-2005 Swelling, Itching [facility] Work Phone: (20 sources) Cephalexin; Translations: [CEPHALEXIN] Drug Allergy 04-16-2005 Rash [facility] Work Phone: (20 sources) nabumetone; Translations: [NABUMETONE] Drug Allergy 04-16-2005 Rash [facility] Work Phone: Medications Current Medications Medication [...] 14:23-0500 Body weight 45.09 kg Lia Guerrero APRN.JEWELRY DESIGNER Work Phone: [facility] 07-15-2023 14:23-0500 Diastolic blood pressure 50 mm[Hg] Lia Guerrero EVENT MARKETING ASSISTANT.JEWELRY DESIGNER Work Phone: [facility] 07-15-2023 14:23-0500 Heart rate 98 /min Lia Guerrero EVENT MARKETING ASSISTANT.JEWELRY DESIGNER Work Phone: [facility] 07-15-2023 14:23-0500 Systolic blood pressure 128 mm[Hg] Lia Guerrero EVENT MARKETING ASSISTANT.JEWELRY DESIGNER Work Phone: [facility] 12-02-2022 16:19-0400 Body temperature 97.59 [degF] Reese Sharif MD Work Phone: [facility] 12-02-2022 16:19-0400 Body weight 53.52 kg Reese Sharif MD Work Phone: [facility] 12-02-2022 16:19-0400 Diastolic blood pressure 68 mm[Hg] Reese Sharif MD Work Phone: [facility] 12-02-2022 16:19-0400 Heart rate 91 /min Reese Sharif MD Work Phone: [facility] 12-02-2022 16:19-0400 Respiratory rate 18 /min Reese Sharif MD Work Phone: [facility] 12-02-2022 16:19-0400 SaO2% (BldA) [Mass fraction] 97 % Reese Sharif MD Work Phone: [facility] 12-02-2022 16:19-0400 Systolic blood pressure 142 mm[Hg] Reese Sharif MD Work Phone: [facility] 06-18-2022 08:41-0400 Diastolic blood pressure 53 mm[Hg] Lia Guerrero EVENT MARKETING ASSISTANT.JEWELRY DESIGNER Work Phone: [facility] 06-18-2022 08:41-0400 Systolic blood pressure 137 mm[Hg] Lia Guerrero EVENT MARKETING ASSISTANT.JEWELRY DESIGNER Work Phone: [facility] 06-18-2022 08:37-0400 Body weight 53.07 kg Lia Guerrero EVENT MARKETING ASSISTANT.JEWELRY DESIGNER Work Phone: [facility] 06-18-2022 08:37-0400 Heart rate 77 /min Lia Guerrero EVENT MARKETING ASSISTANT.JEWELRY DESIGNER Work Phone: [facility] 06-18-2022 08:37-0400 Respiratory rate 16 /min Lia Guerrero EVENT MARKETING ASSISTANT.JEWELRY DESIGNER Work Phone: [facility] 12-17-2021 09:22-0400 Diastolic blood pressure 52 mm[Hg] Reese Sharif MD Work Phone: [facility] 12-17-2021 09:22-0400 Systolic blood pressure 128 mm[Hg] Reese Sharif MD Work Phone: [facility] 12-17-2021 08:49-0400 Body weight 53.07 kg Reese Sharif MD Work Phone: [facility] 12-17-2021 08:49-0400 Heart rate 84 /min Reese Sharif MD Work Phone: [facility] Encounters Encounter Date Encounter Type Care Provider Facility Start: 07-28-2023 Refill Reese burgos MD Work Phone: [facility] [place] Procedures Date Procedure Procedure Detail Performing Clinician Start: 05-24-2023 INFLUENZA VACCINE, P RSV FREE, AGE 65+ YR, HIGH DOSE, QUADRIVALENT (FLUZONE HIGH-DOSE) Michael Kimbrough MD Work Phone: Start: 06-18-2022 INFLUENZA SEASONAL QUADRIVALENT HIGH DOSE AGE 65+ Lia Guerrero EVENT MARKETING ASSISTANT.JEWELRY DESIGNER Work Phone: Plan of Treatment Date Care Activity Detail Author Start: 09-22-2023 End: 06-25-2024 Basic metabolic 2000 panel - Serum or Plasma BASIC METABOLIC PNL Lab Routine [facility]CEDES (acute kidney injury) (HCC) Hypoglycemia Expected: 09/22/2023 (Approximate), Expires: 06/25/2024 [facility] Work Phone: Immunizations Immunization Date Immunization Notes Care Provider Fa cili 05-24-2023 influenza (HD-IIV4) vaccine, age 65+ yr, high dose, quadrivalent, PF (FLUZONE HIGH-DOSE) Immunization Leora Work Phone: [facility] 06-18-2022 influenza, high-dose , quadrivalent vaccine (FLUZONE HIGH DOSE QUADRIVALENT) Lia Guerrero JEWELRY DESIGNER Work Phone: [facility] Work Phone: 05-30-2021 influenza, high-dose , quadrivalent vaccine (FLUZONE HIGH DOSE QUADRIVALENT) Reese Sharif MD Work Phone: [facility] Work Phone: 02-12-2021 COVID-19 vaccine, fu ll dose (MODERNA) Reese Sharif MD Work Phone: [facility] Work Phone: 01-15-2021 COVID-19 vaccine, fu ll dose (MODERNA) Reese Sharif MD Work Phone: [facility] Work Phone: 06-09-2020 influenza, high-dose , quadrivalent vaccine (FLUZONE HIGH DOSE QUADRIVALENT) Reese Sharif MD Work Phone: [facility] Work Phone: 05-13-2019 influenza, high dose seasonal, preservative-free Reese Sharif MD Work Phone: [facility] 05-23-2018 influenza, high dose seasonal, preservative-free Reese Sharif MD Work Phone: [facility] 05-12-2017 influenza, high dose seasonal, preservative-free Reese Sharif MD Work Phone: [facility] 06-15-2016 influenza, high dose seasonal, preservative-free Reese Sharif MD Work Phone: [facility] 06-27-2015 influenza, high dose seasonal, preservative-free Reese Sharif MD Work Phone: [facility] 02-08-2015 pneumococcal conjuga te vaccine, 13 valent Reese Sharif MD Work Phone: [facility] 06-02-2014 influenza, seasonal, injectable Reese Sharif MD Work Phone: [facility] 07-10-2013 influenza virus vaccine, unspecified formulation Reese Sharif MD Work Phone: [facility] Work Phone: 02-08-2013 pneumococcal polysaccharide vaccine, 23 valent Reese Sharif MD Work Phone: [facility] 05-16-2012 influenza virus vaccine, unspecified formulation Reese Sharif MD Work Phone: [facility] Work Phone: 05-25-2011 influenza virus vaccine, unspecified formulation Reese Sharif MD Work Phone: [facility] Work Phone: 05-20-2009 influenza virus vaccine, unspecified formulation Reese Sharif MD Work Phone: [facility] Work Phone: 06-29-2008 influenza virus vaccine, unspecified formulation Reese Sharif MD Work Phone: [facility] Work Phone: 06-22-2007 influenza virus vaccine, unspecified formulation Reese Sharif MD Work Phone: [facility] Work Phone: 06-25-2006 influenza virus vaccine, unspecified formulation Reese Sharif MD Work Phone: [facility] 07-25-2004 tetanus and diphther ia toxoids, not adsorbed, for adult use Reese Sharif MD Work Phone: [facility] Work Phone: 07-11-2000 pneumococcal polysaccharide vaccine, 23 valent Reese Sharif MD Work Phone: [facility] Payers Date Payer Category Payer Medicare [id number] 2015 Private Health Insurance HU[employer]NA HUMANA MEDICARE SUPPLEMENT [id number] 2015-Present [phone] [address] [address] [place] [address] Indemnity [id number] 2015 Private Health Insurance HUMANA HUMANA MEDICARE SUPPLEMENT [id number] 2015-Present [phone] [address] [address] [place] [address] Indemnity [id number] 2001 Medicare MEDICARE MEDICAR E A AND B [id number] 2001-Present [phone] [address] [address] [place] [address] Medicare [id number] 2001 Medicare MEDICARE MEDICAR E A AND B [id number] 2001-Present [phone] [place] [address] Medicare [id number] 2001 Medicare [id number] Social History Date Type Detail Facility Start: [facility]22 [facility] End: 08-12-1970 History of tobacco use Current smoker [facility] End: 08-12-1970 History of tobacco use Cigarette Smoker [facility] Start: 08-06-2021 End: 07-15-2023 Alcohol intake Current non-drinker of alcohol (finding) [facility] Start: 1935 Sex Assigned At Not on file [facility] Start: 11-20-2021 End: 06-18-2022 Exposure to SARS-CoV-2 (event) Not sure [facility] Start: 06-18-2022 End: 05-24-2023 Cigarettes smoked current (pack per day) - Reported 1 [facility] Work Phone: Start: 06-18-2022 Tobacco use and exposure Smokeless tobacco non-user [facility] Work Phone: Start: 12-02-2022 End: 05-24-2023 Tobacco use panel [facility] Work Phone: Adult Depression Screening Assessment 0 [facility] Work Phone: Medical Equipment Procedure Code [...] Zari Wilks Pss documented in this encounter [facility] 07-18-2023 Miscellaneous Notes Below noted BP okay. Has had BP 128/50 in office. Cecilia- - [facility]- reporting an out of range BP for patient: 125/46 (92). Reports patient reports she is drinking a lot of water, no dizziness/lightheadedness. Reports patient is asymptomatic. Reports PT will see patient this afternoon, and will call pcp with BP reading if out of range. documented in this encounter [facility] 07-15-2023 Note HNO ID: [id number] Author: Lia Guerrero APRN.JEWELRY DESIGNER Service: ? Author Type: Nurse Specialist Type: [...] discharge follow-up visit. She was admitted to [facility] June 19 through June 22, 2023. She [...] daughter July 09, 2023. She has had [facility] home health care providing services. Living with [...] Constitutional: Negative. Respiratory: (more content not included)... [facility] 07-15-2023 Instructions Lia Guerrero APRN.JEWELRY DESIGNER - 07/15/2023 2:55 PM EST Check your blood sugar once daily in the morning for now. If your blood sugar is 200 or greater take one 500 mg metformin with breakfast. If you are feeling ill with nausea vomiting diarrhea and are not eating do not take metformin. . documented in this encounter [facility] 07-15-2023 History of Presen t illness [...] discharge follow-up visit. She was admitted to [facility] June 19 through June 22, 2023. She [...] daughter July 09, 2023. She has had [facility] home health care providing services. 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 Okay orders as noted Ronel from [facility] Home Health PT calling asking for verbal orders for skilled nurse and Social Work. Patient needs assist with medications and medication and disease education and what assistance is available. Please advise documented in this encounter [facility] 07-11-2023 Miscellaneous Notes Noted, okay Ronel, PT @ [facility] calling with plan of care. PT will see patient 1 x/week for one week and 2 x/week for four weeks for strength, gait and transfer training and fall prevention. If agree, no call back needed. Aria Avalos RN documented in this encounter [facility] 07-10-2023 Miscellaneous Notes Tried to call Ella, left detailed message on secure voicemail that provider willing to follow orders and if Ella has any questions to give nursing a call back. Adwoa Barajas RN Will follow Ella from [facility] calls and states that patient is being discharged from [facility] today with the diagnosis of acute kidney injury and hypoglycemia. Ella asking if provider willing to follow patient with orders for physical therapy and occupational therapy. Home Health planning to start care on 07/10/2023. If agreeable please give Ella a call back . Thank you, Adwoa Barajas, RN documented in this encounter [facility] 06-18-2023 Miscellaneous Notes Noted, agree Cecilia TAYLOR from [facility] calling in with plan for both OT [...] to return call. documented in this encounter [facility] 06-17-2023 Miscellaneous Notes Detailed message was left of approvals. Please return call with verbal ok for both requests. Thanks! Adwoa with [facility] Nursing calling with 3 items: Requesting approval [...] with reply to #1 and #2 at [phone]. Thank you. documented in this encounter [facility] 06-13-2023 Miscellaneous Notes Left detailed message on Rhona VM. [place] [facility] Rhona from [facility] calls and states that patient is being discharged from [facility] this weekend with the diagnosis of severe sepsis secondary to UTI. Rhona asking if provider willing to follow patient with orders for long term, physical therapy, and occupational therapy. Rhona also asking for provider to ok start of care on 06/17/2023. If agreeable please give Rhona a call back [phone]. Thank you, Adwoa Barajas RN documented in this encounter [facility] 06-10-2023 Note HNO ID: [id number] Author: Ella Vitale Service: ? Author Type: ? Type: Progress Notes Filed: 06/10/2023 4:26 PM Note Text: POPULATION HEALTH NAVIGATION OUTREACH Action/ 1st attempt: Left message for patient including my direct number HCC GAPS E11.51 - Type 2 diabetes mellitus with diabetic peripheral angiopathy without gangrene, without long-term current use of insulin ([facility]) - [id number] Last Billed 06/18/2022 I73.9 - PAD (peripheral artery disease) ([facility]) - [id number] Last Billed 06/18/2022 E11.49 - Type 2 diabetes mellitus with neurologic complication, without long-term current use of insulin ([facility]) - [id number] Last Billed 06/18/2022 Care Gaps Annual Wellness [...] Ella Vitale June 10, 2023 4:25 PM [facility] 06-10-2023 History of Presen t illness Narrative POPULATION HEALTH NAVIGATION OUTREACH Action/ 1st attempt: Left message for patient including my direct number HCC GAPS E11.51 - Type 2 diabetes mellitus with diabetic peripheral angiopathy without gangrene, without long-term current use of insulin ([facility]) - [id number] Last Billed 06/18/2022 I73.9 - PAD (peripheral artery disease) ([facility]) - [id number] Last Billed 06/18/2022 E11.49 - Type 2 diabetes mellitus with neurologic complication, without long-term current use of insulin ([facility]) - [id number] Last Billed 06/18/2022 Care Gaps Annual Wellness [...] 2023 4:25 PM documented in this encounter [facility] 06-10-2023 Note Patient Outreach (NE TNAV) VERONICA PELLETIER ([id number]) 1935 F Date Time Provider Department 06/10/23 ELLA VITALE NETNAV During your visit today, we recorded the following information about you: Ella Vitale 06/10/2023 4:26 PM Signed POPULATION HEALTH NAVIGATION OUTREACH Action/ attempt: Left message for patient including my direct number [facility] GAPS E11.51 - Type 2 diabetes mellitus with diabetic peripheral angiopathy without gangrene, without long-term current use of insulin ([facility]) - [id number] Last Billed 06/18/2022 I73.9 - PAD (peripheral artery disease) ([facility]) - [id number] Last Billed 06/18/2022 E11.49 - Type 2 diabetes mellitus with neurologic complication, without long-term current use of insulin ([facility]) - [id number] Last Billed 06/18/2022 Care Gaps Annual Wellness [...] Encounter Status:Closed by ELLA VITALE on 06/10/23 [facility] 04-24-2023 Miscellaneous Notes Patient notified of providers [...] calling: self Call patient at: at home [phone] (home) [phone] (cell) Was an appointment scheduled: No Closing statement: Symptom Call: Thank you for calling [facility], your call is very important. A nurse will call in approximately 2-4 hours during business hours. If this is an emergency, please contact 911. Rossy Elder documented in this encounter [facility] 03-31-2023 Miscellaneous Notes Patient notified of [...] with meals for 7 days. Authorizing Provider: RESEE SHARIF MD Patient calling with concern that [...] may be able to be evaluated at [facility] this evening but she is not sure. States she most likely won't have transportation until Monday 04/02. Pt asking if Dr. Sharif could help her today, without appt. Please advise patient. Thank you. documented in this encounter [facility] 02-27-2023 Miscellaneous Notes DELMIS: 12/02/2022 Last [...] patient. Zarina Elder documented in this encounter [facility] 12-02-2022 Note HNO ID: [id number] Author: Reese Sharif MD Service: ? Author Type: Physician Type: Progress Notes Filed: 12/04/2022 10:43 AM Note Text: This note was created using Carepeuticsriter. 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 Reese Sharif MD [facility] 12-02-2022 History of Presen t illness Narrative Images from the original note were not included. This note was created using Carepeuticsriter. 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 documented in this encounter [facility] 06-18-2022 Instructions Lia Guerrero APRN.PAULIE - 06/18/2022 9:05 AM EDT Schedule appointment with Dr See documented in this encounter [facility] 06-18-2022 History of Presen t illness [...] 7.5 04/09/2021 7.5 ) Dr. See in [place] eye doctor, overdue for follow up. 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 Osteopenia Diagnosed on [facility] BMD in 2002; WNL since then Other [...] Abs Lymph 1.00 - 4.00 k/uL 2.05 Waldo% % 8.0 Abs Waldo <0.87 k/uL 0.76 Eosin% % 1.2 Abs [...] Review (MPA) Reviewed by Jessenia Miller MD [place] Free, Serum 3.3 - 19.4 mg/L 54.9 [...] eye doctor Would like to go to [facility] routine follow up - GLIMEPIRIDE 2 [...] prior to visit - MD Lia Sandhu APRN.JEWELRY DESIGNER Medical Decision Making: Problems: Moderate: 2+ stable chronic illnesses Data: Unique test(s) ordered: 3+ Risk: Moderate: Drug management Medical Decision Making Level: 4 - Moderate documented in this encounter [facility] 02-19-2022 Miscellaneous Notes Last OV: 12/17/2021 [...] Zari Wilks Pss documented in this encounter [facility] 12-17-2021 History of Presen t illness Narrative This note was created using Carepeuticsriter. 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 - Continue current medications - URINALYSIS, WITH MICROSCOPIC - HGB A1C - COMP METABOLIC PANEL - CBC - PROTEIN CREATININE RATIO 2. Type 2 diabetes mellitus with diabetic peripheral angiopathy without gangrene, without long-term current use of insulin ([facility]) - ICD9: 250.70, 443.81, ICD10: E11.51 Continue present management. 3. PAD (peripheral artery disease) ([facility]) - ICD9: 443.9, ICD10: I73.9 Continue present [...] Reese Sharif MD documented in this encounter [facility] 11-30-2021 Miscellaneous Notes Patient has been identified by name and date of : Yes Pending Prescriptions Disp Refills GLIMEPIRIDE 2 MG TABLET 90 tablet 3 Sig: Take 1 tablet by mouth daily with breakfast. As directed ABBY: No RX INSTRUCTIONS: Patient aware RX will be sent to pharmacy. No need to notify patient. Zarina Caro Pss documented in this encounter [facility] documented as of this encounter (statuses as of 02/19/2022) [facility] History of Past illness Narrative* Problem [...] of this encounter (statuses as of 02/20/2022) [facility] History of Past illness Narrative* Problem [...] of this encounter (statuses as of 06/18/2022) [facility] History of Past illness Narrative* Problem [...] of this encounter (statuses as of 06/18/2022) [facility] History of Past illness Narrative* Problem [...] of this encounter (statuses as of 12/05/2022) [facility] History of Past illness Narrative* Problem [...] of this encounter (statuses as of 02/28/2023) [facility] History of Past illness Narrative* Problem [...] of this encounter (statuses as of 03/31/2023) [facility] History of Past illness Narrative* Problem [...] of this encounter (statuses as of 04/24/2023) [facility] History of Past illness Narrative* Problem [...] of this encounter (statuses as of 05/24/2023) [facility] History of Past illness Narrative* Problem [...] of this encounter (statuses as of 06/11/2023) [facility] History of Past illness Narrative* Problem [...] of this encounter (statuses as of 06/13/2023) [facility] of Past illness Narrative* Problem [...] of this encounter (statuses as of 06/18/2023) [facility] History of Past illness Narrative* Problem [...] of this encounter (statuses as of 06/19/2023) [facility] of Past illness Narrative* Problem [...] of this encounter (statuses as of 07/10/2023) [facility] of Past illness Narrative* Problem [...] of this encounter (statuses as of 07/11/2023) [facility] History of Past illness Narrative* Problem [...] of this encounter (statuses as of 07/16/2023) [facility] History of Past illness Narrative* Problem [...] of this encounter (statuses as of 07/19/2023) [facility] History of Past illness Narrative* Problem [...] of this encounter (statuses as of 07/29/2023) [facility] History of Past illness Narrative* Problem Noted Date Resolved Date 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 Overview: Uric acid 5.8 in 7-08, 6-09 Unspecified essential hypertension 04/16/2005 11/22/2005 Other abnormal blood chemistry 04/16/2005 0 11/22/2005 documented as of this encounter (statuses as of 11/30/2021) [facility] Controlled type 2 diabetes mellitus without complication, without long-term current use of insulin ([facility]) [facility] Diagnosis Type 2 diabetes mellitus with [...] B12 deficiency anemia [facility] Hypertension goal BP (blood pressure) < 150/90 Unspecified essential hypertension Iron deficiency anemia, unspecified iron deficiency anemia type [facility] Diagnosis Type 2 diabetes mellitus with [...] anemia Albuminuria Proteinuria [facility] Diagnosis Hypercalcemia- Primary Abnormal SPEP Other nonspecific findings on examination of blood documented in this encounter [facility] note* Diagnosis Non-healing skin lesion of nose- Primary Other diseases of nasal cavity and sinuses Controlled type 2 diabetes mellitus without complication, without long-term current use of insulin ([facility]) [facility] Diagnosis Hypertension goal BP (blood pressure) < 150/90 Unspecified essential hypertension [facility] Diagnosis Dysuria [facility] Diagnosis Dysuria [facility] Diagnosis Hypoglycemia- Primary Hypoglycemia, unspecified MERCEDES (acute kidney injury) (HCC) Acute kidney failure, unspecified Diarrhea, unspecified type Debility Debility, unspecified Type 2 diabetes mellitus with diabetic peripheral angiopathy without gangrene, without long-term current use of insulin (HCC) Hypertension goal BP (blood pressure) < 150/90 Unspecified essential hypertension documented in this encounter [facility] Advance Directives Documents on File Type Date Recorded Patient Home Care Provider Expl anation Advance Directive(s) 04/05/2020 7:19 AM Advance Directive(s) 03/27/2020 5:47 PM Advance Directive(s) 04/22/2016 1:16 PM Advance Directive(s) 04/01/2016 9:15 AM Reason for Referral Specialty Diagnoses / Procedures Referred By Contac t Referred To Contact Diagnoses Hypercalcemia Abnormal SPEP Procedures CONSULT TO HEMATOLOGY/ONCOLOGY OFFICE/OUTPATIENT NEW HIGH MDM 60-74 MINUTES Reese Sharif MD [address] [place] [address] Referral ID Status Reason Start Date Expiration Date Visits Requested Visits Authorized [id number] Authorized PCP Requested Referral 2 06/18/2023 1 1 Specialty Diagnoses / Procedures Referred By Contac t Referred To Contact Dermatology Diagnoses Non-healing skin lesion of nose Procedures CONSULT TO DERMATOLOGY Reese Sharif MD [address] [place] [address] [employer] [address] [place] [address] Referral ID Status Reason Start Date Expiration Date Visits Requested Visits Authorized [id number] Ref Not Required PCP Requested Referral 12/02/2022 [...] or prosecute any alcohol or drug abuse patient.[facility] the event this information is protected by the Federal Confidentiality of Alcohol and Drug Abuse Patient Records regulations: The Federal rules restrict any use of the information to criminally investigate or prosecute any alcohol or drug abuse patient.[facility] the event this information is protected by the Federal Confidentiality of Alcohol and Drug Abuse Patient Records regulations: The Federal rules restrict any use of the information to criminally investigate or prosecute any alcohol or drug abuse patient.[facility] the event this information is protected by the Federal Confidentiality of Alcohol and Drug Abuse Patient Records regulations: The Federal rules restrict any use of the information to criminally investigate or prosecute any alcohol or drug abuse patient.[facility] the event this information is protected by the Federal Confidentiality of Alcohol and Drug Abuse Patient Records regulations: The Federal rules restrict any use of the information to criminally investigate or prosecute any alcohol or drug abuse patient.[facility] the event this information is protected by the Federal Confidentiality of Alcohol and Drug Abuse Patient Records regulations: The Federal rules restrict any use of the information to criminally investigate or prosecute any alcohol or drug abuse patient.[facility] the event this information is protected by the Federal Confidentiality of Alcohol and Drug Abuse Patient Records regulations: The Federal rules restrict any use of the information to criminally investigate or prosecute any alcohol or drug abuse patient.[facility] the event this information is protected by the Federal Confidentiality of Alcohol and Drug Abuse Patient Records regulations: The Federal rules restrict any use of the information to criminally investigate or prosecute any alcohol or drug abuse patient.[facility] the event this information is protected by the Federal Confidentiality of Alcohol and Drug Abuse Patient Records regulations: The Federal rules restrict any use of the information to criminally investigate or prosecute any alcohol or drug abuse patient.[facility] the event this information is protected by the Federal Confidentiality of Alcohol and Drug Abuse Patient Records regulations: The Federal rules restrict any use of the information to criminally investigate or prosecute any alcohol or drug abuse patient.[facility] the event this information is protected by the Federal Confidentiality of Alcohol and Drug Abuse Patient Records regulations: The Federal rules restrict any use of the information to criminally investigate or prosecute any alcohol or drug abuse patient.[facility] the event this information is protected by the Federal Confidentiality of Alcohol and Drug Abuse Patient Records regulations: The Federal rules restrict any use of the information to criminally investigate or prosecute any alcohol or drug abuse patient.[facility] the event this information is protected by the Federal Confidentiality of Alcohol and Drug Abuse Patient Records regulations: The Federal rules restrict any use of the information to criminally investigate or prosecute any alcohol or drug abuse patient.[facility] the event this information is protected by the Federal Confidentiality of Alcohol and Drug Abuse Patient Records regulations: The Federal rules restrict any use of the information to criminally investigate or prosecute any alcohol or drug abuse patient.[facility] the event this information is protected by the Federal Confidentiality of Alcohol and Drug Abuse Patient Records regulations: The Federal rules restrict any use of the information to criminally investigate or prosecute any alcohol or drug abuse patient.[facility] the event this information is protected by the Federal Confidentiality of Alcohol and Drug Abuse Patient Records regulations: The Federal rules restrict any use of the information to criminally investigate or prosecute any alcohol or drug abuse patient.[facility] the event this information is protected by the Federal Confidentiality of Alcohol and Drug Abuse Patient Records regulations: The Federal rules restrict any use of the information to criminally investigate or prosecute any alcohol or drug abuse patient.[facility] the event this information is protected by the Federal Confidentiality of Alcohol and Drug Abuse Patient Records regulations: The Federal rules restrict any use of the information to criminally investigate or prosecute any alcohol or drug abuse patient.[facility] the event this information is protected by the Federal Confidentiality of Alcohol and Drug Abuse Patient Records regulations: The Federal rules restrict any use of the information to criminally investigate or prosecute any alcohol or drug abuse patient.[facility] the event this information is protected by the Federal Confidentiality of Alcohol and Drug Abuse Patient Records regulations: The Federal rules restrict any use of the information to criminally investigate or prosecute any alcohol or drug abuse patient.[facility] Reason for Visit (unrecogniz ed section [...] Reason Comments Home Health Orders Reason Comments [facility] Nursing Call Reason Comments Home Health update Reason Comments Home Health orders Reason Comments FYI-PT plan of care Reason Comments Orders Reason Comments Hospital F/U Reason Comments Patient Update Reason Comments Refill Request Care Teams (unrecognized sec tion and content) [employer] Relationship Specialty Start Date End Date Reese Sharif MD [address] [place] [address] PCP - General 10/02/09 [employer] Relationship Specialty Start Date End Date Reese Sharif MD [address] [facility] [place] [address] PCP - General 10/02/09 [employer] Relationship Specialty Start Date End Date Reese Sharif MD [address] [facility] [place] [place] [address] PCP - General 10/02/09 [employer] Relationship Specialty Start Date End Date Reese Sharif MD [address] [facility] [place] [place] [address] PCP - General 10/02/09 [employer]ic [employer] Relationship Specialty Start Date End Date Reese Sharif MD [address] [facility] [place] [place] [address] PCP - General 10/02/09 [employer]ic [employer] Relationship Specialty Start Date End Date Reese Sharif MD [address] [facility] [place] [address] PCP - General 10/02/09 [employer] Relationship Specialty Start Date End Date Reese Sharif MD [address] [facility] [place] [address] PCP - General 10/02/09 [employer]ic [employer] Relationship Specialty Start Date End Date Reese Sharif MD [address] [facility] [place] [address] PCP - General 10/02/09 [employer] Relationship Specialty Start Date End Date Reese Sharif MD [address] [place], [place] [id number] PCP - General 10/02/09 [employer]ic [employer] Relationship Specialty Start Date End Date Reese Sharif MD [address] [place], [place] [id number] PCP General 10/02/09 [employer] Relationship Specialty Start Date End Date Reese Sharif MD [address] [place], [place] [id number] PCP [facility] 10/02/09 Production [employer]ic [employer] Relationship Specialty Start Date End Date Reese Sharif MD [address] [place], [place] [id number] [facility] 10/02/09 INFORMATION SOURCE (unrecogn ized section [...] BE BASED ON THE PRIMARY CLINICAL RECORDS. [facility] [employer] [facility]. provides no warranty or guarantee of the accuracy or completeness of information in this document.
--- OUTSIDE RECORDS SUMMARY | 2023-10-06 01:55 | XMS RPT_ITS | CCD ---
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 Name Role Phone Reese Sharif MD Primary Care Provider LIA GUERRERO Attending Unavailable REESE SHARIF Primary Care Unavailable REESE SHARIF Primary Care Unavailable REESE SHARIF Primary Care Unavailable REESE SHARIF Attending Unavailable Reese Sharif MD Primary Care Provider Allergies Allergy Classification Reported Allergen(s) Allergy Type Date of Onset Reaction(s) Facility (20 sources) Betaxolol; Translations: [BETAXOLOL HCL] Drug Allergy 04-17-2005 Swelling, Itching [facility] Work Phone: (20 sources) brimonidine; Translations: [BRIMONIDINE TARTRATE] Drug Allergy 04-17-2005 Swelling, Itching [facility] Work Phone: (20 sources) Cephalexin; Translations: [CEPHALEXIN] Drug Allergy 04-16-2005 Rash [facility] Work Phone: (20 sources) nabumetone; Translations: [NABUMETONE] Drug Allergy 04-16-2005 Rash [facility] Work Phone: Medications Current Medications Medication Drug [...] 14:23-0500 Body weight 45.09 kg Lia Guerrero APRN.[employer] Work Phone: [facility] 07-15-2023 14:23-0500 Diastolic blood pressure 50 mm[Hg] Lia Guerrero SKIN DRIER.[employer] Work Phone: [facility] 07-15-2023 14:23-0500 Heart rate 98 /min Lia Guerrero SKIN DRIER.[employer] Work Phone: [facility] 07-15-2023 14:23-0500 Systolic blood pressure 128 mm[Hg] Lia Guerrero SKIN DRIER.[employer] Work Phone: [facility] 12-02-2022 16:19-0400 Body temperature 97.59 [degF] Reese Sharif MD Work Phone: [facility] 12-02-2022 16:19-0400 Body weight 53.52 kg Reese Shairf MD Work Phone: [facility] 12-02-2022 16:19-0400 Diastolic blood pressure 68 mm[Hg] Reese Sharif MD Work Phone: [facility] 12-02-2022 16:19-0400 Heart rate 91 /min Reese Sharif MD Work Phone: [facility] 12-02-2022 16:19-0400 Respiratory rate 18 /min Reese Sharif MD Work Phone: [facility] 12-02-2022 16:19-0400 SaO2% (BldA) [Mass fraction] 97 % Reese Sharif MD Work Phone: [facility] 12-02-2022 16:19-0400 Systolic blood pressure 142 mm[Hg] Reese Sharif MD Work Phone: [facility] 06-18-2022 08:41-0400 Diastolic blood pressure 53 mm[Hg] Lia Guerrero SKIN DRIER.[employer] Work Phone: [facility] 06-18-2022 08:41-0400 Systolic blood pressure 137 mm[Hg] Lia Guerrero SKIN DRIER.[employer] Work Phone: [facility] 06-18-2022 08:37-0400 Body weight 53.07 kg Lia Guerrero SKIN DRIER.[employer] Work Phone: [facility] 06-18-2022 08:37-0400 Heart rate 77 /min Lia Guerrero SKIN DRIER.[employer] Work Phone: [facility] 06-18-2022 08:37-0400 Respiratory rate 16 /min Lia Guerrero SKIN DRIER.[employer] Work Phone: [facility] 12-17-2021 09:22-0400 Diastolic blood pressure 52 mm[Hg] Reese Sharif MD Work Phone: [facility] 12-17-2021 09:22-0400 Systolic blood pressure 128 mm[Hg] Reese Sharif MD Work Phone: [facility] 12-17-2021 08:49-0400 Body weight 53.07 kg Reese Sharif MD Work Phone: [facility] 12-17-2021 08:49-0400 Heart rate 84 /min Reese Sharif MD Work Phone: [facility] Encounters Encounter Date Encounter Type Care Provider Facility Start: 07-28-2023 Refill Reese burgos MD Work Phone: [facility] [place] Procedures Date Procedure Procedure Detail Performing Clinician Start: 05-24-2023 INFLUENZA VACCINE, P RSV FREE, AGE 65+ YR, HIGH DOSE, QUADRIVALENT (FLUZONE HIGH-DOSE) Michael Kimbrough MD Work Phone: Start: 06-18-2022 INFLUENZA SEASONAL QUADRIVALENT HIGH DOSE AGE 65+ Lia Guerrero SKIN DRIER.[employer] Work Phone: Plan of Treatment Date Care Activity Detail Author Start: 09-22-2023 End: 06-25-2024 Basic metabolic 2000 panel - Serum or Plasma BASIC METABOLIC PNL Lab Routine MERCEDES (acute kidney injury) (HCC) Hypoglycemia Expected: 09/22/2023 (Approximate), Expires: 06/25/2024 [facility] Work Phone: Immunizations Immunization Date Immunization Notes Care Provider Fa cili 05-24-2023 influenza (HD-IIV4) vaccine, age 65+ yr, high dose, quadrivalent, PF (FLUZONE HIGH-DOSE) Immunization Leora Work Phone: [facility] 06-18-2022 influenza, high-dose , quadrivalent vaccine (FLUZONE HIGH DOSE QUADRIVALENT) Lia Guerrero [employer] Work Phone: [facility] Work Phone: 05-30-2021 influenza, high-dose , quadrivalent vaccine (FLUZONE HIGH DOSE QUADRIVALENT) Reese Sharif MD Work Phone: [facility] Work Phone: 02-12-2021 COVID-19 vaccine, fu ll dose (MODERNA) Reese Sharif MD Work Phone: [facility] Work Phone: 01-15-2021 COVID-19 vaccine, fu ll dose (MODERNA) Reese Sharif MD Work Phone: [facility] Work Phone: 06-09-2020 influenza, high-dose , quadrivalent vaccine (FLUZONE HIGH DOSE QUADRIVALENT) Reese Sharif MD Work Phone: [facility] Work Phone: 05-13-2019 influenza, high dose seasonal, preservative-free Reese Sharif MD Work Phone: [facility] 05-23-2018 influenza, high dose seasonal, preservative-free Reese Sharif MD Work Phone: [facility] 05-12-2017 influenza, high dose seasonal, preservative-free Reese Sharif MD Work Phone: [facility] 06-15-2016 influenza, high dose seasonal, preservative-free Reese Sharif MD Work Phone: [facility] 06-27-2015 influenza, high dose seasonal, preservative-free Reese Sharif MD Work Phone: [facility] 02-08-2015 pneumococcal conjuga te vaccine, 13 valent Reese Sharif MD Work Phone: [facility] 06-02-2014 influenza, seasonal, injectable Reese Sharif MD Work Phone: [facility] 07-10-2013 influenza virus vaccine, unspecified formulation Reese Sharif MD Work Phone: [facility] Work Phone: 02-08-2013 pneumococcal polysaccharide vaccine, 23 valent Reese Sharif MD Work Phone: [facility] 05-16-2012 influenza virus vaccine, unspecified formulation Reese Sharif MD Work Phone: [facility] Work Phone: 05-25-2011 influenza virus vaccine, unspecified formulation Reese Sharif MD Work Phone: [facility] Work Phone: 05-20-2009 influenza virus vaccine, unspecified formulation Reese Sharif MD Work Phone: [facility] Work Phone: 06-29-2008 influenza virus vaccine, unspecified formulation Reese Sharif MD Work Phone: [facility] Work Phone: 06-22-2007 influenza virus vaccine, unspecified formulation Reese Sharif MD Work Phone: [facility] Work Phone: 06-25-2006 influenza virus vaccine, unspecified formulation Reese Sharif MD Work Phone: [facility] 07-25-2004 tetanus and diphther ia toxoids, not adsorbed, for adult use Reese Sharif MD Work Phone: [facility] Work Phone: 07-11-2000 pneumococcal polysaccharide vaccine, 23 valent Reese Sharif MD Work Phone: [facility] Payers Date Payer Category Payer Medicare [id number] 2015 Private Health Insurance HUMANA HUMANA MEDICARE SUPPLEMENT [id number] 2015-Present [phone] [address] [address] [place] [address] Indemnity [id number] 2015 Private Health Insurance HUMANA HUMANA MEDICARE SUPPLEMENT [id number] 2015-Present [phone] [address] [address] [place] [address] Indemnity [id number] 2001 Medicare MEDICARE MEDICAR E A AND B [id number] 2001-Present [phone] [address] [address] [place] [address] Medicare [id number] 2001 Medicare MEDICARE MEDICAR E A AND B [id number] 2001-Present [phone] [place] [address] Medicare [id number] 2001 Medicare [id number] Social History Date Type Detail Facility Start: 06-18-2022 [facility] End: 08-12-1970 History of tobacco use Current smoker [facility] End: 08-12-1970 History of tobacco use Cigarette Smoker [facility] Start: 08-06-2021 End: 07-15-2023 Alcohol intake Current non-drinker of alcohol (finding) [facility] Start: 1935 Sex Assigned At Not on file C [facility] Start: 11-20-2021 End: 06-18-2022 Exposure to SARS-CoV-2 (event) Not sure [facility] Start: 06-18-2022 End: 05-24-2023 Cigarettes smoked current (pack per day) - Reported 1 [facility] Work Phone: Start: 06-18-2022 Tobacco use and exposure Smokeless tobacco non-user [facility] Work Phone: Start: 12-02-2022 End: 05-24-2023 Tobacco use panel [facility] Work Phone: Adult Depression Screening Assessment 0 [facility] Work Phone: Medical Equipment Procedure Code Equipment [...] Zari Wilks Pss documented in this encounter [facility] 07-18-2023 Miscellaneous Notes Below noted BP okay. Has had BP 128/50 in office. Cecilia- - [facility]- reporting an out of range BP for patient: 125/46 (92). Reports patient reports she is drinking a lot of water, no dizziness/lightheadedness. Reports patient is asymptomatic. Reports PT will see patient this afternoon, and will call pcp with BP reading if out of range. documented in this encounter [facility] 07-15-2023 Note HNO ID: [id number] Author: Lia Guerrero APRN.[employer] Service: ? Author Type: Nurse Specialist Type: [...] discharge follow-up visit. She was admitted to [facility] June 19 through June 22, 2023. [...] daughter July 09, 2023. She has had [facility] home health care providing services. Living [...] Constitutional: Negative. Respiratory: (more content not included)... [facility] 07-15-2023 Instructions Lia Guerrero APRN.[employer] - 07/15/2023 2:55 PM EST Check your blood sugar once daily in the morning for now. If your blood sugar is 200 or greater take one 500 mg metformin with breakfast. If you are feeling ill with nausea vomiting diarrhea and are not eating do not take metformin. . documented in this encounter [facility] 07-15-2023 History of Presen t illness Narrative [...] discharge follow-up visit. She was admitted to [facility] June 19 through June 22, 2023. [...] daughter July 09, 2023. She has had [facility] home health care providing services. 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 Okay orders as noted Ronel from [facility] Home Health PT calling asking for verbal orders for skilled nurse and Social Work. Patient needs assist with medications and medication and disease education and what assistance is available. Please advise documented in this encounter [facility] 07-11-2023 Miscellaneous Notes Noted, okay Ronel, PT @ [facility] calling with plan of care. PT will see patient 1 x/week for one week and 2 x/week for four weeks for strength, gait and transfer training and fall prevention. If agree, no call back needed. Aria Avalos RN documented in this encounter [facility] 07-10-2023 Miscellaneous Notes Tried to call Ella, left detailed message on secure voicemail that provider willing to follow orders and if Ella has any questions to give nursing a call back. Adwoa Barajsa RN Will follow Ella from [facility] calls and states that patient is being discharged from [facility] today with the diagnosis of acute kidney injury and hypoglycemia. Ella asking if provider willing to follow patient with orders for physical therapy and occupational therapy. Home Health planning to start care on 07/10/2023. If agreeable please give Ella a call back . Thank you, Adwoa Barajas, RN documented in this encounter [facility] 06-18-2023 Miscellaneous Notes Noted, agree Cecilia TAYLOR from [facility] calling in with plan for both [...] to return call. documented in this encounter [facility] 06-17-2023 Miscellaneous Notes Detailed message was left of approvals. Please return call with verbal ok for both requests. Thanks! Adwoa with [facility] Nursing calling with 3 items: Requesting [...] with reply to #1 and #2 at [phone]. Thank you. documented in this encounter [facility] 06-13-2023 Miscellaneous Notes Left detailed message on Rhona VM. [place] [facility] Rhona from [facility] calls and states that patient is being discharged from [facility] this weekend with the diagnosis of severe sepsis secondary to UTI. Rhona asking if provider willing to follow patient with orders for senior living, physical therapy, and occupational therapy. Rhona also asking for provider to ok start of care on 06/17/2023. If agreeable please give Rhona a call back [phone]. Thank you, Adwoa Barajas RN documented in this encounter [facility] 06-10-2023 Note HNO ID: [id number] Author: Ella Vitale Service: ? Author Type: ? Type: Progress Notes Filed: 06/10/2023 4:26 PM Note Text: POPULATION HEALTH NAVIGATION OUTREACH Action/ 1st attempt: Left message for patient including my direct number HCC GAPS E11.51 - Type 2 diabetes mellitus with diabetic peripheral angiopathy without gangrene, without long-term current use of insulin ([facility]) - [id number] Last Billed 06/18/2022 I73.9 - PAD (peripheral artery disease) ([facility]) - [id number] Last Billed 06/18/2022 E11.49 - Type 2 diabetes mellitus with neurologic complication, without long-term current use of insulin ([facility]) - [id number] Last Billed 06/18/2022 Care Gaps Annual Wellness [...] Ella Vitale June 10, 2023 4:25 PM [facility] 06-10-2023 History of Presen t illness Narrative POPULATION HEALTH NAVIGATION OUTREACH Action/ 1st attempt: Left message for patient including my direct number HCC GAPS E11.51 - Type 2 diabetes mellitus with diabetic peripheral angiopathy without gangrene, without long-term current use of insulin ([facility]) - [id number] Last Billed 06/18/2022 I73.9 - PAD (peripheral artery disease) ([facility]) - [id number] Last Billed 06/18/2022 E11.49 - Type 2 diabetes mellitus with neurologic complication, without long-term current use of insulin ([facility]) - [id number] Last Billed 06/18/2022 Care Gaps Annual Wellness [...] 2023 4:25 PM documented in this encounter [facility] 06-10-2023 Note Patient Outreach (NE TNAV) VERONICA PELLETIER ([id number]) 1935 F Date Time Provider Department 06/10/23 ELLA VITALE NETNAV During your visit today, we recorded the following information about you: Ella Vitale 06/10/2023 4:26 PM Signed POPULATION HEALTH NAVIGATION OUTREACH Action/ attempt: Left message for patient including my direct number [facility] GAPS E11.51 - Type 2 diabetes mellitus with diabetic peripheral angiopathy without gangrene, without long-term current use of insulin ([facility]) - [id number] Last Billed 06/18/2022 I73.9 - PAD (peripheral artery disease) ([facility]) - [id number] Last Billed 06/18/2022 E11.49 - Type 2 diabetes mellitus with neurologic complication, without long-term current use of insulin ([facility]) - [id number] Last Billed 06/18/2022 Care Gaps Annual Wellness [...] Encounter Status:Closed by ELLA VITALE on 06/10/23 [facility] 04-24-2023 Miscellaneous Notes Patient notified of [...] calling: self Call patient at: at home [phone] (home) [phone] (cell) Was an appointment scheduled: No Closing statement: Symptom Call: Thank you for calling [facility], your call is very important. A nurse will call in approximately 2-4 hours during business hours. If this is an emergency, please contact 911. Rossy Elder documented in this encounter [facility] 03-31-2023 Miscellaneous Notes Patient notified of providers [...] may be able to be evaluated at [facility] this evening but she is not sure. States she most likely won't have transportation until Monday 04/02. Pt asking if Dr. Sharif could help her today, without appt. Please advise patient. Thank you. documented in this encounter [facility] 02-27-2023 Miscellaneous Notes DELMIS: 12/02/2022 Last refill: [...] patient. Zarina Elder documented in this encounter [facility] 12-02-2022 Note HNO ID: [id number] Author: Reese Sharif MD Service: ? Author Type: Physician Type: Progress Notes Filed: 12/04/2022 10:43 AM Note Text: This note was created using [employer]. 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 Reese Sharif MD [facility] 12-02-2022 History of Presen t illness Narrative Images from the original note were not included. This note was created using [employer]. 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 Kramer. Adwao Garcia Patient notified of results and provider's instructions. Patient verbalizes understanding. Please contact pt to arrange hematology consult. Linnea Morales LPN Touched base with hem/onc and recommended work up for multiple myeloma given persistent elevated calcium level. Referral/consult filed. Please call patient to let her know recommendation and assist with making appointment . documented in this encounter [facility] 06-18-2022 Instructions Lia Guerrero APRN.PAULIE - 06/18/2022 9:05 AM EDT Schedule appointment with Dr See documented in this encounter [facility] 06-18-2022 History of Presen t illness Narrative [...] 7.5 04/09/2021 7.5 ) Dr. See in [place] eye doctor, overdue for follow up. 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 Osteopenia Diagnosed on [facility] BMD in 2002; WNL since then [...] Abs Lymph 1.00 - 4.00 k/uL 2.05 Cross% % 8.0 Abs Cross <0.87 k/uL 0.76 Eosin% % 1.2 Abs [...] Review (MPA) Reviewed by Jessenia Miller MD [place] [facility], Serum 3.3 - 19.4 mg/L 54.9 [...] eye doctor Would like to go to pedal [facility] for routine follow up - GLIMEPIRIDE 2 [...] prior to visit - MD Lia Sandhu APRN.[employer] Medical Decision Making: Problems: Moderate: 2+ stable chronic illnesses Data: Unique test(s) ordered: 3+ Risk: Moderate: Drug management Medical Decision Making Level: 4 - Moderate documented in this encounter [facility] 02-19-2022 Miscellaneous Notes Last OV: 12/17/2021 Next [...] Zari Wilks Pss documented in this encounter [facility] 12-17-2021 History of Presen t illness Narrative This note was created using [employer]. 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 - Continue current medications - URINALYSIS, WITH MICROSCOPIC - HGB A1C - COMP METABOLIC PANEL - CBC - PROTEIN CREATININE RATIO 2. Type 2 diabetes mellitus with diabetic peripheral angiopathy without gangrene, without long-term current use of insulin ([facility]) - ICD9: 250.70, 443.81, ICD10: E11.51 Continue present management. 3. PAD (peripheral artery disease) ([facility]) - ICD9: 443.9, ICD10: I73.9 Continue present [...] Reese Sharif MD documented in this encounter [facility] 11-30-2021 Miscellaneous Notes Patient has been identified by name and date of : Yes Pending Prescriptions Disp Refills GLIMEPIRIDE 2 MG TABLET 90 tablet 3 Sig: Take 1 tablet by mouth daily with breakfast. As directed ABBY: No RX INSTRUCTIONS: Patient aware RX will be sent to pharmacy. No need to notify patient. Zarina Caro Pss documented in this encounter [facility] documented as of this encounter (statuses as of 02/19/2022) [facility] History of Past illness Narrative* Problem Noted [...] of this encounter (statuses as of 02/20/2022) [facility] History of Past illness Narrative* Problem Noted [...] of this encounter (statuses as of 06/18/2022) [facility] History of Past illness Narrative* Problem Noted [...] of this encounter (statuses as of 06/18/2022) [facility] of Past illness Narrative* Problem Noted [...] of this encounter (statuses as of 12/05/2022) [facility] History of Past illness Narrative* Problem Noted [...] of this encounter (statuses as of 02/28/2023) [facility] History of Past illness Narrative* Problem Noted [...] of this encounter (statuses as of 03/31/2023) [facility] of Past illness Narrative* Problem Noted [...] of this encounter (statuses as of 04/24/2023) [facility] History of Past illness Narrative* Problem Noted [...] of this encounter (statuses as of 05/24/2023) [facility] History of Past illness Narrative* Problem Noted [...] of this encounter (statuses as of 06/11/2023) [facility] History of Past illness Narrative* Problem Noted [...] of this encounter (statuses as of 06/13/2023) [facility] History of Past illness Narrative* Problem Noted [...] of this encounter (statuses as of 06/18/2023) [facility] History of Past illness Narrative* Problem Noted [...] of this encounter (statuses as of 06/19/2023) [facility] History of Past illness Narrative* Problem Noted [...] of this encounter (statuses as of 07/10/2023) [facility] History of Past illness Narrative* Problem Noted [...] of this encounter (statuses as of 07/11/2023) [facility] History of Past illness Narrative* Problem Noted [...] of this encounter (statuses as of 07/16/2023) [facility] History of Past illness Narrative* Problem Noted [...] of this encounter (statuses as of 07/19/2023) [facility] History of Past illness Narrative* Problem Noted [...] of this encounter (statuses as of 07/29/2023) [facility]08-09-2007 History of Past illness Narrative* Problem Noted Date Resolved Date 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 Overview: Uric acid 5.8 in 7-08, 6-09 Unspecified essential hypertension 04/16/2005 11/22/2005 Other abnormal blood chemistry 04/16/2005 0 11/22/2005 documented as of this encounter (statuses as of 11/30/2021) [facility] Diagnosis Controlled type 2 diabetes mellitus without complication, without long-term current use of insulin ([facility]) [facility] Diagnosis Type 2 diabetes mellitus with [...] B12 deficiency anemia [facility] Diagnosis Hypertension goal BP (blood pressure) < 150/90 Unspecified essential hypertension Iron deficiency anemia, unspecified iron deficiency anemia type [facility] Diagnosis Type 2 diabetes mellitus with [...] anemia Albuminuria Proteinuria [facility] Diagnosis Hypercalcemia- Primary Abnormal SPEP Other nonspecific findings on examination of blood documented in this encounter [facility] note* Diagnosis Non-healing skin lesion of nose- Primary Other diseases of nasal cavity and sinuses Controlled type 2 diabetes mellitus without complication, without long-term current use of insulin ([facility]) [facility] Diagnosis Hypertension goal BP (blood pressure) < 150/90 Unspecified essential hypertension [facility] Diagnosis Dysuria [facility] Diagnosis Dysuria [facility] Diagnosis Hypoglycemia- Primary Hypoglycemia, unspecified MERCEDES (acute kidney injury) (HCC) Acute kidney failure, unspecified Diarrhea, unspecified type Debility Debility, unspecified Type 2 diabetes mellitus with diabetic peripheral angiopathy without gangrene, without long-term current use of insulin (HCC) Hypertension goal BP (blood pressure) < 150/90 Unspecified essential hypertension documented in this encounter [facility] Advance Directives Documents on File Type Date Recorded 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 Advance Directive(s) 04/05/2020 7:19 AM Advance Directive(s) 03/27/2020 5:47 PM Advance Directive(s) 04/22/2016 1:16 PM Advance Directive(s) 04/01/2016 9:15 AM Reason for Referral Specialty Diagnoses / Procedures Referred By Contac t Referred To Contact Diagnoses Hypercalcemia Abnormal SPEP Procedures CONSULT TO HEMATOLOGY/ONCOLOGY OFFICE/OUTPATIENT NEW HIGH MDM 60-74 MINUTES Reese Sharif MD [address] [place] [address] Referral ID Status Reason Start Date Expiration Date Visits Requested Visits Authorized [id number] Authorized PCP Requested Referral 2 06/18/2023 1 1 Specialty Diagnoses / Procedures Referred By Contac t Referred To Contact Dermatology Diagnoses Non-healing skin lesion of nose Procedures CONSULT TO DERMATOLOGY Reese Sharif MD [address] [place] [address] [employer] [address] [place] [address] Referral ID Status Reason Start Date Expiration Date Visits Requested Visits Authorized [id number] Ref Not Required PCP Requested Referral 12/02/2022 [...] or prosecute any alcohol or drug abuse patient.[facility] the event this information is protected by the Federal Confidentiality of Alcohol and Drug Abuse Patient Records regulations: The Federal rules restrict any use of the information to criminally investigate or prosecute any alcohol or drug abuse patient.[facility] the event this information is protected by the Federal Confidentiality of Alcohol and Drug Abuse Patient Records regulations: The Federal rules restrict any use of the information to criminally investigate or prosecute any alcohol or drug abuse patient.[facility] the event this information is protected by the Federal Confidentiality of Alcohol and Drug Abuse Patient Records regulations: The Federal rules restrict any use of the information to criminally investigate or prosecute any alcohol or drug abuse patient.[facility] the event this information is protected by the Federal Confidentiality of Alcohol and Drug Abuse Patient Records regulations: The Federal rules restrict any use of the information to criminally investigate or prosecute any alcohol or drug abuse patient.[facility] Center[facility] the event this information is protected by the Federal Confidentiality of Alcohol and Drug Abuse Patient Records regulations: The Federal rules restrict any use of the information to criminally investigate or prosecute any alcohol or drug abuse patient.[facility] Center[facility] the event this information is protected by the Federal Confidentiality of Alcohol and Drug Abuse Patient Records regulations: The Federal rules restrict any use of the information to criminally investigate or prosecute any alcohol or drug abuse patient.[facility] Center[facility] the event this information is protected by the Federal Confidentiality of Alcohol and Drug Abuse Patient Records regulations: The Federal rules restrict any use of the information to criminally investigate or prosecute any alcohol or drug abuse patient.[facility] Center[facility] the event this information is protected by the Federal Confidentiality of Alcohol and Drug Abuse Patient Records regulations: The Federal rules restrict any use of the information to criminally investigate or prosecute any alcohol or drug abuse patient.[facility] CenterIn the event this information is protected by the Federal Confidentiality of Alcohol and Drug Abuse Patient Records regulations: The Federal rules restrict any use of the information to criminally investigate or prosecute any alcohol or drug abuse patient.[facility] CenterIn the event this information is protected by the Federal Confidentiality of Alcohol and Drug Abuse Patient Records regulations: The Federal rules restrict any use of the information to criminally investigate or prosecute any alcohol or drug abuse patient.[facility] CenterIn the event this information is protected by the Federal Confidentiality of Alcohol and Drug Abuse Patient Records regulations: The Federal rules restrict any use of the information to criminally investigate or prosecute any alcohol or drug abuse patient.[facility] CenterIn the event this information is protected by the Federal Confidentiality of Alcohol and Drug Abuse Patient Records regulations: The Federal rules restrict any use of the information to criminally investigate or prosecute any alcohol or drug abuse patient.[facility] CenterIn the event this information is protected by the Federal Confidentiality of Alcohol and Drug Abuse Patient Records regulations: The Federal rules restrict any use of the information to criminally investigate or prosecute any alcohol or drug abuse patient.[facility] CenterIn the event this information is protected by the Federal Confidentiality of Alcohol and Drug Abuse Patient Records regulations: The Federal rules restrict any use of the information to criminally investigate or prosecute any alcohol or drug abuse patient.[facility] CenterIn the event this information is protected by the Federal Confidentiality of Alcohol and Drug Abuse Patient Records regulations: The Federal rules restrict any use of the information to criminally investigate or prosecute any alcohol or drug abuse patient.[facility] CenterIn the event this information is protected by the Federal Confidentiality of Alcohol and Drug Abuse Patient Records regulations: The Federal rules restrict any use of the information to criminally investigate or prosecute any alcohol or drug abuse patient.[facility] CenterIn the event this information is protected by the Federal Confidentiality of Alcohol and Drug Abuse Patient Records regulations: The Federal rules restrict any use of the information to criminally investigate or prosecute any alcohol or drug abuse patient.[facility] CenterIn the event this information is protected by the Federal Confidentiality of Alcohol and Drug Abuse Patient Records regulations: The Federal rules restrict any use of the information to criminally investigate or prosecute any alcohol or drug abuse patient.[facility] CenterIn the event this information is protected by the Federal Confidentiality of Alcohol and Drug Abuse Patient Records regulations: The Federal rules restrict any use of the information to criminally investigate or prosecute any alcohol or drug abuse patient.[facility] Reason for Visit (unrecogniz ed section and [...] Reason Comments Home Health Orders Reason Comments [facility] Nursing Call Reason Comments Home Health update Reason Comments Home Health orders Reason Comments FYI-PT plan of care Reason Comments Orders Reason Comments Hospital F/U Reason Comments Patient Update Reason Comments Refill Request Care Teams (unrecognized sec tion and content) Marble Ceiling Installer Relationship Specialty Start Date End Date Reese Sharif MD [address] [facility] [place] [address] PCP - General 10/02/09 Marble Ceiling Installer Relationship Specialty Start Date End Date Reese Sharif MD [address] [place] [address] PCP - General 10/02/09 Marble Ceiling Installer Relationship Specialty Start Date End Date Reese Sharif MD [address] [place] [address] PCP - General 10/02/09 Marble Ceiling Installer Relationship Specialty Start Date End Date Reese Sharif MD [address] [place] [address] PCP - General 10/02/09 Marble Ceiling Installer Relationship Specialty Start Date End Date Reese Sharif MD [address] [place] [address] PCP - General 10/02/09 Marble Ceiling Installer Relationship Specialty Start Date End Date Reese Sharif MD [address] [place] [address] PCP - General 10/02/09 Marble Ceiling Installer Relationship Specialty Start Date End Date Reese Sharif MD [address] [place] [address] PCP - General 10/02/09 Marble Ceiling Installer Relationship Specialty Start Date End Date Reese Sharif MD [address] [place] [address] PCP - General 10/02/09 Marble Ceiling Installer Relationship Specialty Start Date End Date Reese Sharif MD [address] [place], [place] [address] PCP - General 10/02/09 Marble Ceiling Installer Relationship Specialty Start Date End Date Reese Sharif MD [address] [place], [place] [id number] PCP General 10/02/09 Marble Ceiling Installer Relationship Specialty Start Date End Date Reese Sharif MD [address] [place], [place] [id number] PCP [facility] 10/02/09 Marble Ceiling Installer Relationship Specialty Start Date End Date Reese Sharif MD [address] [place], [place] [id number] [facility] 10/02/09 INFORMATION SOURCE (unrecogn ized section [...] BE BASED ON THE PRIMARY CLINICAL RECORDS. [facility] [employer] [facility]. provides no warranty or guarantee of the accuracy or completeness of information in this document.
[2023-10-06] MEDS: KCL 20MEQ in 0.9% NS 20 MEQ/1,000 ML IV.SOLN. 100 MEQ IV ×2 (05:00→12:46)
[2023-10-06] MEDS: 0.9% Normal Saline (250mL Bag) 250 ML 15 ML IV (05:05)
[2023-10-06] MEDS: 0.9% Saline Lock 10 ML Syringe IV (05:25)
[2023-10-06] MEDS: Piperacil/Tazobactam 3.375 GM in 0.9% Normal Saline (50mL MB+) 50 ML IV ×3 (05:25→21:06)
--- NOTE | 2023-10-06 05:55 | MRI_ITS ---
STUDY: MRI ABDOMEN WITHOUT CONTRAST REASON FOR EXAM: Female, 88 years old. Dilated CBD -- GB sludge and pericholecystic fluid. abdomen pain vomiting dizzy TECHNIQUE: Standardized fat and water weighted pulse sequences were obtained in all 3 orthogonal planes. 3-D reconstructions are included. COMPARISON: CT of abdomen and pelvis dated October 05, 2023 FINDINGS: Small bilateral pleural effusions are present. Normal liver. Gallbladder: A small amount of gallbladder sludge is present. A small amount of pericholecystic fluid is also present. The gallbladder wall does not appear thickened on the current study. The CBD is dilated up to 1.34 cm in diameter with a small amount of clustered rounded low signal structures at its terminal in either representing stones or proteinaceous debris or sludge see image #31/60 series 10. Normal spleen. Normal pancreas. Normal bilateral adrenal glands. Redemonstration of mild right hydronephrosis. Redemonstration of a moderate size simple cyst in the medial aspect of the left kidney measuring 4.34 cm in diameter. Normal visualized stomach. Normal small intestine. Normal colon. Aorta: No aneurysmal dilatation. Normal inferior vena cava. Normal retroperitoneum. Normal abdominal wall. There are diffuse degenerative changes of the visualized lumbar spine. IMPRESSION: Cholecystitis, however it is not clear if it is acute or chronic or a combination of acute on chronic disease. Correlate with nuclear medicine HIDA scan to determine if the cystic duct is patent 1. Gallbladder: A small amount of gallbladder sludge is present. A small amount of pericholecystic fluid is also present. The gallbladder wall does not appear thickened on the current study. The CBD is dilated up to 1.34 cm in diameter with a small amount of clustered rounded low signal structures at its terminal in either representing stones or proteinaceous debris or sludge see image #31/60 series 10. 2. No change in mild right hydronephrosis STUDY: MR CHOLANGIOPANCREATOGRAPHY (MRCP) REASON FOR EXAM: Female, 88 years old. Dilated CBD -- GB sludge and pericholecystic fluid. abdomen pain vomiting dizzy TECHNIQUE: Standard MRCP technique was utilized. 3-D reconstructions are included. COMPARISON: None. FINDINGS: Gall Bladder: Small amount of gallbladder sludge and pericholecystic fluid. No significant wall thickening is seen. Cystic duct: Normal with no demonstrated fixed filling defect. Intrahepatic ducts: Normal visualized intrahepatic ducts with no demonstrated fixed filling defect, dilation or stricture. Common hepatic duct: Normal with no demonstrated fixed filling defect, dilation or stricture. Common bile duct: The CBD is dilated up to 1.34 cm in diameter with a small amount of clustered rounded low signal structures at its terminal in either representing stones or proteinaceous debris or sludge see image #31/60 series 10. MRI/MRCP Abdomen without Contrast IMPRESSION: Cholecystitis, however it is not clear if it is acute or chronic or a combination of acute on chronic disease. Correlate with nuclear medicine HIDA scan to determine if the cystic duct is patent 1. Gallbladder: A small amount of gallbladder sludge is present. A small amount of pericholecystic fluid is also present. The gallbladder wall does not appear thickened on the current study. The CBD is dilated up to 1.34 cm in diameter with a small amount of clustered rounded low signal structures at its terminal in either representing stones or proteinaceous debris or sludge see image #31/60 series 10. Electronically Signed: Juan Ramon Patel MD at 16:12 EST ,
[2023-10-06 06:08] LABS: Absolute Lymphocyte Count 0.35 X10^3/uL (0.83-4.51); Absolute Neutrophil Count 10.4 X10^3/uL (2.0-7.7); Basophil# 0.03 X10^3/uL; Basophil% 0.3 % (0-1); Hematocrit 26.1 % (37-47); Hemoglobin 8.1 g/dL (12.0-15.0); Lymphocyte # 0.35 X10^3/ul (0.83-4.51); Lymphocyte % 3.1 % (19-41); Mean Corpuscular Hgb 27.4 pg (27.0-32.0); Mean Corpuscular Volume 88.2 fL (81-99); Mean Platelet Vol. 10.3 fl (6.2-12.0); Monocyte# 0.34 X10^3/uL; NRBC Flagged by Analyzer 0 % (0-5); Neutrophil # 10.41 X10^3/uL (2.7-7.7); Neutrophil % 93.1 % (47-70); POSITIVE DIFFERENTIAL YES; Platelet Count 214 K/mm3 (150-450); RBC Distribution Width CV 14.1 % (11.6-14.6); RBC Distribution Width SD 45.1 fl (35.1-43.9); Red Blood Count 2.96 M/mm3 (4.2-5.4); White Blood Count 11.2 K/mm3 (4.4-11.0)
[2023-10-06 06:37] LABS: ALB/GLOB Ratio 0.6 RATIO (0.9-2.4); AST(SGOT) 174 U/L (15-37); Alanine Aminotransfer ALT/SGPT 204 U/L (13-56); Albumin, Serum 2.2 g/dL (3.2-5.0); Alkaline Phosphatase 188 U/L (45-117); Anion Gap 7 (5-15); BUN 17 mg/dL (7-18); BUN/Creat Ratio 16.3 RATIO (10-20); Calcium,Total 7.2 mg/dL (8.5-10.1); Chloride 115 mmol/L (98-107); Creatinine, Serum 1.04 mg/dL (0.55-1.02); EST Glomerular Filtration Rate 53 mL/min (>60); Est Glom Filt Rate - Afr Amer 64 mL/min (>60); Estimated Creatinine Clearance 27.04 ml/min; Globulin 3.9 g/dL (2.2-4.2); Glucose 247 mg/dL (74-106); Magnesium 1.1 mg/dL (1.6-2.6); Phosphorus 2.6 mg/dL (2.5-4.9); Potassium 3.4 mmol/L (3.5-5.1); Protein, Total 6.1 g/dL (6.4-8.2); Sodium Level 142 mmol/L (136-145)
--- NOTE | 2023-10-06 08:10 | PN.HOSP_ITS ---
Reason for Visit Reason for Visit: Diagnoses Acute cholecystitis (10/05/23) Other cholangitis (10/05/23) Subjective Subjective Feels well. Objective Data Objective Data Vital Signs: Vital Signs Temp Pulse Resp BP Pulse Ox O2 Del Method 37.7 C H 100 23 H 127/89 H 96 Room Air 10/06/23 02:00 10/06/23 02:00 10/06/23 02:00 10/06/23 02:00 10/06/23 02:00 10/06/23 02:00 Oxygen Delivery Method Room Air Weight: 44.95 kg Body Mass Index (BMI) 19.4 Intake & Output: Intake and Output for Last 24 Hours 10/04/23 10/05/23 10/06/23 23:59 23:59 23:59 Intake Total 2055 / 2055 Output Total 800 / 800 Balance 1255 / 1255 Lab / Micro Data 10/06/23 05:20 10/06/23 05:20 Labs: Laboratory Results - last 24 hr 10/05/23 19:33: WBC 8.0, RBC 3.94 L, Hgb 10.5 L, Hct 33.9 L, MCV 86.0, MCH 26.6 L, MCHC 31.0 L, RDW Std Deviation 43.7, RDW Coeff of Alanna 13.8, Plt Count 282, MPV 9.8, Immature Gran % (Auto) 0.400, Neut % (Auto) 90.9 H, Lymph % (Auto) 5.4 L, Terry % (Auto) 2.5, Eos % (Auto) 0.5, Baso % (Auto) 0.3, Absolute Neuts (auto) 7.3, Absolute Lymphs (auto) 0.43 L, Nucleated RBC % 0, PT 13.7, INR 1.0, APTT 30.6, Sodium 136, Potassium 3.6, Chloride 104, Carbon Dioxide 23.0, Anion Gap 9, BUN 21 H, Creatinine 1.09 H, Estim Creat Clear Calc 26.12, Est GFR (MDRD) Af Amer 61, Est GFR (MDRD) Non-Af 50 L, BUN/Creatinine Ratio 19.3, Glucose 299 H, Lactic Acid 2.9 H*, Calcium 10.0, Total Bilirubin 1.40 H, AST 528 H, ALT 321 H, Alkaline Phosphatase 293 H, Total Protein 8.7 H, Albumin 3.3, Globulin 5.4 H, Albumin/Globulin Ratio 0.6 L 10/05/23 20:15: Urine Color Yellow, Urine Clarity Clear, Urine pH 6.0, Ur Specific L[place]ton 1.010, Urine Protein 500 H, Urine Glucose (UA) 100 H, Urine Ketones Negative, Urine Occult Blood 25 H, Urine Nitrite Negative, Urine Bilirubin Negative, Urine Urobilinogen Normal, Ur Leukocyte Esterase 500 H, Urine RBC 0 SEEN, Urine WBC 10-25 SEEN, Ur Squamous Epith Cells 0 SEEN, Urine Bacteria 0 SEEN, Urine Mucus 0 SEEN 10/06/23 05:20: WBC 11.2 H, RBC 2.96 L, Hgb 8.1 L, Hct 26.1 L, MCV 88.2, MCH 27.4, MCHC 31.0 L, RDW Std Deviation 45.1 H, RDW Coeff of Alanna 14.1, Plt Count 214, MPV 10.3, Immature Gran % (Auto) 0.500, Neut % (Auto) 93.1 H, Lymph % (Auto) 3.1 L, Terry % (Auto) 3.0, Eos % (Auto) 0.0, Baso % (Auto) 0.3, Absolute Neuts (auto) 10.4 H, Absolute Lymphs (auto) 0.35 L, Nucleated RBC % 0, Sodium 142, Potassium 3.4 L, Chloride 115 H, Carbon Dioxide 20.0 L, Anion Gap 7, BUN 17, Creatinine 1.04 H, Estim Creat Clear Calc 27.04, Est GFR (MDRD) Af Amer 64, Est GFR (MDRD) Non-Af 53 L, BUN/Creatinine Ratio 16.3, Glucose 247 H, Calcium 7.2 L, Phosphorus 2.6, Magnesium 1.1 L, Total Bilirubin 1.20 H, AST 174 H, ALT 204 H, Alkaline Phosphatase 188 H, Total Protein 6.1 L, Albumin 2.2 L, Globulin 3.9, Albumin/Globulin Ratio 0.6 L Micro: Microbiology 10/05/23 19:50 Mucosa - Nose SARS-CoV-2, Influenza & RSV (PCR) - Final Radiography Diagnostic Testing: Radiology Impression Abdomen/Pelvis CT 10/05/23 19:24 IMPRESSION: Nonspecific gallbladder distention with wall thickening/edema. Consider further evaluation by gallbladder ultrasound. Abnormal biliary distention with 14 mm common bile duct, no calcified bile duct calculus. 9 mm hyperdense right cortical cystic lesion. Although almost definitely benign six-month follow-up recommended for stability. Electronically Signed: Dick Aleman MD at 20:40 EST , Chest X-Ray 10/05/23 19:59 IMPRESSION: No radiographic evidence of acute cardiopulmonary disease. Electronically Signed: Dick Aleman MD at 20:28 EST , Gallbladder Ultrasound 10/05/23 21:03 IMPRESSION: Gallbladder sludge and mild pericholecystic fluid. No sonographic findings of definite acute cholecystitis. Dilated common bile duct without identifiable obstructing calculus. Electronically Signed: Dick Aleman MD at 22:58 EST , Physical Exam Const alert and no apparent distress HEENT head/scalp atraumatic Resp normal respiratory effort, no retractions, no use of accessory muscles and clear to auscultation bilaterally Cardio regular rate, regular rhythm, S1 normal heart sound and S2 normal heart sound GI GI Narrative: Right upper quadrant abdominal pain. No rebound. Neuro Sensorium / Orientation: awake and alert Assessment & Plan Assessment/Plan (1) Acute cholecystitis with acute cholangitis: PLAN: Plan Suspected acute choledocholithiasis * Ultrasound shows a gallbladder sludge with mild pericholecystic fluid. No sonographic findings of definitive acute cholecystitis. Dilated common bile duct without identifiable obstructing calculus. * CAT scan showed nonspecific gallbladder distention with wall thickening/edema. Abnormal biliary distention with 14 mm common bile duct. 9 mm hypodense right cortical cystic lesion. * Antibiotics with pip-tazo * Gastroenterology and general surgery on consult. * qSOFA 1, sepsis not present on admission. * Discussed with Dr. Gonzalez, general surgery. Patient not a candidate for laparoscopic cholecystectomy at this time as gallbladder currently appears unremarkable. hypertensive urgency: * Improved * Initially blood pressure was elevated 200/58 * continue metoprolol Chronic conditions: * Diabetes mellitus type 2: Clear liquid. Accu-Chek ACH cover with Humalog sliding scale. Hold oral hypoglycemic agent. * Severe protein calorie malnutrition, chronic: Photo Graphics Librarian consult. Ensure supplementation. * CKD stage IV: Last hospitalization for diarrhea, urine retention and MERCEDES: Patient was admitted for 3 days in May 2023. UTI was ruled out. MERCEDES improved. Currently patient denies dysuria or burning micturition but she has history of UTI in the past. BUNs/creatinine 21/1.09, estimated creatinine clearance 26 mL per minute. Usually her creatinine stays 1.0-1.1 at her baseline. MERCEDES ruled out. DVT prophylaxis, high risk: Lovenox 30 mg subcu daily. Living will/advanced directive/end of life care: Full code Discussed with the patient's daughter at bedside. Charges/Coding Visit Charges Inpatient E&M: 51567 Subs Hosp L2
[2023-10-06] MEDS: Iron Polysaccharide Complex 150 MG CAPSULE PO (08:38)
[2023-10-06] MEDS: Metoprolol Tartrate 50 MG Tablet PO ×2 (08:38→21:08)
[2023-10-06] MEDS: Vibegron 75 MG TABLET PO (08:38)
[2023-10-06] MEDS: Sucralfate 1 GM Tablet PO ×2 (08:38→16:29)
[2023-10-06] MEDS: Ascorbic Acid 500 MG Tablet PO (08:39)
[2023-10-06] MEDS: Pantoprazole Sodium 40 MG Tablet PO ×2 (08:39→21:07)
[2023-10-06] MEDS: Enoxaparin 30 MG/0.3 ML Syringe SC (08:39)
[2023-10-06] MEDS: Acetaminophen 325 MG Tablet 650 MG PO (09:29)
[2023-10-06] MEDS: Ondansetron 4 MG/2 ML Vial IV (09:29)
--- NOTE | 2023-10-06 10:55 | CASEMGMT ---
JESUS BHATTI Assessment: Face to Face with pt for initial transition planning/care coordination assessment. RN DAVY introduced self and role at [facility], pt voices understanding and consents to assessment. Pt is A&O x4 and answers all questions appropriately at this time. Pt sitting up in bed in no distress with dtr at bedside. Care providers, pharmacy, and demographics verified/updated. Admitting Dx: possible passed stone, dilated CBD PCP:[facility] Specialists:thong Hwang Pharmacy: [facility] Insurance: [employer] Prescription Benefit: yes LNOK: Aniyah Prabhu, dtr Living Arrangements: Pt lives with dtr in a ground level apt with 1 step to enter. Pt bathes self but dtr present for safety. Pt gets own breakfast and dtr makes other meals, pt and dtr share in laundry tasks, pt dtr gets groceries. Pt denies concerns at home. Transportation: Pt dtr transports pt to medical appts. DME:BAKARI cid- uses occas, shower chair HHC/SNF: [facility] HHC in the past, [facility] Pt states no concerns with going home at time of dc. Pt does not feel she needs therapy upon dc; therapy to eval yet. Pt states no further concerns/needs. CM to follow. Advised pt to ask CM if any further question/concerns/needs arise, voices understanding. Pt Goal: Home Plan: Home, pending therapy evals.
--- NOTE | 2023-10-06 14:42 | CHAPLAIN ---
Type of Pastoral Visit _x__ Initial Visit ___ Follow-up Visit ___ On-call Visit ___ General Patient Visit ___ Spiritual Assessment ___ Family Conference ___ Bereavement ___ Rapid Response ___ Code Blue ___ Other (describe below) Pastoral Care Referral From _x__ Patient _x__ Family ___ Nurse ___ Physician ___ Php Consultant ___ Auger Press Operator ___ Other (describe below) Sacrament/Intervention _x__ Active listening ___ Anointing ___ Sikh ___ Bereavement ___ Communion ___ Sola exploration ___ ___ Life review _x__ Prayer ___ Reconciliation ___ Sacrament of Sick _x__ Supportive presence ___ Wedding ___ Other (describe below) Pastoral Comments patient and her daughter are together in the room; both have been seen before as this patient has been admitted here before; pt is kind and expresses thanks for the spiritual care; daughter is more anxious and states her concerns about making sure I do the right things for her ; both welcome the visit, time to speak of their experience, and the prayer support
[2023-10-06] MEDS: Tamsulosin HCl 0.4 MG Capsule 0.400000000000000022 MG PO (16:29)
--- NOTE | 2023-10-06 16:31 | EX.PCM.CON.S ---
Assessment & Plan Assessment/Plan (1) Common bile duct dilation: PLAN: This is an 88-year-old female who presented acutely with nonspecific symptoms of fevers and chills that were suggestive of a previous experience with urinary tract infection several months ago. In fact, patient was diagnosed with a urinary tract infection along with CT and ultrasound evidence of common bile duct dilatation. Notably, neither study found definitive evidence of choledocholithiasis. Further, ultrasound found patient's gallbladder wall to be of normal thickness and identified only trace pericholecystic fluid which remains nonspecific. On my exam, patient is not experiencing any abdominal tenderness with palpation of the right upper quadrant and also has a negative Ramos sign; thus I am unable to call this cholecystitis. I have noted that her LFTs are already downtrending with her updated CMP today. 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 If we jeanmarie that this was due to a now?passed gallstone I do not see any clear benefit for proceeding with cholecystectomy given that patient does not have evidence of gallstones remaining in the gallbladder. At present recommend following up now?completed MRCP and gastroenterology evaluation but at this time have no plans for surgical intervention. Jeb Gonzalez MD General Surgery Endocrine Surgery Pager: [facility] [address] [place] [address], [address] [place] [address] Office: [phone] HPI Consult Data Date of Consult: 10/06/23 HPI Narrative Reason for Consultation: Gallbladder and common bile duct abnormalities HPI Narrative: VERONICA HUNT, is a 88 F who presented to [facility] yesterday, 10/05/2023 after her daughter found her to be febrile and complaining of symptoms that were suggestive of recurrent UTI. Patient states that several months ago she had similar symptoms and was given this diagnosis. She states in the time since that evaluation she has done well and has been eating everything in sight . Along with this she denies any experience of abdominal discomfort. She does state that she has some mild tenderness when she was examined yesterday. Her daughter remarks that Mrs. Matt had a normal bowel movement prior to being found febrile and complaining of chills. Patient's ER workup included CT imaging of the abdomen pelvis that showed some gallbladder wall thickening and common bile duct dilatation to 14 mm. Notably no gallstones were seen within the gallbladder nor was there any definitive evidence of choledocholithiasis. Patient did have significant derangement of her LFTs on comprehensive metabolic panel. It was at this time that I was contacted for further workup recommendations and recommended a right upper quadrant ultrasound be performed. This ultrasound demonstrated that the gallbladder wall in fact was normal in dimensions and no gallstones were seen with this study either. Radiology did confirm the common bile duct dilatation and evidence of trace pericholecystic fluid but included there is no definitive evidence of cholecystitis. Patient is relatively healthy and lives at home with her daughter. She confirms diagnoses of diabetes mellitus, glaucoma, hypertension, hyperlipidemia, and retention along with the UTIs already mentioned. 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 Richards several years ago. [facility] Medical History Diabetes Glaucoma Hyperlipidemia Hypertension Urinary retention Urinary tract infection Home Medications latanoprost 0.005 % eye drops 1 drp QHS Check with primary doctor 04/04/17 [History Last Taken Unknown] simvastatin 10 mg tablet (Zocor) 10 mg PO QHS Check with primary doctor 04/04/17 [History Last Taken 06/21/23] amlodipine 2.5 mg tablet 10 mg PO 2000 Blood Pressure 06/08/23 [History Last Taken Unknown] pantoprazole 40 mg tablet,delayed release 40 mg PO BID Acid Reflux #60 tabs 06/20/23 [Rx Last Taken 06/22/23] metoprolol tartrate 50 mg tablet 50 mg PO BID Blood Pressure #0 tabs 06/22/23 [Rx Last Taken 06/22/23] ascorbic acid (vitamin C) 500 mg tablet 500 mg PO 1000 30 days #30 tabs 07/04/23 [Rx Last Taken Unknown] polysaccharide iron complex 150 mg iron capsule (Ferrex) 150 mg PO DAILY 30 days #30 caps 07/04/23 [Rx Last Taken Unknown] sucralfate 1 gram tablet (Carafate) 1 g PO TID Stomach 30 days #90 tabs 07/04/23 [Rx Last Taken Unknown] tamsulosin 0.4 mg capsule 0.4 mg PO DAILY@1730 30 days #30 caps 07/04/23 [Rx Last Taken Unknown] Lactobacillus acidophilus (Acidophilus capsule) 1 cap PO DAILY GI Tract 10/06/23 [History Last Taken 10/05/23] metformin 500 mg tablet 500 mg PO BID diabetes 10/06/23 [History Last Taken 10/05/23] vibegron 75 mg tablet (Gemtesa) 75 mg PO DAILY 10/06/23 [History Last Taken Unknown] Allergy/AdvReac Type Severity Reaction Status Date / Time betaxolol [From Betoptic] Allergy Itching Verified 06/08/23 14:18 brimonidine [From Alphagan P] Allergy Itching Verified 06/08/23 14:18 cephalexin [From Keflex] Allergy Rash Verified 06/08/23 14:18 nabumetone [From Relafen] Allergy Rash Verified 06/08/23 14:18 Family History Other Diabetes Heart disease Surgical History Status post laparoscopy with lysis of adhesions Social History household members: family housing: house Smoking Status: Former smoker alcohol intake: never substance use type: does not use ROS Constitutional Constitutional: Reports chills and fever(s); Denies anorexia Gastrointestinal Gastrointestinal: Denies abdominal pain or diarrhea Physical Exam Const alert, oriented x3 and no apparent distress Constitutional Narrative: No evidence of jaundice Resp Resp Narrative: No acute distress GI GI Narrative: Well-healed midline laparotomy incision. No evidence of hernia. Nondistended, soft, nontender to palpation. Negative Ramos sign. Medical Records Data Medical Nutrition Assessment Dietitian: Malnutrition Criteria Met Start: 10/06/23 11:45 Freq: Status: Active Protocol: Document 10/06/23 11:45 JOAN (Rec: 10/06/23 11:45 JOAN [id number]) Nutrition Malnutrition Evidence of Malnutrition Exists Yes Evidenced By Suboptimal Energy Intake ( Severe),Weight Loss (Severe), Physical Changes (Moderate) Clinical Problem Altered Nutrient-Related Laboratory Values Etiology related to diabetes Signs/Symptoms as evidenced by gluc 247 Status Active Problem Chronic Disease or Condition Related Malnutrition Etiology related to inadequate energy intake Signs/Symptoms as evidenced by pt who admits eating small amounts and has had 6.2% unintended wt loss in < 4 months. Noted fat /muscle wt loss throughout body. Status Active Problem Recommendation Dietitian Recommendations/Changes As medically able, rec STANISLAW to liberal Regular Consistent CHO diet Talk to pt at time of follow up re: oral nutrition supplements - does not want at this time Lab / Micro Data 10/06/23 05:20 10/06/23 05:20 Labs: Laboratory Results - last 24 hr 10/05/23 19:33: WBC 8.0, RBC 3.94 L, Hgb 10.5 L, Hct 33.9 L, MCV 86.0, MCH 26.6 L, MCHC 31.0 L, RDW Std Deviation 43.7, RDW Coeff of Alanna 13.8, Plt Count 282, MPV 9.8, Immature Gran % (Auto) 0.400, Neut % (Auto) 90.9 H, Lymph % (Auto) 5.4 L, [place] % (Auto) 2.5, Eos % (Auto) 0.5, Baso % (Auto) 0.3, Absolute Neuts (auto) 7.3, Absolute Lymphs (auto) 0.43 L, Nucleated RBC % 0, PT 13.7, INR 1.0, APTT 30.6, Sodium 136, Potassium 3.6, Chloride 104, Carbon Dioxide 23.0, Anion Gap 9, BUN 21 H, Creatinine 1.09 H, Estim Creat Clear Calc 26.12, Est GFR (MDRD) Af Amer 61, Est GFR (MDRD) Non-Af 50 L, BUN/Creatinine Ratio 19.3, Glucose 299 H, Lactic Acid 2.9 H*, Calcium 10.0, Total Bilirubin 1.40 H, AST 528 H, ALT 321 H, Alkaline Phosphatase 293 H, Total Protein 8.7 H, Albumin 3.3, Globulin 5.4 H, Albumin/Globulin Ratio 0.6 L 10/05/23 20:15: Urine Color Yellow, Urine Clarity Clear, Urine pH 6.0, Ur Specific [place] 1.010, Urine Protein 500 H, Urine Glucose (UA) 100 H, Urine Ketones Negative, Urine Occult Blood 25 H, Urine Nitrite Negative, Urine Bilirubin Negative, Urine Urobilinogen Normal, Ur Leukocyte Esterase 500 H, Urine RBC 0 SEEN, Urine WBC 10-25 SEEN, Ur Squamous Epith Cells 0 SEEN, Urine Bacteria 0 SEEN, Urine Mucus 0 SEEN 10/06/23 05:20: WBC 11.2 H, RBC 2.96 L, Hgb 8.1 L, Hct 26.1 L, MCV 88.2, MCH 27.4, MCHC 31.0 L, RDW Std Deviation 45.1 H, RDW Coeff of Alanna 14.1, Plt Count 214, MPV 10.3, Immature Gran % (Auto) 0.500, Neut % (Auto) 93.1 H, Lymph % (Auto) 3.1 L, [place] % (Auto) 3.0, Eos % (Auto) 0.0, Baso % (Auto) 0.3, Absolute Neuts (auto) 10.4 H, Absolute Lymphs (auto) 0.35 L, Nucleated RBC % 0, Sodium 142, Potassium 3.4 L, Chloride 115 H, Carbon Dioxide 20.0 L, Anion Gap 7, BUN 17, Creatinine 1.04 H, Estim Creat Clear Calc 27.04, Est GFR (MDRD) Af Amer 64, Est GFR (MDRD) Non-Af 53 L, BUN/Creatinine Ratio 16.3, Glucose 247 H, Calcium 7.2 L, Phosphorus 2.6, Magnesium 1.1 L, Total Bilirubin 1.20 H, AST 174 H, ALT 204 H, Alkaline Phosphatase 188 H, Total Protein 6.1 L, Albumin 2.2 L, Globulin 3.9, Albumin/Globulin Ratio 0.6 L Micro: Microbiology 10/05/23 20:15 Urine Catheter - Catheter Urine Culture - Preliminary Staphylococcus aureus 10/05/23 19:50 Mucosa - Nose SARS-CoV-2, Influenza & RSV (PCR) - Final Imaging Radiology Impression Abdomen/Pelvis CT 10/05/23 19:24 IMPRESSION: Nonspecific gallbladder distention with wall thickening/edema. Consider further evaluation by gallbladder ultrasound. Abnormal biliary distention with 14 mm common bile duct, no calcified bile duct calculus. 9 mm hyperdense right cortical cystic lesion. Although almost definitely benign six-month follow-up recommended for stability. Electronically Signed: Dick Aleman MD at 20:40 EST , Chest X-Ray 10/05/23 19:59 IMPRESSION: No radiographic evidence of acute cardiopulmonary disease. Electronically Signed: Dick Aleman MD at 20:28 EST , Gallbladder Ultrasound 10/05/23 21:03 IMPRESSION: Gallbladder sludge and mild pericholecystic fluid. No sonographic findings of definite acute cholecystitis. Dilated common bile duct without identifiable obstructing calculus. Electronically Signed: Dick Aleman MD at 22:58 EST , Charges/Coding Visit Charges Inpatient E&M: 11005 Init Hosp L2
--- NOTE | 2023-10-06 17:26 | CON.PCM.GI_ITS ---
HPI Consult Data Date of Consult: 10/06/23 HPI Narrative Reason for Consultation: Elevated liver function test and liver enzymes HPI Narrative: VERONICA HUNT, is a 88 F came to ED with vomiting, fever and nausea by EMS squad she lives with her daughter who is main caregiver. As per the daughter, she had a fever measuring 103 Fahrenheit between 5 to 6 PM along with nausea. She also threw up in the evening x 2 what she ate in the afternoon. She denies abdominal pain. Her blood pressure was elevated.Heart rate 142-minute, BP 176/65 by EMS. In ED, her blood pressure was also elevated 200/58, heart rate 126/min but later on improved heart rate 113/min, blood pressure 139/39. The patient had abdomen pelvis CT which showed nonspecific GB distention with wall thickening/edema and reported abnormal biliary distention with 14 mm. Furthermore right upper quadrant sonogram was done which reported GB sludge and mild pericholecystic fluid, no sonographic evidence of definite acute mastitis. Dilated CBD without identifiable obstructing calculus. Patient was given IV fluid and antibiotics Zosyn and further admitted. She is currently being seen by surgery and the medical service for possible cholecystitis and possible choledocholithiasis. An MRCP was ordered and the results are pending. I was consulted due to elevated liver function tests and liver enzymes possibly secondary to choledocholithiasis. At this time she does not have any abdominal pain, nausea, vomiting. She denies any chest pain or shortness of breath. [facility] Medical History Diabetes Glaucoma Hyperlipidemia Hypertension Urinary retention Urinary tract infection Home Medications latanoprost 0.005 % eye drops 1 drp QHS Check with primary doctor 04/04/17 [History Last Taken Unknown] simvastatin 10 mg tablet (Zocor) 10 mg PO QHS Check with primary doctor 04/04/17 [History Last Taken 06/21/23] amlodipine 2.5 mg tablet 10 mg PO 1999 Blood Pressure 06/08/23 [History Last Taken Unknown] pantoprazole 40 mg tablet,delayed release 40 mg PO BID Acid Reflux #60 tabs 06/20/23 [Rx Last Taken 06/22/23] metoprolol tartrate 50 mg tablet 50 mg PO BID Blood Pressure #0 tabs 06/22/23 [Rx Last Taken 06/22/23] ascorbic acid (vitamin C) 500 mg tablet 500 mg PO 1000 30 days #30 tabs 07/04/23 [Rx Last Taken Unknown] polysaccharide iron complex 150 mg iron capsule (Ferrex) 150 mg PO DAILY 30 days #30 caps 07/04/23 [Rx Last Taken Unknown] sucralfate 1 gram tablet (Carafate) 1 g PO TID Stomach 30 days #90 tabs 07/04/23 [Rx Last Taken Unknown] tamsulosin 0.4 mg capsule 0.4 mg PO DAILY@1730 30 days #30 caps 07/04/23 [Rx Last Taken Unknown] Lactobacillus acidophilus (Acidophilus capsule) 1 cap PO DAILY GI Tract 10/06/23 [History Last Taken 10/05/23] metformin 500 mg tablet 500 mg PO BID diabetes 10/06/23 [History Last Taken 10/05/23] vibegron 75 mg tablet (Gemtesa) 75 mg PO DAILY 10/06/23 [History Last Taken Unknown] Allergy/AdvReac Type Severity Reaction Status Date / Time betaxolol [From Betoptic] Allergy Itching Verified 06/08/23 14:18 brimonidine [From Alphagan P] Allergy Itching Verified 06/08/23 14:18 cephalexin [From Keflex] Allergy Rash Verified 06/08/23 14:18 nabumetone [From Relafen] Allergy Rash Verified 06/08/23 14:18 Family History Other Diabetes Heart disease Surgical History Status post laparoscopy with lysis of adhesions Social History household members: family housing: house Smoking Status: Former smoker alcohol intake: never substance use type: does not use ROS Constitutional Constitutional: Reports chills and fever(s); Denies anorexia Gastrointestinal Gastrointestinal: Denies abdominal pain or diarrhea Physical Exam Const alert and no apparent distress HEENT head/scalp atraumatic Resp normal respiratory effort, no retractions, no use of accessory muscles and clear to auscultation bilaterally Cardio regular rate, regular rhythm, S1 normal heart sound and S2 normal heart sound GI GI Narrative: Right upper quadrant abdominal pain. No rebound. Neuro Sensorium / Orientation: awake and alert Medical Records Data Medical Nutrition Assessment Dietitian: Malnutrition Criteria Met Start: 10/06/23 11:45 Freq: Status: Active Protocol: Document 10/06/23 11:45 [facility] (Rec: 10/06/23 11:45 [facility] [id number]) Nutrition Malnutrition Evidence of Malnutrition Exists Yes Evidenced By Suboptimal Energy Intake ( Severe),Weight Loss (Severe), Physical Changes (Moderate) Clinical Problem Altered Nutrient-Related Laboratory Values Etiology related to diabetes Signs/Symptoms as evidenced by gluc 247 Status Active Problem Chronic Disease or Condition Related Malnutrition Etiology related to inadequate energy intake Signs/Symptoms as evidenced by pt who admits eating small amounts and has had 6.2% unintended wt loss in < 4 months. Noted fat /muscle wt loss throughout body. Status Active Problem Recommendation Dietitian Recommendations/Changes As medically able, rec STANISLAW to liberal Regular Consistent CHO diet Talk to pt at time of follow up re: oral nutrition supplements - does not want at this time Lab / Micro Data 10/06/23 05:20 10/06/23 05:20 Labs: Laboratory Results - last 24 hr 10/05/23 19:33: WBC 8.0, RBC 3.94 L, Hgb 10.5 L, Hct 33.9 L, MCV 86.0, MCH 26.6 L, MCHC 31.0 L, RDW Std Deviation 43.7, RDW Coeff of Alanna 13.8, Plt Count 282, MPV 9.8, Immature Gran % (Auto) 0.400, Neut % (Auto) 90.9 H, Lymph % (Auto) 5.4 L, [place] % (Auto) 2.5, Eos % (Auto) 0.5, Baso % (Auto) 0.3, Absolute Neuts (auto) 7.3, Absolute Lymphs (auto) 0.43 L, Nucleated RBC % 0, PT 13.7, INR 1.0, APTT 30.6, Sodium 136, Potassium 3.6, Chloride 104, Carbon Dioxide 23.0, Anion Gap 9, BUN 21 H, Creatinine 1.09 H, Estim Creat Clear Calc 26.12, Est GFR (MDRD) Af Amer 61, Est GFR (MDRD) Non-Af 50 L, BUN/Creatinine Ratio 19.3, Glucose 299 H, Lactic Acid 2.9 H*, Calcium 10.0, Total Bilirubin 1.40 H, AST 528 H, ALT 321 H, Alkaline Phosphatase 293 H, Total Protein 8.7 H, Albumin 3.3, Globulin 5.4 H, Albumin/Globulin Ratio 0.6 L 10/05/23 20:15: Urine Color Yellow, Urine Clarity Clear, Urine pH 6.0, Ur Specific [place] 1.010, Urine Protein 500 H, Urine Glucose (UA) 100 H, Urine Ketones Negative, Urine Occult Blood 25 H, Urine Nitrite Negative, Urine Bilirubin Negative, Urine Urobilinogen Normal, Ur Leukocyte Esterase 500 H, Urine RBC 0 SEEN, Urine WBC 10-25 SEEN, Ur Squamous Epith Cells 0 SEEN, Urine Bacteria 0 SEEN, Urine Mucus 0 SEEN 10/06/23 05:20: WBC 11.2 H, RBC 2.96 L, Hgb 8.1 L, Hct 26.1 L, MCV 88.2, MCH 27.4, MCHC 31.0 L, RDW Std Deviation 45.1 H, RDW Coeff of Alanna 14.1, Plt Count 2 14, MPV 10.3, Immature Gran % (Auto) 0.500, Neut % (Auto) 93.1 H, Lymph % (Auto) 3.1 L, [place] % (Auto) 3.0, Eos % (Auto) 0.0, Baso % (Auto) 0.3, Absolute Neuts (auto) 10.4 H, Absolute Lymphs (auto) 0.35 L, Nucleated RBC % 0, Sodium 142, Potassium 3.4 L, Chloride 115 H, Carbon Dioxide 20.0 L, Anion Gap 7, BUN 17, Creatinine 1.04 H, Estim Creat Clear Calc 27.04, Est GFR (MDRD) Af Amer 64, Est GFR (MDRD) Non-Af 53 L, BUN/Creatinine Ratio 16.3, Glucose 247 H, Calcium 7.2 L, Phosphorus 2.6, Magnesium 1.1 L, Total Bilirubin 1.20 H, AST 174 H, ALT 204 H, Alkaline Phosphatase 188 H, Total Protein 6.1 L, Albumin 2.2 L, Globulin 3.9, Albumin/Globulin Ratio 0.6 L Micro: Microbiology 10/05/23 20:15 Urine Catheter - Catheter Urine Culture - Preliminary Staphylococcus aureus 10/05/23 19:50 Mucosa - Nose SARS-CoV-2, Influenza & RSV (PCR) - Final Imaging Radiology Impression Abdomen/Pelvis CT 10/05/23 19:24 IMPRESSION: Nonspecific gallbladder distention with wall thickening/edema. Consider further evaluation by gallbladder ultrasound. Abnormal biliary distention with 14 mm common bile duct, no calcified bile duct calculus. 9 mm hyperdense right cortical cystic lesion. Although almost definitely benign six-month follow-up recommended for stability. Electronically Signed: Dick Aleman MD at 20:40 EST , Chest X-Ray 10/05/23 19:59 IMPRESSION: No radiographic evidence of acute cardiopulmonary disease. Electronically Signed: Dick Aleman MD at 20:28 EST , Gallbladder Ultrasound 10/05/23 21:03 IMPRESSION: Gallbladder sludge and mild pericholecystic fluid. No sonographic findings of definite acute cholecystitis. Dilated common bile duct without identifiable obstructing calculus. Electronically Signed: Dick Aleman MD at 22:58 EST , Assessment & Plan Assessment/Plan (1) Acute cholecystitis with acute cholangitis: PLAN: Plan This is a 88-year-old female being admitted for nausea vomiting and high-grade fever. I agree that there is a high probability of sepsis due to hepatobiliary origin. The patient presented with sepsis with clinical indicators of high-grade fever, tachycardia due to priority of hepatobiliary sepsis with acute sepsis-related organ dysfunction as evidenced by lactic acidosis 2.9, total bilirubin 1.4 with elevated liver chemistry, alkaline phosphatase 293, ALT 321, AST 528. Her LFTs are all improving. At this time she does not have any right upper quadrant pain. CT abdomen and right upper quadrant ultrasound does indicate did either she has a choledochal cyst, ampullary stricture or had a recent choledocholithiasis because there is no sign of pancreatic head mass or biliary stricture on imaging. Current imaging shows 14 mm dilated CBD with nonspecific GB distention and wall thickening. MRCP is pending. I do not think she needs any endoscopic intervention at this time as her LFTs are improving. I would recommend continue antibiotics. If the LFTs start going back up then she will need an ERCP to look for the etiology. Charges/Coding Visit Charges Inpatient E&M: 80797 Init Hosp L3
[2023-10-06] MEDS: Latanoprost 0.005% 1 Bottle 1 DRP EACH EYE (21:06)
[2023-10-06] MEDS: Atorvastatin Calcium 10 MG Tablet 5 MG PO (21:06)
[2023-10-07] VITALS (19 sets, daily range): BP systolic 103–151; BP diastolic 41–49; PULSE 85–137; RESP 16–20; TEMP 36.5–37.7; O2SAT 84–100; BMI 20.2
[2023-10-07 03:40] LABS: Absolute Lymphocyte Count 0.86 X10^3/uL (0.83-4.51); Absolute Neutrophil Count 9.4 X10^3/uL (2.0-7.7); Basophil# 0.03 X10^3/uL; Basophil% 0.3 % (0-1); Eosinophil# 0.03 X10^3/uL; Eosinophils% 0.3 % (0-5); Hematocrit 27.1 % (37-47); Hemoglobin 8.4 g/dL (12.0-15.0); Lymphocyte # 0.86 X10^3/ul (0.83-4.51); Mean Corpuscular Hgb 26.6 pg (27.0-32.0); Mean Corpuscular Volume 85.8 fL (81-99); Mean Platelet Vol. 10.1 fl (6.2-12.0); Monocyte% 3.7 % (0-10); NRBC Flagged by Analyzer 0 % (0-5); Neutrophil # 9.42 X10^3/uL (2.7-7.7); Neutrophil % 87.1 % (47-70); Platelet Count 227 K/mm3 (150-450); RBC Distribution Width CV 14.1 % (11.6-14.6); RBC Distribution Width SD 44.5 fl (35.1-43.9); Red Blood Count 3.16 M/mm3 (4.2-5.4); White Blood Count 10.8 K/mm3 (4.4-11.0)
[2023-10-07 04:03] LABS: ALB/GLOB Ratio 0.5 RATIO (0.9-2.4); AST(SGOT) 48 U/L (15-37); Alanine Aminotransfer ALT/SGPT 124 U/L (13-56); Albumin, Serum 2.2 g/dL (3.2-5.0); Alkaline Phosphatase 157 U/L (45-117); Anion Gap 7 (5-15); BUN 18 mg/dL (7-18); BUN/Creat Ratio 15.5 RATIO (10-20); Calcium,Total 8.3 mg/dL (8.5-10.1); Chloride 111 mmol/L (98-107); Creatinine, Serum 1.16 mg/dL (0.55-1.02); EST Glomerular Filtration Rate 47 mL/min (>60); Est Glom Filt Rate - Afr Amer 57 mL/min (>60); Estimated Creatinine Clearance 24.25 ml/min; Globulin 4.6 g/dL (2.2-4.2); Glucose 182 mg/dL (74-106); Potassium 3.9 mmol/L (3.5-5.1); Protein, Total 6.8 g/dL (6.4-8.2); Sodium Level 138 mmol/L (136-145)
[2023-10-07] MEDS: 0.9% Saline Lock 10 ML Syringe IV (05:10)
[2023-10-07] MEDS: Piperacil/Tazobactam 3.375 GM in 0.9% Normal Saline (50mL MB+) 50 ML IV ×3 (05:10→21:52)
--- NOTE | 2023-10-07 07:20 | PN.HOSP_ITS ---
Reason for Visit Reason for Visit: Diagnoses Acute cholecystitis (10/05/23) Other cholangitis (10/05/23) Other specified diseases of biliary tract (10/05/23) Subjective Subjective Feeling well. Denies abdominal pain. Objective Data Objective Data Vital Signs: Vital Signs Temp Pulse Resp BP Pulse Ox O2 Del Method O2 Flow Rate 37.2 C 103 H 18 147/41 H 96 Room Air 2 10/07/23 03:00 10/07/23 03:00 10/07/23 03:00 10/07/23 03:00 10/07/23 03:00 10/07/23 03:00 10/07/23 03:00 Oxygen Flow Rate (L/min) 2 Oxygen Delivery Method Room Air Weight: 46.992 kg Body Mass Index (BMI) 20.2 Intake & Output: Intake and Output for Last 24 Hours 10/05/23 10/06/23 10/07/23 23:59 23:59 23:59 Intake Total 3200.00 / 3200.00 951.67 / 951.67 Output Total 2400 / 2400 750 / 750 Balance 800.00 / 800.00 201.67 / 201.67 Medical Nutrition Assessment Dietitian: Malnutrition Criteria Met Start: 10/06/23 11:45 Freq: Status: Active Protocol: Document 10/06/23 11:45 JOAN (Rec: 10/06/23 11:45 [facility] [id number]) Nutrition Malnutrition Evidence of Malnutrition Exists Yes Evidenced By Suboptimal Energy Intake ( Severe),Weight Loss (Severe), Physical Changes (Moderate) Clinical Problem Altered Nutrient-Related Laboratory Values Etiology related to diabetes Signs/Symptoms as evidenced by gluc 247 Status Active Problem Chronic Disease or Condition Related Malnutrition Etiology related to inadequate energy intake Signs/Symptoms as evidenced by pt who admits eating small amounts and has had 6.2% unintended wt loss in < 4 months. Noted fat /muscle wt loss throughout body. Status Active Problem Recommendation Dietitian Recommendations/Changes As medically able, rec STANISLAW to liberal Regular Consistent CHO diet Talk to pt at time of follow up re: oral nutrition supplements - does not want at this time Lab / Micro Data 10/07/23 03:30 10/07/23 03:30 Labs: Laboratory Results - last 24 hr 10/07/23 03:30: WBC 10.8, RBC 3.16 L, Hgb 8.4 L, Hct 27.1 L, MCV 85.8, MCH 26.6 L, MCHC 31.0 L, RDW Std Deviation 44.5 H, RDW Coeff of Alanna 14.1, Plt Count 227, MPV 10.1, Immature Gran % (Auto) 0.600, Neut % (Auto) 87.1 H, Lymph % (Auto) 8.0 L, [place] % (Auto) 3.7, Eos % (Auto) 0.3, Baso % (Auto) 0.3, Absolute Neuts (auto) 9.4 H, Absolute Lymphs (auto) 0.86, Nucleated RBC % 0, Sodium 138, Potassium 3.9, Chloride 111 H, Carbon Dioxide 20.0 L, Anion Gap 7, BUN 18, Creatinine 1.16 H, Estim Creat Clear Calc 24.25, Est GFR (MDRD) Af Amer 57 L, Est GFR (MDRD) Non-Af 47 L, BUN/Creatinine Ratio 15.5, Glucose 182 H, Calcium 8.3 L, Total Bilirubin 1.40 H, AST 48 H, ALT 124 H, Alkaline Phosphatase 157 H, Total Protein 6.8, Albumin 2.2 L, Globulin 4.6 H, Albumin/Globulin Ratio 0.5 L Micro: Microbiology 10/05/23 20:15 Urine Catheter - Catheter Urine Culture - Final Meth. resistant Staph. aureus 10/05/23 19:50 Mucosa - Nose SARS-CoV-2, Influenza & RSV (PCR) - Final Radiography Diagnostic Testing: Radiology Impression MRCP 10/06/23 05:55 IMPRESSION: Cholecystitis, however it is not clear if it is acute or chronic or a combination of acute on chronic disease. Correlate with nuclear medicine HIDA scan to determine if the cystic duct is patent 1. Gallbladder: A small amount of gallbladder sludge is present. A small amount of pericholecystic fluid is also present. The gallbladder wall does not appear thickened on the current study. The CBD is dilated up to 1.34 cm in diameter with a small amount of clustered rounded low signal structures at its terminal in either representing stones or proteinaceous debris or sludge see image #31/60 series 10. Electronically Signed: Juan Ramon Patel MD at 16:12 EST Reading Location ID and State: [facility] / [place] , Service support , Physical Exam Const alert and no apparent distress Resp normal respiratory effort, no retractions, no use of accessory muscles and clear to auscultation bilaterally Cardio regular rate, regular rhythm, S1 normal heart sound and S2 normal heart sound GI normal to inspection, nondistended, normoactive bowel sounds, soft to palpation, non-tender and non-distended Neuro Sensorium / Orientation: awake and alert Assessment & Plan Assessment/Plan (1) Acute cholecystitis with acute cholangitis: PLAN: Plan Suspected acute choledocholithiasis * Ultrasound shows a gallbladder sludge with mild pericholecystic fluid. No sonographic findings of definitive acute cholecystitis. Dilated common bile duct without identifiable obstructing calculus. * CAT scan showed nonspecific gallbladder distention with wall thickening/edema. Abnormal biliary distention with 14 mm common bile duct. 9 mm hypodense right cortical cystic lesion. * Antibiotics with pip-tazo * Gastroenterology and general surgery on consult. * qSOFA 1, sepsis not present on admission. * 10/06: Discussed with Dr. Gonzalez, general surgery. Patient not a candidate for laparoscopic cholecystectomy at this time as gallbladder currently appears unremarkable. * MRCP: cholecystitis (acute v chronic). Small amount of GB sludge. Small amount of pericholecystic fluid. CBD dilated to 1.34 cm w small amount of clustered rounded low signal structures at its terminal in either representing stone or proteinaceous debris or sludge. hypertensive urgency: * Improved * Initially blood pressure was elevated 200/58 * continue metoprolol Chronic conditions: * Diabetes mellitus type 2: Clear liquid. Accu-Chek ACH cover with Humalog sliding scale. Hold oral hypoglycemic agent. * Severe protein calorie malnutrition, chronic: Imaging Account Manager consult. Ensure supplementation. * CKD stage IV: Last hospitalization for diarrhea, urine retention and MERCEDES: Patient was admitted for 3 days in May 2023. UTI was ruled out. MERCEDES improved. Currently patient denies dysuria or burning micturition but she has history of UTI in the past. BUNs/creatinine 21/1.09, estimated creatinine clearance 26 mL per minute. Usually her creatinine stays 1.0-1.1 at her baseline. MERCEDES ruled out. DVT prophylaxis, high risk: Lovenox 30 mg subcu daily. Living will/advanced directive/end of life care: Full code Charges/Coding Visit Charges Inpatient E&M: 05813 Subs Hosp L2
--- NOTE | 2023-10-07 07:44 | PN.SURG_ITS ---
Subjective Subjective Patient evaluated in conjunction with Dr. Gonzalez. Patient denies nausea, vomiting. She denies abdominal pain at rest. Objective Data Objective Data Vital Signs: Vital Signs Temp Pulse Resp BP Pulse Ox O2 Del Method O2 Flow Rate 98.9 F 103 H 18 147/41 H 98 Nasal Cannula 2 10/07/23 03:00 10/07/23 03:00 10/07/23 03:00 10/07/23 03:00 10/07/23 07:22 10/07/23 07:22 10/07/23 07:22 Oxygen Flow Rate (L/min) 2 Oxygen Delivery Method Nasal Cannula Weight: 103 lb 9.6 oz Body Mass Index (BMI) 20.2 Intake & Output: Intake and Output for Last 24 Hours 10/05/23 10/06/23 10/07/23 23:59 23:59 23:59 Intake Total 3200.00 / 3200.00 951.67 / 951.67 Output Total 2400 / 2400 750 / 750 Balance 800.00 / 800.00 201.67 / 201.67 Medical Nutrition Assessment Dietitian: Malnutrition Criteria Met Start: 10/06/23 1 1:45 Freq: Status: Active Protocol: Document 10/06/23 11:45 SLA (Rec: 10/06/23 11:45 SLA [id number]) Nutrition Malnutrition Evidence of Malnutrition Exists Yes Evidenced By Suboptimal Energy Intake ( Severe),Weight Loss (Severe), Physical Changes (Moderate) Clinical Problem Altered Nutrient-Related Laboratory Values Etiology related to diabetes Signs/Symptoms as evidenced by gluc 247 Status Active Problem Chronic Disease or Condition Related Malnutrition Etiology related to inadequate energy intake Signs/Symptoms as evidenced by pt who admits eating small amounts and has had 6.2% unintended wt loss in < 4 months. Noted fat /muscle wt loss throughout body. Status Active Problem Recommendation Dietitian Recommendations/Changes As medically able, rec STANISLAW to liberal Regular Consistent CHO diet Talk to pt at time of follow up re: oral nutrition supplements - does not want at this time Lab / Micro Data 10/07/23 03:30 10/07/23 03:30 Labs: Laboratory Results - last 24 hr 10/07/23 03:30: WBC 10.8, RBC 3.16 L, Hgb 8.4 L, Hct 27.1 L, MCV 85.8, MCH 26.6 L, MCHC 31.0 L, RDW Std Deviation 44.5 H, RDW Coeff of Alanna 14.1, Plt Count 227, MPV 10.1, Immature Gran % (Auto) 0.600, Neut % (Auto) 87.1 H, Lymph % (Auto) 8.0 L, [place] % (Auto) 3.7, Eos % (Auto) 0.3, Baso % (Auto) 0.3, Absolute Neuts (auto) 9.4 H, Absolute Lymphs (auto) 0.86, Nucleated RBC % 0, Sodium 138, Potassium 3.9, Chloride 111 H, Carbon Dioxide 20.0 L, Anion Gap 7, BUN 18, Creatinine 1.16 H, Estim Creat Clear Calc 24.25, Est GFR (MDRD) Af Amer 57 L, Est GFR (MDRD) Non-Af 47 L, BUN/Creatinine Ratio 15.5, Glucose 182 H, Calcium 8.3 L, Total Bilirubin 1.40 H, AST 48 H, ALT 124 H, Alkaline Phosphatase 157 H, Total Protein 6.8, Albumin 2.2 L, Globulin 4.6 H, Albumin/Globulin Ratio 0.5 L Micro: Microbiology 10/05/23 20:15 Urine Catheter - Catheter Urine Culture - Final Meth. resistant Staph. aureus 10/05/23 19:50 Mucosa - Nose SARS-CoV-2, Influenza & RSV (PCR) - Final Radiography Diagnostic Testing: Radiology Impression MRCP 10/06/23 05:55 IMPRESSION: Cholecystitis, however it is not clear if it is acute or chronic or a combination of acute on chronic disease. Correlate with nuclear medicine HIDA scan to determine if the cystic duct is patent 1. Gallbladder: A small amount of gallbladder sludge is present. A small amount of pericholecystic fluid is also present. The gallbladder wall does not appear thickened on the current study. The CBD is dilated up to 1.34 cm in diameter with a small amount of clustered rounded low signal structures at its terminal in either representing stones or proteinaceous debris or sludge see image #31/60 series 10. Electronically Signed: Juan Ramon Patel MD at 16:12 EST Reading Location ID and State: [address] [place] [address] , Service support , Physical Exam GI GI Narrative: Abdomen- soft, tenderness in the right lower/pelvic region. Very little tenderness in the RUQ. Positive bowel sounds. Assessment & Plan Assessment/Plan (1) Acute UTI: PLAN: Cultures grew out MRSA Blood cultures pending (2) Common bile duct dilation: PLAN: Dr. Gonzalez has also evaluated this patient Pending MRCP results, patient may need a ERCP versus susan tube versus cholecystectomy We will continue to monitor this patient Charges/Coding Visit Charges Inpatient E&M: 71834 [facility] L1
[2023-10-07] MEDS: Sucralfate 1 GM Tablet PO ×2 (08:08→16:32)
[2023-10-07] MEDS: Iron Polysaccharide Complex 150 MG CAPSULE PO (09:47)
[2023-10-07] MEDS: Enoxaparin 30 MG/0.3 ML Syringe SC (09:47)
[2023-10-07] MEDS: Ascorbic Acid 500 MG Tablet PO (09:47)
[2023-10-07] MEDS: Acetaminophen 325 MG Tablet 650 MG PO ×2 (09:47→16:32)
[2023-10-07] MEDS: Metoprolol Tartrate 50 MG Tablet PO (09:47)
[2023-10-07] MEDS: Vibegron 75 MG TABLET PO (09:47)
[2023-10-07] MEDS: Pantoprazole Sodium 40 MG Tablet PO ×2 (09:47→20:54)
--- NOTE | 2023-10-07 15:06 | EX.PCM.PN.GI ---
Objective Data Objective Data Vital Signs: Vital Signs Temp Pulse Resp BP Pulse Ox O2 Del Method O2 Flow Rate 99.1 F 108 H 18 127/41 H 98 Room Air 2 10/07/23 09:28 10/07/23 09:47 10/07/23 09:28 10/07/23 09:47 10/07/23 09:28 10/07/23 09:35 10/07/23 09:28 Oxygen Flow Rate (L/min) 2 Oxygen Delivery Method Room Air Weight: 103 lb 9.6 oz Body Mass Index (BMI) 20.2 Intake & Output: Intake and Output for Last 24 Hours 10/05/23 10/06/23 10/07/23 23:59 23:59 23:59 Intake Total 3200.00 / 3200.00 951.67 / 951.67 Output Total 2400 / 2400 750 / 750 Balance 800.00 / 800.00 201.67 / 201.67 Medical Nutrition Assessment Dietitian: Malnutrition Criteria Met Start: 10/06/23 11:45 Freq: Status: Active Protocol: Document 10/06/23 11:45 [facility] (Rec: 10/06/23 11:45 [facility] [id number]) Nutrition Malnutrition Evidence of Malnutrition Exists Yes Evidenced By Suboptimal Energy Intake ( Severe),Weight Loss (Severe), Physical Changes (Moderate) Clinical Problem Altered Nutrient-Related Laboratory Values Etiology related to diabetes Signs/Symptoms as evidenced by gluc 247 Status Active Problem Chronic Disease or Condition Related Malnutrition Etiology related to inadequate energy intake Signs/Symptoms as evidenced by pt who admits eating small amounts and has had 6.2% unintended wt loss in < 4 months. Noted fat /muscle wt loss throughout body. Status Active Problem Recommendation Dietitian Recommendations/Changes As medically able, rec STANISLAW to liberal Regular Consistent CHO diet Talk to pt at time of follow up re: oral nutrition supplements - does not want at this time Lab / Micro Data 10/07/23 03:30 10/07/23 03:30 Labs: Laboratory Results - last 24 hr 10/07/23 03:30: WBC 10.8, RBC 3.16 L, Hgb 8.4 L, Hct 27.1 L, MCV 85.8, MCH 26.6 L, MCHC 31.0 L, RDW Std Deviation 44.5 H, RDW Coeff of Alanna 14.1, Plt Count 227, MPV 10.1, Immature Gran % (Auto) 0.600, Neut % (Auto) 87.1 H, Lymph % (Auto) 8.0 L, [place] % (Auto) 3.7, Eos % (Auto) 0.3, Baso % (Auto) 0.3, Absolute Neuts (auto) 9.4 H, Absolute Lymphs (auto) 0.86, Nucleated RBC % 0, Sodium 138, Potassium 3.9, Chloride 111 H, Carbon Dioxide 20.0 L, Anion Gap 7, BUN 18, Creatinine 1.16 H, Estim Creat Clear Calc 24.25, Est GFR (MDRD) Af Amer 57 L, Est GFR (MDRD) Non-Af 47 L, BUN/Creatinine Ratio 15.5, Glucose 182 H, Calcium 8.3 L, Total Bilirubin 1.40 H, AST 48 H, ALT 124 H, Alkaline Phosphatase 157 H, Total Protein 6.8, Albumin 2.2 L, Globulin 4.6 H, Albumin/Globulin Ratio 0.5 L Micro: Microbiology 10/05/23 19:33 Blood Culture (Wb) - Left Wrist Blood Culture - Preliminary GNR lactose cadd drafter 10/05/23 20:15 Urine Catheter - Catheter Urine Culture - Final Meth. resistant Staph. aureus 10/05/23 19:50 Mucosa - Nose SARS-CoV-2, Influenza & RSV (PCR) - Final Radiography Diagnostic Testing: Radiology Impression MRCP 10/06/23 05:55 IMPRESSION: Cholecystitis, however it is not clear if it is acute or chronic or a combination of acute on chronic disease. Correlate with nuclear medicine HIDA scan to determine if the cystic duct is patent 1. Gallbladder: A small amount of gallbladder sludge is present. A small amount of pericholecystic fluid is also present. The gallbladder wall does not appear thickened on the current study. The CBD is dilated up to 1.34 cm in diameter with a small amount of clustered rounded low signal structures at its terminal in either representing stones or proteinaceous debris or sludge see image #31/60 series 10. Electronically Signed: Juan Ramon Patel MD at 16:12 EST Reading Location ID and State: [facility] / [place] , Service support , Physical Exam Const alert and no apparent distress Resp normal respiratory effort, no retractions, no use of accessory muscles and clear to auscultation bilaterally Cardio regular rate, regular rhythm, S1 normal heart sound and S2 normal heart sound GI normal to inspection, nondistended, normoactive bowel sounds, soft to palpation, non-tender and non-distended Neuro Sensorium / Orientation: awake and alert
[2023-10-07] MEDS: Tamsulosin HCl 0.4 MG Capsule 0.400000000000000022 MG PO (16:32)
--- NOTE | 2023-10-07 16:55 | RAD_ITS ---
INDICATION: sob EXAMINATION/TECHNIQUE: X-RAY - XR Chest 1 View COMPARISON: October 05, 2023 FINDINGS: LINES/DEVICES: None. LUNGS: There is diffuse prominence of the lung interstitium. There is partial airspace disease at the lung bases. There is mild central pulmonary vascular congestion. MEDIASTINUM AND CARDIOVASCULAR STRUCTURES: Cardiac silhouette not enlarged. Central airways and mediastinal contour are unremarkable. BONES AND SOFT TISSUES: Unremarkable. RAD/Chest 1 View (Portable) IMPRESSION: Mild central pulmonary vascular congestion. Prominent lung interstitium. Bibasilar airspace disease. Findings appear new when compared to the prior study. Electronically Signed: Alexandru Causey, at 17:21 EST ,
--- NOTE | 2023-10-07 17:33 | PN.GI_ITS ---
Subjective Subjective Patient seen and examined today at the bedside. She does not have much pain. She does have a little bit of nausea and some bloating with some right upper quadrant discomfort. Objective Data Objective Data Vital Signs: Vital Signs Temp Pulse Resp BP Pulse Ox O2 Del Method O2 Flow Rate 98.1 F 85 16 151/46 H 94 Nasal Cannula 4 10/07/23 15:23 10/07/23 15:23 10/07/23 15:23 10/07/23 15:23 10/07/23 16:25 10/07/23 16:25 10/07/23 16:25 Oxygen Flow Rate (L/min) 4 Oxygen Delivery Method Nasal Cannula Weight: 103 lb 9.6 oz Body Mass Index (BMI) 20.2 Intake & Output: Intake and Output for Last 24 Hours 10/05/23 10/06/23 10/07/23 23:59 23:59 23:59 Intake Total 3200.00 / 3200.00 1001.67 / 1001.67 Output Total 2400 / 2400 1500 / 1500 Balance 800.00 / 800.00 -498.33 / -498.33 Medical Nutrition Assessment Dietitian: Malnutrition Criteria Met Start: 10/06/23 11:45 Freq: Status: Active Protocol: Document 10/06/23 11:45 [facility] (Rec: 10/06/23 11:45 [facility] [id number]) Nutrition Malnutrition Evidence of Malnutrition Exists Yes Evidenced By Suboptimal Energy Intake ( Severe),Weight Loss (Severe), Physical Changes (Moderate) Clinical Problem Altered Nutrient-Related Laboratory Values Etiology related to diabetes Signs/Symptoms as evidenced by gluc 247 Status Active Problem Chronic Disease or Condition Related Malnutrition Etiology related to inadequate energy intake Signs/Symptoms as evidenced by pt who admits eating small amounts and has had 6.2% unintended wt loss in < 4 months. Noted fat /muscle wt loss throughout body. Status Active Problem Recommendation Dietitian Recommendations/Changes As medically able, rec STANISLAW to liberal Regular Consistent CHO diet Talk to pt at time of follow up re: oral nutrition supplements - does not want at this time Lab / Micro Data 10/07/23 03:30 10/07/23 03:30 Labs: Laboratory Results - last 24 hr 10/07/23 03:30: WBC 10.8, RBC 3.16 L, Hgb 8.4 L, Hct 27.1 L, MCV 85.8, MCH 26.6 L, MCHC 31.0 L, RDW Std Deviation 44.5 H, RDW Coeff of Alanna 14.1, Plt Count 227, MPV 10.1, Immature Gran % (Auto) 0.600, Neut % (Auto) 87.1 H, Lymph % (Auto) 8.0 L, [place] % (Auto) 3.7, Eos % (Auto) 0.3, Baso % (Auto) 0.3, Absolute Neuts (auto) 9.4 H, Absolute Lymphs (auto) 0.86, Nucleated RBC % 0, Sodium 138, Potassium 3.9, Chloride 111 H, Carbon Dioxide 20.0 L, Anion Gap 7, BUN 18, Creatinine 1.16 H, Estim Creat Clear Calc 24.25, Est GFR (MDRD) Af Amer 57 L, Est GFR (MDRD) Non-Af 47 L, BUN/Creatinine Ratio 15.5, Glucose 182 H, Calcium 8.3 L, Total Bilirubin 1.40 H, AST 48 H, ALT 124 H, Alkaline Phosphatase 157 H, Total Protein 6.8, Albumin 2.2 L, Globulin 4.6 H, Albumin/Globulin Ratio 0.5 L Micro: Microbiology 10/05/23 19:33 Blood Culture (Wb) - Left Wrist Blood Culture - Preliminary GNR lactose swage tender 10/05/23 20:15 Urine Catheter - Catheter Urine Culture - Final Meth. resistant Staph. aureus 10/05/23 19:50 Mucosa - Nose SARS-CoV-2, Influenza & RSV (PCR) - Final Radiography Diagnostic Testing: Radiology Impression MRCP 10/06/23 05:55 IMPRESSION: Cholecystitis, however it is not clear if it is acute or chronic or a combination of acute on chronic disease. Correlate with nuclear medicine HIDA scan to determine if the cystic duct is patent 1. Gallbladder: A small amount of gallbladder sludge is present. A small amount of pericholecystic fluid is also present. The gallbladder wall does not appear thickened on the current study. The CBD is dilated up to 1.34 cm in diameter with a small amount of clustered rounded low signal structures at its terminal in either representing stones or proteinaceous debris or sludge see image #31/60 series 10. Electronically Signed: Juan Ramon Patel MD at 16:12 EST , Chest X-Ray 10/07/23 16:55 IMPRESSION: Mild central pulmonary vascular congestion. Prominent lung interstitium. Bibasilar airspace disease. Findings appear new when compared to the prior study. Electronically Signed: Alexandru Causey, at 17:21 EST Reading Location ID and State: [facility] / [place] Tel , Service support , Physical Exam Const alert and no apparent distress Resp normal respiratory effort, no retractions, no use of accessory muscles and clear to auscultation bilaterally Cardio regular rate, regular rhythm, S1 normal heart sound and S2 normal heart sound GI normal to inspection, nondistended, normoactive bowel sounds, soft to palpation, non-tender and non-distended Neuro Sensorium / Orientation: awake and alert Assessment & Plan Assessment/Plan (1) Common bile duct dilation: (2) Acute cholecystitis with acute cholangitis: PLAN: Plan The MRI results were reviewed with the patient and it does show a persistently dilated common bile duct in the setting of a gallbladder. The common bile duct is much larger than would be expected for someone with her age with an intact gallbladder and less she had a choledochal cyst. I do not see any signs of choledochal cyst on her imaging. I explained to her that we could decompress her duct with ERCP and she would like to proceed with that procedure. Plan is for ERCP tomorrow. Charges/Coding Visit Charges Inpatient E&M: 17014 Subs Hosp L3
[2023-10-07] MEDS: Furosemide 40 MG/4 ML Vial IV (17:48)
[2023-10-07 18:01] LABS: Allen Test Positive; Base Excess -7 mmol/L (-2 to +2); Bicarbonate 17.5 mmol/L (22-26); Blood Gas Specimen Type ART; Mode Not entered; O2 Delivery Device Cannula; PO2 81 mmHG (75-100); SITE L Brach; SO2 97 % (95-99); Total Carbon Dioxide 18 mmol/L; pCO2 25.8 mmHg (35-45); pH 7.44 (7.35-7.45)
[2023-10-07] MEDS: Ipratropium/Albuterol Sulfate 3 ML AMPUL.NEB INHALATION (18:52)
[2023-10-07] MEDS: Atorvastatin Calcium 10 MG Tablet 5 MG PO (20:54)
[2023-10-07] MEDS: Latanoprost 0.005% 1 Bottle 1 DRP EACH EYE (20:55)
[2023-10-08] VITALS (17 sets, daily range): BP systolic 82–143; BP diastolic 38–59; PULSE 92–128; RESP 14–22; TEMP 36.4–37.4; O2SAT 93–99; BMI 19.8
[2023-10-08 04:49] LABS: Absolute Lymphocyte Count 0.67 X10^3/uL (0.83-4.51); Absolute Neutrophil Count 6.9 X10^3/uL (2.0-7.7); Basophil# 0.02 X10^3/uL; Basophil% 0.2 % (0-1); Eosinophil# 0.02 X10^3/uL; Eosinophils% 0.2 % (0-5); Hematocrit 26.3 % (37-47); Hemoglobin 8.3 g/dL (12.0-15.0); Lymphocyte # 0.67 X10^3/ul (0.83-4.51); Lymphocyte % 8.4 % (19-41); Mean Corp Hgb Conc 31.6 g/dL (32-36); Mean Corpuscular Hgb 26.2 pg (27.0-32.0); Mean Platelet Vol. 10.1 fl (6.2-12.0); Monocyte# 0.42 X10^3/uL; Monocyte% 5.2 % (0-10); NRBC Flagged by Analyzer 0 % (0-5); Neutrophil # 6.85 X10^3/uL (2.7-7.7); Neutrophil % 85.5 % (47-70); Platelet Count 245 K/mm3 (150-450); RBC Distribution Width CV 14.1 % (11.6-14.6); RBC Distribution Width SD 43.2 fl (35.1-43.9); Red Blood Count 3.17 M/mm3 (4.2-5.4)
[2023-10-08] MEDS: 0.9% Saline Lock 10 ML Syringe IV (05:07)
[2023-10-08] MEDS: Piperacil/Tazobactam 3.375 GM in 0.9% Normal Saline (50mL MB+) 50 ML IV ×3 (05:07→21:50)
[2023-10-08 05:11] LABS: ALB/GLOB Ratio 0.5 RATIO (0.9-2.4); AST(SGOT) 20 U/L (15-37); Alanine Aminotransfer ALT/SGPT 79 U/L (13-56); Albumin, Serum 2.3 g/dL (3.2-5.0); Alkaline Phosphatase 142 U/L (45-117); Anion Gap 9 (5-15); BUN 19 mg/dL (7-18); BUN/Creat Ratio 15.2 RATIO (10-20); Calcium,Total 8.9 mg/dL (8.5-10.1); Chloride 103 mmol/L (98-107); Creatinine, Serum 1.25 mg/dL (0.55-1.02); EST Glomerular Filtration Rate 43 mL/min (>60); Est Glom Filt Rate - Afr Amer 52 mL/min (>60); Estimated Creatinine Clearance 22.78 ml/min; Glucose 239 mg/dL (74-106); Potassium 3.9 mmol/L (3.5-5.1); Protein, Total 7.3 g/dL (6.4-8.2); Sodium Level 135 mmol/L (136-145)
[2023-10-08] MEDS: Ipratropium/Albuterol Sulfate 3 ML AMPUL.NEB INHALATION ×3 (07:17→20:01)
--- NOTE | 2023-10-08 07:23 | PN.HOSP_ITS ---
Reason for Visit Reason for Visit: Diagnoses Acute cholecystitis (10/05/23) Other cholangitis (10/05/23) Other specified diseases of biliary tract (10/05/23) Urinary tract infection, site not specified (10/05/23) Subjective Subjective Had shortness of breath yesterday. She received furosemide. Today, breathing better. Underwent ERCP. Denies abdominal pain. Objective Data Objective Data Vital Signs: Vital Signs Temp Pulse Resp BP Pulse Ox O2 Del Method O2 Flow Rate 36.6 C 114 H 18 119/46 L 93 Nasal Cannula 2 10/08/23 04:30 10/08/23 07:18 10/08/23 07:18 10/08/23 04:30 10/08/23 07:18 10/08/23 07:18 10/08/23 07:18 Oxygen Flow Rate (L/min) 2 Oxygen Delivery Method Nasal Cannula Weight: 45.904 kg Body Mass Index (BMI) 19.8 Intake & Output: Intake and Output for Last 24 Hours 10/06/23 10/07/23 10/08/23 23:59 23:59 23:59 Intake Total 3200.00 / 3200.00 / 50 / 50 Output Total 2400 / 2400 3200 / 3200 750 / 750 Balance 800.00 / 800.00 -1188.33 / -1188.33 -700 / -700 Medical Nutrition Assessment Dietitian: Malnutrition Criteria Met Start: 10/06/23 11:45 Freq: Status: Active Protocol: Document 10/06/23 11:45 JOAN (Rec: 10/06/23 11:45 SLA [id number]) Nutrition Malnutrition Evidence of Malnutrition Exists Yes Evidenced By Suboptimal Energy Intake ( Severe),Weight Loss (Severe), Physical Changes (Moderate) Clinical Problem Altered Nutrient-Related Laboratory Values Etiology related to diabetes Signs/Symptoms as evidenced by gluc 247 Status Active Problem Chronic Disease or Condition Related Malnutrition Etiology related to inadequate energy intake Signs/Symptoms as evidenced by pt who admits eating small amounts and has had 6.2% unintended wt loss in < 4 months. Noted fat /muscle wt loss throughout body. Status Active Problem Recommendation Dietitian Recommendations/Changes As medically able, rec STANISLAW to liberal Regular Consistent CHO diet Talk to pt at time of follow up re: oral nutrition supplements - does not want at this time Lab / Micro Data 10/08/23 04:39 10/08/23 04:39 Labs: Laboratory Results - last 24 hr 10/08/23 04:39: WBC 8.0, RBC 3.17 L, Hgb 8.3 L, Hct 26.3 L, MCV 83.0, MCH 26.2 L , MCHC 31.6 L, RDW Std Deviation 43.2, RDW Coeff of Alanna 14.1, Plt Count 245, MPV 10.1, Immature Gran % (Auto) 0.500, Neut % (Auto) 85.5 H, Lymph % (Auto) 8.4 L, [place] % (Auto) 5.2, Eos % (Auto) 0.2, Baso % (Auto) 0.2, Absolute Neuts (auto) 6.9, Absolute Lymphs (auto) 0.67 L, Nucleated RBC % 0, Sodium 135 L, Potassium 3.9, Chloride 103, Carbon Dioxide 23.0, Anion Gap 9, BUN 19 H, Creatinine 1.25 H , Estim Creat Clear Calc 22.78, Est GFR (MDRD) Af Amer 52 L, Est GFR (MDRD) Non- Af 43 L, BUN/Creatinine Ratio 15.2, Glucose 239 H, Calcium 8.9, Total Bilirubin 1.20 H, AST 20, ALT 79 H, Alkaline Phosphatase 142 H, Total Protein 7.3, Albumin 2.3 L, Globulin 5.0 H, Albumin/Globulin Ratio 0.5 L Micro: Microbiology 10/05/23 19:33 Blood Culture (Wb) - Left Wrist Blood Culture - Preliminary GNR lactose sew out operator 10/05/23 20:15 Urine Catheter - Catheter Urine Culture - Final Meth. resistant Staph. aureus 10/05/23 19:50 Mucosa - Nose SARS-CoV-2, Influenza & RSV (PCR) - Final ABG Data ABG results: ABG 10/07/23 17:57 Specimen Type ART Sample Site L Brach pH 7.44 Bicarbonate Actual 17.5 L Total CO2 18 Base Excess -7 L O2 Saturation 97 O2 % 3.0 ABG pCO2 25.8 L ABG pO2 81 Binu Test Positive O2 Delivery Device Cannula Vent Mode Not entered Radiography Diagnostic Testing: Radiology Impression Chest X-Ray 10/07/23 16:55 IMPRESSION: Mild central pulmonary vascular congestion. Prominent lung interstitium. Bibasilar airspace disease. Findings appear new when compared to the prior study. Electronically Signed: Alexandru Causey, at 17:21 EST Reading Location ID and State: [facility] / [place] Tel , Service support , Physical Exam Const alert and no apparent distress Resp normal respiratory effort, no retractions, no use of accessory muscles and clear to auscultation bilaterally Cardio regular rate, regular rhythm, S1 normal heart sound and S2 normal heart sound GI normal to inspection, nondistended, normoactive bowel sounds, soft to palpation, non-tender and non-distended Extremity normal to inspection and full ROM Neuro Sensorium / Orientation: awake and alert Assessment & Plan Assessment/Plan (1) Acute cholecystitis with acute cholangitis: PLAN: Plan Suspected acute choledocholithiasis * Ultrasound shows a gallbladder sludge with mild pericholecystic fluid. No sonographic findings of definitive acute cholecystitis. Dilated common bile duct without identifiable obstructing calculus. * CAT scan showed nonspecific gallbladder distention with wall thickening/edema. Abnormal biliary distention with 14 mm common bile duct. 9 mm hypodense right cortical cystic lesion. * Antibiotics with pip-tazo * Gastroenterology and general surgery on consult. * qSOFA 1, sepsis not present on admission. * 10/06: Discussed with Dr. Gonzalez, general surgery. Patient not a candidate for laparoscopic cholecystectomy at this time as gallbladder currently appears unremarkable. * MRCP: cholecystitis (acute v chronic). Small amount of GB sludge. Small amount of pericholecystic fluid. CBD dilated to 1.34 cm w small amount of clustered rounded low signal structures at its terminal in either representing stone or proteinaceous debris or sludge. * ERCP pending. Acute hypoxic respiratory failure * Developed 10/07 with a pulse ox dropped down to 84 and reported history by nursing respiratory rate of 40. * Chest x-ray performed the same day showed mild central pulmonary vascular td estion. Personal review, shows CHF pattern. Patient did receive a dose of IV furosemide on the . * Check echo hypertensive urgency: * Improved * Initially blood pressure was elevated 200/58 * continue metoprolol Chronic conditions: * Diabetes mellitus type 2: Clear liquid. Accu-Chek ACH cover with Humalog sliding scale. Hold oral hypoglycemic agent. * Severe protein calorie malnutrition, chronic: Patcher consult. Ensure supplementation. * CKD stage IV: Last hospitalization for diarrhea, urine retention and MERCEDES: Patient was admitted for 3 days in May 2023. UTI was ruled out. MERCEDES improved. Currently patient denies dysuria or burning micturition but she has history of UTI in the past. BUNs/creatinine 21/1.09, estimated creatinine clearance 26 mL per minute. Usually her creatinine stays 1.0-1.1 at her baseline. MERCEDES ruled out. DVT prophylaxis, high risk: Lovenox 30 mg subcu daily. Living will/advanced directive/end of life care: Full code DW pt's dtr at bedside. Charges/Coding Visit Charges Inpatient E&M: 33272 Subs Hosp L2
--- NOTE | 2023-10-08 07:46 | ECHOD_ITS ---
Reason For Study: CHF Procedure This was a 2D Doppler, Color Flow transthoracic echocardiogram. Exam performed portable in ICU/CCU. Left Ventricle Normal LV size. The estimated ejection fraction is 70 %. Unable to assess diastolic dysfunction. No regional wall motion abnormalities noted. Right Ventricle Normal RV size. Normal systolic function. Atria The left and right atria are normal. No doppler evidence for ASD. Mitral Valve There is severe mitral annular calcification. Moderate to severe mitral stenosis. Trivial mitral valve insufficiency. Tricuspid Valve There is no tricuspid stenosis. Mild tricuspid valve insufficiency. Pulmonary artery systolic pressure is 45 mmHg. Aortic Valve Trisinus/trileaflet aortic valve. Aortic sclerosis, no stenosis. No aortic valve insufficiency. Pulmonic Valve There is no pulmonic valvular stenosis. No pulmonic valve insufficiency. Great Vessels Normal aortic root. Pericardium/Pleural No pericardial effusion. MMode/2D Measurements & Calculations LVIDd: 3.1 cm IVSd: 1.3 cm Ao root diam: 2.9 cm LVIDs: 1.8 cm LVPWd: 1.2 cm RVDd: 2.7 cm FS: 42.0 % LAV(MOD-bp): 31.6 ml LVAd ap4: 15.0 cm2 SV(MOD-sp4): 22.0 ml LAV(MOD-bp) Indexed: 22.6 ml/m2 LVLd ap4: 5.8 cm LAV(MOD-sp2): 26.3 ml EDV(MOD-sp4): 32.1 ml LAV(MOD-sp4): 37.6 ml EDV(sp4-el): 33.1 ml LVAs ap4: 7.7 cm2 LVLs ap4: 4.9 cm ESV(MOD-sp4): 10.1 ml ESV(sp4-el): 10.2 ml EF(MOD-sp4): 68.5 % EF(sp4-el): 69.1 % SV(sp4-el): 22.9 ml LA A4 area: 14.9 cm2 LA dimension(2D): 4.1 cm RA A4 area: 7.6 cm2 TAPSE: 1.9 cm Time Measurements MV dec time: 0.34 sec Doppler Measurements & Calculations MV E max joe: 163.4 cm/sec Lat Peak E' Joe: 6.2 cm/sec Med Peak E' Joe: 3.5 cm/sec MV A max joe: 194.2 cm/sec E/E' lat: 26.5 E/E' med: 47.2 MV E/A: 0.84 MV V2 max: 247.4 cm/sec Ao V2 max: 124.1 cm/sec MV max P.5 mmHg MV dec slope: 478.8 cm/sec2 Ao max P.2 mmHg MV V2 mean: 167.0 cm/sec Ao V2 mean: 93.3 cm/sec MV mean P.0 mmHg Ao mean P.7 mmHg MV V2 VTI: 50.7 cm Ao V2 VTI: 26.3 cm LV V1 max: 81.7 cm/sec PA V2 max: 108.3 cm/sec TR max joe: 297.2 cm/sec LV V1 max P.7 mmHg TR max P.3 mmHg ECHO/Echo Complete Interpretation Summary The estimated ejection fraction is 70 %. Unable to assess diastolic dysfunction. Trivial mitral valve insufficiency. Moderate to severe mitral stenosis Ordering Physician: Dung Littlejohn Referring Physician: Claire Sharif Performed By: Rossy Johnson, PANKAJCS, RVT
--- NOTE | 2023-10-08 07:48 | PCM.PN.SRG ---
Subjective Subjective Patient evaluated resting comfortably in bed. She notes her breathing is much improved since the addition of the oxygen and breathing treatments. Patient denies nausea, vomiting, fever. She denies right upper quadrant abdominal pain. Objective Data Objective Data Vital Signs: Vital Signs Temp Pulse Resp BP Pulse Ox O2 Del Method O2 Flow Rate 97.9 F 114 H 18 119/46 L 93 Nasal Cannula 2 10/08/23 04:30 10/08/23 07:18 10/08/23 07:18 10/08/23 04:30 10/08/23 07:18 10/08/23 07:18 10/08/23 07:18 Oxygen Flow Rate (L/min) 2 Oxygen Delivery Method Nasal Cannula Weight: 101 lb 3.2 oz Body Mass Index (BMI) 19.8 Intake & Output: Intake and Output for Last 24 Hours 10/06/23 10/07/23 10/08/23 23:59 23:59 23:59 Intake Total 3200.00 / 3200.00 / 50 / 50 Output Total 2400 / 2400 3200 / 3200 750 / 750 Balance 800.00 / 800.00 -1188.33 / -1188.33 -700 / -700 Medical Nutrition Assessment Dietitian: Malnutrition Criteria Met Start: 10/06/23 11:45 Freq: Status: Active Protocol: Document 10/06/23 11:45 [facility] (Rec: 10/06/23 11:45 [facility] [id number]) Nutrition Malnutrition Evidence of Malnutrition Exists Yes Evidenced By Suboptimal Energy Intake ( Severe),Weight Loss (Severe), Physical Changes (Moderate) Clinical Problem Altered Nutrient-Related Laboratory Values Etiology related to diabetes Signs/Symptoms as evidenced by gluc 247 Status Active Problem Chronic Disease or Condition Related Malnutrition Etiology related to inadequate energy intake Signs/Symptoms as evidenced by pt who admits eating small amounts and has had 6.2% unintended wt loss in < 4 months. Noted fat /muscle wt loss throughout body. Status Active Problem Recommendation Dietitian Recommendations/Changes As medically able, rec STANISLAW to liberal Regular Consistent CHO diet Talk to pt at time of follow up re: oral nutrition supplements - does not want at this time Lab / Micro Data 10/08/23 04:39 10/08/23 04:39 Labs: Laboratory Results - last 24 hr 10/08/23 04:39: WBC 8.0, RBC 3.17 L, Hgb 8.3 L, Hct 26.3 L, MCV 83.0, MCH 26.2 L, MCHC 31.6 L, RDW Std Deviation 43.2, RDW Coeff of Alanna 14.1, Plt Count 245, MPV 10.1, Immature Gran % (Auto) 0.500, Neut % (Auto) 85.5 H, Lymph % (Auto) 8.4 L, [place] % (Auto) 5.2, Eos % (Auto) 0.2, Baso % (Auto) 0.2, Absolute Neuts (auto) 6.9, Absolute Lymphs (auto) 0.67 L, Nucleated RBC % 0, Sodium 135 L, Potassium 3.9, Chloride 103, Carbon Dioxide 23.0, Anion Gap 9, BUN 19 H, Creatinine 1.25 H, Estim Creat Clear Calc 22.78, Est GFR (MDRD) Af Amer 52 L, Est GFR (MDRD) Non-Af 43 L, BUN/Creatinine Ratio 15.2, Glucose 239 H, Calcium 8.9, Total Bilirubin 1.20 H, AST 20, ALT 79 H, Alkaline Phosphatase 142 H, Total Protein 7.3, Albumin 2.3 L, Globulin 5.0 H, Albumin/Globulin Ratio 0.5 L Micro: Microbiology 10/05/23 19:45 Blood Culture (Wb) - Anticubital Left Blood Culture - Preliminary No growth in 48 hours. 10/05/23 19:33 Blood Culture (Wb) - Left Wrist Blood Culture - Preliminary GNR lactose butter wrapper 10/05/23 20:15 Urine Catheter - Catheter Urine Culture - Final Meth. resistant Staph. aureus 10/05/23 19:50 Mucosa - Nose SARS-CoV-2, Influenza & RSV (PCR) - Final ABG Data ABG results: ABG 10/07/23 17:57 Specimen Type ART Sample Site L Brach pH 7.44 Bicarbonate Actual 17.5 L Total CO2 18 Base Excess -7 L O2 Saturation 97 O2 % 3.0 ABG pCO2 25.8 L ABG pO2 81 Binu Test Positive O2 Delivery Device Cannula Vent Mode Not entered Radiography Diagnostic Testing: Radiology Impression Chest X-Ray 10/07/23 16:55 IMPRESSION: Mild central pulmonary vascular congestion. Prominent lung interstitium. Bibasilar airspace disease. Findings appear new when compared to the prior study. Electronically Signed: Alexandru Causey, at 17:21 EST , Physical Exam GI GI Narrative: Abdomen- soft, nontender in the right upper quadrant. Tenderness noted in the mid pelvic region. Positive bowel sounds Assessment & Plan Assessment/Plan (1) Common bile duct dilation: PLAN: I am following this patient in conjunction with Dr. Gonzalez. He has also independently evaluated this patient. Patient is scheduled for an ERCP this morning with Dr. Olivas If ERCP is unsuccessful at allowing adequate drainage from the gallbladder, plan to proceed with a cholecystostomy tube placement. We will continue to monitor this patient closely (2) Acute UTI: Charges/Coding Visit Charges Inpatient E&M: 40768 Subs Hosp L1
[2023-10-08] MEDS: Lactated Ringers 1,000 ML 15 ML IV ×2 (10:42→12:53)
--- NOTE | 2023-10-08 10:50 | RAD_ITS ---
STUDY: ERCP. REASON FOR EXAM: Female, 88 years old. Dilated ducts. FLUOROSCOPY TIME (if supplied): ( 43.4 seconds ) minutes/seconds. 6.5 mGy TECHNIQUE: An ERCP was performed by the automatic grinder operator. Fluoroscopy services were provided. COMPARISON: None. FINDINGS: There is obstruction in the distal portion of the common bile duct. No contrast is seen entering the duodenum. A biliary stent was then placed. RAD/ERCP Biliary/Pancreas IMPRESSION: Biliary stent placement. Obstructed distal common bile duct. Electronically Signed: Noman Rangel MD at 13:50 EST ,
--- NOTE | 2023-10-08 12:41 | OP.CCLET_ITS ---
10/08/2023 Claire Sharif [address] [place] [address] Re : ERCP procedure for Kristin Prabhu Dear Dr. Sharif This procedure was performed on Sunday, October 08, 2023. My impressions and recommendations are as follows: Impressions : - The biliary system were markedly dilated, with a stone causing an obstruction. - Choledocholithiasis was found. Complete removal was accomplished by biliary sphincterotomy and balloon extraction. - A biliary sphincterotomy was performed. - The biliary tree was swept. - The right main hepatic duct was successfully dilated. - One temporary stent was placed into the common bile duct. Recommendations : My findings are described in the full procedure note, which is enclosed. If I can be of further assistance, please feel free to contact me at . Sincerely, Darren Olivas, 10/08/2023 12:40:18 PM This report has been signed electronically.
--- NOTE | 2023-10-08 12:41 | OP.ERCP_ITS ---
Patient Name: Kristin Pelletier Procedure Date: 10/08/2023 11:18 AM Date of : 1935 Age: 88 Procedure: ERCP Indications: Bile duct stone(s), Suspected ascending cholangitis Providers: Darren Olivas DO Medicines: Monitored Anesthesia Care Patient Profile: This is an 88 year old female. Refer to note in patient chart for documentation of history and physical. Patient has symptoms of acute right upper quadrant abdominal pain and acute jaundice. This patient has no history of previous ERCP. This patient has no history of surgical alteration of the upper digestive tract anatomy. Complications: No immediate complications. Procedure: Pre-Anesthesia Assessment: - Prior to the procedure, a History and Physical was performed, and patient medications and allergies were reviewed. The patient is competent. The risks and benefits of the procedure and the sedation options and risks were discussed with the patient. All questions were answered and informed consent was obtained. Patient identification and proposed procedure were verified by the physician in the pre-procedure area. Mental Status Examination: alert and oriented. Airway Examination: normal oropharyngeal airway and neck mobility. Respiratory Examination: clear to auscultation. CV Examination: normal. Prophylactic Antibiotics: The patient does not require prophylactic antibiotics. Prior Anticoagulants: The patient has taken no anticoagulant or antiplatelet agents. ASA Grade Assessment: III - A patient with severe systemic disease. After reviewing the risks and benefits, the patient was deemed in satisfactory condition to undergo the procedure. The anesthesia plan was to use monitored anesthesia care (MAC). Immediately prior to administration of medications, the patient was re-assessed for adequacy to receive sedatives. The heart rate, respiratory rate, oxygen saturations, blood pressure, adequacy of pulmonary ventilation, and response to care were monitored throughout the procedure. The physical status of the patient was re-assessed after the procedure. After obtaining informed consent, the scope was passed under direct vision. Throughout the procedure, the patient's blood pressure, pulse, and oxygen saturations were monitored continuously. The Duodenoscope was introduced through the mouth, and advanced to the duodenum and used to inject contrast into the bile duct and ventral pancreatic duct. The ERCP was accomplished without difficulty. The patient tolerated the procedure well. Scope In: 11:41:19 AM Scope Out: 12:13:06 PM Total Procedure Duration Time 0 hours 31 minutes 47 seconds Findings: The transportation engineer film was normal. The esophagus was successfully intubated under direct vision. The scope was advanced to a normal major papilla in the descending duodenum without detailed examination of the pharynx, larynx and associated structures, and upper GI tract. The upper GI tract was grossly normal. A straight Roadrunner wire was passed into the biliary tree. The short-nosed traction sphincterotome was passed over the guidewire and the bile duct was then deeply cannulated. Contrast was injected. Opacification of the entire biliary tree except for the cystic duct and gallbladder was successful. The maximum diameter of the ducts was 14 mm. The lower third of the main bile duct contained one stone, which was 6 mm in diameter. The entire biliary tree except for the cystic duct and gallbladder were markedly dilated, with a stone causing an obstruction. The largest diameter was 14 mm. A 5 mm biliary sphincterotomy was made with a monofilament traction (standard) sphincterotome using ERBE electrocautery. There was no post-sphincterotomy bleeding. The biliary tree was swept with a 12 mm balloon starting at the bifurcation. Sludge was swept from the duct. All stones were removed. The right main hepatic duct was successfully dilated with a 6-7-8 mm balloon dilator. One 10 Fr by 5 cm temporary stent was placed 5 cm into the common bile duct. Bile flowed through the stent. The stent was in good position. Impression: - The biliary system were markedly dilated, with a stone causing an obstruction. - Choledocholithiasis was found. Complete removal was accomplished by biliary sphincterotomy and balloon extraction. - A biliary sphincterotomy was performed. - The biliary tree was swept. - The right main hepatic duct was successfully dilated. - One temporary stent was placed into the common bile duct. Procedure Code(s): --- Professional --- 85642, Endoscopic retrograde cholangiopancreatography (ERCP); with placement of endoscopic stent into biliary or pancreatic duct, including pre- and post-dilation and guide wire passage, when performed, including sphincterotomy, when performed, each stent 85900, 59, Endoscopic retrograde cholangiopancreatography (ERCP); with trans-endoscopic balloon dilation of biliary/pancreatic duct(s) or of ampulla (sphincteroplasty), including sphincterotomy, when performed, each duct 34532, 51, Endoscopic retrograde cholangiopancreatography (ERCP); with removal of calculi/debris from biliary/pancreatic duct(s) CPT copyright 2021 [employer]. All rights reserved. The codes documented in this report are preliminary and upon field services director review may be revised to meet current compliance requirements. Darren Olivas DO 10/08/2023 12:40:18 PM This report has been signed electronically. Number of Addenda: 0 Note Initiated On: 10/08/2023 11:18 AM
[2023-10-08] MEDS: Ascorbic Acid 500 MG Tablet PO (13:37)
[2023-10-08] MEDS: Iron Polysaccharide Complex 150 MG CAPSULE PO (13:37)
[2023-10-08] MEDS: Sucralfate 1 GM Tablet PO ×2 (13:37→17:45)
[2023-10-08] MEDS: Metoprolol Tartrate 50 MG Tablet PO ×2 (13:37→21:50)
[2023-10-08] MEDS: Vibegron 75 MG TABLET PO (13:38)
[2023-10-08] MEDS: Enoxaparin 30 MG/0.3 ML Syringe SC (13:39)
[2023-10-08] MEDS: Pantoprazole Sodium 40 MG Tablet PO ×2 (13:39→21:50)
[2023-10-08] MEDS: Tamsulosin HCl 0.4 MG Capsule 0.400000000000000022 MG PO (17:45)
[2023-10-08] MEDS: Latanoprost 0.005% 1 Bottle 1 DRP EACH EYE (21:49)
[2023-10-08] MEDS: Atorvastatin Calcium 10 MG Tablet 5 MG PO (21:50)
[2023-10-08] MEDS: Albuterol 2.5 MG/3 ML VIAL.NEB. INHALATION (23:01)
[2023-10-09] VITALS (27 sets, daily range): BP systolic 52–167; BP diastolic 25–122; PULSE 85–120; RESP 8–20; TEMP 36.3–36.8; O2SAT 87–98; BMI 20.3
[2023-10-09] MEDS: Piperacil/Tazobactam 3.375 GM in 0.9% Normal Saline (50mL MB+) 50 ML IV ×3 (06:00→21:27)
[2023-10-09] MEDS: Ipratropium/Albuterol Sulfate 3 ML AMPUL.NEB INHALATION ×3 (06:49→18:24)
[2023-10-09 07:10] LABS: Absolute Lymphocyte Count 0.49 X10^3/uL (0.83-4.51); Absolute Neutrophil Count 4.3 X10^3/uL (2.0-7.7); Hematocrit 25.9 % (37-47); Hemoglobin 8.2 g/dL (12.0-15.0); Lymphocyte # 0.49 X10^3/ul (0.83-4.51); Lymphocyte % 9.4 % (19-41); Mean Corp Hgb Conc 31.7 g/dL (32-36); Mean Corpuscular Hgb 26.6 pg (27.0-32.0); Mean Corpuscular Volume 84.1 fL (81-99); Mean Platelet Vol. 9.7 fl (6.2-12.0); Monocyte% 7.7 % (0-10); NRBC Flagged by Analyzer 0 % (0-5); Neutrophil % 82.5 % (47-70); POSITIVE DIFFERENTIAL YES; Platelet Count 238 K/mm3 (150-450); RBC Distribution Width SD 42.5 fl (35.1-43.9); Red Blood Count 3.08 M/mm3 (4.2-5.4); White Blood Count 5.2 K/mm3 (4.4-11.0)
[2023-10-09 07:53] LABS: ALB/GLOB Ratio 0.5 RATIO (0.9-2.4); AST(SGOT) 16 U/L (15-37); Alanine Aminotransfer ALT/SGPT 60 U/L (13-56); Albumin, Serum 2.4 g/dL (3.2-5.0); Alkaline Phosphatase 137 U/L (45-117); Anion Gap 10 (5-15); BUN 19 mg/dL (7-18); BUN/Creat Ratio 16.5 RATIO (10-20); Calcium,Total 9.6 mg/dL (8.5-10.1); Chloride 104 mmol/L (98-107); Creatinine, Serum 1.15 mg/dL (0.55-1.02); EST Glomerular Filtration Rate 47 mL/min (>60); Est Glom Filt Rate - Afr Amer 57 mL/min (>60); Estimated Creatinine Clearance 24.76 ml/min; Globulin 5.2 g/dL (2.2-4.2); Glucose 318 mg/dL (74-106); Potassium 3.9 mmol/L (3.5-5.1); Protein, Total 7.6 g/dL (6.4-8.2); Sodium Level 137 mmol/L (136-145)
--- NOTE | 2023-10-09 09:18 | PN.HOSP_ITS ---
Reason for Visit Reason for Visit: Diagnoses Acute cholecystitis (10/05/23) Other cholangitis (10/05/23) Other specified diseases of biliary tract (10/05/23) Urinary tract infection, site not specified (10/05/23) Subjective Subjective Feels well. Denies abdominal pain. Objective Data Objective Data Vital Signs: Vital Signs Temp Pulse Resp BP Pulse Ox O2 Del Method O2 Flow Rate 36.3 C L 92 15 119/56 L 97 Room Air 2 10/09/23 04:00 10/09/23 04:00 10/09/23 04:00 10/09/23 04:00 10/09/23 04:00 10/09/23 04:00 10/08/23 20:16 Oxygen Flow Rate (L/min) 2 Oxygen Delivery Method Room Air Weight: 47.3 kg Body Mass Index (BMI) 20.3 Intake & Output: Intake and Output for Last 24 Hours 10/07/23 10/08/23 10/09/23 23:59 23:59 23:59 Intake Total / 1150 / 1150 327.25 / 327.25 Output Total 3200 / 3200 2775 / 2775 300 / 300 Balance -1188.33 / -1188.33 -1625 / -1625 27.25 / 27.25 Medical Nutrition Assessment Dietitian: Malnutrition Criteria Met Start: 10/06/23 11:45 Freq: Status: Active Protocol: Document 10/06/23 11:45 SLA (Rec: 10/06/23 11:45 [facility] [id number]) Nutrition Malnutrition Evidence of Malnutrition Exists Yes Evidenced By Suboptimal Energy Intake ( Severe),Weight Loss (Severe), Physical Changes (Moderate) Clinical Problem Altered Nutrient-Related Laboratory Values Etiology related to diabetes Signs/Symptoms as evidenced by gluc 247 Status Active Problem Chronic Disease or Condition Related Malnutrition Etiology related to inadequate energy intake Signs/Symptoms as evidenced by pt who admits eating small amounts and has had 6.2% unintended wt loss in < 4 months. Noted fat /muscle wt loss throughout body. Status Active Problem Recommendation Dietitian Recommendations/Changes As medically able, rec STANISLAW to liberal Regular Consistent CHO diet Talk to pt at time of follow up re: oral nutrition supplements - does not want at this time Lab / Micro Data 10/09/23 06:55 10/09/23 06:55 Labs: Laboratory Results - last 24 hr 10/09/23 06:55: WBC 5.2, RBC 3.08 L, Hgb 8.2 L, Hct 25.9 L, MCV 84.1, MCH 26.6 L , MCHC 31.7 L, RDW Std Deviation 42.5, RDW Coeff of Alanna 14.0, Plt Count 238, MPV 9.7, Immature Gran % (Auto) 0.400, Neut % (Auto) 82.5 H, Lymph % (Auto) 9.4 L, [place] % (Auto) 7.7, Eos % (Auto) 0.0, Baso % (Auto) 0.0, Absolute Neuts (auto) 4.3, Absolute Lymphs (auto) 0.49 L, Nucleated RBC % 0, Sodium 137, Potassium 3.9, Chloride 104, Carbon Dioxide 23.0, Anion Gap 10, BUN 19 H, Creatinine 1.15 H, Estim Creat Clear Calc 24.76, Est GFR (MDRD) Af Amer 57 L, Est GFR (MDRD) Non-Af 47 L, BUN/Creatinine Ratio 16.5, Glucose 318 H, Calcium 9.6, Total Bilirubin 0.70, AST 16, ALT 60 H, Alkaline Phosphatase 137 H, Total Protein 7.6, Albumin 2.4 L, Globulin 5.2 H, Albumin/Globulin Ratio 0.5 L Micro: Microbiology 10/05/23 19:33 Blood Culture (Wb) - Left Wrist Blood Culture - Final Klebsiella pneumoniae sp pneum 10/05/23 19:45 Blood Culture (Wb) - Anticubital Left Blood Culture - Preliminary No growth in 48 hours. 10/05/23 20:15 Urine Catheter - Catheter Urine Culture - Final Meth. resistant Staph. aureus 10/05/23 19:50 Mucosa - Nose SARS-CoV-2, Influenza & RSV (PCR) - Final Radiography Diagnostic Testing: Radiology Impression Echocardiogram 10/08/23 07:46 Interpretation Summary The estimated ejection fraction is 70 %. Unable to assess diastolic dysfunction. Trivial mitral valve insufficiency. Moderate to severe mitral stenosis Ordering Physician: Dung Littlejohn Referring Physician: Claire Sharif Performed By: Rossy Johnson, GREG, RVT Endo Retro Cholangiopancreatogram 10/08/23 10:50 IMPRESSION: Biliary stent placement. Obstructed distal common bile duct. Electronically Signed: Noman Rangel MD at 13:50 EST , Physical Exam Const alert and no apparent distress HEENT head/scalp atraumatic and moist oral mucous membranes Resp normal respiratory effort, no retractions, no use of accessory muscles and clear to auscultation bilaterally Cardio regular rate, regular rhythm, S1 normal heart sound and S2 normal heart sound GI normal to inspection, nondistended, normoactive bowel sounds and soft to palpation Extremity normal to inspection and full ROM Neuro Sensorium / Orientation: awake and alert Assessment & Plan Assessment/Plan (1) Acute cholecystitis with acute cholangitis: PLAN: Plan Suspected acute choledocholithiasis * Ultrasound shows a gallbladder sludge with mild pericholecystic fluid. No sonographic findings of definitive acute cholecystitis. Dilated common bile duct without identifiable obstructing calculus. * CAT scan showed nonspecific gallbladder distention with wall thickening/edema. Abnormal biliary distention with 14 mm common bile duct. 9 mm hypodense right cortical cystic lesion. * Antibiotics with pip-tazo * Gastroenterology and general surgery on consult. * qSOFA 1, sepsis not present on admission. * 10/06: Discussed with Dr. Gonzalez, general surgery. Patient not a candidate for laparoscopic cholecystectomy at this time as gallbladder currently appears u nremarkable. * MRCP: cholecystitis (acute v chronic). Small amount of GB sludge. Small amount of pericholecystic fluid. CBD dilated to 1.34 cm w small amount of clustered rounded low signal structures at its terminal in either representing stone or proteinaceous debris or sludge. * ERCP 10/08 showed choledocholithiasis w complete remal by biliary sphincterotomy and balloon extraction. * DW Dr. Gonzalez, plan is now for a cholecystotomy tube placement. Acute hypoxic respiratory failure * Resolved * Developed 10/07 with a pulse ox dropped down to 84 and reported history by nursing respiratory rate of 40. * Chest x-ray performed the same day showed mild central pulmonary vascular congestion. Personal review, shows CHF pattern. Patient did receive a dose of IV furosemide on the . * Echo showed an EF 70% moderate to severe mitral valve stenosis. Acute HFpEF * Echo showed an EF 70% moderate to severe mitral valve stenosis. * Complicated by mitral stenosis. * Did receive a dose of furosemide Mitral valve stenosis * complicates care and recovery * follow up with cardiology as outpt. hypertensive urgency: * Improved * Initially blood pressure was elevated 200/58 * continue metoprolol Chronic conditions: * Diabetes mellitus type 2: Clear liquid. Accu-Chek ACH cover with Humalog sliding scale. Hold oral hypoglycemic agent. * Severe protein calorie malnutrition, chronic: Aviation Safety Technician consult. Ensure supplementation. * CKD stage IV: Last hospitalization for diarrhea, urine retention and MERCEDES: Patient was admitted for 3 days in May 2023. UTI was ruled out. MERCEDES improved. Currently patient denies dysuria or burning micturition but she has history of UTI in the past. BUNs/creatinine 21/1.09, estimated creatinine clearance 26 mL per minute. Usually her creatinine stays 1.0-1.1 at her baseline. MERCEDES ruled out. DVT prophylaxis, high risk: Lovenox 30 mg subcu daily. Living will/advanced directive/end of life care: Full code Charges/Coding Visit Charges Inpatient E&M: 15290 Subs Hosp L2
[2023-10-09] MEDS: Metoprolol Tartrate 50 MG Tablet PO (09:41)
[2023-10-09] MEDS: 0.9% Normal Saline (250mL Bag) 250 ML 15 ML IV ×2 (10:00→13:51)
--- NOTE | 2023-10-09 10:05 | CASEMGMT ---
Social Work SW spoke w/pt and daughter in room, pt and daughter confirmed daughter Aniyah Pelletier is POA. Pt explains that she had four children, her two oldest have and her youngest son has not been in contact w/her for several years. Daughter is not certain where the POA papers are, but will look for them to bring them in. If she cannot find them, pt would like to complete LW/POA while here. SW let them know to ask for the SW if they cannot find the papers and we can help to complete them as time allows. NITIN Rasheed
--- NOTE | 2023-10-09 11:36 | PCM.PN.SRG ---
Subjective Subjective Patient seen and examined during AM rounds. She states that she is feeling well this morning and is pleased to hear that the ERCP was a success. She is eager to discharge home once she is through with all planned interventions. Objective Data Objective Data Vital Signs: Vital Signs Temp Pulse Resp BP Pulse Ox O2 Del Method O2 Flow Rate 98.3 F 85 20 H 126/59 H 96 Room Air 2 10/09/23 09:37 10/09/23 10:58 10/09/23 10:58 10/09/23 09:37 10/09/23 09:37 10/09/23 10:00 10/08/23 20:16 Oxygen Flow Rate (L/min) 2 Oxygen Delivery Method Room Air Weight: 104 lb 4.458 oz Body Mass Index (BMI) 20.3 Intake & Output: Intake and Output for Last 24 Hours 10/07/23 10/08/23 10/09/23 23:59 23:59 23:59 Intake Total 67 / 1150 / 1150 377.25 / 377.25 Output Total 3200 / 3200 2775 / 2775 300 / 300 Balance -1188.33 / -1188.33 -1625 / -1625 77.25 / 77.25 Medical Nutrition Assessment Dietitian: Malnutrition Criteria Met Start: 10/06/23 11:45 Freq: Status: Active Protocol: Document 10/09/23 10:45 AG (Rec: 10/09/23 10:45 AG Desktop) Nutrition Malnutrition Evidence of Malnutrition Exists No Intake Problem Inadequate Oral Intake Etiology related to GI Dysfunction Signs/Symptoms as evidenced by estimated PO intake meeting <50% of estimated energy needs x 3 days Status Active Problem Recommendation Dietitian Recommendations/Changes recommend advance diet as tolerated to CHO controlled; if PO intake at meals fails, recommend liberalize diet to regular and/or add ONS. Lab / Micro Data 10/09/23 06:55 10/09/23 06:55 Labs: Laboratory Results - last 24 hr 10/09/23 06:55: WBC 5.2, RBC 3.08 L, Hgb 8.2 L, Hct 25.9 L, MCV 84.1, MCH 26.6 L, MCHC 31.7 L, RDW Std Deviation 42.5, RDW Coeff of Alanna 14.0, Plt Count 238, MPV 9.7, Immature Gran % (Auto) 0.400, Neut % (Auto) 82.5 H, Lymph % (Auto) 9.4 L, [place] % (Auto) 7.7, Eos % (Auto) 0.0, Baso % (Auto) 0.0, Absolute Neuts (auto) 4.3, Absolute Lymphs (auto) 0.49 L, Nucleated RBC % 0, Sodium 137, Potassium 3.9, Chloride 104, Carbon Dioxide 23.0, Anion Gap 10, BUN 19 H, Creatinine 1.15 H, Estim Creat Clear Calc 24.76, Est GFR (MDRD) Af Amer 57 L, Est GFR (MDRD) Non-Af 47 L, BUN/Creatinine Ratio 16.5, Glucose 318 H, Calcium 9.6, Total Bilirubin 0.70, AST 16, ALT 60 H, Alkaline Phosphatase 137 H, Total Protein 7.6, Albumin 2.4 L, Globulin 5.2 H, Albumin/Globulin Ratio 0.5 L Micro: Microbiology 10/05/23 19:33 Blood Culture (Wb) - Left Wrist Blood Culture - Final Klebsiella pneumoniae sp pneum 10/05/23 19:45 Blood Culture (Wb) - Anticubital Left Blood Culture - Preliminary No growth in 48 hours. 10/05/23 20:15 Urine Catheter - Catheter Urine Culture - Final Meth. resistant Staph. aureus 10/05/23 19:50 Mucosa - Nose SARS-CoV-2, Influenza & RSV (PCR) - Final Radiography Diagnostic Testing: Radiology Impression Echocardiogram 10/08/23 07:46 Interpretation Summary The estimated ejection fraction is 70 %. Unable to assess diastolic dysfunction. Trivial mitral valve insufficiency. Moderate to severe mitral stenosis Ordering Physician: Dung Littlejohn Referring Physician: Claire Sharif Performed By: Rossy Johnson, RDCS, RVT Endo Retro Cholangiopancreatogram 10/08/23 10:50 IMPRESSION: Biliary stent placement. Obstructed distal common bile duct. Electronically Signed: Noman Rangel MD at 13:50 EST , Physical Exam Const oriented x3 and no apparent distress GI GI Narrative: Nondistended, soft, mildly tender to palpation in the right upper quadrant Assessment & Plan Assessment/Plan (1) Common bile duct dilation: (2) Cholecystitis: PLAN: Patient underwent ERCP with intent for cystic duct stenting. Unfortunately occlusion cholangiogram did not identify the cystic duct and GI was unable to perform spyglass. Therefore, patient has had no decompression of the gallbladder and she remains deconditioned from her other issues that I do not believe she is a suitable surgical candidate. Thus, I have recommended we proceed with cholecystostomy tube placement. This procedure is due later this afternoon. Upon completion of this procedure we will look to acclimate both patient and her daughter to the function of this tube and plan for outpatient follow-up/management. I have shared with patient and her daughter that it would be my hope to perform an outpatient cholecystectomy in approximately 1 month's time?provided that she is rehabilitated to a more suitable fitness for surgery. Charges/Coding Visit Charges Inpatient E&M: 62357 Subs Hosp L2
[2023-10-09] MEDS: 0.9% Saline Lock 10 ML Syringe IV (12:51)
--- NOTE | 2023-10-09 13:30 | CT_ITS ---
PROCEDURE: CT GUIDED percutaneous cholecystostomy. DATE: October 09, 2023. INDICATION: Female, 88 years old. Cholecystitis. PHYSICIAN: Noman Rangel M.D. RADIATION DOSAGE (If Supplied By Facility): CTDIvol = ( 9.94 ) mGy, DLP = ( 1554.77 ) mGycm. Individualized dose optimization techniques were utilized. PROCEDURE: The risks, benefits, and alternatives to the procedure were explained to the patient. The specific risk of hemorrhage requiring further treatment or intervention was detailed and accepted. Follow-up instructions were discussed with the patient as well. Written informed consent was obtained. The patient was brought into the CT suite and placed in the supine position. . An appropriate entry site was identified. The overlying skin was prepped and draped in the usual sterile fashion. 1% lidocaine was administered subcutaneously for local anesthesia. Conscious sedation was performed. The patient received 2 mg of Versed and 75 mcg of fentanyl intravenously. Conscious sedation was started at 1:51 PM and terminated at 2:[address] guidance, a percutaneous cholecystostomy was attempted. It was unsuccessful. Following the procedure, there is evidence of a small subcapsular hematoma of the liver. The patient was stable. CT/Abscess/Fistula/Sinus Tract IMPRESSION: Attempted percutaneous cholecystostomy as described. Electronically Signed: Noman Rangel MD at 15:40 EST ,
[2023-10-09] MEDS: Midazolam 2 MG/2 ML Syringe IV ×2 (13:51→14:03)
[2023-10-09] MEDS: fentaNYL 100 MCG/2 ML Ampul IV ×3 (13:53→14:19)
[2023-10-09] MEDS: Lidocaine 2% (20 ml mdv) 20 ML Vial INFILT (14:00)
[2023-10-09] MEDS: Sucralfate 1 GM Tablet PO (16:05)
[2023-10-09] MEDS: Ascorbic Acid 500 MG Tablet PO (16:05)
[2023-10-09] MEDS: Vibegron 75 MG TABLET PO (16:06)
[2023-10-09] MEDS: Iron Polysaccharide Complex 150 MG CAPSULE PO (16:07)
[2023-10-09] MEDS: Pantoprazole Sodium 40 MG Tablet PO ×2 (16:07→21:27)
[2023-10-09] MEDS: Insulin Lispro 100 UNIT/ML INSULN.PEN SC ×2 (16:56→22:46)
[2023-10-09 17:05] LABS: Bedside Glucose 206 mg/dL (74-106)
--- NOTE | 2023-10-09 17:36 | EX.PCM.PN.GI ---
Subjective Subjective Patient underwent ERCP yesterday with stone removal. She is doing quite well. She denies abdominal pain. She denies any nausea, vomiting or diarrhea. She is tolerating a diet. Objective Data Objective Data Vital Signs: Vital Signs Temp Pulse Resp BP Pulse Ox O2 Del Method O2 Flow Rate 97.7 F L 96 18 96/49 L 95 Room Air 2 10/09/23 15:46 10/09/23 15:46 10/09/23 15:46 10/09/23 15:46 10/09/23 15:46 10/09/23 15:46 10/09/23 14:30 Oxygen Flow Rate (L/min) 2 Oxygen Delivery Method Room Air Weight: 104 lb 4.458 oz Body Mass Index (BMI) 20.3 Intake & Output: Intake and Output for Last 24 Hours 10/07/23 10/08/23 10/09/23 23:59 23:59 23:59 Intake Total 67 / 1150 / 1150 791.00 / 791.00 Output Total 3200 / 3200 2775 / 2775 300 / 300 Balance -1188.33 / -1188.33 -1625 / -1625 491.00 / 491.00 Medical Nutrition Assessment Dietitian: Malnutrition Criteria Met Start: 10/06/23 11:45 Freq: Status: Active Protocol: Document 10/09/23 10:45 AG (Rec: 10/09/23 10:45 AG Desktop) Nutrition Malnutrition Evidence of Malnutrition Exists No Intake Problem Inadequate Oral Intake Etiology related to GI Dysfunction Signs/Symptoms as evidenced by estimated PO intake meeting <50% of estimated energy needs x 3 days Status Active Problem Recommendation Dietitian Recommendations/Changes recommend advance diet as tolerated to CHO controlled; if PO intake at meals fails, recommend liberalize diet to regular and/or add ONS. Lab / Micro Data 10/09/23 06:55 10/09/23 06:55 Labs: Laboratory Results - last 24 hr 10/09/23 06:55: WBC 5.2, RBC 3.08 L, Hgb 8.2 L, Hct 25.9 L, MCV 84.1, MCH 26.6 L, MCHC 31.7 L, RDW Std Deviation 42.5, RDW Coeff of Alanna 14.0, Plt Count 238, MPV 9.7, Immature Gran % (Auto) 0.400, Neut % (Auto) 82.5 H, Lymph % (Auto) 9.4 L, [place] % (Auto) 7.7, Eos % (Auto) 0.0, Baso % (Auto) 0.0, Absolute Neuts (auto) 4.3, Absolute Lymphs (auto) 0.49 L, Nucleated RBC % 0, Sodium 137, Potassium 3.9, Chloride 104, Carbon Dioxide 23.0, Anion Gap 10, BUN 19 H, Creatinine 1.15 H, Estim Creat Clear Calc 24.76, Est GFR (MDRD) Af Amer 57 L, Est GFR (MDRD) Non-Af 47 L, BUN/Creatinine Ratio 16.5, Glucose 318 H, Calcium 9.6, Total Bilirubin 0.70, AST 16, ALT 60 H, Alkaline Phosphatase 137 H, Total Protein 7.6, Albumin 2.4 L, Globulin 5.2 H, Albumin/Globulin Ratio 0.5 L 10/09/23 16:47: POC Glucose 206 H Micro: Microbiology 10/05/23 19:33 Blood Culture (Wb) - Left Wrist Blood Culture - Final Klebsiella pneumoniae sp pneum 10/05/23 19:45 Blood Culture (Wb) - Anticubital Left Blood Culture - Preliminary No growth in 48 hours. 10/05/23 20:15 Urine Catheter - Catheter Urine Culture - Final Meth. resistant Staph. aureus 10/05/23 19:50 Mucosa - Nose SARS-CoV-2, Influenza & RSV (PCR) - Final Radiography Diagnostic Testing: Radiology Impression Abscess Drainage 10/09/23 13:30 IMPRESSION: Attempted percutaneous cholecystostomy as described. Electronically Signed: Noman Rangel MD at 15:40 EST , Physical Exam Const oriented x3 and no apparent distress GI GI Narrative: Nondistended, soft, mildly tender to palpation in the right upper quadrant Assessment & Plan Assessment/Plan (1) Common bile duct dilation: (2) Acute cholecystitis with acute cholangitis: PLAN: Plan 88-year-old status post ERCP with stone removal and stent placement. She is active doing very well and LFTs continue to improve. Management of her gallbladder as per primary service and surgery. I will continue to follow. Charges/Coding Visit Charges Inpatient E&M: 01963 Subs Hosp L3
[2023-10-09] MEDS: Tamsulosin HCl 0.4 MG Capsule 0.400000000000000022 MG PO (18:33)
[2023-10-09] MEDS: Atorvastatin Calcium 10 MG Tablet 5 MG PO (21:26)
[2023-10-09] MEDS: Acetaminophen 325 MG Tablet 650 MG PO (21:27)
[2023-10-09] MEDS: Latanoprost 0.005% 1 Bottle 1 DRP EACH EYE (21:27)
[2023-10-09 21:55] LABS: Bedside Glucose 274 mg/dL (74-106)
[2023-10-10] VITALS (11 sets, daily range): BP systolic 94–125; BP diastolic 35–50; PULSE 98–127; RESP 15–20; TEMP 36.4–36.8; O2SAT 95–98; BMI 21.1
[2023-10-10] MEDS: Piperacil/Tazobactam 3.375 GM in 0.9% Normal Saline (50mL MB+) 50 ML IV ×3 (06:03→22:17)
[2023-10-10] MEDS: Sucralfate 1 GM Tablet PO ×3 (06:03→16:52)
[2023-10-10] MEDS: Acetaminophen 325 MG Tablet 650 MG PO ×3 (06:05→19:03)
[2023-10-10] MEDS: Insulin Lispro 100 UNIT/ML INSULN.PEN SC ×3 (06:09→16:52)
[2023-10-10 06:40] LABS: Bedside Glucose 183 mg/dL (74-106)
[2023-10-10] MEDS: Ipratropium/Albuterol Sulfate 3 ML AMPUL.NEB INHALATION ×4 (07:33→23:24)
--- NOTE | 2023-10-10 08:23 | PN.HOSP_ITS ---
Reason for Visit Reason for Visit: Diagnoses Acute cholecystitis (10/05/23) Cholecystitis, unspecified (10/05/23) Other cholangitis (10/05/23) Other specified diseases of biliary tract (10/05/23) Urinary tract infection, site not specified (10/05/23) Subjective Subjective pain post attempted cholecystomy tube attempt. Objective Data Objective Data Vital Signs: Vital Signs Temp Pulse Resp BP Pulse Ox O2 Del Method O2 Flow Rate 36.7 C 98 15 121/47 H 98 Room Air 2 10/10/23 03:32 10/10/23 03:32 10/10/23 03:32 10/10/23 03:32 10/10/23 03:32 10/10/23 04:05 10/09/23 14:30 Oxygen Flow Rate (L/min) 2 Oxygen Delivery Method Room Air Weight: 49.1 kg Body Mass Index (BMI) 21.1 Intake & Output: Intake and Output for Last 24 Hours 10/08/23 10/09/23 10/10/23 23:59 23:59 23:59 Intake Total 1150 / 1150 1391.00 / 1391.00 50 / 50 Output Total 2775 / 2775 1850 / 1850 300 / 300 Balance -1625 / -1625 -459.00 / -459.00 -250 / -250 Medical Nutrition Assessment Dietitian: Malnutrition Criteria Met Start: 10/06/23 11:45 Freq: Status: Active Protocol: Document 10/09/23 10:45 AG (Rec: 10/09/23 10:45 AG Desktop) Nutrition Malnutrition Evidence of Malnutrition Exists No Intake Problem Inadequate Oral Intake Etiology related to GI Dysfunction Signs/Symptoms as evidenced by estimated PO intake meeting <50% of estimated energy needs x 3 days Status Active Problem Recommendation Dietitian Recommendations/Changes recommend advance diet as tolerated to CHO controlled; if PO intake at meals fails, recommend liberalize diet to regular and/or add ONS. Lab / Micro Data 10/10/23 11:30 10/10/23 09:14 Labs: Laboratory Results - last 24 hr 10/09/23 16:47: POC Glucose 206 H 10/09/23 21:36: POC Glucose 274 H 10/10/23 06:09: POC Glucose 183 H Micro: Microbiology 10/05/23 19:33 Blood Culture (Wb) - Left Wrist Blood Culture - Final Klebsiella pneumoniae sp pneum 10/05/23 19:45 Blood Culture (Wb) - Anticubital Left Blood Culture - Preliminary No growth in 48 hours. 10/05/23 20:15 Urine Catheter - Catheter Urine Culture - Final Meth. resistant Staph. aureus 10/05/23 19:50 Mucosa - Nose SARS-CoV-2, Influenza & RSV (PCR) - Final Radiography Diagnostic Testing: Radiology Impression Abscess Drainage 10/09/23 13:30 IMPRESSION: Attempted percutaneous cholecystostomy as described. Electronically Signed: Noman Rangel MD at 15:40 EST , Physical Exam Const alert and no apparent distress HEENT head/scalp atraumatic and moist oral mucous membranes Resp normal respiratory effort, no retractions, no use of accessory muscles and clear to auscultation bilaterally Cardio regular rate, regular rhythm, S1 normal heart sound and S2 normal heart sound Assessment & Plan Assessment/Plan (1) Acute cholecystitis with acute cholangitis: PLAN: Plan Acute choledocholithiasis * Ultrasound shows a gallbladder sludge with mild pericholecystic fluid. No sonographic findings of definitive acute cholecystitis. Dilated common bile duct without identifiable obstructing calculus. * CAT scan showed nonspecific gallbladder distention with wall thickening/edema. Abnormal biliary distention with 14 mm common bile duct. 9 mm hypodense right cortical cystic lesion. * Antibiotics with pip-tazo * Gastroenterology and general surgery on consult. * qSOFA 1, sepsis not present on admission. * 10/06: Discussed with Dr. Gonzalez, general surgery. Patient not a candidate for laparoscopic cholecystectomy at this time as gallbladder currently appears unremarkable. * MRCP: cholecystitis (acute v chronic). Small amount of GB sludge. Small amount of pericholecystic fluid. CBD dilated to 1.34 cm w small amount of clustered rounded low signal structures at its terminal in either representing stone or proteinaceous debris or sludge. * ERCP 10/08 showed choledocholithiasis w complete remal by biliary sphincterotomy and balloon extraction. * Cholecystotomy tube attempted on 10/09. * 10/10: DW Dr. Gonzalez, recommending transfer to tertiary facility. I discussed with Dr. Huntley at . He said the patient did not need to be transferred to their facility with this. Dr. Gonzalez did discuss with Dr. Huntley and patient has since been accepted by [facility]. Patient is also been accepted by [facility]. Will wait to see where the patient is accepted first. Subcapsular hematoma * 2/2 attempted cholecystotomy tube attempt on 10/09. * Monitor. If pain worse Acute blood loss anemia * 2.2 subcapsular hematoma * monitor Acute hypoxic respiratory failure * Resolved * Developed 10/07 with a pulse ox dropped down to 84 and reported history by nursing respiratory rate of 40. * Chest x-ray performed the same day showed mild central pulmonary vascular congestion. Personal review, shows CHF pattern. Patient did receive a dose of IV furosemide on the . * Echo showed an EF 70% moderate to severe mitral valve stenosis. Acute HFpEF * resolved * Echo showed an EF 70% moderate to severe mitral valve stenosis. * Complicated by mitral stenosis. * Did receive a dose of furosemide Mitral valve stenosis * complicates care and recovery * follow up with cardiology as outpt. hypertensive urgency: * Improved * Initially blood pressure was elevated 200/58 * continue metoprolol Chronic conditions: * Diabetes mellitus type 2: Clear liquid. Accu-Chek ACH cover with Humalog sliding scale. Hold oral hypoglycemic agent. * Severe protein calorie malnutrition, chronic: Subject Scientific Research consult. Ensure supplementation. * CKD stage IV: Last hospitalization for diarrhea, urine retention and MERCEDES: Patient was admitted for 3 days in May 2023. UTI was ruled out. MERCEDES improved. Currently patient denies dysuria or burning micturition but she has history of UTI in the past. BUNs/creatinine 21/1.09, estimated creatinine clearance 26 mL per minute. Usually her creatinine stays 1.0-1.1 at her baseline. MERCEDES ruled out. DVT prophylaxis, high risk: Lovenox 30 mg subcu daily. Living will/advanced directive/end of life care: Full code Greater than 60 minutes of which greater than 50% of time was facilitating potential transfers to outside hospitals and providing information. Charges/Coding Visit Charges Inpatient E&M: 74405 [facility] Hosp L3
[2023-10-10] MEDS: 0.9% Saline Lock 10 ML Syringe IV ×2 (09:54→11:30)
[2023-10-10] MEDS: Pantoprazole Sodium 40 MG Tablet PO ×2 (09:54→22:16)
[2023-10-10 10:03] LABS: Absolute Lymphocyte Count 1.09 X10^3/uL (0.83-4.51); Absolute Neutrophil Count 6.1 X10^3/uL (2.0-7.7); Basophil# 0.02 X10^3/uL; Basophil% 0.3 % (0-1); Eosinophil# 0.08 X10^3/uL; Hemoglobin 7.1 g/dL (12.0-15.0); Lymphocyte # 1.09 X10^3/ul (0.83-4.51); Lymphocyte % 13.9 % (19-41); Mean Corp Hgb Conc 30.9 g/dL (32-36); Mean Corpuscular Hgb 26.6 pg (27.0-32.0); Mean Corpuscular Volume 86.1 fL (81-99); Mean Platelet Vol. 9.8 fl (6.2-12.0); Monocyte# 0.49 X10^3/uL; Monocyte% 6.2 % (0-10); NRBC Flagged by Analyzer 0 % (0-5); Neutrophil # 6.14 X10^3/uL (2.7-7.7); Platelet Count 281 K/mm3 (150-450); RBC Distribution Width CV 14.3 % (11.6-14.6); Red Blood Count 2.67 M/mm3 (4.2-5.4); White Blood Count 7.9 K/mm3 (4.4-11.0)
[2023-10-10 10:47] LABS: ALB/GLOB Ratio 0.5 RATIO (0.9-2.4); AST(SGOT) 68 U/L (15-37); Alanine Aminotransfer ALT/SGPT 83 U/L (13-56); Albumin, Serum 2.4 g/dL (3.2-5.0); Alkaline Phosphatase 134 U/L (45-117); Anion Gap 11 (5-15); BUN 22 mg/dL (7-18); BUN/Creat Ratio 15.8 RATIO (10-20); Calcium,Total 9.3 mg/dL (8.5-10.1); Chloride 105 mmol/L (98-107); Creatinine, Serum 1.39 mg/dL (0.55-1.02); EST Glomerular Filtration Rate 38 mL/min (>60); Est Glom Filt Rate - Afr Amer 46 mL/min (>60); Estimated Creatinine Clearance 20.48 ml/min; Globulin 4.9 g/dL (2.2-4.2); Glucose 261 mg/dL (74-106); Potassium 3.2 mmol/L (3.5-5.1); Protein, Total 7.3 g/dL (6.4-8.2); Sodium Level 137 mmol/L (136-145)
[2023-10-10] MEDS: Iron Polysaccharide Complex 150 MG CAPSULE PO (11:38)
[2023-10-10] MEDS: Vibegron 75 MG TABLET PO (11:38)
[2023-10-10] MEDS: Metoprolol Tartrate 50 MG Tablet PO ×2 (11:39→22:17)
[2023-10-10] MEDS: Ascorbic Acid 500 MG Tablet PO (11:39)
[2023-10-10 11:51] LABS: Absolute Lymphocyte Count 1.05 X10^3/uL (0.83-4.51); Absolute Neutrophil Count 6.2 X10^3/uL (2.0-7.7); Basophil# 0.02 X10^3/uL; Basophil% 0.3 % (0-1); Eosinophil# 0.05 X10^3/uL; Eosinophils% 0.6 % (0-5); Hematocrit 22.9 % (37-47); Hemoglobin 7.1 g/dL (12.0-15.0); Lymphocyte # 1.05 X10^3/ul (0.83-4.51); Lymphocyte % 13.6 % (19-41); Mean Corpuscular Hgb 26.6 pg (27.0-32.0); Mean Corpuscular Volume 85.8 fL (81-99); Mean Platelet Vol. 9.9 fl (6.2-12.0); Monocyte# 0.42 X10^3/uL; Monocyte% 5.4 % (0-10); NRBC Flagged by Analyzer 0 % (0-5); Neutrophil # 6.15 X10^3/uL (2.7-7.7); Neutrophil % 79.6 % (47-70); Platelet Count 306 K/mm3 (150-450); RBC Distribution Width CV 14.4 % (11.6-14.6); RBC Distribution Width SD 44.6 fl (35.1-43.9); Red Blood Count 2.67 M/mm3 (4.2-5.4); White Blood Count 7.7 K/mm3 (4.4-11.0)
[2023-10-10 12:01] LABS: Bedside Glucose 322 mg/dL (74-106)
--- NOTE | 2023-10-10 13:38 | PN.SURG_ITS ---
Subjective Subjective Patient seen during a.m. rounds. She is found sitting up in the chair. She states she does have mild soreness at the site of her attempted cholecystostomy yesterday. She expresses some frustration about not being able to go home like she planned today. She is still passing flatus and tolerating a diet without i ssue. Objective Data Objective Data Vital Signs: Vital Signs Temp Pulse Resp BP Pulse Ox O2 Del Method O2 Flow Rate 97.6 F L 127 H 16 125/35 H 96 Room Air 2 10/10/23 11:37 10/10/23 11:39 10/10/23 11:37 10/10/23 11:37 10/10/23 11:37 10/10/23 11:37 10/09/23 14:30 Oxygen Flow Rate (L/min) 2 Oxygen Delivery Method Room Air Weight: 108 lb 3.951 oz Body Mass Index (BMI) 21.1 Intake & Output: Intake and Output for Last 24 Hours 10/08/23 10/09/23 10/10/23 23:59 23:59 23:59 Intake Total 1150 / 1150 1391.00 / 1391.00 120 / 120 Output Total 2775 / 2775 1850 / 1850 300 / 300 Balance -1625 / -1625 -459.00 / -459.00 -180 / -180 Medical Nutrition Assessment Dietitian: Malnutrition Criteria Met Start: 10/06/23 11:45 Freq: Status: Active Protocol: Document 10/09/23 10:45 AG (Rec: 10/09/23 10:45 AG Desktop) Nutrition Malnutrition Evidence of Malnutrition Exists No Intake Problem Inadequate Oral Intake Etiology related to GI Dysfunction Signs/Symptoms as evidenced by estimated PO intake meeting <50% of estimated energy needs x 3 days Status Active Problem Recommendation Dietitian Recommendations/Changes recommend advance diet as tolerated to CHO controlled; if PO intake at meals fails, recommend liberalize diet to regular and/or add ONS. Lab / Micro Data 10/10/23 11:30 10/10/23 09:14 Labs: Laboratory Results - last 24 hr 10/09/23 16:47: POC Glucose 206 H 10/09/23 21:36: POC Glucose 274 H 10/10/23 06:09: POC Glucose 183 H 10/10/23 09:14: WBC 7.9, RBC 2.67 L, Hgb 7.1 L, Hct 23.0 L, MCV 86.1, MCH 26.6 L , MCHC 30.9 L, RDW Std Deviation 45.0 H, RDW Coeff of Alanna 14.3, Plt Count 281, MPV 9.8, Immature Gran % (Auto) 0.600, Neut % (Auto) 78.0 H, Lymph % (Auto) 13.9 L, [place] % (Auto) 6.2, Eos % (Auto) 1.0, Baso % (Auto) 0.3, Absolute Neuts (auto) 6.1, Absolute Lymphs (auto) 1.09, Nucleated RBC % 0, Sodium 137, Potassium 3.2 L , Chloride 105, Carbon Dioxide 21.0, Anion Gap 11, BUN 22 H, Creatinine 1.39 H, Estim Creat Clear Calc 20.48, Est GFR (MDRD) Af Amer 46 L, Est GFR (MDRD) Non-Af 38 L, BUN/Creatinine Ratio 15.8, Glucose 261 H, Calcium 9.3, Total Bilirubin 0.60, AST 68 H, ALT 83 H, Alkaline Phosphatase 134 H, Total Protein 7.3, Albumin 2.4 L, Globulin 4.9 H, Albumin/Globulin Ratio 0.5 L 10/10/23 11:30: WBC 7.7, RBC 2.67 L, Hgb 7.1 L, Hct 22.9 L, MCV 85.8, MCH 26.6 L , MCHC 31.0 L, RDW Std Deviation 44.6 H, RDW Coeff of Alanna 14.4, Plt Count 306, MPV 9.9, Immature Gran % (Auto) 0.500, Neut % (Auto) 79.6 H, Lymph % (Auto) 13.6 L, [place] % (Auto) 5.4, Eos % (Auto) 0.6, Baso % (Auto) 0.3, Absolute Neuts (auto) 6.2, Absolute Lymphs (auto) 1.05, Nucleated RBC % 0 10/10/23 11:33: POC Glucose 322 H Micro: Microbiology 10/05/23 19:33 Blood Culture (Wb) - Left Wrist Blood Culture - Final Klebsiella pneumoniae sp pneum 10/05/23 19:45 Blood Culture (Wb) - Anticubital Left Blood Culture - Preliminary No growth in 48 hours. 10/05/23 20:15 Urine Catheter - Catheter Urine Culture - Final Meth. resistant Staph. aureus 10/05/23 19:50 Mucosa - Nose SARS-CoV-2, Influenza & RSV (PCR) - Final Radiography Diagnostic Testing: Radiology Impression Abscess Drainage 10/09/23 13:30 IMPRESSION: Attempted percutaneous cholecystostomy as described. Electronically Signed: Noman Rangel MD at 15:40 EST , Physical Exam Resp normal respiratory effort GI GI Narrative: Compressive dressing atop a OpSite dressing in the right upper quadrant. There is no sign of bloody drainage. Patient has some predictable tenderness over this area but is not guarding. Assessment & Plan Assessment/Plan (1) Common bile duct dilation: (2) Cholecystitis: PLAN: Patient underwent attempt at cholecystostomy tube placement yesterday with radiology, however, the attempt was unsuccessful and resulted in a subcapsular hematoma. Patient is now further anemic with a hemoglobin of 7, but this does not appear to be stable across serial checks. She is mildly tachycardic but her exam is not consistent with peritonitis. Given this misadventure, I am concerned that any surgical intervention at this time would be further co mplicated by a hematoma and, therefore, recommend we seek transfer with an outside facility for real?time imaging guidance for a cholecystostomy tube. If the procedure is able to be done I am happy to take over management of this tube as an outpatient. For the interim recommend ongoing empiric IV antibiotics. It is noted that patient has positive blood cultures with Klebsiella and these are likely of biliary origin. Additionally would hold on any Lovenox therapy for 48 hours until we can be sure that bleeding is fully stopped from yesterday's drain attempt. Dr. Quan and will be seeing patient this weekend. Hospitalist service has made a call to [facility] and I have reached out to general surgery there to see about a transfer. Will update care team of any significant communication. Charges/Coding Visit Charges Inpatient E&M: 44543 Subs Hosp L2
[2023-10-10] MEDS: Tamsulosin HCl 0.4 MG Capsule 0.400000000000000022 MG PO (16:51)
[2023-10-10 17:13] LABS: Bedside Glucose 220 mg/dL (74-106)
--- NOTE | 2023-10-10 20:42 | DS.PCM_ITS ---
Providers Date of Admission: 10/05/23 Primary Care Physician: Dr. Claire Sharif MD Consultations 10/06/23 02:02 Consult: Gastroenterology Routine Consulting Provider: Alejandra Gastroenterology Reason for Consult: CBD dilated possible CBD stone or passed EMERGENT Consult: No Notified: Yes Date Notified: 10/05/23 Time Notified: 23:57 Method of Notification: Text Consult: General Surgery Routine Consulting Provider: Jeb Gonzalez Reason for Consult: GB sludge and pericholecystic fluid, CBD dilated EMERGENT Consult: No Notified: Yes Date Notified: 10/05/23 Time Notified: 23:57 Method of Notification: ED Physician Initiated Reason For Visit: POSSIBLE PASSED STONE, DILATED CBD Diagnosis Discharge Diagnosis (1) Acute cholecystitis with acute cholangitis: Status: Acute Code(s): K81.0 - Acute cholecystitis; K83.09 - Other cholangitis Plan Acute choledocholithiasis * Ultrasound shows a gallbladder sludge with mild pericholecystic fluid. No sonographic findings of definitive acute cholecystitis. Dilated common bile duct without identifiable obstructing calculus. * CAT scan showed nonspecific gallbladder distention with wall thickening/edema. Abnormal biliary distention with 14 mm common bile duct. 9 mm hypodense right cortical cystic lesion. * Antibiotics with pip-tazo * Gastroenterology and general surgery on consult. * qSOFA 1, sepsis not present on admission. * 10/06: Discussed with Dr. Gonzalez, general surgery. Patient not a candidate for laparoscopic cholecystectomy at this time as gallbladder currently appears unremarkable. * MRCP: cholecystitis (acute v chronic). Small amount of GB sludge. Small amount of pericholecystic fluid. CBD dilated to 1.34 cm w small amount of clustered rounded low signal structures at its terminal in either representing stone or proteinaceous debris or sludge. * ERCP 10/08 showed choledocholithiasis w complete remal by biliary sphincterotomy and balloon extraction. * Cholecystotomy tube attempted on 10/09. * 10/10: DW Dr. Gonzalez, recommending transfer to tertiary facility. I discussed with Dr. Huntley at . He said the patient did not need to be transferred to their facility with this. Dr. Gonzalez did discuss with Dr. Huntley and patient has since been accepted by [facility]. Patient is also been accepted by [facility]. Will wait to see where the patient is accepted first. Dr. Gonzalez did speak with Dr. Huntley at [facility]. Patient was accepted there and transferred. Subcapsular hematoma * 2/2 attempted cholecystotomy tube attempt on 10/09. * Monitor. If pain worse Acute blood loss anemia * 2.2 subcapsular hematoma * monitor Acute hypoxic respiratory failure * Resolved * Developed 10/07 with a pulse ox dropped down to 84 and reported history by nursing respiratory rate of 40. * Chest x-ray performed the same day showed mild central pulmonary vascular congestion. Personal review, shows CHF pattern. Patient did receive a dose of IV furosemide on the . * Echo showed an EF 70% moderate to severe mitral valve stenosis. Acute HFpEF * resolved * Echo showed an EF 70% moderate to severe mitral valve stenosis. * Complicated by mitral stenosis. * Did receive a dose of furosemide Mitral valve stenosis * complicates care and recovery * follow up with cardiology as outpt. hypertensive urgency: * Improved * Initially blood pressure was elevated 200/58 * continue metoprolol Chronic conditions: * Diabetes mellitus type 2: Clear liquid. Accu-Chek ACH cover with Humalog sliding scale. Hold oral hypoglycemic agent. * Severe protein calorie malnutrition, chronic: Deputy Sheriff Lieutenant consult. Ensure supplementation. * CKD stage IV: Last hospitalization for diarrhea, urine retention and MERCEDES: Patient was admitted for 3 days in May 2023. UTI was ruled out. MERCEDES improved. Currently patient denies dysuria or burning micturition but she has history of UTI in the past. BUNs/creatinine 21/1.09, estimated creatinine clearance 26 mL per minute. Usually her creatinine stays 1.0-1.1 at her baseline. MERCEDES ruled out. DVT prophylaxis, high risk: Lovenox 30 mg subcu daily. Living will/advanced directive/end of life care: Full code Greater than 60 minutes of which greater than 50% of time was facilitating potential transfers to outside hospitals and providing information. Medications at Discharge Home Medications latanoprost 0.005 % eye drops 1 drp QHS Check with primary doctor 04/04/17 simvastatin 10 mg tablet (Zocor) 10 mg PO QHS Check with primary doctor 04/04/17 amlodipine 2.5 mg tablet 10 mg PO 2000 Blood Pressure 06/08/23 pantoprazole 40 mg tablet,delayed release 40 mg PO BID Acid Reflux #60 tabs 06/20/23 metoprolol tartrate 50 mg tablet 50 mg PO BID Blood Pressure #0 tabs 06/22/23 ascorbic acid (vitamin C) 500 mg tablet 500 mg PO 1000 30 days #30 tabs 07/04/23 polysaccharide iron complex 150 mg iron capsule (Ferrex) 150 mg PO DAILY 30 days #30 caps 07/04/23 sucralfate 1 gram tablet (Carafate) 1 g PO TID Stomach 30 days #90 tabs 07/04/23 tamsulosin 0.4 mg capsule 0.4 mg PO DAILY@1730 30 days #30 caps 07/04/23 Lactobacillus acidophilus (Acidophilus capsule) 1 cap PO DAILY GI Tract 10/06/23 metformin 500 mg tablet 500 mg PO BID diabetes 10/06/23 vibegron 75 mg tablet (Gemtesa) 75 mg PO DAILY 10/06/23 Hospital Course Summary of Care Provided Minutes Spent on Discharge: 80 Weight / BMI Weight Weight: 49.1 kg Body Mass Index (BMI) 21.1 ABG / Lab / Microbiology Data 10/10/23 11:30 10/10/23 09:14 Laboratory: Laboratory Results - last 24 hr 10/10/23 09:14: WBC 7.9, RBC 2.67 L, Hgb 7.1 L, Hct 23.0 L, MCV 86.1, MCH 26.6 L , MCHC 30.9 L, RDW Std Deviation 45.0 H, RDW Coeff of Alanna 14.3, Plt Count 281, MPV 9.8, Immature Gran % (Auto) 0.600, Neut % (Auto) 78.0 H, Lymph % (Auto) 13.9 L, [facility] % (Auto) 6.2, Eos % (Auto) 1.0, Baso % (Auto) 0.3, Absolute Neuts (auto) 6.1, Absolute Lymphs (auto) 1.09, Nucleated RBC % 0, Sodium 137, Potassium 3.2 L , Chloride 105, Carbon Dioxide 21.0, Anion Gap 11, BUN 22 H, Creatinine 1.39 H, Estim Creat Clear Calc 20.48, Est GFR (MDRD) Af Amer 46 L, Est GFR (MDRD) Non-Af 38 L, BUN/Creatinine Ratio 15.8, Glucose 261 H, Calcium 9.3, Total Bilirubin 0.60, AST 68 H, ALT 83 H, Alkaline Phosphatase 134 H, Total Protein 7.3, Albumin 2.4 L, Globulin 4.9 H, Albumin/Globulin Ratio 0.5 L 10/10/23 11:30: WBC 7.7, RBC 2.67 L, Hgb 7.1 L, Hct 22.9 L, MCV 85.8, MCH 26.6 L , MCHC 31.0 L, RDW Std Deviation 44.6 H, RDW Coeff of Alanna 14.4, Plt Count 306, MPV 9.9, Immature Gran % (Auto) 0.500, Neut % (Auto) 79.6 H, Lymph % (Auto) 13.[address] L, [facility] % (Auto) 5.4, Eos % (Auto) 0.6, Baso % (Auto) 0.3, Absolute Neuts (auto) 6.2, Absolute Lymphs (auto) 1.05, Nucleated RBC % 0 10/10/23 11:33: POC Glucose 322 H 10/10/23 16:50: POC Glucose 220 H 10/10/23 23:49: POC Glucose 282 H Microbiology: Microbiology 10/05/23 19:45 Blood Culture (Wb) - Anticubital Left Blood Culture - Final No growth in 5 days. 10/05/23 19:33 Blood Culture (Wb) - Left Wrist Blood Culture - Final Klebsiella pneumoniae sp pneum 10/05/23 20:15 Urine Catheter - Catheter Urine Culture - Final Meth. resistant Staph. aureus 10/05/23 19:50 Mucosa - Nose SARS-CoV-2, Influenza & RSV (PCR) - Final Meaningful Use Info Meaningful Use Diagnoses (Choose all that apply): None applicable Discharge Plan Admission Admit Date/Time: 10/05/23 23:54 Attending Provider: Dung Littlejohn Primary Care Provider: Claire Sharif Consulting Providers: Jeb Gonzalez; Terence Paredes Instructions Patient Instructions: Sen Del Castillo Drain Tube Dc, Post Op Drain Emptying Steps Discharge Orders/Prescriptions Prescriptions: No Action latanoprost 1 DROP bottle 1 drp Each Eye QHS simvastatin [Zocor] 10 MG tablet 10 mg PO QHS amlodipine 2.5 MG tablet 10 mg PO 1999 metoprolol tartrate 50 mg Tablet 50 mg PO BID Qty: 0 0RF ascorbic acid (vitamin C) 500 mg Tablet 500 mg PO 1000 30 Days Qty: 30 0RF polysaccharide iron complex [Ferrex 150] 150 mg iron Capsule 150 mg PO DAILY 30 Days Qty: 30 0RF tamsulosin 0.4 mg Capsule 0.4 mg PO DAILY@1730 30 Days Qty: 30 0RF sucralfate [Carafate] 1 gram tablet 1 g PO TID 30 Days Qty: 90 0RF Rx Instructions: 1 gram TID for 30 days then take 1 gram BID for 30 days. Gemtesa 75 mg tablet 75 mg PO DAILY Acidophilus Capsule 1 cap PO DAILY metformin 500 mg tablet 500 mg PO BID pantoprazole 40 mg tablet,delayed release (DR/EC) 40 mg PO BID Qty: 60 6RF Referrals / Follow Up: Claire Sharif MD [Primary Care Provider] - Disposition Disposition (needs filled in before D/C Order can be placed): Acute Care Hospital Charges/Coding Visit Charges Inpatient E&M: 91061 Disch Hosp >30min
[2023-10-10] MEDS: Latanoprost 0.005% 1 Bottle 1 DRP EACH EYE (22:16)
[2023-10-10] MEDS: Atorvastatin Calcium 10 MG Tablet 5 MG PO (22:17)
[2023-10-11 00:09] LABS: Bedside Glucose 282 mg/dL (74-106)
--- NOTE | 2023-10-11 00:19 | NURSING ---
Report given to JESUS Hicks at [facility] for pt transfer.
== END 2023-10-11 00:35 | disposition short-term general hospital (02) | DRG 444 ==
LOC: ED 10-06 00:05 → ICU 10-06 01:46 → PCU 10-08 18:23
PROVIDERS: Internal Medicine Gastroenterology; Nurse Practitioner; Surgery; Admitting Provider Internal Medicine; Emergency Provider Emergency Medicine; PCP Internal Medicine
PROC: 0FC98ZZ Extirpation of Matter from Common Bile Duct, Via Natural or Artificial Opening Endoscopic (ICD-10-PCS; CPT 43260; principal; 2023-10-08 11:10)
DX: K80.43 Calculus of bile duct with acute cholecystitis with obstruction (principal); E43 Unspecified severe protein-calorie malnutrition; J96.01 Acute respiratory failure with hypoxia; I50.31 Acute diastolic (congestive) heart failure; D62 Acute posthemorrhagic anemia; N18.4 Chronic kidney disease, stage 4 (severe); I13.0 Hypertensive heart and chronic kidney disease with heart failure and stage 1 through stage 4 chronic kidney disease, or unspecified chronic kidney disease; K91.870 Postprocedural hematoma of a digestive system organ or structure following a digestive system procedure; N39.0 Urinary tract infection, site not specified; Z68.1 Body mass index [BMI] 19.9 or less, adult; E11.22 Type 2 diabetes mellitus with diabetic chronic kidney disease; E78.5 Hyperlipidemia, unspecified; B95.62 Methicillin resistant Staphylococcus aureus infection as the cause of diseases classified elsewhere; I05.0 Rheumatic mitral stenosis; I16.0 Hypertensive urgency; H40.9 Unspecified glaucoma; Z79.2 Long term (current) use of antibiotics; Z79.899 Other long term (current) drug therapy; Z87.891 Personal history of nicotine dependence; Z11.52 Encounter for screening for COVID-19; Z53.09 Procedure and treatment not carried out because of other contraindication; Y83.8 Other surgical procedures as the cause of abnormal reaction of the patient, or of later complication, without mention of misadventure at the time of the procedure; Y92.239 Unspecified place in hospital as the place of occurrence of the external cause
CPT/HCPCS: 20501; 36415; 36600; 51702; 71045; 74176; 74181; 74330; 76000; 76705; 77012; 80053; 81001; 82803; 82962; 83605; 83735; 84100; 85025; 85610; 85730; 87040; 87077; 87086; 87088; 87186; 87631; 93005; 93306; 94640; 94668; 94762; 97110; 97162; 97166; 97530; 97535; 97803; 99156; 99157; 99285; J7030; J7050; J7120; Q9957; A4216; J0330; J1940; J2405

== ENCOUNTER 2023-10-15 22:15 | Inpatient (IN) | payer MEDICARE, OTHER, SELFPAY ==
[2023-10-15 22:32] VITALS: BP 178/61; PULSE 77; RESP 14; TEMP 36.2; O2SAT 97; BMI 18.7
[2023-10-15 23:00] VITALS: PULSE 73; RESP 14; O2SAT 97
[2023-10-15 23:14] VITALS: BP 146/49; PULSE 73
[2023-10-16] MEDS: Smz/Tmp Ds Tablet 1 TABLET PO ×2 (00:22→08:17)
[2023-10-16 05:57] LABS: Absolute Lymphocyte Count 2.04 X10^3/uL (0.83-4.51); Absolute Neutrophil Count 6.5 X10^3/uL (2.0-7.7); Basophil# 0.06 X10^3/uL; Basophil% 0.6 % (0-1); Eosinophil# 0.18 X10^3/uL; Eosinophils% 1.9 % (0-5); Hematocrit 26.7 % (37-47); Hemoglobin 7.9 g/dL (12.0-15.0); Lymphocyte # 2.04 X10^3/ul (0.83-4.51); Lymphocyte % 21.2 % (19-41); Mean Corp Hgb Conc 29.6 g/dL (32-36); Mean Corpuscular Hgb 26.1 pg (27.0-32.0); Mean Corpuscular Volume 88.1 fL (81-99); Mean Platelet Vol. 9.1 fl (6.2-12.0); Monocyte# 0.77 X10^3/uL; NRBC Flagged by Analyzer 0 % (0-5); Neutrophil # 6.51 X10^3/uL (2.7-7.7); Neutrophil % 67.5 % (47-70); Platelet Count 511 K/mm3 (150-450); RBC Distribution Width CV 14.8 % (11.6-14.6); RBC Distribution Width SD 47.2 fl (35.1-43.9); Red Blood Count 3.03 M/mm3 (4.2-5.4); White Blood Count 9.6 K/mm3 (4.4-11.0)
[2023-10-16 06:18] LABS: Bedside Glucose 135 mg/dL (74-106)
[2023-10-16] MEDS: Sucralfate 1 GM Tablet PO ×2 (06:26→17:04)
[2023-10-16 06:38] LABS: Anion Gap 3 (5-15); BUN 12 mg/dL (7-18); BUN/Creat Ratio 9.9 RATIO (10-20); Calcium,Total 9.1 mg/dL (8.5-10.1); Chloride 107 mmol/L (98-107); Creatinine, Serum 1.21 mg/dL (0.55-1.02); EST Glomerular Filtration Rate 45 mL/min (>60); Est Glom Filt Rate - Afr Amer 54 mL/min (>60); Estimated Creatinine Clearance 22.35 ml/min; Glucose 133 mg/dL (74-106); Sodium Level 137 mmol/L (136-145)
--- NOTE | 2023-10-16 07:26 | PCM.HP.STD ---
HPI - General General Date of Admission: 10/15/23 Date of Service: 10/16/23 Chief Complaint: Here for rehabilitation. HPI Narrative VERONICA HUNT, is a 88 Female who presents with followin10/05/2023 [facility] ED nausea, vomiting, fever. UTI, choledocholithiasis. 10/08/2023 ERCP/Stone removal/Sphincterotomy. Blood cultures growing Klebsiella Pneumoniae, Urine culture growing MRSA. 10/09/2023 Misplaced percutaneous cholecystostomy tube per IR. Resulted in subcapsular hematoma. Transfer to [facility]. 10/11/2023 Admit to [facility] from [facility]. Zosyn/Vancomycin, blood cultures x 2, Urinalysis, Urine culture, Keep Gabriel. Plan IR for percutaneous cholecystostomy versus laparoscopic cholecystectomy. 10/13/2023 HIDA c/w acute cholecystitis, on Zosyn. Blood cultures negative to date, Urine culture negative. 10/14/2023 IR planned cholecystostomy tube. RUQ ultrasound negative cholecystitis, cholecystostomy aborted. 10/15/2023 Admit to [facility] with debility, here for rehabilitation, strengthening, prior to discharge home with daughter. [facility] Medical History (Updated 10/16/23 @ 07:[address] Huseyin Verma MD) Diabetes Glaucoma Hyperlipidemia Hypertension Urinary retention Urinary tract infection Home Medications latanoprost 0.005 % eye drops 1 drp QHS Check with primary doctor 04/04/17 [History Last Taken Unknown] simvastatin 10 mg tablet (Zocor) 10 mg PO QHS Check with primary doctor 04/04/17 [History Last Taken 06/21/23] amlodipine 2.5 mg tablet 2.5 mg PO 2000 Blood Pressure 06/08/23 [History Last Taken Unknown] pantoprazole 40 mg tablet,delayed release 40 mg PO BID Acid Reflux #60 tabs 06/20/23 [Rx Last Taken 06/22/23] metoprolol tartrate 50 mg tablet 50 mg PO BID Blood Pressure #0 tabs 06/22/23 [Rx Last Taken 06/22/23] ascorbic acid (vitamin C) 500 mg tablet 500 mg PO 1000 Supplement 30 days #30 tabs 07/04/23 [Rx Last Taken Unknown] polysaccharide iron complex 150 mg iron capsule (Ferrex) 150 mg PO DAILY Supplement 30 days #30 caps 07/04/23 [Rx Last Taken Unknown] sucralfate 1 gram tablet (Carafate) 1 g PO TID Stomach 30 days #90 tabs 07/04/23 [Rx Last Taken Unknown] tamsulosin 0.4 mg capsule 0.4 mg PO DAILY@1730 Bladder 30 days #30 caps 07/04/23 [Rx Last Taken Unknown] Lactobacillus acidophilus (Acidophilus capsule) 1 cap PO DAILY GI Tract 10/06/23 [History Last Taken 10/05/23] metformin 500 mg tablet 500 mg PO BID diabetes 10/06/23 [History Last Taken 10/05/23] vibegron 75 mg tablet (Gemtesa) 75 mg PO DAILY Overactive bladder 10/06/23 [History Last Taken Unknown] sulfamethoxazole 800 mg-trimethoprim 160 mg tablet (Bactrim DS) 1 tab PO Q12H Infection 10/15/23 [History Last Taken 10/15/23 09:05] Allergy/AdvReac Type Severity Reaction Status Date / Time betaxolol [From Betoptic] Allergy Itching Verified 06/08/23 14:18 brimonidine [From Alphagan P] Allergy Itching Verified 06/08/23 14:18 cephalexin [From Keflex] Allergy Rash Verified 06/08/23 14:18 nabumetone [From Relafen] Allergy Rash Verified 06/08/23 14:18 Family History Other Diabetes Heart disease Surgical History (Updated 10/16/23 @ 07:[address] Huseyin Verma MD) History of ERCP Status post laparoscopy with lysis of adhesions Social History household members: family housing: house Smoking Status: Former smoker alcohol intake: never substance use type: does not use ROS Constitutional Constitutional: Denies chills, fever(s) or weight gain ENT HEENT: Denies headache(s), nasal congestion or nasal discharge Cardiovascular Cardiovascular: Denies chest pain or palpitations Respiratory/Chest Respiratory/Chest: Denies cough, excessive phlegm production or shortness of breath with exertion Gastrointestinal Gastrointestinal: Denies abdominal pain, nausea or vomiting Genitourinary Genitourinary: Denies dysuria Musculoskeletal Musculoskeletal: Denies joint pain or joint swelling Integumentary Integumentary: Denies rash or wounds Neurologic Neurologic: Denies focal weakness, numbness or tingling Psychiatric Psychiatric: Denies anxiety, auditory hallucinations, depression, homicidal ideation or suicidal ideation Vital Signs Vital Signs Vital Signs: 10/15/23 22:32 10/15/23 23:14 10/15/23 23:00 Temperature 97.1 F L Temperature Source Temporal Pulse Rate 77 73 73 Pulse Rhythm Regular Pulse Strength Normal (2+) Respiratory Rate 14 14 Respiratory Effort Normal Non-Labored Respiratory Depth Normal Respiratory Pattern Normal Blood Pressure 178/61 H 146/49 H Blood Pressure Mean 100 81 Blood Pressure Source Monitor Monitor Blood Pressure Position Semi-Fowlers Semi-Fowlers Blood Pressure Location Right Arm Right Arm Pulse Ox 97 97 Oxygen Delivery Method Room Air Room Air Weight Weight: 43.227 kg Body Mass Index (BMI) 18.7 Physical Exam Const alert General Appearance: cooperative HEENT normocephalic Eyes PERRL and EOMs intact bilaterally Neck supple, no JVD and no carotid bruits Resp normal respiratory effort, normal air movement and clear to auscultation bilaterally Cardio regular rate and regular rhythm GI normal to inspection, nondistended, normoactive bowel sounds, non-tender and non-distended Extremity normal capillary refill General Extremity: Negative for edema Skin no rashes or lesions noted General Skin Exam: no breakdown Psych affect normal Appearance: appropriate Results Lab / Micro Data 10/16/23 05:36 10/16/23 05:36 Labs: Laboratory Results - last 24 hr 10/16/23 05:36: WBC 9.6, RBC 3.03 L, Hgb 7.9 L, Hct 26.7 L, MCV 88.1, MCH 26.1 L, MCHC 29.6 L, RDW Std Deviation 47.2 H, RDW Coeff of Alanna 14.8 H, Plt Count 511 H, MPV 9.1, Immature Gran % (Auto) 0.800, Neut % (Auto) 67.5, Lymph % (Auto) 21.2, [place] % (Auto) 8.0, Eos % (Auto) 1.9, Baso % (Auto) 0.6, Absolute Neuts (auto) 6.5, Absolute Lymphs (auto) 2.04, Nucleated RBC % 0, Sodium 137, Potassium 4.0, Chloride 107, Carbon Dioxide 27.0, Anion Gap 3 L, BUN 12, Creatinine 1.21 H, Estim Creat Clear Calc 22.35, Est GFR (MDRD) Af Amer 54 L, Est GFR (MDRD) Non-Af 45 L, BUN/Creatinine Ratio 9.9 L, Glucose 133 H, Calcium 9.1 10/16/23 05:41: POC Glucose 135 H Assessment & Plan Assessment/Plan (1) Debility: (2) Acute cholecystitis: (3) Choledocholithiasis: (4) Urinary tract infection: (5) Hypertension: (6) Hyperlipidemia: (7) Glaucoma: (8) GERD (gastroesophageal reflux disease): (9) Iron deficiency anemia: (10) Diabetes: (11) Bacteremia due to Klebsiella pneumoniae: PLAN: Plan 88 year old female with below past medical history hospitalized for urinary tract infection, acute cholecystitis resolved after ERCP/stone removal/sphincterotomy, complicated by K. Pneumoniae bacteremia, admitted to TCU with debility, here for rehabilitation, strengthening, prior to discharge home with daughter. Debility - PT/OT. Pain - Tylenol 1000mg q6 prn pain (1-10). Bowel - senna/colace 1 tablet bid, Magnesium citrate 300ml daily prn. Adult immunization - Administer pneumonia vaccine, covid vaccine, flu vaccine as appropriate. DVT prophylaxis - Hold, anemia. Hypertension - Metoprolol 50mg bid, Amlodipine 2.5mg daily. Vitamin C deficiency - Vitamin C 500mg daily. Hyperlipidemia - Atorvastatin 5mg qhs. GI prophylaxis - Lactobacillus 1 tablet daily. Glaucoma - Latanoprost 1gtt ou qhs. Diabetes Mellitus II - Metformin 500mg bidcm. GERD - Pantoprazole 40mg bid, Sucralfate 1gm bid. UTI - Bactrim DS Q12 thru 10/18/2023. OAB - Gemtasa 75mg daily.
[2023-10-16 08:17] VITALS: BP 186/63; PULSE 94
[2023-10-16] MEDS: metFORMIN HCl 500 MG Tablet PO ×2 (08:17→17:05)
[2023-10-16] MEDS: Pantoprazole Sodium 40 MG Tablet PO ×2 (08:17→20:21)
[2023-10-16] MEDS: Metoprolol Tartrate 50 MG Tablet PO ×2 (08:17→20:20)
[2023-10-16] MEDS: Vibegron 75 MG TABLET PO (08:17)
[2023-10-16] MEDS: Ascorbic Acid 500 MG Tablet PO (08:17)
[2023-10-16] MEDS: Tuberculin,Purif.prot.deriv. 50 TU/ML Vial 0.100000000000000006 ML ID (09:41)
[2023-10-16] MEDS: Iron Polysaccharide Complex 150 MG CAPSULE PO (09:41)
[2023-10-16 11:42] VITALS: BP 136/72; PULSE 82; RESP 16; TEMP 36.4; O2SAT 97
--- NOTE | 2023-10-16 12:47 | CHAPLAIN ---
Type of Pastoral Visit _x__ Initial Visit ___ Follow-up Visit ___ On-call Visit ___ General Patient Visit ___ Spiritual Assessment ___ Family Conference ___ Bereavement ___ Rapid Response ___ Code Blue ___ Other (describe below) Pastoral Care Referral From _x__ Patient _x__ Family ___ Nurse ___ Physician ___ Accounts Payable Coordinator ___ Personal Computer Network Engineer ___ Other (describe below) Sacrament/Intervention _x__ Active listening ___ Anointing ___ Yazdanism ___ Bereavement ___ Communion _x__ Sola exploration ___ ___ Life review _x__ Prayer ___ Reconciliation ___ Sacrament of Sick ___ Supportive presence ___ Wedding ___ Other (describe below) Pastoral Comments patient has been seen multiple times in several admissions; pt has returned from [facility] and is very happy to be in TCU for a short time before going home ; daughter is very pleased with progress and health status of pt at this time; both express thankfulness to this weatherization crew leader for the support today and in the past; overview of current condition given by both; welcoming of presence, prayers, and future visits
[2023-10-16] MEDS: Smz/Tmp Ds Tablet 0.5 TABLET PO (17:05)
[2023-10-16] MEDS: Latanoprost 0.005% 1 Bottle 1 DRP EACH EYE (20:19)
[2023-10-16 20:20] VITALS: BP 126/53; PULSE 91
[2023-10-16] MEDS: Atorvastatin Calcium 10 MG Tablet 5 MG PO (20:20)
[2023-10-16] MEDS: amLODIPine 2.5 MG Tablet PO (20:21)
[2023-10-16 23:00] VITALS: RESP 14
[2023-10-17 05:47] LABS: Hematocrit 24.3 % (37-47); Hemoglobin 7.3 g/dL (12.0-15.0)
[2023-10-17] MEDS: Sucralfate 1 GM Tablet PO ×2 (06:06→16:17)
[2023-10-17 06:40] LABS: Bedside Glucose 121 mg/dL (74-106)
[2023-10-17 06:49] VITALS: RESP 14
[2023-10-17] MEDS: Iron Polysaccharide Complex 150 MG CAPSULE PO (09:00)
[2023-10-17] MEDS: metFORMIN HCl 500 MG Tablet PO ×2 (09:00→16:17)
[2023-10-17] MEDS: Pantoprazole Sodium 40 MG Tablet PO ×2 (09:01→21:07)
[2023-10-17] MEDS: Smz/Tmp Ds Tablet 0.5 TABLET PO ×2 (09:01→16:18)
[2023-10-17] MEDS: Vibegron 75 MG TABLET PO (09:02)
[2023-10-17] MEDS: Ascorbic Acid 500 MG Tablet PO (09:02)
[2023-10-17 09:10] VITALS: BP 121/39; PULSE 85
[2023-10-17] MEDS: Metoprolol Tartrate 50 MG Tablet PO ×2 (09:10→21:07)
--- NOTE | 2023-10-17 09:42 | PHA.CONS_ITS ---
Documented by User: Adam Neal 10/17/23 10:04 TCU RX Drug Regimen Review Subjective/Objective Subjective/Objective: Subjective: TCU admission note. 88 year old female with below past medical history hospitalized for urinary tract infection, acute cholecystitis resolved after ERCP/stone removal/sphincterotomy, complicated by K. Pneumoniae bacteremia, admitted to TCU with debility, here for rehabilitation, strengthening, prior to discharge home with daughter. Objective: Allergies betaxolol [From Betoptic] Allergy (Verified 06/08/23 14:18) Itching brimonidine [From Alphagan P] Allergy (Verified 06/08/23 14:18) Itching cephalexin [From Keflex] Allergy (Verified 06/08/23 14:18) Rash nabumetone [From Relafen] Allergy (Verified 06/08/23 14:18) Rash Current Medications Generic Name Dose Route Start Last Admin Trade Name Freq PRN Reason Stop Dose Admin Acetaminophen 1,000 mg 10/16/23 07:44 Acetaminophen 500 Mg Tablet PO Q6H PRN PRN Pain Score 1-10 Amlodipine Besylate 2.5 mg 10/16/23 20:00 10/16/23 20:21 Amlodipine 2.5 Mg Tablet PO 2.5 mg 2000 JERILYN Administration Protocol Ascorbic Acid 500 mg 10/16/23 10:00 10/17/23 09:02 Ascorbic Acid 500 Mg Tablet PO 500 mg 1000 JERILYN Administration Atorvastatin Calcium 5 mg 10/16/23 22:00 10/16/23 20:20 Atorvastatin Calcium 10 Mg Tablet PO 5 mg QHS JERILYN Administration Lactobacillus Acidophilus 1 tablet 10/16/23 10:00 10/17/23 09:01 Lactobacillus Acidophilus PO 1 tablet DAILY JERILYN Administration Latanoprost 1 drp 10/16/23 22:00 10/16/23 20:19 Latanoprost 0.005% 1 Bottle EACH EYE 1 drp QHS JERILYN Administration Magnesium Citrate 300 ml 10/16/23 07:44 Magnesium Citrate 300 Ml PO DAILY PRN Constipation Metformin HCl 500 mg 10/16/23 08:00 10/17/23 09:00 Metformin Hcl 500 Mg Tablet PO 500 mg BIDCM JERILYN Administration Metoprolol Tartrate 50 mg 10/16/23 10:00 10/17/23 09:10 Metoprolol Tartrate 50 Mg Tablet PO 50 mg BID JERILYN Administration Protocol Pantoprazole Sodium 40 mg 10/16/23 10:00 10/17/23 09:01 Pantoprazole Sodium 40 Mg Tablet PO 40 mg BID JERILYN Administration Polysaccharide Iron Complex 150 mg 10/16/23 10:00 10/17/23 09:00 Iron Polysaccharide Complex 150 Mg Capsule PO 150 mg DAILY JERILYN Administration Senna/Docusate Sodium 1 tablet 10/16/23 10:00 10/17/23 09:03 Senna/Docusate Sodium 1 Tablet PO Not Given BID JERILYN Sucralfate 1 gm 10/16/23 07:00 10/17/23 06:06 Sucralfate 1 Gm Tablet PO 1 gm 0700,1600 JERILYN Administration Trimethoprim/Sulfamethoxazole 0.5 tablet 10/16/23 17:00 10/17/23 09:01 Smz/Tmp Ds Tablet PO 10/18/23 23:55 0.5 tablet BIDCM JERILYN Administration Tuberculin PPD 0.1 ml 10/23/23 10:00 Tuberculin,Purif.Prot.Deriv. 50 Tu/Ml Vial ID 10/23/23 10:01 X1 ONE Problem List (Updated 10/16/23 @ 07:[address] Huseyin Verma MD) Bacteremia due to Klebsiella pneumoniae (Acute) Diabetes (Acute) Iron deficiency anemia (Acute) Urinary tract infection (Acute) Choledocholithiasis (Acute) Acute cholecystitis (Acute) GERD (gastroesophageal reflux disease) (Acute) Glaucoma (Chronic) Hyperlipidemia (Acute) Hypertension (Chronic) Debility (Acute) Vital Signs Temp Pulse Resp BP Pulse Ox O2 Del Method 97.5 F L 85 14 121/39 H 97 Room Air 10/16/23 11:42 10/17/23 09:10 10/17/23 06:49 10/17/23 09:10 10/16/23 11:42 10/17/23 06:49 Oxygen Delivery Method Room Air Weight: 43.227 kg Body Mass Index (BMI) 18.7 Sodium 137 mmol/L (136-145) 10/16/23 05:36 Potassium 4.0 mmol/L (3.5-5.1) 10/16/23 05:36 Chloride 107 mmol/L (98-107) 10/16/23 05:36 Carbon Dioxide 27.0 mmol/L (21.0-32.0) 10/16/23 05:36 Anion Gap 3 (5-15) L 10/16/23 05:36 BUN 12 mg/dL (7-18) 10/16/23 05:36 Creatinine 1.21 mg/dL (0.55-1.02) H 10/16/23 05:36 Est GFR (MDRD) Af Amer 54 mL/min (>60) L 10/16/23 05:36 Est GFR (MDRD) Non-Af 45 mL/min (>60) L 10/16/23 05:36 BUN/Creatinine Ratio 9.9 RATIO (10-20) L 10/16/23 05:36 Glucose 133 mg/dL (74-106) H 10/16/23 05:36 Assessment/Plan: 1. Pain: acetaminophen 1000 mg PO Q6H PRN pain. The patient has not required any PRN doses of acetaminophen so far this admission. Please continue to monitor PRN medication usage, pain scores, and LFTs (AST/ALT = 68/83 U/L on 10/10/23). 2. Bowel: senna/docusate 1 tablet PO BID, magnesium citrate 300 mL PO daily PRN constipation. The patient has not required any PRN doses of magnesium citrate so far this admission. The patient's last documented bowel movement was 10/16/23. Please continue to monitor for bowel movements, PRN medication usage, diarrhea and constipation. 3. UTI: sulfamethoxazole/trimethoprim 800/160 1/2 tablet PO BID through 10/18/23. Please continue to monitor for s/s of infection such as fever, chills, dysuria, frequency, WBC count (WBC = 9.6 K/mm3 on 10/16/23), renal function (serum creatinine = 1.21 mg/dL with creatinine clearance ~ 22.3 mL/min on 10/16/23), LFTs (AST/ALT = 68/83 U/L on 10/10/23), sodium levels (Na = 137 mmol/L on 10/16/23), and for diarrhea that could indicate clostridium difficile infection. 4. Hypertension: metoprolol tartrate 50 mg PO BID, amlodipine 2.5 mg PO daily. Please continue to monitor blood pressures (recent range = 94-186/35-72 mmHg), heart rates (82-120 beats/min), for lower extremity edema and fatigue. 5. Diabetes Mellitus II: metformin 500 mg PO BID with meals. Please continue to monitor blood glucose levels (recent range = 121-322 mg/dL), hemoglobin A1C leve ls (A1C = 6.6% on 06/13/23), vitamin B12 levels (no recent vitamin B12 level documented), renal function (serum creatinine = 1.21 mg/dL with eGFR = 45 mL/min on 10/16/23), and for GI distress with metformin administration. Please consider ordering a vitamin B12 level if clinically indicated to assess for depletion due to metformin therapy. 6. Hyperlipidemia: atorvastatin 5 mg PO QHS. Please continue to monitor LFTs (AST/ALT = 68/83 U/L on 10/10/23), and lipid levels (no recent lipid levels documented). Please consider ordering lipid levels to assess hyperlipidemia and atorvastatin therapy if clinically indicated. 7. GERD: pantoprazole 40 mg PO BID, sucralfate 1 gram PO BID. Please continue to monitor for s/s of GERD, for diarrhea that could indicate clostridium difficile infection, for constipation, and for s/s of bone resorption issues including fractures. 8. Overactive bladder: vibegron 75 mg PO daily. Please continue to monitor for bladder spasms, diarrhea, and headache. 9. Vitamin C deficiency: ascorbic acid 500 mg PO daily. Please continue to monitor for s/s of vitamin C deficiency and renal stones. 10. Iron deficiency anemia: iron polysaccharide 150 mg PO daily. Please continue to monitor hemoglobin levels (Hgb = 7.3 g/dL on 10/17/23), iron levels (iron = 10 ug/dL on 06/08/23), and for GI distress with iron administration. 11. GI prophylaxis: lactobacillus 1 tablet PO daily. Please continue to monitor for GI distress and diarrhea. 12. Glaucoma: Latanoprost 1 drop in each eye at bedtime. Please continue to monitor eye health, hyperemia, eye irritation, and eye itching. Assessment/Plan for indications treated with psychotropic medications: NA Medical chart and medication regimen reviewed. The following medication irregularities or issues were identified: 1. Diabetes Mellitus II: metformin 500 mg PO BID with meals. Please consider ordering a vitamin B12 level if clinically indicated to assess for depletion due to metformin therapy. 2. Hyperlipidemia: atorvastatin 5 mg PO QHS. Please consider ordering lipid levels to assess hyperlipidemia and atorvastatin therapy if clinically indicated. Date Date of Note:: 10/17/23 Documented by User: Dr. Huseyin Verma MD 10/17/23 12:30 TCU RX Drug Regimen Review Provider Comments Provider responsibility Provider Comments to Recommendations by Pharmacy: Agree
--- NOTE | 2023-10-17 10:07 | NURSING ---
Laborer Pipelines Note; Activity Asset: Irina Foster has returned to [facility] for more therapy. She remains independent in her choice of daily activities such as, reading, tv, word puzzles and family visits. She welcomes visits from the metal alloy scientist and therapy dog when available. She stated her family will bring in items she may need from home. Staff will remind her of weekly activities and respect her right to say no.
--- NOTE | 2023-10-17 10:39 | CASEMGMT ---
Social Work Met with patient to complete initial assessment. Pt known to this worker from previous stay. Verified contacts. Patient wishes to be DNR-CCA, no intubation. Nursing notified. Pt has DPOA on file, but not HCPOA or Living Will, and requesting dtr provide those copies. SW educated to Medicare benefit and copay coverage. Pt's goal is to return home with dtr who can provide 24/7 care. SW will continue to follow for DC planning. ANTONETTE RickettsW
[2023-10-17 16:00] VITALS: BP 124/73; PULSE 87; RESP 16; TEMP 36.2; O2SAT 98
--- NOTE | 2023-10-17 20:15 | NURSING ---
DNR papers were signed by Dr Verma today but the patient talked to this nurse with dtr present in room and would like to stay full code at this time. Dr Verma will be notified
--- NOTE | 2023-10-17 20:31 | NURSING ---
Dr. Verma notified of code status change.
[2023-10-17 21:07] VITALS: BP 133/51; PULSE 88
[2023-10-17] MEDS: amLODIPine 2.5 MG Tablet PO (21:07)
[2023-10-17] MEDS: Senna/Docusate Sodium 1 Tablet PO (21:07)
[2023-10-17] MEDS: Atorvastatin Calcium 10 MG Tablet 5 MG PO (21:07)
[2023-10-17] MEDS: Latanoprost 0.005% 1 Bottle 1 DRP EACH EYE (21:07)
[2023-10-18] MEDS: Sucralfate 1 GM Tablet PO ×2 (06:08→15:36)
[2023-10-18 06:27] LABS: Bedside Glucose 134 mg/dL (74-106)
[2023-10-18 08:34] LABS: Cholesterol 126 mg/dL (200); High Density Lipoprotein 29 mg/dL; Triglycerides 267 mg/dL; Very Low Density Lipoprotein 53 mg/dL (5-40)
[2023-10-18 09:20] VITALS: BP 122/37; PULSE 88; RESP 16; TEMP 36.7; O2SAT 97
[2023-10-18] MEDS: metFORMIN HCl 500 MG Tablet PO ×2 (09:23→18:04)
[2023-10-18] MEDS: Smz/Tmp Ds Tablet 0.5 TABLET PO ×2 (09:23→18:04)
[2023-10-18 09:24] VITALS: PULSE 88
[2023-10-18] MEDS: Metoprolol Tartrate 50 MG Tablet PO ×2 (09:24→21:14)
[2023-10-18] MEDS: Vibegron 75 MG TABLET PO (09:24)
[2023-10-18] MEDS: Iron Polysaccharide Complex 150 MG CAPSULE PO (09:24)
[2023-10-18] MEDS: Ascorbic Acid 500 MG Tablet PO (09:25)
[2023-10-18] MEDS: Pantoprazole Sodium 40 MG Tablet PO ×2 (09:25→21:14)
[2023-10-18 20:45] VITALS: PULSE 82; RESP 16; O2SAT 98
[2023-10-18 21:14] VITALS: BP 141/52; PULSE 86
[2023-10-18] MEDS: Latanoprost 0.005% 1 Bottle 1 DRP EACH EYE (21:14)
[2023-10-18] MEDS: amLODIPine 2.5 MG Tablet PO (21:15)
[2023-10-18] MEDS: Atorvastatin Calcium 10 MG Tablet 5 MG PO (21:15)
[2023-10-19] MEDS: Sucralfate 1 GM Tablet PO ×2 (06:04→16:36)
[2023-10-19 06:17] LABS: Bedside Glucose 115 mg/dL (74-106)
[2023-10-19 07:50] VITALS: BP 166/46; PULSE 87; RESP 17; TEMP 36.4; O2SAT 99
[2023-10-19] MEDS: metFORMIN HCl 500 MG Tablet PO ×2 (07:53→17:49)
[2023-10-19 07:54] VITALS: PULSE 87
[2023-10-19] MEDS: Metoprolol Tartrate 50 MG Tablet PO ×2 (07:54→21:06)
[2023-10-19] MEDS: Iron Polysaccharide Complex 150 MG CAPSULE PO (07:54)
[2023-10-19] MEDS: Vibegron 75 MG TABLET PO (07:54)
[2023-10-19] MEDS: Pantoprazole Sodium 40 MG Tablet PO ×2 (07:54→21:06)
[2023-10-19] MEDS: Ascorbic Acid 500 MG Tablet PO (07:54)
[2023-10-19] MEDS: Latanoprost 0.005% 1 Bottle 1 DRP EACH EYE (21:05)
[2023-10-19 21:06] VITALS: BP 145/54; PULSE 84
[2023-10-19] MEDS: amLODIPine 2.5 MG Tablet PO (21:06)
[2023-10-19] MEDS: Atorvastatin Calcium 10 MG Tablet 5 MG PO (21:06)
--- NOTE | 2023-10-19 21:15 | NURSING ---
Telephone order received per Dr. Veram and read back to change Senna-S to 1 tablet po BID PRN constipation per pt request.
[2023-10-20 06:02] LABS: Hematocrit 24.1 % (37-47); Hemoglobin 7.2 g/dL (12.0-15.0)
[2023-10-20] MEDS: Sucralfate 1 GM Tablet PO ×2 (06:09→16:01)
[2023-10-20 06:10] LABS: Bedside Glucose 131 mg/dL (74-106)
[2023-10-20] MEDS: Iron Polysaccharide Complex 150 MG CAPSULE PO (08:11)
[2023-10-20] MEDS: metFORMIN HCl 500 MG Tablet PO ×2 (08:11→16:02)
[2023-10-20] MEDS: Ascorbic Acid 500 MG Tablet PO (08:12)
[2023-10-20] MEDS: Vibegron 75 MG TABLET PO (08:12)
[2023-10-20] MEDS: Pantoprazole Sodium 40 MG Tablet PO ×2 (08:12→20:04)
[2023-10-20 08:15] VITALS: BP 142/44; PULSE 84
[2023-10-20] MEDS: Metoprolol Tartrate 50 MG Tablet PO ×2 (08:15→20:03)
[2023-10-20 08:29] LABS: Vitamin B12 171 pg/mL (211-911)
--- NOTE | 2023-10-20 10:34 | NURSING ---
Offered covid vaccine, VIS provided. Patient refuses at this time.
--- NOTE | 2023-10-20 13:08 | NURSING ---
NO for blood transfusion and occult stool for low Hgb. Patient made aware and to receive blood transfusion on 10/21/23 at 0815. Stool sent to lab this AM.
[2023-10-20] MEDS: amLODIPine 2.5 MG Tablet PO (20:02)
[2023-10-20 20:03] VITALS: BP 154/60; PULSE 88
[2023-10-20] MEDS: Atorvastatin Calcium 10 MG Tablet 5 MG PO (20:03)
[2023-10-20] MEDS: Latanoprost 0.005% 1 Bottle 1 DRP EACH EYE (20:04)
[2023-10-20 20:09] VITALS: BP 154/60; PULSE 88
[2023-10-20 21:00] VITALS: RESP 16
[2023-10-21] MEDS: Sucralfate 1 GM Tablet PO ×2 (06:04→16:46)
[2023-10-21 06:05] VITALS: RESP 14
[2023-10-21 06:20] LABS: Bedside Glucose 126 mg/dL (74-106)
[2023-10-21] MEDS: Vibegron 75 MG TABLET PO (07:42)
[2023-10-21] MEDS: Iron Polysaccharide Complex 150 MG CAPSULE PO (07:42)
[2023-10-21] MEDS: metFORMIN HCl 500 MG Tablet PO ×2 (07:42→16:46)
[2023-10-21 07:43] VITALS: BP 167/42; PULSE 91
[2023-10-21] MEDS: Metoprolol Tartrate 50 MG Tablet PO ×2 (07:43→20:41)
[2023-10-21] MEDS: Ascorbic Acid 500 MG Tablet PO (07:43)
[2023-10-21] MEDS: Pantoprazole Sodium 40 MG Tablet PO ×2 (07:43→20:42)
[2023-10-21 09:19] VITALS: BMI 19.2
[2023-10-21 15:51] VITALS: BP 154/57; PULSE 87; RESP 16; TEMP 36.7; O2SAT 99
--- NOTE | 2023-10-21 16:59 | CASEMGMT ---
Social Work BIMS () and PHQ-2 () completed for MDS assessment. Karina Alcocer MSW [employer]
[2023-10-21 20:11] VITALS: BP 148/61; PULSE 87; RESP 20; TEMP 36.9; O2SAT 96
[2023-10-21] MEDS: amLODIPine 2.5 MG Tablet PO (20:40)
[2023-10-21] MEDS: Atorvastatin Calcium 10 MG Tablet 5 MG PO (20:40)
[2023-10-21] MEDS: Latanoprost 0.005% 1 Bottle 1 DRP EACH EYE (20:40)
[2023-10-21 20:41] VITALS: BP 148/61; PULSE 87
[2023-10-22 05:59] LABS: Hematocrit 40.5 % (37-47); Hemoglobin 12.9 g/dL (12.0-15.0)
[2023-10-22] MEDS: Sucralfate 1 GM Tablet PO ×2 (06:19→16:11)
[2023-10-22 08:32] VITALS: BP 104/44; PULSE 86; RESP 6; TEMP 36.6; O2SAT 97
[2023-10-22] MEDS: Iron Polysaccharide Complex 150 MG CAPSULE PO (08:35)
[2023-10-22] MEDS: metFORMIN HCl 500 MG Tablet PO ×2 (08:35→16:11)
[2023-10-22] MEDS: Pantoprazole Sodium 40 MG Tablet PO ×2 (08:36→21:25)
[2023-10-22] MEDS: Vibegron 75 MG TABLET PO (08:36)
[2023-10-22] MEDS: Ascorbic Acid 500 MG Tablet PO (08:36)
--- NOTE | 2023-10-22 09:15 | NURSING ---
Virtual Customer Assistant Note; MDS for 10/22/2023 Complete
[2023-10-22 09:45] LABS: Bedside Glucose 145 mg/dL (74-106)
[2023-10-22 10:25] VITALS: BP 146/39; PULSE 84
[2023-10-22] MEDS: Metoprolol Tartrate 50 MG Tablet PO ×2 (10:25→21:25)
--- NOTE | 2023-10-22 11:56 | CASEMGMT ---
Social Work IDT met with patient and daughter for care plan meeting. Discussed patient's progress in PT/OT/SN. Educated to Medicare benefit. Pt is Basilio and ready to DC. SW offered DC 3/2, pt and dtr agreeable. Pt denied HHC and OP therapy. No DME needs. Dtr to transport. Plan: DC home with dtr 3/2, no needs ANTONETTE RickettsW
[2023-10-22 16:13] VITALS: PULSE 81; RESP 16; O2SAT 99
--- NOTE | 2023-10-22 20:03 | DS.PCM_ITS ---
Providers Date of Admission: 10/15/23 Primary Care Physician: Dr. Claire Sharif MD Reason For Visit: ACUTE CHOLECYSTITIS Diagnosis Discharge Diagnosis (1) Debility: Status: Resolved Code(s): R53.81 - Other malaise (2) Acute cholecystitis: Status: Acute Code(s): K81.0 - Acute cholecystitis (3) Choledocholithiasis: Status: Acute Code(s): K80.50 - Calculus of bile duct without cholangitis or cholecystitis without obstruction (4) Urinary tract infection: Status: Acute Code(s): N39.0 - Urinary tract infection, site not specified (5) Hypertension: Status: Inactive Code(s): I10 - Essential (primary) hypertension (6) Hyperlipidemia: Status: Inactive Code(s): E78.5 - Hyperlipidemia, unspecified (7) Glaucoma: Status: Inactive Code(s): H40.9 - Unspecified glaucoma (8) GERD (gastroesophageal reflux disease): Status: Inactive Code(s): K21.9 - Gastro-esophageal reflux disease without esophagitis (9) Iron deficiency anemia: Status: Acute Code(s): D50.9 - Iron deficiency anemia, unspecified (10) Diabetes: Status: Acute Code(s): E11.9 - Type 2 diabetes mellitus without complications (11) Bacteremia due to Klebsiella pneumoniae: Status: Acute Code(s): R78.81 - Bacteremia; B96.1 - Klebsiella pneumoniae [K. pneumoniae] as the cause of diseases classified elsewhere Plan 88 year old female with below past medical history hospitalized for urinary tract infection, acute cholecystitis resolved after ERCP/stone removal/sphincterotomy, complicated by K. Pneumoniae bacteremia, admitted to TCU with debility, here for rehabilitation, strengthening, prior to discharge home with daughter. * Debility - PT/OT. * Pain - Tylenol 1000mg q6 prn pain (1-10). * Bowel - senna/colace 1 tablet bid, Magnesium citrate 300ml daily prn. * Adult immunization - Administer pneumonia vaccine, covid vaccine, flu vaccine as appropriate. * DVT prophylaxis - Hold, anemia. * Hypertension - Metoprolol 50mg bid, Amlodipine 2.5mg daily. * Vitamin C deficiency - Vitamin C 500mg daily. * Hyperlipidemia - Atorvastatin 5mg qhs. * GI prophylaxis - Lactobacillus 1 tablet daily. * Glaucoma - Latanoprost 1gtt ou qhs. * Diabetes Mellitus II - Metformin 500mg bidcm. * GERD - Pantoprazole 40mg bid, Sucralfate 1gm bid. * UTI - Bactrim DS Q12 thru 10/18/2023. * OAB - Gemtasa 75mg daily. Medications at Discharge Home Medications latanoprost 0.005 % eye drops 1 drp QHS Check with primary doctor 04/04/17 simvastatin 10 mg tablet (Zocor) 10 mg PO QHS Check with primary doctor 04/04/17 amlodipine 2.5 mg tablet 2.5 mg PO 2000 Blood Pressure 06/08/23 metoprolol tartrate 50 mg tablet 50 mg PO BID Blood Pressure #0 tabs 06/22/23 ascorbic acid (vitamin C) 500 mg tablet 500 mg PO 1000 Supplement 30 days #30 tabs 07/04/23 Lactobacillus acidophilus (Acidophilus capsule) 1 cap PO DAILY GI Tract 10/06/23 vibegron 75 mg tablet (Gemtesa) 75 mg PO DAILY Overactive bladder 10/06/23 metformin 500 mg tablet 500 mg PO BIDCM 30 days #60 tabs 10/22/23 pantoprazole 40 mg tablet,delayed release 40 mg PO BID 30 days #60 tabs 10/22/23 polysaccharide iron complex 150 mg iron capsule (Ferrex) 150 mg PO DAILY 30 days #30 caps 10/22/23 sucralfate 1 gram tablet 1 g PO 0700,1600 30 days #60 tabs 10/22/23 Hospital Course Operations None Procedures None Summary of Care Provided Minutes Spent on Discharge: 35 Hospital Course: 88 year old female with below past medical history hospitalized for urinary tract infection, acute cholecystitis resolved after ERCP/stone removal/sphincterotomy, complicated by K. Pneumoniae bacteremia, admitted to TCU with debility, here for rehabilitation, strengthening, prior to discharge home with daughter. Discharge home with daughter 10/25/2023, No needs. Physical Exam Const alert General Appearance: cooperative HEENT normocephalic Eyes PERRL and EOMs intact bilaterally Neck supple, no JVD and no carotid bruits Resp normal respiratory effort, normal air movement and clear to auscultation bilaterally Cardio regular rate and regular rhythm GI normal to inspection, nondistended, normoactive bowel sounds, non-tender and non-distended Extremity normal capillary refill General Extremity: Negative for edema Skin no rashes or lesions noted General Skin Exam: no breakdown Psych affect normal Appearance: appropriate Medical Records Data Medical Nutrition Assessment Dietitian: Malnutrition Criteria Met Start: 10/16/23 09:31 Freq: Status: Active Protocol: Document 10/16/23 09:31 (Rec: 10/16/23 09:32 [id number]) Nutrition Malnutrition Evidence of Malnutrition Exists Yes Malnutrition (moderate): Acute Illness/Injury Evidenced By Suboptimal Energy Intake ( Moderate),Weight Loss ( Moderate) Clinical Problem Acute Disease or Injury Related Malnutrition Etiology moderate, acute malnutrition related to inadequate energy intake Signs/Symptoms as evidenced by unintentional 1.7% wt loss x 1 week, estimated PO intake meeting < 75% of estimated energy needs x 1 week Status Active Problem Recommendation Dietitian Recommendations/Changes continue regular diet given evidence of acute malnutrition ; will add 120mL Glucerna ONS TID w/ meals. Will monitor wt, labs, PO intake and adjust diet/ONS as indicated. Weight / BMI Weight Weight: 44.407 kg Body Mass Index (BMI) 19.2 ABG / Lab / Microbiology Data 10/22/23 05:41 10/16/23 05:36 Laboratory: Laboratory Results - last 24 hr 10/22/23 05:41: Hgb 12.9, Hct 40.5 10/22/23 05:45: POC Glucose 145 H Microbiology: Microbiology 10/20/23 10:00 Stool Stool Occult Blood (MIRYAM) - Final D/C Instructions Discharge Diet: No restrictions Discharge Activity: Return to Normal Activity, May Shower and Use Walker Weight Bearing Status: Weight bearing as tolerated Call your doctor if you observe: Fever of 101 or Higher, Inability to urinate, Inability to have a bowel movement, Shortness of breath, Dizziness, Fainting spells, Swelling in the ankles, Chest pain and Uncontrolled pain Additional Instructions: Discharge home with daughter 10/25/2023, No needs. Meaningful Use Info Meaningful Use Diagnoses (Choose all that apply): None applicable Discharge Plan Admission Admit Date/Time: 10/15/23 22:15 Primary Reason for Your Visit: Debility. Attending Provider: Huseyin Verma Chi Primary Care Provider: Claire Sharif Instructions Additional Instructions / Restrictions: Discharge home with daughter 10/25/2023, No needs. Discharge Orders/Prescriptions Prescriptions: New metformin 500 mg Tablet 500 mg PO BIDCM 30 Days Qty: 60 0RF sucralfate 1 gram Tablet 1 g PO 0700,1600 30 Days Qty: 60 0RF polysaccharide iron complex [Ferrex 150] 150 mg iron Capsule 150 mg PO DAILY 30 Days Qty: 30 0RF pantoprazole 40 mg Tablet,Delayed Release (Dr/Ec) 40 mg PO BID 30 Days Qty: 60 0RF Continued latanoprost 1 DROP bottle 1 drp Each Eye QHS simvastatin [Zocor] 10 MG tablet 10 mg PO QHS amlodipine 2.5 MG tablet 2.5 mg PO 2000 metoprolol tartrate 50 mg Tablet 50 mg PO BID Qty: 0 0RF ascorbic acid (vitamin C) 500 mg Tablet 500 mg PO 1000 30 Days Qty: 30 0RF Gemtesa 75 mg tablet 75 mg PO DAILY Acidophilus Capsule 1 cap PO DAILY Discontinued polysaccharide iron complex [Ferrex 150] 150 mg iron Capsule 150 mg PO DAILY 30 Days Qty: 30 0RF Hold Instructions: Order Changed tamsulosin 0.4 mg Capsule 0.4 mg PO DAILY@1730 30 Days Qty: 30 0RF Hold Instructions: Order Changed sucralfate [Carafate] 1 gram tablet 1 g PO TID 30 Days Qty: 90 0RF Rx Instructions: 1 gram TID for 30 days then take 1 gram BID for 30 days. metformin 500 mg tablet 500 mg PO BID sulfamethoxazole-trimethoprim [Bactrim DS] 800-160 mg tablet 1 tab PO Q12H Rx Instructions: Take 1 tablet PO every 12 hours for 4 days pantoprazole 40 mg tablet,delayed release (DR/EC) 40 mg PO BID Qty: 60 6RF Referrals / Follow Up: Claire Sharif MD [Primary Care Provider] - 10/29/23 9:20 am Disposition Disposition (needs filled in before D/C Order can be placed): Home, Self Care
[2023-10-22] MEDS: Atorvastatin Calcium 10 MG Tablet 5 MG PO (21:24)
[2023-10-22 21:25] VITALS: BP 136/54; PULSE 80
[2023-10-22] MEDS: amLODIPine 2.5 MG Tablet PO (21:25)
[2023-10-22] MEDS: Latanoprost 0.005% 1 Bottle 1 DRP EACH EYE (21:26)
[2023-10-23] MEDS: Sucralfate 1 GM Tablet PO ×2 (06:05→17:06)
[2023-10-23 06:14] LABS: Bedside Glucose 145 mg/dL (74-106)
[2023-10-23 06:50] LABS: Absolute Lymphocyte Count 1.71 X10^3/uL (0.83-4.51); Absolute Neutrophil Count 5.3 X10^3/uL (2.0-7.7); Basophil# 0.08 X10^3/uL; Eosinophil# 0.09 X10^3/uL; Eosinophils% 1.1 % (0-5); Hematocrit 38.4 % (37-47); Hemoglobin 12.1 g/dL (12.0-15.0); Lymphocyte # 1.71 X10^3/ul (0.83-4.51); Lymphocyte % 21.5 % (19-41); Mean Corp Hgb Conc 31.5 g/dL (32-36); Mean Corpuscular Hgb 28.7 pg (27.0-32.0); Mean Corpuscular Volume 91.2 fL (81-99); Mean Platelet Vol. 9.6 fl (6.2-12.0); Monocyte# 0.77 X10^3/uL; Monocyte% 9.7 % (0-10); NRBC Flagged by Analyzer 0 % (0-5); Neutrophil # 5.28 X10^3/uL (2.7-7.7); Neutrophil % 66.2 % (47-70); Platelet Count 422 K/mm3 (150-450); RBC Distribution Width CV 16.4 % (11.6-14.6); RBC Distribution Width SD 54.3 fl (35.1-43.9); Red Blood Count 4.21 M/mm3 (4.2-5.4)
[2023-10-23 06:57] LABS: Anion Gap 6 (5-15); BUN 48 mg/dL (7-18); BUN/Creat Ratio 35.3 RATIO (10-20); Calcium,Total 9.3 mg/dL (8.5-10.1); Chloride 106 mmol/L (98-107); Creatinine, Serum 1.36 mg/dL (0.55-1.02); EST Glomerular Filtration Rate 39 mL/min (>60); Est Glom Filt Rate - Afr Amer 47 mL/min (>60); Estimated Creatinine Clearance 20.43 ml/min; Glucose 149 mg/dL (74-106); Potassium 4.9 mmol/L (3.5-5.1); Sodium Level 136 mmol/L (136-145)
[2023-10-23] MEDS: metFORMIN HCl 500 MG Tablet PO ×2 (08:53→17:06)
[2023-10-23 08:54] VITALS: BP 150/51; PULSE 85
[2023-10-23] MEDS: Iron Polysaccharide Complex 150 MG CAPSULE PO (08:54)
[2023-10-23] MEDS: Pantoprazole Sodium 40 MG Tablet PO ×2 (08:54→20:53)
[2023-10-23] MEDS: Metoprolol Tartrate 50 MG Tablet PO ×2 (08:54→20:52)
[2023-10-23] MEDS: Vibegron 75 MG TABLET PO (08:54)
[2023-10-23] MEDS: Ascorbic Acid 500 MG Tablet PO (08:54)
[2023-10-23 13:09] VITALS: BP 140/42; PULSE 69; RESP 16; TEMP 35.7; O2SAT 97
[2023-10-23 20:52] VITALS: BP 155/47; PULSE 86
[2023-10-23] MEDS: Latanoprost 0.005% 1 Bottle 1 DRP EACH EYE (20:52)
[2023-10-23] MEDS: amLODIPine 2.5 MG Tablet PO (20:53)
[2023-10-23] MEDS: Atorvastatin Calcium 10 MG Tablet 5 MG PO (20:53)
[2023-10-24] MEDS: Sucralfate 1 GM Tablet PO ×2 (05:54→16:23)
[2023-10-24 06:47] LABS: Bedside Glucose 161 mg/dL (74-106)
[2023-10-24 09:14] VITALS: BP 125/44; PULSE 87; RESP 16; TEMP 36.5; O2SAT 99
[2023-10-24 09:16] VITALS: PULSE 87
[2023-10-24] MEDS: metFORMIN HCl 500 MG Tablet PO ×2 (09:16→18:14)
[2023-10-24] MEDS: Metoprolol Tartrate 50 MG Tablet PO ×2 (09:16→20:39)
[2023-10-24] MEDS: Iron Polysaccharide Complex 150 MG CAPSULE PO (09:16)
[2023-10-24] MEDS: Pantoprazole Sodium 40 MG Tablet PO ×2 (09:16→20:39)
[2023-10-24] MEDS: Ascorbic Acid 500 MG Tablet PO (09:16)
[2023-10-24] MEDS: Vibegron 75 MG TABLET PO (10:53)
[2023-10-24 20:39] VITALS: BP 139/53; PULSE 83
[2023-10-24] MEDS: amLODIPine 2.5 MG Tablet PO (20:39)
[2023-10-24] MEDS: Atorvastatin Calcium 10 MG Tablet 5 MG PO (20:40)
[2023-10-24] MEDS: Latanoprost 0.005% 1 Bottle 1 DRP EACH EYE (20:40)
[2023-10-24 20:48] VITALS: PULSE 83; RESP 14; O2SAT 96
[2023-10-25 05:15] VITALS: PULSE 84; RESP 16; O2SAT 96
[2023-10-25 06:05] LABS: Bedside Glucose 142 mg/dL (74-106)
[2023-10-25] MEDS: Sucralfate 1 GM Tablet PO (06:35)
[2023-10-25 08:26] VITALS: BP 153/55; PULSE 84; RESP 16; TEMP 36.1; O2SAT 98
[2023-10-25 08:29] VITALS: PULSE 84
[2023-10-25] MEDS: Ascorbic Acid 500 MG Tablet PO (08:29)
[2023-10-25] MEDS: Vibegron 75 MG TABLET PO (08:29)
[2023-10-25] MEDS: Metoprolol Tartrate 50 MG Tablet PO (08:29)
[2023-10-25] MEDS: metFORMIN HCl 500 MG Tablet PO (08:29)
[2023-10-25] MEDS: Iron Polysaccharide Complex 150 MG CAPSULE PO (08:29)
[2023-10-25] MEDS: Pantoprazole Sodium 40 MG Tablet PO (08:30)
--- NOTE | 2023-10-28 09:22 | MDS.RN ---
Information for the mds was obtained from review of the clinical record, interview of resident, staff, and direct observation of resident's care.
--- NOTE | 2023-10-30 14:44 | MDS.RN ---
Admission MDS was completed on time , [facility] error rejected original MDS report NALINI 10/22/23.
== END 2023-10-25 11:37 | disposition home or self-care (01) | DRG 690 ==
PROVIDERS: Admitting Provider Family Medicine Geriatric Medicine; PCP Internal Medicine; Visit Provider Family Medicine Geriatric Medicine
DX: N39.0 Urinary tract infection, site not specified (principal); K80.42 Calculus of bile duct with acute cholecystitis without obstruction; E11.39 Type 2 diabetes mellitus with other diabetic ophthalmic complication; D50.9 Iron deficiency anemia, unspecified; E78.5 Hyperlipidemia, unspecified; B96.1 Klebsiella pneumoniae [K. pneumoniae] as the cause of diseases classified elsewhere; I10 Essential (primary) hypertension; K21.9 Gastro-esophageal reflux disease without esophagitis; Z87.891 Personal history of nicotine dependence; Z79.84 Long term (current) use of oral hypoglycemic drugs; H40.9 Unspecified glaucoma; Z79.899 Other long term (current) drug therapy; N32.81 Overactive bladder
CPT/HCPCS: 36415; 36430; 80048; 80061; 82274; 82607; 82962; 85014; 85018; 85025; 86850; 86900; 86901; 86920; 86922; 97110; 97116; 97162; 97166; 97530; 97535; 97802; J7040; P9016; A4216; J1940

== ENCOUNTER 2023-10-21 08:20 | Outpatient (CLI) | payer MEDICARE, OTHER, SELFPAY ==
[2023-10-21] VITALS (7 sets, daily range): BP systolic 130–160; BP diastolic 43–64; PULSE 77–90; RESP 16; TEMP 36.2–36.3; O2SAT 98–100; BMI 19.0
[2023-10-21] MEDS: 0.9% NaCl Peripheral Flush Adult/Peds IV (09:18)
[2023-10-21] MEDS: 0.9% Normal Saline (500mL Bag) 500 ML 15 ML IV (09:18)
[2023-10-21] MEDS: Furosemide 20 MG/2 ML VIAL IV (11:24)
== END 2023-10-21 08:21 | disposition home or self-care (01) ==
LOC: MEDOUTP 08:20
PROVIDERS: PCP Internal Medicine; Referring Provider Family Medicine Geriatric Medicine; Visit Provider Family Medicine Geriatric Medicine
DX: D50.9 Iron deficiency anemia, unspecified (principal)
CPT/HCPCS: 36415; 36430; 86850; 86900; 86901; 86920; 86922; J7040; P9016; A4216; J1940

== ENCOUNTER 2023-12-10 05:47 | Day surgery (SDC) | payer MEDICARE, OTHER, SELFPAY ==
[2023-12-10] VITALS (7 sets, daily range): BP systolic 63–148; BP diastolic 36–56; PULSE 74–90; RESP 14–17; TEMP 36.4–36.5; O2SAT 97–100; BMI 19.8
[2023-12-10] MEDS: Lactated Ringers 1,000 ML 15 ML IV (06:36)
--- NOTE | 2023-12-10 07:00 | EGD_PTH ---
PATIENT: VERONICA HUNT LOC: EN U#:[id number] AGE/SX: 88/F ROOM: RE12/10/[address]: Dr. Darren Olivas DO : 1935 BED: DIS: 12/10/2023 SPEC #: [id number] RECD: 12/10/23 07:53 STATUS: LYUDMILA REAshley #: [id number] VIDYA: 12/10/23 07:[address]: Darren Olivas DEPT: SURGICAL PATHOLOGY RECD BY: Collette Bonilla ENTERED: 12/10/23 09:02 SP TYPE: EGD BIOPSY CLAUDIA DR: Dr. Claire Sharif MD Tissues: Esophagus, NOS Procedures: Special Stain Group II Surgery Specimen Level IV Alcian Blue/PAS (control) HEADER OPERATION: EGD and biopsy and removal of stent PRE-OP DIAGNOSIS: Status post stent, nausea and vomiting TISSUE SUBMITTED: Distal esophagus biopsy MICROSCOPIC DIAGNOSIS Distal esophagus, biopsy: Fragments of gastroesophageal mucosa with chronic inflammation. Intestinal metaplasia (goblet cell metaplasia) not identified. See comment. [facility] 12/11/23 COMMENT Alcian blue/PAS stain with matched control is used in the evaluation of the specimen. MICROSCOPIC DESCRIPTION Slides are reviewed. GROSS DESCRIPTION Received in fixative is one container labeled with the patient's name and designated Distal esophagus biopsy. The specimen consists of multiple irregular fragments of light [place] soft tissue that in aggregate measure 1.2 x 0.3 x 0.1 cm. The specimen is totally submitted in one cassette. [facility] 12/10/23 TC:3 CPT:13644,55723
--- NOTE | 2023-12-10 07:00 | FLU_PTH ---
PATIENT: VERONICA HUNT LOC: EN U#:[id number] AGE/SX: 88/F ROOM: RE12/10/[address]: Dr. Darren Olivas DO : 1935 BED: DIS: 12/10/2023 SPEC #: [id number] RECD: 12/10/23 07:53 STATUS: LYUDMILA REAshley #: [id number] VIDYA: 12/10/23 07:[address]: Darren Olivas DEPT: CYTOLOGY RECD BY: Collette Bonilla ENTERED: 12/10/23 08:48 SP TYPE: Fluid OTHR DR: Dr. Claire Sharif MD Tissues: Bile duct, NOS Procedures: Special Stain Group II Surgery Specimen Level IV Cytospin Fluid HEADER OPERATION: EGD and biopsy and removal of stent PRE-OP DIAGNOSIS: Status post stent, nausea and vomiting TISSUE SUBMITTED: Common biliary stent DIAGNOSIS CYTOLOGY Common biliary stent fluid (cytospin and cellblock): Negative for malignant cells. See comment. [facility] 12/11/2023 COMMENT Clinical correlation and appropriate follow up are necessary. CYTOLOGY STUDY Slides are reviewed. CYTOLOGY GROSS Received is 1 black stent containing 0.3 ml of thick yellow pasty material labeled with the patient's name and and designated per the requisition as Common biliary stent. Submitted for cytology preparation including cell block. mr 12/10/23 TC:5 CPT: 62830,68863
[2023-12-10 07:08] LABS: Bedside Glucose 152 mg/dL (74-106)
--- NOTE | 2023-12-10 07:18 | PCM.HP.STD ---
HPI - General General Date of Admission: 12/10/23 Date of Service: 12/10/23 Chief Complaint: Stent removal HPI Narrative VERONICA HUNT, is a 88 F who came to ED with vomiting, fever and nausea by EMS squad she lives with her daughter who is main caregiver. As per the daughter, she had a fever measuring 103 Fahrenheit between 5 to 6 PM along with nausea. She also threw up in the evening x 2 what she ate in the afternoon. She denies abdominal pain. Her blood pressure was elevated.Heart rate 142-minute, BP 176/65 by EMS. In ED, her blood pressure was also elevated 200/58, heart rate 126/min but later on improved heart rate 113/min, blood pressure 139/39. The patient had abdomen pelvis CT which showed nonspecific GB distention with wall thickening/edema and reported abnormal biliary distention with 14 mm. Furthermore right upper quadrant sonogram was done which reported GB sludge and mild pericholecystic fluid, no sonographic evidence of definite acute mastitis. Dilated CBD without identifiable obstructing calculus. She underwent ERCP with stone extraction and temporary stent placement. Because of her continuing cholecystitis a cholecystostomy tube was placed. She was then transferred to outside institution for cholecystectomy. She comes back in today to have common bile duct stent removed. FOR[facility]LY [facility] Medical History Ambulates with cane Arthritis Diabetes Esophageal stricture GERD (gastroesophageal reflux disease) Glaucoma Gout History of echocardiogram Hyperlipidemia Hypertension Low iron Tobacco dependence in remission Urinary retention Urinary tract infection Walker as ambulation aid Wears dentures Wears glasses Home Medications latanoprost 0.005 % eye drops 1 drp QHS Check with primary doctor 04/04/17 [History Last Taken Unknown] simvastatin 10 mg tablet (Zocor) 10 mg PO QHS Check with primary doctor 04/04/17 [History Last Taken 06/21/23] amlodipine 2.5 mg tablet 2.5 mg PO 2000 Blood Pressure 06/08/23 [History Last Taken Unknown] metoprolol tartrate 50 mg tablet 50 mg PO BID Blood Pressure #0 tabs 06/22/23 [Rx Last Taken 06/22/23] ascorbic acid (vitamin C) 500 mg tablet 500 mg PO 1000 Supplement 30 days #30 tabs 07/04/23 [Rx Last Taken Unknown] Lactobacillus acidophilus (Acidophilus capsule) 1 cap PO DAILY GI Tract 10/06/23 [History Last Taken 10/05/23] metformin 500 mg tablet 500 mg PO BIDCM 30 days #60 tabs 10/22/23 [Rx Last Taken Unknown] pantoprazole 40 mg tablet,delayed release 40 mg PO BID 30 days #60 tabs 10/22/23 [Rx Last Taken Unknown] polysaccharide iron complex 150 mg iron capsule (Ferrex) 150 mg PO DAILY 30 days #30 caps 10/22/23 [Rx Last Taken Unknown] sucralfate 1 gram tablet 1 g PO 0700,1600 30 days #60 tabs 10/22/23 [Rx Last Taken Unknown] mirabegron 50 mg tablet,extended release 24 hr (Myrbetriq) 50 mg PO DAILY 12/04/23 [History Last Taken Unknown] Allergy/AdvReac Type Severity Reaction Status Date / Time betaxolol [From Betoptic] Allergy Itching Verified 12/04/23 13:12 brimonidine [From Alphagan P] Allergy Itching Verified 12/04/23 13:12 cephalexin [From Keflex] Allergy Rash Verified 12/04/23 13:12 nabumetone [From Relafen] Allergy Rash Verified 12/04/23 13:12 Family History Other Diabetes Heart disease Surgical History History of colonoscopy History of ERCP History of esophagogastroduodenoscopy (EGD) History of left oophorectomy History of resection of small bowel Status post laparoscopy with lysis of adhesions Social History household members: family housing: house Smoking Status: Former smoker alcohol intake: never substance use type: does not use ROS Constitutional Constitutional: Denies chills, fever(s) or weight gain ENT HEENT: Denies headache(s), nasal congestion or nasal discharge Cardiovascular Cardiovascular: Denies chest pain or palpitations Respiratory/Chest Respiratory/Chest: Denies cough, excessive phlegm production or shortness of breath with exertion Gastrointestinal Gastrointestinal: Denies abdominal pain, nausea or vomiting Genitourinary Genitourinary: Denies dysuria Musculoskeletal Musculoskeletal: Denies joint pain or joint swelling Integumentary Integumentary: Denies rash or wounds Neurologic Neurologic: Denies focal weakness, numbness or tingling Psychiatric Psychiatric: Denies anxiety, auditory hallucinations, depression, homicidal ideation or suicidal ideation Vital Signs Vital Signs Vital Signs: 12/10/23 06:31 12/10/23 06:31 Temperature 97.6 F L Temperature Source Temporal Pulse Rate 74 Respiratory Rate 17 Respiratory Pattern Normal Blood Pressure 148/56 H Blood Pressure Mean 86 Blood Pressure Source Monitor Blood Pressure Position Semi-Fowlers Blood Pressure Location Right Arm Pulse Ox 98 Oxygen Delivery Method Room Air Weight Weight: 101 lb 6.602 oz Body Mass Index (BMI) 19.8 Physical Exam Const alert General Appearance: cooperative HEENT normocephalic Eyes PERRL and EOMs intact bilaterally Neck supple, no JVD and no carotid bruits Resp normal respiratory effort, normal air movement and clear to auscultation bilaterally Cardio regular rate and regular rhythm GI normal to inspection, nondistended, normoactive bowel sounds, non-tender and non-distended Extremity normal capillary refill General Extremity: Negative for edema Skin no rashes or lesions noted General Skin Exam: no breakdown Psych affect normal Appearance: appropriate Results Lab / Micro Data Labs: Laboratory Results - last 24 hr 12/10/23 06:27: POC Glucose 152 H Assessment & Plan Assessment/Plan (1) Acute cholecystitis with acute cholangitis: PLAN: 88-year-old who was resubmitted to the hospital with UTI, cholecystitis and cholangitis along with choledocholithiasis status post percutaneous drain and status post ERCP with stone extraction and temporary stent placement. She comes in today for stent removal. She was explained alternatives, risk, benefits include not withstanding bleeding, infection, sepsis, perforation, need for emergent surgery and . She will have an ASA of 3.
--- NOTE | 2023-12-10 07:48 | OP.EGD_ITS ---
Patient Name: Kristin Pelletier Procedure Date: 12/10/2023 7:18 AM Date of : 1935 Age: 88 Procedure: Upper GI endoscopy Indications: Dysphagia Providers: Darren Olivas DO Medicines: Monitored Anesthesia Care Patient Profile: This is an 88 year old female. Refer to note in patient chart for documentation of history and physical. Patient has symptoms of chronic dysphagia. Complications: No immediate complications. Procedure: Pre-Anesthesia Assessment: - Prior to the procedure, a History and Physical was performed, and patient medications and allergies were reviewed. The patient is competent. The risks and benefits of the procedure and the sedation options and risks were discussed with the patient. All questions were answered and informed consent was obtained. Patient identification and proposed procedure were verified by the physician in the pre-procedure area. Mental Status Examination: alert and oriented. Airway Examination: normal oropharyngeal airway and neck mobility. Respiratory Examination: clear to auscultation. CV Examination: normal. Prophylactic Antibiotics: The patient does not require prophylactic antibiotics. Prior Anticoagulants: The patient has taken no anticoagulant or antiplatelet agents. ASA Grade Assessment: II - A patient with mild systemic disease. After reviewing the risks and benefits, the patient was deemed in satisfactory condition to undergo the procedure. The anesthesia plan was to use monitored anesthesia care (MAC). Immediately prior to administration of medications, the patient was re-assessed for adequacy to receive sedatives. The heart rate, respiratory rate, oxygen saturations, blood pressure, adequacy of pulmonary ventilation, and response to care were monitored throughout the procedure. The physical status of the patient was re-assessed after the procedure. After obtaining informed consent, the endoscope was passed under direct vision. Throughout the procedure, the patient's blood pressure, pulse, and oxygen saturations were monitored continuously. The gastroscope was introduced through the mouth, and advanced to the second part of duodenum. The upper GI endoscopy was accomplished without difficulty. The patient tolerated the procedure well. Scope In: 7:33:56 AM Scope Out: 7:39:42 AM Total Procedure Duration Time 0 hours 5 minutes 46 seconds Findings: Mucosal changes including ringed esophagus, feline appearance, longitudinal furrows and small-caliber esophagus were found in the lower third of the esophagus. Biopsies were obtained from the proximal and distal esophagus with cold forceps for histology of suspected eosinophilic esophagitis. Verification of patient identification for the specimen was done. Estimated blood loss was minimal. A moderate Schatzki ring was found at the gastroesophageal junction. A guidewire was placed and the scope was withdrawn. Dilation was performed with a Savary dilator with no resistance at 39 Fr. The dilation site was examined and showed moderate mucosal disruption. Estimated blood loss was minimal. No other significant abnormalities were identified in a careful examination of the stomach. A foreign body was found in the second portion of the duodenum. Removal of the stent was accomplished with a snare. Verification of patient identification for the specimen was done. Estimated blood loss was minimal. Impression: - Esophageal mucosal changes secondary to eosinophilic esophagitis. - Moderate Schatzki ring. Dilated. - Duodenal foreign body. Removal was successful. - Biopsies were taken with a cold forceps for evaluation of eosinophilic esophagitis. Recommendation: - Discharge patient to home. - Resume previous diet. - Continue present medications. - Await pathology results. Procedure Code(s): --- Professional --- 20767, Esophagogastroduodenoscopy, flexible, transoral; with removal of foreign body(s) 22543, 51, Esophagogastroduodenoscopy, flexible, transoral; with insertion of guide wire followed by passage of dilator(s) through esophagus over guide wire 95907, 59, Esophagogastroduodenoscopy, flexible, transoral; with biopsy, single or multiple CPT copyright 2021 [employer]. All rights reserved. The codes documented in this report are preliminary and upon turret lathe operator review may be revised to meet current compliance requirements. Darren Olivas DO 12/10/2023 7:48:14 AM This report has been signed electronically. Number of Addenda: 0 Note Initiated On: 12/10/2023 7:18 AM
== END 2023-12-10 08:44 | disposition home or self-care (01) ==
LOC: EN 05:49 → AC 05:57
PROVIDERS: PCP Internal Medicine; Referring Provider Internal Medicine; Visit Provider Internal Medicine Gastroenterology
PROC: 0DJ08ZZ Inspection of Upper Intestinal Tract, Via Natural or Artificial Opening Endoscopic (ICD-10-PCS; CPT 43235; principal; 2023-12-10 06:55)
DX: Z46.59 Encounter for fitting and adjustment of other gastrointestinal appliance and device (principal); E11.9 Type 2 diabetes mellitus without complications; I10 Essential (primary) hypertension; K20.0 Eosinophilic esophagitis; Z87.891 Personal history of nicotine dependence; Z90.49 Acquired absence of other specified parts of digestive tract; K22.2 Esophageal obstruction; Z79.899 Other long term (current) drug therapy; Z79.84 Long term (current) use of oral hypoglycemic drugs; D50.9 Iron deficiency anemia, unspecified
CPT/HCPCS: 43247; 43248; 43239; 82962; 88108; 88305; 88313; J7120; J2405

== ENCOUNTER → 2023-12-16 | Outpatient (CLI) | payer MEDICARE, OTHER, SELFPAY ==
[2023-12-16 12:26] LABS: Hematocrit 40.5 % (37-47); Hemoglobin 12.9 g/dL (12.0-15.0); Mean Corp Hgb Conc 31.9 g/dL (32-36); Mean Corpuscular Hgb 28.8 pg (27.0-32.0); Mean Corpuscular Volume 90.4 fL (81-99); Mean Platelet Vol. 10.7 fl (6.2-12.0); Platelet Count 310 K/mm3 (150-450); RBC Distribution Width CV 15.7 % (11.6-14.6); RBC Distribution Width SD 52.1 fl (35.1-43.9); Red Blood Count 4.48 M/mm3 (4.2-5.4); White Blood Count 8.2 K/mm3 (4.4-11.0)
[2023-12-16 12:48] LABS: Anion Gap 6 (5-15); BUN 34 mg/dL (7-18); BUN/Creat Ratio 29.6 RATIO (10-20); Calcium,Total 9.8 mg/dL (8.5-10.1); Chloride 102 mmol/L (98-107); Creatinine, Serum 1.15 mg/dL (0.55-1.02); EST Glomerular Filtration Rate 47 mL/min (>60); Est Glom Filt Rate - Afr Amer 57 mL/min (>60); Glucose 188 mg/dL (74-106); Potassium 4.8 mmol/L (3.5-5.1); Sodium Level 134 mmol/L (136-145)
== END | disposition home or self-care (01) ==
LOC: MTLAB 09:48
PROVIDERS: PCP Internal Medicine; Referring Provider Urology; Visit Provider Urology
DX: N32.9 Bladder disorder, unspecified (principal)
CPT/HCPCS: 36415; 80048; 85027

== ENCOUNTER 2024-01-01 05:47 | Day surgery (SDC) | payer MEDICARE, OTHER, SELFPAY ==
[2024-01-01 06:55] VITALS: BP 179/57; PULSE 84; RESP 16; TEMP 36.6; O2SAT 100; BMI 20.2
[2024-01-01] MEDS: Lactated Ringers 1,000 ML 15 ML IV (06:55)
--- NOTE | 2024-01-01 07:30 | BLA_PTH ---
PATIENT: VERONICA HUNT [place]: [facility] [place][id number] AGE/SX: 88/F ROOM: RE01/01/[address]: Dr. Dior Hwang MD : 1935 BED: DIS: 01/01/2024 SPEC #: [id number] RECD: 01/01/24 10:11 STATUS: LYUDMILA LANDERS #: [id number] VIDYA: 01/01/24 07:[address]: Dior Hwang DEPT: SURGICAL PATHOLOGY RECD BY: Ronda Hernandez ENTERED: 01/01/24 10:33 SP TYPE: BLADDER BX OTHR DR: Dr. Claire Sharif MD Tissues: Urinary bladder, NOS Procedures: Surgery Specimen Level IV HEADER OPERATION: Cysto, biopsy, fulguration, bladder tumor PRE-OP DIAGNOSIS: Overactive bladder, lesion of bladder, nocturia, urge incontinence TISSUE SUBMITTED: Bladder biopsy MICROSCOPIC DIAGNOSIS Bladder, biopsy: Fragments of urothelial mucosa with moderate chronic inflammation. Negative for malignancy. See comment. LACY/ 01/02/2024 COMMENT Detrusor muscle is not identified in the specimen. Correlation with clinical, cystoscopic findings and appropriate follow up are necessary. MICROSCOPIC DESCRIPTION Slides are reviewed. GROSS DESCRIPTION Received in fixative is one container labeled with the patient's name and designated Bladder biopsy. The specimen consists of three irregular fragments of light [place] soft tissue that in aggregate measure 0.5 x .2 x 0.1 cm. The specimen is totally submitted in one cassette. Loy 01/01/24 TC:3 CPT:84525
[2024-01-01] MEDS: Ciprofloxacin 200 MG/100 ML BAG 100 MG IV (07:40)
--- NOTE | 2024-01-01 07:45 | DCINST_ITS ---
Discharge Instructions Diet Discharge Diet: No restrictions Activity Discharge Activity: Return to Normal Activity Dressing / Incision Call your doctor if you observe: Fever of 101 or Higher, Inability to urinate and Inability to have a bowel movement Follow Up Care Please Follow Up With: Dior Hwang MD When: Next week in the office for biopsy results Test Results: Test results from this visit will be discussed in further detail at your follow- up appointment, if applicable. Discharge Plan Admission Attending Provider: Dior Hwang Primary Care Provider: Claire Sharif Discharge Orders/Prescriptions Prescriptions: New nitrofurantoin monohyd/m-cryst [Macrobid] 100 mg capsule 100 mg PO BID Qty: 6 0RF Rx Instructions: must administer with a meal/food Continued latanoprost 1 DROP bottle 1 drp Each Eye QHS simvastatin [Zocor] 10 MG tablet 10 mg PO QHS metoprolol tartrate 50 mg Tablet 50 mg PO BID Qty: 0 0RF ascorbic acid (vitamin C) 500 mg Tablet 500 mg PO 1000 30 Days Qty: 30 0RF Acidophilus Capsule 1 cap PO DAILY metformin 500 mg Tablet 500 mg PO BIDCM 30 Days Qty: 60 0RF pantoprazole 40 mg Tablet,Delayed Release (Dr/Ec) 40 mg PO BID 30 Days Qty: 60 0RF fesoterodine 4 mg tablet extended release 24 hr 4 mg PO DAILY sucralfate 1 gram Tablet 1 g PO DAILY polysaccharide iron complex [Ferrex 150] 150 mg iron Capsule 150 mg PO QODAY amlodipine 2.5 mg tablet 2.5 mg PO QHS Referrals / Follow Up: Claire Sharif MD [Primary Care Provider] - Disposition Disposition (needs filled in before D/C Order can be placed): Home, Self Care
--- NOTE | 2024-01-01 07:47 | PCM.OPRPT ---
Report of Operation Date of Procedure: 01/01/24 Pre-Operative Diagnosis: bladder lesion, urinary tract infection Post-Operative Diagnosis: same Surgery/Procedure Performed:: cystoscopy with bladder biopsy and fulguration for hemostasis and tissue treatment Surgeon: Dior Hwang Type of Anesthesia: MAC Specimen's removed: Bladder biopsy Description of Procedure: The patient is an 88-year-old female with recurrent urinary tract infections. She had a cystoscopy in the office revealing 3 areas of erythema consistent with ulceration. She now presents for biopsy and fulguration of these areas. Informed consent was obtained. The patient was taken to the operating room and placed on the operating room table. Anesthesia monitored the head, neck, airway, IV access and vital signs throughout the case. Once anesthesia was appropriately administered, the patient was placed into dorsolithotomy position and was prepped and draped in usual sterile fashion. The cystoscope was inserted through the urethra under direct visualization into the urinary bladder. The previously seen 3 areas of ulceration were identified. They were smaller in size at this time. Each one was biopsied with a flexible biopsy forcep. The areas were then fulgurated for hemostatic control and tissue treatment. The bladder was then emptied and the cystoscope was removed. The patient was then awakened and taken to the recovery room in good condition. There were no complications during this procedure. Grafts/Implants Used: none Complications none Admit VTE Documentation VTE Present on Admission: Yes VTE Mechan Device Prophylaxis: SCD's VTE Pharm Prophylaxis ordered?: No Reason prophylaxis not ordered:: Treatment Not Indicated
[2024-01-01 08:05] VITALS: BP 108/47; BP 179/57; PULSE 82; RESP 16; TEMP 36.6; O2SAT 99
[2024-01-01 08:09] VITALS: BP 124/45; BP 179/57; PULSE 80; RESP 16; O2SAT 82
[2024-01-01 08:15] VITALS: BP 132/44; BP 179/57; PULSE 83; RESP 16; O2SAT 98
[2024-01-01 08:52] VITALS: BP 179/57
== END 2024-01-01 08:59 | disposition home or self-care (01) ==
LOC: SDC 05:47 → AC 05:49
PROVIDERS: PCP Internal Medicine; Referring Provider Urology; Visit Provider Urology
PROC: 0TBB8ZX Excision of Bladder, Via Natural or Artificial Opening Endoscopic, Diagnostic (ICD-10-PCS; CPT 52234; principal; 2024-01-01 07:20)
DX: N30.90 Cystitis, unspecified without hematuria (principal); E11.9 Type 2 diabetes mellitus without complications; R35.0 Frequency of micturition; R35.1 Nocturia; I10 Essential (primary) hypertension; E78.5 Hyperlipidemia, unspecified; Z87.891 Personal history of nicotine dependence; Z79.899 Other long term (current) drug therapy; Z79.84 Long term (current) use of oral hypoglycemic drugs; N32.81 Overactive bladder; N39.41 Urge incontinence
CPT/HCPCS: 52234; 00910; J7120; 88305; J0744; J2405